=== PATIENT | female | born 1940 | race Caucasian/White ===

== ENCOUNTER 2016-06-04 15:44 | Inpatient (IN) | payer OTHER ==
[~2016-06-04] VITALS: Ht 162.6 cm; Wt 105.0 kg
[2016-06-04] MEDS: ISOSORBIDE MON. (IMDUR) 30 MG XR TAB PO SCH (09:00)
[~2016-06-04 15:44] MED LIST: /DULO30CA; /WARF25TA; /WARF25TA OR; ABIL5TAB; ACET500C PO; ACET65TA OR; ALOP5TAB; ASPI1TAB PO; ASPI81TA83; ATIV1TAB7 PO; BUPR150T PO; CARV3.12 PO; CARV6.25 OR; CLOP75TA2 PO; COLA50CA OR; CORE12.5; CORE6.25; CORE6.25 PO; DONETAB6 PO; DRAM50TA7 PO; DULO20CA; FENT12PA TOP; HUMALOG INSULIN INJ; HUMULOG; HYDR25TA6; INSUH10VL SC; INSULANT; INSULIN LANTUS; INSULIN LANTUS SQ; LASI20TA PO; LISI-538 PO; LISI10TA4; LISI20TA5; LISIPOW PO; MELO15TA4 PO; MILKSUS; MILKSUS OR; MIRA3350 PO; MIRALEX PO; NITR4TASL SL; OXYC-517 PO; OXYC1TAB23 PO; PERC5TAB8; PERC7.5T8; PERC7.5T8 PO; PLAVIX PO; PRIL20CA PO; SENN8.6T14; SERO200T; SERO400T; SPIR25TA2 PO; SPIRONOLACTONE-HCTZ PO; TIZA2CAP3 PO; TRAZ100T OR; TRAZ25TA PO; TRAZ50TA; VICODINES TAB; VITA100037 PO; ZOLP5TAB PO
[2016-06-04] MEDS ORDERED: ISOSORBIDE MONONITRATE 10MG TABLET PO SCH (16:00)
[2016-06-04] MEDS ORDERED: ASPIRIN 81 MG CHEW TABLET As Ordered ONE (16:27)
[2016-06-04 16:57] LABS: MEAN CORPUSCULAR HEMOGLOBIN 23.6 pg (27.0-33.0); MEAN CORPUSCULAR HGB CONC 29.8 g/dl (32.0-36.5); MEAN CORPUSCULAR VOLUME 79.1 fl (80.0-96.0); PLATELET COUNT, AUTOMATED 390 k/mm3 (150-450); WHITE BLOOD COUNT 8.9 K/mm3 (4.0-10.0)
--- NOTE | 2016-06-04 17:00 | REP ---
AP portable sitting chest radiograph 06/04 17 Indication: Chronic cough Comparison: PA and lateral chest 03/25/2016 and PA and lateral chest 07/11/2015, CTA chest 04/30/2014 Cardiac silhouette is mild to moderately enlarged and there is left ventricular prominence again noted. There is cephalization of pulmonary vasculature consistent with pulmonary venous hypertension. Small amount of bibasilar fibro atelectatic changes are noted Impression: Mild to moderate cardiomegaly with left ventricular prominence again noted. Pulmonary venous hypertension Bibasilar fibro atelectatic changes / scarring Signed by Lilia Cole MD 06/04/2016 04:51 P
[2016-06-04 17:13] LABS: CALCIUM LEVEL 8.6 MG/DL (8.8-10.2); CREATININE FOR GFR 1.35 MG/DL (0.55-1.02); GLOMERULAR FILTRATION RATE 40.8 (>39); POTASSIUM SERUM 4.1 MEQ/L (3.5-5.1)
[2016-06-04 17:18] LABS: BASOPHILS 1 % (0-4); EOSINOPHILS 1 % (0-5)
[2016-06-04 17:19] LABS: ANISOCYTOSIS 1+; HYPOCHROMASIA 2+; MICROCYTOSIS 1+
[2016-06-04] MEDS ORDERED: ISOVUE-370 76% 100ML VIAL (Q9967) As Ordered ONE (17:47)
--- NOTE | 2016-06-04 18:26 | REP ---
Clinical: Acute chest pain. Technique: Axial contrast enhanced images from the thoracic inlet to the upper abdomen using 100 ml Isovue 370 intravenous contrast material with coronal and sagittal re-formations. Findings: Satisfactory enhancement of the pulmonary vasculature is achieved and no filling defects are identified to suggest pulmonary embolus. Thoracic aorta is normal caliber without aneurysm or dissection. Cardiomegaly is appreciated along with mild pulmonary vascular congestion and trace atelectasis. No pleural or pericardial effusion. No pneumothorax. No adenopathy. Impression: No evidence for pulmonary embolus. Cardiomegaly with pulmonary venous congestion and trace atelectasis. Signed by Vivek Gaona MD 06/04/2016 06:17 P
[2016-06-04] MEDS ORDERED: GLUCOSE 4 GM CHEW TABLET PO PRN (18:45)
[2016-06-04] MEDS ORDERED: GLUCAGON FOR INJ 1 MG VIAL (J1610) SC PRN (18:45)
[2016-06-04] MEDS ORDERED: DEXTROSE 50% 50 ML SYRINGE IV PRN (18:45)
[2016-06-04] MEDS ORDERED: FUROSEMIDE 40 MG/4 ML VIAL (J1940) As Ordered ONE (18:48)
[2016-06-04] MEDS ORDERED: MORPHINE 2 MG/ML 1ML SYRINGE IV PRN ×2 (19:30→20:45)
[2016-06-04] MEDS ORDERED: METOPROLOL TART 25 MG TABLET As Ordered ONE (19:38)
[2016-06-04] MEDS ORDERED: ISOSORBIDE MON. (IMDUR) 30 MG XR TAB As Ordered ONE (19:38)
[2016-06-04] MEDS ORDERED: MORPHINE 2 MG/ML 1ML SYRINGE As Ordered ONE (19:38)
[2016-06-04] MEDS ORDERED: METO25TA74 PO (19:40)
[2016-06-04] MEDS ORDERED: BUPR300T34 PO (19:42)
[2016-06-04] MEDS ORDERED: BUPR150T3 PO (19:42)
[2016-06-04 19:43] LABS: RETIC HEMOGLOBIN CONTENT CHr 22.3 PG (24-36); RETICULOCYTE ABSOLUTE ADVIA212 80 x10(9)/L (17-77)
[2016-06-04] MEDS ORDERED: OMEP40CA2 PO (19:50)
[2016-06-04] MEDS ORDERED: INSULANT SC (19:50)
[2016-06-04] MEDS ORDERED: AMLO10TA2 PO (19:50)
[2016-06-04] MEDS ORDERED: FURO40TA2 PO (19:50)
[2016-06-04] MEDS ORDERED: ALBU17IN INH (19:50)
[2016-06-04 19:51] LABS: REASON FOR REVIEW COMPREHENSIVE REVIEW
[2016-06-04] MEDS ORDERED: ALBUTEROL 90 MCG/ACT 8GM HFA INHALER INH PRN (20:15)
[2016-06-04] MEDS ORDERED: NITROGLYCERIN 0.4 MG SUBL TABLET SL PRN (20:15)
[2016-06-04] MEDS ORDERED: LEVALBUTEROL 1.25 MG/0.5 ML CONCENTRATE NEB INH PRN (20:30)
[2016-06-04] MEDS: HumaLOG INSULIN (NovoLOG) PER UNIT SC SCH (21:00)
[2016-06-04] MEDS ORDERED: LEVEMIR (INSULIN DETEMIR) 1 UNITS/0.01ML SC SCH (21:00)
--- NOTE | 2016-06-04 21:25 | HPE ---
DATE OF ADMISSION: 06/04/2016 INPATIENT HOSPITALIST: Dr. Marcelo Dunlap CHIEF COMPLAINT: Cough, shortness of breath, chest pressure. HISTORY OF THE PRESENT ILLNESS: The patient is a 76-year-old female with a history of coronary artery disease, status post myocardial infarction (AR), chronic low back pain, depression, diabetes, hypercholesterolemia, 40 pack-year history of smoking, breast cancer, iron deficiency anemia, previous narcotic withdrawal and overdose, presents to the emergency room with a 3-day history of worsening cough and shortness of breath and chest tightness for the past 4 days, described in the substernal area without any radiation, accompanied by worsening shortness of breath and exercise intolerance. The patient has been sleeping on 2-3 pillows. No recent weight gain. She has lost 5 pounds in the past 2 weeks. No lower extremity edema. The patient complains of orthopnea, waking up at night 3- 4 times due to worsening shortness of breath. The patient has had a chronic cough, which is dry, since June of last year in 2015. She has been referred to electronic equipment installer, Dr. Coley, who had done pulmonary function testing last week with followup on 06/15/2016. Results were not available. She has also followed up Adali Barger at Dr. Ojeda's office, who has recommended a stress test which the patient has declined due to financial reasons. She now presents with worsening shortness of breath and chest pain. Denies any fever or chills. No cough production. No sick contacts. She was found to have pulmonary venous hypertension, BNP of 723 and admitted for congestive heart failure, new onset. She was also found to be severely anemic with a hemoglobin of 7.4, but denied any bright red blood per rectum, melena, coffee-ground emesis or hematemesis, black tarry stools at home. Hospitalist service was called for admission for symptomatic anemia, congestive heart failure. She otherwise denies any fever, chills, nausea, vomiting, diaphoresis, upper or lower extremity numbness, tingling sensation. Complains of generalized weakness, insomnia secondary to increasing shortness of breath. Denies any depression or anxiety. All other systems are otherwise negative. The patient is noncompliant with salt intake and has been eating a lot of soup, which is store bought in cans. She admits to not following a salt restriction. PAST MEDICAL HISTORY: Coronary artery disease, AR, stent. Hypertension. Hyperlipidemia. Previous smoker. Chronic low back pain. Depression. Diabetes. Narcotic withdrawal. Breast cancer. Iron deficiency anemia that has not been treated. PAST SURGICAL HISTORY: Hysterectomy. Cholecystectomy. Coronary stents. Carpal tunnel repair bilaterally. Knee replacement bilaterally. Right lumpectomy. ALLERGIES: To STATINS. AMARYL causing shaky. CODEINE upset stomach. STRAWBERRIES causing a rash. TRAZODONE confusion. GABAPENTIN confusion. LYRICA confusion. AUGMENTIN vomiting. BYETTA makes her feel weird. HOME MEDICATIONS: - metatarsal 25 mg daily - lorazepam 1 mg nightly as needed - bupropion 450 mg once daily - Nitroquick 0.4 every 5 minutesPRN chest pain - spironolactone 25 mg daily - Plavix 75 mg daily - Norvasc 10 mg daily - Coreg 3.125 mg twice a day - Lasix 40 mg daily - aspirin 81 mg daily - Prilosec 40 mg daily - Lantus insulin 60 units nightly - Novolin insulin sliding scale SOCIAL HISTORY: Formerly smoked, quit over 10 years ago. No alcohol use or recreational drug use. , lives with spouse. FAMILY HISTORY: Father with colon cancer, mother with cerebrovascular accident. Siblings with cerebrovascular accident and cystic fibrosis in two brothers and a sister. REVIEW OF SYSTEMS: Per history of the present illness. Twelve point system otherwise negative. PHYSICAL EXAMINATION: Vital Signs: Blood pressure 168/80, pulse 93, respiratory rate 18, temperature 98.1, 99% on 2 liters nasal cannula. 105.69 kg. 5 feet 6 inches tall. General: The patient is in mild distress, unable to speak in full sentences. Mild use of respiratory accessory muscles. Positive jugular venous distention. Pupils are round and reactive to light. Dry mucous membranes. No pharyngeal erythema, tonsillar exudate. No cervical lymphadenopathy, thyromegaly. Lungs: Diminished breath sounds, bilateral rales and rhonchi. Heart: S1, S2, sinus rhythm. No murmurs, rubs or gallops. Abdomen: Soft, nontender, nondistended. Positive bowel sounds. Obese abdomen. Extremities: No pitting edema. No cyanosis, clubbing. EKG: Sinus rhythm, ventricular rate of 81, occasional PVCs, VT interval 195, QRS duration 106. Nonspecific T-wave abnormality. LABORATORY DATA: White count 8.9, hemoglobin 7.4, hematocrit 24, platelet count 390. Sodium 143, potassium 4.1, chloride 108, bicarbonate 27, BUN 18, creatinine 1.35, glucose 107, A1c 7.1, BNP 723. CT chest: No pulmonary embolism (PE). Pulmonary venous congestion and trace atelectasis. ASSESSMENT AND PLAN: This is a 76-year-old female with a history of breast cancer, chronic iron deficiency anemia, not treated, chronic cough since June 2015, pulmonary function test done by Dr. Coley but no results available, coronary artery disease, myocardial infarction, coronary stents, on chronic aspirin and Plavix, hypertension, hypercholesterolemia, previous history of smoking, chronic low back pain, diabetes, hypertension, presents to the emergency room with worsening shortness of breath for the past 4 days and complains of chest pressure and tightness. EKG is unremarkable for acute ischemia. Troponin is negative. Chest x-ray shows pulmonary venous hypertension. BNP is elevated at 723. The patient is admitted for congestive heart failure, new onset, secondary to symptomatic anemia with hemoglobin of 7.4. She will be admitted as an inpatient for two midnights, assigned to hospitalist service, Dr. Marcelo Dunlap. IMPRESSION: Congestive heart failure, most likely secondary to severe symptomatic anemia. The patient's cardiac marker is negative. EKG is unremarkable for acute ST-T wave changes. She will be admitted to the progressive care unit (PCU) under telemetry. Strict intake and output, daily weights and fluid restriction. Lasix every 6 hours and treat underlying precipitating factor, which is her anemia. At this time, she also complains of chest pressure and tightness. Troponins will be cycled every 6 hours and nitroglycerin will be made available. She will be started on control blood pressure. The patient will be continued on her home medications, Coreg, aspirin and Plavix and spironolactone. If ongoing chest pain and elevated blood pressure, will start on nitro paste for better blood pressure control. At this time, the patient will be given Imdur and hydralazine as creatinine is abnormal at 3.15 with acute kidney injury. Symptomatic anemia. Hemoglobin of 7.4. Check iron studies, hemoccult stool, transfuse 3 units of blood, congestive heart failure with Lasix routinely and check peripheral smear and reticulocyte count, start on iron , bowel regimen and vitamin C. Hypertension, uncontrolled, due to shortness of breath, congestive heart failure and the patient will be given hydralazine and nitrates, due to acute kidney injury, she will be continued on her beta blockade, spironolactone and Lasix. Hypercholesterolemia. Check fasting lipid profile in the morning. The patient has had adverse effects from statins in the past. Chronic cough. Nebulizer treatments for now and Prilosec. Obtain results of PFTs from Dr. Coley's office. Nebulizer treatments routinely and as needed. History of breast cancer, chronic. Type 2 diabetes. Consistent carbohydrate diet, insulin sliding scale. Continue on Levemir insulin, titrate accordingly for better glycemic control. Chronic back pain. Outpatient followup with Dr. Weeks at the pain clinic. Prior history of smoking, quit in 1987. The patient will be assigned to Dr. Marcelo Dunlap at 10:00 p.m. on 06/04/2016. He will assume care of this patient at 7:00 a.m. on 06/05/2016. GRICEL
--- NOTE | 2016-06-04 21:30 | EDDOCDS ---
Physician Documentation [facility] Name: Aubree Deleon Age: 76 yrs Sex: Female : 1940 Arrival Date: 06/04/2016 Time: 15:44 Bed 12 Private MD: Disposition: 06/04 18:44 Critical Care: Critical care not applicable. pc Disposition: 06/04/16 18:47 Hospitalization ordered by Reyna Jolly for Inpatient Admission. Preliminary diagnosis are Dyspnea, Acute systolic (congestive) heart failure, Type 2 diabetes mellitus. - Bed requested for M ICU. - Status is Inpatient Admission. jmb - Condition is Stable. - Problem is new. - Symptoms are unchanged. HPI: 16:24 This 76 yrs old Female presents to ER via Ambulance with complaints of Chest pc Pain. 16:24 The history is obtained from the patient. She has had a cough for 11 months, has felt pc worse over the past 3 days and became SOB just MINING MANAGER while at rest. She had chest pain, centrally, while coughing. EMS was called and they gave NTG x 6 without relief. However, her only concern during my interview is to get a CT of her chest done today, instead of having to do it as an out-patient tomorrow as previously scheduled by Dr. Coley. She has seen Cardiology and Pulmonology in the past week for the ongoing cough and SOB. She has had PFTs done and has a scheduled CT as above. Her Livestock Farm Manager offered a stress test that she has declined. Historical: - Allergies: Bgpvnpp-Uwe-Lqz Reductase Inhibitors; Amaryl (shaking); Codeine Sulfate (Upset stomach); Strawberries (Rash); Trazodone (confusion); GABAPENTIN (confusion); Lyrica (confusion); Augmentin (Vomit); Byetta (makes her feel weird); - Home Meds: 1. metoprolol succinate 25 mg Tb24 1 tab once daily (Last dose: 06/04/2016 08:00) 2. lorazepam 1 mg Oral tab qhs prn (Last dose: 06/03/2016 20:00) 3. bupropion HCl 450 mg Oral Tb24 once daily (Last dose: 06/04/2016 08:00) 4. NitroQuick 0.4 mg SL subl 1 tab every 5 minutes (Last dose: 06/04/2016 15:50) 5. spironolactone 25 mg Oral tab once daily (Last dose: 06/04/2016 08:00) 6. Plavix 75 mg Oral tab once daily (Last dose: 06/04/2016 08:00) 7. amlodipine 10 mg Oral tab 1 tab once daily (Last dose: 06/04/2016 08:00) 8. carvedilol 3.125 mg oral tab 2 times per day (Last dose: 06/04/2016 08:00) 9. furosemide 40 mg Oral tab 1 tab once daily (Last dose: 06/04/2016 08:00) 10. aspirin 81 mg Oral tab 1 tab once daily (Last dose: 06/04/2016 08:00) 11. aspirin 81 mg Oral tab 1 tab once daily (Last dose: 06/04/2016 08:00) 12. omeprazole 40 mg Oral cpDR 1 cap once daily (Last dose: 06/04/2016 08:00) 13. Lantus 100 unit/mL Sub-Q crtg 60 unit nightly (Last dose: 06/03/2016 20:00) 14. Novolog 100 unit/mL Sub-Q soln sliding scale (Last dose: 06/04/2016 12:00) - PMHx: Depression; Diabetes - IDDM: controlled; Hypercholesterolemia; Hypertension; CO; Chronic Low Back Pain; narcotic withdrawl (overdose); Breast CA; Iron Deficiency Anemia - not treated; - PSHx: Hysterectomy; Cholecystectomy; Coronary Stents; Carpal Tunnel Repair- Bilateral; knee replacement bilaterally; Lumpectomy- Right; - The history from nurses notes was reviewed: and I agree with what is documented. - Social history: Smoking status: Patient states was never smoker of tobacco. No barriers to communication noted, Speaks appropriately for age. - : The pt / caregiver states he / she is not on anticoagulants. The pt / caregiver states he / she is on anticoagulants: Plavix. Home medication list is obtained from the patient. - Hospitalizations: : No recent hospitalization is reported. - Exposure Risk Screening:: None identified. - Immunization history:: All immunizations up-to-date. - Family history: Not pertinent. - Social history:: the patient is a non-smoker, the patient does not drink alcohol. ROS: 16:28 MS/Skin/Lymph: chronic back pain. pc 16:28 All systems are negative except as listed. Exam: 16:28 General Appearance: no acute distress, alert. pc 16:28 EENT: normal eye inspection, ears, nose and throat normal, pharynx normal, mucous membranes moist 16:28 Neck: The exam reveals no acute abnormalities. ROM is normal and painless. No nuchal rigidity is noted.. 16:28 Respiratory: no respiratory distress, normal breath sounds, chest non-tender. 16:28 CVS: regular pulse rate, regular rhythm, normal S1 and S2, no murmurs, strong peripheral pulses, normal capillary refill. 16:28 Abdomen: soft, non-tender, no organomegaly, normal bowel sounds. 16:28 Back: normal inspection. 16:28 Skin: skin color is normal, warm, dry. 16:28 Extremities: The extremities have a grossly normal appearance, are non-tender, without acute ROM abnormalities, no pedal edema. 16:28 Neuro: oriented x 3, cranial nerves normal as tested, no motor deficits, no sensory deficits. 16:28 Psych: normal mood. Vital Signs: 16:00 BP 168 / 80; Pulse 93; Resp 18; Temp 98.1(O); Pulse Ox 99% on 2 lpm NC; Weight 105.69 dem1 kg / 233.01 lbs; Height 5 ft. 6 in. (167.64 cm); Pain 4/10; 16:12 BP 143 / 65 (auto/); ml6 16:12 Pulse 82 MON; Resp 16; Pulse Ox 99% on 2 lpm NC; ml6 16:27 BP 156 / 74 (auto/); ml6 16:27 Pulse 82 MON; Resp 16; Pulse Ox 99% on 2 lpm NC; ml6 16:42 BP 170 / 72 (auto/); ml6 16:42 Pulse 80 MON; Resp 18; Pulse Ox 99% on 2 lpm NC; ml6 16:57 BP 167 / 77 (auto/); ml6 16:57 Pulse 80 MON; Resp 18; Pulse Ox 98% on 2 lpm NC; ml6 17:12 BP 163 / 75 (auto/); ml6 17:12 Pulse 80 MON; Resp 18; Pulse Ox 99% on 2 lpm NC; Pain 0/10; ml6 17:27 BP 163 / 74 (auto/); ml6 17:27 Pulse 80 MON; Resp 16; Pulse Ox 99% on 2 lpm NC; Pain 0/10; ml6 17:42 BP 166 / 77 (auto/); ml6 17:42 Pulse 82 MON; Resp 18; Pulse Ox 99% on 2 lpm NC; ml6 17:57 BP 174 / 68 (auto/); ml6 17:57 Pulse 92 MON; Resp 16; Pulse Ox 98% on 2 lpm NC; ml6 18:12 BP 170 / 74 (auto/); ml6 18:12 Pulse 86 MON; Resp 18; Pulse Ox 98% on 2 lpm NC; Pain 0/10; ml6 18:27 BP 181 / 78 (auto/); ml6 18:27 Pulse 86 MON; Resp 16; Temp 97.8(O); Pulse Ox 99% on 2 lpm NC; Pain 0/10; ml6 18:42 Pulse 86 MON; Pulse Ox 98% ; mlc 18:42 BP 169 / 72 (auto/); mlc 18:57 Pulse 92 MON; Pulse Ox 99% ; mlc 18:57 BP 182 / 84 (auto/); mlc 19:12 Pulse 92 MON; Pulse Ox 96% ; mlc 19:12 BP 187 / 87 (auto/); mlc 19:27 Pulse 92 MON; Pulse Ox 97% ; mlc 19:27 BP 198 / 81 (auto/); mlc 19:46 BP 195 / 84 (auto/); mlc 19:46 Pulse 90 MON; Pulse Ox 97% ; mlc 19:57 BP 164 / 80 (auto/); mlc 19:57 Pulse 92 MON; Pulse Ox 96% ; mlc 20:12 Pulse 84 MON; Pulse Ox 97% ; mlc 20:12 BP 169 / 74 (auto/); mlc 20:27 Pulse 74 MON; Pulse Ox 97% ; mlc 20:27 BP 150 / 67 (auto/); mlc 20:38 BP 129 / 68 (auto/); mlc 20:38 Pulse 68 MON; Pulse Ox 97% ; mlc 20:42 Pulse 72 MON; Pulse Ox 97% ; mlc 20:42 BP 136 / 64 (auto/); mlc 20:52 Pulse 64 MON; Pulse Ox 97% ; mlc 20:52 BP 124 / 60 (auto/); mlc 20:57 BP 137 / 62 (auto/); mlc 20:57 Pulse 66 MON; Pulse Ox 96% ; mlc 21:09 BP 129 / 61 (auto/); mlc 21:09 Pulse 64 MON; Pulse Ox 96% ; mlc 21:12 BP 138 / 65 (auto/); mlc 21:12 Pulse 64 MON; Pulse Ox 96% ; mlc 16:00 Body Mass Index 37.61 (105.69 kg, 167.64 cm) dem1 MDM: 15:59 ECG WITH READING ER PHYS+CARDIAG ordered. EDMS 16:20 Maintenance Mechanic 2Nd Shift/Pulse Ox/q 30 min VS ordered. pc 16:20 IV Saline Lock ordered. pc 16:20 Rhythm Strip to chart ordered. pc 16:21 Basic Metabolic Profile Ordered. EDMS 16:21 CBC with Diff Ordered. EDMS 16:21 Cardiac Injury Profile Ordered. EDMS 16:21 Troponin Ordered. EDMS 16:21 BNP Ordered. EDMS 16:22 Chest, 1 View Ordered. EDMS 16:23 Aspirin Chewable Tablet 324 mg PO once ordered. pc 16:25 A1C Ordered. EDMS 16:28 Differential Diagnosis: reported dyspnea with normal examination; central chest pain pc with cough, history of CAD and refusing stress test. Plan: labs, EKG, CXR, meds. 16:43 Financial registration complete. lg 17:00 DIFFERENTIAL NO CHARGE Ordered. EDMS 17:38 [facility] Payment Agreement was scanned into [employer] and attached to record. gjb 17:38 Basic Metabolic Profile Reviewed. pc 17:38 CBC with Diff Reviewed. pc 17:38 BNP Reviewed. pc 17:38 A1C Reviewed. pc 17:38 Cardiac Injury Profile Reviewed. pc 17:38 Troponin Reviewed. pc 17:38 PLATELET ESTIMATE Reviewed. pc 17:38 Chest, 1 View Reviewed. pc 17:44 CT Chest Angio R/O PE Ordered. EDMS 18:43 Data reviewed: old medical records, vital signs, nurses notes, EKG(s), lab test pc results, all radiology studies and available results. Test interpretation: EKG. 18:44 Test interpretation: LAB - all labs as ordered have been reviewed, interpreted and pc considered in the overall management of the clinical presentation; X-RAY - interpreted by Radiologist and personally reviewed, 1 view chest cardiomegaly, PVH, bibasilar atelectasis interpreted by Radiologist and personally reviewed, Chest CT; No PE, mild CHF. The patient has been re-examined and re-evaluated. There is no appreciated change of the patient's symptoms at this time. Physician consultation: Dr. Reyna Jolly was contacted at 18:46, regarding admission, and will see patient in ED, shortly. Disposition: The historical points, examination findings, and any diagnostic results supporting the provided diagnosis, were discussed with the patient or legal guardian. The need for further work-up and/or treatment in the hospital was explained. 18:45 PHYSICAL THERAPY EVAL & TREAT ordered. EDMS 18:46 Admission / Observation Status ordered. EDMS 18:46 ECHOCARD,DOPPLER/COLOR FLOW ordered. EDMS 18:47 THYROID STIMULATING HORMONE Ordered. EDMS 18:47 IRON (FE) Ordered. EDMS 18:47 TOTAL IRON BINDING CAPACIT Ordered. EDMS 18:47 FERRITIN Ordered. EDMS 18:47 RETICULOCYTE COUNT Ordered. EDMS 18:47 PATHOLOGIST REVIEW COMPREHENSI Ordered. EDMS 18:47 Furosemide 80 mg IVP once ordered. pc 18:49 BED REQUEST+ADM ordered. EDMS 18:50 PACKED CELLS Ordered. EDMS 18:50 TYPE & SCREEN Ordered. EDMS 18:50 ELECTROCARDIOGRAM ADULT ordered. EDMS 19:31 CARDIAC MARKER PANEL Ordered. EDMS 19:31 CARDIAC MARKER PANEL Ordered. EDMS 19:31 CARDIAC MARKER PANEL Ordered. EDMS 19:33 COMPLETE BLOOD COUNT Ordered. EDMS 19:33 BASIC METABOLIC PROFILE Ordered. EDMS 19:33 CARDIAC RISK PROFILE Ordered. EDMS 19:33 THYROID STIMULATING HORMONE Ordered. EDMS 19:34 MAGNESIUM LEVEL Ordered. EDMS 19:34 MAGNESIUM LEVEL Ordered. EDMS 19:34 BASIC METABOLIC PROFILE Ordered. EDMS 19:35 morphine 2 mg IVP once ordered. mlc 19:35 Spironolactone 25 mg PO once ordered. mlc 19:35 Metoprolol (Tartrate) 25 mg PO once ordered. mlc 19:35 Isosorbide Mononitrate 30 mg PO once ordered. mlc 20:37 ELECTROCARDIOGRAM ADULT ordered. EDMS 20:39 ELECTROCARDIOGRAM ADULT ordered. EDMS 20:45 CONSISTENT CARBOHYDRATES ordered. EDMS EC:43 Rate is 81 beats/min. Rhythm is regular, Normal Sinus Rhythm with Occasional PVCs. QRS pc [place] is Normal. [place] interval is normal. QRS interval is normal. QT interval is normal. No Q waves. T waves are Normal. No ST changes noted. Clinical impression: Normal Sinus Rhythm and PVCs. Administered Medications: 16:36 Not Given (patient states given 4 baby asprin by emss): Aspirin Chewable Tablet 324 mg ml6 PO once 18:53 Drug: Furosemide 80 mg [furosemide 10 mg/mL injection solution (8 mL)] Route: IVP; ml6 Site: left antecubital; 19:51 Drug: morphine 2 mg [morphine 2 mg/mL intravenous cartridge (1 mL)] Route: IVP; Site: mlc left antecubital; 19:51 Drug: Metoprolol 25 mg [metoprolol tartrate 25 mg tablet (1 tabs)] Route: PO; mlc 20:16 Drug: Spironolactone 25 mg [spironolactone 25 mg tablet (1 tabs)] Route: PO; mlc 20:16 Drug: Isosorbide Mononitrate 30 mg Route: PO; [facility] Signatures: Dispatcher [employer] EDMS Juan Ramon Resendiz MD MD pc Newman, Jill New, RN RN jan Ganter, LoriLee, Selwyn Worley lg, RN RN Bolivar Briceno RN RN jmb Booth, Mandy, RN RN mlc Beck, Gabriela gjb The chart was reviewed and I authenticate all verbal orders and agree with the evaluation and treatment provided.Corrections: (The following items were deleted from the chart) 16:28 16:16 PMHx: back Pain Chronic; ml6 pc 17:14 16:16 Allergies: Amaryl; ml6 ml6 17:14 16:16 Allergies: Codeine Sulfate; ml6 ml6 20:45 18:46 CONSISTENT CARBOHYDRATES ordered. EDMS EDMS Attachments: 17:38 [facility] Payment Agreement [facility]
--- NOTE | 2016-06-04 21:30 | EDDOCDS ---
Nurse's Notes [facility] Name: Aubree Deleon Age: 76 yrs Sex: Female : 1940 Arrival Date: 06/04/2016 Time: 15:44 Bed 12 Private MD: Diagnosis: Dyspnea;Acute systolic (congestive) heart failure;Type 2 diabetes mellitus Presentation: 06/04 16:00 Presenting complaint: EMS states: states a cough and chest pressure since June of ml6 2015, patient states increased coughing past 3 days and increased chest pain today. Patient given 6 NTG SL by EMS with relief of chest pain. Aspirin was not taken prior to arrival. Adult Sepsis Screening: The patient does not have new or worsening altered mentation. Patient's respiratory rate is less than 22. Systolic blood pressure is greater than 100. Patient has a qSOFA score of 0- Negative Sepsis Screen. Suicide/Homicide risk assessment- the patient denies having any suicidal and/or homicidal ideations and does not present with any other emotional, behavioral or mental health complaints. Status: Patient is not a branch service specialist or dependent. Transition of care: patient was not received from another setting of care. 16:00 Acuity: JOSÉ Level 2 ml6 16:00 Method Of Arrival: Ambulance ml6 Triage Assessment: 16:00 General: Appears in no apparent distress, comfortable, Behavior is appropriate for age, ml6 cooperative. Pain: Denies pain. The patient is triaged at the bedside. See Assessment in Nurses Notes section of ED record. Neurological: No deficits noted. Level of Consciousness is awake, alert, Oriented to person, place, time, Construction Carpenters Helper are equal bilaterally. Cardiovascular: Capillary refill < 3 seconds is brisk in bilateral fingers toes Heart tones S1 S2 present Edema is absent. Pulses are all present. Rhythm is regular Chest pain is denied is described as mild, quality is pressure, radiates Does not radiate. episodes are continuous began june. Respiratory: No deficits noted. Airway is patent Respiratory effort is even, unlabored, Respiratory pattern is regular, symmetrical, Breath sounds are clear bilaterally. Respiratory: Reports shortness of breath on exertion cough that is non-productive, dry, hacking, the patient has moderate shortness of breath. GI: No deficits noted. Abdomen is obese, Bowel sounds present X 4 quads. Historical: - Allergies: Ybeqexz-Lor-Zbw Reductase Inhibitors; Amaryl (shaking); Codeine Sulfate (Upset stomach); Strawberries (Rash); Trazodone (confusion); GABAPENTIN (confusion); Lyrica (confusion); Augmentin (Vomit); Byetta (makes her feel weird); - Home Meds: 1. metoprolol succinate 25 mg Tb24 1 tab once daily (Last dose: 06/04/2016 08:00) 2. lorazepam 1 mg Oral tab qhs prn (Last dose: 06/03/2016 20:00) 3. bupropion HCl 450 mg Oral Tb24 once daily (Last dose: 06/04/2016 08:00) 4. NitroQuick 0.4 mg SL subl 1 tab every 5 minutes (Last dose: 06/04/2016 15:50) 5. spironolactone 25 mg Oral tab once daily (Last dose: 06/04/2016 08:00) 6. Plavix 75 mg Oral tab once daily (Last dose: 06/04/2016 08:00) 7. amlodipine 10 mg Oral tab 1 tab once daily (Last dose: 06/04/2016 08:00) 8. carvedilol 3.125 mg oral tab 2 times per day (Last dose: 06/04/2016 08:00) 9. furosemide 40 mg Oral tab 1 tab once daily (Last dose: 06/04/2016 08:00) 10. aspirin 81 mg Oral tab 1 tab once daily (Last dose: 06/04/2016 08:00) 11. aspirin 81 mg Oral tab 1 tab once daily (Last dose: 06/04/2016 08:00) 12. omeprazole 40 mg Oral cpDR 1 cap once daily (Last dose: 06/04/2016 08:00) 13. Lantus 100 unit/mL Sub-Q crtg 60 unit nightly (Last dose: 06/03/2016 20:00) 14. Novolog 100 unit/mL Sub-Q soln sliding scale (Last dose: 06/04/2016 12:00) - PMHx: Depression; Diabetes - IDDM: controlled; Hypercholesterolemia; Hypertension; [place]; Chronic Low Back Pain; narcotic withdrawl (overdose); Breast CA; Iron Deficiency Anemia - not treated; - PSHx: Hysterectomy; Cholecystectomy; Coronary Stents; Carpal Tunnel Repair- Bilateral; knee replacement bilaterally; Lumpectomy- Right; - The history from nurses notes was reviewed: and I agree with what is documented. - Social history: Smoking status: Patient states was never smoker of tobacco. No barriers to communication noted, Speaks appropriately for age. - : The pt / caregiver states he / she is not on anticoagulants. The pt / caregiver states he / she is on anticoagulants: Plavix. Home medication list is obtained from the patient. - Hospitalizations: : No recent hospitalization is reported. - Exposure Risk Screening:: None identified. - Immunization history:: All immunizations up-to-date. - Family history: Not pertinent. - Social history:: the patient is a non-smoker, the patient does not drink alcohol. Screenin:52 Screening information is obtained from the patient. Fall risk: No risks identified. ml6 Assistance ADL's: requires no assistance with activities of daily living. Abuse/DV Screen: The patient / caregiver reports he/she is: not in a situation that causes fear, pain or injury. Nutritional screening: No deficits noted. Advance Directives: Currently, there is no health care proxy. home support is adequate. Assessment: 16:00 General: see triage assessment. Cardiovascular: Capillary refill < 3 seconds is brisk ml6 in bilateral fingers toes Heart tones S1 S2 present. 16:53 Reassessment: Patient appears in no apparent distress at this time. Patient denies pain ml6 at this time. Patient states feeling better. Patient states symptoms have improved. Cardiovascular: Capillary refill < 3 seconds is brisk in bilateral fingers toes Heart tones S1 S2 present Edema is absent. Pulses are all present. Rhythm is regular Chest pain is denied. 18:01 General: Appears in no apparent distress, comfortable. Respiratory: Airway is patent is ml6 compromised Respiratory effort is even, Respiratory pattern is regular, symmetrical, Breath sounds are clear bilaterally. Reports cough that is non-productive, dry, the patient has mild shortness of breath. GI: No deficits noted. 19:51 General: Appears in no apparent distress, comfortable, Behavior is cooperative. mlc General:. Pain: Location: chest Pain currently is 4 out of 10 on a pain scale. Quality of pain is described as pressure. Neurological: Level of Consciousness is awake, alert, Oriented to person, place, time. Cardiovascular: Heart tones S1 S2 present. Respiratory: Airway is patent Respiratory effort is even, unlabored, Respiratory pattern is regular. Respiratory: Reports cough that is non-productive, persistent. Derm: Skin is pale. 20:18 Reassessment: Patient appears in no apparent distress at this time. no changes since mlc prior. pt sitting at bedside. 21:22 General: Appears in no apparent distress, comfortable, Behavior is cooperative, Blood mlc transfusing per order. Pain: Pain currently is 3 out of 10 on a pain scale. Neurological: Level of Consciousness is awake, alert, obeys commands, Oriented to person, place, time. Respiratory: Breath sounds are clear bilaterally. Derm: Skin is pale. Vital Signs: 16:00 BP 168 / 80; Pulse 93; Resp 18; Temp 98.1(O); Pulse Ox 99% on 2 lpm NC; Weight 105.69 dem1 kg; Height 5 ft. 6 in. (167.64 cm); Pain 4/10; 16:12 BP 143 / 65 (auto/); ml6 16:12 Pulse 82 MON; Resp 16; Pulse Ox 99% on 2 lpm NC; ml6 16:27 BP 156 / 74 (auto/); ml6 16:27 Pulse 82 MON; Resp 16; Pulse Ox 99% on 2 lpm NC; ml6 16:42 BP 170 / 72 (auto/); ml6 16:42 Pulse 80 MON; Resp 18; Pulse Ox 99% on 2 lpm NC; ml6 16:57 BP 167 / 77 (auto/); ml6 16:57 Pulse 80 MON; Resp 18; Pulse Ox 98% on 2 lpm NC; ml6 17:12 BP 163 / 75 (auto/); ml6 17:12 Pulse 80 MON; Resp 18; Pulse Ox 99% on 2 lpm NC; Pain 0/10; ml6 17:27 BP 163 / 74 (auto/); ml6 17:27 Pulse 80 MON; Resp 16; Pulse Ox 99% on 2 lpm NC; Pain 0/10; ml6 17:42 BP 166 / 77 (auto/); ml6 17:42 Pulse 82 MON; Resp 18; Pulse Ox 99% on 2 lpm NC; ml6 17:57 BP 174 / 68 (auto/); ml6 17:57 Pulse 92 MON; Resp 16; Pulse Ox 98% on 2 lpm NC; ml6 18:12 BP 170 / 74 (auto/); ml6 18:12 Pulse 86 MON; Resp 18; Pulse Ox 98% on 2 lpm NC; Pain 0/10; ml6 18:27 BP 181 / 78 (auto/); ml6 18:27 Pulse 86 MON; Resp 16; Temp 97.8(O); Pulse Ox 99% on 2 lpm NC; Pain 0/10; ml6 18:42 Pulse 86 MON; Pulse Ox 98% ; mlc 18:42 BP 169 / 72 (auto/); mlc 18:57 Pulse 92 MON; Pulse Ox 99% ; mlc 18:57 BP 182 / 84 (auto/); mlc 19:12 Pulse 92 MON; Pulse Ox 96% ; mlc 19:12 BP 187 / 87 (auto/); mlc 19:27 Pulse 92 MON; Pulse Ox 97% ; mlc 19:27 BP 198 / 81 (auto/); mlc 19:46 BP 195 / 84 (auto/); mlc 19:46 Pulse 90 MON; Pulse Ox 97% ; mlc 19:57 BP 164 / 80 (auto/); mlc 19:57 Pulse 92 MON; Pulse Ox 96% ; mlc 20:12 Pulse 84 MON; Pulse Ox 97% ; mlc 20:12 BP 169 / 74 (auto/); mlc 20:27 Pulse 74 MON; Pulse Ox 97% ; mlc 20:27 BP 150 / 67 (auto/); mlc 20:38 BP 129 / 68 (auto/); mlc 20:38 Pulse 68 MON; Pulse Ox 97% ; mlc 20:42 Pulse 72 MON; Pulse Ox 97% ; mlc 20:42 BP 136 / 64 (auto/); mlc 20:52 Pulse 64 MON; Pulse Ox 97% ; mlc 20:52 BP 124 / 60 (auto/); mlc 20:57 BP 137 / 62 (auto/); mlc 20:57 Pulse 66 MON; Pulse Ox 96% ; mlc 21:09 BP 129 / 61 (auto/); mlc 21:09 Pulse 64 MON; Pulse Ox 96% ; mlc 21:12 BP 138 / 65 (auto/); mlc 21:12 Pulse 64 MON; Pulse Ox 96% ; mlc 16:00 Body Mass Index 37.61 (105.69 kg, 167.64 cm) [facility] Vitals: 16:00 Log In Time N/A - ambulance arrival. [facility] ED Course: 15:45 Patient visited by Janice Rowe, Prototype Deicer Assembler. deg 15:45 Patient moved to Waiting deg 15:46 Patient moved to 12 deg 15:52 Juan Ramon Resendiz MD is Attending Physician. pc 16:00 Patient visited by Nba Mendiola. dem1 16:05 Triage Initiated ml6 16:09 Accompanied by Family Member, Patient has correct armband on for positive ct3 identification. Placed in gown. Bed in low position. Side rails up X2. monitoring tech on. Pulse ox on. NIBP on. 16:09 EKG done. (by ED staff). Reviewed by Juan Ramon Resendiz MD. ct3 16:11 Patient visited by Cindy Young PCA. ct3 16:19 Patient visited by Juan Ramon Resendiz MD. pc 16:52 Patient visited by Selwyn Jimenez, RN. ml6 16:52 Maintain field IV. Dressing intact. Good blood return noted. Site clean & dry. Gauge & ml6 site: 18g left AC. No procedures done that require assistance. 17:17 Patient visited by Selwyn Jimenez, LIBRA. ml6 17:33 Chest, 1 View Returned. EDMS 17:38 [facility] Payment Agreement was scanned into [employer] and attached to record. gjb 17:38 DIFFERENTIAL NO CHARGE Sent. pc 17:45 Patient name changed from Aubree\S\\S\Kormondy\S\ to Aubree\S\ \S\Kormondy. EDMS 18:07 Patient visited by Cindy Young PCA. ct3 18:40 Patient visited by Selwyn Jimenez, LIBRA. ml6 18:47 Reyna Jolly is Hospitalizing Provider. pc 19:00 Christine Ho,LIBRA is Primary Nurse. mlc 19:03 Patient visited by Pedro Sutton PCA. kb5 19:12 CT Chest Angio R/O PE Returned. EDMS 19:25 Patient visited by Angela Wagner PCA. cln 19:46 The patient / caregiver is instructed regarding the plan of care and ED course. mlc 20:08 Patient visited by Christine Ho,LIBRA. mlc 20:19 Patient visited by Christine Ho,LIBRA. mlc 20:55 Blood products: PRBCs X 1 unit given. See transfusion record. mlc Administered Medications: 16:36 Not Given (patient states given 4 baby asprin by emss): Aspirin Chewable Tablet 324 mg ml6 PO once 18:53 Drug: Furosemide 80 mg [furosemide 10 mg/mL injection solution (8 mL)] Route: IVP; ml6 Site: left antecubital; 19:51 Drug: morphine 2 mg [morphine 2 mg/mL intravenous cartridge (1 mL)] Route: IVP; Site: mlc left antecubital; 19:51 Drug: Metoprolol 25 mg [metoprolol tartrate 25 mg tablet (1 tabs)] Route: PO; mlc 20:16 Drug: Spironolactone 25 mg [spironolactone 25 mg tablet (1 tabs)] Route: PO; mlc 20:16 Drug: Isosorbide Mononitrate 30 mg Route: PO; mlc Intake: 20:18 PO: 300.00ml (Milk); Total: 300.00ml. mlc Output: 19:25 Urine: 450.00ml (Voided); Total: 450.00ml. cln 20:18 Urine: 500.00ml (Voided); Total: 950.00ml. mlc 20:44 Urine: 450.00ml (Voided); Total: 1400.00ml. mlc Order Results: Lab Order: Basic Metabolic Profile; SPEC'M 06/04/16 16:32 Test: GLUCOSE, FASTING; Value: 107; Range: 83-110; Units: MG/DL; Status: F Test: BLOOD UREA NITROGEN; Value: 18; Range: 7-18; Units: MG/DL; Status: F Test: CREATININE FOR GFR; Value: 1.35; Range: 0.55-1.02; Abnormal: Above high normal; Units: MG/DL; Status: F Test: GLOMERULAR FILTRATION RATE; Value: 40.8; Range: >39; Status: F Test: SODIUM LEVEL; Value: 143; Range: 136-145; Units: MEQ/L; Status: F Test: POTASSIUM SERUM; Value: 4.1; Range: 3.5-5.1; Units: MEQ/L; Status: F Test: CHLORIDE LEVEL; Value: 108; Range: 98-107; Abnormal: Above high normal; Units: MEQ/L; Status: F Test: CARBON DIOXIDE LEVEL; Value: 27; Range: 21-32; Units: MEQ/L; Status: F Test: ANION GAP; Value: 8; Range: 8-16; Units: MEQ/L; Status: F Test: CALCIUM LEVEL; Value: 8.6; Range: 8.8-10.2; Abnormal: Below low normal; Units: MG/DL; Status: F Test Note: ; Units are mL/min/1.73 m2 Chronic Kidney Disease Staging per NKF: Stage I & II GFR >=60 Normal to Mildly Decreased Stage III GFR 30-59 Moderately Decreased Stage IV GFR 15-29 Severely Decreased Stage V GFR <15 Very Little GFR Left ESRD GFR <15 on AGRICULTURAL EQUIPMENT SALESPERSON Lab Order: CBC with Diff; SPEC'M 06/04/16 16:32 Test: WHITE BLOOD COUNT; Value: 8.9; Range: 4.0-10.0; Units: K/mm3; Status: F Test: RED BLOOD COUNT; Value: 3.15; Range: 4.00-5.40; Abnormal: Below low normal; Units: M/mm3; Status: F Test: HEMOGLOBIN; Value: 7.4; Range: 12.0-16.0; Abnormal: Below low normal; Units: g/dl; Status: F Test: HEMATOCRIT; Value: 24.9; Range: 36.0-47.0; Abnormal: Below low normal; Units: %; Status: F Test: MEAN CORPUSCULAR VOLUME; Value: 79.1; Range: 80.0-96.0; Abnormal: Below low normal; Units: fl; Status: F Test: MEAN CORPUSCULAR HEMOGLOBIN; Value: 23.6; Range: 27.0-33.0; Abnormal: Below low normal; Units: pg; Status: F Test: MEAN CORPUSCULAR HGB CONC; Value: 29.8; Range: 32.0-36.5; Abnormal: Below low normal; Units: g/dl; Status: F Test: RED CELL DISTRIBUTION WIDTH; Value: 15.0; Range: 11.5-14.5; Abnormal: Above high normal; Units: %; Status: F Test: PLATELET COUNT, AUTOMATED; Value: 390; Range: 150-450; Units: k/mm3; Status: F Test: NEUTROPHILS; Value: 78; Range: 35-75; Abnormal: Above high normal; Units: %; Status: F Test: LYMPHOCYTES; Value: 19; Range: 16-52; Units: %; Status: F Test: MONOCYTES; Value: 1; Range: 0-8; Units: %; Status: F Test: EOSINOPHILS; Value: 1; Range: 0-5; Units: %; Status: F Test: BASOPHILS; Value: 1; Range: 0-4; Units: %; Status: F Test: HYPOCHROMASIA; Value: 2+; Status: F Test: ANISOCYTOSIS; Value: 1+; Status: F Test: MICROCYTOSIS; Value: 1+; Status: F Lab Order: Cardiac Injury Profile; [facility] 06/04/16 16:32 Test: CPK CREATINE PHOSPHOKINASE; Value: 80; Range: 26-192; Units: U/L; Status: F Test: CK-MB VALUE MASS; Value: 2.3; Range: 0.0-3.6; Units: NG/ML; Status: F Test: MB/CK RELATIVE INDEX; Value: 2.87; Range: < OR =4; Status: F Test Note: ; DIAGNOSIS CRITERIA MMB ng/ml Relative Index (RI) NON-AMI < or = 5 N/A [place] ZONE > 5 < or = 4 AMI > 5 > 4 Lab Order: Troponin; [facility] 06/04/16 16:32 Test: TROPONIN I; Value: 0.04; Range: < 0.10; Units: NG/ML; Status: F Test Note: ; Troponin I Reference Interval for [employer]: [employer] LOCI: 99th Percentile= 0.00-0.045 ng/ml Risk Stratification: <= 0.10 ng/ml Decreased Risk for Adverse Clinical Events. 0.10-1.50 ng/ml Increased Risk for Adverse Clinical Events. Evaluation of additional criterion and/or repeat testing in 2-6 hours is suggested to rule out myocardial damage. >= 1.50 ng/ml Indicative of Myocardial Injury. Lab Order: BNP; [facility] 16:32 Test: BRAIN NATRIURETIC PEPTIDE; Value: 723; Range: <100; Abnormal: Above high normal; Units: PG/ML; Status: F Lab Order: A1C; [facility] 06/04/16 16:32 Test: HEMOGLOBIN A1c; Value: 7.1; Range: 4.5-6.2; Abnormal: Above high normal; Units: %; Status: F Test: ESTIMATED AVERAGE GLUCOSE; Value: 157; Range: 60-110; Abnormal: Above high normal; Units: MG/DL; Status: F Lab Order: PLATELET ESTIMATE; [facility] 06/04/16 16:32 Test: PLATELET ESTIMATE; Value: NORMAL; Range: NORMAL; Status: F Lab Order: RETICULOCYTE COUNT; [facility] 06/04/16 19:01 Test: RETICULOCYTE % [id number]; Value: 2.30; Range: 0.5-1.5; Abnormal: Above high normal; Units: %; Status: F Test: RETICULOCYTE ABSOLUTE [id number]; Value: 80; Range: 17-77; Abnormal: Above high normal; Units: x10(9)/L; Status: F Test: RETIC HEMOGLOBIN CONTENT CHr; Value: 22.3; Range: 24-36; Abnormal: Below low normal; Units: PG; Status: F Lab Order: PATHOLOGIST REVIEW COMPREHENSI; [facility] 06/04/16 19:01 Test: SLIDE REVIEW; Value: Report; Status: F Test: SOURCE; Value: PERIPHERAL SMEAR; Status: F Test: REASON FOR REVIEW; Value: COMPREHENSIVE REVIEW; Status: F Test Note: ; Slide and/or specimen referred to Pathologist for review. Results of the review are located in the EMR Pathology module under Peripheral Smear when completed. Lab Order: TYPE & SCREEN; [facility] 06/04/16 19:01 Test: BLOOD TYPE; Value: A POS; Status: F Test: AB SCREEN (INDIRECT CORBY)GEL; Value: NEGATIVE; Status: F Test: IMMEDIATE SPIN CROSSMATCH; Value: [id number] A POSITIVE Compatible? Y; Status: F Test: IMMEDIATE SPIN CROSSMATCH; Value: [id number] A POSITIVE Compatible? Y; Status: F Test: IMMEDIATE SPIN CROSSMATCH; Value: [id number] A POSITIVE Compatible? Y; Status: F Radiology Order: Chest, 1 View Test: Chest, 1 View REASON FOR EXAMINATION: Shortness of Breath; AP portable sitting chest radiograph 06/04 16; ; Indication: Chronic cough; ; Comparison: PA and lateral chest 03/25/2016 and PA and lateral chest 07/11/2015,; CTA chest 04/30/2014; ; Cardiac silhouette is mild to moderately enlarged and there is left ventricular; prominence again noted. There is cephalization of pulmonary vasculature; consistent with pulmonary venous hypertension. Small amount of bibasilar fibro; atelectatic changes are noted; ; Impression:; ; Mild to moderate cardiomegaly with left ventricular prominence again noted.; ; Pulmonary venous hypertension; ; Bibasilar fibro atelectatic changes / scarring; ; ; ; ; Signed by; Lilia Cole MD 06/04/2016 04:51 P; Radiology Order: CT Chest Angio R/O PE Test: CT Chest Angio R/O PE REASON FOR EXAMINATION: Chest Pain; Clinical: Acute chest pain.; ; Technique: Axial contrast enhanced images from the thoracic inlet to the upper; abdomen using 100 ml Isovue 370 intravenous contrast material with coronal and; sagittal re-formations.; ; Findings: Satisfactory enhancement of the pulmonary vasculature is achieved and; no filling defects are identified to suggest pulmonary embolus. Thoracic aorta; is normal caliber without aneurysm or dissection. Cardiomegaly is appreciated; along with mild pulmonary vascular congestion and trace atelectasis. No pleural; or pericardial effusion. No pneumothorax. No adenopathy.; ; Impression:; No evidence for pulmonary embolus.; Cardiomegaly with pulmonary venous congestion and trace atelectasis.; ; ; Signed by; Vivek Gaona MD 06/04/2016 06:17 P; Outcome: 18:47 Decision to Hospitalize by Provider. pc 21:21 Discharge Assessment: Patient awake, alert and oriented x 3. No cognitive and/or mlc functional deficits noted. Patient verbalized understanding of disposition instructions. patient administered narcotics - no. Discharge Assessment: patient administered narcotics - yes. Patient was admitted to the hospital or transferred to another facility. The following High Risk Discharge criteria are identified: None. Admitted to ICU accompanied by nurse, accompanied by tech, via stretcher, with oxygen, on monitor, with chart. Condition: good Condition: stable. CT Study completed. Admission hand-off: Report called to Caroline. SMYTH. Property :Personal belongings accompany Pt. 21:29 Patient left the ED. jmb Signatures: Dispatcher [employer] EDMS Juan Ramon Resendiz MD MD pc Murray, Denise, Prototype Deicer Assembler Unit deg Pedro Sutton, TWINE WINDER TWINE WINDER kb5 Selwyn Jimenez RN RN ml6 Cindy Young, TWINE WINDER TWINE WINDER ct3 Nba Mendiola dem1 Bolivar Man RN RN Christine Dodge RN RN mlc Beck, Gabriela gjb Nichols, Crystal, TWINE WINDER TWINE WINDER cln Corrections: (The following items were deleted from the chart) 16:28 16:16 PMHx: back Pain Chronic; ml6 pc 17:14 16:16 Allergies: Amaryl; ml6 ml6 17:14 16:16 Allergies: Codeine Sulfate; ml6 ml6 MTDD
[2016-06-04 21:37] LABS: PERCENT SATURATION 3.4 % (13.2-37.4)
[2016-06-04 21:45] VITALS: BP 149/65
[2016-06-04] MEDS: DOCUSATE SODIUM 100 MG CAP PO SCH (22:05)
[2016-06-04] MEDS: LORazepam 1 MG TAB PO SCH (22:05)
[2016-06-04] MEDS: FERROUS SULFATE 325MG TAB PO SCH (22:06)
[2016-06-04] MEDS: HEPARIN SOD (PORCINE) 5000 UNITS/ML VIAL SC SCH (22:07)
[2016-06-04] MEDS: BENZONATATE 100 MG CAP PO PRN (22:52)
[2016-06-04 23:05] VITALS: BP 138/65
[2016-06-05] VITALS (7 sets, daily range): BP systolic 123–162; BP diastolic 56–72
[2016-06-05] MEDS ORDERED: LEVALBUTEROL 1.25 MG/0.5 ML CONCENTRATE NEB INH SCH
[2016-06-05] MEDS: FUROSEMIDE 40 MG/4 ML VIAL (J1940) IV SCH ×3 (00:17→11:40)
[2016-06-05] MEDS: hydrALAZINE INJ 20 MG/ML VIAL IV SCH ×3 (00:17→11:40)
[2016-06-05 00:39] LABS: CALCIUM LEVEL 8.8 MG/DL (8.8-10.2); CREATININE FOR GFR 1.56 MG/DL (0.55-1.02); GLOMERULAR FILTRATION RATE 34.5 (>39); POTASSIUM SERUM 4.1 MEQ/L (3.5-5.1)
[2016-06-05] MEDS: CEPACOL LOZENGE PO PRN ×2 (01:33→05:28)
[2016-06-05] MEDS: LEVALBUTEROL 1.25 MG/0.5 ML CONCENTRATE NEB INH PRN (01:39)
[2016-06-05 05:20] LABS: MEAN CORPUSCULAR HEMOGLOBIN 23.8 pg (27.0-33.0); MEAN CORPUSCULAR VOLUME 76.7 fl (80.0-96.0); RED CELL DISTRIBUTION WIDTH 17.1 % (11.5-14.5); WHITE BLOOD COUNT 10.4 K/mm3 (4.0-10.0)
[2016-06-05] MEDS: HEPARIN SOD (PORCINE) 5000 UNITS/ML VIAL SC SCH ×3 (05:22→20:59)
[2016-06-05] MEDS: ACETAMINOPHEN TAB 650MG DOSE (2X325MG) PO PRN ×3 (05:24→22:07)
[2016-06-05 05:33] LABS: CALCIUM LEVEL 8.8 MG/DL (8.8-10.2); CREATININE FOR GFR 1.48 MG/DL (0.55-1.02); GLOMERULAR FILTRATION RATE 36.7 (>39); POTASSIUM SERUM 3.7 MEQ/L (3.5-5.1)
[2016-06-05 05:47] LABS: MAGNESIUM LEVEL 1.9 MG/DL (1.8-2.4)
[2016-06-05] MEDS: HumaLOG INSULIN (NovoLOG) PER UNIT SC SCH ×4 (07:30→20:57)
[2016-06-05] MEDS: LEVALBUTEROL 1.25 MG/0.5 ML CONCENTRATE NEB INH SCH ×3 (08:08→19:23)
--- NOTE | 2016-06-05 08:28 | ECGEPIP ---
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
[2016-06-05] MEDS: FERROUS SULFATE 325MG TAB PO SCH ×2 (08:34→20:57)
[2016-06-05] MEDS: ASCORBIC ACID 500 MG TAB PO SCH ×2 (08:34→17:11)
[2016-06-05] MEDS: ISOSORBIDE MON. (IMDUR) 30 MG XR TAB PO SCH (08:34)
[2016-06-05] MEDS: SPIRONOLACTONE 25 MG TAB PO SCH (08:35)
[2016-06-05] MEDS: amLODIPine 10 MG TAB PO SCH (08:35)
[2016-06-05] MEDS: buPROPion **XL** TABLET 150MG (WELLBUTRIN XL) PO SCH (08:35)
[2016-06-05] MEDS: DOCUSATE SODIUM 100 MG CAP PO SCH ×2 (08:36→20:56)
[2016-06-05] MEDS: CLOPIDOGREL 75 MG TAB PO SCH (08:36)
[2016-06-05] MEDS ORDERED: OMEPRAZOLE 20 MG CAP PO SCH (09:00)
[2016-06-05] MEDS ORDERED: ASPIRIN 81 MG ENTERIC TAB PO SCH (09:00)
[2016-06-05] MEDS ORDERED: CARVedilol 3.125 MG TAB PO SCH (09:00)
--- NOTE | 2016-06-05 10:00 | ECGEPIP ---
Stationary ECG Study 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
--- NOTE | 2016-06-05 11:59 | IPNPDOC ---
Assessment/Plan Date Seen The patient was seen on 06/05/16. Problems Problems: (1) Acute CHF (congestive heart failure) Status: Acute Response to Treatment: Improving Problem Text: CT showed CM with pulm venous congestion and atelectasis Responding to small dose of IV Lasix - clinically does not appear to have severe decompensation Continue IV Lasix for now and consult cardiology for opinion since her heart failure on exam does not clearly explain her severe dyspnea. (2) Chronic cough Status: Acute Problem Text: Recently saw pulmonary who are arranging formal PFTs. Recommended CT which was done. Also recommended considering d/c of ELLA, but her med list here does not show that she is on an ELLA inhibitor. Will need to consult cardiology to clarify what she is actually taking at home because our med list at office does not match med list at pulmonary which does not match med list from cardiology which does not match med list here. I will augment her PPI since she saw GI in October and has Diaphragmatic hernia with previous h/o esoph dilation. (3) Iron deficiency anemia Status: Chronic Response to Treatment: Worse Problem Text: Hgb acutely worse than baseline, but may be dilutional from decompensated CHF - HGB improved slight since admission with diuresis and 3 units PRBC given Last EGD 09/2015 (Dr. 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 Langston) - Diverticulosis and polyps. Continue FESO4 (4) Takotsubo cardiomyopathy Status: Chronic Response to Treatment: Stable (5) CAD in [place] artery Status: Chronic Response to Treatment: Stable (6) Diabetes type 2, controlled Status: Chronic Response to Treatment: Stable Problem Text: Decrease Levemir slightly due to FBS 95 this am (7) Former smoker Status: Resolved Response to Treatment: Stable Plan / VTE VTE Prophylaxis Ordered?: Yes (SQ heparin) Subjective Review of Systems CC/HPI The patient is a 76-year-old female admitted with a reason for visit of Congestive Heart Failure. Events since last encounter Less SOB. Still with dry cough Constitutional: Denies: Chills, Fever Pulmonary: Reports: Cough, Dyspnea Cardiovascular: Denies: Chest Pain, Palpitations Gastrointestinal: Denies: Abdominal Pain, Constipation, Diarrhea, Nausea, Vomiting Objective Physical Examination General Exam: Positive: Alert, No Acute Distress Chest Exam: Positive: Diminished (decreased BS with few crackles at extreme bases. No wheezes or rhonchi) Heart Exam: Positive: Rate Normal, Regular Rhythm Abdomen Exam: Positive: Normal bowel sounds, Soft, Negative: Tenderness Extremity Exam: Negative: Edema Vital Signs/I&O Vital Signs Date Time Temp Pulse Resp B/P Pulse Ox O2 Delivery O2 Flow Rate FiO2 06/05/16 08:00 Room Air 06/05/16 08:00 96.6 79 22 126/58 93 06/04/16 21:45 2.0 I&O- Last 24 Hours up to 6 AM 06/05/16 05:59 Intake Total 360 ml Output Total 1525 ml Balance -1165 ml Laboratory Data Labs 24H Laboratory Tests 2 06/04/16 16:32: Anion Gap 8, Anisocytosis 1+, B-Type Natriuretic Peptide 723H, White Blood Count 8.9, Red Blood Count 3.15L, Hemoglobin 7.4L, Hematocrit 24.9L, Mean Corpuscular Volume 79.1L, Mean Corpuscular Hemoglobin 23.6L, Mean Corpuscular Hemoglobin Concent 29.8L, Red Cell Distribution Width 15.0H, Platelet Count 390 , Neutrophils (%) (Auto) , Lymphocytes (%) (Auto) , Monocytes (%) (Auto) , Eosinophils (%) (Auto) , Basophils (%) (Auto) , Neutrophils # (Auto) , Lymphocytes # (Auto) , Monocytes # (Auto) , Eosinophils # (Auto) , Basophils # ( Auto) , Basophils (Manual) 1, Blood Urea Nitrogen 18, Creatinine 1.35H, Sodium Level 143, Potassium Level 4.1, Chloride Level 108H, Carbon Dioxide Level 27, Calcium Level 8.6L, Total Creatine Kinase 80, Creatine Kinase MB 2.3, Creatine Kinase MB Relative Index 2.87, Eosinophils (Manual) 1, Estimated Mean Plasma Glucose 157H, Glomerular Filtration Rate 40.8, Hemoglobin A1c 7.1H, Hypochromasia 2+, Large Unclassified Cells # , Large Unclassified Cells % , Lymphocytes (Manual) 19, Microcytosis 1+, Monocytes (Manual) 1, Neutrophils 78H , Platelet Estimate NORMAL, Troponin I 0.04 06/04/16 19:01: Absolute Reticulocyte Count 80H, Differential Pathologist's Review COMPREHENSIVE REVIEW, Differential Slide Review Report, Ferritin 9, Iron Level 16L, Percent Reticulocyte Count 2.30H, Peripheral Blood Smear Path Consult PERIPHERAL SMEAR, Reticulocyte Hgb Content (CHr) 22.3L, Thyroid Stimulating Hormone (TSH) 1.940, Total Iron Binding Capacity 475H, Transferrin % Saturation 3.4L 06/04/16 21:56: Bedside Glucose (Misc Panel) 228H 06/05/16 00:03: Anion Gap 7L, Blood Urea Nitrogen 20H, Creatinine 1.56H, Sodium Level 140, Potassium Level 4.1, Chloride Level 102, Carbon Dioxide Level 31, Calcium Level 8.8, Total Creatine Kinase 93, Creatine Kinase MB 2.7, Creatine Kinase MB Relative Index 2.90, Glomerular Filtration Rate 34.5L, Troponin I 0.06#, Magnesium Level 2.0 06/05/16 04:42: Anion Gap 8, Blood Urea Nitrogen 20H, Creatinine 1.48H, Sodium Level 140, Potassium Level 3.7, Chloride Level 103, Carbon Dioxide Level 29, Calcium Level 8.8, Creatine Kinase MB 2.4, Creatine Kinase MB Relative Index 2.22, Glomerular Filtration Rate 36.7L, Total Creatine Kinase 108, Troponin I 0.05 06/05/16 04:43: Triglycerides Level 168H, Cholesterol Level 184, HDL Cholesterol 49, LDL Cholesterol 101.4H, Cholesterol/HDL Ratio 3.755, Magnesium Level 1.9, Non-HDL Cholesterol (LDL + VLDL) 135, Thyroid Stimulating Hormone (TSH) 3.400 06/05/16 07:39: Bedside Glucose (Misc Panel) 95 06/05/16 11:10: CBC/BMP Laboratory Tests 06/04/16 16:32 Calcium Level 8.6 L, Total Creatine Kinase 80, Red Blood Count 3.15 L, Mean Corpuscular Volume 79.1 L, Mean Corpuscular Hemoglobin 23.6 L, Mean Corpuscular Hemoglobin Concent 29.8 L, Red Cell Distribution Width 15.0 H, Neutrophils (%) ( Auto) , Lymphocytes (%) (Auto) , Monocytes (%) (Auto) , Eosinophils (%) (Auto) , Basophils (%) (Auto) , Neutrophils # (Auto) , Lymphocytes # (Auto) , Monocytes # (Auto) , Eosinophils # (Auto) , Basophils # (Auto) 06/05/16 00:03 Calcium Level 8.8, Total Creatine Kinase 93 06/05/16 04:42 Calcium Level 8.8 06/05/16 04:43 Red Blood Count 3.54 L, Mean Corpuscular Volume 76.7 L, Mean Corpuscular Hemoglobin 23.8 L, Mean Corpuscular Hemoglobin Concent 31.0 L, Red Cell Distribution Width 17.1 H FSBS Laboratory Tests Test 06/04/16 21:56 06/05/16 07:39 Range/Units Bedside Glucose (Misc Panel) 228 95 83-110 MG/DL Microbiology Microbiology 06/04/16 MRSA Screen, Received Pending DEANGELO BENSON PA-C Jun 05, 2016 11:59
--- NOTE | 2016-06-05 16:37 | CR.PDOC ---
[facility] Cardiology Consultation Date of Consultation 06/05/16 Cadiology Consultation REFERRING PHYSICIAN: Juan Jose Bay M.D. 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 Twin Martinez Takotsubo cardio myopathy secondary to stress. No progression of coronary artery disease. LV: Apical segment ballooning. LVEF 25%. Left main, LAD, LCx angiographically normal. RCA: Dominant. Patent stents (proximal & mid). Echocardiogram Doppler 07/30/2014 LVEF 55%. Mild concentric LVH (IVS 1.3 cm, posterior wall 1.2 cm). Normal LV wall motion and LV systolic function. Grade 1 LV diastolic dysfunction. Mild left atrial dilatation. Suggestive of mild pulmonary artery hypertension. Normal aortic valve. Structurally and functioning normal mitral valve with trace MR. Cardiac Symptom Status Patient reports chronic stable exertional dyspnea with low levels of ordinary activities of daily living beginning June 2015. Beginning 4 days prior to admission she developed rapidly progressive dyspnea to the point of dyspnea at rest as well as orthopnea and PND. She reports chronic fatigue both at rest and with activity. No leg or ankle swelling. She reports a nonproductive cough. Patient reports constant 24/7 moderate severity retrosternal chest pressure (no pain) without radiation beginning 4 days prior to admission. Both her dyspnea and chest pressure are much better following blood transfusion yesterday. No palpitations, presyncope/syncope, embolic events, or claudication. PAST MEDICAL: Cardiac past history as noted above. Systemic hypertension (1981) Hypercholesterolemia Remote prior smoking history Type 2 diabetes (diagnosis 2001) Obesity Acute kidney injury 11/30/2013 secondary to dehydration GERD Depression arthritis neuropathy seasonal allergic rhinitis Breast cancer (left breast, left breast lumpectomy 04/23/2014, status post radiation treatment) Migraine headaches Carpal tunnel release 07/2006 Bilateral knee surgeries Cholecystectomy 1997 Oophorectomy and partial hysterectomy 1974 FAMILY HISTORY: Father: Prostate cancer, Mother: Stroke, Brother 1: Cystic fibrosis, Brother 2: Unknown, at a few hours old. Sister 1: Stroke, Sister 2: Stroke, . Sister 3: Cystic fibrosis, . Sister 4: Arthritis, depression. SOCIAL HISTORY: . Retired [employer] (1998). Independent with all activities of daily living. Prior smoking history for packs per day 40 years, quit 1988. No alcohol. Limited by muscle pain and back pain and sciatica. REVIEW OF SYSTEMS: Fatigue, sleep disturbance. Watery and itchy eyes. Wears bifocal glasses. Dry mouth. Arthralgias, arthritis, leg cramps, myalgia. Dry skin. Status post left breast lumpectomy. Numbness and tingling in legs and feet. Depression. Mental stress. No anxiety or panic attacks. Anemia. Seasonal allergic rhinitis. All other 10 point review of systems questions negative. PHYSICAL EXAMINATION: VITAL SIGNS: Please see below. GENERAL APPEARANCE: - Obese. Not in any respiratory or psychologic distress. No gross head, facial, or skeletal deformities. EYES: No conjunctival pallor, scleral icterus or xanthelasma. ENT/Mouth: - Edentulous - Upper dentures. NECK: Jugular Venous Pulsations: 5 cm Trachea midline. No palpable thyroid. EXTREMITIES: No clubbing, nailbed cyanosis, or splinter hemorrhages. SKIN: No skin lesions. No skin pallor or icterus. NEUROLOGIC/PSYCHOLOGIC: Oriented to person, place, and time. Mood and affect normal. Speech normal. MUSCULOSKELETAL: Curvature of the spine normal. Gross motor strength and tone normal. No muscle atrophy, fasciculations, or tremors. - Gait not appropriate to test at this time. THORAX: Breathing appears unlabored with normal expansion. No dullness to percussion. Normal breath sounds. No crackles, wheezes, or prolonged expiration. HEART: No anterior chest scars or devices. No palpable apex beat. No left parasternal lifts, heaves, or thrills. S1 normal. S2 normal. No S3 or S4. No systolic clicks, opening snap, pericardial knock, or pericardial friction rubs No murmurs. ARTERIAL PULSES: Carotids normal in volume and contour and without bruits. No palpable abdominal aorta. Femoral pulses 2+/2 Pedal pulses 2+/2 LOWER EXTREMITY EDEMA: - No edema. ABDOMEN: Abdomen obese, soft nontender with normal bowel sounds. No abdominal bruits. No hepatomegaly, splenomegaly, or abdominal masses. - Liver span could not be determined due to abdominal obesity. - Stool for occult blood deferred. ALLERGIES: Please see below. HOME MEDICATIONS: Please see below. CURRENT MEDICATIONS: Please see below. Electrocardiogram: ECG 06/04/2016 at 4:06 PM: Sinus rhythm, 81 BPM, occasional PVCs, nonspecific T-wave abnormalities. LABORATORY DATA: Please see below. IMAGING: I have independently visualized the patient's AP portable sitting chest x-ray 06/04/2016. Presence of cardiomegaly with LV prominence. Primary vascular regurgitation present. Small amount of bibasilar fibril ectatic changes. Enlarged pulmonary arteries. ASSESSMENT/PLAN: 1. Precordial chest pain: I believe this patient's precordial chest pain is secondary to myocardial ischemia secondary to severe anemia. Precordial chest pain has nearly resolved following blood transfusion. Recommend transfusion of packed RBCs to keep hemoglobin above 10.0. 2. Diastolic heart failure (acute on chronic): Chronic NYHA functional class III. Currently compensated on examination. Recent exacerbation of chronic diastolic heart failure secondary to severe anemia. Currently NYHA functional class III. She has been improving considerably following blood transfusion. Recommend packed RBCs to keep hemoglobin above 10.0. Agree with carvedilol. Titrate carvedilol to target heart rate of 70 BPM. Discontinue metoprolol succinate. Discontinue amlodipine. Suggest addition of ACEI or ARB if blood pressure and renal function will tolerate. Discontinue hydralazine. Continue isosorbide mononitrate. Change IV furosemide to furosemide by mouth. Continue spironolactone. 3. CAD ([place] vessel) with secondary unstable angina (secondary to severe anemia). Status post proximal/mid RCA stent 06/2007. Her last coronary angiography showed patent RCA stents. Secondary unstable angina due to severe anemia. Recommend packed RBCs to keep hemoglobin above 10.0. Continue clopidogrel (patient finds this helps prevent migraines), carvedilol, isosorbide mononitrate, nitroglycerin sublingual when necessary. Recommend discontinuation of metoprolol succinate. Suggest upper titration of carvedilol to target heart rate of 70 BPM. Suggest addition of ACEI or ARB if blood pressure will tolerate. Recommend discontinuation of aspirin due to severe anemia. Recommend discontinuation of amlodipine. 4. Status post coronary stents (proximal/mid RCA 06/2007). As per CAD category above. 5. Primary systemic hypertension: Blood pressure presently controlled. 6. Hypertensive heart disease with CHF Her last echo Doppler showed mild concentric LVH, mild left atrial dilatation, and grade 1 LV diastolic dysfunction. As per diastolic heart failure and systemic hypertension categories above. 7. Frequent PVCs. Asymptomatic. Chronic. Stable. Thank you kindly for asking me to participate in the care of your patient. Vital Signs/I&O Vital Signs Date Time Temp Pulse Resp B/P Pulse Ox O2 Delivery O2 Flow Rate FiO2 06/05/16 12:00 97.0 74 22 123/59 95 Room Air 06/04/16 21:45 2.0 I&O- Last 24 Hours up to 6 AM 06/05/16 05:59 Intake Total 360 ml Output Total 1525 ml Balance -1165 ml Height (in): 64 Weight (kg): 96.3 BMI (kg): 36.4 Laboratory Data Labs 24H Laboratory Tests 2 06/04/16 16:32: Anion Gap 8, Anisocytosis 1+, B-Type Natriuretic Peptide 723H, White Blood Count 8.9, Red Blood Count 3.15L, Hemoglobin 7.4L, Hematocrit 24.9L, Mean Corpuscular Volume 79.1L, Mean Corpuscular Hemoglobin 23.6L, Mean Corpuscular Hemoglobin Concent 29.8L, Red Cell Distribution Width 15.0H, Platelet Count 390 , Neutrophils (%) (Auto) , Lymphocytes (%) (Auto) , Monocytes (%) (Auto) , Eosinophils (%) (Auto) , Basophils (%) (Auto) , Neutrophils # (Auto) , Lymphocytes # (Auto) , Monocytes # (Auto) , Eosinophils # (Auto) , Basophils # ( Auto) , Basophils (Manual) 1, Blood Urea Nitrogen 18, Creatinine 1.35H, Sodium Level 143, Potassium Level 4.1, Chloride Level 108H, Carbon Dioxide Level 27, Calcium Level 8.6L, Total Creatine Kinase 80, Creatine Kinase MB 2.3, Creatine Kinase MB Relative Index 2.87, Eosinophils (Manual) 1, Estimated Mean Plasma Glucose 157H, Glomerular Filtration Rate 40.8, Hemoglobin A1c 7.1H, Hypochromasia 2+, Large Unclassified Cells # , Large Unclassified Cells % , Lymphocytes (Manual) 19, Microcytosis 1+, Monocytes (Manual) 1, Neutrophils 78H , Platelet Estimate NORMAL, Troponin I 0.04 06/04/16 19:01: Absolute Reticulocyte Count 80H, Differential Pathologist's Review COMPREHENSIVE REVIEW, Differential Slide Review Report, Ferritin 9, Iron Level 16L, Percent Reticulocyte Count 2.30H, Peripheral Blood Smear Path Consult PERIPHERAL SMEAR, Reticulocyte Hgb Content (CHr) 22.3L, Thyroid Stimulating Hormone (TSH) 1.940, Total Iron Binding Capacity 475H, Transferrin % Saturation 3.4L 06/04/16 21:56: Bedside Glucose (Misc Panel) 228H 06/05/16 00:03: Anion Gap 7L, Blood Urea Nitrogen 20H, Creatinine 1.56H, Sodium Level 140, Potassium Level 4.1, Chloride Level 102, Carbon Dioxide Level 31, Calcium Level 8.8, Total Creatine Kinase 93, Creatine Kinase MB 2.7, Creatine Kinase MB Relative Index 2.90, Glomerular Filtration Rate 34.5L, Troponin I 0.06#, Magnesium Level 2.0 06/05/16 04:42: Anion Gap 8, Blood Urea Nitrogen 20H, Creatinine 1.48H, Sodium Level 140, Potassium Level 3.7, Chloride Level 103, Carbon Dioxide Level 29, Calcium Level 8.8, Creatine Kinase MB 2.4, Creatine Kinase MB Relative Index 2.22, Glomerular Filtration Rate 36.7L, Total Creatine Kinase 108, Troponin I 0.05 06/05/16 04:43: Triglycerides Level 168H, Cholesterol Level 184, HDL Cholesterol 49, LDL Cholesterol 101.4H, Cholesterol/HDL Ratio 3.755, Magnesium Level 1.9, Non-HDL Cholesterol (LDL + VLDL) 135, Thyroid Stimulating Hormone (TSH) 3.400 06/05/16 07:39: Bedside Glucose (Misc Panel) 95 06/05/16 11:10: Creatine Kinase MB 2.0, Creatine Kinase MB Relative Index 1.48, Total Creatine Kinase 135, Troponin I 0.04 06/05/16 11:33: Bedside Glucose (Misc Panel) 111H CBC/BMP Laboratory Tests 06/04/16 16:32 Calcium Level 8.6 L, Total Creatine Kinase 80, Red Blood Count 3.15 L, Mean Corpuscular Volume 79.1 L, Mean Corpuscular Hemoglobin 23.6 L, Mean Corpuscular Hemoglobin Concent 29.8 L, Red Cell Distribution Width 15.0 H, Neutrophils (%) ( Auto) , Lymphocytes (%) (Auto) , Monocytes (%) (Auto) , Eosinophils (%) (Auto) , Basophils (%) (Auto) , Neutrophils # (Auto) , Lymphocytes # (Auto) , Monocytes # (Auto) , Eosinophils # (Auto) , Basophils # (Auto) 06/05/16 00:03 Calcium Level 8.8, Total Creatine Kinase 93 06/05/16 04:42 Calcium Level 8.8 06/05/16 04:43 Red Blood Count 3.54 L, Mean Corpuscular Volume 76.7 L, Mean Corpuscular Hemoglobin 23.8 L, Mean Corpuscular Hemoglobin Concent 31.0 L, Red Cell Distribution Width 17.1 H FSBS Laboratory Tests Test 06/04/16 21:56 06/05/16 07:39 06/05/16 11:33 Range/Units Bedside Glucose (Misc Panel) 228 95 111 83-110 MG/DL Microbiology Microbiology 06/04/16 MRSA Screen, Received Pending Home Medications Scheduled Amlodipine Besylate (Amlodipine Besylate) 10 Mg Tab 10 MG PO DAILY (Reported) Aspirin (Aspirin 81) 81 Mg Tab 81 MG PO DAILY (Reported) Bupropion HCl (Bupropion HCl Xl) 300 Mg Tab 300 MG PO DAILY (Reported) 450MG TOTAL DAILY Bupropion Hcl (Bupropion HCl Xl) 150 Mg Tab 150 MG PO DAILY (Reported) 450MG TOTAL DAILY Carvedilol (Carvedilol) 3.125 Mg Tab 3.125 MG PO DAILY (Reported) Clopidogrel Bisulfate (Clopidogrel) 75 Mg Tab 75 MG PO DAILY (Reported) Furosemide (Furosemide) 40 Mg Tab 40 MG PO DAILY (Reported) Insulin Aspart (Novolog) 100 U/Ml Inj 0 SC AC (Reported) PER SLIDING SCALE, 10 - 15 UNITS Insulin Glargine (Lantus) 1 Units/0.01 Ml Susp 60 UNITS SC QHS (Reported) Lorazepam (Ativan) 1 Mg Tab 1 MG PO QHS (Reported) Metoprolol Succinate (Metoprolol Succinate ER) 25 Mg Tab 25 MG PO Q2D (Reported ) TAKES EVERY OTHER DAY BECAUSE IT MAKES HER FEEL WEIRD Omeprazole (Omeprazole) 40 Mg Cap 40 MG PO DAILY (Reported) Spironolactone (Spironolactone) 25 Mg Tab 25 MG PO DAILY (Reported) Scheduled PRN Albuterol Sulfate (Ventolin Hfa) 200 Puff/8 Gm Aers 2 PUFF INH Q4H PRN PRN SHORTNESS OF BREATH (Reported) Nitroglycerin (Nitrostat) 0.4 Mg Subl 0.4 MG SL Q5MP PRN PRN CHEST PAIN ( Reported) Current Medications Current Medications Acetaminophen (Tylenol) 650 mg Q6HP PRN PO PAIN / FEVER Last administered on 11:40; Start 06/05/16 at 05:00; Stop 07/05/16 at 04:59 Albuterol Sulfate (Proventil, Ventolin Hfa) 2 puff Q4H PRN INH SHORTNESS OF BREATH; Start 06/04/16 at 20:15; Stop 07/04/16 at 20:14 Amlodipine Besylate (Norvasc) 10 mg DAILY PO Last administered on 06/05/16 08: 35; Start 06/05/16 at 09:00; Stop 07/05/16 at 08:59 Ascorbic Acid (Vitamin C) 500 mg BIDWM PO Last administered on 06/05/16 08:34 ; Start 06/05/16 at 08:00; Stop 07/05/16 at 07:59 Aspirin (Aspirin Chewable) 324 mg STK-MED ONCE As Ordered ; Start 06/04/16 at 16 :27; Stop 06/04/16 at 16:28; Status DC Aspirin (Ecotrin) 81 mg DAILY PO Last administered on 06/05/16 08:35; Start at 09:00; Stop 07/05/16 at 08:59 Benzonatate (Tessalon Perles) 100 mg TIDP PRN PO COUGH Last administered on 22:52; Start 06/04/16 at 22:30; Stop 07/04/16 at 22:29 Bupropion HCl (Wellbutrin Xl) 300 mg DAILY PO Last administered on 06/05/16 08 :35; Start 06/05/16 at 09:00; Stop 07/05/16 at 08:59 Carvedilol (COReg) 3.125 mg DAILY PO Last administered on 06/05/16 08:35; Start 06/05/16 at 09:00; Stop 07/05/16 at 08:59 Cetylpyridinium Chloride (Cepacol) 1 bryan Q3HP PRN PO SORE THROAT Last administered on 06/05/16 05:28; Start 06/05/16 at 01:30; Stop 07/05/16 at 01:29 Clopidogrel Bisulfate (PLAVix) 75 mg DAILY PO Last administered on 06/05/16 08 :36; Start 06/05/16 at 09:00; Stop 07/05/16 at 08:59 Dextrose (Dextrose 50%) 25 ml ASDIRECTED PRN IV SEE LABEL COMMENTS; Start 06/04 at 18:45; Stop 07/04/16 at 18:44 Docusate Sodium (Colace) 100 mg BID PO Last administered on 06/05/16 08:36; Start 06/04/16 at 21:00; Stop 07/04/16 at 20:59 Ferrous Sulfate (Ferrous Sulfate) 325 mg BID PO Last administered on 06/05/16 08:34; Start 06/04/16 at 21:00; Stop 07/04/16 at 20:59 Furosemide (Lasix) 20 mg Q6H IV Last administered on 06/05/16 05:24; Start at 00:00; Stop 06/05/16 at 12:05; Status DC Furosemide (Lasix) 40 mg Q6H IV ; Start 06/05/16 at 18:00; Stop 07/05/16 at 17: 59 Furosemide (Lasix) 80 mg STK-MED ONCE As Ordered ; Start 06/04/16 at 18:48; Stop 06/04/16 at 18:49; Status DC Glucagon (Glucagon) 1 mg ASDIRECTED PRN SC SEE LABEL COMMENTS; Start 06/04/16 at 18:45; Stop 07/04/16 at 18:44 Glucose (Glucose) 16 GM ASDIRECTED PRN PO SEE LABEL COMMENTS; Start 06/04/16 at 18:45; Stop 07/04/16 at 18:44 Heparin Sodium (Porcine) (Heparin) 5,000 units Q8H SC Last administered on 06/05 14:30; Start 06/04/16 at 22:00; Stop 06/09/16 at 21:59 Home Med (Med Rec Complete!) ASDIRECTED XX ; Start 06/04/16 at 20:00; Stop 05/09 at 20:11; Status DC Hydralazine HCl (Apresoline) 10 mg Q6H IV Last administered on 06/05/16 05:23 ; Start 06/05/16 at 00:00; Stop 07/05/16 at 00:00 Insulin Detemir (Levemir Insulin) 50 units QHS SC ; Start 06/05/16 at 21:00; Stop 07/05/16 at 20:59 Insulin Detemir (Levemir Insulin) 60 units QHS SC Last administered on 22:07; Start 06/04/16 at 21:00; Stop 06/05/16 at 12:05; Status DC Insulin Human Lispro (HumaLOG INSULIN) SEE PROTOCOL TABLE AC SC Last administered on 06/05/16 11:40; Start 06/05/16 at 07:30; Stop 07/05/16 at 07:29 Insulin Human Lispro (HumaLOG INSULIN) SEE PROTOCOL TABLE QHS SC ; Start at 21:00; Stop 07/04/16 at 20:59 Iopamidol (Isovue-370 76%) 100 ml STK-MED ONCE As Ordered ; Start 06/04/16 at 17 :47; Stop 06/04/16 at 17:48; Status DC Isosorbide Mononitrate (Imdur) 30 mg DAILY PO Last administered on 06/05/16 08 :34; Start 06/04/16 at 09:00; Stop 07/04/16 at 08:59 Isosorbide Mononitrate (Imdur) 30 mg STK-MED ONCE As Ordered ; Start 06/04/16 at 19:38; Stop 06/04/16 at 19:39; Status DC Isosorbide Mononitrate (Ismo, Monoket) 30 mg BID@09,16 PO ; Start 06/04/16 at 16 :00; Stop 06/04/16 at 20:04; Status DC Levalbuterol HCl (Xopenex Neb) 1.25 mg Q1HP PRN INH SHORTNESS OF BREATH; Start 06/04/16 at 20:30; Stop 06/04/16 at 22:35; Status DC Levalbuterol HCl (Xopenex Neb) 1.25 mg Q2HP PRN INH SHORTNESS OF BREATH Last administered on 06/05/16 01:39; Start 06/04/16 at 23:30; Stop 07/04/16 at 23:29 Levalbuterol HCl (Xopenex Neb) 1.25 mg RQ4H INH ; Start 06/05/16 at 00:00; Stop 06/05/16 at 00:00; Status DC Levalbuterol HCl (Xopenex Neb) 1.25 mg RQ6H INH Last administered on 06/05/16 13:42; Start 06/05/16 at 08:00; Stop 07/05/16 at 07:59 Lorazepam (Ativan) 1 mg QHS PO Last administered on 06/04/16 22:05; Start 05/09 at 21:00; Stop 06/11/16 at 20:59 Metoprolol Succinate (TopROL XL) 25 mg Q2D PO ; Start 06/06/16 at 09:00; Stop at 08:59 Metoprolol Tartrate (Lopressor) 25 mg STK-MED ONCE As Ordered ; Start 06/04/16 at 19:38; Stop 06/04/16 at 19:39; Status DC Morphine Sulfate (Morphine Sulfate Inj) 2 mg Q4HP PRN IV PAIN; Start 06/04/16 at 19:30; Stop 06/04/16 at 22:35; Status DC Morphine Sulfate (Morphine Sulfate Inj) 2 mg Q4HP PRN IV PAIN; Start 06/04/16 at 20:45; Stop 06/04/16 at 21:39; Status DC Morphine Sulfate (Morphine Sulfate Inj) 2 mg STK-MED ONCE As Ordered ; Start 05/09 at 19:38; Stop 06/04/16 at 19:39; Status DC Nitroglycerin (Nitrostat (1/ 150)) 0.4 mg Q5MP PRN SL CHEST PAIN; Start at 20:15; Stop 07/04/16 at 20:14 Omeprazole (PriLOSEC) 40 mg BID PO ; Start 06/05/16 at 21:00; Stop 07/05/16 at 20:59 Omeprazole (PriLOSEC) 40 mg DAILY PO Last administered on 06/05/16 08:36; Start 06/05/16 at 09:00; Stop 06/05/16 at 12:05; Status DC Spironolactone (Aldactone) 25 mg DAILY PO Last administered on 06/05/16t 08:35 ; Start 06/05/16 at 09:00; Stop 07/05/16 at 08:59 Allergies Allergies: Coded Allergies: [place] (Verified Allergy, Intermediate, SORES IN MOUTH, 08/23/12) Glimepiride (Unverified Allergy, Mild, SHAKINESS, 08/23/12) Exenatide (Unverified Allergy, Unknown, "FEELS WEIRD", 06/04/16) Gabapentin (Unverified Allergy, Unknown, CONFUSION, 06/04/16) No Known Drug Allergy (Verified Allergy, Unknown, 08/23/12) Phenol (Unverified Allergy, Unknown, "FEELS WEIRD", 06/04/16) Trazodone (Unverified Allergy, Unknown, CONFUSION, 06/04/16) CI Pigment Blue 63 (Verified Adverse Reaction, Mild, DIDN'T SLEEP, 02/23/14 ) Duloxetine (Verified Adverse Reaction, Mild, DIDN'T SLEEP, 02/23/14) Pregabalin (Verified Adverse Reaction, Mild, GI UPSET, 02/23/14) Amoxicillin (Unverified Adverse Reaction, Unknown, VOMIT, 06/04/16) Clavulanic Acid (Unverified Adverse Reaction, Unknown, VOMIT, 06/04/16) Codeine (Unverified Adverse Reaction, Unknown, UPSET STOMACH, 06/04/16) aBlbir Harding Jun 05, 2016 16:37
[2016-06-05] MEDS: FUROSEMIDE 40 MG TAB PO SCH (17:11)
[2016-06-05] MEDS ORDERED: FUROSEMIDE 40 MG/4 ML VIAL (J1940) IV SCH (18:00)
--- NOTE | 2016-06-05 20:29 | ECGEPIP ---
Stationary ECG Study [facility] Test Date: 2016-06-05 Pat Name: WEN SCHWAB Department: Room: [place] [address] Gender: F [employer]: HAO : 1940 Requested By: MIC Miranda Order Number: [id number] Reading MD: Balbir Siegel Measurements Intervals [place] Rate: 79 P: 67 FL: 197 QRS: -3 QRSD: 117 T: 72 QT: 415 QTc: 478 Interpretive Statements SINUS RHYTHM WITH OCCASIONAL VENTRICULAR PREMATURE COMPLEXES QTc prolongation LEFT VENTRICULAR HYPERTROPHY AND ST-T CHANGE Electronically Signed On 06-05-2016 20:29:19 EST by Balbir Siegel
[2016-06-05] MEDS: CARVedilol 6.25 MG TAB PO SCH (20:57)
[2016-06-05] MEDS: OMEPRAZOLE 20 MG CAP PO SCH (20:57)
[2016-06-05] MEDS: LORazepam 1 MG TAB PO SCH (20:57)
[2016-06-05] MEDS ORDERED: LEVEMIR (INSULIN DETEMIR) 1 UNITS/0.01ML SC SCH (21:00)
[2016-06-06] VITALS: BP 138/63
[2016-06-06] MEDS: BENZONATATE 100 MG CAP PO PRN (00:44)
[2016-06-06] MEDS: LEVALBUTEROL 1.25 MG/0.5 ML CONCENTRATE NEB INH SCH ×4 (02:00→19:57)
[2016-06-06 04:00] VITALS: BP 144/60
[2016-06-06 04:36] LABS: MEAN CORPUSCULAR HEMOGLOBIN 24.7 pg (27.0-33.0); MEAN CORPUSCULAR HGB CONC 31.6 g/dl (32.0-36.5); MEAN CORPUSCULAR VOLUME 78.2 fl (80.0-96.0); RED CELL DISTRIBUTION WIDTH 15.9 % (11.5-14.5); WHITE BLOOD COUNT 7.5 K/mm3 (4.0-10.0)
[2016-06-06] MEDS: LEVALBUTEROL 1.25 MG/0.5 ML CONCENTRATE NEB INH PRN (04:39)
[2016-06-06 04:58] LABS: CALCIUM LEVEL 8.9 MG/DL (8.8-10.2); CREATININE FOR GFR 1.54 MG/DL (0.55-1.02); GLOMERULAR FILTRATION RATE 35.1 (>39); POTASSIUM SERUM 3.6 MEQ/L (3.5-5.1)
[2016-06-06] MEDS: HEPARIN SOD (PORCINE) 5000 UNITS/ML VIAL SC SCH ×3 (05:55→21:33)
[2016-06-06] MEDS: ACETAMINOPHEN TAB 650MG DOSE (2X325MG) PO PRN (05:55)
[2016-06-06] MEDS: HumaLOG INSULIN (NovoLOG) PER UNIT SC SCH ×4 (07:30→21:00)
[2016-06-06 08:00] VITALS: BP 126/60
[2016-06-06] MEDS: DOCUSATE SODIUM 100 MG CAP PO SCH ×2 (08:37→21:00)
[2016-06-06] MEDS: amLODIPine 10 MG TAB PO SCH (08:37)
[2016-06-06] MEDS: SPIRONOLACTONE 25 MG TAB PO SCH (08:37)
[2016-06-06] MEDS: OMEPRAZOLE 20 MG CAP PO SCH ×2 (08:37→21:34)
[2016-06-06] MEDS: buPROPion **XL** TABLET 150MG (WELLBUTRIN XL) PO SCH (08:38)
[2016-06-06] MEDS: ASCORBIC ACID 500 MG TAB PO SCH ×2 (08:38→17:50)
[2016-06-06] MEDS: CARVedilol 6.25 MG TAB PO SCH ×2 (08:38→18:00)
[2016-06-06] MEDS: FUROSEMIDE 40 MG TAB PO SCH ×2 (08:38→17:50)
[2016-06-06] MEDS: ISOSORBIDE MON. (IMDUR) 30 MG XR TAB PO SCH (08:38)
[2016-06-06] MEDS: CLOPIDOGREL 75 MG TAB PO SCH (08:42)
[2016-06-06] MEDS: FERROUS SULFATE 325MG TAB PO SCH ×2 (08:42→21:34)
[2016-06-06] MEDS ORDERED: METOPROLOL SUCC *XL* 25MG TAB (TopROL *XL*) PO SCH (09:00)
--- NOTE | 2016-06-06 10:19 | IPN ---
DATE: 06/06/2016 Aubree was seen in the intensive care unit (ICU), she had just woken up, she felt a little unsure of herself. Denied any shortness of breath, denied any chest pain. Seen by Dr. Harding yesterday, appreciate his involvement. PHYSICAL EXAMINATION: Blood pressure 126/60, pulse 70, respiratory rate 18, 97% oxygen saturation on room air. General Appearance: Alert, conversant. No jugular venous distention (JVD). Lungs: Decreased breath sounds but clear. Heart: Regular rhythm with a 2/6 systolic murmur apex. Abdomen: Soft, nontender. No masses. Extremities: Trace peripheral edema. IMPRESSION: 1. Diastolic heart failure, acute on chronic. Medications have been adjusted by Dr. Harding, patient has improved from admission. Still not ready for discharge. Will be watching her for a few days on her new medical regimen. Might be ready for discharge Wednesday or Wednesday. 2. Coronary artery disease. Chronic chest pain, felt to be nonanginal. 3. Hypertension. Blood pressure under adequate control. 4. Chronic cough. Etiology is unknown. She has been taken off angiotensin-converting enzyme (ELLA) inhibitor. She has been on a proton pump inhibitor (PPI). She has had a history of esophageal dilatation. 5. Iron deficiency anemia. Follow CBCs. Three units of blood transfused. On iron. 6. Type 2 diabetes. Reduce the dose of her Levemir insulin from 50 to 40 units daily in the face of blood sugars in the low 100s. 7. Chronic kidney disease, stage III. GFR is in the mid 30s. Renally adjust medication doses, avoid nonsteroidal anti-inflammatory drugs (NSAIDs).
[2016-06-06 12:00] VITALS: BP 130/59
[2016-06-06 16:00] VITALS: BP 148/64
[2016-06-06] MEDS ORDERED: POTASSIUM CHLORIDE 10 MEQ SR TABLET PO ONE (19:15)
[2016-06-06] MEDS ORDERED: FUROSEMIDE 40 MG/4 ML VIAL (J1940) IV ONE (19:15)
[2016-06-06 20:00] VITALS: BP 172/68
[2016-06-06] MEDS: LEVEMIR (INSULIN DETEMIR) 1 UNITS/0.01ML SC SCH (21:33)
[2016-06-06] MEDS: LORazepam 1 MG TAB PO SCH (21:34)
[2016-06-06] MEDS: ISOSORBIDE MONONITRATE 10MG TABLET PO SCH (21:55)
--- NOTE | 2016-06-06 22:30 | EDDOCDS ---
Physician Documentation [facility] Name: Aubree Deleon Age: 76 yrs Sex: Female : 1940 Arrival Date: 06/04/2016 Time: 15:44 Bed 12 Private MD: Disposition: 06/04 18:44 Critical Care: Critical care not applicable. pc Disposition: 06/04/16 18:47 Hospitalization ordered by Reyna Jolly for Inpatient Admission. Preliminary diagnosis are Dyspnea, Acute systolic (congestive) heart failure, Type 2 diabetes mellitus. - Bed requested for M ICU. - Status is Inpatient Admission. jmb - Condition is Stable. - Problem is new. - Symptoms are unchanged. HPI: 16:24 This 76 yrs old Female presents to ER via Ambulance with complaints of Chest pc Pain. 16:24 The history is obtained from the patient. 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 She had chest pain, centrally, while coughing. EMS was called and they gave NTG x 6 without relief. However, her only concern during my interview is to get a CT of her chest done today, instead of having to do it as an out-patient tomorrow as previously scheduled by Dr. Coley. She has seen Cardiology and Pulmonology in the past week for the ongoing cough and SOB. She has had PFTs done and has a scheduled CT as above. Her Examining Officer offered a stress test that she has declined. Historical: - Allergies: Slabwsd-Iru-Daq Reductase Inhibitors; Amaryl (shaking); Codeine Sulfate (Upset stomach); Strawberries (Rash); Trazodone (confusion); GABAPENTIN (confusion); Lyrica (confusion); Augmentin (Vomit); Byetta (makes her feel weird); - Home Meds: 1. metoprolol succinate 25 mg Tb24 1 tab once daily (Last dose: 06/04/2016 08:00) 2. lorazepam 1 mg Oral tab qhs prn (Last dose: 06/03/2016 20:00) 3. bupropion HCl 450 mg Oral Tb24 once daily (Last dose: 06/04/2016 08:00) 4. NitroQuick 0.4 mg SL subl 1 tab every 5 minutes (Last dose: 06/04/2016 15:50) 5. spironolactone 25 mg Oral tab once daily (Last dose: 06/04/2016 08:00) 6. Plavix 75 mg Oral tab once daily (Last dose: 06/04/2016 08:00) 7. amlodipine 10 mg Oral tab 1 tab once daily (Last dose: 06/04/2016 08:00) 8. carvedilol 3.125 mg oral tab 2 times per day (Last dose: 06/04/2016 08:00) 9. furosemide 40 mg Oral tab 1 tab once daily (Last dose: 06/04/2016 08:00) 10. aspirin 81 mg Oral tab 1 tab once daily (Last dose: 06/04/2016 08:00) 11. aspirin 81 mg Oral tab 1 tab once daily (Last dose: 06/04/2016 08:00) 12. omeprazole 40 mg Oral cpDR 1 cap once daily (Last dose: 06/04/2016 08:00) 13. Lantus 100 unit/mL Sub-Q crtg 60 unit nightly (Last dose: 06/03/2016 20:00) 14. Novolog 100 unit/mL Sub-Q soln sliding scale (Last dose: 06/04/2016 12:00) - PMHx: Depression; Diabetes - IDDM: controlled; Hypercholesterolemia; Hypertension; HI; Chronic Low Back Pain; narcotic withdrawl (overdose); Breast CA; Iron Deficiency Anemia - not treated; - PSHx: Hysterectomy; Cholecystectomy; Coronary Stents; Carpal Tunnel Repair- Bilateral; knee replacement bilaterally; Lumpectomy- Right; - The history from nurses notes was reviewed: and I agree with what is documented. - Social history: Smoking status: Patient states was never smoker of tobacco. No barriers to communication noted, Speaks appropriately for age. - : The pt / caregiver states he / she is not on anticoagulants. The pt / caregiver states he / she is on anticoagulants: Plavix. Home medication list is obtained from the patient. - Hospitalizations: : No recent hospitalization is reported. - Exposure Risk Screening:: None identified. - Immunization history:: All immunizations up-to-date. - Family history: Not pertinent. - Social history:: the patient is a non-smoker, the patient does not drink alcohol. ROS: 16:28 MS/Skin/Lymph: chronic back pain. pc 16:28 All systems are negative except as listed. Exam: 16:28 General Appearance: no acute distress, alert. pc 16:28 EENT: normal eye inspection, ears, nose and throat normal, pharynx normal, mucous membranes moist 16:28 Neck: The exam reveals no acute abnormalities. ROM is normal and painless. No nuchal rigidity is noted.. 16:28 Respiratory: no respiratory distress, normal breath sounds, chest non-tender. 16:28 CVS: regular pulse rate, regular rhythm, normal S1 and S2, no murmurs, strong peripheral pulses, normal capillary refill. 16:28 Abdomen: soft, non-tender, no organomegaly, normal bowel sounds. 16:28 Back: normal inspection. 16:28 Skin: skin color is normal, warm, dry. 16:28 Extremities: The extremities have a grossly normal appearance, are non-tender, without acute ROM abnormalities, no pedal edema. 16:28 Neuro: oriented x 3, cranial nerves normal as tested, no motor deficits, no sensory deficits. 16:28 Psych: normal mood. Vital Signs: 16:00 BP 168 / 80; Pulse 93; Resp 18; Temp 98.1(O); Pulse Ox 99% on 2 lpm NC; Weight 105.69 dem1 kg / 233.01 lbs; Height 5 ft. 6 in. (167.64 cm); Pain 4/10; 16:12 BP 143 / 65 (auto/); ml6 16:12 Pulse 82 MON; Resp 16; Pulse Ox 99% on 2 lpm NC; ml6 16:27 BP 156 / 74 (auto/); ml6 16:27 Pulse 82 MON; Resp 16; Pulse Ox 99% on 2 lpm NC; ml6 16:42 BP 170 / 72 (auto/); ml6 16:42 Pulse 80 MON; Resp 18; Pulse Ox 99% on 2 lpm NC; ml6 16:57 BP 167 / 77 (auto/); ml6 16:57 Pulse 80 MON; Resp 18; Pulse Ox 98% on 2 lpm NC; ml6 17:12 BP 163 / 75 (auto/); ml6 17:12 Pulse 80 MON; Resp 18; Pulse Ox 99% on 2 lpm NC; Pain 0/10; ml6 17:27 BP 163 / 74 (auto/); ml6 17:27 Pulse 80 MON; Resp 16; Pulse Ox 99% on 2 lpm NC; Pain 0/10; ml6 17:42 BP 166 / 77 (auto/); ml6 17:42 Pulse 82 MON; Resp 18; Pulse Ox 99% on 2 lpm NC; ml6 17:57 BP 174 / 68 (auto/); ml6 17:57 Pulse 92 MON; Resp 16; Pulse Ox 98% on 2 lpm NC; ml6 18:12 BP 170 / 74 (auto/); ml6 18:12 Pulse 86 MON; Resp 18; Pulse Ox 98% on 2 lpm NC; Pain 0/10; ml6 18:27 BP 181 / 78 (auto/); ml6 18:27 Pulse 86 MON; Resp 16; Temp 97.8(O); Pulse Ox 99% on 2 lpm NC; Pain 0/10; ml6 18:42 Pulse 86 MON; Pulse Ox 98% ; mlc 18:42 BP 169 / 72 (auto/); mlc 18:57 Pulse 92 MON; Pulse Ox 99% ; mlc 18:57 BP 182 / 84 (auto/); mlc 19:12 Pulse 92 MON; Pulse Ox 96% ; mlc 19:12 BP 187 / 87 (auto/); mlc 19:27 Pulse 92 MON; Pulse Ox 97% ; mlc 19:27 BP 198 / 81 (auto/); mlc 19:46 BP 195 / 84 (auto/); mlc 19:46 Pulse 90 MON; Pulse Ox 97% ; mlc 19:57 BP 164 / 80 (auto/); mlc 19:57 Pulse 92 MON; Pulse Ox 96% ; mlc 20:12 Pulse 84 MON; Pulse Ox 97% ; mlc 20:12 BP 169 / 74 (auto/); mlc 20:27 Pulse 74 MON; Pulse Ox 97% ; mlc 20:27 BP 150 / 67 (auto/); mlc 20:38 BP 129 / 68 (auto/); mlc 20:38 Pulse 68 MON; Pulse Ox 97% ; mlc 20:42 Pulse 72 MON; Pulse Ox 97% ; mlc 20:42 BP 136 / 64 (auto/); mlc 20:52 Pulse 64 MON; Pulse Ox 97% ; mlc 20:52 BP 124 / 60 (auto/); mlc 20:57 BP 137 / 62 (auto/); mlc 20:57 Pulse 66 MON; Pulse Ox 96% ; mlc 21:09 BP 129 / 61 (auto/); mlc 21:09 Pulse 64 MON; Pulse Ox 96% ; mlc 21:12 BP 138 / 65 (auto/); mlc 21:12 Pulse 64 MON; Pulse Ox 96% ; mlc 16:00 Body Mass Index 37.61 (105.69 kg, 167.64 cm) dem1 MDM: 15:59 ECG WITH READING ER PHYS+CARDIAG ordered. EDMS 16:20 Annual Giving Director/Pulse Ox/q 30 min VS ordered. pc 16:20 IV Saline Lock ordered. pc 16:20 Rhythm Strip to chart ordered. pc 16:21 Basic Metabolic Profile Ordered. EDMS 16:21 CBC with Diff Ordered. EDMS 16:21 Cardiac Injury Profile Ordered. EDMS 16:21 Troponin Ordered. EDMS 16:21 BNP Ordered. EDMS 16:22 Chest, 1 View Ordered. EDMS 16:23 Aspirin Chewable Tablet 324 mg PO once ordered. pc 16:25 A1C Ordered. EDMS 16:28 Differential Diagnosis: reported dyspnea with normal examination; central chest pain pc with cough, history of CAD and refusing stress test. Plan: labs, EKG, CXR, meds. 16:43 Financial registration complete. lg 17:00 DIFFERENTIAL NO CHARGE Ordered. EDMS 17:38 [facility] Payment Agreement was scanned into [employer] and attached to record. gjb 17:38 Basic Metabolic Profile Reviewed. pc 17:38 CBC with Diff Reviewed. pc 17:38 BNP Reviewed. pc 17:38 A1C Reviewed. pc 17:38 Cardiac Injury Profile Reviewed. pc 17:38 Troponin Reviewed. pc 17:38 PLATELET ESTIMATE Reviewed. pc 17:38 Chest, 1 View Reviewed. pc 17:44 CT Chest Angio R/O PE Ordered. EDMS 18:43 Data reviewed: old medical records, vital signs, nurses notes, EKG(s), lab test pc results, all radiology studies and available results. Test interpretation: EKG. 18:44 Test interpretation: LAB - all labs as ordered have been reviewed, interpreted and pc considered in the overall management of the clinical presentation; X-RAY - interpreted by Radiologist and personally reviewed, 1 view chest cardiomegaly, PVH, bibasilar atelectasis interpreted by Radiologist and personally reviewed, Chest CT; No PE, mild CHF. The patient has been re-examined and re-evaluated. There is no appreciated change of the patient's symptoms at this time. Physician consultation: Dr. Reyna Jolly was contacted at 18:46, regarding admission, and will see patient in ED, shortly. Disposition: The historical points, examination findings, and any diagnostic results supporting the provided diagnosis, were discussed with the patient or legal guardian. The need for further work-up and/or treatment in the hospital was explained. 18:45 PHYSICAL THERAPY EVAL & TREAT ordered. EDMS 18:46 Admission / Observation Status ordered. EDMS 18:46 ECHOCARD,DOPPLER/COLOR FLOW ordered. EDMS 18:47 THYROID STIMULATING HORMONE Ordered. EDMS 18:47 IRON (FE) Ordered. EDMS 18:47 TOTAL IRON BINDING CAPACIT Ordered. EDMS 18:47 FERRITIN Ordered. EDMS 18:47 RETICULOCYTE COUNT Ordered. EDMS 18:47 PATHOLOGIST REVIEW COMPREHENSI Ordered. EDMS 18:47 Furosemide 80 mg IVP once ordered. pc 18:49 BED REQUEST+ADM ordered. EDMS 18:50 PACKED CELLS Ordered. EDMS 18:50 TYPE & SCREEN Ordered. EDMS 18:50 ELECTROCARDIOGRAM ADULT ordered. EDMS 19:31 CARDIAC MARKER PANEL Ordered. EDMS 19:31 CARDIAC MARKER PANEL Ordered. EDMS 19:31 CARDIAC MARKER PANEL Ordered. EDMS 19:33 COMPLETE BLOOD COUNT Ordered. EDMS 19:33 BASIC METABOLIC PROFILE Ordered. EDMS 19:33 CARDIAC RISK PROFILE Ordered. EDMS 19:33 THYROID STIMULATING HORMONE Ordered. EDMS 19:34 MAGNESIUM LEVEL Ordered. EDMS 19:34 MAGNESIUM LEVEL Ordered. EDMS 19:34 BASIC METABOLIC PROFILE Ordered. EDMS 19:35 morphine 2 mg IVP once ordered. mlc 19:35 Spironolactone 25 mg PO once ordered. mlc 19:35 Metoprolol (Tartrate) 25 mg PO once ordered. mlc 19:35 Isosorbide Mononitrate 30 mg PO once ordered. mlc 20:37 ELECTROCARDIOGRAM ADULT ordered. EDMS 20:39 ELECTROCARDIOGRAM ADULT ordered. EDMS 20:45 CONSISTENT CARBOHYDRATES ordered. EDMS EC:43 Rate is 81 beats/min. Rhythm is regular, Normal Sinus Rhythm with Occasional PVCs. QRS pc Hector is Normal. SC interval is normal. QRS interval is normal. QT interval is normal. No Q waves. T waves are Normal. No ST changes noted. Clinical impression: Normal Sinus Rhythm and PVCs. Administered Medications: 16:36 Not Given (patient states given 4 baby asprin by emss): Aspirin Chewable Tablet 324 mg ml6 PO once 18:53 Drug: Furosemide 80 mg [furosemide 10 mg/mL injection solution (8 mL)] Route: IVP; ml6 Site: left antecubital; 19:51 Drug: morphine 2 mg [morphine 2 mg/mL intravenous cartridge (1 mL)] Route: IVP; Site: mlc left antecubital; 19:51 Drug: Metoprolol 25 mg [metoprolol tartrate 25 mg tablet (1 tabs)] Route: PO; mlc 20:16 Drug: Spironolactone 25 mg [spironolactone 25 mg tablet (1 tabs)] Route: PO; mlc 20:16 Drug: Isosorbide Mononitrate 30 mg Route: PO; [facility] Signatures: Dispatcher [employer] EDMS JuanR amon Resendiz MD MD pc Newman, Jill New, RN RN jan Ganter, LoriLee, Selwyn Worley lg, RN RN Bolivar Briceno RN RN jmb Booth, Mandy, RN RN mlc Beck, Gabriela gjb The chart was reviewed and I authenticate all verbal orders and agree with the evaluation and treatment provided.Corrections: (The following items were deleted from the chart) 16:28 16:16 PMHx: back Pain Chronic; ml6 pc 17:14 16:16 Allergies: Amaryl; ml6 ml6 17:14 16:16 Allergies: Codeine Sulfate; ml6 ml6 20:45 18:46 CONSISTENT CARBOHYDRATES ordered. EDMS EDMS Attachments: 17:38 [facility] Payment Agreement jimmie Chart [facility]
--- NOTE | 2016-06-06 22:30 | EDDOCDS ---
Physician Documentation [facility] Name: Aubree Deleon Age: 76 yrs Sex: Female : 1940 Arrival Date: 06/04/2016 Time: 15:44 Bed 12 Private MD: Disposition: 06/04 18:44 Critical Care: Critical care not applicable. pc Disposition: 06/04/16 18:47 Hospitalization ordered by Reyna Jolly for Inpatient Admission. Preliminary diagnosis are Dyspnea, Acute systolic (congestive) heart failure, Type 2 diabetes mellitus. - Bed requested for M ICU. - Status is Inpatient Admission. jmb - Condition is Stable. - Problem is new. - Symptoms are unchanged. HPI: 16:24 This 76 yrs old Female presents to ER via Ambulance with complaints of Chest pc Pain. 16:24 The history is obtained from the patient. 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 She had chest pain, centrally, while coughing. EMS was called and they gave NTG x 6 without relief. However, her only concern during my interview is to get a CT of her chest done today, instead of having to do it as an out-patient tomorrow as previously scheduled by Dr. Coley. She has seen Cardiology and Pulmonology in the past week for the ongoing cough and SOB. She has had PFTs done and has a scheduled CT as above. Her Visual Merchandising Assistant offered a stress test that she has declined. Historical: - Allergies: Mvmcgvd-Vmv-Eqd Reductase Inhibitors; Amaryl (shaking); Codeine Sulfate (Upset stomach); Strawberries (Rash); Trazodone (confusion); GABAPENTIN (confusion); Lyrica (confusion); Augmentin (Vomit); Byetta (makes her feel weird); - Home Meds: 1. metoprolol succinate 25 mg Tb24 1 tab once daily (Last dose: 06/04/2016 08:00) 2. lorazepam 1 mg Oral tab qhs prn (Last dose: 06/03/2016 20:00) 3. bupropion HCl 450 mg Oral Tb24 once daily (Last dose: 06/04/2016 08:00) 4. NitroQuick 0.4 mg SL subl 1 tab every 5 minutes (Last dose: 06/04/2016 15:50) 5. spironolactone 25 mg Oral tab once daily (Last dose: 06/04/2016 08:00) 6. Plavix 75 mg Oral tab once daily (Last dose: 06/04/2016 08:00) 7. amlodipine 10 mg Oral tab 1 tab once daily (Last dose: 06/04/2016 08:00) 8. carvedilol 3.125 mg oral tab 2 times per day (Last dose: 06/04/2016 08:00) 9. furosemide 40 mg Oral tab 1 tab once daily (Last dose: 06/04/2016 08:00) 10. aspirin 81 mg Oral tab 1 tab once daily (Last dose: 06/04/2016 08:00) 11. aspirin 81 mg Oral tab 1 tab once daily (Last dose: 06/04/2016 08:00) 12. omeprazole 40 mg Oral cpDR 1 cap once daily (Last dose: 06/04/2016 08:00) 13. Lantus 100 unit/mL Sub-Q crtg 60 unit nightly (Last dose: 06/03/2016 20:00) 14. Novolog 100 unit/mL Sub-Q soln sliding scale (Last dose: 06/04/2016 12:00) - PMHx: Depression; Diabetes - IDDM: controlled; Hypercholesterolemia; Hypertension; LA; Chronic Low Back Pain; narcotic withdrawl (overdose); Breast CA; Iron Deficiency Anemia - not treated; - PSHx: Hysterectomy; Cholecystectomy; Coronary Stents; Carpal Tunnel Repair- Bilateral; knee replacement bilaterally; Lumpectomy- Right; - The history from nurses notes was reviewed: and I agree with what is documented. - Social history: Smoking status: Patient states was never smoker of tobacco. No barriers to communication noted, Speaks appropriately for age. - : The pt / caregiver states he / she is not on anticoagulants. The pt / caregiver states he / she is on anticoagulants: Plavix. Home medication list is obtained from the patient. - Hospitalizations: : No recent hospitalization is reported. - Exposure Risk Screening:: None identified. - Immunization history:: All immunizations up-to-date. - Family history: Not pertinent. - Social history:: the patient is a non-smoker, the patient does not drink alcohol. ROS: 16:28 MS/Skin/Lymph: chronic back pain. pc 16:28 All systems are negative except as listed. Exam: 16:28 General Appearance: no acute distress, alert. pc 16:28 EENT: normal eye inspection, ears, nose and throat normal, pharynx normal, mucous membranes moist 16:28 Neck: The exam reveals no acute abnormalities. ROM is normal and painless. No nuchal rigidity is noted.. 16:28 Respiratory: no respiratory distress, normal breath sounds, chest non-tender. 16:28 CVS: regular pulse rate, regular rhythm, normal S1 and S2, no murmurs, strong peripheral pulses, normal capillary refill. 16:28 Abdomen: soft, non-tender, no organomegaly, normal bowel sounds. 16:28 Back: normal inspection. 16:28 Skin: skin color is normal, warm, dry. 16:28 Extremities: The extremities have a grossly normal appearance, are non-tender, without acute ROM abnormalities, no pedal edema. 16:28 Neuro: oriented x 3, cranial nerves normal as tested, no motor deficits, no sensory deficits. 16:28 Psych: normal mood. Vital Signs: 16:00 BP 168 / 80; Pulse 93; Resp 18; Temp 98.1(O); Pulse Ox 99% on 2 lpm NC; Weight 105.69 dem1 kg / 233.01 lbs; Height 5 ft. 6 in. (167.64 cm); Pain 4/10; 16:12 BP 143 / 65 (auto/); ml6 16:12 Pulse 82 MON; Resp 16; Pulse Ox 99% on 2 lpm NC; ml6 16:27 BP 156 / 74 (auto/); ml6 16:27 Pulse 82 MON; Resp 16; Pulse Ox 99% on 2 lpm NC; ml6 16:42 BP 170 / 72 (auto/); ml6 16:42 Pulse 80 MON; Resp 18; Pulse Ox 99% on 2 lpm NC; ml6 16:57 BP 167 / 77 (auto/); ml6 16:57 Pulse 80 MON; Resp 18; Pulse Ox 98% on 2 lpm NC; ml6 17:12 BP 163 / 75 (auto/); ml6 17:12 Pulse 80 MON; Resp 18; Pulse Ox 99% on 2 lpm NC; Pain 0/10; ml6 17:27 BP 163 / 74 (auto/); ml6 17:27 Pulse 80 MON; Resp 16; Pulse Ox 99% on 2 lpm NC; Pain 0/10; ml6 17:42 BP 166 / 77 (auto/); ml6 17:42 Pulse 82 MON; Resp 18; Pulse Ox 99% on 2 lpm NC; ml6 17:57 BP 174 / 68 (auto/); ml6 17:57 Pulse 92 MON; Resp 16; Pulse Ox 98% on 2 lpm NC; ml6 18:12 BP 170 / 74 (auto/); ml6 18:12 Pulse 86 MON; Resp 18; Pulse Ox 98% on 2 lpm NC; Pain 0/10; ml6 18:27 BP 181 / 78 (auto/); ml6 18:27 Pulse 86 MON; Resp 16; Temp 97.8(O); Pulse Ox 99% on 2 lpm NC; Pain 0/10; ml6 18:42 Pulse 86 MON; Pulse Ox 98% ; mlc 18:42 BP 169 / 72 (auto/); mlc 18:57 Pulse 92 MON; Pulse Ox 99% ; mlc 18:57 BP 182 / 84 (auto/); mlc 19:12 Pulse 92 MON; Pulse Ox 96% ; mlc 19:12 BP 187 / 87 (auto/); mlc 19:27 Pulse 92 MON; Pulse Ox 97% ; mlc 19:27 BP 198 / 81 (auto/); mlc 19:46 BP 195 / 84 (auto/); mlc 19:46 Pulse 90 MON; Pulse Ox 97% ; mlc 19:57 BP 164 / 80 (auto/); mlc 19:57 Pulse 92 MON; Pulse Ox 96% ; mlc 20:12 Pulse 84 MON; Pulse Ox 97% ; mlc 20:12 BP 169 / 74 (auto/); mlc 20:27 Pulse 74 MON; Pulse Ox 97% ; mlc 20:27 BP 150 / 67 (auto/); mlc 20:38 BP 129 / 68 (auto/); mlc 20:38 Pulse 68 MON; Pulse Ox 97% ; mlc 20:42 Pulse 72 MON; Pulse Ox 97% ; mlc 20:42 BP 136 / 64 (auto/); mlc 20:52 Pulse 64 MON; Pulse Ox 97% ; mlc 20:52 BP 124 / 60 (auto/); mlc 20:57 BP 137 / 62 (auto/); mlc 20:57 Pulse 66 MON; Pulse Ox 96% ; mlc 21:09 BP 129 / 61 (auto/); mlc 21:09 Pulse 64 MON; Pulse Ox 96% ; mlc 21:12 BP 138 / 65 (auto/); mlc 21:12 Pulse 64 MON; Pulse Ox 96% ; mlc 16:00 Body Mass Index 37.61 (105.69 kg, 167.64 cm) dem1 MDM: 15:59 ECG WITH READING ER PHYS+CARDIAG ordered. EDMS 16:20 Bow Stapler/Pulse Ox/q 30 min VS ordered. pc 16:20 IV Saline Lock ordered. pc 16:20 Rhythm Strip to chart ordered. pc 16:21 Basic Metabolic Profile Ordered. EDMS 16:21 CBC with Diff Ordered. EDMS 16:21 Cardiac Injury Profile Ordered. EDMS 16:21 Troponin Ordered. EDMS 16:21 BNP Ordered. EDMS 16:22 Chest, 1 View Ordered. EDMS 16:23 Aspirin Chewable Tablet 324 mg PO once ordered. pc 16:25 A1C Ordered. EDMS 16:28 Differential Diagnosis: reported dyspnea with normal examination; central chest pain pc with cough, history of CAD and refusing stress test. Plan: labs, EKG, CXR, meds. 16:43 Financial registration complete. lg 17:00 DIFFERENTIAL NO CHARGE Ordered. EDMS 17:38 [facility] Payment Agreement was scanned into [facility] and attached to record. gjb 17:38 Basic Metabolic Profile Reviewed. pc 17:38 CBC with Diff Reviewed. pc 17:38 BNP Reviewed. pc 17:38 A1C Reviewed. pc 17:38 Cardiac Injury Profile Reviewed. pc 17:38 Troponin Reviewed. pc 17:38 PLATELET ESTIMATE Reviewed. pc 17:38 Chest, 1 View Reviewed. pc 17:44 CT Chest Angio R/O PE Ordered. EDMS 18:43 Data reviewed: old medical records, vital signs, nurses notes, EKG(s), lab test pc results, all radiology studies and available results. Test interpretation: EKG. 18:44 Test interpretation: LAB - all labs as ordered have been reviewed, interpreted and pc considered in the overall management of the clinical presentation; X-RAY - interpreted by Radiologist and personally reviewed, 1 view chest cardiomegaly, PVH, bibasilar atelectasis interpreted by Radiologist and personally reviewed, Chest CT; No PE, mild CHF. The patient has been re-examined and re-evaluated. There is no appreciated change of the patient's symptoms at this time. Physician consultation: Dr. Reyna Jolly was contacted at 18:46, regarding admission, and will see patient in ED, shortly. Disposition: The historical points, examination findings, and any diagnostic results supporting the provided diagnosis, were discussed with the patient or legal guardian. The need for further work-up and/or treatment in the hospital was explained. 18:45 PHYSICAL THERAPY EVAL & TREAT ordered. EDMS 18:46 Admission / Observation Status ordered. EDMS 18:46 ECHOCARD,DOPPLER/COLOR FLOW ordered. EDMS 18:47 THYROID STIMULATING HORMONE Ordered. EDMS 18:47 IRON (FE) Ordered. EDMS 18:47 TOTAL IRON BINDING CAPACIT Ordered. EDMS 18:47 FERRITIN Ordered. EDMS 18:47 RETICULOCYTE COUNT Ordered. EDMS 18:47 PATHOLOGIST REVIEW COMPREHENSI Ordered. EDMS 18:47 Furosemide 80 mg IVP once ordered. pc 18:49 BED REQUEST+ADM ordered. EDMS 18:50 PACKED CELLS Ordered. EDMS 18:50 TYPE & SCREEN Ordered. EDMS 18:50 ELECTROCARDIOGRAM ADULT ordered. EDMS 19:31 CARDIAC MARKER PANEL Ordered. EDMS 19:31 CARDIAC MARKER PANEL Ordered. EDMS 19:31 CARDIAC MARKER PANEL Ordered. EDMS 19:33 COMPLETE BLOOD COUNT Ordered. EDMS 19:33 BASIC METABOLIC PROFILE Ordered. EDMS 19:33 CARDIAC RISK PROFILE Ordered. EDMS 19:33 THYROID STIMULATING HORMONE Ordered. EDMS 19:34 MAGNESIUM LEVEL Ordered. EDMS 19:34 MAGNESIUM LEVEL Ordered. EDMS 19:34 BASIC METABOLIC PROFILE Ordered. EDMS 19:35 morphine 2 mg IVP once ordered. mlc 19:35 Spironolactone 25 mg PO once ordered. mlc 19:35 Metoprolol (Tartrate) 25 mg PO once ordered. mlc 19:35 Isosorbide Mononitrate 30 mg PO once ordered. mlc 20:37 ELECTROCARDIOGRAM ADULT ordered. EDMS 20:39 ELECTROCARDIOGRAM ADULT ordered. EDMS 20:45 CONSISTENT CARBOHYDRATES ordered. EDMS EC:43 Rate is 81 beats/min. Rhythm is regular, Normal Sinus Rhythm with Occasional PVCs. QRS pc [place] is Normal. NM interval is normal. QRS interval is normal. QT interval is normal. No Q waves. T waves are Normal. No ST changes noted. Clinical impression: Normal Sinus Rhythm and PVCs. Administered Medications: 16:36 Not Given (patient states given 4 baby asprin by emss): Aspirin Chewable Tablet 324 mg ml6 PO once 18:53 Drug: Furosemide 80 mg [furosemide 10 mg/mL injection solution (8 mL)] Route: IVP; ml6 Site: left antecubital; 19:51 Drug: morphine 2 mg [morphine 2 mg/mL intravenous cartridge (1 mL)] Route: IVP; Site: mlc left antecubital; 19:51 Drug: Metoprolol 25 mg [metoprolol tartrate 25 mg tablet (1 tabs)] Route: PO; mlc 20:16 Drug: Spironolactone 25 mg [spironolactone 25 mg tablet (1 tabs)] Route: PO; mlc 20:16 Drug: Isosorbide Mononitrate 30 mg Route: PO; [facility] [place] Signatures: Dispatcher [employer] EDMS Juan Ramon Resendiz MD MD pc Newman, Jill New, RN RN jan Ganter, LoriLee, Selwyn Worley lg, RN RN Bolivar Briceno RN RN jmb Booth, Mandy, RN RN mlc Beck, Gabriela gjb The chart was reviewed and I authenticate all verbal orders and agree with the evaluation and treatment provided.Corrections: (The following items were deleted from the chart) 16:28 16:16 PMHx: back Pain Chronic; ml6 pc 17:14 16:16 Allergies: Amaryl; ml6 ml6 17:14 16:16 Allergies: Codeine Sulfate; ml6 ml6 20:45 18:46 CONSISTENT CARBOHYDRATES ordered. EDMS EDMS Attachments: 17:38 [facility] Payment Agreement jimmie Chart [facility]
--- NOTE | 2016-06-06 22:30 | EDDOCDS ---
Nurse's Notes [facility] Name: Aubree Deleon Age: 76 yrs Sex: Female : 1940 Arrival Date: 06/04/2016 Time: 15:44 Bed 12 Private MD: Diagnosis: Dyspnea;Acute systolic (congestive) heart failure;Type 2 diabetes mellitus Presentation: 06/04 16:00 Presenting complaint: EMS states: states a cough and chest pressure since June of ml6 2015, patient states increased coughing past 3 days and increased chest pain today. Patient given 6 NTG SL by EMS with relief of chest pain. Aspirin was not taken prior to arrival. Adult Sepsis Screening: The patient does not have new or worsening altered mentation. Patient's respiratory rate is less than 22. Systolic blood pressure is greater than 100. Patient has a qSOFA score of 0- Negative Sepsis Screen. Suicide/Homicide risk assessment- the patient denies having any suicidal and/or homicidal ideations and does not present with any other emotional, behavioral or mental health complaints. Status: Patient is not a medicine and health service manager or dependent. Transition of care: patient was not received from another setting of care. 16:00 Acuity: JOSÉ Level 2 ml6 16:00 Method Of Arrival: Ambulance ml6 Triage Assessment: 16:00 General: Appears in no apparent distress, comfortable, Behavior is appropriate for age, ml6 cooperative. Pain: Denies pain. The patient is triaged at the bedside. See Assessment in Nurses Notes section of ED record. Neurological: No deficits noted. Level of Consciousness is awake, alert, Oriented to person, place, time, Roundhouse Supervisor are equal bilaterally. Cardiovascular: Capillary refill < 3 seconds is brisk in bilateral fingers toes Heart tones S1 S2 present Edema is absent. Pulses are all present. Rhythm is regular Chest pain is denied is described as mild, quality is pressure, radiates Does not radiate. episodes are continuous began june. Respiratory: No deficits noted. Airway is patent Respiratory effort is even, unlabored, Respiratory pattern is regular, symmetrical, Breath sounds are clear bilaterally. Respiratory: Reports shortness of breath on exertion cough that is non-productive, dry, hacking, the patient has moderate shortness of breath. GI: No deficits noted. Abdomen is obese, Bowel sounds present X 4 quads. Historical: - Allergies: Rdvkfkh-Dfe-Tcr Reductase Inhibitors; Amaryl (shaking); Codeine Sulfate (Upset stomach); Strawberries (Rash); Trazodone (confusion); GABAPENTIN (confusion); Lyrica (confusion); Augmentin (Vomit); Byetta (makes her feel weird); - Home Meds: 1. metoprolol succinate 25 mg Tb24 1 tab once daily (Last dose: 06/04/2016 08:00) 2. lorazepam 1 mg Oral tab qhs prn (Last dose: 06/03/2016 20:00) 3. bupropion HCl 450 mg Oral Tb24 once daily (Last dose: 06/04/2016 08:00) 4. NitroQuick 0.4 mg SL subl 1 tab every 5 minutes (Last dose: 06/04/2016 15:50) 5. spironolactone 25 mg Oral tab once daily (Last dose: 06/04/2016 08:00) 6. Plavix 75 mg Oral tab once daily (Last dose: 06/04/2016 08:00) 7. amlodipine 10 mg Oral tab 1 tab once daily (Last dose: 06/04/2016 08:00) 8. carvedilol 3.125 mg oral tab 2 times per day (Last dose: 06/04/2016 08:00) 9. furosemide 40 mg Oral tab 1 tab once daily (Last dose: 06/04/2016 08:00) 10. aspirin 81 mg Oral tab 1 tab once daily (Last dose: 06/04/2016 08:00) 11. aspirin 81 mg Oral tab 1 tab once daily (Last dose: 06/04/2016 08:00) 12. omeprazole 40 mg Oral cpDR 1 cap once daily (Last dose: 06/04/2016 08:00) 13. Lantus 100 unit/mL Sub-Q crtg 60 unit nightly (Last dose: 06/03/2016 20:00) 14. Novolog 100 unit/mL Sub-Q soln sliding scale (Last dose: 06/04/2016 12:00) - PMHx: Depression; Diabetes - IDDM: controlled; Hypercholesterolemia; Hypertension; [place]; Chronic Low Back Pain; narcotic withdrawl (overdose); Breast CA; Iron Deficiency Anemia - not treated; - PSHx: Hysterectomy; Cholecystectomy; Coronary Stents; Carpal Tunnel Repair- Bilateral; knee replacement bilaterally; Lumpectomy- Right; - The history from nurses notes was reviewed: and I agree with what is documented. - Social history: Smoking status: Patient states was never smoker of tobacco. No barriers to communication noted, Speaks appropriately for age. - : The pt / caregiver states he / she is not on anticoagulants. The pt / caregiver states he / she is on anticoagulants: Plavix. Home medication list is obtained from the patient. - Hospitalizations: : No recent hospitalization is reported. - Exposure Risk Screening:: None identified. - Immunization history:: All immunizations up-to-date. - Family history: Not pertinent. - Social history:: the patient is a non-smoker, the patient does not drink alcohol. Screenin:52 Screening information is obtained from the patient. Fall risk: No risks identified. ml6 Assistance ADL's: requires no assistance with activities of daily living. Abuse/DV Screen: The patient / caregiver reports he/she is: not in a situation that causes fear, pain or injury. Nutritional screening: No deficits noted. Advance Directives: Currently, there is no health care proxy. home support is adequate. Assessment: 16:00 General: see triage assessment. Cardiovascular: Capillary refill < 3 seconds is brisk ml6 in bilateral fingers toes Heart tones S1 S2 present. 16:53 Reassessment: Patient appears in no apparent distress at this time. Patient denies pain ml6 at this time. Patient states feeling better. Patient states symptoms have improved. Cardiovascular: Capillary refill < 3 seconds is brisk in bilateral fingers toes Heart tones S1 S2 present Edema is absent. Pulses are all present. Rhythm is regular Chest pain is denied. 18:01 General: Appears in no apparent distress, comfortable. Respiratory: Airway is patent is ml6 compromised Respiratory effort is even, Respiratory pattern is regular, symmetrical, Breath sounds are clear bilaterally. Reports cough that is non-productive, dry, the patient has mild shortness of breath. GI: No deficits noted. 19:51 General: Appears in no apparent distress, comfortable, Behavior is cooperative. mlc General:. Pain: Location: chest Pain currently is 4 out of 10 on a pain scale. Quality of pain is described as pressure. Neurological: Level of Consciousness is awake, alert, Oriented to person, place, time. Cardiovascular: Heart tones S1 S2 present. Respiratory: Airway is patent Respiratory effort is even, unlabored, Respiratory pattern is regular. Respiratory: Reports cough that is non-productive, persistent. Derm: Skin is pale. 20:18 Reassessment: Patient appears in no apparent distress at this time. no changes since mlc prior. pt sitting at bedside. 21:22 General: Appears in no apparent distress, comfortable, Behavior is cooperative, Blood mlc transfusing per order. Pain: Pain currently is 3 out of 10 on a pain scale. Neurological: Level of Consciousness is awake, alert, obeys commands, Oriented to person, place, time. Respiratory: Breath sounds are clear bilaterally. Derm: Skin is pale. Vital Signs: 16:00 BP 168 / 80; Pulse 93; Resp 18; Temp 98.1(O); Pulse Ox 99% on 2 lpm NC; Weight 105.69 dem1 kg; Height 5 ft. 6 in. (167.64 cm); Pain 4/10; 16:12 BP 143 / 65 (auto/); ml6 16:12 Pulse 82 MON; Resp 16; Pulse Ox 99% on 2 lpm NC; ml6 16:27 BP 156 / 74 (auto/); ml6 16:27 Pulse 82 MON; Resp 16; Pulse Ox 99% on 2 lpm NC; ml6 16:42 BP 170 / 72 (auto/); ml6 16:42 Pulse 80 MON; Resp 18; Pulse Ox 99% on 2 lpm NC; ml6 16:57 BP 167 / 77 (auto/); ml6 16:57 Pulse 80 MON; Resp 18; Pulse Ox 98% on 2 lpm NC; ml6 17:12 BP 163 / 75 (auto/); ml6 17:12 Pulse 80 MON; Resp 18; Pulse Ox 99% on 2 lpm NC; Pain 0/10; ml6 17:27 BP 163 / 74 (auto/); ml6 17:27 Pulse 80 MON; Resp 16; Pulse Ox 99% on 2 lpm NC; Pain 0/10; ml6 17:42 BP 166 / 77 (auto/); ml6 17:42 Pulse 82 MON; Resp 18; Pulse Ox 99% on 2 lpm NC; ml6 17:57 BP 174 / 68 (auto/); ml6 17:57 Pulse 92 MON; Resp 16; Pulse Ox 98% on 2 lpm NC; ml6 18:12 BP 170 / 74 (auto/); ml6 18:12 Pulse 86 MON; Resp 18; Pulse Ox 98% on 2 lpm NC; Pain 0/10; ml6 18:27 BP 181 / 78 (auto/); ml6 18:27 Pulse 86 MON; Resp 16; Temp 97.8(O); Pulse Ox 99% on 2 lpm NC; Pain 0/10; ml6 18:42 Pulse 86 MON; Pulse Ox 98% ; mlc 18:42 BP 169 / 72 (auto/); mlc 18:57 Pulse 92 MON; Pulse Ox 99% ; mlc 18:57 BP 182 / 84 (auto/); mlc 19:12 Pulse 92 MON; Pulse Ox 96% ; mlc 19:12 BP 187 / 87 (auto/); mlc 19:27 Pulse 92 MON; Pulse Ox 97% ; mlc 19:27 BP 198 / 81 (auto/); mlc 19:46 BP 195 / 84 (auto/); mlc 19:46 Pulse 90 MON; Pulse Ox 97% ; mlc 19:57 BP 164 / 80 (auto/); mlc 19:57 Pulse 92 MON; Pulse Ox 96% ; mlc 20:12 Pulse 84 MON; Pulse Ox 97% ; mlc 20:12 BP 169 / 74 (auto/); mlc 20:27 Pulse 74 MON; Pulse Ox 97% ; mlc 20:27 BP 150 / 67 (auto/); mlc 20:38 BP 129 / 68 (auto/); mlc 20:38 Pulse 68 MON; Pulse Ox 97% ; mlc 20:42 Pulse 72 MON; Pulse Ox 97% ; mlc 20:42 BP 136 / 64 (auto/); mlc 20:52 Pulse 64 MON; Pulse Ox 97% ; mlc 20:52 BP 124 / 60 (auto/); mlc 20:57 BP 137 / 62 (auto/); mlc 20:57 Pulse 66 MON; Pulse Ox 96% ; mlc 21:09 BP 129 / 61 (auto/); mlc 21:09 Pulse 64 MON; Pulse Ox 96% ; mlc 21:12 BP 138 / 65 (auto/); mlc 21:12 Pulse 64 MON; Pulse Ox 96% ; mlc 16:00 Body Mass Index 37.61 (105.69 kg, 167.64 cm) [facility] Vitals: 16:00 Log In Time N/A - ambulance arrival. [facility] ED Course: 15:45 Patient visited by Janice Rowe, Drilling Manager. deg 15:45 Patient moved to Waiting deg 15:46 Patient moved to 12 deg 15:52 Juan Ramon Resendiz MD is Attending Physician. pc 16:00 Patient visited by Nba Mendiola. dem1 16:05 Triage Initiated ml6 16:09 Accompanied by Family Member, Patient has correct armband on for positive ct3 identification. Placed in gown. Bed in low position. Side rails up X2. surveillance system monitor on. Pulse ox on. NIBP on. 16:09 EKG done. (by ED staff). Reviewed by Juan Ramon Resendiz MD. ct3 16:11 Patient visited by Cindy Young PCA. ct3 16:19 Patient visited by Juan Ramon Resendiz MD. pc 16:52 Patient visited by Selwyn Jimenez, RN. ml6 16:52 Maintain field IV. Dressing intact. Good blood return noted. Site clean & dry. Gauge & ml6 site: 18g left AC. No procedures done that require assistance. 17:17 Patient visited by Selwyn Jimenez, LIBRA. ml6 17:33 Chest, 1 View Returned. EDMS 17:38 [facility] Payment Agreement was scanned into [employer] and attached to record. gjb 17:38 DIFFERENTIAL NO CHARGE Sent. pc 17:45 Patient name changed from Aubree\S\\S\Kormondy\S\ to Aubree\S\ \S\Kormondy. EDMS 18:07 Patient visited by Cindy Young PCA. ct3 18:40 Patient visited by Selwyn Jimenez, LIBRA. ml6 18:47 Reyna Jolly is Hospitalizing Provider. pc 19:00 Christine Ho,LIBRA is Primary Nurse. mlc 19:03 Patient visited by Pedro Sutton PCA. kb5 19:12 CT Chest Angio R/O PE Returned. EDMS 19:25 Patient visited by Angela Wagner PCA. cln 19:46 The patient / caregiver is instructed regarding the plan of care and ED course. mlc 20:08 Patient visited by Christine Ho,LIBRA. mlc 20:19 Patient visited by Christine Ho,LIBRA. mlc 20:55 Blood products: PRBCs X 1 unit given. See transfusion record. mlc Administered Medications: 16:36 Not Given (patient states given 4 baby asprin by emss): Aspirin Chewable Tablet 324 mg ml6 PO once 18:53 Drug: Furosemide 80 mg [furosemide 10 mg/mL injection solution (8 mL)] Route: IVP; ml6 Site: left antecubital; 19:51 Drug: morphine 2 mg [morphine 2 mg/mL intravenous cartridge (1 mL)] Route: IVP; Site: mlc left antecubital; 19:51 Drug: Metoprolol 25 mg [metoprolol tartrate 25 mg tablet (1 tabs)] Route: PO; mlc 20:16 Drug: Spironolactone 25 mg [spironolactone 25 mg tablet (1 tabs)] Route: PO; mlc 20:16 Drug: Isosorbide Mononitrate 30 mg Route: PO; mlc Intake: 20:18 PO: 300.00ml (Milk); Total: 300.00ml. mlc Output: 19:25 Urine: 450.00ml (Voided); Total: 450.00ml. cln 20:18 Urine: 500.00ml (Voided); Total: 950.00ml. mlc 20:44 Urine: 450.00ml (Voided); Total: 1400.00ml. mlc Order Results: Lab Order: Basic Metabolic Profile; SPEC'M 06/04/16 16:32 Test: GLUCOSE, FASTING; Value: 107; Range: 83-110; Units: MG/DL; Status: F Test: BLOOD UREA NITROGEN; Value: 18; Range: 7-18; Units: MG/DL; Status: F Test: CREATININE FOR GFR; Value: 1.35; Range: 0.55-1.02; Abnormal: Above high normal; Units: MG/DL; Status: F Test: GLOMERULAR FILTRATION RATE; Value: 40.8; Range: >39; Status: F Test: SODIUM LEVEL; Value: 143; Range: 136-145; Units: MEQ/L; Status: F Test: POTASSIUM SERUM; Value: 4.1; Range: 3.5-5.1; Units: MEQ/L; Status: F Test: CHLORIDE LEVEL; Value: 108; Range: 98-107; Abnormal: Above high normal; Units: MEQ/L; Status: F Test: CARBON DIOXIDE LEVEL; Value: 27; Range: 21-32; Units: MEQ/L; Status: F Test: ANION GAP; Value: 8; Range: 8-16; Units: MEQ/L; Status: F Test: CALCIUM LEVEL; Value: 8.6; Range: 8.8-10.2; Abnormal: Below low normal; Units: MG/DL; Status: F Test Note: ; Units are mL/min/1.73 m2 Chronic Kidney Disease Staging per NKF: Stage I & II GFR >=60 Normal to Mildly Decreased Stage III GFR 30-59 Moderately Decreased Stage IV GFR 15-29 Severely Decreased Stage V GFR <15 Very Little GFR Left ESRD GFR <15 on PRESIDENT [employer]LEBRITY ACQUISTION Lab Order: CBC with Diff; SPEC'M 06/04/16 16:32 Test: WHITE BLOOD COUNT; Value: 8.9; Range: 4.0-10.0; Units: K/mm3; Status: F Test: RED BLOOD COUNT; Value: 3.15; Range: 4.00-5.40; Abnormal: Below low normal; Units: M/mm3; Status: F Test: HEMOGLOBIN; Value: 7.4; Range: 12.0-16.0; Abnormal: Below low normal; Units: g/dl; Status: F Test: HEMATOCRIT; Value: 24.9; Range: 36.0-47.0; Abnormal: Below low normal; Units: %; Status: F Test: MEAN CORPUSCULAR VOLUME; Value: 79.1; Range: 80.0-96.0; Abnormal: Below low normal; Units: fl; Status: F Test: MEAN CORPUSCULAR HEMOGLOBIN; Value: 23.6; Range: 27.0-33.0; Abnormal: Below low normal; Units: pg; Status: F Test: MEAN CORPUSCULAR HGB CONC; Value: 29.8; Range: 32.0-36.5; Abnormal: Below low normal; Units: g/dl; Status: F Test: RED CELL DISTRIBUTION WIDTH; Value: 15.0; Range: 11.5-14.5; Abnormal: Above high normal; Units: %; Status: F Test: PLATELET COUNT, AUTOMATED; Value: 390; Range: 150-450; Units: k/mm3; Status: F Test: NEUTROPHILS; Value: 78; Range: 35-75; Abnormal: Above high normal; Units: %; Status: F Test: LYMPHOCYTES; Value: 19; Range: 16-52; Units: %; Status: F Test: MONOCYTES; Value: 1; Range: 0-8; Units: %; Status: F Test: EOSINOPHILS; Value: 1; Range: 0-5; Units: %; Status: F Test: BASOPHILS; Value: 1; Range: 0-4; Units: %; Status: F Test: HYPOCHROMASIA; Value: 2+; Status: F Test: ANISOCYTOSIS; Value: 1+; Status: F Test: MICROCYTOSIS; Value: 1+; Status: F Lab Order: Cardiac Injury Profile; [facility] 06/04/16 16:32 Test: CPK CREATINE PHOSPHOKINASE; Value: 80; Range: 26-192; Units: U/L; Status: F Test: CK-MB VALUE MASS; Value: 2.3; Range: 0.0-3.6; Units: NG/ML; Status: F Test: MB/CK RELATIVE INDEX; Value: 2.87; Range: < OR =4; Status: F Test Note: ; DIAGNOSIS CRITERIA MMB ng/ml Relative Index (RI) NON-AMI < or = 5 N/A CALDERON ZONE > 5 < or = 4 AMI > 5 > 4 Lab Order: Troponin; [facility] 06/04/16 16:32 Test: TROPONIN I; Value: 0.04; Range: < 0.10; Units: NG/ML; Status: F Test Note: ; Troponin I Reference Interval for Twice LOCI: 99th Percentile= 0.00-0.045 ng/ml Risk Stratification: <= 0.10 ng/ml Decreased Risk for Adverse Clinical Events. 0.10-1.50 ng/ml Increased Risk for Adverse Clinical Events. Evaluation of additional criterion and/or repeat testing in 2-6 hours is suggested to rule out myocardial damage. >= 1.50 ng/ml Indicative of Myocardial Injury. Lab Order: BNP; [facility] 16:32 Test: BRAIN NATRIURETIC PEPTIDE; Value: 723; Range: <100; Abnormal: Above high normal; Units: PG/ML; Status: F Lab Order: A1C; [facility] 06/04/16 16:32 Test: HEMOGLOBIN A1c; Value: 7.1; Range: 4.5-6.2; Abnormal: Above high normal; Units: %; Status: F Test: ESTIMATED AVERAGE GLUCOSE; Value: 157; Range: 60-110; Abnormal: Above high normal; Units: MG/DL; Status: F Lab Order: PLATELET ESTIMATE; [facility] 06/04/16 16:32 Test: PLATELET ESTIMATE; Value: NORMAL; Range: NORMAL; Status: F Lab Order: RETICULOCYTE COUNT; [facility] 06/04/16 19:01 Test: RETICULOCYTE % [id number]; Value: 2.30; Range: 0.5-1.5; Abnormal: Above high normal; Units: %; Status: F Test: RETICULOCYTE ABSOLUTE [id number]; Value: 80; Range: 17-77; Abnormal: Above high normal; Units: x10(9)/L; Status: F Test: RETIC HEMOGLOBIN CONTENT CHr; Value: 22.3; Range: 24-36; Abnormal: Below low normal; Units: PG; Status: F Lab Order: PATHOLOGIST REVIEW COMPREHENSI; [facility] 06/04/16 19:01 Test: SLIDE REVIEW; Value: Report; Status: F Test: SOURCE; Value: PERIPHERAL SMEAR; Status: F Test: REASON FOR REVIEW; Value: COMPREHENSIVE REVIEW; Status: F Test Note: ; Slide and/or specimen referred to Pathologist for review. Results of the review are located in the EMR Pathology module under Peripheral Smear when completed. Lab Order: TYPE & SCREEN; [facility] 06/04/16 19:01 Test: BLOOD TYPE; Value: A POS; Status: F Test: AB SCREEN (INDIRECT CORBY)GEL; Value: NEGATIVE; Status: F Test: IMMEDIATE SPIN CROSSMATCH; Value: [id number] A POSITIVE Compatible? Y; Status: F Test: IMMEDIATE SPIN CROSSMATCH; Value: [id number] A POSITIVE Compatible? Y; Status: F Test: IMMEDIATE SPIN CROSSMATCH; Value: [id number] A POSITIVE Compatible? Y; Status: F Radiology Order: Chest, 1 View Test: Chest, 1 View REASON FOR EXAMINATION: Shortness of Breath; AP portable sitting chest radiograph 06/04 16; ; Indication: Chronic cough; ; Comparison: PA and lateral chest 03/25/2016 and PA and lateral chest 07/11/2015,; CTA chest 04/30/2014; ; Cardiac silhouette is mild to moderately enlarged and there is left ventricular; prominence again noted. There is cephalization of pulmonary vasculature; consistent with pulmonary venous hypertension. Small amount of bibasilar fibro; atelectatic changes are noted; ; Impression:; ; Mild to moderate cardiomegaly with left ventricular prominence again noted.; ; Pulmonary venous hypertension; ; Bibasilar fibro atelectatic changes / scarring; ; ; ; ; Signed by; Lilia Cole MD 06/04/2016 04:51 P; Radiology Order: CT Chest Angio R/O PE Test: CT Chest Angio R/O PE REASON FOR EXAMINATION: Chest Pain; Clinical: Acute chest pain.; ; Technique: Axial contrast enhanced images from the thoracic inlet to the upper; abdomen using 100 ml Isovue 370 intravenous contrast material with coronal and; sagittal re-formations.; ; Findings: Satisfactory enhancement of the pulmonary vasculature is achieved and; no filling defects are identified to suggest pulmonary embolus. Thoracic aorta; is normal caliber without aneurysm or dissection. Cardiomegaly is appreciated; along with mild pulmonary vascular congestion and trace atelectasis. No pleural; or pericardial effusion. No pneumothorax. No adenopathy.; ; Impression:; No evidence for pulmonary embolus.; Cardiomegaly with pulmonary venous congestion and trace atelectasis.; ; ; Signed by; Vivek Gaona MD 06/04/2016 06:17 P; Outcome: 18:47 Decision to Hospitalize by Provider. pc 21:21 Discharge Assessment: Patient awake, alert and oriented x 3. No cognitive and/or mlc functional deficits noted. Patient verbalized understanding of disposition instructions. patient administered narcotics - no. Discharge Assessment: patient administered narcotics - yes. Patient was admitted to the hospital or transferred to another facility. The following High Risk Discharge criteria are identified: None. Admitted to ICU accompanied by nurse, accompanied by tech, via stretcher, with oxygen, on monitor, with chart. Condition: good Condition: stable. CT Study completed. Admission hand-off: Report called to Caroline. SMYTH. Property :Personal belongings accompany Pt. 21:29 Patient left the ED. jmb Signatures: Dispatcher [employer] EDMS Juan Ramon Resendiz MD MD pc Murray, Denise, Drilling Manager Unit deg Pedro Sutton, WHEAT GROWER WHEAT GROWER kb5 Selwyn Jimenez RN RN ml6 Cindy Young, WHEAT GROWER WHEAT GROWER ct3 Nba Mendiola dem1 Bolivar Man RN RN Christine Dodge RN RN mlc Beck, Gabriela gjb Nichols, Crystal, WHEAT GROWER WHEAT GROWER cln Corrections: (The following items were deleted from the chart) 16:28 16:16 PMHx: back Pain Chronic; ml6 pc 17:14 16:16 Allergies: Amaryl; ml6 ml6 17:14 16:16 Allergies: Codeine Sulfate; ml6 ml6 Chart Complete MTDD
[2016-06-07] VITALS (8 sets, daily range): BP systolic 128–161; BP diastolic 64–74; PULSE 84
[2016-06-07] MEDS: CARVedilol 6.25 MG TAB PO SCH ×4 (01:00→17:33)
--- NOTE | 2016-06-07 01:11 | IPN ---
DATE OF SERVICE: 06/06/2016 Cardiology Progress Note SUBJECTIVE: The patient feels considerably improved from admission, has been free of shortness of breath up in the room. No further episodes of chest pain following a blood transfusion. Appears to be anxious to go home. OBJECTIVE: Obese, somewhat pale elderly lady sitting in the bedside chair comfortably. Heart rate 80 beats per minute (BPM) and regular with occasional irregularity, blood pressure 155/70 sitting with legs dependent, respiratory rate 16, oxygen saturation 96% on room air. She is afebrile. Weight today is marginally less than on admission with negative fluid balance recorded yesterday of 900 mL. Slight pallor, but no central cyanosis. Normal oral moisture. Trachea midline. Neck veins were just visible at the level of the clavicle with her sitting. Normal carotid upstroke. Increased anteroposterior chest diameter with inspiratory crepitations most of the way up posteriorly. Has some sacral and bilateral lower extremity pitting edema. Soft, obese abdomen. 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 LABORATORY DATA: Blood work this morning showed a hemoglobin of 8.7, only slightly elevated up from her admission of 7.4. White blood cell and platelet counts were normal. Chemistries today shows electrolyte balance with BUN up to 25, creatinine stable at 1.5. Glucose was normal at 91. Admission iron studies show a marked abnormality and her peripheral smear is reported as showing findings consistent with iron deficiency anemia. The patient admits to having had recurrent heavy nose bleeding the past few months, but has not mentioned this to her providers. Her last nosebleed was apparently a week ago. IMPRESSION/PLAN: 1. Iron deficiency anemia: Believed to be due to excessive chronic blood loss through epistaxis. Currently receiving iron replacement therapy. In light of her documented heart disease and ongoing anemia, our plan is to transfuse an additional two units of packed red blood cells tonight. 2. Heart failure (diastolic/acute on chronic): Believed to be provoked by her marked anemia. With the increments in transfusions I plan on giving her a dose of parenteral Lasix in addition to her present oral therapy. With her soft potassium, I will also administer at least two doses of potassium chloride (KCl) tonight and she will continue on her spironolactone. 3. Hypertensive heart disease (benign with heart failure): Echocardiographic study performed earlier today has confirmed mild concentric left ventricular hypertrophy with preserved global resting systolic function, but prominently dilated left atrium with Doppler evidence of LV diastolic dysfunction and elevated mean left atrial pressure. Her current blood pressure remains suboptimally controlled on her current dose of carvedilol, spironolactone and oral Lasix. We believe her BUN and creatinine elevations are related to her marked anemia and will improve with correction of this problem. We will transfuse initial two units today and will receive additional intravenous (IV) Lasix in light of her echocardiographically documented elevated mean left atrial pressure at this time. We will continue to monitor her chemistry closely. Her dosage of carvedilol will also be increased. 4. PVCs: Related to her underlying structural heart disease and clearly aggravated by her decompensated state and marked anemia. I have ordered additional potassium chloride as mentioned above and will check her potassium and magnesium level in the morning. I suspect increased carvedilol will likely reduce the frequency of her arrhythmia. 5. Coronary artery disease ([place] vessel)/post RCA stenting: Has remained free of symptomatic myocardial ischemia on her current low-level activity. As mentioned above, I plan to increase her dosage of carvedilol in hopes of further improving blood pressure control. At this point, she is not on an angiotensin-converting enzyme (ELLA) inhibitor because of renal insufficiency. Presently not on aspirin, antiplatelet therapy in light of her bleeding problems. I do plan to increase her isosorbide mononitrate dosage to further help well control her blood pressure and pulmonary venous pressure. I will continue to follow her with you and appreciate the opportunity to participate in her care.
[2016-06-07] MEDS: ACETAMINOPHEN TAB 650MG DOSE (2X325MG) PO PRN ×2 (02:46→16:06)
[2016-06-07] MEDS: LEVALBUTEROL 1.25 MG/0.5 ML CONCENTRATE NEB INH SCH ×4 (03:22→20:59)
[2016-06-07] MEDS: HEPARIN SOD (PORCINE) 5000 UNITS/ML VIAL SC SCH ×3 (06:23→20:33)
[2016-06-07 07:30] LABS: MEAN CORPUSCULAR HEMOGLOBIN 25.9 pg (27.0-33.0); MEAN CORPUSCULAR HGB CONC 32.4 g/dl (32.0-36.5); MEAN CORPUSCULAR VOLUME 80.1 fl (80.0-96.0); RED CELL DISTRIBUTION WIDTH 16.5 % (11.5-14.5); WHITE BLOOD COUNT 9.5 K/mm3 (4.0-10.0)
[2016-06-07 08:02] LABS: CALCIUM LEVEL 8.5 MG/DL (8.8-10.2); CREATININE FOR GFR 1.59 MG/DL (0.55-1.02); GLOMERULAR FILTRATION RATE 33.8 (>39)
[2016-06-07] MEDS: HumaLOG INSULIN (NovoLOG) PER UNIT SC SCH ×4 (08:43→20:33)
[2016-06-07] MEDS: SPIRONOLACTONE 25 MG TAB PO SCH (08:44)
[2016-06-07] MEDS: buPROPion **XL** TABLET 150MG (WELLBUTRIN XL) PO SCH (08:44)
[2016-06-07] MEDS: FERROUS SULFATE 325MG TAB PO SCH ×2 (08:44→20:33)
[2016-06-07] MEDS: ASCORBIC ACID 500 MG TAB PO SCH ×2 (08:44→17:33)
[2016-06-07] MEDS: ISOSORBIDE MONONITRATE 10MG TABLET PO SCH ×2 (08:44→16:06)
[2016-06-07] MEDS: OMEPRAZOLE 20 MG CAP PO SCH ×2 (08:44→20:33)
[2016-06-07] MEDS: CLOPIDOGREL 75 MG TAB PO SCH (08:44)
[2016-06-07] MEDS: DOCUSATE SODIUM 100 MG CAP PO SCH ×2 (08:45→20:33)
[2016-06-07] MEDS: FUROSEMIDE 40 MG TAB PO SCH ×2 (08:50→16:06)
--- NOTE | 2016-06-07 09:25 | ECHO ---
DATE OF PROCEDURE: 06/06/2016 AGE: 76 GENDER: Female. HEIGHT: 64 inches. WEIGHT: 211 pounds BODY SURFACE AREA: 2.0 sq m INPATIENT: Intensive care unit (ICU), room 3202. REFERRING PHYSICIAN: Dr. Jolly INDICATION: Heart failure. MEASUREMENTS: 2D MEASUREMENTS: RV: 3.7 cm LV: 5.4 cm Septum: 1.3 cm Posterior wall: 1.3 cm Aortic root: 3.5 cm LA: 4.9 cm LVEF: 60% DOPPLER MEASUREMENTS: AV: 1.3 m/s LVOT: 1.2 m/s MV-E: 94 A: 130 E/A ratio: 0.8 Early mitral deceleration time: 257 ms E prime: 4.4 A prime: 8 E/E prime ratio: 22 PV: 1.0 m/s Pulmonary artery acceleration time: 116 ms PASP: 27 mmHg IVC: 2.2 cm COMMENTS: Normal sinus rhythm without intraventricular conduction disturbance. Occasional frequent isolated PVCs. Moderately dilated left atrium, but normal left ventricular size. Right heart chamber sizes were normal. Left ventricle (LV) wall thickness was mildly increased symmetrically. On real-time imaging from the parasternal and apical projections, wall motion was symmetrical and normal. Slightly thickened mitral annulus, but normal leaflet thickness and excursion with no posterior systolic buckling. Three equal size aortic cusps with normal cusp thickness and cusp separation. Normal aortic root size. No apparent intracardiac mass or pericardial effusion. Color flow Doppler study taken from the parasternal and apical projections showed very mild mitral, trace tricuspid, and trace pulmonic, but no aortic insufficiency. Guided continuous wave Doppler of her aortic valve showed a normal peak systolic velocity against LV outflow tract obstruction. Pulsed and continuous wave Doppler of her LV inflow tract taken from the apical four-chamber projection showed normal diastolic filling velocities against mitral stenosis. There was more prominent late diastolic/atrial dependent filling pattern. Diastolic dysfunction was further confirmed by a prolonged early mitral deceleration time and tissue Doppler of her mitral annulus. Her current estimated mean left atrial pressure at this time was 22 mmHg. Pulsed and continuous wave Doppler of her pulmonary trunk showed a normal peak systolic velocity against right ventricular (RV) outflow tract obstruction. Her current pulmonary artery acceleration time was normal against an elevated pulmonary vascular resistance. We attempted to further estimate her right ventricular systolic pressure using guided continuous wave Doppler of her tricuspid valve but could not obtain a clear spectral envelope. Her inferior vena cava was mildly dilated but collapsed normally with respiration against an elevated central venous pressure at this time. CONCLUSIONS: Mild concentric left ventricle hypertrophy with normal global systolic function. Moderately dilated left atrium with Doppler evidence of an impairment of LV diastolic function and elevated mean left atrial pressure at this time, and Doppler sign of pulmonary arterial pressure. Mildly dilated inferior vena cava (IVC) but normal respiratory collapse against an elevated central venous pressure at this time.
--- NOTE | 2016-06-07 12:50 | IPN ---
DATE: 06/07/2016 The patient is seen in the progressive care unit (PCU). She feels well. She got more blood yesterday. She is less short of breath. Family says that she looks much improved as well. She was seen by Dr. Ojeda and appreciate his input. She did have an echocardiogram which showed normal systolic function, left atrial dilatation, left ventricular diastolic dysfunction. She has a history of coronary artery disease, has right coronary artery (RCA) stenting. She is not on aspirin due to the recurrent epistaxis that lead to her iron deficiency anemia. She is on Plavix. PHYSICAL EXAMINATION: Blood pressure 154/67, pulse of 72, respiratory rate 18, 95% oxygen saturation. GENERAL APPEARANCE: Resting comfortably in no distress, visiting with family members. NECK: No jugular venous distention (JVD). LUNGS: Improved breath sounds, clear. HEART: Regular rate and rhythm, 1-2 over 6 systolic ejection murmur at the apex. ABDOMEN: Soft, nontender. No masses. EXTREMITIES: No peripheral edema. LABORATORY DATA: Hemoglobin is up to 10 after two more units of blood which gives her a total of four units total transfusion this hospitalization. Electrolytes are unremarkable. Creatinine is 1.6 which is stable. Blood sugars are improved. They are now in the 100-200 range with no more hyperglycemia. IMPRESSION: 1. Congestive heart failure, improved. She is on an oral dose of furosemide 40 mg twice a day as well as spironolactone 25 mg daily. Echocardiogram as summarized above. 2. Iron deficiency anemia, secondary to recurrent epistaxis, status post a total of four units of transfusion. Antiplatelet drugs adjusted with aspirin discontinued. 3. Coronary artery disease. She is on Plavix, no aspirin. Continue beta earl therapy. Continue statin therapy. 4. Hypertensive heart disease. Blood pressure is under good control on her current regimen with systolic pressure between 130 and 150. I would watch her hemoglobin for another day or so and also see whether she needs an augmented dose of oral furosemide. Tentative discharge date is 05/30/2016. This has been discussed with the patient and family.
[2016-06-07 14:22] LABS: MAGNESIUM LEVEL 2.1 MG/DL (1.8-2.4)
[2016-06-07] MEDS: LORazepam 1 MG TAB PO SCH (20:33)
[2016-06-07] MEDS: LEVEMIR (INSULIN DETEMIR) 1 UNITS/0.01ML SC SCH (20:34)
[2016-06-08] MEDS: LEVALBUTEROL 1.25 MG/0.5 ML CONCENTRATE NEB INH SCH ×4 (01:22→19:44)
[2016-06-08 04:11] VITALS: BP 135/63
[2016-06-08 05:09] LABS: CALCIUM LEVEL 8.9 MG/DL (8.8-10.2); CREATININE FOR GFR 1.59 MG/DL (0.55-1.02); GLOMERULAR FILTRATION RATE 33.8 (>39); POTASSIUM SERUM 3.3 MEQ/L (3.5-5.1)
[2016-06-08 05:12] LABS: MEAN CORPUSCULAR HEMOGLOBIN 25.4 pg (27.0-33.0); MEAN CORPUSCULAR HGB CONC 31.7 g/dl (32.0-36.5); RED CELL DISTRIBUTION WIDTH 17.3 % (11.5-14.5); WHITE BLOOD COUNT 8.7 K/mm3 (4.0-10.0)
[2016-06-08] MEDS: HEPARIN SOD (PORCINE) 5000 UNITS/ML VIAL SC SCH ×3 (05:17→21:56)
[2016-06-08] MEDS: CARVedilol 6.25 MG TAB PO SCH ×4 (05:18→17:46)
[2016-06-08] MEDS: HumaLOG INSULIN (NovoLOG) PER UNIT SC SCH ×4 (07:30→21:50)
[2016-06-08 08:00] VITALS: BP 176/77
[2016-06-08] MEDS ORDERED: POTASSIUM CHLORIDE 10 MEQ SR TABLET PO ONE (08:00)
[2016-06-08] MEDS: ISOSORBIDE MONONITRATE 10MG TABLET PO SCH ×2 (09:00→14:22)
[2016-06-08] MEDS: OMEPRAZOLE 20 MG CAP PO SCH ×2 (09:11→21:56)
[2016-06-08] MEDS: CLOPIDOGREL 75 MG TAB PO SCH (09:12)
[2016-06-08] MEDS: SPIRONOLACTONE 25 MG TAB PO SCH (09:12)
[2016-06-08] MEDS: ASCORBIC ACID 500 MG TAB PO SCH ×2 (09:12→17:45)
[2016-06-08] MEDS: buPROPion **XL** TABLET 150MG (WELLBUTRIN XL) PO SCH (09:12)
[2016-06-08] MEDS: FERROUS SULFATE 325MG TAB PO SCH ×2 (09:12→21:56)
[2016-06-08] MEDS: DOCUSATE SODIUM 100 MG CAP PO SCH ×2 (09:12→21:00)
[2016-06-08] MEDS: FUROSEMIDE 40 MG TAB PO SCH ×2 (09:12→17:45)
--- NOTE | 2016-06-08 10:46 | IPNPDOC ---
Assessment/Plan Date Seen The patient was seen on 06/08/16. Problems Problems: (1) Acute CHF (congestive heart failure) Status: Acute Response to Treatment: Improving Problem Text: CT showed CM with pulm venous congestion and atelectasis Responding to small dose of IV Lasix - clinically does not appear to have severe decompensation Continue IV Lasix for now and consult cardiology for opinion since her heart failure on exam does not clearly explain her severe dyspnea. 06/08/2016: well compensated. Improving. anticipate DC in am if hgb remains stable. (2) Chronic cough Status: Acute Problem Text: Recently saw pulmonary who are arranging formal PFTs. Recommended CT which was done. Also recommended considering d/c of ELLA, but her med list here does not show that she is on an ELLA inhibitor. Will need to consult cardiology to clarify what she is actually taking at home because our med list at office does not match med list at pulmonary which does not match med list from cardiology which does not match med list here. I will augment her PPI since she saw GI in October and has Diaphragmatic hernia with previous h/o esoph dilation. (3) Iron deficiency anemia Status: Chronic Response to Treatment: Worse Problem Text: Hgb acutely worse than baseline, but may be dilutional from decompensated CHF - HGB improved slight since admission with diuresis and 3 units PRBC given Last EGD 09/2015 (Dr. 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 Langston) - Diverticulosis and polyps. Continue FESO4 06/08/16: stable hgb at 10 today. monitor. if remains stable, DC home in am. (4) [place] cardiomyopathy Status: Chronic Response to Treatment: Stable (5) CAD in [place] artery Status: Chronic Response to Treatment: Stable (6) Diabetes type 2, controlled Status: Chronic Response to Treatment: Stable Problem Text: Decrease Levemir slightly due to FBS 95 this am (7) Former smoker Status: Resolved Response to Treatment: Stable Plan / VTE VTE Prophylaxis Ordered?: Yes (SQ heparin) Subjective Review of Systems CC/HPI The patient is a 76-year-old female admitted with a reason for visit of Congestive Heart Failure. Events since last encounter Denies c/o. Constitutional: Denies: Chills, Fever ENT: Denies: Dysphagia, Ear Pain, Epistaxis, Head Aches Skin: Denies: Lesions, Rash Pulmonary: Denies: Cough, Dyspnea Cardiovascular: Denies: Chest Pain, Orthopnea, Palpitations Gastrointestinal: Denies: Abdominal Pain, Constipation, Diarrhea, Nausea, Vomiting Genitourinary: Denies: Dysuria, Frequency Neurological: Denies: Weakness Psych: Reports: Mood Normal Objective Physical Examination General Exam: Positive: Alert, No Acute Distress Neck Exam: Negative: JVD Chest Exam: Positive: Clear to auscultation, Normal air movement Heart Exam: Positive: Rate Normal, Regular Rhythm Abdomen Exam: Positive: Normal bowel sounds, Soft, Negative: Tenderness Extremity Exam: Negative: Edema Psych Exam: Positive: Mental status NL, Oriented x 3 Vital Signs/I&O Vital Signs Date Time Temp Pulse Resp B/P Pulse Ox O2 Delivery O2 Flow Rate FiO2 06/08/16 08:00 97.5 62 18 176/77 95 Room Air 06/04/16 21:45 2.0 I&O- Last 24 Hours up to 6 AM 06/08/16 06:00 Intake Total 1380 ml Output Total 1975 ml Balance -595 ml Laboratory Data Labs 24H Laboratory Tests 2 06/07/16 11:56: Bedside Glucose (Misc Panel) 130H 06/08/16 04:35: Anion Gap 8, Blood Urea Nitrogen 27H, Creatinine 1.59H, Sodium Level 142, Potassium Level 3.3L, Chloride Level 104, Carbon Dioxide Level 30, Calcium Level 8.9, Glomerular Filtration Rate 33.8L CBC/BMP Laboratory Tests 06/08/16 04:35 Calcium Level 8.9, Red Blood Count 3.98 L, Mean Corpuscular Volume 80.0, Mean Corpuscular Hemoglobin 25.4 L, Mean Corpuscular Hemoglobin Concent 31.7 L, Red Cell Distribution Width 17.3 H FSBS Laboratory Tests Test 06/07/16 11:56 Range/Units Bedside Glucose (Misc Panel) 130 83-110 MG/DL Microbiology Microbiology 06/04/16 MRSA Screen - Final, Complete Marcie Renner COMMERCIAL FIELD INSPECTOR Jun 08, 2016 10:46
[2016-06-08] MEDS: POTASSIUM CHLORIDE 10 MEQ SR TABLET PO SCH ×3 (13:08→21:56)
[2016-06-08] MEDS: ACETAMINOPHEN TAB 650MG DOSE (2X325MG) PO PRN (14:22)
[2016-06-08 14:45] VITALS: BP 170/77
--- NOTE | 2016-06-08 15:05 | IPN ---
CARDIOLOGY PROGRESS NOTE DATE: 06/07/2016 SUBJECTIVE: Has had a good night. Tolerated receiving two further units of packed red blood cells without problem. On her low level activity in the room has been free of further chest discomfort, shortness of breath or dizziness. Unfortunately, she has a history of migraine illness and the increased dose of isosorbide mononitrate may be aggravating this problems. I have suggested she take Tylenol with her isosorbide therapy and see if this remedies the problem. OBJECTIVE: Obese, somewhat less pale elderly lady sitting comfortably in the bedside chair. Heart rate 68 beats per minute and regular with occasional frequent irregularity. Blood pressure 140/66, sitting with legs dependent, respiratory rate 16 with oxygen saturation 94% on room air. Afebrile. Weight today is recorded as 5 kg up from yesterday. No central cyanosis. Normal oral moisture. Trachea midline. Neck veins were just at the level of the clavicle with her sitting, unchanged from yesterday. Continues to have bilateral lower lobe inspiratory crepitations and some sacral and bilateral lower extremity pitting edema. Her abdomen is soft. SERIALS LIBRARIAN: Continues to show sinus rhythm with occasional to frequent isolated PVCs. No more complex or symptomatic arrhythmia. LABORATORY DATA: Hemoglobin this morning is up to 10. Normal white blood cell count and platelet count. Her electrolytes are normal. BUN and creatinine essentially stable from yesterday at 27 and 1.59. Fasting glucose 109. IMPRESSION/PLAN: 1. Heart failure (diastolic/acute on chronic): Free of apparent symptoms or dyspnea on her low level of activity in the room, but still has signs of congestion believed to be triggered by her marked anemia. Following additional 2 units of packed red blood cells yesterday, her hemoglobin would be considered acceptable from our standpoint at this time. Remains on combination carvedilol, isosorbide mononitrate, Lasix 40 mg twice a day, and spironolactone 25 mg daily. I have requested that she start ambulating on the floor today. I have not increased her diuretic therapy in light of her present renal function, but we will continue to monitor her fluid status and renal function closely. I anticipate she will be able to be discharged either tomorrow or the next day and we will follow her as an outpatient. 2. Hypertensive heart disease (benign with heart failure): Current blood pressure has improved with increased carvedilol and isosorbide mononitrate with her diuretics. I have not elected to make any further change at this time. At the time of her discharge, carvedilol will be switched to twice a day rather than four times a day dosing. 3. PVCs: Continues to have occasional to frequent unifocal PVCs but no symptomatic or more complex arrhythmia. Magnesium level pending, but other electrolytes are normal at this time. Continues on carvedilol and spironolactone, both of which have been shown to prevent more complex tachyarrhythmias. 4. Coronary artery disease ([place] vessel)/post RCA stenting: We anticipate her previous chest discomfort associated with her marked anemia will not recur with her hemoglobin of 10 g/dL and her adjusted medical therapy. We would appreciate monitoring her ambulation over the next 24-48 hours to confirm this. Remains on carvedilol, isosorbide mononitrate, and Plavix.
[2016-06-08] MEDS: amLODIPine 5 MG TAB PO SCH (17:44)
--- NOTE | 2016-06-08 17:47 | IPN ---
DATE: 06/08/2016 CARDIOLOGY PROGRESS NOTE SUBJECTIVE: The patient has been up and down the [place] halls without chest pain, shortness of breath or dizziness. No longer suffering headaches, receiving Tylenol with her isosorbide mononitrate dosing. Appears to tolerate other medications without problems. OBJECTIVE: Obese, pleasant, elderly lady sitting comfortably in the chair by her bedside. No current pallor or icterus. Heart rate 72 beats per minute and regular with occasional irregularity. Blood pressure 156/75 sitting with legs dependent, respiratory rate 18 per minute, oxygen saturation 95% on room air. Afebrile. Her weight I believe is essentially stable despite slight negative fluid balances. Normal oral moisture. No central cyanosis. Trachea midline. Neck veins below her clavicle sitting. Has improved air entry over both lung luna with no more than subtle bibasilar inspiratory crepitations. No sacral and less lower leg pitting edema. Her abdomen remains obese and soft. CHANNEL BUSINESS MANAGER: Currently on 4 pavilion but earlier today prior to her transfer her rhythm was sinus with occasional to frequent isolated unifocal PVCs. Again no complex or symptomatic arrhythmia. LABORATORY DATA: Blood work today shows a stable hemoglobin, normal white blood cell count and platelet count. Impressively her potassium has dropped to question of 3.3 despite the same Lasix therapy. Other electrolytes were normal. BUN 27, creatinine 1.59, unchanged from yesterday. Fasting glucose 70. IMPRESSION/PLAN: 1. Hypokalemia: Somewhat difficult to reconcile as she has been on the same dose of Lasix with spirolactone and her weight is essentially stable with only slight negative fluid balance. I have ordered KCl 20 mEq four times a day for the time being and anticipate she will require KCl 20 mg twice a day upon discharge. I have not changed her spironolactone dosage. 2. Heart failure (diastolic/acute on chronic): Currently free of effort dyspnea or orthopnea. Systemic edema is less. Her hemoglobin has remained stable. I have requested a followup PA and left lateral chest x-ray in the x-ray department for tomorrow morning. 3. Hypertensive heart disease (benign with heart failure): Despite her negative fluid balance and apparent slight weight reduction and improved systemic edema, her blood pressure today is actually higher! At this point I have elected to increase her carvedilol dosage and switch this to twice a day and I have also ordered at least low-dose amlodipine. I am cautiously optimistic that the combination of carvedilol 18.75 mg twice a day, amlodipine 5 mg daily, isosorbide mononitrate 30 mg twice a day, Lasix 40 mg twice a day and spironolactone 25 mg daily will prove adequate for blood pressure control. As mentioned, BUN and creatinine were stable. 4. PVCs: Prior to her transfer to the floor off telemetry, stringer machine tender had shown no significant change from previous days, only isolated focal PVCs that were occasional to frequent. Magnesium level yesterday was normal at 2.1, potassium dropped as mentioned above. Steps have been taken to rectify her hypokalemia as described. Followup chemistry scheduled for tomorrow morning. 5. Coronary artery disease ([place] vessel)/post RCA stenting: With her rectified anemia, has been free of symptomatic myocardial ischemia. A followup EKG has been requested for the morning for several reasons including the increased dose of carvedilol and previous borderline first-degree AV block. She will remain on carvedilol twice a day, isosorbide mononitrate twice a day, low-dose amlodipine and Plavix. I am cautiously optimistic she will be able to be discharged tomorrow and we will be able to continue to follow her as an outpatient. We will give her a tentative office followup appointment in 1 week. Thank you for allowing me to participate in the care of your patient. Best regards.
[2016-06-08] MEDS: LEVEMIR (INSULIN DETEMIR) 1 UNITS/0.01ML SC SCH (21:55)
[2016-06-08] MEDS: LORazepam 1 MG TAB PO SCH (21:56)
[2016-06-08 22:00] VITALS: BP 178/80
[2016-06-09 02:00] VITALS: BP 140/72
[2016-06-09] MEDS: LEVALBUTEROL 1.25 MG/0.5 ML CONCENTRATE NEB INH SCH ×3 (02:00→13:27)
[2016-06-09 06:00] VITALS: BP 131/61
[2016-06-09 06:08] VITALS: BP 162/68
[2016-06-09] MEDS: CARVedilol 6.25 MG TAB PO SCH (06:08)
[2016-06-09] MEDS: HEPARIN SOD (PORCINE) 5000 UNITS/ML VIAL SC SCH (06:08)
[2016-06-09 06:48] LABS: MEAN CORPUSCULAR HEMOGLOBIN 26.1 pg (27.0-33.0); MEAN CORPUSCULAR HGB CONC 31.9 g/dl (32.0-36.5); MEAN CORPUSCULAR VOLUME 81.9 fl (80.0-96.0); RED CELL DISTRIBUTION WIDTH 17.7 % (11.5-14.5); WHITE BLOOD COUNT 9.1 K/mm3 (4.0-10.0)
[2016-06-09 06:49] LABS: CALCIUM LEVEL 9.9 MG/DL (8.8-10.2); CREATININE FOR GFR 1.56 MG/DL (0.55-1.02); GLOMERULAR FILTRATION RATE 34.5 (>39); POTASSIUM SERUM 4.2 MEQ/L (3.5-5.1)
[2016-06-09] MEDS: ISOSORBIDE MONONITRATE 10MG TABLET PO SCH (08:05)
[2016-06-09] MEDS: ASCORBIC ACID 500 MG TAB PO SCH (08:05)
[2016-06-09] MEDS: CLOPIDOGREL 75 MG TAB PO SCH (08:06)
[2016-06-09] MEDS: buPROPion **XL** TABLET 150MG (WELLBUTRIN XL) PO SCH (08:06)
[2016-06-09] MEDS: POTASSIUM CHLORIDE 10 MEQ SR TABLET PO SCH ×2 (08:06→12:26)
[2016-06-09] MEDS: FUROSEMIDE 40 MG TAB PO SCH (08:06)
[2016-06-09] MEDS: ACETAMINOPHEN TAB 650MG DOSE (2X325MG) PO PRN (08:06)
[2016-06-09] MEDS: HumaLOG INSULIN (NovoLOG) PER UNIT SC SCH ×2 (08:07→12:00)
[2016-06-09] MEDS: SPIRONOLACTONE 25 MG TAB PO SCH (08:07)
[2016-06-09] MEDS: amLODIPine 5 MG TAB PO SCH (08:07)
[2016-06-09] MEDS: OMEPRAZOLE 20 MG CAP PO SCH (08:07)
[2016-06-09] MEDS: FERROUS SULFATE 325MG TAB PO SCH (08:07)
[2016-06-09] MEDS: DOCUSATE SODIUM 100 MG CAP PO SCH (08:07)
[2016-06-09] MEDS ORDERED: AMLO5TAB2 PO (10:48)
[2016-06-09] MEDS ORDERED: FURO40TA2 PO (10:48)
[2016-06-09] MEDS ORDERED: ISOS10TAB PO (10:48)
[2016-06-09] MEDS ORDERED: CARV6.25 PO (10:48)
[2016-06-09] MEDS ORDERED: POTA10CA PO (10:48)
--- NOTE | 2016-06-09 11:16 | DSES ---
DATE OF ADMISSION: 06/04/2016 DATE OF DISCHARGE: ATTENDING PHYSICIAN: Dr. Audi Dodson PRIMARY CARE PROVIDERS: Dr. Alejandro Hughes and Tanya Smith, nurse practitioner HISTORY OF PRESENT ILLNESS: A 76-year-old female, past medical history of coronary artery disease (CAD), status post myocardial infarction (DE), chronic low back pain, depression, diabetes, hyperlipidemia, [id number] history of smoking, breast cancer, iron-deficiency anemia, presents to the emergency room with 3-day history of worsening cough, shortness of breath, and chest tightness. Workup demonstrated congestive heart failure, most likely secondary to severe symptomatic anemia. Cardiac markers were negative. Electrocardiogram (EKG) was unremarkable for acute ST-T wave changes. The patient was subsequently admitted to progressive care unit (PCU) under telemetry. Strict intake and output (I and O), daily weights, fluid restriction, and aggressive diuresis with Lasix intravenous (IV) was initiated. Admitting hemoglobin was 7.4. Iron studies demonstrated low iron of 16. The patient received 3 total units of packed red cells. Was diuresed appropriately pre- and posttransfusion. Cardiology was consulted. Medications were adjusted accordingly. Imaging completed includes: CT angiogram, which showed no evidence for pulmonary embolus, positive cardiomegaly with pulmonary venous congestion and trace atelectasis. Chest x-ray completed 06/04/2016 with moderate cardiomegaly with left ventricular prominence again noted, pulmonary venous hypertension. Chest x-ray completed this morning. Results are pending. Echocardiogram completed 06/06/[address] Ojeda. Moderately dilated left atrium but normal left ventricular size. Right heart chamber sizes were normal. Left ventricle (LV) wall thickness was mildly increased symmetrically. Ejection fraction (EF) calculated at 60%. See report for further information. CONSULTS: Cardiology, Dr. Ojeda. On physical examination today, blood pressures are ranging anywhere from 130 to 170 over 80. Heart rate has been stable in the 60-70 range. Oxygen saturation 92% on room air. Temperature 96.5. HEENT: Neck is supple without jugular venous distention (JVD) or lymphadenopathy. No carotid bruits appreciated. Cardiovascular: Heart rate and rhythm are regular. Pulmonary: Lungs are clear to auscultation bilaterally. Abdomen is soft and nontender. Bilateral lower extremities are with trace edema. Neurologic: The patient is alert and oriented times three. No appreciated tremor. Psychiatric: Affect is flat. However, conversation is appropriate and congruent. The patient does maintain eye contact well. ASSESSMENT: 1. Congestive heart failure, acute exacerbation secondary to anemia. 2. Significant iron-deficiency anemia, questionable related to some recurrent epistaxis the patient had noted. 3. History of chronic obstructive pulmonary disease (COPD). 4. History of coronary artery disease (CAD) with myocardial infarction (DE). 5. Hypertension. 6. Hyperlipidemia. 7. Chronic pain. 8. Depression. 9. Diabetes. 10. Breast cancer. PLAN: The patient will be discharged home. She will followup with her primary care provider this week with a basic metabolic profile (BMP) at that appointment. She will followup with cardiology next week. She will see Dr. Ojeda or Dr. Harding. Diet is [id number] with 800 mL fluid restriction. Activity is as tolerated. Prescriptions are as follows: Amlodipine 5 mg by mouth daily, carvedilol 18.75 mg by mouth twice a day, furosemide 40 mg one by mouth twice a day, isosorbide mononitrate 30 mg by mouth twice a day, potassium chloride 20 mEq by mouth daily, albuterol sulfate two puffs every 4 hours as needed for shortness of breath, aspirin 81 mg one daily, bupropion 150 mg tablet daily in conjunction with 300 mg tablet by mouth daily to equal 450 mg total daily, Plavix 75 mg one daily, NovoLog sliding scale subcutaneous before food, Lantus 60 units subcutaneous nightly, Ativan 1 mg by mouth nightly, nitroglycerin sublingual 0.4 mg every 5 minutes as needed chest pain, omeprazole 40 mg capsule by mouth daily, spironolactone 25 mg by mouth daily. The patient is discharged in stable and satisfactory condition with no further questions at the time of discharge.
--- NOTE | 2016-06-09 12:36 | REP ---
CHEST X-RAY: Two views. HISTORY: Follow up CHF. FINDINGS: Heart is enlarged unchanged compared with the 06/04/2016 prior study. There is some linear discoid atelectasis visible in both bases. Lung luna are otherwise clear. Pleural angles are sharp. Pulmonary vasculature is not increased. There are degenerative changes in the thoracic spine and aorta. IMPRESSION: Cardiomegaly. Linear bibasilar plate-like atelectasis. No evidence of pleural effusion or pulmonary edema seen. Some pulmonary vascular cephalization is noted unchanged. Signed by Thanh Joaquin MD 06/09/2016 02:34 P
--- NOTE | 2016-06-09 22:07 | ECGEPIP ---
Stationary ECG Study [facility] Test Date: 2016-06-09 Pat Name: WEN SCHWAB Department: Room: [place] [address] Gender: F Car Supervisor: HAO : 1940 Requested By: Saul Ojeda Order Number: [id number] Reading MD: Johnathon Millan Measurements Intervals [place] Rate: 63 P: 80 IA: 217 QRS: -7 QRSD: 116 T: 76 QT: 428 QTc: 441 Interpretive Statements Normal sinus rhythm with first degree AV block Left ventricular hypertrophy with repolarization abnormality No significant change when compared to prior tracing of 06/05/2016--except ectopy has resolved Electronically Signed On 06-09-2016 22:06:35 EST by Johnathon Millan
== END 2016-06-09 13:55 | disposition home or self-care (01) | DRG 811 ==
LOC: M ED 15:44 → M ED INP 18:37 → M ICU 21:33 → M PCU 06-06 15:11 → M MSPAV 06-08 14:35
PROVIDERS: ADMIT General Practice; ATTEND Family Medicine
PROC: 30233N1 Transfusion of Nonautologous Red Blood Cells into Peripheral Vein, Percutaneous Approach (ICD-10-PCS; principal; 2016-06-04)
DX: D50.9 Iron deficiency anemia, unspecified (principal); I50.33 Acute on chronic diastolic (congestive) heart failure; N17.9 Acute kidney failure, unspecified; I51.81 Takotsubo syndrome; I13.0 Hypertensive heart and chronic kidney disease with heart failure and stage 1 through stage 4 chronic kidney disease, or unspecified chronic kidney disease; I25.10 Atherosclerotic heart disease of native coronary artery without angina pectoris; I25.2 Old myocardial infarction; E78.5 Hyperlipidemia, unspecified; F32.9 Major depressive disorder, single episode, unspecified; E11.9 Type 2 diabetes mellitus without complications; Z87.891 Personal history of nicotine dependence; Z91.19 Patient's noncompliance with other medical treatment and regimen; M54.5 Low back pain; Z96.653 Presence of artificial knee joint, bilateral; Z88.5 Allergy status to narcotic agent; Z88.8 Allergy status to other drugs, medicaments and biological substances; Z79.899 Other long term (current) drug therapy; Z91.018 Allergy to other foods; Z79.82 Long term (current) use of aspirin; Z79.4 Long term (current) use of insulin; Z85.3 Personal history of malignant neoplasm of breast; N18.3 Chronic kidney disease, stage 3 (moderate); R04.0 Epistaxis

== ENCOUNTER → 2016-06-15 | Outpatient (REF) | payer OTHER ==
[~2016-06-15] MED LIST changes: +ALBU17IN INH; +AMLO10TA2 PO; +AMLO5TAB2 PO; +BUPR150T3 PO; +BUPR300T34 PO; +CARV6.25 PO; +FURO40TA2 PO; +INSULANT SC; +ISOS10TAB PO; +METO25TA74 PO; +OMEP40CA2 PO; +POTA10CA PO
[2016-06-15 11:36] LABS: MEAN CORPUSCULAR HEMOGLOBIN 26.3 pg (27.0-33.0); MEAN CORPUSCULAR HGB CONC 31.5 g/dl (32.0-36.5); MEAN CORPUSCULAR VOLUME 83.4 fl (80.0-96.0); RED CELL DISTRIBUTION WIDTH 17.9 % (11.5-14.5); WHITE BLOOD COUNT 6.4 K/mm3 (4.0-10.0)
[2016-06-15 11:53] LABS: CALCIUM LEVEL 9.1 MG/DL (8.8-10.2); CREATININE FOR GFR 1.89 MG/DL (0.55-1.02); GLOMERULAR FILTRATION RATE 27.7 (>39); POTASSIUM SERUM 4.4 MEQ/L (3.5-5.1)
== END ==
LOC: M SFHCCLAY 08:46
PROVIDERS: ATTEND Family Medicine
DX: I50.33 Acute on chronic diastolic (congestive) heart failure (principal); D50.0 Iron deficiency anemia secondary to blood loss (chronic); Z95.5 Presence of coronary angioplasty implant and graft

== ENCOUNTER → 2016-06-30 | Outpatient (REF) | payer OTHER ==
[2016-06-30 11:16] LABS: BASO % 0.6 % (0.0-1.0); EOS # 0.2 K/mm3 (0.0-0.50); EOS % 3.4 % (0.0-3.0); LARGE UNSTAINED CELL # 0.3 K/mm3 (0.0-0.4); LARGE UNSTAINED CELL % 4.2 % (0.0-4.0); LYMPH # 1.2 K/mm3 (1.5-4.5); LYMPH % 20.5 % (24.0-44.0); MEAN CORPUSCULAR HEMOGLOBIN 26.1 pg (27.0-33.0); MEAN CORPUSCULAR HGB CONC 30.8 g/dl (32.0-36.5); MEAN CORPUSCULAR VOLUME 84.9 fl (80.0-96.0); MONO # 0.3 K/mm3 (0.0-0.8); MONO % 4.9 % (0.0-5.0); NEUTROPHILS # 3.8 K/mm3 (1.8-7.7); NEUTROPHILS % 66.3 % (36.0-66.0); PLATELET COUNT, AUTOMATED 319 k/mm3 (150-450); RED CELL DISTRIBUTION WIDTH 18.7 % (11.5-14.5); WHITE BLOOD COUNT 5.8 K/mm3 (4.0-10.0)
[2016-06-30 11:35] LABS: ALBUMIN 3.4 GM/DL (3.2-5.2); ALBUMIN/GLOBULIN RATIO 0.87 (1.00-1.93); BILIRUBIN,TOTAL 0.4 MG/DL (0.2-1.0); CALCIUM LEVEL 9.3 MG/DL (8.8-10.2); CREATININE FOR GFR 1.47 MG/DL (0.55-1.02); POTASSIUM SERUM 4.1 MEQ/L (3.5-5.1); TOTAL PROTEIN 7.3 GM/DL (6.4-8.2)
[2016-06-30 12:15] LABS: ERYTHROCYTE SEDIMENTATION RATE 63 mm/hr (0-30)
== END ==
LOC: M SFHCCLAY 06:55
PROVIDERS: ATTEND Nurse Practitioner
DX: I10 Essential (primary) hypertension (principal); F32.9 Major depressive disorder, single episode, unspecified; E11.8 Type 2 diabetes mellitus with unspecified complications; I50.32 Chronic diastolic (congestive) heart failure; E83.41 Hypermagnesemia

== ENCOUNTER → 2016-06-30 | Outpatient (REF) | payer OTHER ==
[2016-06-30 11:41] LABS: ALBUMIN 3.4 GM/DL (3.2-5.2); CALCIUM LEVEL 9.3 MG/DL (8.8-10.2); CREATININE FOR GFR 1.46 MG/DL (0.55-1.02); GLOMERULAR FILTRATION RATE 37.3 (>39); MAGNESIUM LEVEL 2.3 MG/DL (1.8-2.4); PHOSPHORUS LEVEL 3.2 MG/DL (2.5-4.9); POTASSIUM SERUM 4.2 MEQ/L (3.5-5.1)
== END ==
LOC: M LABDRAWC 11:27
PROVIDERS: ATTEND Physician Assistant
DX: I50.32 Chronic diastolic (congestive) heart failure (principal); E83.41 Hypermagnesemia

== ENCOUNTER → 2016-07-28 | Outpatient (REF) | payer OTHER ==
[2016-07-28 11:46] LABS: MEAN CORPUSCULAR HEMOGLOBIN 27.5 pg (27.0-33.0); MEAN CORPUSCULAR HGB CONC 31.4 g/dl (32.0-36.5); MEAN CORPUSCULAR VOLUME 87.7 fl (80.0-96.0); RED CELL DISTRIBUTION WIDTH 19.4 % (11.5-14.5); WHITE BLOOD COUNT 7.7 K/mm3 (4.0-10.0)
== END ==
LOC: M SFHCCLAY 07:09
PROVIDERS: ATTEND Family Medicine
DX: M19.90 Unspecified osteoarthritis, unspecified site (principal)

== ENCOUNTER → 2016-07-29 | Outpatient (CLI) | payer OTHER ==
--- NOTE | 2016-07-31 07:18 | RADONC ---
RADIATION ONCOLOGY FOLLOWUP NOTE DATE: 07/29/2016 CHART NUMBER: [id number]. DIAGNOSIS: Left breast cancer. STAGE: 0, [id number]. ECOG PERFORMANCE STATUS: 0 FOLLOWUP NOTE: Ms. 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 The patient presents today reporting that generally she is doing quite well at this point. She reports that she was hospitalized 2 months ago for congestive heart failure and anemia requiring three transfusions. Since discharge from the hospital she has been doing quite well and has no new complaints at this time. REVIEW OF SYSTEMS: The patient's review of systems is noncontributory. She denies nausea, vomiting, fevers, chills, night sweats, diplopia, headaches, anxiety or depression, anorexia, weight loss, visual disturbances, chest pain, urinary or bowel difficulties, bone pain, or neurological problems. PHYSICAL EXAMINATION: The patient is a well-developed, well-nourished white female in no acute distress. HEENT exam is normocephalic, atraumatic. Extraocular movements are intact. There is no palpable cervical, supraclavicular, infraclavicular, axillary, or inguinal lymphadenopathy present. Lungs are clear to auscultation and percussion. Heart has a regular rate and rhythm. Abdomen is benign with no hepatosplenomegaly, masses, or tenderness. Breast examination reveals no masses or discharge bilaterally. Skeletal examination reveals no tenderness to pressure or percussion of the bony skeleton. Extremities reveal no clubbing, cyanosis, or edema. Neurologic exam is grossly intact, as is the remainder of the physical examination. ASSESSMENT: The patient is clinically MIRIAN at this time and will be seen by us again in 6 months for further followup. She will also continue be followed by her other physicians as well. cc: *Marylin Smith NP
== END ==
LOC: M ONCR 13:16
PROVIDERS: ATTEND Radiology Radiation Oncology
DX: C50.412 Malignant neoplasm of upper-outer quadrant of left female breast (principal)

== ENCOUNTER → 2016-08-12 | Outpatient (REF) | payer OTHER | LOC: M SFHCCLAY 06:51 | PROVIDERS: ATTEND Family Medicine | DX: M19.90 Unspecified osteoarthritis, unspecified site (principal) ==

== ENCOUNTER → 2016-08-21 | Outpatient (REF) | payer OTHER | LOC: M SFHCCLAY 11:32 | PROVIDERS: ATTEND Family Medicine | DX: R35.0 Frequency of micturition (principal) | CPT/HCPCS: 81002; 87086; G0463 ==

== ENCOUNTER → 2016-09-09 | Outpatient (REF) | payer OTHER | LOC: M SFHCCLAY 06:46 | PROVIDERS: ATTEND Family Medicine | DX: M35.3 Polymyalgia rheumatica (principal) ==

== ENCOUNTER → 2016-09-23 | Outpatient (REF) | payer OTHER ==
[~2016-09-23] MED LIST changes: +AVEL1TAB PO; +FERR325T3 PO; +HYDR200T3 PO; +ISOS30TA4 PO; +LEVA500T PO; +POTA1TAB14 PO; +PRED20TA PO; +PRED25TA PO; +VITA-130 PO
[2016-09-23 18:56] LABS: ALBUMIN 3.1 GM/DL (3.2-5.2); CALCIUM LEVEL 9.4 MG/DL (8.8-10.2); CREATININE FOR GFR 1.28 MG/DL (0.55-1.02); GLOMERULAR FILTRATION RATE 43.4 (>39); MAGNESIUM LEVEL 1.9 MG/DL (1.8-2.4); PHOSPHORUS LEVEL 2.5 MG/DL (2.5-4.9); POTASSIUM SERUM 3.5 MEQ/L (3.5-5.1)
== END ==
LOC: M LABDRAWC 17:09
PROVIDERS: ATTEND Physician Assistant
DX: I50.32 Chronic diastolic (congestive) heart failure (principal); E83.41 Hypermagnesemia
CPT/HCPCS: 80069; 83735; G0463

== ENCOUNTER → 2016-10-09 | Outpatient (CLI) | payer OTHER ==
[~2016-10-09] MED LIST changes: -LEVA500T PO
--- NOTE | 2016-10-09 14:11 | REP ---
Clinical: Acute cough. Technique: PA and lateral. Comparison: 06/09/2016. Findings: Mediastinum and cardiac silhouette are stable with mild cardiomegaly again suggested. Lung luna demonstrate diffuse chronic interstitial change is and diffusely coarsened markings which may reflect underlying fibrosis and scarring. Superimposed atelectasis in the right mid/lower lung zone identified. No effusion. No pneumothorax. Skeletal structures intact. Impression: Plate-like atelectasis in the right lower lung zone.
== END ==
LOC: M CLY 13:21
PROVIDERS: ATTEND Physician Assistant
DX: I50.32 Chronic diastolic (congestive) heart failure (principal)

== ENCOUNTER 2016-10-10 17:34 | Inpatient (IN) | payer OTHER ==
[~2016-10-10] VITALS: Ht 167.6 cm; Wt 104.8 kg
[~2016-10-10 17:34] MED LIST changes: -AVEL1TAB PO; -FERR325T3 PO; -HYDR200T3 PO; -ISOS30TA4 PO; -POTA1TAB14 PO; -PRED20TA PO; -PRED25TA PO; -VITA-130 PO
[2016-10-10] MEDS ORDERED: PRED25TA PO (17:56)
[2016-10-10] MEDS ORDERED: HYDR200T3 PO (17:56)
[2016-10-10 18:59] LABS: BASO % 0.4 % (0.0-1.0); EOS # 0.1 K/mm3 (0.0-0.50); EOS % 0.6 % (0.0-3.0); LARGE UNSTAINED CELL # 0.4 K/mm3 (0.0-0.4); LARGE UNSTAINED CELL % 2.8 % (0.0-4.0); LYMPH # 0.6 K/mm3 (1.5-4.5); MEAN CORPUSCULAR HEMOGLOBIN 30.3 pg (27.0-33.0); MEAN CORPUSCULAR HGB CONC 32.7 g/dl (32.0-36.5); MEAN CORPUSCULAR VOLUME 92.6 fl (80.0-96.0); MONO # 0.6 K/mm3 (0.0-0.8); MONO % 4.1 % (0.0-5.0); NEUTROPHILS # 11.9 K/mm3 (1.8-7.7); NEUTROPHILS % 88.1 % (36.0-66.0); PLATELET COUNT, AUTOMATED 311 k/mm3 (150-450); RED CELL DISTRIBUTION WIDTH 14.8 % (11.5-14.5); WHITE BLOOD COUNT 13.5 K/mm3 (4.0-10.0)
--- NOTE | 2016-10-10 19:06 | REP ---
Clinical: Cough and dyspnea. Technique: PA and lateral. Comparison: 10/09/2016. Findings: Mediastinum and cardiac silhouette are stable. Lung luna demonstrate diffuse chronic interstitial changes. Superimposed basilar atelectasis and linear plate-like atelectasis in the right lower lung zone cannot be excluded. No effusion. No pneumothorax. Skeletal structures demonstrate osteopenia and degenerative change. Impression: Diffuse chronic changes. Superimposed lower lobe atelectasis (right greater than left) cannot be excluded. Signed by Vivek Gaona MD 10/10/2016 06:57 P
[2016-10-10 19:21] LABS: CALCIUM LEVEL 8.6 MG/DL (8.8-10.2); CREATININE FOR GFR 1.82 MG/DL (0.55-1.02); GLOMERULAR FILTRATION RATE 28.9 (>39); POTASSIUM SERUM 3.5 MEQ/L (3.5-5.1)
[2016-10-10] MEDS ORDERED: ISOS30TA4 PO (19:57)
[2016-10-10] MEDS ORDERED: FERR325T3 PO (19:57)
[2016-10-10] MEDS ORDERED: FURO40TA2 PO (19:57)
[2016-10-10] MEDS ORDERED: CARV6.25 PO (19:57)
[2016-10-10] MEDS ORDERED: POTA1TAB14 PO (19:57)
[2016-10-10] MEDS ORDERED: VITA-130 PO (19:57)
[2016-10-10] MEDS ORDERED: AMLO5TAB2 PO (19:58)
--- NOTE | 2016-10-10 20:40 | REPUSA ---
CLINICAL HISTORY: SOB. TECHNIQUE: Multiple axial CT images were obtained through chest without IV contrast material. MPR cor onal and sagittal sequences were obtained. COMMENTS: Biapical centrilobular emphysema is seen. Right middle lobe consolidation is seen with air bronchograms compatible with pneumonia. Trace bilateral pleural effusion versus pleural thickening is seen. Bibasilar scarring is noted.1 There is no evidence of pleural or parenchymal mass. There are no pleural effusions. There is no evid ence of hilar or mediastinal lymphadenopathy. The heart and great vessels are within normal limits. The visualized portions of the liver are of uniform attenuation without mass or defect. There is no i ntra or extrahepatic biliary ductal dilatation. The spleen is unremarkable. The visualized pancreas i s of normal contour and attenuation characteristics. There is no evidence of adrenal mass. 3 mm nono bstructing right renal calculus seen. Status post cholecystectomy. The bony structures are free of lytic or blastic lesions. Multilevel degenerative changes are seen in volving the thoracic spine. Scattered calcifications are seen involving the aorta and visualized parker r branches compatible with atherosclerosis. IMPRESSION: Biapical centrilobular emphysema is seen. Right middle lobe consolidation is seen with air bronchograms compatible with pneumonia. Trace bilateral pleural effusion versus pleural thickening is seen. 3 mm nonobstructing right renal calculus seen. Thank you for your kind referral of this patient.
[2016-10-10] MEDS ORDERED: FUROSEMIDE 40 MG TAB PO SCH (21:00)
[2016-10-10] MEDS ORDERED: NITROGLYCERIN 0.4 MG SUBL TABLET SL PRN (21:15)
[2016-10-10] MEDS ORDERED: LEVALBUTEROL 1.25 MG/0.5 ML CONCENTRATE NEB INH PRN (21:15)
[2016-10-10] MEDS ORDERED: MOXIFLOXACIN HCL 400 MG in APPROPRIATE DILUENT 1 EA IV ONE (21:15)
[2016-10-10] MEDS ORDERED: LevoFLOXacin IV 750 MG in APPROPRIATE DILUENT 1 EA IV ONE (21:15)
[2016-10-10] MEDS ORDERED: IPRATROPIUM 0.02% SOLN 0.5MG/2.5 ML NEB INH PRN (21:15)
[2016-10-10] MEDS ORDERED: ALBUTEROL 90 MCG/ACT 8GM HFA INHALER INH PRN (21:15)
[2016-10-10] MEDS ORDERED: GLUCOSE 4 GM CHEW TABLET PO PRN (21:30)
[2016-10-10] MEDS ORDERED: GLUCAGON FOR INJ 1 MG VIAL (J1610) SC PRN (21:30)
[2016-10-10] MEDS ORDERED: DEXTROSE 50% 50 ML SYRINGE IV PRN (21:30)
[2016-10-10 23:44] VITALS: BP 178/70
--- NOTE | 2016-10-11 00:03 | HPE ---
DATE OF ADMISSION: 10/10/2016 PRIMARY CARE PROVIDER: Alejandro Hughes MD. CHIEF COMPLAINT: Shortness of breath. HISTORY OF PRESENTING ILLNESS: This is a 76-year-old female with history of congestive heart failure (CHF), diastolic dysfunction, coronary artery disease (CAD), myocardial infarction ([place]), drug-eluting stent, left ventricular hypertrophy (LVH), takotsubo cardiomyopathy April 2014 which resolved, hypertension, hypertensive heart disease, frequent PVCs, hypercholesterolemia, remote prior history of smoking, type 2 diabetes, obesity, chronic kidney disease stage III, depression, left breast cancer with lumpectomy 2013 status post radiation, migraine headaches, presents to the emergency room with 5-6 day history of worsening shortness of breath initially noted while she was sitting down, which has worsened for the past 2 days. Patient thought that this was her CHF acting up. She did gain about 5 pounds the past month, but lost 3-4 pounds in the past week due to decreased appetite and has not eaten for 5 days. Last evening, she went to bed, started feeling very cold, woke up sweating, complained of a dry cough. No sick contacts, no travel. She also complains of frontal headache. No sinus congestion. And a sore neck when she coughs. No medications were taken at home. No chest pressure aside from when she coughs. No lower extremity edema. Patient denies any diarrhea, nausea, vomiting, but did have some dry heaves yesterday. In the emergency room (ER), she was found to have white count of 13.5, afebrile, saturating 81% on room air, found to be hypoxic. CT of the chest showed a right middle lobe consolidation compatible with pneumonia with biapical central lobular emphysema, trace bilateral effusions versus pleural thickening. Hospitalist service was called for admission for right middle lobe pneumonia, community acquired. PAST MEDICAL HISTORY: 1. CAD [place] vessel, coronary drug-eluting stent proximal mid right coronary artery (RCA) June 2007. 2. Takotsubo cardiomyopathy April 2014, resolved. 3. Systemic hypertension diagnosed in 1991. 4. Hypertensive heart disease. 5. Diastolic heart failure diagnosed in May 2007. 6. Frequent PVCs. 7. Hypercholesterolemia. 8. Remote prior history of smoking. 9. Type 2 diabetes. 10. Obesity. 11. Chronic kidney disease stage III. 12. Reflux. 13. Depression. 14. Seasonal allergies. 15. Neuropathy. 16. Left breast cancer. 17. Left breast lumpectomy 04/23/2014, status post radiation. 18. Migraine headaches. 19. Biapical central lobular emphysema. PAST SURGICAL HISTORY: 1. Carpal tunnel release July 2006. 2. Bilateral knee surgeries. 3. Cholecystectomy 1997. 4. Oophorectomy, partial hysterectomy 1974. 5. Left breast lumpectomy 04/23/2014. 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 Prior history of smoking, four packs per day for 40 years, quit in 1988. No alcohol. FAMILY HISTORY: Father prostate cancer (CA). Mother CVAs. Both father and mother are . One brother had cystic fibrosis, . Another brother after . Sister with stroke, . Another sister with stroke , . Cystic fibrosis in a third sister, . Fourth sister arthritis and depression. REVIEW OF SYSTEMS: Per history of present illness (HPI), 12-point system otherwise negative. PHYSICAL EXAMINATION: VITAL SIGNS: Temperature 99.4, pulse 76, respiratory rate 24, blood pressure 187/79, 93% on 3 liters nasal cannula, 81% on room air. GENERAL: Patient is awake, alert, oriented times three, answering questions appropriately. No use of respiratory accessory muscles. Able to speak in full sentences. HEENT: No jugular venous distention, thyromegaly. Moist mucous membranes. Pupils are round and reactive to light and accommodation. Extraocular muscles are intact. Edentulous with upper dentures. LUNGS: Patient has crackles in the bilateral bases and right middle lobe. Diminished breath sounds with inspiratory wheezing. HEART: S1, S2, sinus rhythm. No murmurs, rubs or gallops. ABDOMEN: Soft, nontender, nondistended. Positive bowel sounds. EXTREMITIES: No pitting edema. LABORATORY DATA: White count 13.5, hemoglobin 12, hematocrit 38, platelet count 311, neutrophil shift 88.1, lymphocytes 4. Sodium 132, potassium 3.5, chloride 89, bicarbonate 32, BUN 21, creatinine 1.82, glucose 305, calcium 8.6. Total CK 120, MB fraction 1, troponin 0.05, BNP of 531. Chest CT: Right middle lobe consolidation compatible with pneumonia, biapical central lobular emphysema, trace bilateral effusions versus pleural thickening, 3 mm nonobstructing right renal calculus. ASSESSMENT AND PLAN: This is a 76-year-old female with history of coronary artery disease (CAD), drug-eluting stent proximal mid right coronary artery (RCA), takotsubo cardiomyopathy, systemic hypertension, diastolic heart failure, hypertensive heart disease, frequent PVCs, hypercholesterolemia, prior history of smoking with biapical central lobular emphysema, obesity, chronic kidney disease stage III, reflux, depression, arthritis, neuropathy, seasonal allergies and rhinitis, left breast cancer ([place]), with lumpectomy 2014 status post radiation, migraine headaches, presents to the emergency room with 5-6 day history of worsening shortness of breath, worse in the past 2 days with subjective fevers and chills, weight loss of 3-4 pounds due to decreased appetite and decrease in oral intake, no sick contacts, accompanied with headaches frontal in nature and neck soreness when she coughs. She was found to have a right middle lobe pneumonia. Hospitalist service was called for admission. Patient will be signed out to Dr. Reza Zarate at 7 a.m. on 10/11/2016, [facility] for the following issues. She is admitted as an inpatient for: 1. Community-acquired pneumonia, right middle lobe. Patient has no risk factors for methicillin-resistant Staphylococcus aureus (MRSA) or pseudomonas; therefore , we would give ceftriaxone, azithromycin; however, patient has an allergy to amoxicillin. Therefore, will give Avelox for now. Obtain a sputum culture, blood cultures, urine legionella, urine streptococcal antigen. Nebulizer treatments, supplemental oxygen. 2. Acute hypoxic respiratory failure secondary to right middle lobe pneumonia. Check a sputum culture, supplemental oxygen to keep saturations above 90%. Check respiratory panel. Treat for community-acquired pneumonia with Avelox. Await culture results. 3. History of CAD and stent. Cycle cardiac markers. Obtain 12-lead EKG. Patient appears to be compensated from her heart failure. Monitor for ischemic symptoms. 4. History of congestive heart failure, diastolic dysfunction, history of takotsubo cardiomyopathy, which resolved 2013. She currently follows with Dr. Harding and Dr. Ojeda' office. Currently appears to be compensated. Continue with home dose of Lasix, spironolactone. Monitor patient's creatinine, adjust accordingly. Strict intake and output (I and O), daily weights and fluid restriction. 5. Type 2 diabetes. Check A1c. Continue on Lantus insulin sliding scale and consistent carbohydrate diet. 6. Hypercholesterolemia. Check fasting lipid profile in the morning. Continue statin. 7. History of left breast cancer status post lumpectomy 2014 status post radiation treatment. No acute issues. 8. History of migraine headaches. Continue to monitor for now. Avoid triptans and avoid nonsteroidal antiinflammatory drugs (NSAIDs) due to chronic kidney disease stage III. 9. Prior history of smoking with central lobular biapical emphysema. Nebulizer treatments routinely and as needed. Keep saturations with supplemental oxygen above 90%. 10. Chronic kidney disease stage III. Avoid nephrotoxins, renally dose all medications and repeat basic metabolic panel, monitor I and O, daily weights and fluid status. Deep venous thrombosis (DVT) prophylaxis: Compression stockings. MTDD
[2016-10-11] MEDS: ISOSORBIDE MON. (IMDUR) 30 MG XR TAB PO SCH ×3 (00:55→20:51)
[2016-10-11] MEDS: LORazepam 1 MG TAB PO SCH ×2 (00:55→20:51)
[2016-10-11] MEDS: CARVedilol 6.25 MG TAB PO SCH ×3 (00:56→20:51)
[2016-10-11] MEDS: HumaLOG INSULIN (NovoLOG) PER UNIT SC SCH ×5 (00:56→20:52)
[2016-10-11] MEDS: LEVEMIR (INSULIN DETEMIR) 1 UNITS/0.01ML SC SCH ×2 (00:57→20:52)
[2016-10-11] MEDS: IPRATROPIUM 0.02% SOLN 0.5MG/2.5 ML NEB INH SCH ×7 (04:00→23:43)
[2016-10-11 05:43] LABS: BASO % 0.3 % (0.0-1.0); EOS # 0.1 K/mm3 (0.0-0.50); LARGE UNSTAINED CELL # 0.6 K/mm3 (0.0-0.4); LARGE UNSTAINED CELL % 4.6 % (0.0-4.0); LYMPH # 1.2 K/mm3 (1.5-4.5); LYMPH % 4.5 % (24.0-44.0); MEAN CORPUSCULAR HEMOGLOBIN 29.9 pg (27.0-33.0); MEAN CORPUSCULAR HGB CONC 33.1 g/dl (32.0-36.5); MEAN CORPUSCULAR VOLUME 90.3 fl (80.0-96.0); MONO # 0.7 K/mm3 (0.0-0.8); MONO % 5.3 % (0.0-5.0); NEUTROPHILS # 10.7 K/mm3 (1.8-7.7); NEUTROPHILS % 84.3 % (36.0-66.0); PLATELET COUNT, AUTOMATED 283 k/mm3 (150-450); RED CELL DISTRIBUTION WIDTH 14.9 % (11.5-14.5); WHITE BLOOD COUNT 12.7 K/mm3 (4.0-10.0)
[2016-10-11 05:59] LABS: CREATININE FOR GFR 1.59 MG/DL (0.55-1.02); GLOMERULAR FILTRATION RATE 33.8 (>39); POTASSIUM SERUM 3.3 MEQ/L (3.5-5.1)
[2016-10-11 06:00] VITALS: BP 165/74
[2016-10-11] MEDS: LEVALBUTEROL 1.25 MG/0.5 ML CONCENTRATE NEB INH SCH ×6 (07:29→23:42)
[2016-10-11] MEDS ORDERED: MOXIFLOXACIN 400 MG TAB PO SCH (09:00)
[2016-10-11] MEDS ORDERED: FUROSEMIDE 40 MG TAB PO SCH (09:00)
[2016-10-11] MEDS ORDERED: predniSONE 2.5 MG TAB PO SCH (09:00)
[2016-10-11] MEDS ORDERED: buPROPion **XL** TABLET 150MG (WELLBUTRIN XL) PO SCH (09:00)
[2016-10-11] MEDS: CLOPIDOGREL 75 MG TAB PO SCH (09:01)
[2016-10-11] MEDS: ASCORBIC ACID 500 MG TAB PO SCH (09:01)
[2016-10-11] MEDS: buPROPion **XL** TABLET 150MG (WELLBUTRIN XL) PO SCH (09:01)
[2016-10-11] MEDS: HYDROXYCHLOROQUINE 200 MG TAB PO SCH (09:01)
[2016-10-11] MEDS: POTASSIUM CHLORIDE 10 MEQ SR TABLET PO SCH (09:02)
[2016-10-11] MEDS: SPIRONOLACTONE 25 MG TAB PO SCH (09:02)
[2016-10-11] MEDS: OMEPRAZOLE 20 MG CAP PO SCH (09:03)
[2016-10-11] MEDS: FERROUS SULFATE 325MG TAB PO SCH (09:03)
[2016-10-11] MEDS: amLODIPine 5 MG TAB PO SCH (09:04)
[2016-10-11] MEDS: ONDANSETRON 4MG/2ML VIAL (J2405) IV PRN (12:21)
[2016-10-11 14:00] VITALS: BP 159/82
--- NOTE | 2016-10-11 14:14 | IPNPDOC ---
Subjective Date Seen The patient was seen on 10/11/16. Subjective Chief Complaint/HPI The patient is a 76-year-old female admitted with a reason for visit of Pneumonia. General: Denies: Chills Eyes: Denies: Pain Pulmonary: Reports: Dyspnea (improved from 10/10) Cardiovascular: Denies: Chest Pain Gastrointestinal: Denies: Nausea Genitourinary: Denies: Dysuria Objective Physical Examination General Exam: Positive: No Acute Distress Neck Exam: Positive: JVD (5 cm) Chest Exam: Positive: Rales (R basilar), Diminished Heart Exam: Positive: Rate Normal, Normal S1, Normal S2, Negative: Murmurs Abdomen Exam: Positive: Normal bowel sounds Extremity Exam: Positive: Edema (B 1 mm PT) Assessment /Plan Problems (1) COPD (chronic obstructive pulmonary disease) Status: Acute Problem Text: not on home O2 (baseline SaO2 95% on RA) and baseline only uses Ventolin prn 10/11 poor air movement; therefore, + DM 125 q8H, Xop/Atrovent q4H, titrate 02 to keep >90% (2) Pneumonia Status: Acute Problem Text: D2 moxifloxacin 10/10/16 CT chest small RML infiltrate (3) CAD in [place] artery Status: Chronic Response to Treatment: Stable Problem Text: No active ischemia 10/10 serial CIP/T-I - (4) Diastolic CHF Status: Acute Problem Text: HD fur 40 BID/jarde 25 QD 10/11 mild decompensation-changed to fur 40 IV BID, K 3.3- +20 po x 1 10/10 BNP 531 (5) CKD (chronic kidney disease) stage 3, GFR 30-59 ml/min Problem Text: at baseline cr 1.6 (6) Diabetes type 2, controlled Status: Chronic Response to Treatment: Stable Problem Text: Continues HD Lantus 50 qhs c SSNI BS mid-high 100s s hypos Plan/VTE VTE Prophylaxis Ordered?: Yes VS, I&O, 24H, Fishbone Vital Signs/I&O Vital Signs Date Time Temp Pulse Resp B/P (MAP) Pulse Ox O2 Delivery O2 Flow Rate FiO2 10/11/16 09:04 75 149/68 10/11/16 07:55 Room Air 10/11/16 06:00 100.0 20 91 2.0 I&O- Last 24 Hours up to 6 AM 10/11/16 06:00 Intake Total 710 ml Output Total 400 ml Balance 310 ml Laboratory Data 24H LABS Laboratory Tests 2 10/10/16 18:50: White Blood Count 13.5H, Red Blood Count 4.15, Hemoglobin 12.6, Hematocrit 38.4 , Mean Corpuscular Volume 92.6, Mean Corpuscular Hemoglobin 30.3, Mean Corpuscular Hemoglobin Concent 32.7, Red Cell Distribution Width 14.8H, Platelet Count 311, Neutrophils (%) (Auto) 88.1H, Lymphocytes (%) (Auto) 4.0L, Monocytes (%) (Auto) 4.1, Eosinophils (%) (Auto) 0.6, Basophils (%) (Auto) 0.4, Neutrophils # (Auto) 11.9H, Lymphocytes # (Auto) 0.6L, Monocytes # (Auto) 0.6, Eosinophils # (Auto) 0.1, Basophils # (Auto) 0.0, Large Unclassified Cells % 2.8 , Large Unclassified Cells # 0.4, Anion Gap 11, Glomerular Filtration Rate 28.9L , Blood Urea Nitrogen 21H, Creatinine 1.82H, Sodium Level 132L, Potassium Level 3.5, Chloride Level 89L, Carbon Dioxide Level 32, Calcium Level 8.6L, Total Creatine Kinase 120, Creatine Kinase MB 1.0, Creatine Kinase MB Relative Index 0.83, Troponin I 0.05, B-Type Natriuretic Peptide 531H 10/10/16 23:56: Total Creatine Kinase 146, Creatine Kinase MB 1.1, Creatine Kinase MB Relative Index 0.75, Troponin I 0.05 10/11/16 00:49: Bedside Glucose (Misc Panel) 199H 10/11/16 05:21: White Blood Count 12.7H, Red Blood Count 3.82L, Hemoglobin 11.4L, Hematocrit 34.5L, Mean Corpuscular Volume 90.3, Mean Corpuscular Hemoglobin 29.9, Mean Corpuscular Hemoglobin Concent 33.1, Red Cell Distribution Width 14.9H, Platelet Count 283, Neutrophils (%) (Auto) 84.3H, Lymphocytes (%) (Auto) 4.5L, Monocytes (%) (Auto) 5.3H, Eosinophils (%) (Auto) 1.0, Basophils (%) (Auto) 0.3 , Neutrophils # (Auto) 10.7H, Lymphocytes # (Auto) 1.2L, Monocytes # (Auto) 0.7 , Eosinophils # (Auto) 0.1, Basophils # (Auto) 0.0, Large Unclassified Cells % 4.6H, Large Unclassified Cells # 0.6H, Anion Gap 10, Glomerular Filtration Rate 33.8L, Blood Urea Nitrogen 22H, Creatinine 1.59H, Sodium Level 133L, Potassium Level 3.3L, Chloride Level 91L, Carbon Dioxide Level 32, Calcium Level 9.0, Total Creatine Kinase 162, Creatine Kinase MB 1.0, Creatine Kinase MB Relative Index 0.61, Troponin I 0.06 10/11/16 11:31: Bedside Glucose (Misc Panel) 204H CBC/BMP Laboratory Tests 10/10/16 18:50 Red Blood Count 4.15, Mean Corpuscular Volume 92.6, Mean Corpuscular Hemoglobin 30.3, Mean Corpuscular Hemoglobin Concent 32.7, Red Cell Distribution Width 14.8 H, Neutrophils (%) (Auto) 88.1 H, Lymphocytes (%) (Auto) 4.0 L, Monocytes ( %) (Auto) 4.1, Eosinophils (%) (Auto) 0.6, Basophils (%) (Auto) 0.4, Neutrophils # (Auto) 11.9 H, Lymphocytes # (Auto) 0.6 L, Monocytes # (Auto) 0.6 , Eosinophils # (Auto) 0.1, Basophils # (Auto) 0.0, Calcium Level 8.6 L, Total Creatine Kinase 120 10/11/16 05:21 Red Blood Count 3.82 L, Mean Corpuscular Volume 90.3, Mean Corpuscular Hemoglobin 29.9, Mean Corpuscular Hemoglobin Concent 33.1, Red Cell Distribution Width 14.9 H, Neutrophils (%) (Auto) 84.3 H, Lymphocytes (%) (Auto ) 4.5 L, Monocytes (%) (Auto) 5.3 H, Eosinophils (%) (Auto) 1.0, Basophils (%) ( Auto) 0.3, Neutrophils # (Auto) 10.7 H, Lymphocytes # (Auto) 1.2 L, Monocytes # (Auto) 0.7, Eosinophils # (Auto) 0.1, Basophils # (Auto) 0.0, Calcium Level 9.0 , Total Creatine Kinase 162 Microbiology Microbiology 10/10/16 Blood Culture, Received Pending 10/10/16 Blood Culture, Received Pending Reza Zarate M.D. October 11, 2016 14:14
[2016-10-11] MEDS: methylPREDNISolone INJ 125 MG/2 ML VIAL (J2930) IV SCH ×2 (15:34→22:00)
[2016-10-11] MEDS: FUROSEMIDE 40 MG/4 ML VIAL (J1940) IV SCH (17:26)
--- NOTE | 2016-10-11 19:57 | ECGEPIP ---
Stationary ECG Study [facility] - ED Test Date: 2016-10-10 Pat Name: WEN SCHWAB Department: Room: [place] [address] Gender: F Telecommunications Analyst: JEIMY : 1940 Requested By: LUIS Gordon Order Number: [id number] Reading MD: Cindy Meredith Measurements Intervals [place] Rate: 81 P: 151 NE: 197 QRS: -26 QRSD: 123 T: 0 QT: 383 QTc: 446 Interpretive Statements ECTOPIC ATRIAL RHYTHM POSSIBLE LEFT VENTRICULAR HYPERTROPHY INCREASED RATE 06/09/16 Electronically Signed On 10-11-2016 19:57:39 EDT by Cindy Meredith
[2016-10-11 20:24] VITALS: BP 154/74
[2016-10-11] MEDS: guaiFENesin DM LIQ 10ML UD PO PRN (20:50)
[2016-10-11] MEDS: ENOXAPARIN 30 MG/0.3 ML SYR (J1650) SC SCH (20:52)
[2016-10-11 22:00] VITALS: BP 154/74
[2016-10-12] MEDS: IPRATROPIUM 0.02% SOLN 0.5MG/2.5 ML NEB INH SCH ×6 (03:32→23:48)
[2016-10-12] MEDS: LEVALBUTEROL 1.25 MG/0.5 ML CONCENTRATE NEB INH SCH ×6 (03:33→23:48)
[2016-10-12 05:33] LABS: BASO % 0.2 % (0.0-1.0); EOS % 0.2 % (0.0-3.0); LARGE UNSTAINED CELL # 0.1 K/mm3 (0.0-0.4); LARGE UNSTAINED CELL % 1.7 % (0.0-4.0); LYMPH # 0.7 K/mm3 (1.5-4.5); LYMPH % 8.6 % (24.0-44.0); MEAN CORPUSCULAR HEMOGLOBIN 30.4 pg (27.0-33.0); MEAN CORPUSCULAR HGB CONC 32.8 g/dl (32.0-36.5); MEAN CORPUSCULAR VOLUME 92.4 fl (80.0-96.0); MONO # 0.2 K/mm3 (0.0-0.8); MONO % 2.3 % (0.0-5.0); NEUTROPHILS # 7.1 K/mm3 (1.8-7.7); PLATELET COUNT, AUTOMATED 315 k/mm3 (150-450); RED CELL DISTRIBUTION WIDTH 14.5 % (11.5-14.5); WHITE BLOOD COUNT 8.2 K/mm3 (4.0-10.0)
[2016-10-12 05:52] LABS: ALBUMIN 2.4 GM/DL (3.2-5.2); ALBUMIN/GLOBULIN RATIO 0.47 (1.00-1.93); BILIRUBIN,TOTAL 0.3 MG/DL (0.2-1.0); CALCIUM LEVEL 9.6 MG/DL (8.8-10.2); CREATININE FOR GFR 1.85 MG/DL (0.55-1.02); GLOMERULAR FILTRATION RATE 28.4 (>39); MAGNESIUM LEVEL 2.2 MG/DL (1.8-2.4); POTASSIUM SERUM 3.6 MEQ/L (3.5-5.1); TOTAL PROTEIN 7.5 GM/DL (6.4-8.2)
[2016-10-12 06:00] VITALS: BP 167/74
[2016-10-12] MEDS: methylPREDNISolone INJ 125 MG/2 ML VIAL (J2930) IV SCH ×3 (06:21→21:58)
[2016-10-12] MEDS: HYDROXYCHLOROQUINE 200 MG TAB PO SCH (07:47)
[2016-10-12] MEDS: buPROPion **XL** TABLET 150MG (WELLBUTRIN XL) PO SCH (07:47)
[2016-10-12] MEDS: HumaLOG INSULIN (NovoLOG) PER UNIT SC SCH ×4 (07:47→21:59)
[2016-10-12] MEDS: OMEPRAZOLE 20 MG CAP PO SCH (07:48)
[2016-10-12] MEDS: POTASSIUM CHLORIDE 10 MEQ SR TABLET PO SCH (07:48)
[2016-10-12] MEDS: ASCORBIC ACID 500 MG TAB PO SCH (07:48)
[2016-10-12] MEDS: SPIRONOLACTONE 25 MG TAB PO SCH (07:49)
[2016-10-12] MEDS: FERROUS SULFATE 325MG TAB PO SCH (07:49)
[2016-10-12] MEDS: CARVedilol 6.25 MG TAB PO SCH ×2 (07:49→20:18)
[2016-10-12] MEDS: ISOSORBIDE MON. (IMDUR) 30 MG XR TAB PO SCH ×2 (07:49→20:19)
[2016-10-12] MEDS: CLOPIDOGREL 75 MG TAB PO SCH (07:49)
[2016-10-12] MEDS: amLODIPine 5 MG TAB PO SCH (07:50)
[2016-10-12] MEDS: MOXIFLOXACIN HCL 400 MG in APPROPRIATE DILUENT 1 EA IV SCH (07:55)
[2016-10-12] MEDS: FUROSEMIDE 40 MG/4 ML VIAL (J1940) IV SCH ×2 (07:55→17:22)
[2016-10-12] MEDS: DOCUSATE SODIUM 100 MG CAP PO SCH ×2 (10:41→20:18)
[2016-10-12] MEDS: SENNA 8.6 MG TAB (SENOKOT) PO PRN ×2 (10:41→20:19)
--- NOTE | 2016-10-12 12:02 | IPNPDOC ---
Subjective Date Seen The patient was seen on 10/12/16. Subjective Chief Complaint/HPI The patient is a 76-year-old female admitted with a reason for visit of Pneumonia. Events since last encounter Pt this morning reports some improvement in her breathing. +cough minimal to no sputum production. General: Denies: Fatigue Constitutional: Denies: Chills, Fever Pulmonary: Reports: Dyspnea, Cough Cardiovascular: Denies: Chest Pain, Palpitations Gastrointestinal: Denies: Nausea, Vomiting, Diarrhea Neurological: Denies: Weakness Psych: Reports: Mood Normal Objective Physical Examination General Exam: Positive: No Acute Distress Neck Exam: Positive: JVD (5 cm) Chest Exam: Positive: Rales (R basilar), Diminished Heart Exam: Positive: Rate Normal, Normal S1, Normal S2, Negative: Murmurs Abdomen Exam: Positive: Normal bowel sounds Extremity Exam: Positive: Edema (B 1 mm PT) Assessment /Plan Problems (1) COPD (chronic obstructive pulmonary disease) Status: Acute Problem Text: 10/12 - improved resp, change solumedrol from 125 mg q8h to 60 mg q8h, cont with nebs, remains on 3 L O2 10/11 poor air movement; therefore, + DM 125 q8H, Xop/Atrovent q4H, titrate 02 to keep >90% not on home O2 (baseline SaO2 95% on RA) and baseline only uses Ventolin prn (2) Pneumonia Status: Acute Problem Text: D3 moxifloxacin 10/10/16 CT chest small RML infiltrate (3) CAD in [place] artery Status: Chronic Response to Treatment: Stable Problem Text: No active ischemia 10/10 serial CIP/T-I - (4) Diastolic CHF Status: Acute Problem Text: HD fur 40 BID/jared 25 QD 10/11 mild decompensation-changed to fur 40 IV BID, K 3.3- +20 po x 1 10/10 BNP 531 (5) CKD (chronic kidney disease) stage 3, GFR 30-59 ml/min Problem Text: at baseline cr 1.6 (6) Diabetes type 2, controlled Status: Chronic Response to Treatment: Stable Problem Text: Continues HD Lantus 50 qhs c SSNI BS mid-high 100s s hypos Plan/VTE VTE Prophylaxis Ordered?: Yes Plan Attending note: I saw and evaluated the patient, and agree with the plan of care as discussed and documented by Luda Shields. White count is down-trending. Wean pred. Cont abx. Aidan Dodson MD VS, I&O, [facility] Vital Signs/I&O Vital Signs Date Time Temp Pulse Resp B/P (MAP) Pulse Ox O2 Delivery O2 Flow Rate FiO2 10/12/16 07:50 71 146/66 10/12/16 07:26 Nasal Cannula 3.0 10/12/16 06:00 97.0 19 93 I&O- Last 24 Hours up to 6 AM 10/12/16 05:59 Intake Total 740 ml Output Total 1050 ml Balance -310 ml Laboratory Data 24H LABS Laboratory Tests 2 10/11/16 16:24: Bedside Glucose (Misc Panel) 151H 10/11/16 17:09: 10/11/16 20:24: Bedside Glucose (Misc Panel) 259H 10/12/16 05:22: White Blood Count 8.2, Red Blood Count 3.85L, Hemoglobin 11.7L, Hematocrit 35.6L , Mean Corpuscular Volume 92.4, Mean Corpuscular Hemoglobin 30.4, Mean Corpuscular Hemoglobin Concent 32.8, Red Cell Distribution Width 14.5, Platelet Count 315, Neutrophils (%) (Auto) 87.0H, Lymphocytes (%) (Auto) 8.6L, Monocytes (%) (Auto) 2.3, Eosinophils (%) (Auto) 0.2, Basophils (%) (Auto) 0.2, Neutrophils # (Auto) 7.1, Lymphocytes # (Auto) 0.7L, Monocytes # (Auto) 0.2, Eosinophils # (Auto) 0.0, Basophils # (Auto) 0.0, Large Unclassified Cells % 1.7 , Large Unclassified Cells # 0.1, Anion Gap 9, Glomerular Filtration Rate 28.4L , Blood Urea Nitrogen 34#H, Creatinine 1.85H, Sodium Level 134L, Potassium Level 3.6, Chloride Level 93L, Carbon Dioxide Level 32, Calcium Level 9.6, Aspartate Amino Transf (AST/SGOT) 13L, Alanine Aminotransferase (ALT/SGPT) 21, Alkaline Phosphatase 94, Total Bilirubin 0.3, Total Protein 7.5, Albumin 2.4L, Magnesium Level 2.2, Albumin/Globulin Ratio 0.47L 10/12/16 11:33: Bedside Glucose (Misc Panel) 284H CBC/BMP Laboratory Tests 10/12/16 05:22 Red Blood Count 3.85 L, Mean Corpuscular Volume 92.4, Mean Corpuscular Hemoglobin 30.4, Mean Corpuscular Hemoglobin Concent 32.8, Red Cell Distribution Width 14.5, Neutrophils (%) (Auto) 87.0 H, Lymphocytes (%) (Auto) 8.6 L, Monocytes (%) (Auto) 2.3, Eosinophils (%) (Auto) 0.2, Basophils (%) (Auto ) 0.2, Neutrophils # (Auto) 7.1, Lymphocytes # (Auto) 0.7 L, Monocytes # (Auto) 0.2, Eosinophils # (Auto) 0.0, Basophils # (Auto) 0.0, Calcium Level 9.6, Aspartate Amino Transf (AST/SGOT) 13 L, Alanine Aminotransferase (ALT/SGPT) 21, Alkaline Phosphatase 94, Total Bilirubin 0.3, Total Protein 7.5, Albumin 2.4 L Microbiology Microbiology 10/10/16 Blood Culture - Preliminary, Resulted No growth after 24 hours . All specim... 10/10/16 Blood Culture - Preliminary, Resulted No growth after 24 hours . All specim... LUDA SHIELDS PA-C October 12, 2016 12:02 AIDAN DODSON MD October 12, 2016 16:37
[2016-10-12] MEDS: guaiFENesin DM LIQ 10ML UD PO PRN ×2 (12:33→20:18)
[2016-10-12 14:00] VITALS: BP 172/77
[2016-10-12] MEDS: LORazepam 1 MG TAB PO SCH (20:19)
[2016-10-12] MEDS: LEVEMIR (INSULIN DETEMIR) 1 UNITS/0.01ML SC SCH (20:20)
[2016-10-12] MEDS: ENOXAPARIN 30 MG/0.3 ML SYR (J1650) SC SCH (20:20)
[2016-10-12 22:00] VITALS: BP 156/96
[2016-10-13] MEDS: LEVALBUTEROL 1.25 MG/0.5 ML CONCENTRATE NEB INH SCH ×6 (04:00→23:50)
[2016-10-13] MEDS: IPRATROPIUM 0.02% SOLN 0.5MG/2.5 ML NEB INH SCH ×6 (04:00→23:50)
[2016-10-13 06:00] VITALS: BP 150/70
[2016-10-13] MEDS: methylPREDNISolone INJ 125 MG/2 ML VIAL (J2930) IV SCH (06:02)
[2016-10-13] MEDS: MOXIFLOXACIN HCL 400 MG in APPROPRIATE DILUENT 1 EA IV SCH (08:15)
[2016-10-13] MEDS: HumaLOG INSULIN (NovoLOG) PER UNIT SC SCH ×4 (08:16→20:24)
[2016-10-13] MEDS: CLOPIDOGREL 75 MG TAB PO SCH (08:18)
[2016-10-13] MEDS: ASCORBIC ACID 500 MG TAB PO SCH (08:18)
[2016-10-13] MEDS: DOCUSATE SODIUM 100 MG CAP PO SCH ×2 (08:19→20:22)
[2016-10-13] MEDS: OMEPRAZOLE 20 MG CAP PO SCH (08:19)
[2016-10-13] MEDS: buPROPion **XL** TABLET 150MG (WELLBUTRIN XL) PO SCH (08:19)
[2016-10-13] MEDS: HYDROXYCHLOROQUINE 200 MG TAB PO SCH (08:19)
[2016-10-13] MEDS: FERROUS SULFATE 325MG TAB PO SCH (08:19)
[2016-10-13] MEDS: SENNA 8.6 MG TAB (SENOKOT) PO PRN ×2 (08:24→20:22)
[2016-10-13] MEDS: amLODIPine 5 MG TAB PO SCH (08:24)
[2016-10-13] MEDS: POTASSIUM CHLORIDE 10 MEQ SR TABLET PO SCH (08:24)
[2016-10-13] MEDS: CARVedilol 6.25 MG TAB PO SCH ×2 (08:24→20:24)
[2016-10-13] MEDS: ISOSORBIDE MON. (IMDUR) 30 MG XR TAB PO SCH ×2 (08:24→20:23)
[2016-10-13] MEDS: SPIRONOLACTONE 25 MG TAB PO SCH (08:24)
[2016-10-13] MEDS: guaiFENesin DM LIQ 10ML UD PO PRN ×2 (08:39→20:23)
--- NOTE | 2016-10-13 10:23 | IPNPDOC ---
Subjective Date Seen The patient was seen on 10/13/16. Subjective Chief Complaint/HPI The patient is a 76-year-old female admitted with a reason for visit of Pneumonia. Events since last encounter Still with cough - feels like she is having trouble raising sputum. Has not ambulated much yet, Got up to bathroom for first time today Constitutional: Denies: Chills, Fever Pulmonary: Reports: Dyspnea (improving), Cough Cardiovascular: Denies: Chest Pain, Palpitations, Orthopnea Gastrointestinal: Denies: Nausea, Vomiting, Abdominal Pain, Diarrhea, Constipation Genitourinary: Denies: Dysuria, Frequency Objective Physical Examination General Exam: Positive: Alert, No Acute Distress (breathing appears comfortable ) Chest Exam: Positive: Diminished, Other (crackles left base > right) Heart Exam: Positive: Rate Normal, Normal S1, Normal S2, Negative: Murmurs Abdomen Exam: Positive: Normal bowel sounds Extremity Exam: Positive: Edema (trace edmea BL) Assessment /Plan Problems (1) Pneumonia Status: Acute Problem Text: 10/13 - D3 moxifloxacin - switch to po start Acapella Wean O2 - not usually on this at home Change to po prednisone 10/10/16 CT chest small RML infiltrate (2) COPD (chronic obstructive pulmonary disease) Status: Acute Problem Text: 10/13 - improved resp, Change to po prednisone, cont with nebs (3) CAD in [place] artery Status: Chronic Response to Treatment: Stable Problem Text: No active ischemia 10/10 serial CIP/T-I - (4) Diastolic CHF Status: Acute Problem Text: 10/13 - appears compensated on exam. Currently on Lasix 40 mgIV BID. Renal function was worsening yesterday. No labs today. Hold Lasix fornow until labs return and we wee what the renal function looks like. Of note; usual HD Lasix 40 BID/jared 25 QD (5) CKD (chronic kidney disease) stage 3, GFR 30-59 ml/min Problem Text: 10/13 - Creatinine up with diuresis yesterday to 1.85. Check lasb today. baseline cr 1.6 (6) Diabetes type 2, controlled Status: Chronic Response to Treatment: Stable Problem Text: Continues HD Lantus 50 qhs c SSNI BS mid-high 100s s hypos Plan/VTE VTE Prophylaxis Ordered?: Yes Disposition Get PT. Probable d/c home 10/14 VS, I&O, 24H, Fishbone Vital Signs/I&O Vital Signs Date Time Temp Pulse Resp B/P (MAP) Pulse Ox O2 Delivery O2 Flow Rate FiO2 10/13/16 08:24 148/56 10/13/16 08:24 73 10/13/16 06:00 97.4 19 96 Nasal Cannula 2.0 I&O- Last 24 Hours up to 6 AM 10/13/16 06:00 Intake Total 1570 ml Output Total 1950 ml Balance -380 ml Laboratory Data 24H LABS Laboratory Tests 2 10/12/16 11:33: Bedside Glucose (Misc Panel) 284H 10/12/16 16:33: Bedside Glucose (Misc Panel) 348H 10/12/16 20:39: Bedside Glucose (Misc Panel) 393H 10/13/16 06:35: Bedside Glucose (Misc Panel) 266H Microbiology Microbiology 10/10/16 Blood Culture - Preliminary, Resulted No Growth after 48 hours. All Specime... 10/10/16 Blood Culture - Preliminary, Resulted No Growth after 48 hours. All Specime... DEANGELO BENSON PA-C October 13, 2016 10:23
[2016-10-13 12:13] LABS: ALBUMIN 2.5 GM/DL (3.2-5.2); ALBUMIN/GLOBULIN RATIO 0.6 (1.00-1.93); BILIRUBIN,TOTAL 0.3 MG/DL (0.2-1.0); CALCIUM LEVEL 10.1 MG/DL (8.8-10.2); CREATININE FOR GFR 1.86 MG/DL (0.55-1.02); GLOMERULAR FILTRATION RATE 28.2 (>39); TOTAL PROTEIN 6.7 GM/DL (6.4-8.2)
[2016-10-13 14:00] VITALS: BP 132/68
[2016-10-13] MEDS: FUROSEMIDE 40 MG/4 ML VIAL (J1940) IV SCH (15:49)
[2016-10-13 20:21] VITALS: BP 160/60
[2016-10-13] MEDS: LORazepam 1 MG TAB PO SCH (20:22)
[2016-10-13] MEDS: ENOXAPARIN 30 MG/0.3 ML SYR (J1650) SC SCH (20:23)
[2016-10-13] MEDS: LEVEMIR (INSULIN DETEMIR) 1 UNITS/0.01ML SC SCH (20:24)
[2016-10-14] MEDS: LEVALBUTEROL 1.25 MG/0.5 ML CONCENTRATE NEB INH SCH ×6 (03:38→23:24)
[2016-10-14] MEDS: IPRATROPIUM 0.02% SOLN 0.5MG/2.5 ML NEB INH SCH ×6 (03:39→23:24)
[2016-10-14 06:00] VITALS: BP 125/64
[2016-10-14 06:17] LABS: MEAN CORPUSCULAR HEMOGLOBIN 29.6 pg (27.0-33.0); MEAN CORPUSCULAR HGB CONC 32.6 g/dl (32.0-36.5); MEAN CORPUSCULAR VOLUME 90.7 fl (80.0-96.0); RED CELL DISTRIBUTION WIDTH 14.5 % (11.5-14.5); WHITE BLOOD COUNT 12.3 K/mm3 (4.0-10.0)
[2016-10-14 06:29] LABS: CALCIUM LEVEL 9.3 MG/DL (8.8-10.2); CREATININE FOR GFR 1.54 MG/DL (0.55-1.02); GLOMERULAR FILTRATION RATE 35.1 (>39); POTASSIUM SERUM 3.4 MEQ/L (3.5-5.1)
[2016-10-14] MEDS: HumaLOG INSULIN (NovoLOG) PER UNIT SC SCH ×4 (07:30→21:28)
[2016-10-14] MEDS: SPIRONOLACTONE 25 MG TAB PO SCH (08:15)
[2016-10-14] MEDS: POTASSIUM CHLORIDE 10 MEQ SR TABLET PO SCH (08:15)
[2016-10-14] MEDS: DOCUSATE SODIUM 100 MG CAP PO SCH ×2 (08:15→21:26)
[2016-10-14] MEDS: CARVedilol 6.25 MG TAB PO SCH ×2 (08:16→21:27)
[2016-10-14] MEDS: OMEPRAZOLE 20 MG CAP PO SCH (08:16)
[2016-10-14] MEDS: CLOPIDOGREL 75 MG TAB PO SCH (08:16)
[2016-10-14] MEDS: FERROUS SULFATE 325MG TAB PO SCH (08:17)
[2016-10-14] MEDS: predniSONE 20 MG TAB PO SCH (08:17)
[2016-10-14] MEDS: ISOSORBIDE MON. (IMDUR) 30 MG XR TAB PO SCH ×2 (08:17→21:26)
[2016-10-14] MEDS: ASCORBIC ACID 500 MG TAB PO SCH (08:17)
[2016-10-14] MEDS: amLODIPine 5 MG TAB PO SCH (08:18)
[2016-10-14] MEDS: HYDROXYCHLOROQUINE 200 MG TAB PO SCH (08:22)
[2016-10-14] MEDS: buPROPion **XL** TABLET 150MG (WELLBUTRIN XL) PO SCH (08:22)
[2016-10-14] MEDS: guaiFENesin DM LIQ 10ML UD PO PRN ×2 (08:22→21:27)
[2016-10-14] MEDS ORDERED: MOXIFLOXACIN 400 MG TAB PO ONE (09:00)
[2016-10-14] MEDS: ONDANSETRON 4MG/2ML VIAL (J2405) IV PRN (09:50)
--- NOTE | 2016-10-14 10:23 | IPNPDOC ---
Subjective Date Seen The patient was seen on 10/14/16. Subjective Chief Complaint/HPI The patient is a 76-year-old female admitted with a reason for visit of Pneumonia. Events since last encounter More SOB overnight. Raising sputum now. Feels nauseated and tired Constitutional: Denies: Chills, Fever Pulmonary: Reports: Dyspnea, Cough Cardiovascular: Denies: Chest Pain, Palpitations Gastrointestinal: Reports: Nausea, Denies: Vomiting, Abdominal Pain, Diarrhea, Constipation Objective Physical Examination General Exam: Positive: Alert, Mild Distress (Sitting up in chair. Looks tired with mild dyspnea) Chest Exam: Positive: Clear to auscultation, Diminished, Negative: Rales, Rhonchi, Wheezing Heart Exam: Positive: Rate Normal, Regular Rhythm, Negative: Murmurs Abdomen Exam: Positive: Normal bowel sounds Extremity Exam: Negative: Edema Assessment /Plan Problems (1) Pneumonia Status: Acute Problem Text: 10/14 - More dyspnea today although lungs sound better. Unable to wean oxygen. Requiring 3 liters NC to maintain sats at 90% continue po Avelox, nebs and Acapella. 10/10/16 CT chest small RML infiltrate (2) COPD (chronic obstructive pulmonary disease) Status: Acute Problem Text: 10/14 - no wheezes on exam. Continue oral prednisone (3) CAD in [place] artery Status: Chronic Response to Treatment: Stable Problem Text: No active ischemia 10/10 serial CIP/T-I - (4) Diastolic CHF Status: Acute Problem Text: 10/14 - appears compensated on exam with Lasix on hold (5) CKD (chronic kidney disease) stage 3, GFR 30-59 ml/min Problem Text: 10/14 - Creatinine has returned to baseline with Lasix on hold (6) Diabetes type 2, controlled Status: Chronic Response to Treatment: Stable Problem Text: Continues HD Lantus 50 qhs c SSNI BS high - running 200s and 300s on prednisone. Expect improvement when prednisone completed Plan/VTE VTE Prophylaxis Ordered?: Yes VS, I&O, 24H, Fishbone Vital Signs/I&O Vital Signs Date Time Temp Pulse Resp B/P (MAP) Pulse Ox O2 Delivery O2 Flow Rate FiO2 10/14/16 08:18 61 140/60 10/14/16 06:00 97.2 20 90 Nasal Cannula 3.0 I&O- Last 24 Hours up to 6 AM 10/14/16 06:00 Intake Total 760 ml Output Total 1450 ml Balance -690 ml Laboratory Data 24H LABS Laboratory Tests 2 10/13/16 10:56: Anion Gap 11, Glomerular Filtration Rate 28.2L, Blood Urea Nitrogen 41H, Creatinine 1.86H, Sodium Level 137, Potassium Level 4.0, Chloride Level 95L, Carbon Dioxide Level 31, Calcium Level 10.1, Aspartate Amino Transf (AST/SGOT) 15, Alanine Aminotransferase (ALT/SGPT) 23, Alkaline Phosphatase 84, Total Bilirubin 0.3, Total Protein 6.7, Albumin 2.5L, Albumin/Globulin Ratio 0.60L 10/13/16 11:41: Bedside Glucose (Misc Panel) 237H 10/13/16 16:23: Bedside Glucose (Misc Panel) 278H 10/13/16 20:12: Bedside Glucose (Misc Panel) 322H 10/14/16 05:48: Anion Gap 6L, Glomerular Filtration Rate 35.1L, Blood Urea Nitrogen 40H, Creatinine 1.54H, Sodium Level 140, Potassium Level 3.4L, Chloride Level 99, Carbon Dioxide Level 35H, Calcium Level 9.3 CBC/BMP Laboratory Tests 10/13/16 10:56 Calcium Level 10.1, Aspartate Amino Transf (AST/SGOT) 15, Alanine Aminotransferase (ALT/SGPT) 23, Alkaline Phosphatase 84, Total Bilirubin 0.3, Total Protein 6.7, Albumin 2.5 L 10/14/16 05:48 Calcium Level 9.3, Red Blood Count 3.70 L, Mean Corpuscular Volume 90.7, Mean Corpuscular Hemoglobin 29.6, Mean Corpuscular Hemoglobin Concent 32.6, Red Cell Distribution Width 14.5 Microbiology Microbiology 10/10/16 Blood Culture - Preliminary, Resulted No Growth after 72 hours. All specime... 10/10/16 Blood Culture - Preliminary, Resulted No Growth after 72 hours. All specime... DEANGELO BENSON PA-C October 14, 2016 10:23
[2016-10-14 14:00] VITALS: BP 158/72
[2016-10-14] MEDS: LEVEMIR (INSULIN DETEMIR) 1 UNITS/0.01ML SC SCH (21:00)
[2016-10-14] MEDS: ENOXAPARIN 30 MG/0.3 ML SYR (J1650) SC SCH (21:25)
[2016-10-14] MEDS: LORazepam 1 MG TAB PO SCH (21:26)
[2016-10-14] MEDS: SENNA 8.6 MG TAB (SENOKOT) PO PRN (21:30)
[2016-10-14 22:00] VITALS: BP 166/72
[2016-10-15 00:07] LABS: ORGANISM ID Not indicated. (.); SPECIMEN SOURCE Urine (.)
[2016-10-15] MEDS: IPRATROPIUM 0.02% SOLN 0.5MG/2.5 ML NEB INH SCH ×2 (02:34→07:18)
[2016-10-15] MEDS: LEVALBUTEROL 1.25 MG/0.5 ML CONCENTRATE NEB INH SCH ×2 (02:34→07:18)
[2016-10-15 06:00] VITALS: BP 154/70
[2016-10-15] MEDS ORDERED: MOXIFLOXACIN 400 MG TAB PO SCH (06:00)
[2016-10-15] MEDS: HumaLOG INSULIN (NovoLOG) PER UNIT SC SCH (07:30)
[2016-10-15] MEDS: CLOPIDOGREL 75 MG TAB PO SCH (08:38)
[2016-10-15] MEDS: POTASSIUM CHLORIDE 10 MEQ SR TABLET PO SCH (08:39)
[2016-10-15] MEDS: SPIRONOLACTONE 25 MG TAB PO SCH (08:39)
[2016-10-15] MEDS: DOCUSATE SODIUM 100 MG CAP PO SCH (08:39)
[2016-10-15] MEDS: ASCORBIC ACID 500 MG TAB PO SCH (08:39)
[2016-10-15] MEDS: buPROPion **XL** TABLET 150MG (WELLBUTRIN XL) PO SCH (08:39)
[2016-10-15] MEDS: OMEPRAZOLE 20 MG CAP PO SCH (08:39)
[2016-10-15] MEDS: HYDROXYCHLOROQUINE 200 MG TAB PO SCH (08:39)
[2016-10-15] MEDS: FERROUS SULFATE 325MG TAB PO SCH (08:39)
[2016-10-15] MEDS: predniSONE 20 MG TAB PO SCH (08:39)
[2016-10-15] MEDS: ISOSORBIDE MON. (IMDUR) 30 MG XR TAB PO SCH (08:44)
[2016-10-15] MEDS: amLODIPine 5 MG TAB PO SCH (08:44)
[2016-10-15 08:45] VITALS: BP 158/64
[2016-10-15] MEDS: CARVedilol 6.25 MG TAB PO SCH (08:45)
[2016-10-15] MEDS ORDERED: PRED20TA PO (09:48)
[2016-10-15] MEDS ORDERED: AVEL1TAB PO (09:48)
[2016-10-15] MEDS ORDERED: LEVA500T PO (10:23)
--- NOTE | 2016-10-15 11:16 | DSES ---
DATE OF ADMISSION: 10/10/2016 DATE OF DISCHARGE: BRIEF HISTORY AND PHYSICAL: The patient is a 76-year-old patient of Dr. Hughes with a history of chronic diastolic congestive heart failure who presents with shortness of breath, had gained 5 pounds in the last month but had lost 3 to 4 pounds due to decreased appetite over the last week. Was having some chills. Came to emergency room and found to have oxygen saturations of 81% with a CT of the chest showing right middle lobe consolidation compatible with pneumonia and central lobular emphysema. PAST MEDICAL HISTORY: Significant for coronary artery disease, Takotsubo cardiomyopathy in April 2014 that resolved, systemic hypertension, hypertensive heart disease, diastolic congestive heart failure, frequent premature ventricular contractions (PVCs), hypercholesterolemia, remote history of smoking, diabetes mellitus type 2, obesity, chronic kidney disease, reflux, depression, seasonal allergies, left breast cancer status post lumpectomy and radiation, migraine headaches and biapical central lobular emphysema. LABORATORY DATA: Pertinent labs on admission: White count 13, hemoglobin 12, platelets 311,000. Sodium 132, potassium 3.5, BUN 21, creatinine 1.82. CK 120, MB 1, troponin 0.05, BNP 531. CT of the chest showed right middle lobe consolidation compatible with pneumonia, biapical central lobular emphysema, trace bilateral effusions versus pleural thickening, 3 mm nonobstructing right renal calculus. HOSPITAL COURSE: The patient is admitted for a right middle lobe community-acquired pneumonia with risk factors for marcescens pseudomonas, therefore initially treated with Avelox due to her allergy to amoxicillin. Sputum cultures were ordered but she was unable to produce sputum. Legionella and urine strep antigens were negative. She was placed on supplemental oxygen for acute hypoxic respiratory failure and oxygen saturations were maintained in the low 90s on 3 liters nasal cannula. She was also given IV Solu-Medrol. Her respiratory status gradually improved, reported less dyspnea, able to ambulate without significant shortness of breath, but will go home with home health aide to assist with activities of daily living and she is ambulating with a walker. She had trouble maintaining her oxygen levels on room air and therefore will be discharged home with oxygen 3 liters nasal cannula. Oxygen saturations were 82% on room air on the date of discharge, but 93% with 3 liters nasal cannula. Suspect she will remain on oxygen for a period of time until her pneumonia fully resolves and she may benefit from a followup chest x-ray or CT to follow this right middle lobe consolidation to resolution. Diastolic congestive heart failure. She was given IV Lasix initially but her renal function declined, and her sodium dropped, and she looked dry. The Lasix was held, but will be restarted at the time of discharge as her renal function has returned to baseline. She remains on spironolactone and is compensated at the time of discharge. Emphysema. She has been weaned to oral prednisone and will complete a 5-day course of oral prednisone. Continue with nebulized bronchodilators and oxygen therapy as above. Diabetes mellitus type 2. She remained on her usual home dose of Levemir. Blood sugars are variable, were high related to her steroids. She will go home on her usual dose of Levemir Coronary artery disease and hypertensive heart disease. Blood pressure remained fairly stable throughout the hospitalization on her usual medications. Chronic kidney disease. Again, she developed some acute kidney injury with over diuresis and now her renal function has returned to baseline with a creatinine 1.54 at discharge. DISPOSITION: The patient is stable for discharge home. Followup with Dr. Hughes early next week. Diet is 2 gram sodium consistent carbohydrate. Activity is as tolerated with a walker. Oxygen 3 liters nasal cannula. Home health aide has been ordered. MEDICATIONS: - Avelox 400 mg daily for 10 days - prednisone 40 mg daily for 5 days - albuterol every 4 hours as needed for shortness of breath - amlodipine 5 mg daily - vitamin C 500 mg daily - bupropion 150 mg daily plus 300 mg daily - carvedilol 18.75 mg twice a day - clopidogrel 75 mg daily - iron sulfate 325 mg daily - furosemide 40 mg twice a day - hydroxychloroquine 200 mg daily - sliding-scale insulin before meals - Lantus 50 units at bedtime - isosorbide mononitrate 30 mg twice a day - lorazepam 1 mg at bedtime - nitroglycerin sublingual 0.4 mg every 5 minutes as needed for chest pain - omeprazole 40 mg daily - potassium 20 mEq daily - spirolactone 25 mg daily DISCHARGE DIAGNOSES 1. Acute hypoxemic respiratory failure. 2. Right middle lobe consolidation secondary to community-acquired pneumonia. 3. Diastolic congestive heart failure. 4. Acute on chronic kidney disease. 5. Diabetes mellitus type 2. 6. Emphysema.
== END 2016-10-15 12:28 | disposition home health service (06) | DRG 190 ==
LOC: M ED 19:01 → M ED INP 21:12 → M MSPAV 23:44
PROVIDERS: ADMIT General Practice; ATTEND Family Medicine
DX: J43.9 Emphysema, unspecified (principal); J18.9 Pneumonia, unspecified organism; J96.01 Acute respiratory failure with hypoxia; I50.32 Chronic diastolic (congestive) heart failure; I13.2 Hypertensive heart and chronic kidney disease with heart failure and with stage 5 chronic kidney disease, or end stage renal disease; I25.10 Atherosclerotic heart disease of native coronary artery without angina pectoris; E78.00 Pure hypercholesterolemia, unspecified; E11.9 Type 2 diabetes mellitus without complications; Z87.891 Personal history of nicotine dependence; E66.9 Obesity, unspecified; N18.9 Chronic kidney disease, unspecified; K21.9 Gastro-esophageal reflux disease without esophagitis; F32.9 Major depressive disorder, single episode, unspecified; J30.9 Allergic rhinitis, unspecified; G43.909 Migraine, unspecified, not intractable, without status migrainosus; Z85.3 Personal history of malignant neoplasm of breast; N20.0 Calculus of kidney

== ENCOUNTER → 2016-10-20 | Outpatient (CLI) | payer OTHER ==
[~2016-10-20] MED LIST changes: +AVEL1TAB PO; +FERR325T3 PO; +HYDR200T3 PO; +ISOS30TA4 PO; +LEVA500T PO; +POTA1TAB14 PO; +PRED20TA PO; +PRED25TA PO; +VITA-130 PO
--- NOTE | 2016-10-20 22:36 | REP ---
Clinical: Constipation. Technique: Two supine views of the abdomen and pelvis. Findings: Moderate to significant fecal stasis is appreciated and consistent with a history of constipation. No bowel obstruction or perforation. Evidence for prior cholecystectomy. No organomegaly. Skeletal structures demonstrate advanced degenerative changes and chronic dextroconvex scoliosis. Impression: Moderate to significant fecal stasis suggested. No acute obstruction or perforation. Degenerative changes the musculoskeletal structures. Signed by Vivek Gaona MD 10/20/2016 10:28 P
== END ==
LOC: M CLY 15:01
PROVIDERS: ATTEND Family Medicine
DX: K59.00 Constipation, unspecified (principal)
CPT/HCPCS: 74000; G0463

== ENCOUNTER → 2016-10-23 | Outpatient (REF) | payer OTHER | LOC: M SFHCCLAY 10:57 | PROVIDERS: ATTEND Nurse Practitioner Family | DX: N76.0 Acute vaginitis (principal) ==

== ENCOUNTER → 2016-11-03 | Outpatient (CLI) | payer OTHER ==
[~2016-11-03] MED LIST changes: -AVEL1TAB PO; +AVEL1TAB3 PO; +LEVA1TAB2 PO; -LEVA500T PO; +METO1TAB32 PO; -METO25TA74 PO; -VITA-130 PO; -VITA100037 PO; +VITA100067 PO; +VITA500T PO
--- NOTE | 2016-11-04 01:29 | REP ---
Clinical: Right middle lobe pneumonia. Technique: PA and lateral. Comparison: 10/10/2016. Findings: Mediastinum and cardiac silhouette are within normal limits and stable. The lung luna demonstrate diffuse chronic interstitial changes including scattered linear fibroatelectatic changes primarily involving the right mid lung zone. Previously noted right middle lobe infiltrate appears to have resolved. No obvious acute pneumonia. No effusion. No pneumothorax. Skeletal structures demonstrate osteopenia and degenerative changes. Impression: Diffuse chronic interstitial and scattered fibroatelectatic changes. Previously noted right middle lobe infiltrate appears to have resolved. Signed by Vivek Gaona MD 11/04/2016 01:21 A
== END ==
LOC: M CLY 11:47
PROVIDERS: ATTEND Family Medicine
DX: J18.1 Lobar pneumonia, unspecified organism (principal); J98.4 Other disorders of lung
CPT/HCPCS: 71020; G0463

== ENCOUNTER → 2016-11-19 | Outpatient (REF) | payer OTHER ==
[2016-11-19 12:17] LABS: ALBUMIN 3.1 GM/DL (3.2-5.2); CREATININE FOR GFR 1.75 MG/DL (0.55-1.02); GLOMERULAR FILTRATION RATE 30.2 (>39); PHOSPHORUS LEVEL 3.2 MG/DL (2.5-4.9); POTASSIUM SERUM 3.8 MEQ/L (3.5-5.1)
== END ==
LOC: M LABDRAWC 11:38
PROVIDERS: ATTEND Physician Assistant
DX: Z01.818 Encounter for other preprocedural examination (principal); H26.9 Unspecified cataract; I50.32 Chronic diastolic (congestive) heart failure; E78.5 Hyperlipidemia, unspecified; M51.16 Intervertebral disc disorders with radiculopathy, lumbar region; E11.8 Type 2 diabetes mellitus with unspecified complications
CPT/HCPCS: 36415; 80069; G0463

== ENCOUNTER → 2016-11-25 | Day surgery (SDC) | payer OTHER ==
[~2016-11-25] VITALS: Ht 165.1 cm; Wt 103.4 kg
[~2016-11-25] MED LIST changes: +ACETAMINOPHEN 325 MG TAB PO PRN; +ACETYLCHOLINE OPHTH SOLN 1% 2ML (MIOCHOL-E) As Ordered ONE; +AcetaZOLAMIDE 500 MG ER CAP PO ONE; +BALANCED SALT IRRIGATION SOLUTION 500ML BAG (FOR OR EYE MACHINE) As Ordered ONE; +CARVedilol 6.25 MG TAB As Ordered ONE; +CARVedilol 6.25 MG TAB PO ONE; +CEFUROXIME 1MG/0.1ML INTRACAMERAL INJ As Ordered ONE; +CYCLOPENTOLATE 2% OPHTH SOLN 2ML BTL OD ONE; +HEALON DUET (HEALON 10MG/ML 0.55ML & HEALON ENDOCOAT 30MG/ML 0.85ML) As Ordered ONE; +KETOROLAC 0.5% OPHTH SOLN OD ONE; +LIDOCAINE 1% SDV 5 ML VIAL As Ordered ONE; +LIDOCAINE 1% SDV 5 ML VIAL SC ONE; +LIDOCAINE 4% INJ 5 ML AMP OU ONE; +LR 1,000 ML IV SCH; +MIDAZOLAM INJ 2 MG/2 ML VIAL (J2250) As Ordered ONE; +OFLOXACIN 0.3 % (OCUFLOX) OPTH SOL 5ML OD ONE; +PHENYLEPHRINE 2.5% OPHTH SOL 2ML As Ordered ONE; +PHENYLEPHRINE 2.5% OPHTH SOL 2ML OD ONE; +POVIDONE-IODINE 5% OPHTH PREP SOL 30ML As Ordered ONE; +PROPARACAINE 0.5% OPHTH SOL 15ML OD PRN; +TRIMETHOBENZAMIDE 300 MG CAP PO PRN; +TROPICAMIDE 1% OPHTH SOLN 2ML OD ONE; +fentaNYL 100 MCG/2 ML INJECTION (J3010) As Ordered ONE
[2016-11-25 08:35] VITALS: BP 144/80
--- NOTE | 2016-11-25 13:10 | RO ---
DATE OF PROCEDURE: 11/25/2016 PREPROCEDURE DIAGNOSIS: Age related nuclear cataract right eye. POSTPROCEDURE DIAGNOSIS: Age related nuclear cataract right eye. PROCEDURE: Phacoemulsification and posterior chamber intraocular lens implantation, right eye. The lens used was [id number], 19.5 diopter. SURGEON: Katie Rivas MD APPEALS AND GENERALIST CLERK: ANESTHESIA: Topical with sedation. DESCRIPTION OF PROCEDURE: The patient was prepped and draped in the usual fashion. A lid speculum was placed between the lids. The eye was fixated. A stab incision was made to the anterior chamber, and 1% non-preserved lidocaine was instilled. Then, viscoelastic was instilled. The eye was re-fixated. A 2.75 mm sapphire keratome was used to make a clear corneal temporal limbal incision. Capsulorrhexis was begun with a 30-gauge bent needle and then carried out in a circular fashion with capsulorrhexis forceps. The lens was hydrodissected, and then the phacoemulsification unit was used to make a groove in the nucleus in two meridians. The nucleus was then cracked into four quadrants. Each quadrant was removed with the phacoemulsification unit. Any remaining cortex was removed with the irrigation and aspiration (I and A) unit. Capsular bag was refilled with viscoelastic. A posterior chamber intraocular lens was placed in the capsular bag without difficulty. Any remaining viscoelastic was removed with the I and A unit. The wound was hydrated, and Miochol and cefuroxime were instilled into the anterior chamber. The patient tolerated the procedure well and went to the recovery room in stable condition.
== END | disposition home or self-care (01) ==
LOC: M SDC 05:51
PROVIDERS: ATTEND Ophthalmology
DX: H25.11 Age-related nuclear cataract, right eye (principal); I10 Essential (primary) hypertension; E78.00 Pure hypercholesterolemia, unspecified; E10.9 Type 1 diabetes mellitus without complications; K21.9 Gastro-esophageal reflux disease without esophagitis; D64.9 Anemia, unspecified; R29.898 Other symptoms and signs involving the musculoskeletal system; M12.9 Arthropathy, unspecified; M54.9 Dorsalgia, unspecified; M51.16 Intervertebral disc disorders with radiculopathy, lumbar region; F32.9 Major depressive disorder, single episode, unspecified; R51 Headache; E78.5 Hyperlipidemia, unspecified; E11.8 Type 2 diabetes mellitus with unspecified complications; N39.3 Stress incontinence (female) (male); Z87.891 Personal history of nicotine dependence; Z96.653 Presence of artificial knee joint, bilateral; Z88.1 Allergy status to other antibiotic agents; Z88.5 Allergy status to narcotic agent; Z91.09 Other allergy status, other than to drugs and biological substances; Z91.018 Allergy to other foods; Z79.899 Other long term (current) drug therapy; Z79.01 Long term (current) use of anticoagulants; Z79.4 Long term (current) use of insulin; Z90.710 Acquired absence of both cervix and uterus; Z92.3 Personal history of irradiation; Z85.3 Personal history of malignant neoplasm of breast; Z95.5 Presence of coronary angioplasty implant and graft; Z87.09 Personal history of other diseases of the respiratory system
CPT/HCPCS: 66984; J2250; J3010; V2632

== ENCOUNTER → 2016-12-02 | Day surgery (SDC) | payer OTHER ==
[~2016-12-02] VITALS: Ht 168.9 cm; Wt 102.5 kg
[~2016-12-02] MED LIST changes: -CARVedilol 6.25 MG TAB As Ordered ONE; -CARVedilol 6.25 MG TAB PO ONE; +CYCLOPENTOLATE 2% OPHTH SOLN 2ML BTL As Ordered ONE; -CYCLOPENTOLATE 2% OPHTH SOLN 2ML BTL OD ONE; +CYCLOPENTOLATE 2% OPHTH SOLN 2ML BTL OS ONE; +D5W/0.2% SODIUM CHLORIDE 250 ML IV ONE; -KETOROLAC 0.5% OPHTH SOLN OD ONE; +KETOROLAC 0.5% OPHTH SOLN OS ONE; -LIDOCAINE 1% SDV 5 ML VIAL SC ONE; +LR 1,000 ML IV ONE; -LR 1,000 ML IV SCH; +OFLOXACIN 0.3 % (OCUFLOX) OPTH SOL 5ML As Ordered ONE; -OFLOXACIN 0.3 % (OCUFLOX) OPTH SOL 5ML OD ONE; +OFLOXACIN 0.3 % (OCUFLOX) OPTH SOL 5ML OS ONE; -PHENYLEPHRINE 2.5% OPHTH SOL 2ML OD ONE; +PHENYLEPHRINE 2.5% OPHTH SOL 2ML OS ONE; -PROPARACAINE 0.5% OPHTH SOL 15ML OD PRN; +PROPARACAINE 0.5% OPHTH SOL 15ML OS PRN; +TROPICAMIDE 1% OPHTH SOLN 2ML As Ordered ONE; -TROPICAMIDE 1% OPHTH SOLN 2ML OD ONE; +TROPICAMIDE 1% OPHTH SOLN 2ML OS ONE
[2016-12-02 10:50] VITALS: BP 191/80
--- NOTE | 2016-12-03 11:16 | RO ---
DATE OF PROCEDURE: 12/02/2016 PREPROCEDURE DIAGNOSIS: Age related nuclear cataract, left eye. POSTPROCEDURE DIAGNOSIS: Age related nuclear cataract, left eye. PROCEDURE: Phacoemulsification and posterior chamber intraocular lens implantation, left eye. The lens used was [id number], 19.0 diopters. SURGEON: Katie Rivas MD COOK BOAT: ANESTHESIA: Topical with sedation. DESCRIPTION OF PROCEDURE: The patient was prepped and draped in the usual fashion. A lid speculum was placed between the lids. The eye was fixated. A stab incision was made to the anterior chamber, and 1% non-preserved lidocaine was instilled. Then, viscoelastic was instilled. The eye was re-fixated. A 2.75 mm sapphire keratome was used to make a clear corneal temporal limbal incision. Capsulorrhexis was begun with a 30-gauge bent needle and then carried out in a circular fashion with capsulorrhexis forceps. The lens was hydrodissected, and then the phacoemulsification unit was used to make a groove in the nucleus in two meridians. The nucleus was then cracked into four quadrants. Each quadrant was removed with the phacoemulsification unit. Any remaining cortex was removed with the irrigation and aspiration (I and A) unit. Capsular bag was refilled with viscoelastic. A posterior chamber intraocular lens was placed in the capsular bag without difficulty. Any remaining viscoelastic was removed with the I and A unit. The wound was hydrated, and Miochol and cefuroxime were instilled into the anterior chamber. The patient tolerated the procedure well and went to the recovery room in stable condition.
== END | disposition home or self-care (01) ==
LOC: M SDC 07:49
PROVIDERS: ATTEND Ophthalmology
DX: H25.12 Age-related nuclear cataract, left eye (principal); I25.10 Atherosclerotic heart disease of native coronary artery without angina pectoris; Z98.61 Coronary angioplasty status; E10.9 Type 1 diabetes mellitus without complications; Z79.4 Long term (current) use of insulin; I10 Essential (primary) hypertension; F32.9 Major depressive disorder, single episode, unspecified; K21.9 Gastro-esophageal reflux disease without esophagitis; D64.9 Anemia, unspecified; E78.5 Hyperlipidemia, unspecified; Z85.3 Personal history of malignant neoplasm of breast; Z92.3 Personal history of irradiation; Z88.0 Allergy status to penicillin; Z88.8 Allergy status to other drugs, medicaments and biological substances; Z79.82 Long term (current) use of aspirin; Z79.899 Other long term (current) drug therapy
CPT/HCPCS: 66984; J2250; J3010; V2632

== ENCOUNTER → 2016-12-24 | Outpatient (REF) | payer OTHER ==
[~2016-12-24] MED LIST changes: -ACETAMINOPHEN 325 MG TAB PO PRN; -ACETYLCHOLINE OPHTH SOLN 1% 2ML (MIOCHOL-E) As Ordered ONE; -AcetaZOLAMIDE 500 MG ER CAP PO ONE; -BALANCED SALT IRRIGATION SOLUTION 500ML BAG (FOR OR EYE MACHINE) As Ordered ONE; -CEFUROXIME 1MG/0.1ML INTRACAMERAL INJ As Ordered ONE; -CYCLOPENTOLATE 2% OPHTH SOLN 2ML BTL As Ordered ONE; -CYCLOPENTOLATE 2% OPHTH SOLN 2ML BTL OS ONE; -D5W/0.2% SODIUM CHLORIDE 250 ML IV ONE; -HEALON DUET (HEALON 10MG/ML 0.55ML & HEALON ENDOCOAT 30MG/ML 0.85ML) As Ordered ONE; -KETOROLAC 0.5% OPHTH SOLN OS ONE; -LIDOCAINE 1% SDV 5 ML VIAL As Ordered ONE; -LIDOCAINE 4% INJ 5 ML AMP OU ONE; -LR 1,000 ML IV ONE; -MIDAZOLAM INJ 2 MG/2 ML VIAL (J2250) As Ordered ONE; -OFLOXACIN 0.3 % (OCUFLOX) OPTH SOL 5ML As Ordered ONE; -OFLOXACIN 0.3 % (OCUFLOX) OPTH SOL 5ML OS ONE; -PHENYLEPHRINE 2.5% OPHTH SOL 2ML As Ordered ONE; -PHENYLEPHRINE 2.5% OPHTH SOL 2ML OS ONE; -POVIDONE-IODINE 5% OPHTH PREP SOL 30ML As Ordered ONE; -PROPARACAINE 0.5% OPHTH SOL 15ML OS PRN; -TRIMETHOBENZAMIDE 300 MG CAP PO PRN; -TROPICAMIDE 1% OPHTH SOLN 2ML As Ordered ONE; -TROPICAMIDE 1% OPHTH SOLN 2ML OS ONE; -fentaNYL 100 MCG/2 ML INJECTION (J3010) As Ordered ONE
[2016-12-24 12:00] LABS: ALBUMIN 3.2 GM/DL (3.2-5.2); CALCIUM LEVEL 9.2 MG/DL (8.8-10.2); CREATININE FOR GFR 1.42 MG/DL (0.55-1.02); GLOMERULAR FILTRATION RATE 38.5 (>39); MAGNESIUM LEVEL 2.2 MG/DL (1.8-2.4); PHOSPHORUS LEVEL 3.8 MG/DL (2.5-4.9); POTASSIUM SERUM 3.3 MEQ/L (3.5-5.1)
== END ==
LOC: M LABDRAWC 11:01
PROVIDERS: ATTEND Physician Assistant
DX: I50.32 Chronic diastolic (congestive) heart failure (principal); E83.41 Hypermagnesemia

== ENCOUNTER → 2017-02-08 | Outpatient (REF) | payer OTHER ==
[2017-02-08 11:33] LABS: ALBUMIN 3.3 GM/DL (3.2-5.2); CALCIUM LEVEL 8.9 MG/DL (8.8-10.2); CREATININE FOR GFR 1.59 MG/DL (0.55-1.02); GLOMERULAR FILTRATION RATE 33.8 (>39); PHOSPHORUS LEVEL 3.5 MG/DL (2.5-4.9); POTASSIUM SERUM 3.6 MEQ/L (3.5-5.1)
== END ==
LOC: M SFHCCLAY 06:57
PROVIDERS: ATTEND Family Medicine
DX: R60.9 Edema, unspecified (principal)

== ENCOUNTER → 2017-02-25 | Outpatient (CLI) | payer OTHER ==
--- NOTE | 2017-02-25 13:06 | REP ---
Bilateral screening digital mammogram: The patient indicates that she had a clinical breast exam in February of 2017. The patient has a history of left breast carcinoma in 2013. Comparison is 02/24/2016. There is very dense heterogeneous breast parenchyma, not significantly changed. There are bilateral benign calcifications. There is a spiculated appearing lesion anteriorly in the left breast on the MLO view only as a change from the comparison study. There is a spiculated appearing lesion anteriorly in the right breast on both MLO and CC views. There are benign calcifications bilaterally. Impression: BI-RADS category 0, incomplete. Additional imaging evaluation is needed. The patient should return for spot compression views of each breast. The decision for additional views, ultrasound or MRI will be based on findings on these initial follow-up views. This mammogram was interpreted with the aid of an FDA-approved computer-aided detection system. A. Negative x-ray reports should not delay biopsy if a dominant or clinically suspicious mass is present. B. Four to eight percent of cancers are not identified by x-ray. C. Adenosis and dense breasts may obscure an underlying neoplasm. The patient letter being requested is M0. Unreviewed MTDD
--- NOTE | 2017-02-25 13:11 | REP ---
Duplex extremity venous ultrasound: Right lower extremity. History: Right leg swelling. Question DVT or Juarez's cyst. Findings: The deep veins are anechoic and fully compressible from the groin to the popliteal fossa in the right lower extremity. Color flow imaging is homogeneous. Spectral Doppler interrogation demonstrates intact respiratory variation in flow and normal manual augmentation of flow. There is no evidence of deep vein thrombosis. Imaging of the popliteal fossa shows some knee joint fluid but no evidence of Juarez's cyst. Impression: Negative right lower extremity duplex venous ultrasound. No evidence of deep vein thrombosis. No evidence of Juarez's cyst. Signed by Thanh Joaquin MD 02/25/2017 05:20 P
== END ==
LOC: M RAD 10:40
PROVIDERS: ATTEND Family Medicine
DX: R92.8 Other abnormal and inconclusive findings on diagnostic imaging of breast (principal); M79.89 Other specified soft tissue disorders; Z85.3 Personal history of malignant neoplasm of breast
CPT/HCPCS: 93971; G0202

== ENCOUNTER → 2017-03-02 | Outpatient (CLI) | payer OTHER ==
--- NOTE | 2017-03-03 06:49 | RADONC ---
RADIATION ONCOLOGY DATE: 03/02/2017 CHART NUMBER: [id number] DIAGNOSIS: Left breast cancer. STAGE: 0, [id number]. ECOG PERFORMANCE STATUS: 0 FOLLOWUP NOTE: Ms. 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 The patient presents today reporting that she is doing quite well with no complaints at this time related to her radiation therapy or disease. She has no breast or bone pain. REVIEW OF SYSTEMS: The patient's review of systems is noncontributory. The patient's review of systems is noncontributory. She denies nausea, vomiting, fevers, chills, night sweats, diplopia, headaches, anxiety or depression, anorexia, weight loss, visual disturbances, chest pain, urinary or bowel difficulties, bone pain, or neurological problems. PHYSICAL EXAMINATION The patient is a well-developed, well-nourished white female in no acute distress. HEENT exam is normocephalic, atraumatic. Extraocular movements are intact. There is no palpable cervical, supraclavicular, infraclavicular, axillary, or inguinal lymphadenopathy present. Lungs are clear to auscultation and percussion. Heart has a regular rate and rhythm. Abdomen is benign with no hepatosplenomegaly, masses, or tenderness. Breast examination reveals no masses or discharge bilaterally. Skeletal examination reveals no tenderness to pressure or percussion of the bony skeleton. Extremities reveal no clubbing, cyanosis, or edema. Neurologic exam is grossly intact, as is the remainder of the physical examination. ASSESSMENT: The patient is clinically MIRIAN at this time and will be seen by us again in 6 months for further followup. She will also continue to be followed by her other physicians as well. Dr. Hughes has ordered a mammogram which is incomplete. We await the repeat and final results of her mammographic readings. cc: Alejandro Hughes MD
== END ==
LOC: M ONCR 08:36
PROVIDERS: ATTEND Radiology Radiation Oncology
DX: D05.11 Intraductal carcinoma in situ of right breast (principal)

== ENCOUNTER → 2017-03-08 | Outpatient (CLI) | payer OTHER ==
--- NOTE | 2017-03-08 11:39 | REP ---
BILATERAL DIAGNOSTIC MAMMOGRAM: Bilateral diagnostic mammogram performed with multiple spot compression views obtained. Comparison made with recent mammogram of 02/25/2017 as well as multiple other prior exams. There is a history of left breast cancer 3 years ago. Breast parenchymal is moderately dense bilaterally in a heterogeneous pattern. However, on today's spot compression views, there is no change in the parenchymal pattern compared to the other prior exams. There is no new mass or architectural distortion bilaterally. Course benign type calcifications are present. IMPRESSION: No persistent nodule or architectural distortion on today's spot compression views. Findings are ACR 2 benign. Recommend followup mammogram in 1 year. BI-RADS/ACR category 2 mammogram. Benign finding(s). Routine annual screening mammography (for women over age 40). This mammogram was interpreted with the aid of an FDA-approved computer-aided detection system. A. Negative x-ray reports should not delay biopsy if a dominant or clinically suspicious mass is present. B. Four to eight percent of cancers are not identified by x-ray. C. Adenosis and dense breasts may obscure an underlying neoplasm. The patient letter being requested is M1. Signed by Abdoul Galindo MD 03/09/2017 07:51 P
== END ==
LOC: M RAD 10:34
PROVIDERS: ATTEND Family Medicine
DX: Z12.31 Encounter for screening mammogram for malignant neoplasm of breast (principal); Z85.3 Personal history of malignant neoplasm of breast

== ENCOUNTER → 2017-03-30 | Outpatient (CLI) | payer OTHER ==
--- NOTE | 2017-03-30 14:36 | REP ---
Left rib series and PA chest: Left ribs four views: There is no rib fracture or other rib abnormality. PA chest: Comparison is 11/03/2016. There is no pneumothorax, hemothorax or pulmonary contusion. There is discoid atelectasis inferiorly in the right lung. There is scoliosis convex left in the lumbar spine and lower thoracic spine. The cardiac size is mildly enlarged, unchanged. The anca, mediastinum, bony thorax are otherwise unremarkable. Impression: Discoid atelectasis inferiorly in the right lung. Mild cardiomegaly. Surgical clips are incidentally noted in the abdominal right upper quadrant. Signed by Abdoul Turner MD 03/30/2017 02:27 P
== END ==
LOC: M CLY 12:50
PROVIDERS: ATTEND Family Medicine
DX: M94.0 Chondrocostal junction syndrome [Tietze] (principal); J98.11 Atelectasis; I51.7 Cardiomegaly; M41.26 Other idiopathic scoliosis, lumbar region; M41.27 Other idiopathic scoliosis, lumbosacral region
CPT/HCPCS: 71101; G0463

== ENCOUNTER → 2017-04-26 | Outpatient (CLI) | payer OTHER ==
--- NOTE | 2017-04-27 04:42 | REP ---
Clinical: Follow-up atelectasis . Comparison: 03/30/2017 . Technique: PA and lateral. Findings: The mediastinum and cardiac silhouette are normal. Trace residual linear fibroatelectatic changes at the right base are considerably improved and findings may represent resultant chronic changes. The lung luna are clear and without acute consolidation, effusion, or pneumothorax. The skeletal structures are intact and normal. Impression: 1. Near complete resolution of the previously noted linear atelectasis at the right lung base. Residual findings may reflect chronic change.
== END ==
LOC: M CLY 11:11
PROVIDERS: ATTEND Family Medicine
DX: R93.8 Abnormal findings on diagnostic imaging of other specified body structures (principal)

== ENCOUNTER → 2017-07-07 | Outpatient (REF) | payer OTHER | LOC: M SFHCCLAY 14:32 | DX: E11.8 Type 2 diabetes mellitus with unspecified complications (principal) ==

== ENCOUNTER → 2017-10-08 | Outpatient (REF) | payer OTHER ==
[2017-10-08 17:00] LABS: ESTIMATED AVERAGE GLUCOSE 174 MG/DL (60-110); HEMOGLOBIN A1c 7.7 %
[2017-10-08 17:08] LABS: ALBUMIN 3.4 GM/DL (3.2-5.2); ALBUMIN/GLOBULIN RATIO 0.85 (1.00-1.93); ALKALINE PHOSPHATASE 159 U/L (45-117); ALT/SGPT 18 U/L (12-78); ANION GAP 5 MEQ/L (8-16); AST/SGOT 13 U/L (7-37); BILIRUBIN,TOTAL 0.3 MG/DL (0.2-1.0); BLOOD UREA NITROGEN 24 MG/DL (7-18); CALCIUM LEVEL 9.1 MG/DL (8.8-10.2); CARBON DIOXIDE LEVEL 34 MEQ/L (21-32); CHLORIDE LEVEL 104 MEQ/L (98-107); CHOLESTEROL LEVEL 226 MG/DL (<200); CHOLESTEROL RISK RATIO 5.512 (<5); CREATININE FOR GFR 1.36 MG/DL (0.55-1.30); GLOMERULAR FILTRATION RATE 40.4 (>39); GLUCOSE, FASTING 134 MG/DL (70-100); HDL CHOLESTEROL 41 MG/DL (>40); LDL CHOLESTEROL 133.6 MG/DL (<100); NON-HDL-C 185 MG/DL; POTASSIUM SERUM 3.5 MEQ/L (3.5-5.1); SODIUM LEVEL 143 MEQ/L (136-145); TOTAL PROTEIN 7.4 GM/DL (6.4-8.2); TRIGLYCERIDES LEVEL 257 MG/DL (<150)
[2017-10-08 17:26] LABS: CREATININE, URINE 93.7 MG/DL; MALB URINE SIEMENS 22.5 MG/L
== END ==
LOC: M SFHCCLAY 07:09
DX: E11.8 Type 2 diabetes mellitus with unspecified complications (principal)
CPT/HCPCS: 80053

== ENCOUNTER → 2017-12-24 | Outpatient (CLI) | payer OTHER | LOC: M PAIN 09:15 | DX: M96.1 Postlaminectomy syndrome, not elsewhere classified (principal); M47.816 Spondylosis without myelopathy or radiculopathy, lumbar region; E11.9 Type 2 diabetes mellitus without complications; F32.9 Major depressive disorder, single episode, unspecified; I10 Essential (primary) hypertension; E78.5 Hyperlipidemia, unspecified; K21.9 Gastro-esophageal reflux disease without esophagitis; Z79.01 Long term (current) use of anticoagulants; Z79.4 Long term (current) use of insulin; Z79.899 Other long term (current) drug therapy; Z88.4 Allergy status to anesthetic agent; Z88.1 Allergy status to other antibiotic agents; Z88.8 Allergy status to other drugs, medicaments and biological substances; Z88.5 Allergy status to narcotic agent; Z91.02 Food additives allergy status; Z91.018 Allergy to other foods; Z96.653 Presence of artificial knee joint, bilateral; Z87.891 Personal history of nicotine dependence; Z85.3 Personal history of malignant neoplasm of breast; Z86.79 Personal history of other diseases of the circulatory system | CPT/HCPCS: G0463 ==

== ENCOUNTER → 2018-01-19 | Outpatient (CLI) | payer OTHER | LOC: M PAIN 14:30 | DX: Z53.8 Procedure and treatment not carried out for other reasons (principal) ==

== ENCOUNTER → 2018-01-20 | Outpatient (REF) | payer OTHER ==
[2018-01-20 16:25] LABS: HEMATOCRIT 36.5 % (36.0-47.0); HEMOGLOBIN 11.6 g/dl (12.0-15.5); MEAN CORPUSCULAR HGB CONC 31.8 g/dl (32.0-36.5); PLATELET COUNT, AUTOMATED 385 10^3/uL (150-450); RED BLOOD COUNT 4.15 10^6/uL (4.00-5.40); RED CELL DISTRIBUTION WIDTH 14.9 % (11.5-14.5); WHITE BLOOD COUNT 7.5 10^3/uL (4.0-10.0)
[2018-01-20 17:17] LABS: ESTIMATED AVERAGE GLUCOSE 174 MG/DL (60-110); HEMOGLOBIN A1c 7.7 %
[2018-01-20 18:46] LABS: ERYTHROCYTE SEDIMENTATION RATE 66 mm/hr (0-30)
== END ==
LOC: M SFHCCLAY 11:38
DX: M19.90 Unspecified osteoarthritis, unspecified site (principal); E11.8 Type 2 diabetes mellitus with unspecified complications; I25.10 Atherosclerotic heart disease of native coronary artery without angina pectoris
CPT/HCPCS: 83036

== ENCOUNTER → 2018-01-25 | Outpatient (CLI) | payer OTHER ==
[~2018-01-25] MED LIST changes: -/DULO30CA; -/WARF25TA; -/WARF25TA OR; -ABIL5TAB; -ACET500C PO; -ACET65TA OR; -ALBU17IN INH; -ALOP5TAB; -AMLO10TA2 PO; -AMLO5TAB2 PO; -ASPI1TAB PO; -ASPI81TA83; -ATIV1TAB7 PO; -AVEL1TAB3 PO; +BUPIVACAINE HCL 0.25% 10 ML VIAL As Ordered; +BUPIVACAINE HCL 0.25% 30 ML VIAL As Ordered; -BUPR150T PO; -BUPR150T3 PO; -BUPR300T34 PO; -CARV3.12 PO; -CARV6.25 OR; -CARV6.25 PO; -CLOP75TA2 PO; -COLA50CA OR; -CORE12.5; -CORE6.25; -CORE6.25 PO; -DONETAB6 PO; -DRAM50TA7 PO; -DULO20CA; -FENT12PA TOP; -FERR325T3 PO; -FURO40TA2 PO; -HUMALOG INSULIN INJ; -HUMULOG; -HYDR200T3 PO; -HYDR25TA6; -INSUH10VL SC; -INSULANT; -INSULANT SC; -INSULIN LANTUS; -INSULIN LANTUS SQ; -ISOS10TAB PO; -ISOS30TA4 PO; -LASI20TA PO; -LEVA1TAB2 PO; -LISI-538 PO; -LISI10TA4; -LISI20TA5; -LISIPOW PO; -MELO15TA4 PO; -METO1TAB32 PO; -MILKSUS; -MILKSUS OR; -MIRA3350 PO; -MIRALEX PO; -NITR4TASL SL; -OMEP40CA2 PO; -OXYC-517 PO; -OXYC1TAB23 PO; -PERC5TAB8; -PERC7.5T8; -PERC7.5T8 PO; -PLAVIX PO; -POTA10CA PO; -POTA1TAB14 PO; -PRED20TA PO; -PRED25TA PO; -PRIL20CA PO; -SENN8.6T14; -SERO200T; -SERO400T; -SPIR25TA2 PO; -SPIRONOLACTONE-HCTZ PO; -TIZA2CAP3 PO; -TRAZ100T OR; -TRAZ25TA PO; -TRAZ50TA; +TRIAMCINOLONE ACETONIDE SUSP 40 MG/ML VIAL (J3301) As Ordered; -VICODINES TAB; -VITA100067 PO; -VITA500T PO; -ZOLP5TAB PO
== END ==
LOC: M PAIN 13:15
DX: M79.1 Myalgia (principal); M54.5 Low back pain; E11.9 Type 2 diabetes mellitus without complications; F32.9 Major depressive disorder, single episode, unspecified; I10 Essential (primary) hypertension; E78.5 Hyperlipidemia, unspecified; I25.10 Atherosclerotic heart disease of native coronary artery without angina pectoris; Z79.4 Long term (current) use of insulin; Z79.899 Other long term (current) drug therapy; Z88.1 Allergy status to other antibiotic agents; Z88.5 Allergy status to narcotic agent; Z88.8 Allergy status to other drugs, medicaments and biological substances; Z91.09 Other allergy status, other than to drugs and biological substances; Z91.018 Allergy to other foods; Z96.653 Presence of artificial knee joint, bilateral; Z85.3 Personal history of malignant neoplasm of breast; Z86.79 Personal history of other diseases of the circulatory system; Z87.891 Personal history of nicotine dependence
CPT/HCPCS: J3301

== ENCOUNTER → 2018-02-16 | Outpatient (CLI) | payer OTHER | LOC: M PAIN 13:45 | DX: M46.1 Sacroiliitis, not elsewhere classified (principal); G89.29 Other chronic pain; E11.9 Type 2 diabetes mellitus without complications; F32.9 Major depressive disorder, single episode, unspecified; I10 Essential (primary) hypertension; E78.5 Hyperlipidemia, unspecified; Z79.4 Long term (current) use of insulin; Z79.899 Other long term (current) drug therapy; Z88.1 Allergy status to other antibiotic agents; Z88.5 Allergy status to narcotic agent; Z88.8 Allergy status to other drugs, medicaments and biological substances; Z91.02 Food additives allergy status; Z91.018 Allergy to other foods; Z85.3 Personal history of malignant neoplasm of breast; Z92.3 Personal history of irradiation; Z86.79 Personal history of other diseases of the circulatory system | CPT/HCPCS: G0463 ==

== ENCOUNTER → 2018-03-09 | Outpatient (CLI) | payer OTHER | LOC: M RAD 10:07 | DX: Z12.31 Encounter for screening mammogram for malignant neoplasm of breast (principal); Z92.89 Personal history of other medical treatment; Z85.3 Personal history of malignant neoplasm of breast | CPT/HCPCS: 77067 ==

== ENCOUNTER → 2018-03-30 | Outpatient (CLI) | payer OTHER ==
[~2018-03-30] MED LIST changes: -BUPIVACAINE HCL 0.25% 10 ML VIAL As Ordered; +ISOVUE-M 300 61% 15ML VIAL (Q9967) As Ordered; +LIDOCAINE 1% SDV INJ 30 ML VIAL As Ordered; +oxyCODONE 5MG TAB As Ordered
== END ==
LOC: M PAIN 08:30
DX: M46.1 Sacroiliitis, not elsewhere classified (principal); E11.9 Type 2 diabetes mellitus without complications; F32.9 Major depressive disorder, single episode, unspecified; I11.0 Hypertensive heart disease with heart failure; D64.9 Anemia, unspecified; E78.5 Hyperlipidemia, unspecified; I25.10 Atherosclerotic heart disease of native coronary artery without angina pectoris; M54.32 Sciatica, left side; I50.9 Heart failure, unspecified; Z85.3 Personal history of malignant neoplasm of breast; Z95.5 Presence of coronary angioplasty implant and graft; Z96.653 Presence of artificial knee joint, bilateral; Z87.891 Personal history of nicotine dependence; Z88.5 Allergy status to narcotic agent; Z88.8 Allergy status to other drugs, medicaments and biological substances; Z91.018 Allergy to other foods; Z88.0 Allergy status to penicillin; Z79.4 Long term (current) use of insulin; Z79.02 Long term (current) use of antithrombotics/antiplatelets; Z79.899 Other long term (current) drug therapy
CPT/HCPCS: J3301

== ENCOUNTER → 2018-04-12 | Outpatient (CLI) | payer OTHER | LOC: M PAIN 10:30 | DX: M46.1 Sacroiliitis, not elsewhere classified (principal); E11.9 Type 2 diabetes mellitus without complications; F32.9 Major depressive disorder, single episode, unspecified; I10 Essential (primary) hypertension; E78.5 Hyperlipidemia, unspecified; Z79.01 Long term (current) use of anticoagulants; Z79.4 Long term (current) use of insulin; Z79.899 Other long term (current) drug therapy; Z88.1 Allergy status to other antibiotic agents; Z88.5 Allergy status to narcotic agent; Z88.8 Allergy status to other drugs, medicaments and biological substances; Z91.018 Allergy to other foods; Z91.02 Food additives allergy status; Z85.3 Personal history of malignant neoplasm of breast; Z92.3 Personal history of irradiation; Z86.79 Personal history of other diseases of the circulatory system; Z87.891 Personal history of nicotine dependence; Z96.651 Presence of right artificial knee joint | CPT/HCPCS: G0463 ==

== ENCOUNTER → 2018-05-30 | Outpatient (CLI) | payer MEDICARE, OTHER ==
[~2018-05-30] MED LIST changes: +/DULO30CA; +/WARF25TA; +/WARF25TA OR; +ABIL5TAB; +ACET500C PO; +ACET65TA OR; +ALBU17IN INH; +ALOP5TAB; +AMLO10TA5 PO; +AMLO5TAB6 PO; +ASPI1TAB PO; +ASPI81TA83; +ATIV1TAB7 PO; +AVEL1TAB3 PO; -BUPIVACAINE HCL 0.25% 30 ML VIAL As Ordered; +BUPR150T PO; +BUPR150T3 PO; +BUPR300T34 PO; +CARV3.12 PO; +CARV6.25 OR; +CARV6.25 PO; +CLOP75TA2 PO; +COLA50CA OR; +CORE12.5; +CORE6.25; +CORE6.25 PO; +DONETAB6 PO; +DRAM50TA7 PO; +DULO20CA; +FENT12PA TOP; +FERR325T3 PO; +FURO40TA2 PO; +HUMALOG INSULIN INJ; +HUMULOG; +HYDR200T3 PO; +HYDR25TA6; +INSUH10VL SC; +INSULANT; +INSULANT SC; +INSULIN LANTUS; +INSULIN LANTUS SQ; +ISOS10TAB PO; +ISOS30TA4 PO; -ISOVUE-M 300 61% 15ML VIAL (Q9967) As Ordered; +KLOR10TA76 PO; +LASI20TA PO; +LEVA1TAB2 PO; -LIDOCAINE 1% SDV INJ 30 ML VIAL As Ordered; +LISI-538 PO; +LISI10TA4; +LISI20TA5; +LISIPOW PO; +MELO15TA28 PO; +METO1TAB32 PO; +MILKSUS; +MILKSUS OR; +MIRA3350 PO; +MIRALEX PO; +NITR4TASL SL; +OMEP40CA2 PO; +OXYC-517 PO; +OXYC1TAB23 PO; +PERC5TAB8; +PERC7.5T8; +PERC7.5T8 PO; +PLAVIX PO; +POTA1TAB14 PO; +PRED20TA PO; +PRED25TA PO; +PRIL20CA PO; +SENN8.6T14; +SERO200T; +SERO400T; +SPIR-10 PO; +SPIRONOLACTONE-HCTZ PO; +TIZA2CAP PO; +TRAZ100T OR; +TRAZ25TA PO; +TRAZ50TA; -TRIAMCINOLONE ACETONIDE SUSP 40 MG/ML VIAL (J3301) As Ordered; +VICODINES TAB; +VITA100067 PO; +VITA500T PO; +ZOLP5TAB PO; -oxyCODONE 5MG TAB As Ordered
--- NOTE | 2018-06-20 00:35 | ECWPNPC ---
PATIENT NAME: WEN SCHWAB : 1940 GENDER: FEMALE VISIT DATE: 05/30/2018 DISCHARGE DATE: 05/30/18 1423 VISIT LOCKED DATE TIME: PHYSICIAN: KONSTANTIN HORVATH PHYSICIAN PAGER NO: [phone] RESOURCE: KONSTANTIN HORVATH REASON FOR APPOINTMENT 1. BACK HISTORY OF PRESENT ILLNESS HISTORY OF PRESENT ILLNESS: HERE FOR F/U OF CHRONIC LOW BACK AND BILATERAL POSTERIOR LEG PAIN.RATING PAIN LEVEL 9/10 VAS.DESCRIBES PAIN CONSTANT ACHING AND BURNING.DISCUSSED MEDICATION AND TREATMENT OPTIONS. PAIN THE PATIENT DESCRIBES THE PAIN... FALL RISK SCREENING: SCREENING :NO FALLS IN THE PAST YEAR CURRENT MEDICATIONS TAKING NITROGLYCERIN 0.4 MG TABLET SUBLINGUAL SUBLINGUAL TAKING TYLENOL 1 TABLET 1 TABLET NEEDED ORALLY EVERY 4 HRS TAKING NOVOLOG FLEXPEN 100 UNIT/ML SOLUTION 10-15 UNITS WITH MEALS SUBCUTANEOUS WITH EACH MEAL TAKING LANTUS SOLOSTAR 100 UNIT/ML SOLUTION 40 UNITS SUBCUTANEOUS ONCE A DAY TAKING LANCET DEVICES - MISCELLANEOUS DIRECTED DX)E11.9 THREE TIMES DAILY TAKING TRUE CARE TEST STRIP PACK - STRIP DIRECTED IN VITRO TID ( DX)E11.9 TAKING UNIFINE PENTIPS 31G X 5 MM MISCELLANEOUS 1 SUBCUTANEOUSLY TID E11.9 TAKING VENTOLIN HFA 108 (90 BASE) MCG/ACT AEROSOL SOLUTION 2 PUFFS NEEDED INHALATION QID PRN FOR COUGH OR RESCUE TAKING TRIAMCINOLONE ACETONIDE 0.5 % CREAM 1 APPLICATION TO AFFECTED AREA EXTERNALLY TWICE A DAY TO ELBOWS, PRN ITCHING AND SCALE TAKING CLARITIN 10 MG TABLET 1 TABLET ORALLY ONCE A DAY TAKING MIRALAX PACKET 1 PACKET MIXED WITH 8 OUNCES OF FLUID ORALLY DAILYPRN TAKING WELLBUTRIN XL 300 MG TABLET EXTENDED RELEASE 24 HOUR 1 TABLET IN THE MORNING ORALLY ONCE A DAY TAKING WELLBUTRIN XL 150 MG TABLET EXTENDED RELEASE 24 HOUR 1 TABLET IN THE MORNING ORALLY (TOTAL DAILY DOES =450 MG) ONCE A DAY TAKING AMLODIPINE BESYLATE 5 MG TABLET 1 TABLET ORALLY ONCE A DAY TAKING TORSEMIDE 100 MG TABLET 1/2 TABLET ORALLY BID TAKING METAMUCIL FIBER 51.7 % PACKET 1 PACKET IN 8OZ WATER ORALLY DAILY TAKING CARVEDILOL 6.25 MG TABLET 3 TABS ORALLY BID TAKING OMEPRAZOLE 40MG 40MG TABLET 1 TAB(S) ORALLY DAILY TAKING SPIRONOLACTONE 25 MG TABLET 1 TABLET ORALLY DAILY TAKING NYSTATIN [id number] UNIT/GM POWDER 1 APPLICATION TO AFFECTED AREA EXTERNALLY TWICE A DAY TAKING PLAVIX 75 MG TABLET 1 TABLET ORALLY DAILY TAKING REQUIP 0.25 MG TABLET 1-2 TABLET 1 TO 3 HOURS BEFORE BEDTIME ORALLY ONCE A DAY TAKING LORAZEPAM 1 MG TABLET 1 TABLET AT BEDTIME NEEDED ORALLY ONCE A DAY- MDD=1 NOT-TAKING VITAMIN C 500 MG CAPSULE 1 TABLET ORALLY DAILY MEDICATION LIST REVIEWED AND RECONCILED WITH THE PATIENT PAST MEDICAL HISTORY LAST COLONONSCPY 2000 LAST MAMMOGRAM-2013 PAP N/A SECONDARY TO AGE OVER 69, NOT HIGH RISK DM DEPRESSION NARCOTIC WITHDRAWAL (OVERDOSE) HYPERTENSION ANEMIA HYPERLIPIDEMIA CAD MYALGIA DUE TO ZOCOR BREAST CANCER, LEFT DUCTAL CARCINOMA IN SITU., S/P RADIATION THERAPY. 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, EF 35%, ALLERGIES AMARYL: SHAKINESS: ALLERGY STRAWBERRY: MOUTH BLISTERS: ALLERGY ZOCOR 20: MYALGIAS &ARTHRALGIAS: ALLERGY CRESTOR : MYALGIA & ARTHRALGIA: ALLERGY CODEINE: BURNING UPSET STOMAC: SIDE EFFECTS FENTANYL: UPSET STOMACH: SIDE EFFECTS GABAPENTIN: BALANCE ISSUES, HALUCINATION: SIDE EFFECTS TRAZADONE: CONFUSION: SIDE EFFECTS LYRICA: DYSPNEA: ALLERGY BYETTA 10 MCG PEN: WEIRD FEELING: SIDE EFFECTS GLIMEPIRIDE: UNKNOWN AMOXICILLIN: GI UPSET: SIDE EFFECTS CI PIGMENT BLUE 63: UNKNOWN DULOXETINE HCL: GI UPSET: SIDE EFFECTS EXENATIDE: UNKNOWN SURGICAL HISTORY KNEE REPLACEMENT (RIGHT) 2010 HYSTERECTOMY GALL BLADDER ARTHOSCOPY PRIOR TO RT KNEE REPLACEMENT DHARA CARPAL TUNNEL KNEE REPLACEMENT (LEFT) LEFT LUMPECTOMY 04/23/[address] RENAE 11/28/15 [facility] DRUG ELUTING STENT 2007 FAMILY HISTORY FATHER: , CANCER, COLON, DIAGNOSED WITH CANCER MOTHER: , CVA, CARDIAC DISEASE, DIAGNOSED WITH HEART DISEASE, STROKE SIBLINGS: , HEART PROBLEMS--CVA, DIAGNOSED WITH STROKE, OTHER 3 SISTER(S) . 2 SON(S) , 1 DAUGHTER(S) - HEALTHY. FATHER-PROSTATE [id number], ARTHRITISSISTER-STROKE. SOCIAL HISTORY GENERAL: TOBACCO USE ARE YOU A:FORMER SMOKER HOW LONG HAS IT BEEN SINCE YOU LAST SMOKED?> 10 YEARS JEWISH [id number] MUSLIM LANGUAGE LANGUAGES SPOKEN:MOHAWK LEARNING BARRIERS / SPECIAL NEEDS BARRIERS TO LEARNING?NO HEARING IMPAIRED?NO VISION IMPAIRED?YES COGNITIVELY IMPAIRED?NO :CORRECTIVE LENSES READINESS TO LEARN?YES LEARNING PREFERENCES?NO LEARNING CAPABILITIES PRESENT?YES EMOTIONAL BARRIERS?NO SPECIAL DEVICES?YES :[facility] PFS, CLERGY, PUBLIC HEALTH REFERRALS PFS REFERRAL NEEDED?NO CLERGY REFERRAL NEEDED?NO PUBLIC HEALTH REFERRAL NEEDED?NO WAS THE PROVIDER NOTIFIED OF ANY PERTINENT INFO?NO HAS THE PATIENT BEEN EDUCATED REGARDING HIS/HER PLAN OF CARE?YES HAS THE PATIENT BEEN EDUCATED REGARDING PAIN, THE RISK FOR PAIN, THE IMPORTANCE OF EFFECTIVE PAIN MANAGEMENT, AND THE PAIN ASSESSMENT PROCESS?YES ADVANCE DIRECTIVE ADVANCE DIRECTIVE DISCUSSED WITH PATIENT:YES HCP IS MICHELE [phone] 12/24/17 REVIEWED WITH PT. AD01/25/18 REVIEWED WITH PT LAS03/30/18 0901 REVIEWED WITH PT LAS. HOSPITALIZATION/MAJOR DIAGNOSTIC PROCEDURE CHF/ ANEMIA 06/04/2016 SURGERY PNEUMONIA ([facility]) SEPTEMBER 2016 REVIEW OF SYSTEMS REVIEWED BY: PROVIDER: KONSTANTIN GE . CONSTITUTIONAL: ANY CHANGE IN YOUR MEDICAL CONDITION? NO . CHILLS NO . FEVER NO . INFECTION: DO YOU HAVE NEW INFECTIONS? NO . DO YOU HAVE HISTORY OF MRSA? NO . MUSCULOSKELETAL: ANY NEW PATTERNS OF PAIN OR NUMBNESS? YES, PAIN HAS INCREASED OVER THE PAST COUPLE DAYS . GASTROENTEROLOGY: ANY NEW CHANGE IN BOWEL CONTROL? NO . GENITOURINARY: ANY NEW CHANGE IN BLADDER CONTROL? NO . IS THERE A CHANCE YOU COULD BE ? NO . HEMATOLOGY/LYMPH: DO YOU TAKE ANY BLOOD THINNERS? (FOR EXAMPLE- COUMADIN, PLAVIX, AGGRENOX, PLATEL, PRADAXA, OR XARELTO) YES, PLAVIX . WHEN WAS YOUR LAST DOSE? DATE: TIME: . NEUROLOGY: HAVE YOU FALLEN IN THE PAST 6 MONTHS? NO . ANY NEW EXTREMITY NUMBNESS OR WEAKNESS? YES, RIGHT KNEE NUMBNESS X 2 WEEKS . CARDIOLOGY: DO YOU HAVE A PACEMAKER OR DEFIBRILLATOR? NO . RESPIRATORY: HAVE YOU BEEN SICK IN THE PAST WEEK? NO . FEVER NO . FLU LIKE SYMPTOMS? NO . COUGH NO . INTEGUMENTARY: DO YOU HAVE ANY RASHES OR OPEN SORES? NO . ALLERGIC/IMMUNO: ARE YOU ALLERGIC TO SHELLFISH OR IV DYE? NO . ANY NEW ALLERGIES? NO . PSYCHIATRIC: DO YOU HAVE THOUGHTS OF HURTING YOURSELF OR SOMEONE ELSE? NO . ARE YOU ABUSED, NEGLECTED, OR IN AN UNSAFE ENVIRONMENT? NO . ENDOCRINOLOGY: ARE YOU DIABETIC? YES . OTHER: DO YOU NEED ANY PRESCRIPTIONS? NO . IF YES, PLEASE LIST: ____ . ANY NEW PROBLEMS WITH YOUR MEDICATIONS? NO . WHEN DID YOU LAST EAT? ____ . WHEN DID YOU LAST DRINK? ____ . WHAT DID YOU LAST DRINK? ____ . NAME OF PERSON DRIVING YOU HOME? ____ . DO YOU HAVE ANY OTHER QUESTIONS OR CONCERNS NO . VITAL SIGNS WT 220 LBS, HT 64.5 IN, BMI 37.18 INDEX, BP 159/71 MM HG, HR 80 /MIN, RR 16 /MIN, TEMP 96.9 F, OXYGEN SAT % 96, REVIEWED BY: EM. EXAMINATION GENERAL EXAMINATION: GENERAL APPEARANCE:ALERT,NO DISTRESS . PSYCHAFFECT NORMAL . LUNGS:LUNG SOUNDS ARE CLEAR . HEART:HEART RATE REGULAR . MUSCULOSKELETAL:MST3/5 BILAT. LOWER EXTREMITIES . LUMBAR SACRAL SPINEBILAT L4/5-L5/S1 FACET TENDERNESS. DIAGNOSTIC TESTS REVIEWEDCT L/S [id number] . ASSESSMENTS SPONDYLOSIS OF LUMBAR REGION WITHOUT MYELOPATHY OR RADICULOPATHY - M47.816 (PRIMARY) TREATMENT SPONDYLOSIS OF LUMBAR REGION WITHOUT MYELOPATHY OR RADICULOPATHY CONTINUE REQUIP TABLET, 0.25 MG, 1-2 TABLET 1 TO 3 HOURS BEFORE BEDTIME, ORALLY, ONCE A DAY NOTES: L4/5-L5/S1 BILAT LUMBAR THERAPEUTIC BLOCKSTOP PLAVIX 7 DAYS PRE PROCEDURE SCHEDULE DAY 8. PROCEDURE CODES FA211 ESTABILISHED [facility] CHARGE DISPOSITION & COMMUNICATION FOLLOW UP POST (REASON: L4/5-L5/S1 BILAT LUMBAR THERAPEUTIC BLOCK) ELECTRONICALLY SIGNED BY LUMA CASTANEDA ON 06/19/2018 AT 09:31 AM EST DISCLAIMER : THIS IS A VISIT SUMMARY EXTRACTED FROM THE [facility] CHART. IT IS NOT A COPY OF THE [facility] PROGRESS NOTE. GRICEL
== END ==
LOC: M PAIN 14:00
PROVIDERS: ATTEND Nurse Practitioner Family
DX: M47.816 Spondylosis without myelopathy or radiculopathy, lumbar region (principal); G89.29 Other chronic pain; E11.9 Type 2 diabetes mellitus without complications; F32.9 Major depressive disorder, single episode, unspecified; I10 Essential (primary) hypertension; E78.5 Hyperlipidemia, unspecified; E66.01 Morbid (severe) obesity due to excess calories; Z68.37 Body mass index [BMI] 37.0-37.9, adult; Z79.01 Long term (current) use of anticoagulants; Z79.4 Long term (current) use of insulin; Z79.899 Other long term (current) drug therapy; Z88.1 Allergy status to other antibiotic agents; Z88.5 Allergy status to narcotic agent; Z88.8 Allergy status to other drugs, medicaments and biological substances; Z91.018 Allergy to other foods; Z86.79 Personal history of other diseases of the circulatory system; Z85.3 Personal history of malignant neoplasm of breast; Z92.3 Personal history of irradiation; Z87.891 Personal history of nicotine dependence; Z96.651 Presence of right artificial knee joint

== ENCOUNTER → 2018-06-20 | Outpatient (CLI) | payer MEDICARE ==
[~2018-06-20] MED LIST changes: +BUPIVACAINE HCL 0.25% 30 ML VIAL As Ordered ONE; +ISOVUE-M 300 61% 15ML VIAL (Q9967) As Ordered ONE; +LIDOCAINE 1% SDV INJ 30 ML VIAL As Ordered ONE; +TRIAMCINOLONE ACETONIDE SUSP 40 MG/ML VIAL (J3301) As Ordered ONE; +oxyCODONE 5MG TAB As Ordered ONE
--- NOTE | 2018-06-20 16:41 | REP ---
Partial lumbar spine series: Four views . History: Injection procedure for pain. 27 seconds of fluoroscopy time is reported. Findings: A sequence of four fluoroscopically obtained last image hold procedural spot radiographs of the lumbar spine document needle position and contrast injection associated with injection procedure. Electronically Signed by Thanh Joaquin MD 06/20/2018 04:32 P
--- NOTE | 2018-07-03 23:56 | ECWPNPC ---
PATIENT NAME: WEN SCHWAB : 1940 GENDER: FEMALE VISIT DATE: 06/20/2018 DISCHARGE DATE: 06/20/181652 VISIT LOCKED DATE TIME: PHYSICIAN: TOAN BURK MD PHYSICIAN PAGER NO: [phone] RESOURCE: TOAN BURK MD REASON FOR APPOINTMENT 1. L4/5-L5/S1 BILAT LUMBAR THERAPEUTIC BLOCK. HISTORY OF PRESENT ILLNESS HISTORY OF PRESENT ILLNESS: PAIN THE PATIENT DESCRIBES THE PAIN... FALL RISK SCREENING: SCREENING :NO FALLS IN THE PAST YEAR CURRENT MEDICATIONS TAKING NITROGLYCERIN 0.4 MG TABLET SUBLINGUAL SUBLINGUAL , NOTES: NONE RECENT TAKING TYLENOL 1 TABLET 1 TABLET NEEDED ORALLY EVERY 4 HRS, NOTES: 06/20/18 0700 TAKING NOVOLOG FLEXPEN 100 UNIT/ML SOLUTION 10-15 UNITS WITH MEALS SUBCUTANEOUS WITH EACH MEAL, NOTES: 06/19/18 1730 TAKING LANTUS SOLOSTAR 100 UNIT/ML SOLUTION 40 UNITS SUBCUTANEOUS ONCE A DAY, NOTES: 06/19/18 2100 TAKING LANCET DEVICES - MISCELLANEOUS DIRECTED DX)E11.9 THREE TIMES DAILY TAKING TRUE CARE TEST STRIP PACK - STRIP DIRECTED IN VITRO TID ( DX)E11.9 TAKING UNIFINE PENTIPS 31G X 5 MM MISCELLANEOUS 1 SUBCUTANEOUSLY TID E11.9 TAKING VENTOLIN HFA 108 (90 BASE) MCG/ACT AEROSOL SOLUTION 2 PUFFS NEEDED INHALATION QID PRN FOR COUGH OR RESCUE, NOTES: NONE RECENT TAKING TRIAMCINOLONE ACETONIDE 0.5 % CREAM 1 APPLICATION TO AFFECTED AREA EXTERNALLY TWICE A DAY TO ELBOWS, PRN ITCHING AND SCALE, NOTES: 06/19/18 PM TAKING CLARITIN 10 MG TABLET 1 TABLET ORALLY ONCE A DAY, NOTES: NONE RECENT TAKING MIRALAX PACKET 1 PACKET MIXED WITH 8 OUNCES OF FLUID ORALLY DAILYPRN, NOTES: NONE RECENT TAKING WELLBUTRIN XL 300 MG TABLET EXTENDED RELEASE 24 HOUR 1 TABLET IN THE MORNING ORALLY ONCE A DAY, NOTES: 06/20/18 0700 TAKING WELLBUTRIN XL 150 MG TABLET EXTENDED RELEASE 24 HOUR 1 TABLET IN THE MORNING ORALLY (TOTAL DAILY DOES =450 MG) ONCE A DAY, NOTES: 06/20/18 0700 TAKING AMLODIPINE BESYLATE 5 MG TABLET 1 TABLET ORALLY ONCE A DAY, NOTES: 06/20/18 0700 TAKING TORSEMIDE 100 MG TABLET 1/2 TABLET ORALLY BID, NOTES: 06/19/18 PM TAKING METAMUCIL FIBER 51.7 % PACKET 1 PACKET IN 8OZ WATER ORALLY DAILY, NOTES: NONE RECENT TAKING CARVEDILOL 6.25 MG TABLET 3 TABS ORALLY BID, NOTES: 06/20/18 07 TAKING OMEPRAZOLE 40MG 40MG TABLET 1 TAB(S) ORALLY DAILY, NOTES: 06/20/18 07 TAKING SPIRONOLACTONE 25 MG TABLET 1 TABLET ORALLY DAILY, NOTES: 06/20/18 07 TAKING NYSTATIN [id number] UNIT/GM POWDER 1 APPLICATION TO AFFECTED AREA EXTERNALLY TWICE A DAY, NOTES: 06/20/18 07 TAKING PLAVIX 75 MG TABLET 1 TABLET ORALLY DAILY, NOTES: 06/12/18 TAKING REQUIP 0.25 MG TABLET 1-2 TABLET 1 TO 3 HOURS BEFORE BEDTIME ORALLY ONCE A DAY, NOTES: 06/19/18 PM TAKING LORAZEPAM 1 MG TABLET 1 TABLET AT BEDTIME NEEDED ORALLY ONCE A DAY- MDD=1, NOTES: -REF.# [id number] 06/19/18 2100 NOT-TAKING VITAMIN C 500 MG CAPSULE 1 TABLET ORALLY DAILY MEDICATION LIST REVIEWED AND RECONCILED WITH THE PATIENT PAST MEDICAL HISTORY LAST COLONONSCPY 2000 LAST MAMMOGRAM-2013 LAST PAP N/A SECONDARY TO AGE OVER 69, NOT HIGH RISK DM DEPRESSION NARCOTIC WITHDRAWAL (OVERDOSE) HYPERTENSION ANEMIA HYPERLIPIDEMIA CAD MYALGIA DUE TO ZOCOR BREAST CANCER, LEFT DUCTAL CARCINOMA IN SITU., S/P RADIATION THERAPY. 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, EF 35%, ALLERGIES AMARYL: SHAKINESS: ALLERGY STRAWBERRY: MOUTH BLISTERS: ALLERGY ZOCOR 20: MYALGIAS &ARTHRALGIAS: ALLERGY CRESTOR : MYALGIA & ARTHRALGIA: ALLERGY CODEINE: BURNING UPSET STOMAC: SIDE EFFECTS FENTANYL: UPSET STOMACH: SIDE EFFECTS GABAPENTIN: BALANCE ISSUES, HALUCINATION: SIDE EFFECTS TRAZADONE: CONFUSION: SIDE EFFECTS LYRICA: DYSPNEA: ALLERGY BYETTA 10 MCG PEN: WEIRD FEELING: SIDE EFFECTS GLIMEPIRIDE: UNKNOWN AMOXICILLIN: GI UPSET: SIDE EFFECTS CI PIGMENT BLUE 63: UNKNOWN DULOXETINE HCL: GI UPSET: SIDE EFFECTS EXENATIDE: UNKNOWN SURGICAL HISTORY KNEE REPLACEMENT (RIGHT) 2010 HYSTERECTOMY GALL BLADDER ARTHOSCOPY PRIOR TO RT KNEE REPLACEMENT DHARA CARPAL TUNNEL KNEE REPLACEMENT (LEFT) LEFT LUMPECTOMY 04/23/[address] RENAE 11/28/15 RCA DRUG ELUTING STENT 2007 FAMILY HISTORY FATHER: , CANCER, COLON, DIAGNOSED WITH CANCER MOTHER: , CVA, CARDIAC DISEASE, DIAGNOSED WITH HEART DISEASE, STROKE SIBLINGS: , HEART PROBLEMS--CVA, DIAGNOSED WITH STROKE, OTHER 3 SISTER(S) . 2 SON(S) , 1 DAUGHTER(S) - HEALTHY. FATHER-PROSTATE [id number], ARTHRITISSISTER-STROKE. SOCIAL HISTORY GENERAL: TOBACCO USE ARE YOU A:FORMER SMOKER HOW LONG HAS IT BEEN SINCE YOU LAST SMOKED?> 10 YEARS DENOMINATIONAL [id number] SPIRITISM LANGUAGE LANGUAGES SPOKEN:BENGALI LEARNING BARRIERS / SPECIAL NEEDS BARRIERS TO LEARNING?NO HEARING IMPAIRED?NO VISION IMPAIRED?YES COGNITIVELY IMPAIRED?NO :CORRECTIVE LENSES READINESS TO LEARN?YES LEARNING PREFERENCES?NO LEARNING CAPABILITIES PRESENT?YES EMOTIONAL BARRIERS?NO SPECIAL DEVICES?YES :[facility] PFS, CLERGY, PUBLIC HEALTH REFERRALS PFS REFERRAL NEEDED?NO CLERGY REFERRAL NEEDED?NO PUBLIC HEALTH REFERRAL NEEDED?NO WAS THE PROVIDER NOTIFIED OF ANY PERTINENT INFO?NO HAS THE PATIENT BEEN EDUCATED REGARDING HIS/HER PLAN OF CARE?YES HAS THE PATIENT BEEN EDUCATED REGARDING PAIN, THE RISK FOR PAIN, THE IMPORTANCE OF EFFECTIVE PAIN MANAGEMENT, AND THE PAIN ASSESSMENT PROCESS?YES ADVANCE DIRECTIVE ADVANCE DIRECTIVE DISCUSSED WITH PATIENT:YES HCP IS MICHELE [phone] 12/24/17 REVIEWED WITH PT. AD01/25/18 REVIEWED WITH PT LAS03/30/18 0901 REVIEWED WITH PT LAS06/20/18 1444 REVIEWED WITH PATIENT BV. HOSPITALIZATION/MAJOR DIAGNOSTIC PROCEDURE CHF/ ANEMIA 06/04/2016 SURGERY PNEUMONIA ([facility]) SEPTEMBER 2016 REVIEW OF SYSTEMS REVIEWED BY: PROVIDER: . CONSTITUTIONAL: ANY CHANGE IN YOUR MEDICAL CONDITION? NO . CHILLS NO . FEVER NO . INFECTION: DO YOU HAVE NEW INFECTIONS? NO . DO YOU HAVE HISTORY OF MRSA? NO . MUSCULOSKELETAL: ANY NEW PATTERNS OF PAIN OR NUMBNESS? NO . GASTROENTEROLOGY: ANY NEW CHANGE IN BOWEL CONTROL? NO . GENITOURINARY: ANY NEW CHANGE IN BLADDER CONTROL? NO . IS THERE A CHANCE YOU COULD BE ? NO . HEMATOLOGY/LYMPH: DO YOU TAKE ANY BLOOD THINNERS? (FOR EXAMPLE- COUMADIN, PLAVIX, AGGRENOX, PLATEL, PRADAXA, OR XARELTO) PLAVIX LAST TAKEN 06/12/18 0900 . WHEN WAS YOUR LAST DOSE? DATE: TIME: . NEUROLOGY: HAVE YOU FALLEN IN THE PAST 12 MONTHS? PT HAD A SLIP ON ICE LAST WEEK AND FELL ONTO HER RIGHT SIDE. COMPLAINS OF BRUISING TO RIGHT SIDE BUT DECLINES ANY OTHER INJURIES AND DID NOT GO TO ED. . ANY NEW EXTREMITY NUMBNESS OR WEAKNESS? NO . CARDIOLOGY: DO YOU HAVE A PACEMAKER OR DEFIBRILLATOR? NO . RESPIRATORY: HAVE YOU BEEN SICK IN THE PAST WEEK? NO . FEVER NO . FLU LIKE SYMPTOMS? NO . COUGH NO . INTEGUMENTARY: DO YOU HAVE ANY RASHES OR OPEN SORES? NO . ALLERGIC/IMMUNO: ARE YOU ALLERGIC TO IV DYE? NO . ANY NEW ALLERGIES? NO . PSYCHIATRIC: DO YOU HAVE THOUGHTS OF HURTING YOURSELF OR SOMEONE ELSE? NO . ARE YOU ABUSED, NEGLECTED, OR IN AN UNSAFE ENVIRONMENT? NO . ENDOCRINOLOGY: ARE YOU DIABETIC? YES, FSBS 127 AT 530 . OTHER: DO YOU NEED ANY PRESCRIPTIONS? NO . IF YES, PLEASE LIST: ____ . ANY NEW PROBLEMS WITH YOUR MEDICATIONS? NO . WHEN DID YOU LAST EAT? 06/20/18 AT 0730 . WHEN DID YOU LAST DRINK? 06/20/18 1045 . WHAT DID YOU LAST DRINK? CLEAR SODA . 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 DO YOU HAVE ANY OTHER QUESTIONS OR CONCERNS NO . VITAL SIGNS WT 220 LBS, HT 64.5 IN, BMI 37.18 INDEX, BP 190/80 MM HG, HR 77 /MIN, RR 16 /MIN, TEMP 96.1 F, OXYGEN SAT % 97%, NA INITIALS AW 1434, REVIEWED BY: BVLET NURSE KNOW ABOUT PT BP. ASSESSMENTS SPONDYLOSIS OF LUMBAR REGION WITHOUT MYELOPATHY OR RADICULOPATHY - M47.816 (PRIMARY) SPONDYLOSIS OF LUMBOSACRAL REGION WITHOUT MYELOPATHY OR RADICULOPATHY - M47.817 TREATMENT SPONDYLOSIS OF LUMBAR REGION WITHOUT MYELOPATHY OR RADICULOPATHY [facility] FACET BLOCK (PAIN)[id number] PROCEDURES PN LUMBAR FACET BLOCK THERAPEUTIC PRE PROCEDURE DIAGNOSIS LUMBAR SPONDYLOSIS, LUMBOSACRAL SPONDYLOSIS POST PROCEDURE DIAGNOSIS LUMBAR SPONDYLOSIS, LUMBOSACRAL SPONDYLOSIS PROCEDURE BILATERAL L4-L5 AND BILATERAL L5-S1 LUMBAR FACET THERAPEUTIC BLOCK SURGEON DR. TOAN BURK BACK HAND NONE ANESTHESIA LOCAL PRE PROCEDURE NOTE THE PATIENT HAS A HISTORY OF CHRONIC LOW BACK PAIN. I EVALUATE THE PATIENT AND REVIEWED THE CHART. I WENT OVER THE RISKS, ALTERNATIVES, AND BENEFITS ASSOCIATED WITH THIS PROCEDURE. THE PATIENT WOULD LIKE TO PROCEED AND GIVE CONSENT TO PERFORMED THE PROCEDURE. THE PATIENT DENIES UNEXPLAINABLE WEIGHT LOSS, FEVER, CHILLS, OR NEW CHANGES IN URINARY OR BOWEL CONTROL DESCRIPTION OF PROCEDURE THE PATIENT WAS BROUGHT TO THE PROCEDURE ROOM AND PLACED IN THE PRONE POSITION. THE LUMBOSACRAL AREA WAS CLEANED WITH CHLORAPREP SOLUTION AND DRAPED ASEPTICALLY. THE PROCEDURE WAS DONE UNDER STERILE CONDITIONS. I CHECKED LATERALITY AND THE LEVEL WHERE THE PROCEDURE WAS GOING TO BE PERFORMED WITH THE PATIENT AND THE SUPPORTING STAFF AT THE MOMENT OF THE TIME OUT IN THE PROCEDURE ROOM. UNDER FLUOROSCOPIC GUIDANCE, THE TARGET POINT WAS SELECTED AT THE RIGHT AND LEFT L4-L5 AND RIGHT AND LEFT L5-S1 FACET JOINT. TARGET POINT WAS SELECTED AFTER LATERAL ROTATION AND TILT OF THE MAGNIFIER OF THE C-ARM. LIDOCAINE 0.5% WAS USED TO NUMB THE SKIN AND THE SUBCUTANEOUS TISSUE BELOW IT. SPINAL NEEDLES, 22-GAUGE, WERE ADVANCED UNDER FLUOROSCOPIC GUIDANCE AND FOLLOWING PATIENT FEEDBACK UNTIL THE TARGETS WERE TOUCHED. THE POSITION OF THE NEEDLES WAS VERIFIED WITH AP AND LATERAL VIEWS. AFTER PROPER POSITION OF THE NEEDLES WAS ACHIEVED, ISOVUE-M DYE 30% 0.1 ML WAS INJECTED SHOWING ADEQUATE SPREAD OF THE DYE. THEN A SOLUTION OF 1.9 ML OF BUPIVACAINE 0.125% OF KENALOG 10 MG WAS INJECTED AT EACH SITE. THERE WAS NO EVIDENCE OF BLOOD, PARESTHESIA OR CEREBROSPINAL FLUID DURING THE PROCEDURE. THE PATIENT WAS SENT TO THE RECOVERY ROOM. THE PATIENT WAS MOVING THE EXTREMITIES AND DOING WELL. THERE WAS NO COMPLICATION DURING THE PROCEDURE. FLUOROSCOPY TIME WAS 27 SECONDS POST PROCEDURE NOTE THE PATIENT WILL BE SEEN IN A FOLLOW UP IN THE NEXT FEW WEEKS. INSTRUCTIONS WERE GIVEN, QUESTIONS WERE ANSWERED, AND THE PATIENT EXPRESSED UNDERSTANDING AND AGREES WITH THE PLAN. I, ARNALDO HARO, DOCUMENTED THE ABOVE INFORMATION ACTING A SCRIBE FOR DR. BURK. I HAVE REVIEWED THE ABOVE DOCUMENT, WRITTEN BY ARNALDO HARO SCRIBJosiane AND I VERIFY THAT IT IS ACCURATE. PROCEDURE CODES 6045F RADXPS IN END [id number] PXD [id number] INJ PARAVERT F JNT L/S 1 LEV, MODIFIERS: 50 [id number] INJ PARAVERT F JNT L/S 2 LEV, MODIFIERS: 50 DISPOSITION & COMMUNICATION FOLLOW UP 3 WEEKS ELECTRONICALLY SIGNED BY TOAN BURK MD, MD ON 07/03/2018 AT 02:55 PM EST DISCLAIMER : THIS IS A VISIT SUMMARY EXTRACTED FROM THE [employer] CHART. IT IS NOT A COPY OF THE [employer] PROGRESS NOTE. GRICEL
== END ==
LOC: M PAIN 14:15
PROVIDERS: ATTEND Anesthesiology
DX: G89.29 Other chronic pain (principal); M47.816 Spondylosis without myelopathy or radiculopathy, lumbar region; M47.817 Spondylosis without myelopathy or radiculopathy, lumbosacral region; E11.9 Type 2 diabetes mellitus without complications; F32.9 Major depressive disorder, single episode, unspecified; I10 Essential (primary) hypertension; E78.5 Hyperlipidemia, unspecified; I25.10 Atherosclerotic heart disease of native coronary artery without angina pectoris; E66.9 Obesity, unspecified; Z68.37 Body mass index [BMI] 37.0-37.9, adult; Z79.4 Long term (current) use of insulin; Z79.01 Long term (current) use of anticoagulants; Z79.899 Other long term (current) drug therapy; Z88.1 Allergy status to other antibiotic agents; Z88.5 Allergy status to narcotic agent; Z88.8 Allergy status to other drugs, medicaments and biological substances; Z91.02 Food additives allergy status; Z91.018 Allergy to other foods; Z92.3 Personal history of irradiation; Z85.3 Personal history of malignant neoplasm of breast; Z86.79 Personal history of other diseases of the circulatory system; Z96.653 Presence of artificial knee joint, bilateral; Z87.891 Personal history of nicotine dependence
CPT/HCPCS: 64493; 64494; J3301; Q9967

== ENCOUNTER → 2018-09-30 | Outpatient (REF) | payer MEDICARE ==
[~2018-09-30] MED LIST changes: -/DULO30CA; -/WARF25TA; -/WARF25TA OR; -ASPI1TAB PO; +ASPI81TA26 PO; -BUPIVACAINE HCL 0.25% 30 ML VIAL As Ordered ONE; +COUM1TAB18; +COUM1TAB18 OR; +CYMB1CAP4; +CYMB1CAP5; -DULO20CA; +FENT12DI12 TOP; -FENT12PA TOP; -ISOVUE-M 300 61% 15ML VIAL (Q9967) As Ordered ONE; -LIDOCAINE 1% SDV INJ 30 ML VIAL As Ordered ONE; +TRAZ1TAB36 PO; -TRAZ25TA PO; -TRIAMCINOLONE ACETONIDE SUSP 40 MG/ML VIAL (J3301) As Ordered ONE; -oxyCODONE 5MG TAB As Ordered ONE
[2018-09-30 11:24] LABS: HEMATOCRIT 36.9 % (36.0-47.0); HEMOGLOBIN 11.1 g/dl (12.0-15.5); MEAN CORPUSCULAR HEMOGLOBIN 26.3 pg (27.0-33.0); MEAN CORPUSCULAR HGB CONC 30.1 g/dl (32.0-36.5); MEAN CORPUSCULAR VOLUME 87.4 fl (80.0-96.0); PLATELET COUNT, AUTOMATED 470 10^3/uL (150-450); RED BLOOD COUNT 4.22 10^6/uL (4.00-5.40); WHITE BLOOD COUNT 7.5 10^3/uL (4.0-10.0)
[2018-09-30 11:45] LABS: HEMOGLOBIN A1c 8.1 %
[2018-09-30 11:46] LABS: CALCIUM LEVEL 9.4 MG/DL (8.8-10.2); CREATININE FOR GFR 1.22 MG/DL (0.55-1.30); GLOMERULAR FILTRATION RATE 45.6 (>39); POTASSIUM SERUM 3.9 MEQ/L (3.5-5.1)
[2018-09-30 11:47] LABS: ALBUMIN 3.1 GM/DL (3.2-5.2); BILIRUBIN,TOTAL 0.4 MG/DL (0.2-1.0); CHOLESTEROL RISK RATIO 4.723 (<5); THYROID STIMULATING HORMONE 2.6 uIU/ML (0.358-3.740); TOTAL PROTEIN 7.4 GM/DL (6.4-8.2)
== END ==
LOC: M SFHCCLAY 06:58
PROVIDERS: ATTEND Family Medicine
DX: K14.8 Other diseases of tongue (principal); I25.10 Atherosclerotic heart disease of native coronary artery without angina pectoris; I10 Essential (primary) hypertension; E11.8 Type 2 diabetes mellitus with unspecified complications

== ENCOUNTER → 2018-11-14 | Outpatient (REF) | payer MEDICARE | LOC: M LAB REF 13:36 | PROVIDERS: ATTEND Otolaryngology | DX: Z13.79 Encounter for other screening for genetic and chromosomal anomalies (principal) ==

== ENCOUNTER → 2018-11-15 | Outpatient (CLI) | payer MEDICARE ==
--- NOTE | 2018-11-17 01:05 | ECWPNPC ---
PATIENT NAME: WEN SCHWAB : 1940 GENDER: FEMALE VISIT DATE: 11/15/2018 DISCHARGE DATE: 11/15/18 1517 VISIT LOCKED DATE TIME: PHYSICIAN: AISHWARYA CARRERA PHYSICIAN PAGER NO: [phone] RESOURCE: AISHWARYA CARRERA REASON FOR APPOINTMENT 1. POST PROC HISTORY OF PRESENT ILLNESS HISTORY OF PRESENT ILLNESS: 78 YEAR OLD FEMALE IN WITH A HX OF LOW BACK PAIN WITH RADICULOPATHY. SHE RECEIVED A FACET BLOCK AT L4-L5, L5-S1 IN MAY AND REPORTS RELIEF OF SYMPTOMS X 1 MONTH. SHE RATES HER PAIN TODAY AT A 9/10. SHE IS INTERESTED IN FURTHER PROCEDURES TO HELP ALLEVIATE HER PAIN. PAIN THE PATIENT DESCRIBES THE PAIN... FALL RISK SCREENING: SCREENING :NO FALLS REPORTED IN THE LAST YEAR CURRENT MEDICATIONS TAKING NITROGLYCERIN 0.4 MG TABLET SUBLINGUAL DIRECTED SUBLINGUAL TAKING TYLENOL 325 MG TABLET 1 TABLET NEEDED ORALLY EVERY 4 HRS TAKING NOVOLOG FLEXPEN 100 UNIT/ML SOLUTION PEN-INJECTOR DIRECTED SUBCUTANEOUS TAKING LANTUS SOLOSTAR 100 UNIT/ML SOLUTION PEN-INJECTOR DIRECTED SUBCUTANEOUS TAKING VENTOLIN HFA 108 (90 BASE) MCG/ACT AEROSOL SOLUTION 2 PUFFS NEEDED INHALATION EVERY 6 HRS TAKING TRIAMCINOLONE ACETONIDE (PF) TAKING CLARITIN 10 MG TABLET 1 TABLET ORALLY ONCE A DAY TAKING MIRALAX - POWDER DIRECTED ORALLY TAKING WELLBUTRIN XL 300 MG TABLET EXTENDED RELEASE 24 HOUR 1 TABLET IN THE MORNING ORALLY ONCE A DAY TAKING WELLBUTRIN XL 150 MG TABLET EXTENDED RELEASE 24 HOUR 1 TABLET IN THE MORNING ORALLY ONCE A DAY TAKING AMLODIPINE BESYLATE 5 MG TABLET 1 TABLET ORALLY ONCE A DAY TAKING TORSEMIDE 100 MG TABLET 1 TABLET ORALLY ONCE A DAY TAKING CARVEDILOL 6.25 MG TABLET 3 TABS ORALLY BID TAKING OMEPRAZOLE 40 MG CAPSULE DELAYED RELEASE 1 CAPSULE ORALLY ONCE A DAY TAKING SPIRONOLACTONE 25 MG TABLET 1 TABLET ORALLY TAKING NYSTATIN 933124 UNIT/ML SUSPENSION 5 ML ORALLY SWISH AND SWALLOW 4 TIMES A DAY TAKING PLAVIX 75 MG TABLET 1 TABLET ORALLY ONCE A DAY TAKING REQUIP 0.25 MG 1-2 TABLETS 1-3 HOURS BEFORE BED TAKING LORAZEPAM 1 MG TABLET 1 TABLET AT BEDTIME NEEDED ORALLY ONCE A DAY MEDICATION LIST REVIEWED AND RECONCILED WITH THE PATIENT PAST MEDICAL HISTORY LAST COLONONSCPY 2000 LAST MAMMOGRAM-2013 LAST PAP N/A SECONDARY TO AGE OVER 69, NOT HIGH RISK DM DEPRESSION NARCOTIC WITHDRAWAL (OVERDOSE) HYPERTENSION ANEMIA HYPERLIPIDEMIA CAD MYALGIA DUE TO ZOCOR BREAST CANCER, LEFT DUCTAL CARCINOMA IN SITU., S/P RADIATION THERAPY. 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, EF 35%, ALLERGIES AMARYL: SHAKINESS - ALLERGY STRAWBERRY: MOUTH BLISTERS - ALLERGY ZOCOR 20: MYALGIAS &ARTHRALGIAS - ALLERGY CRESTOR : MYALGIA & ARTHRALGIA - ALLERGY CODEINE: BURNING UPSET STOMAC - SIDE EFFECTS FENTANYL: UPSET STOMACH - SIDE EFFECTS GABAPENTIN: BALANCE ISSUES, HALUCINATION - SIDE EFFECTS TRAZADONE: CONFUSION - SIDE EFFECTS LYRICA: DYSPNEA - ALLERGY BYETTA 10 MCG PEN: WEIRD FEELING - SIDE EFFECTS GLIMEPIRIDE: UNKNOWN AMOXICILLIN: GI UPSET - SIDE EFFECTS CI PIGMENT BLUE 63: UNKNOWN DULOXETINE HCL: GI UPSET - SIDE EFFECTS EXENATIDE: UNKNOWN SURGICAL HISTORY KNEE REPLACEMENT (RIGHT) 2010 HYSTERECTOMY GALL BLADDER ARTHOSCOPY PRIOR TO RT KNEE REPLACEMENT DHARA CARPAL TUNNEL KNEE REPLACEMENT (LEFT) LEFT LUMPECTOMY 04/23/[address] RENAE 11/28/15 [facility] DRUG ELUTING STENT 2007 FAMILY HISTORY FATHER: , CANCER, COLON, DIAGNOSED WITH CANCER MOTHER: , CVA, CARDIAC DISEASE, STROKE, HEART DISEASE SIBLINGS: , HEART PROBLEMS--CVA, STROKE, OTHER 3 SISTER(S) . 2 SON(S) , 1 DAUGHTER(S) - HEALTHY. FATHER-PROSTATE CA\[id number], ARTHRITIS\NSISTER-STROKE. SOCIAL HISTORY GENERAL: TOBACCO USE ARE YOU A:FORMER SMOKER HOW LONG HAS IT BEEN SINCE YOU LAST SMOKED?> 10 YEARS LUNG CANCER SCREENING SMOKING STATUS:FORMER SMOKER IS THE PATIENT BETWEEN THE AGE OF 57 AND 79?YES HAVE YOU QUIT SMOKING WITHIN THE PAST 15 YEARS?YES HAS THE PATIENT EVER BEEN DIAGNOSED WITH LUNG CANCER?NO PAIN CLINIC PFS, CLERGY, PUBLIC HEALTH REFERRALS PFS REFERRAL NEEDED?NO CLERGY REFERRAL NEEDED?NO PUBLIC HEALTH REFERRAL NEEDED?NO WAS THE PROVIDER NOTIFIED OF ANY PERTINENT INFO?NO HAS THE PATIENT BEEN EDUCATED REGARDING HIS/HER PLAN OF CARE?YES HAS THE PATIENT BEEN EDUCATED REGARDING PAIN, THE RISK FOR PAIN, THE IMPORTANCE OF EFFECTIVE PAIN MANAGEMENT, AND THE PAIN ASSESSMENT PROCESS?YES LATEX QUESTIONNAIRE LATEX ALLERGY : HAVE YOU EVER DEVELOPED ANY TYPE OF REACTION AFTER HANDLING LATEX PRODUCTS SUCH RUBBER GLOVES, CONDOMS, DIAPHRAGMS, BALLOONS, SOCKS, OR UNDERWEAR?NO LATEX ALLERGY : HAVE YOU EVER DEVELOPED ANY TYPE OF REACTION DURING OR AFTER DENTAL APPOINTMENT, VAGINAL/RECTAL EXAMINATION, SURGICAL PROCEDURE, OR ANY OTHER EXPOSURE?NO DATE ASKED : 08/19/2018 LATEX RISK : HAVE YOU EVER HAD ANY DIFFICULTY BREATHING OR HIVES AFTER EATING OR HANDLING ANY FRUITS, OR VEGETABLES; SUCH KIWI, BANANAS, STONE FRUITS, OR CHESTNUTSNO LATEX RISK : DO YOU HAVE A PREVIOUS PERSONAL HISTORY OF MORE THAN NINE SURGERIES, SPINA BIFIDA, OR REPEATED CATHERTIZATIONS? NO LATEX RISK : ARE YOU FREQUENTLY EXPOSED TO LATEX PRODUCTS IN YOUR OCCUPATION?NO ADVANCE DIRECTIVE ADVANCE DIRECTIVE DISCUSSED WITH PATIENT:YES HCP IS MICHELE [phone] SAMARITAN [id number] BUDDHIST LANGUAGE LANGUAGES SPOKEN:CZECH BMI CARE GOAL FOLLOW-UP ABOVE NORMAL BMI FOLLOW-UPDIETARY MANAGEMENT EDUCATION, GUIDANCE, AND COUNSELING SEXUAL HX HAD SEX IN THE LAST 12 MONTHS (VAGINAL, ORAL, OR ANAL)?NO HAVE YOU EVER HAD AN STD?NO LEARNING BARRIERS / SPECIAL NEEDS BARRIERS TO LEARNING?NO HEARING IMPAIRED?NO VISION IMPAIRED?YES COGNITIVELY IMPAIRED?NO :CORRECTIVE LENSES READINESS TO LEARN?YES LEARNING PREFERENCES?NO LEARNING CAPABILITIES PRESENT?YES EMOTIONAL BARRIERS?NO SPECIAL DEVICES?YES :CANE 12/24/17 REVIEWED WITH PT. AD01/25/18 REVIEWED WITH PT LAS03/30/18 0901 REVIEWED WITH PT LAS06/20/18 1444 REVIEWED WITH PATIENT BVREVIEWED WITH PT 11/15/18 1437 BV. HOSPITALIZATION/MAJOR DIAGNOSTIC PROCEDURE CHF/ ANEMIA 06/04/2016 SURGERY PNEUMONIA ([facility]) SEPTEMBER 2016 REVIEW OF SYSTEMS REVIEWED BY: PROVIDER: LAURA GE-Elder . CONSTITUTIONAL: ANY CHANGE IN YOUR MEDICAL CONDITION? NO . CHILLS NO . FEVER NO . INFECTION: DO YOU HAVE NEW INFECTIONS? NO . DO YOU HAVE HISTORY OF MRSA? NO . MUSCULOSKELETAL: ANY NEW PATTERNS OF PAIN OR NUMBNESS? NO . GASTROENTEROLOGY: ANY NEW CHANGE IN BOWEL CONTROL? NO . GENITOURINARY: ANY NEW CHANGE IN BLADDER CONTROL? NO . IS THERE A CHANCE YOU COULD BE ? NO . HEMATOLOGY/LYMPH: DO YOU TAKE ANY BLOOD THINNERS? (FOR EXAMPLE- COUMADIN, PLAVIX, AGGRENOX, PLATEL, PRADAXA, OR XARELTO) NO . WHEN WAS YOUR LAST DOSE? DATE: TIME: . NEUROLOGY: HAVE YOU FALLEN IN THE PAST 12 MONTHS? NO . ANY NEW EXTREMITY NUMBNESS OR WEAKNESS? NO . CARDIOLOGY: DO YOU HAVE A PACEMAKER OR DEFIBRILLATOR? NO . RESPIRATORY: HAVE YOU BEEN SICK IN THE PAST WEEK? NO . FEVER NO . FLU LIKE SYMPTOMS? NO . COUGH NO . INTEGUMENTARY: DO YOU HAVE ANY RASHES OR OPEN SORES? NO . ALLERGIC/IMMUNO: ARE YOU ALLERGIC TO IV DYE? NO . ANY NEW ALLERGIES? NO . PSYCHIATRIC: DO YOU HAVE THOUGHTS OF HURTING YOURSELF OR SOMEONE ELSE? NO . ARE YOU ABUSED, NEGLECTED, OR IN AN UNSAFE ENVIRONMENT? NO . ENDOCRINOLOGY: ARE YOU DIABETIC? NO . OTHER: DO YOU NEED ANY PRESCRIPTIONS? NO . IF YES, PLEASE LIST: ____ . ANY NEW PROBLEMS WITH YOUR MEDICATIONS? NO . WHEN DID YOU LAST EAT? ____ . WHEN DID YOU LAST DRINK? ____ . WHAT DID YOU LAST DRINK? ____ . NAME OF PERSON DRIVING YOU HOME? ____ . DO YOU HAVE ANY OTHER QUESTIONS OR CONCERNS NO . VITAL SIGNS WT 211.4 LBS, HT 64.5 IN, BMI 35.72 INDEX, BP 165/68 MM HG, HR 68 /MIN, RR 18 /MIN, TEMP 97.4 F, OXYGEN SAT % 93%, NA INITIALS AW 1409, REVIEWED BY: BV. EXAMINATION GENERAL EXAMINATION: GENERAL APPEARANCE:NO ACUTE DISTRESS, WELL NOURISHED AND HYDRATED. LUNGS:CLEAR TO AUSCULTATION BILATERALLY, NO WHEEZES, RHONCHI, RALES. HEART:NO MURMURS, REGULAR RATE AND RHYTHM. BACK:FACET TENDERNESS NOTED OVER L4-L5, L5-S1. SKIN IN SURROUNDING AREA SHOWS NO EVIDENCE OF ERYTHEMA, INCREASED WARMTH, AND/OR SKIN ERUPTIONS. POSITIVE MODIFIED STRAIGHT LEG RAISE TEST BILATERALLY. ASSESSMENTS INTERVERTEBRAL DISC DISORDER WITH RADICULOPATHY OF LUMBAR REGION - M51.16 (PRIMARY) TREATMENT INTERVERTEBRAL DISC DISORDER WITH RADICULOPATHY OF LUMBAR REGION NOTES: FIRST DIAGNOSTIC FOR BILATERAL FACETS AT L4-L5 L5-S1 . CLINICAL NOTES: 78 YEAR OLD FEMALE IN WITH A HX OF LOW BACK PAIN WITH RADICULOPATHY. SHE RECEIVED A FACET BLOCK AT L4-L5, L5-S1 IN MAY AND REPORTS RELIEF OF SYMPTOMS X 1 MONTH. GIVEN PRESENTING SYMPTOMS AND RESULTS OF PHYSICAL EXAMINATION RECOMMENDED BILATERAL L4-L5, L5-S1 DIAGNOSTICS FOR POTENTIAL RFA. WILL FOLLOW UP POST PROCEDURE. PATIENT HAS EXPRESSED UNDERSTANDING OF AND WAS IN AGREEMENT WITH TX PLAN. OTHERS NOTES: OPTIONS: RADIOFREQUENCY ABLATION MATERIAL WAS PRINTED. CLINICAL NOTES: DIAGNOSTICS PRIOR TO RFA L4-L5 L5-S1. PREVENTIVE MEDICINE PAIN CLINIC TEACHING: PROCEDURE TEACHING PT GIVEN WRITTEN AND VERBAL EDUCATION ON RADIOFREQUENCY. PT ALSO GIVEN WRITTEN AND VERBAL PRE-PROCEDURE INSTRUCTIONS. PT VERBALIZES UNDERSTANDING OF ALL EDUCATION AND INSTRUCTIONS. KAITY CONRAD 11/15/2018 3:07:26 PM > . DISPOSITION & COMMUNICATION FOLLOW UP POST PROCEDURE (REASON: FIRST DIAGNOSTIC FOR BILATERAL FACFIRST DIAGNOSTIC FOR BILATERAL FACETS AT L4-L5 L5-S1 ) ELECTRONICALLY SIGNED BY LUMA BURGOS ON 11/16/2018 AT 10:00 AM EDT DISCLAIMER : THIS IS A VISIT SUMMARY EXTRACTED FROM THE [employer] CHART. IT IS NOT A COPY OF THE [employer] PROGRESS NOTE. GRICEL
== END ==
LOC: M PAIN 14:00
PROVIDERS: ATTEND Family Medicine
DX: M51.16 Intervertebral disc disorders with radiculopathy, lumbar region (principal); E11.9 Type 2 diabetes mellitus without complications; F32.9 Major depressive disorder, single episode, unspecified; I11.0 Hypertensive heart disease with heart failure; I50.9 Heart failure, unspecified; R68.2 Dry mouth, unspecified; D64.9 Anemia, unspecified; E78.5 Hyperlipidemia, unspecified; I25.10 Atherosclerotic heart disease of native coronary artery without angina pectoris; Z85.3 Personal history of malignant neoplasm of breast; Z92.3 Personal history of irradiation; Z95.5 Presence of coronary angioplasty implant and graft; Z96.653 Presence of artificial knee joint, bilateral; Z87.891 Personal history of nicotine dependence; Z79.4 Long term (current) use of insulin; Z79.02 Long term (current) use of antithrombotics/antiplatelets; Z79.899 Other long term (current) drug therapy; Z88.0 Allergy status to penicillin; Z88.5 Allergy status to narcotic agent; Z88.8 Allergy status to other drugs, medicaments and biological substances; Z91.018 Allergy to other foods

== ENCOUNTER → 2018-12-09 | Outpatient (REF) | payer MEDICARE ==
[2018-12-09 11:38] LABS: HEMOGLOBIN A1c 7.3 %
[2018-12-09 11:44] LABS: ALBUMIN 3.2 GM/DL (3.2-5.2); BILIRUBIN,TOTAL 0.4 MG/DL (0.2-1.0); CALCIUM LEVEL 9.1 MG/DL (8.8-10.2); CREATININE FOR GFR 1.21 MG/DL (0.55-1.30); GLOMERULAR FILTRATION RATE 46.1 (>39); POTASSIUM SERUM 3.9 MEQ/L (3.5-5.1); THYROID STIMULATING HORMONE 2.23 uIU/ML (0.358-3.740); TOTAL PROTEIN 7.2 GM/DL (6.4-8.2)
[2018-12-09 11:50] LABS: CREATININE, URINE 74.6 MG/DL; MAU/CREAT RATIO 172.9 MCG/MG (0.0-30.0)
== END ==
LOC: M SFHCCLAY 07:02
PROVIDERS: ATTEND Family Medicine
DX: I25.10 Atherosclerotic heart disease of native coronary artery without angina pectoris (principal); I10 Essential (primary) hypertension; E11.8 Type 2 diabetes mellitus with unspecified complications

== ENCOUNTER → 2019-01-11 | Outpatient (CLI) | payer MEDICARE ==
[~2019-01-11] MED LIST changes: +BUPIVACAINE HCL 0.25% 30 ML VIAL As Ordered ONE; +ISOVUE-M 200 41% 20ML VIAL (Q9966) As Ordered ONE; +LIDOCAINE 1% SDV INJ 30 ML VIAL As Ordered ONE
--- NOTE | 2019-01-11 15:32 | REP ---
C-ARM VIEWS LUMBAR SPINE: Clinical history: Pain. Three C-Arm views of lower lumbar spine performed during facet block injection by Dr. Khalil. Bolckow are seen along the lower lumbar facets and a small amount of contrast is injected. 56 seconds fluoroscopy time utilized. Electronically Signed by Abdoul Galindo MD 01/13/2019 10:46 A
--- NOTE | 2019-01-17 01:13 | ECWPNPC ---
PATIENT NAME: WEN SCHWAB : 1940 GENDER: FEMALE VISIT DATE: 01/11/2019 DISCHARGE DATE: 01/11/19 134 VISIT LOCKED DATE TIME: PHYSICIAN: TOAN BURK MD PHYSICIAN PAGER NO: [phone] RESOURCE: TOAN BURK MD REASON FOR APPOINTMENT 1. BILAT LUMBAR DIAGNOSTIC FB HISTORY OF PRESENT ILLNESS HISTORY OF PRESENT ILLNESS: PAIN THE PATIENT DESCRIBES THE PAIN... FALL RISK SCREENING: SCREENING :NO FALLS REPORTED IN THE LAST YEAR CURRENT MEDICATIONS TAKING NITROGLYCERIN 0.4 MG TABLET SUBLINGUAL DIRECTED SUBLINGUAL TAKING TYLENOL 325 MG TABLET 1 TABLET NEEDED ORALLY EVERY 4 HRS TAKING VENTOLIN HFA 108 (90 BASE) MCG/ACT AEROSOL SOLUTION 2 PUFFS NEEDED INHALATION EVERY 6 HRS TAKING TRIAMCINOLONE ACETONIDE (PF) CREAM TO ELBOWS NEEDED TAKING CLARITIN 10 MG TABLET 1 TABLET ORALLY ONCE A DAY TAKING MIRALAX - POWDER DIRECTED ORALLY TAKING AMLODIPINE BESYLATE 5 MG TABLET 1 TABLET ORALLY ONCE A DAY TAKING TORSEMIDE 100 MG TABLET 1/2 TABLET ORALLY TWICE A DAY TAKING OMEPRAZOLE 40 MG CAPSULE DELAYED RELEASE 1 CAPSULE ORALLY ONCE A DAY TAKING SPIRONOLACTONE 25 MG TABLET 1 TABLET ORALLY ONCE A DAY TAKING NYSTATIN [id number] UNIT/ML SUSPENSION 5 ML ORALLY SWISH AND SWALLOW 4 TIMES A DAY TAKING PLAVIX 75 MG TABLET 1 TABLET ORALLY ONCE A DAY, NOTES: 01-01-19 0900 TAKING NOVOLOG FLEXPEN 100 UNIT/ML SOLUTION PEN-INJECTOR DIRECTED SUBCUTANEOUS , NOTES: 01-10-19729 TAKING LANTUS SOLOSTAR 100 UNIT/ML SOLUTION PEN-INJECTOR 32 UNITS SUBCUTANEOUS DAILY, NOTES: 01-10-191999 TAKING LORAZEPAM 1 MG TABLET 1 TABLET AT BEDTIME NEEDED ORALLY ONCE A DAY, NOTES: 01-10-192099 TAKING REQUIP 0.25 MG 1-2 TABLETS 1-3 HOURS BEFORE BED AT BEDTIME TAKING CARVEDILOL 6.25 MG TABLET 2 TABS ORALLY TWICE A DAY TAKING WELLBUTRIN XL 300 MG TABLET EXTENDED RELEASE 24 HOUR 1 TABLET IN THE MORNING ORALLY ONCE A DAY TAKING WELLBUTRIN XL 150 MG TABLET EXTENDED RELEASE 24 HOUR 1 TABLET IN THE MORNING ORALLY ONCE A DAY TAKING SERTRALINE HCL 50 MG TABLET 1 TABLET ORALLY ONCE A DAY TAKING NYSTATIN 766141 UNIT/GM POWDER 1 APPLICATION TO AFFECTED AREA EXTERNALLY TWICE A DAY MEDICATION LIST REVIEWED AND RECONCILED WITH THE PATIENT PAST MEDICAL HISTORY LAST COLONONSCPY 2000 LAST MAMMOGRAM-2013 LAST PAP N/A SECONDARY TO AGE OVER 69, NOT HIGH RISK DM DEPRESSION NARCOTIC WITHDRAWAL (OVERDOSE) HYPERTENSION ANEMIA HYPERLIPIDEMIA CAD MYALGIA DUE TO ZOCOR BREAST CANCER, LEFT DUCTAL CARCINOMA IN SITU., S/P RADIATION THERAPY. 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, EF 35%, ALLERGIES AMARYL: SHAKINESS - ALLERGY STRAWBERRY: MOUTH BLISTERS - ALLERGY ZOCOR 20: MYALGIAS &ARTHRALGIAS - ALLERGY CRESTOR : MYALGIA & ARTHRALGIA - ALLERGY CODEINE: BURNING UPSET STOMAC - SIDE EFFECTS FENTANYL: UPSET STOMACH - SIDE EFFECTS GABAPENTIN: BALANCE ISSUES, HALUCINATION - SIDE EFFECTS TRAZADONE: CONFUSION - SIDE EFFECTS LYRICA: DYSPNEA - ALLERGY BYETTA 10 MCG PEN: WEIRD FEELING - SIDE EFFECTS GLIMEPIRIDE: UNKNOWN AMOXICILLIN: GI UPSET - SIDE EFFECTS CI PIGMENT BLUE 63: UNKNOWN DULOXETINE HCL: GI UPSET - SIDE EFFECTS EXENATIDE: UNKNOWN SURGICAL HISTORY KNEE REPLACEMENT (RIGHT) 2010 HYSTERECTOMY GALL BLADDER ARTHOSCOPY PRIOR TO RT KNEE REPLACEMENT DHARA CARPAL TUNNEL KNEE REPLACEMENT (LEFT) LEFT LUMPECTOMY 04/23/[address] RENAE 11/28/15 RCA DRUG ELUTING STENT 2007 TONGUE BX (NEGATIVE) 11/2018 FAMILY HISTORY FATHER: , CANCER, COLON, DIAGNOSED WITH CANCER MOTHER: , CVA, CARDIAC DISEASE, HEART DISEASE, STROKE SIBLINGS: , HEART PROBLEMS--CVA, STROKE, OTHER 3 SISTER(S) . 2 SON(S) , 1 DAUGHTER(S) - HEALTHY. FATHER-PROSTATE [id number]-[id number], ARTHRITIS\NSISTER-STROKE. SOCIAL HISTORY GENERAL: TOBACCO USE ARE YOU A:FORMER SMOKER HOW LONG HAS IT BEEN SINCE YOU LAST SMOKED?> 10 YEARS LANGUAGE LANGUAGES SPOKEN:GERMAN BMI CARE GOAL FOLLOW-UP ABOVE NORMAL BMI FOLLOW-UPDIETARY MANAGEMENT EDUCATION, GUIDANCE, AND COUNSELING RECREATIONAL DRUG USE DRUG USE?NO DENIES12/06/2018 LEARNING BARRIERS / SPECIAL NEEDS CHANGE FROM LAST VISIT?NO 12/06/2018 BARRIERS TO LEARNING?NO HEARING IMPAIRED?NO VISION IMPAIRED?YES COGNITIVELY IMPAIRED?NO :CORRECTIVE LENSES READINESS TO LEARN?YES LEARNING PREFERENCES?NO LEARNING CAPABILITIES PRESENT?YES EMOTIONAL BARRIERS?NO SPECIAL DEVICES?YES :CANE 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 NEEDED?NO LUNG CANCER SCREENING SMOKING STATUS:FORMER SMOKER IS THE PATIENT BETWEEN THE AGE OF 57 AND 79?YES HAVE YOU QUIT SMOKING WITHIN THE PAST 15 YEARS?YES HAS THE PATIENT EVER BEEN DIAGNOSED WITH LUNG CANCER?NO PAIN CLINIC PFS, CLERGY, PUBLIC HEALTH REFERRALS PFS REFERRAL NEEDED?NO CLERGY REFERRAL NEEDED?NO PUBLIC HEALTH REFERRAL NEEDED?NO WAS THE PROVIDER NOTIFIED OF ANY PERTINENT INFO?NO HAS THE PATIENT BEEN EDUCATED REGARDING HIS/HER PLAN OF CARE?YES HAS THE PATIENT BEEN EDUCATED REGARDING PAIN, THE RISK FOR PAIN, THE IMPORTANCE OF EFFECTIVE PAIN MANAGEMENT, AND THE PAIN ASSESSMENT PROCESS?YES LATEX QUESTIONNAIRE LATEX ALLERGY : HAVE YOU EVER DEVELOPED ANY TYPE OF REACTION AFTER HANDLING LATEX PRODUCTS SUCH RUBBER GLOVES, CONDOMS, DIAPHRAGMS, BALLOONS, SOCKS, OR UNDERWEAR?NO LATEX ALLERGY : HAVE YOU EVER DEVELOPED ANY TYPE OF REACTION DURING OR AFTER DENTAL APPOINTMENT, VAGINAL/RECTAL EXAMINATION, SURGICAL PROCEDURE, OR ANY OTHER EXPOSURE?NO DATE ASKED : 08/19/2018 LATEX RISK : HAVE YOU EVER HAD ANY DIFFICULTY BREATHING OR HIVES AFTER EATING OR HANDLING ANY FRUITS, OR VEGETABLES; SUCH KIWI, BANANAS, STONE FRUITS, OR CHESTNUTSNO LATEX RISK : DO YOU HAVE A PREVIOUS PERSONAL HISTORY OF MORE THAN NINE SURGERIES, SPINA BIFIDA, OR REPEATED CATHERIZATIONS? NO LATEX RISK : ARE YOU FREQUENTLY EXPOSED TO LATEX PRODUCTS IN YOUR OCCUPATION?NO CAFFEINE CAFFEINE USE?YES HOW OFTEN AND HOW MUCH? 1-2 DAILY ADVANCE DIRECTIVE ADVANCE DIRECTIVE DISCUSSED WITH PATIENT:YES HCP IS MICHELE [phone] SAMARITAN [id number] DRUZE ALCOHOL SCREENING DID YOU HAVE A DRINK CONTAINING ALCOHOL IN THE PAST YEAR?NO POINTS0 INTERPRETATIONNEGATIVE SEXUAL HX HAD SEX IN THE LAST 12 MONTHS (VAGINAL, ORAL, OR ANAL)?NO HAVE YOU EVER HAD AN STD?NO 12/24/17 REVIEWED WITH PT. AD01/25/18 REVIEWED WITH PT LAS03/30/18 0901 REVIEWED WITH PT LAS06/20/18 1444 REVIEWED WITH PATIENT BVREVIEWED WITH PT 11/15/18 1437 BV. HOSPITALIZATION/MAJOR DIAGNOSTIC PROCEDURE CHF/ ANEMIA 06/04/2016 [facility] 2016 REVIEW OF SYSTEMS REVIEWED BY: PROVIDER: . CONSTITUTIONAL: ANY CHANGE IN YOUR MEDICAL CONDITION? NO . CHILLS NO . FEVER NO . INFECTION: DO YOU HAVE NEW INFECTIONS? NO . DO YOU HAVE HISTORY OF MRSA? NO . MUSCULOSKELETAL: ANY NEW PATTERNS OF PAIN OR NUMBNESS? NO . GASTROENTEROLOGY: ANY NEW CHANGE IN BOWEL CONTROL? NO . GENITOURINARY: ANY NEW CHANGE IN BLADDER CONTROL? YES, REPORTS INCONTINENCE FOR PAST FEW MONTHS IF WAITS TOO LONG . IS THERE A CHANCE YOU COULD BE ? NO . HEMATOLOGY/LYMPH: DO YOU TAKE ANY BLOOD THINNERS? (FOR EXAMPLE- COUMADIN, PLAVIX, AGGRENOX, PLATEL, PRADAXA, OR XARELTO) NO . WHEN WAS YOUR LAST DOSE? DATE: TIME: . NEUROLOGY: HAVE YOU FALLEN IN THE PAST 12 MONTHS? YES . ANY NEW EXTREMITY NUMBNESS OR WEAKNESS? NO . CARDIOLOGY: DO YOU HAVE A PACEMAKER OR DEFIBRILLATOR? NO . RESPIRATORY: HAVE YOU BEEN SICK IN THE PAST WEEK? NO . FEVER NO . FLU LIKE SYMPTOMS? NO . COUGH NO . INTEGUMENTARY: DO YOU HAVE ANY RASHES OR OPEN SORES? NO . ALLERGIC/IMMUNO: ARE YOU ALLERGIC TO IV DYE? NO . ANY NEW ALLERGIES? NO . PSYCHIATRIC: DO YOU HAVE THOUGHTS OF HURTING YOURSELF OR SOMEONE ELSE? NO . ARE YOU ABUSED, NEGLECTED, OR IN AN UNSAFE ENVIRONMENT? NO . ENDOCRINOLOGY: ARE YOU DIABETIC? YES, FSBS 174 AT 0400 . OTHER: DO YOU NEED ANY PRESCRIPTIONS? NO . IF YES, PLEASE LIST: ____ . ANY NEW PROBLEMS WITH YOUR MEDICATIONS? NO . WHEN DID YOU LAST EAT? 01-10-19 2100 . WHEN DID YOU LAST DRINK? 01-11-19 0830 . WHAT DID YOU LAST DRINK? SODA . NAME OF PERSON DRIVING YOU HOME? NEIL ENGLISH . DO YOU HAVE ANY OTHER QUESTIONS OR CONCERNS NO . VITAL SIGNS WT 199 LBS, HT 64.5 IN, BMI 33.63 INDEX, BP 160/70 MANUAL, HR 77 /MIN, RR 18 /MIN, TEMP 96.9 F, OXYGEN SAT % 94%, NA INITIALS AW 1126, REVIEWED BY: LS. ASSESSMENTS SPONDYLOSIS OF LUMBAR REGION WITHOUT MYELOPATHY OR RADICULOPATHY - M47.816 (PRIMARY) SPONDYLOSIS OF LUMBOSACRAL REGION WITHOUT MYELOPATHY OR RADICULOPATHY - M47.817 PROCEDURES PN LUMBAR FACET BLOCK DIAGNOSTIC PRE PROCEDURE DIAGNOSIS LUMBAR SPONDYLOSIS, LUMBOSACRAL SPONDYLOSIS POST PROCEDURE DIAGNOSIS LUMBAR SPONDYLOSIS, LUMBOSACRAL SPONDYLOSIS PROCEDURE BILATERAL L4-L5, L5-S1 FACET BLOCK DIAGNOSTIC NUMBER [address] TOAN BURK CRYPTOGRAPHIC CLERK NONE ANESTHESIA LOCAL PRE PROCEDURE NOTE THE PATIENT WITH HISTORY OF CHRONIC LOW BACK PAIN. I EVALUATED THE PATIENT AND REVIEWED THE CHART. I WENT OVER THE RISKS, ALTERNATIVES, AND BENEFITS ASSOCIATED WITH THIS PROCEDURE. THE PATIENT WOULD LIKE TO PROCEED AND GAVE CONSENT TO PERFORM THE PROCEDURE. AGREED WITH THE PATIENT WE ARE DOING THIS PROCEDURE TO DETERMINE IF THE PATIENT IS A CANDIDATE FOR A RADIOFREQUENCY ABLATION OF THE FACETS JOINTS. THE PATIENT DENIES UNEXPLAINABLE WEIGHT LOSS, FEVER, CHILLS, OR NEW CHANGES IN URINARY OR BOWEL CONTROL DESCRIPTION OF PROCEDURE THE PATIENT WAS BROUGHT TO THE PROCEDURE ROOM AND PLACED IN THE PRONE POSITION. THE LUMBOSACRAL AREA WAS CLEANED WITH CHLORAPREP SOLUTION AND DRAPED ASEPTICALLY. THE PROCEDURE WAS DONE UNDER STERILE CONDITIONS. I CHECKED LATERALITY AND THE LEVEL WHERE THE PROCEDURE WAS GOING TO BE PERFORMED WITH THE PATIENT AND THE SUPPORTING STAFF AT THE MOMENT OF THE TIME OUT IN THE PROCEDURE ROOM. UNDER FLUOROSCOPIC GUIDANCE, TARGETS WERE SELECTED AT THE INTERSECTION OF THE RIGHT AND LEFT TRANSVERSE PROCESS OF L4, L5 AND ALA OF S1 WITH ITS RESPECTIVE SUPERIOR ARTICULAR PROCESS. LIDOCAINE WAS USED TO NUMB THE SKIN AND THE SUBCUTANEOUS TISSUE BELOW IT. SPINAL NEEDLE, 22-GAUGE WAS ADVANCED UNDER FLUOROSCOPIC GUIDANCE AND FOLLOWING PATIENT FEEDBACK UNTIL THE TARGETS WERE REACHED. POSITION OF THE NEEDLES WAS VERIFIED WITH AP AND LATERAL VIEWS. AFTER PROPER POSITION OF THE NEEDLES WAS ACHIEVED, ISOVUE M-200 CONTRAST WAS INJECTED AT EACH SITE SHOWING ADEQUATE SPREAD OF THE DYE. THEN A SOLUTION OF 0.4 ML OF BUPIVACAINE 0.25% WAS INJECTED AT EACH SITE. THERE WAS NO EVIDENCE OF BLOOD, PARESTHESIA OR CEREBROSPINAL FLUID DURING THE PROCEDURE. THE PATIENT WAS SENT TO THE RECOVERY ROOM. THE PATIENT WAS MOVING THE EXTREMITIES AND DOING WELL. THERE WAS NO COMPLICATION DURING THE PROCEDURE. FLUOROSCOPY TIME WAS 56 SECONDS POST PROCEDURE NOTE THE PATIENT WILL DOCUMENT HIS PAIN LEVEL AND RESPONSE TO THIS PROCEDURE EVERY 30 MINUTES. THE PATIENT WILL BE SEEN IN A FOLLOW UP IN THE NEXT FEW WEEKS. FURTHER DETERMINATION FOR HIS CASE WILL BE DONE AT THE NEXT VISIT. INSTRUCTIONS WERE GIVEN, QUESTIONS WERE ANSWERED, AND THE PATIENT EXPRESSED UNDERSTANDING AND AGREED WITH THE PLAN. I, OBIE EDMONDSON, DOCUMENTED THE ABOVE INFORMATION ACTING A SCRIBE FOR DR. BURK. I HAVE REVIEWED THE ABOVE DOCUMENT, WRITTEN BY OBIE ABEBE AND I VERIFY THAT IT IS ACCURATE. DIAGNOSTIC IMAGING [facility] FACET BLOCK (PAIN)[id number] PROCEDURE CODES 89919 INJ PARAVERT F JNT L/S 1 LEV, MODIFIERS: 50 [id number] INJ PARAVERT F JNT L/S 2 LEV, MODIFIERS: 50 [id number] RADXPS IN END [id number] PXD DISPOSITION & COMMUNICATION FOLLOW UP 3 WEEKS ELECTRONICALLY SIGNED BY TOAN BURK MD, MD ON 01/16/2019 AT 12:01 PM EDT DISCLAIMER : THIS IS A VISIT SUMMARY EXTRACTED FROM THE [employer] CHART. IT IS NOT A COPY OF THE [employer] PROGRESS NOTE. MTDD
== END ==
LOC: M PAIN 11:15
PROVIDERS: ATTEND Anesthesiology
DX: G89.29 Other chronic pain (principal); M47.816 Spondylosis without myelopathy or radiculopathy, lumbar region; M47.817 Spondylosis without myelopathy or radiculopathy, lumbosacral region; M54.5 Low back pain; E11.8 Type 2 diabetes mellitus with unspecified complications; I10 Essential (primary) hypertension; Z79.4 Long term (current) use of insulin; Z79.899 Other long term (current) drug therapy; Z87.891 Personal history of nicotine dependence; Z88.0 Allergy status to penicillin; Z88.5 Allergy status to narcotic agent; Z88.8 Allergy status to other drugs, medicaments and biological substances
CPT/HCPCS: 64493; 64494; Q9966

== ENCOUNTER → 2019-01-31 | Outpatient (CLI) | payer MEDICARE ==
[~2019-01-31] MED LIST changes: -BUPIVACAINE HCL 0.25% 30 ML VIAL As Ordered ONE; -ISOVUE-M 200 41% 20ML VIAL (Q9966) As Ordered ONE; -LIDOCAINE 1% SDV INJ 30 ML VIAL As Ordered ONE
--- NOTE | 2019-02-02 00:24 | ECWPNPC ---
PATIENT NAME: WEN SCHWAB : 1940 GENDER: FEMALE VISIT DATE: 01/31/2019 DISCHARGE DATE: 01/31/19 0000 VISIT LOCKED DATE TIME: PHYSICIAN: AISHWARYA CARRERA PHYSICIAN PAGER NO: [phone] RESOURCE: AISHWARYA CARRERA REASON FOR APPOINTMENT 1. POST PROC HISTORY OF PRESENT ILLNESS HISTORY OF PRESENT ILLNESS: PAIN THE PATIENT DESCRIBES THE PAIN... 78-YEAR-OLD FEMALE IN FOR POST DIAGNOSTIC FACET BLOCK FOLLOW-UP. SHE RATES HER PAIN PRIOR TO THE PROCEDURE AT A 9 OR 10 AND POSTPROCEDURE AT A 1 OUT OF 10 SHE FURTHER STATES IT WORKED WELL FOR ABOUT 2 WEEKS. SHE RATES HER PAIN CURRENTLY AT A 9 OUT OF 10 AND DESCRIBES IT ACHING, BURNING, SHARP, STABBING, SHOOTING, AND TENDER. FALL RISK SCREENING: SCREENING :NO FALLS REPORTED IN THE LAST YEAR CURRENT MEDICATIONS TAKING NITROGLYCERIN 0.4 MG TABLET SUBLINGUAL DIRECTED SUBLINGUAL TAKING TYLENOL 325 MG TABLET 1 TABLET NEEDED ORALLY EVERY 4 HRS TAKING VENTOLIN HFA 108 (90 BASE) MCG/ACT AEROSOL SOLUTION 2 PUFFS NEEDED INHALATION EVERY 6 HRS TAKING TRIAMCINOLONE ACETONIDE (PF) CREAM TO ELBOWS NEEDED TAKING CLARITIN 10 MG TABLET 1 TABLET ORALLY ONCE A DAY TAKING MIRALAX - POWDER DIRECTED ORALLY TAKING TORSEMIDE 100 MG TABLET 1/2 TABLET ORALLY TWICE A DAY TAKING OMEPRAZOLE 40 MG CAPSULE DELAYED RELEASE 1 CAPSULE ORALLY ONCE A DAY TAKING SPIRONOLACTONE 25 MG TABLET 1 TABLET ORALLY ONCE A DAY TAKING NYSTATIN [id number] UNIT/ML SUSPENSION 5 ML ORALLY SWISH AND SWALLOW 4 TIMES A DAY TAKING PLAVIX 75 MG TABLET 1 TABLET ORALLY ONCE A DAY, NOTES: 01-01-19899 TAKING NOVOLOG FLEXPEN 100 UNIT/ML SOLUTION PEN-INJECTOR DIRECTED SUBCUTANEOUS , NOTES: 01-10-19729 TAKING LANTUS SOLOSTAR 100 UNIT/ML SOLUTION PEN-INJECTOR 32 UNITS SUBCUTANEOUS DAILY, NOTES: 01-10-191999 TAKING CARVEDILOL 6.25 MG TABLET 2 TABS ORALLY TWICE A DAY TAKING WELLBUTRIN XL 300 MG TABLET EXTENDED RELEASE 24 HOUR 1 TABLET IN THE MORNING ORALLY ONCE A DAY TAKING WELLBUTRIN XL 150 MG TABLET EXTENDED RELEASE 24 HOUR 1 TABLET IN THE MORNING ORALLY ONCE A DAY TAKING SERTRALINE HCL 50 MG TABLET 1 TABLET ORALLY ONCE A DAY TAKING NYSTATIN [id number] UNIT/GM POWDER 1 APPLICATION TO AFFECTED AREA EXTERNALLY TWICE A DAY TAKING LORAZEPAM 1 MG TABLET 1 TABLET AT BEDTIME NEEDED ORALLY ONCE A DAY, NOTES: 01-10-192099 TAKING AMLODIPINE BESYLATE 5 MG TABLET 1 TABLET ORALLY ONCE A DAY TAKING REQUIP 0.25 MG 1-2 TABLETS 1-3 HOURS BEFORE BED AT BEDTIME TAKING AMLODIPINE BESYLATE 10 MG TABLET 1 TABLET ORALLY ONCE A DAY MEDICATION LIST REVIEWED AND RECONCILED WITH THE PATIENT PAST MEDICAL HISTORY LAST COLONONSCPY 2000 LAST MAMMOGRAM-2013 PAP N/A SECONDARY TO AGE OVER 69, NOT HIGH RISK DM DEPRESSION NARCOTIC WITHDRAWAL (OVERDOSE) HYPERTENSION ANEMIA HYPERLIPIDEMIA CAD MYALGIA DUE TO ZOCOR BREAST CANCER, LEFT DUCTAL CARCINOMA IN SITU., S/P RADIATION THERAPY. 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, EF 35%, ALLERGIES AMARYL: SHAKINESS - ALLERGY STRAWBERRY: MOUTH BLISTERS - ALLERGY ZOCOR 20: MYALGIAS &ARTHRALGIAS - ALLERGY CRESTOR : MYALGIA & ARTHRALGIA - ALLERGY CODEINE: BURNING UPSET STOMAC - SIDE EFFECTS FENTANYL: UPSET STOMACH - SIDE EFFECTS GABAPENTIN: BALANCE ISSUES, HALUCINATION - SIDE EFFECTS TRAZADONE: CONFUSION - SIDE EFFECTS LYRICA: DYSPNEA - ALLERGY BYETTA 10 MCG PEN: WEIRD FEELING - SIDE EFFECTS GLIMEPIRIDE: UNKNOWN AMOXICILLIN: GI UPSET - SIDE EFFECTS CI PIGMENT BLUE 63: UNKNOWN DULOXETINE HCL: GI UPSET - SIDE EFFECTS EXENATIDE: UNKNOWN SURGICAL HISTORY KNEE REPLACEMENT (RIGHT) 2010 HYSTERECTOMY GALL BLADDER ARTHOSCOPY PRIOR TO RT KNEE REPLACEMENT DHARA CARPAL TUNNEL KNEE REPLACEMENT (LEFT) LEFT LUMPECTOMY 04/23/[address] RENAE 11/28/15 RCA DRUG ELUTING STENT 2007 TONGUE BX (NEGATIVE) 11/2018 FAMILY HISTORY FATHER: , CANCER, COLON, DIAGNOSED WITH OTHER MALIGNANT NEOPLASM OF UNSPECIFIED SITE MOTHER: , CVA, CARDIAC DISEASE, UNSPECIFIED HEART DISEASE, UNSPECIFIED CEREBRAL ARTERY OCCLUSION WITH CEREBRAL INFARCTION SIBLINGS: , HEART PROBLEMS--CVA, UNSPECIFIED CEREBRAL ARTERY OCCLUSION WITH CEREBRAL INFARCTION, OTHER SPECIFIED CONDITIONS INFLUENCING HEALTH STATUS 3 SISTER(S) . 2 SON(S) , 1 DAUGHTER(S) - HEALTHY. FATHER-PROSTATE [id number], ARTHRITIS\NSISTER-STROKE. SOCIAL HISTORY GENERAL: TOBACCO USE ARE YOU A:FORMER SMOKER HOW LONG HAS IT BEEN SINCE YOU LAST SMOKED?> 10 YEARS LANGUAGE LANGUAGES SPOKEN:[place] BMI CARE GOAL FOLLOW-UP ABOVE NORMAL BMI FOLLOW-UPDIETARY MANAGEMENT EDUCATION, GUIDANCE, AND COUNSELING RECREATIONAL DRUG USE DRUG USE?NO DENIES12/06/2018 LEARNING BARRIERS / SPECIAL NEEDS CHANGE FROM LAST VISIT?NO 12/06/2018 BARRIERS TO LEARNING?NO HEARING IMPAIRED?NO VISION IMPAIRED?YES COGNITIVELY IMPAIRED?NO :CORRECTIVE LENSES READINESS TO LEARN?YES LEARNING PREFERENCES?NO LEARNING CAPABILITIES PRESENT?YES EMOTIONAL BARRIERS?NO SPECIAL DEVICES?YES :CANE SENIOR ACCOUNTANT CPA NEEDED?NO LUNG CANCER SCREENING SMOKING STATUS:FORMER SMOKER IS THE PATIENT BETWEEN THE AGE OF 57 AND 79?YES HAVE YOU QUIT SMOKING WITHIN THE PAST 15 YEARS?YES HAS THE PATIENT EVER BEEN DIAGNOSED WITH LUNG CANCER?NO PAIN CLINIC PFS, CLERGY, PUBLIC HEALTH REFERRALS PFS REFERRAL NEEDED?NO CLERGY REFERRAL NEEDED?NO PUBLIC HEALTH REFERRAL NEEDED?NO WAS THE PROVIDER NOTIFIED OF ANY PERTINENT INFO?YES HAS THE PATIENT BEEN EDUCATED REGARDING HIS/HER PLAN OF CARE?YES HAS THE PATIENT BEEN EDUCATED REGARDING PAIN, THE RISK FOR PAIN, THE IMPORTANCE OF EFFECTIVE PAIN MANAGEMENT, AND THE PAIN ASSESSMENT PROCESS?YES LATEX QUESTIONNAIRE LATEX ALLERGY : HAVE YOU EVER DEVELOPED ANY TYPE OF REACTION AFTER HANDLING LATEX PRODUCTS SUCH RUBBER GLOVES, CONDOMS, DIAPHRAGMS, BALLOONS, SOCKS, OR UNDERWEAR?NO LATEX ALLERGY : HAVE YOU EVER DEVELOPED ANY TYPE OF REACTION DURING OR AFTER DENTAL APPOINTMENT, VAGINAL/RECTAL EXAMINATION, SURGICAL PROCEDURE, OR ANY OTHER EXPOSURE?NO LATEX RISK : HAVE YOU EVER HAD ANY DIFFICULTY BREATHING OR HIVES AFTER EATING OR HANDLING ANY FRUITS, OR VEGETABLES; SUCH KIWI, BANANAS, STONE FRUITS, OR CHESTNUTSNO LATEX RISK : DO YOU HAVE A PREVIOUS PERSONAL HISTORY OF MORE THAN NINE SURGERIES, SPINA BIFIDA, OR REPEATED CATHERIZATIONS? NO LATEX RISK : ARE YOU FREQUENTLY EXPOSED TO LATEX PRODUCTS IN YOUR OCCUPATION?NO DATE ASKED : 01/31/2019 CAFFEINE CAFFEINE USE?YES HOW OFTEN AND HOW MUCH? 1-2 DAILY ADVANCE DIRECTIVE ADVANCE DIRECTIVE DISCUSSED WITH PATIENT:YES HCP IS MICHELE [phone] HOLINESS [id number] RESTORATION ALCOHOL SCREENING DID YOU HAVE A DRINK CONTAINING ALCOHOL IN THE PAST YEAR?NO POINTS0 INTERPRETATIONNEGATIVE SEXUAL HX HAD SEX IN THE LAST 12 MONTHS (VAGINAL, ORAL, OR ANAL)?NO HAVE YOU EVER HAD AN STD?NO 12/24/17 REVIEWED WITH PT. AD01/25/18 REVIEWED WITH PT LAS03/30/18 0901 REVIEWED WITH PT LAS06/20/18 1444 REVIEWED WITH PATIENT BVREVIEWED WITH PT 11/15/18 1437 BV. HOSPITALIZATION/MAJOR DIAGNOSTIC PROCEDURE CHF/ ANEMIA 06/04/2016 SURGERY PNEUMONIA ([facility]) SEPTEMBER 2016 REVIEW OF SYSTEMS REVIEWED BY: PROVIDER: LAURA GE-Elder . CONSTITUTIONAL: ANY CHANGE IN YOUR MEDICAL CONDITION? NO . CHILLS NO . FEVER NO . INFECTION: DO YOU HAVE NEW INFECTIONS? NO . DO YOU HAVE HISTORY OF MRSA? NO . MUSCULOSKELETAL: ANY NEW PATTERNS OF PAIN OR NUMBNESS? YES, PT STATES THAT PAIN HAS RETURNED . GASTROENTEROLOGY: ANY NEW CHANGE IN BOWEL CONTROL? NO . GENITOURINARY: ANY NEW CHANGE IN BLADDER CONTROL? NO . IS THERE A CHANCE YOU COULD BE ? NO . HEMATOLOGY/LYMPH: DO YOU TAKE ANY BLOOD THINNERS? (FOR EXAMPLE- COUMADIN, PLAVIX, AGGRENOX, PLATEL, PRADAXA, OR XARELTO) YES, PLAVIX . WHEN WAS YOUR LAST DOSE? DATE: TIME: . NEUROLOGY: HAVE YOU FALLEN IN THE PAST 12 MONTHS? YES, PT STATES THAT SHE FELL WHILE AT HOME, PT STATES THAT SHE WAS GOING DOWN STAIRS USING CANE AND FELL BACKWARD, NO INJURY, NO REPORT TO ED . ANY NEW EXTREMITY NUMBNESS OR WEAKNESS? NO . CARDIOLOGY: DO YOU HAVE A PACEMAKER OR DEFIBRILLATOR? NO . RESPIRATORY: HAVE YOU BEEN SICK IN THE PAST WEEK? NO . FEVER NO . FLU LIKE SYMPTOMS? NO . COUGH NO . INTEGUMENTARY: DO YOU HAVE ANY RASHES OR OPEN SORES? NO . ALLERGIC/IMMUNO: ARE YOU ALLERGIC TO IV DYE? NO . ANY NEW ALLERGIES? NO . PSYCHIATRIC: DO YOU HAVE THOUGHTS OF HURTING YOURSELF OR SOMEONE ELSE? NO . ARE YOU ABUSED, NEGLECTED, OR IN AN UNSAFE ENVIRONMENT? NO . ENDOCRINOLOGY: ARE YOU DIABETIC? YES . OTHER: DO YOU NEED ANY PRESCRIPTIONS? NO . IF YES, PLEASE LIST: ____ . ANY NEW PROBLEMS WITH YOUR MEDICATIONS? NO . WHEN DID YOU LAST EAT? ____ . WHEN DID YOU LAST DRINK? ____ . WHAT DID YOU LAST DRINK? ____ . NAME OF PERSON DRIVING YOU HOME? ____ . DO YOU HAVE ANY OTHER QUESTIONS OR CONCERNS PT PLANS TO HAVE FLU SHOT AT THE END OF JAN 2019 . VITAL SIGNS WT 199 LBS, HT 64.5 IN, BMI 33.63 INDEX, BP 140/80MANUAL, HR 79 /MIN, RR 18 /MIN, TEMP 96.9 F, OXYGEN SAT % 96%, SAFE IN ENV? (Y/N) Y, NA INITIALS NM 09:33, REVIEWED BY: KEYLA. EXAMINATION GENERAL EXAMINATION: GENERALNO ACUTE DISTRESS, WELL NOURISHED AND HYDRATED. LUNGS:CLEAR TO AUSCULTATION BILATERALLY, NO WHEEZES, RHONCHI, RALES. HEART:NO MURMURS, REGULAR RATE AND RHYTHM. BACK: TENDERNESS NOTED OVER L4-L5, L5-S1. SKIN IN SURROUNDING AREA SHOWS NO EVIDENCE OF ERYTHEMA, INCREASED WARMTH, AND/OR SKIN ERUPTIONS. INCREASED PAIN WITH FACET LOADING. ASSESSMENTS SPONDYLOSIS OF LUMBAR REGION WITHOUT MYELOPATHY OR RADICULOPATHY - M47.816 (PRIMARY) TREATMENT SPONDYLOSIS OF LUMBAR REGION WITHOUT MYELOPATHY OR RADICULOPATHY NOTES: BILATERAL L4-L5 L5-S1 FACET BLOCK DIAGNOSTIC #2. CLINICAL NOTES: 78-YEAR-OLD FEMALE IN FOR POST DIAGNOSTIC FACET BLOCK FOLLOW-UP. GIVEN PRESENTING SYMPTOMS AND RESULTS OF PHYSICAL EXAMINATION RECOMMENDED DIAGNOSTIC FACET BLOCK #2 WITH POST PROCEDURAL FOLLOW-UP. PATIENT HAS EXPRESSED UNDERSTANDING OF AND WAS IN AGREEMENT WITH TREATMENT PLAN. GIVEN TIME TO ASK QUESTIONS AND EXPRESS CONCERNS. PROCEDURE CODES FA211 ESTABILISHED PATIENT [facility] FACILITY CHARGE DISPOSITION & COMMUNICATION FOLLOW UP POSTPROCEDURE (REASON: BILATERAL L4-L5 L5-S1 FACET BLOCK DIAGNOSTIC #2) ELECTRONICALLY SIGNED BY LUMA BURGOS ON 02/01/2019 AT 09:21 AM EDT ADDENDUM: 02/01/2019 03:26 PM AISHWARYA CARRERA > RIGHT L4-L5 L5-S1 FACET BLOCK DIAGNOSTIC #2 DISCLAIMER : THIS IS A VISIT SUMMARY EXTRACTED FROM THE [employer] CHART. IT IS NOT A COPY OF THE [employer] PROGRESS NOTE. GRICEL
== END ==
LOC: M PAIN 09:30
PROVIDERS: ATTEND Family Medicine
DX: M47.816 Spondylosis without myelopathy or radiculopathy, lumbar region (principal); E11.9 Type 2 diabetes mellitus without complications; Z86.59 Personal history of other mental and behavioral disorders; I10 Essential (primary) hypertension; J45.909 Unspecified asthma, uncomplicated; E78.5 Hyperlipidemia, unspecified; Z96.653 Presence of artificial knee joint, bilateral; Z87.891 Personal history of nicotine dependence; Z88.1 Allergy status to other antibiotic agents; Z88.5 Allergy status to narcotic agent; Z88.8 Allergy status to other drugs, medicaments and biological substances; Z91.018 Allergy to other foods; Z91.09 Other allergy status, other than to drugs and biological substances; Z79.01 Long term (current) use of anticoagulants; Z79.4 Long term (current) use of insulin; Z79.899 Other long term (current) drug therapy

== ENCOUNTER → 2019-02-22 | Outpatient (CLI) | payer MEDICARE ==
--- NOTE | 2019-02-23 23:40 | ECWPNPC ---
PATIENT NAME: WEN SCHWAB : 1940 GENDER: FEMALE VISIT DATE: 02/22/2019 DISCHARGE DATE: 02/22/19 1423 VISIT LOCKED DATE TIME: PHYSICIAN: AISHWARYA CARRERA PHYSICIAN PAGER NO: [phone] RESOURCE: AISHWARYA CARRERA REASON FOR APPOINTMENT 1. DISCUSS DENIAL OF FACET BLOCK HISTORY OF PRESENT ILLNESS HISTORY OF PRESENT ILLNESS: PAIN THE PATIENT DESCRIBES THE PAIN... 78-YEAR-OLD FEMALE CHRONIC PAIN PATIENT INTO DISCUSS RECENT DENIAL FOR PROCEDURE. SHE RATES HER PAIN CURRENTLY AT A 9 OUT OF 10 AND DESCRIBES IT ACHING, SHARP, BURNING, SORE, SHOOTING, AND TENDER. FALL RISK SCREENING: SCREENING :NO FALLS REPORTED IN THE LAST YEAR CURRENT MEDICATIONS TAKING NITROGLYCERIN 0.4 MG TABLET SUBLINGUAL DIRECTED SUBLINGUAL TAKING TYLENOL 325 MG TABLET 1 TABLET NEEDED ORALLY EVERY 4 HRS TAKING VENTOLIN HFA 108 (90 BASE) MCG/ACT AEROSOL SOLUTION 2 PUFFS NEEDED INHALATION EVERY 6 HRS TAKING TRIAMCINOLONE ACETONIDE (PF) CREAM TO ELBOWS NEEDED TAKING CLARITIN 10 MG TABLET 1 TABLET ORALLY ONCE A DAY TAKING MIRALAX - POWDER DIRECTED ORALLY NEEDED TAKING TORSEMIDE 100 MG TABLET 1/2 TABLET ORALLY TWICE A DAY TAKING SPIRONOLACTONE 25 MG TABLET 1 TABLET ORALLY ONCE A DAY TAKING PLAVIX 75 MG TABLET 1 TABLET ORALLY ONCE A DAY TAKING NOVOLOG FLEXPEN 100 UNIT/ML SOLUTION PEN-INJECTOR DIRECTED SUBCUTANEOUS TAKING LANTUS SOLOSTAR 100 UNIT/ML SOLUTION PEN-INJECTOR 32 UNITS SUBCUTANEOUS DAILY TAKING WELLBUTRIN XL 300 MG TABLET EXTENDED RELEASE 24 HOUR 1 TABLET IN THE MORNING ORALLY ONCE A DAY TAKING WELLBUTRIN XL 150 MG TABLET EXTENDED RELEASE 24 HOUR 1 TABLET IN THE MORNING ORALLY ONCE A DAY TAKING SERTRALINE HCL 50 MG TABLET 1 TABLET ORALLY ONCE A DAY TAKING NYSTATIN [id number] UNIT/GM POWDER 1 APPLICATION TO AFFECTED AREA EXTERNALLY TWICE A DAY TAKING AMLODIPINE BESYLATE 5 MG TABLET 1 TABLET ORALLY ONCE A DAY TAKING REQUIP 0.25 MG 1-2 TABLETS 1-3 HOURS BEFORE BED AT BEDTIME TAKING AMLODIPINE BESYLATE 10 MG TABLET 1 TABLET ORALLY ONCE A DAY TAKING CARVEDILOL 25 MG TABLET 1 TABLET ORALLY TWICE A DAY TAKING LORAZEPAM 1 MG TABLET 1 TABLET AT BEDTIME NEEDED ORALLY ONCE A DAY TAKING OMEPRAZOLE 40 MG CAPSULE DELAYED RELEASE 1 CAPSULE ORALLY ONCE A DAY NOT-TAKING NYSTATIN [id number] UNIT/ML SUSPENSION 5 ML ORALLY SWISH AND SWALLOW 4 TIMES A DAY MEDICATION LIST REVIEWED AND RECONCILED WITH THE PATIENT PAST MEDICAL HISTORY LAST COLONONSCPY 2000 LAST MAMMOGRAM-2013 LAST PAP N/A SECONDARY TO AGE OVER 69, NOT HIGH RISK DM DEPRESSION NARCOTIC WITHDRAWAL (OVERDOSE) HYPERTENSION ANEMIA HYPERLIPIDEMIA CAD MYALGIA DUE TO ZOCOR BREAST CANCER, LEFT DUCTAL CARCINOMA IN SITU., S/P RADIATION THERAPY. 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, EF 35%, OSTEOARTHRITIS GERD CHRONIC COUGH INSOMNIA LOW BACK PAIN ALLERGIES AMARYL: SHAKINESS - ALLERGY STRAWBERRY: MOUTH BLISTERS - ALLERGY ZOCOR 20: MYALGIAS &ARTHRALGIAS - ALLERGY CRESTOR : MYALGIA & ARTHRALGIA - ALLERGY CODEINE: BURNING UPSET STOMAC - SIDE EFFECTS FENTANYL: UPSET STOMACH - SIDE EFFECTS GABAPENTIN: BALANCE ISSUES, HALUCINATION - SIDE EFFECTS TRAZADONE: CONFUSION - SIDE EFFECTS LYRICA: DYSPNEA - ALLERGY BYETTA 10 MCG PEN: WEIRD FEELING - SIDE EFFECTS GLIMEPIRIDE: UNKNOWN AMOXICILLIN: GI UPSET - SIDE EFFECTS CI PIGMENT BLUE 63: UNKNOWN DULOXETINE HCL: GI UPSET - SIDE EFFECTS EXENATIDE: UNKNOWN SURGICAL HISTORY KNEE REPLACEMENT (RIGHT) 2010 HYSTERECTOMY GALL BLADDER ARTHOSCOPY PRIOR TO RT KNEE REPLACEMENT DHARA CARPAL TUNNEL KNEE REPLACEMENT (LEFT) LEFT LUMPECTOMY 04/23/[address] RENAE 11/28/15 RCA DRUG ELUTING STENT 2007 TONGUE BX (NEGATIVE) 11/2018 FAMILY HISTORY FATHER: , CANCER, COLON, DIAGNOSED WITH OTHER MALIGNANT NEOPLASM OF UNSPECIFIED SITE MOTHER: , CVA, CARDIAC DISEASE, UNSPECIFIED HEART DISEASE, UNSPECIFIED CEREBRAL ARTERY OCCLUSION WITH CEREBRAL INFARCTION SIBLINGS: , HEART PROBLEMS--CVA, UNSPECIFIED CEREBRAL ARTERY OCCLUSION WITH CEREBRAL INFARCTION, OTHER SPECIFIED CONDITIONS INFLUENCING HEALTH STATUS 3 SISTER(S) . 2 SON(S) , 1 DAUGHTER(S) - HEALTHY. FATHER-PROSTATE [id number], ARTHRITIS\NSISTER-STROKE. SOCIAL HISTORY GENERAL: TOBACCO USE ARE YOU A:FORMER SMOKER HOW LONG HAS IT BEEN SINCE YOU LAST SMOKED?> 10 YEARS LANGUAGE LANGUAGES SPOKEN:BERMUDIAN DOMESTIC VIOLENCE DO YOU FEEL SAFE IN YOUR ENVIRONMENT?YES BMI CARE GOAL FOLLOW-UP ABOVE NORMAL BMI FOLLOW-UPDIETARY MANAGEMENT EDUCATION, GUIDANCE, AND COUNSELING RECREATIONAL DRUG USE DRUG USE?NO DENIES12/06/2018 LEARNING BARRIERS / SPECIAL NEEDS CHANGE FROM LAST VISIT?NO BARRIERS TO LEARNING?NO HEARING IMPAIRED?NO VISION IMPAIRED?YES :CORRECTIVE LENSES COGNITIVELY IMPAIRED?NO READINESS TO LEARN?YES LEARNING PREFERENCES?NO LEARNING CAPABILITIES PRESENT?YES EMOTIONAL BARRIERS?NO SPECIAL DEVICES?YES :CANE RADIO MECHANIC APPRENTICE NEEDED?NO LUNG CANCER SCREENING SMOKING STATUS:FORMER SMOKER IS THE PATIENT BETWEEN THE AGE OF 57 AND 79?YES HAVE YOU QUIT SMOKING WITHIN THE PAST 15 YEARS?YES HAS THE PATIENT EVER BEEN DIAGNOSED WITH LUNG CANCER?NO PAIN CLINIC PFS, CLERGY, PUBLIC HEALTH REFERRALS PFS REFERRAL NEEDED?NO CLERGY REFERRAL NEEDED?NO PUBLIC HEALTH REFERRAL NEEDED?NO WAS THE PROVIDER NOTIFIED OF ANY PERTINENT INFO? N/A HAS THE PATIENT BEEN EDUCATED REGARDING HIS/HER PLAN OF CARE?YES HAS THE PATIENT BEEN EDUCATED REGARDING PAIN, THE RISK FOR PAIN, THE IMPORTANCE OF EFFECTIVE PAIN MANAGEMENT, AND THE PAIN ASSESSMENT PROCESS?YES LATEX QUESTIONNAIRE LATEX ALLERGY : HAVE YOU EVER DEVELOPED ANY TYPE OF REACTION AFTER HANDLING LATEX PRODUCTS SUCH RUBBER GLOVES, CONDOMS, DIAPHRAGMS, BALLOONS, SOCKS, OR UNDERWEAR?NO LATEX ALLERGY : HAVE YOU EVER DEVELOPED ANY TYPE OF REACTION DURING OR AFTER DENTAL APPOINTMENT, VAGINAL/RECTAL EXAMINATION, SURGICAL PROCEDURE, OR ANY OTHER EXPOSURE?NO LATEX RISK : HAVE YOU EVER HAD ANY DIFFICULTY BREATHING OR HIVES AFTER EATING OR HANDLING ANY FRUITS, OR VEGETABLES; SUCH KIWI, BANANAS, STONE FRUITS, OR CHESTNUTSNO LATEX RISK : DO YOU HAVE A PREVIOUS PERSONAL HISTORY OF MORE THAN NINE SURGERIES, SPINA BIFIDA, OR REPEATED CATHERIZATIONS? YES - PLEASE INDICATE : > 9 SURGERIES LATEX RISK : ARE YOU FREQUENTLY EXPOSED TO LATEX PRODUCTS IN YOUR OCCUPATION?NO DATE ASKED : 02/22/2019 CAFFEINE CAFFEINE USE?YES HOW OFTEN AND HOW MUCH? 1-2 DAILY ADVANCE DIRECTIVE ADVANCE DIRECTIVE DISCUSSED WITH PATIENT:YES HCP IS MICHELE [phone] [employer] [id number] HINDU ALCOHOL SCREENING DID YOU HAVE A DRINK CONTAINING ALCOHOL IN THE PAST YEAR?NO POINTS0 INTERPRETATIONNEGATIVE SEXUAL HX HAD SEX IN THE LAST 12 MONTHS (VAGINAL, ORAL, OR ANAL)?NO HAVE YOU EVER HAD AN STD?NO 12/24/17 REVIEWED WITH PT. AD01/25/18 REVIEWED WITH PT HERNESTO03/30/18 0901 REVIEWED WITH PT LAS06/20/18 1444 REVIEWED WITH PATIENT BVREVIEWED WITH PT 11/15/18 1437 BV02/22/19 1333 REVIEWED WITH PT. AD. HOSPITALIZATION/MAJOR DIAGNOSTIC PROCEDURE CHF/ ANEMIA 06/04/2016 SURGERY PNEUMONIA ([facility]) SEPTEMBER 2016 REVIEW OF SYSTEMS REVIEWED BY: PROVIDER: LAURA SOLO . CONSTITUTIONAL: ANY CHANGE IN YOUR MEDICAL CONDITION? NO . CHILLS NO . FEVER NO . INFECTION: DO YOU HAVE NEW INFECTIONS? NO . DO YOU HAVE HISTORY OF MRSA? NO . MUSCULOSKELETAL: ANY NEW PATTERNS OF PAIN OR NUMBNESS? YES,PAIN HAS STEADILY INCREASED OVER THE PAST MONTH OR SO . GASTROENTEROLOGY: ANY NEW CHANGE IN BOWEL CONTROL? NO . GENITOURINARY: ANY NEW CHANGE IN BLADDER CONTROL? NO . IS THERE A CHANCE YOU COULD BE ? NO . HEMATOLOGY/LYMPH: DO YOU TAKE ANY BLOOD THINNERS? (FOR EXAMPLE- COUMADIN, PLAVIX, AGGRENOX, PLATEL, PRADAXA, OR XARELTO) YES, PLAVIX . WHEN WAS YOUR LAST DOSE? DATE: TIME:02/22/19 0900 . NEUROLOGY: HAVE YOU FALLEN IN THE PAST 12 MONTHS? NO . ANY NEW EXTREMITY NUMBNESS OR WEAKNESS? NO . CARDIOLOGY: DO YOU HAVE A PACEMAKER OR DEFIBRILLATOR? NO . RESPIRATORY: HAVE YOU BEEN SICK IN THE PAST WEEK? NO . FEVER NO . FLU LIKE SYMPTOMS? NO . COUGH NO . INTEGUMENTARY: DO YOU HAVE ANY RASHES OR OPEN SORES? NO . ALLERGIC/IMMUNO: ARE YOU ALLERGIC TO IV DYE? NO . ANY NEW ALLERGIES? NO . PSYCHIATRIC: DO YOU HAVE THOUGHTS OF HURTING YOURSELF OR SOMEONE ELSE? NO . ARE YOU ABUSED, NEGLECTED, OR IN AN UNSAFE ENVIRONMENT? NO . ENDOCRINOLOGY: ARE YOU DIABETIC? YES, FSBS 84 THIS A.M. AT HOME . OTHER: DO YOU NEED ANY PRESCRIPTIONS? YES . IF YES, PLEASE LIST: ROPINIROLE . ANY NEW PROBLEMS WITH YOUR MEDICATIONS? NO . WHEN DID YOU LAST EAT? ____ . WHEN DID YOU LAST DRINK? ____ . WHAT DID YOU LAST DRINK? ____ . NAME OF PERSON DRIVING YOU HOME? ____ . DO YOU HAVE ANY OTHER QUESTIONS OR CONCERNS NO PLANS ON GETTING FLU SHOT TODAY . VITAL SIGNS WT 207 LBS, HT 64.5 IN, BMI 34.98 INDEX, BP 163/80 MM HG, HR 55 /MIN, RR 18 /MIN, TEMP 97.4 F, OXYGEN SAT % 95, SAFE IN ENV? (Y/N) Y, REVIEWED BY: CHADWICK 1323. EXAMINATION GENERAL EXAMINATION: GENERALNO ACUTE DISTRESS, WELL NOURISHED AND HYDRATED. PSYCHAPPROPRIATE MOOD AND AFFECT . LUNGS:CLEAR TO AUSCULTATION BILATERALLY, NO WHEEZES, RHONCHI, RALES. HEART:NO MURMURS, REGULAR RATE AND RHYTHM. ASSESSMENTS INTERVERTEBRAL DISC DISORDER WITH RADICULOPATHY OF LUMBAR REGION - M51.16 (PRIMARY) TREATMENT INTERVERTEBRAL DISC DISORDER WITH RADICULOPATHY OF LUMBAR REGION START TIZANIDINE HCL TABLET, 4 MG, 1 TABLET NEEDED, ORALLY, THREE TIMES A DAY NEEDED FOR MUSCLE SPASM, 30 DAYS, 90 REFILL REQUIP, 0.25 MG, 1-2 TABLETS, 1-3 HOURS BEFORE BED, AT BEDTIME, 30 DAYS, 60 CLINICAL NOTES: 78-YEAR-OLD FEMALE IN FOR CHRONIC PAIN FOLLOW-UP. GIVEN PRESENTING SYMPTOMS AND RESULTS PHYSICAL EXAMINATION RECOMMENDED STARTING TIZANIDINE 4 MG 3 TIMES A DAY NEEDED FOR MUSCLE SPASM. FURTHER RECOMMENDED FOLLOW-UP IN 1 MONTH TO DETERMINE EFFICACY OF TREATMENT. POTENTIAL SEDATION FROM MUSCLE RELAXER WAS DISCUSSED WITH PATIENT. PATIENT HAS EXPRESSED UNDERSTANDING OF AND WAS IN AGREEMENT WITH TREATMENT PLAN. GIVEN TIME TO ASK QUESTIONS AND EXPRESS CONCERNS. PREVENTIVE MEDICINE PAIN CLINIC TEACHING: MEDICATIONS PRINTED INFORMATION ON TIZANIDINE GIVEN TO AND REVIEWED WITH PT. AND SHE VERBALIZED UNDERSTANDING. PROCEDURE CODES FA211 ESTABILISHED PATIENT [facility] CHARGE DISPOSITION & COMMUNICATION FOLLOW UP 4 WEEKS (REASON: MEDICATION ) ELECTRONICALLY SIGNED BY LUMA BURGOS ON 02/23/2019 AT 10:31 AM EDT DISCLAIMER : THIS IS A VISIT SUMMARY EXTRACTED FROM THE [employer] CHART. IT IS NOT A COPY OF THE [employer] PROGRESS NOTE. MTDD
== END ==
LOC: M PAIN 13:15
PROVIDERS: ATTEND Family Medicine
DX: M51.16 Intervertebral disc disorders with radiculopathy, lumbar region (principal); G89.29 Other chronic pain; E11.9 Type 2 diabetes mellitus without complications; Z86.59 Personal history of other mental and behavioral disorders; I10 Essential (primary) hypertension; E78.5 Hyperlipidemia, unspecified; K21.9 Gastro-esophageal reflux disease without esophagitis; G47.00 Insomnia, unspecified; Z96.653 Presence of artificial knee joint, bilateral; Z87.891 Personal history of nicotine dependence; Z88.1 Allergy status to other antibiotic agents; Z88.5 Allergy status to narcotic agent; Z88.8 Allergy status to other drugs, medicaments and biological substances; Z91.02 Food additives allergy status; Z79.01 Long term (current) use of anticoagulants; Z79.4 Long term (current) use of insulin; Z79.899 Other long term (current) drug therapy

== ENCOUNTER → 2019-03-22 | Outpatient (CLI) | payer MEDICARE ==
[~2019-03-22] MED LIST changes: -OMEP40CA2 PO; +OMEP40CA97 PO
--- NOTE | 2019-03-24 01:21 | ECWPNPC ---
PATIENT NAME: WEN SCHWAB : 1940 GENDER: FEMALE VISIT DATE: 03/22/2019 DISCHARGE DATE: 03/22/19 1345 VISIT LOCKED DATE TIME: PHYSICIAN: AISHWARYA CARRERA PHYSICIAN PAGER NO: [phone] RESOURCE: AISHWARYA CARRERA REASON FOR APPOINTMENT 1. MEDICATION HISTORY OF PRESENT ILLNESS HISTORY OF PRESENT ILLNESS: PAIN THE PATIENT DESCRIBES THE PAIN... 39-YEAR-OLD FEMALE IN FOR CHRONIC PAIN FOLLOW-UP. SHE RATES HER PAIN CURRENTLY AT A 9+ OUT OF 10 AND DESCRIBES IT ACHING, BURNING, SORE, TENDER, SHARP, AND SHOOTING. SHE WAS STARTED ON TIZANIDINE AT LAST CLINIC VISIT UNFORTUNATELY PATIENT STATES SHE HAD TO STOP THIS MEDICATION IT WAS MAKING HER DIZZY. FALL RISK SCREENING: SCREENING :NO FALLS REPORTED IN THE LAST YEAR CURRENT MEDICATIONS TAKING NITROGLYCERIN 0.4 MG TABLET SUBLINGUAL DIRECTED SUBLINGUAL TAKING TYLENOL 325 MG TABLET 1 TABLET NEEDED ORALLY EVERY 4 HRS TAKING VENTOLIN HFA 108 (90 BASE) MCG/ACT AEROSOL SOLUTION 2 PUFFS NEEDED INHALATION EVERY 6 HRS TAKING TRIAMCINOLONE ACETONIDE (PF) CREAM TO ELBOWS NEEDED TAKING CLARITIN 10 MG TABLET 1 TABLET ORALLY ONCE A DAY TAKING MIRALAX - POWDER DIRECTED ORALLY NEEDED TAKING TORSEMIDE 100 MG TABLET 1/2 TABLET ORALLY TWICE A DAY TAKING SPIRONOLACTONE 25 MG TABLET 1 TABLET ORALLY ONCE A DAY TAKING PLAVIX 75 MG TABLET 1 TABLET ORALLY ONCE A DAY TAKING NOVOLOG FLEXPEN 100 UNIT/ML SOLUTION PEN-INJECTOR DIRECTED SUBCUTANEOUS TAKING LANTUS SOLOSTAR 100 UNIT/ML SOLUTION PEN-INJECTOR 32 UNITS SUBCUTANEOUS DAILY TAKING WELLBUTRIN XL 300 MG TABLET EXTENDED RELEASE 24 HOUR 1 TABLET IN THE MORNING ORALLY ONCE A DAY TAKING WELLBUTRIN XL 150 MG TABLET EXTENDED RELEASE 24 HOUR 1 TABLET IN THE MORNING ORALLY ONCE A DAY TAKING SERTRALINE HCL 50 MG TABLET 1 TABLET ORALLY ONCE A DAY TAKING NYSTATIN 037993 UNIT/GM POWDER 1 APPLICATION TO AFFECTED AREA EXTERNALLY TWICE A DAY TAKING AMLODIPINE BESYLATE 5 MG TABLET 1 TABLET ORALLY ONCE A DAY TAKING AMLODIPINE BESYLATE 10 MG TABLET 1 TABLET ORALLY ONCE A DAY TAKING CARVEDILOL 25 MG TABLET 1 TABLET ORALLY TWICE A DAY TAKING OMEPRAZOLE 40 MG CAPSULE DELAYED RELEASE 1 CAPSULE ORALLY ONCE A DAY TAKING REQUIP 0.25 MG 1-2 TABLETS 1-3 HOURS BEFORE BED AT BEDTIME TAKING LORAZEPAM 1 MG TABLET 1 TABLET AT BEDTIME NEEDED ORALLY ONCE A DAY NOT-TAKING TIZANIDINE HCL 4 MG TABLET 1 TABLET NEEDED ORALLY THREE TIMES A DAY NEEDED FOR MUSCLE SPASM, NOTES: STOPPED TAKING NOT-TAKING NYSTATIN [id number] UNIT/ML SUSPENSION 5 ML ORALLY SWISH AND SWALLOW 4 TIMES A DAY MEDICATION LIST REVIEWED AND RECONCILED WITH THE PATIENT PAST MEDICAL HISTORY LAST COLONONSCPY 2000 LAST MAMMOGRAM-2013 PAP N/A SECONDARY TO AGE OVER 69, NOT HIGH RISK DM DEPRESSION NARCOTIC WITHDRAWAL (OVERDOSE) HYPERTENSION ANEMIA HYPERLIPIDEMIA CAD MYALGIA DUE TO ZOCOR BREAST CANCER, LEFT DUCTAL CARCINOMA IN SITU., S/P RADIATION THERAPY. 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, EF 35%, OSTEOARTHRITIS GERD CHRONIC COUGH INSOMNIA LOW BACK PAIN ALLERGIES AMARYL: SHAKINESS - ALLERGY STRAWBERRY: MOUTH BLISTERS - ALLERGY ZOCOR 20: MYALGIAS &ARTHRALGIAS - ALLERGY CRESTOR : MYALGIA & ARTHRALGIA - ALLERGY CODEINE: BURNING UPSET STOMAC - SIDE EFFECTS FENTANYL: UPSET STOMACH - SIDE EFFECTS GABAPENTIN: BALANCE ISSUES, HALUCINATION - SIDE EFFECTS TRAZADONE: CONFUSION - SIDE EFFECTS LYRICA: DYSPNEA - ALLERGY BYETTA 10 MCG PEN: WEIRD FEELING - SIDE EFFECTS GLIMEPIRIDE: UNKNOWN AMOXICILLIN: GI UPSET - SIDE EFFECTS CI PIGMENT BLUE 63: UNKNOWN DULOXETINE HCL: GI UPSET - SIDE EFFECTS EXENATIDE: UNKNOWN CELEBREX: NAUSEA/VOMITING - SIDE EFFECTS SURGICAL HISTORY KNEE REPLACEMENT (RIGHT) 2010 HYSTERECTOMY GALL BLADDER ARTHOSCOPY PRIOR TO RT KNEE REPLACEMENT DHARA CARPAL TUNNEL KNEE REPLACEMENT (LEFT) LEFT LUMPECTOMY 04/23/[address] RENAE 11/28/15 RCA DRUG ELUTING STENT 2007 TONGUE BX (NEGATIVE) 11/2018 FAMILY HISTORY FATHER: , CANCER, COLON, DIAGNOSED WITH OTHER MALIGNANT NEOPLASM OF UNSPECIFIED SITE MOTHER: , CVA, CARDIAC DISEASE, UNSPECIFIED HEART DISEASE, UNSPECIFIED CEREBRAL ARTERY OCCLUSION WITH CEREBRAL INFARCTION SIBLINGS: , HEART PROBLEMS--CVA, UNSPECIFIED CEREBRAL ARTERY OCCLUSION WITH CEREBRAL INFARCTION, OTHER SPECIFIED CONDITIONS INFLUENCING HEALTH STATUS 3 SISTER(S) . 2 SON(S) , 1 DAUGHTER(S) - HEALTHY. FATHER-PROSTATE [id number], ARTHRITIS\NSISTER-STROKE. SOCIAL HISTORY GENERAL: TOBACCO USE ARE YOU A:FORMER SMOKER HOW LONG HAS IT BEEN SINCE YOU LAST SMOKED?> 10 YEARS LANGUAGE LANGUAGES SPOKEN:TURKISH DOMESTIC VIOLENCE DO YOU FEEL SAFE IN YOUR ENVIRONMENT?YES NEW PATIENT PAIN DIARY PATIENT DESCRIBES PAIN :BURNING, HAVE IT ALL THE TIME, SHARP, STABBING, TENDER, SORE, SHOOTING FROM 0-10, WHAT LEVEL IS YOUR PAIN TODAY?9 BMI CARE GOAL FOLLOW-UP ABOVE NORMAL BMI FOLLOW-UPDIETARY MANAGEMENT EDUCATION, GUIDANCE, AND COUNSELING RECREATIONAL DRUG USE DRUG USE?NO DENIES12/06/2018 LEARNING BARRIERS / SPECIAL NEEDS CHANGE FROM LAST VISIT?NO BARRIERS TO LEARNING?NO HEARING IMPAIRED?NO VISION IMPAIRED?YES COGNITIVELY IMPAIRED?NO :CORRECTIVE LENSES READINESS TO LEARN?YES LEARNING PREFERENCES?NO LEARNING CAPABILITIES PRESENT?YES EMOTIONAL BARRIERS?NO SPECIAL DEVICES?YES :CANE MICA PATCHER NEEDED?NO LUNG CANCER SCREENING SMOKING STATUS:FORMER SMOKER IS THE PATIENT BETWEEN THE AGE OF 57 AND 79?YES HAVE YOU QUIT SMOKING WITHIN THE PAST 15 YEARS?YES HAS THE PATIENT EVER BEEN DIAGNOSED WITH LUNG CANCER?NO PAIN CLINIC PFS, CLERGY, PUBLIC HEALTH REFERRALS PFS REFERRAL NEEDED?NO CLERGY REFERRAL NEEDED?NO PUBLIC HEALTH REFERRAL NEEDED?NO WAS THE PROVIDER NOTIFIED OF ANY PERTINENT INFO? N/A HAS THE PATIENT BEEN EDUCATED REGARDING HIS/HER PLAN OF CARE?YES HAS THE PATIENT BEEN EDUCATED REGARDING PAIN, THE RISK FOR PAIN, THE IMPORTANCE OF EFFECTIVE PAIN MANAGEMENT, AND THE PAIN ASSESSMENT PROCESS?YES LATEX QUESTIONNAIRE LATEX ALLERGY : HAVE YOU EVER DEVELOPED ANY TYPE OF REACTION AFTER HANDLING LATEX PRODUCTS SUCH RUBBER GLOVES, CONDOMS, DIAPHRAGMS, BALLOONS, SOCKS, OR UNDERWEAR?NO LATEX ALLERGY : HAVE YOU EVER DEVELOPED ANY TYPE OF REACTION DURING OR AFTER DENTAL APPOINTMENT, VAGINAL/RECTAL EXAMINATION, SURGICAL PROCEDURE, OR ANY OTHER EXPOSURE?NO LATEX RISK : HAVE YOU EVER HAD ANY DIFFICULTY BREATHING OR HIVES AFTER EATING OR HANDLING ANY FRUITS, OR VEGETABLES; SUCH KIWI, BANANAS, STONE FRUITS, OR CHESTNUTSNO LATEX RISK : DO YOU HAVE A PREVIOUS PERSONAL HISTORY OF MORE THAN NINE SURGERIES, SPINA BIFIDA, OR REPEATED CATHERIZATIONS? YES - PLEASE INDICATE : > 9 SURGERIES LATEX RISK : ARE YOU FREQUENTLY EXPOSED TO LATEX PRODUCTS IN YOUR OCCUPATION?NO DATE ASKED : 02/22/2019 CAFFEINE CAFFEINE USE?YES HOW OFTEN AND HOW MUCH? 1-2 DAILY ADVANCE DIRECTIVE ADVANCE DIRECTIVE DISCUSSED WITH PATIENT:YES HCP IS MICHELE [phone] [id number] DENOMINATIONAL ALCOHOL SCREENING DID YOU HAVE A DRINK CONTAINING ALCOHOL IN THE PAST YEAR?NO POINTS0 INTERPRETATIONNEGATIVE SEXUAL HX HAD SEX IN THE LAST 12 MONTHS (VAGINAL, ORAL, OR ANAL)?NO HAVE YOU EVER HAD AN STD?NO 12/24/17 REVIEWED WITH PT. AD01/25/18 REVIEWED WITH PT LAS03/30/18 0901 REVIEWED WITH PT LAS06/20/18 1444 REVIEWED WITH PATIENT BVREVIEWED WITH PT 11/15/18 1437 BV02/22/19 1333 REVIEWED WITH PT. ADREVIEWED WITH PATIENT 03/22/19 1319 JS. HOSPITALIZATION/MAJOR DIAGNOSTIC PROCEDURE CHF/ ANEMIA 06/04/2016 SURGERY PNEUMONIA ([facility]) SEPTEMBER 2016 REVIEW OF SYSTEMS REVIEWED BY: PROVIDER: LAURA SOLO . CONSTITUTIONAL: ANY CHANGE IN YOUR MEDICAL CONDITION? NO . CHILLS NO . FEVER NO . INFECTION: DO YOU HAVE NEW INFECTIONS? NO . DO YOU HAVE HISTORY OF MRSA? NO . MUSCULOSKELETAL: ANY NEW PATTERNS OF PAIN OR NUMBNESS? NO . GASTROENTEROLOGY: ANY NEW CHANGE IN BOWEL CONTROL? NO . GENITOURINARY: ANY NEW CHANGE IN BLADDER CONTROL? YES, URINARY URGENCY . IS THERE A CHANCE YOU COULD BE ? NO . HEMATOLOGY/LYMPH: DO YOU TAKE ANY BLOOD THINNERS? (FOR EXAMPLE- COUMADIN, PLAVIX, AGGRENOX, PLATEL, PRADAXA, OR XARELTO) YES, PLAVIX . WHEN WAS YOUR LAST DOSE? DATE: 03/22/19TIME: 0800 . NEUROLOGY: HAVE YOU FALLEN IN THE PAST 12 MONTHS? YES, STATES FALL INTO A LAUDRY BASKET AFTER LOSING HER BALANCE WHEN TAKING THE TIZANIDINE. STATES NO ED VISIT, NO IMAGING . ANY NEW EXTREMITY NUMBNESS OR WEAKNESS? NO . CARDIOLOGY: DO YOU HAVE A PACEMAKER OR DEFIBRILLATOR? NO . RESPIRATORY: HAVE YOU BEEN SICK IN THE PAST WEEK? NO . FEVER NO . FLU LIKE SYMPTOMS? NO . COUGH NO . INTEGUMENTARY: DO YOU HAVE ANY RASHES OR OPEN SORES? NO . ALLERGIC/IMMUNO: ARE YOU ALLERGIC TO IV DYE? NO . ANY NEW ALLERGIES? NO . PSYCHIATRIC: DO YOU HAVE THOUGHTS OF HURTING YOURSELF OR SOMEONE ELSE? NO . ARE YOU ABUSED, NEGLECTED, OR IN AN UNSAFE ENVIRONMENT? NO . ENDOCRINOLOGY: ARE YOU DIABETIC? YES . OTHER: DO YOU NEED ANY PRESCRIPTIONS? YES . IF YES, PLEASE LIST: ____REQUIP . ANY NEW PROBLEMS WITH YOUR MEDICATIONS? YES, THE TIZANDINE MADE HER MORE UNBALANCED THAN SHE ALREADY WAS. SHE STOPPED TAKING THE TIZANIDINE . WHEN DID YOU LAST EAT? ____ . WHEN DID YOU LAST DRINK? ____ . WHAT DID YOU LAST DRINK? ____ . NAME OF PERSON DRIVING YOU HOME? ____ . DO YOU HAVE ANY OTHER QUESTIONS OR CONCERNS FLU VACCINE APPROX 03/04/19 . VITAL SIGNS WT 206.6 LBS, HT 64.5 IN, BMI 34.91 INDEX, BP 160/72 MANUAL, HR 56 /MIN, RR 18 /MIN, TEMP 97.6 F, OXYGEN SAT % 97%, SAFE IN ENV? (Y/N) YES, REVIEWED BY: TOM. EXAMINATION GENERAL EXAMINATION: GENERALNO ACUTE DISTRESS, WELL NOURISHED AND HYDRATED. PSYCHAPPROPRIATE MOOD AND AFFECT . LUNGS:CLEAR TO AUSCULTATION BILATERALLY, NO WHEEZES, RHONCHI, RALES. HEART:NO MURMURS, REGULAR RATE AND RHYTHM. ASSESSMENTS SPONDYLOSIS OF LUMBOSACRAL REGION WITHOUT MYELOPATHY OR RADICULOPATHY - M47.817 (PRIMARY) TREATMENT SPONDYLOSIS OF LUMBOSACRAL REGION WITHOUT MYELOPATHY OR RADICULOPATHY STOP TIZANIDINE HCL TABLET, 4 MG, 1 TABLET NEEDED, ORALLY, THREE TIMES A DAY NEEDED FOR MUSCLE SPASM, NOTES: STOPPED TAKING START BACLOFEN TABLET, 5 MG, DIRECTED, ORALLY, TWICE DAILY NEEDED, 30 DAYS, 60 REFILL REQUIP, 0.25 MG, 1-2 TABLETS, 1-3 HOURS BEFORE BED, AT BEDTIME, 30 DAYS, 60 CLINICAL NOTES: 79-YEAR-OLD FEMALE IN FOR CHRONIC PAIN FOLLOW-UP. GIVEN PRESENTING SYMPTOMS AND RESULTS OF PHYSICAL EXAMINATION RECOMMENDED STARTING BACLOFEN WITH FOLLOW-UP IN ONE MONTH TO DETERMINE EFFICACY OF TREATMENT. PATIENT HAS EXPRESSED UNDERSTANDING OF AND WAS IN AGREEMENT WITH TREATMENT PLAN. GIVEN TIME TO ASK QUESTIONS AND EXPRESS CONCERNS. PROCEDURE CODES FA211 ESTABILISHED PATIENT [facility] CHARGE DISPOSITION & COMMUNICATION FOLLOW UP 4 WEEKS (REASON: MEDICATION CHANGE) ELECTRONICALLY SIGNED BY LUMA BURGOS ON 03/23/2019 AT 08:57 AM EDT DISCLAIMER : THIS IS A VISIT SUMMARY EXTRACTED FROM THE [employer] CHART. IT IS NOT A COPY OF THE [employer] PROGRESS NOTE. GRICEL
== END ==
LOC: M PAIN 13:15
PROVIDERS: ATTEND Family Medicine
DX: M47.817 Spondylosis without myelopathy or radiculopathy, lumbosacral region (principal); E11.9 Type 2 diabetes mellitus without complications; F32.9 Major depressive disorder, single episode, unspecified; I11.0 Hypertensive heart disease with heart failure; D64.9 Anemia, unspecified; E78.5 Hyperlipidemia, unspecified; I25.10 Atherosclerotic heart disease of native coronary artery without angina pectoris; Z85.3 Personal history of malignant neoplasm of breast; I50.9 Heart failure, unspecified; Z95.5 Presence of coronary angioplasty implant and graft; K21.9 Gastro-esophageal reflux disease without esophagitis; G47.00 Insomnia, unspecified; I51.81 Takotsubo syndrome; Z87.891 Personal history of nicotine dependence; Z96.653 Presence of artificial knee joint, bilateral; Z92.3 Personal history of irradiation; Z79.4 Long term (current) use of insulin; Z79.899 Other long term (current) drug therapy; Z79.02 Long term (current) use of antithrombotics/antiplatelets; Z88.0 Allergy status to penicillin; Z88.8 Allergy status to other drugs, medicaments and biological substances; Z88.5 Allergy status to narcotic agent; Z91.048 Other nonmedicinal substance allergy status; Z91.018 Allergy to other foods

== ENCOUNTER → 2019-05-05 | Outpatient (CLI) | payer MEDICARE ==
--- NOTE | 2019-05-09 00:47 | ECWPNPC ---
PATIENT NAME: WEN SCHWAB : 1940 GENDER: FEMALE VISIT DATE: 05/05/2019 DISCHARGE DATE: 05/05/19 1459 VISIT LOCKED DATE TIME: PHYSICIAN: AISHWARYA CARRERA PHYSICIAN PAGER NO: [phone] RESOURCE: AISHWARYA CARRERA REASON FOR APPOINTMENT 1. MEDICATION/BACK HISTORY OF PRESENT ILLNESS HISTORY OF PRESENT ILLNESS: PAIN THE PATIENT DESCRIBES THE PAIN... 79-YEAR-OLD FEMALE IN FOR CHRONIC PAIN FOLLOW-UP. PATIENT RATES HER PAIN CURRENTLY AT A 10 OUT OF 10 AND DESCRIBES IT ACHING, SHARP, BURNING, STABBING, SORE, SHOOTING, AND TENDER. SHE ADMITS TO TAKING THE BACLOFEN ONLY AT NIGHT IT MAKES HER SLEEPY. FALL RISK SCREENING: SCREENING :NO FALLS REPORTED IN THE LAST YEAR CURRENT MEDICATIONS TAKING NITROGLYCERIN 0.4 MG TABLET SUBLINGUAL DIRECTED SUBLINGUAL TAKING TYLENOL 325 MG TABLET 1 TABLET NEEDED ORALLY EVERY 4 HRS TAKING VENTOLIN HFA 108 (90 BASE) MCG/ACT AEROSOL SOLUTION 2 PUFFS NEEDED INHALATION EVERY 6 HRS TAKING TRIAMCINOLONE ACETONIDE (PF) CREAM TO ELBOWS NEEDED TAKING CLARITIN 10 MG TABLET 1 TABLET ORALLY ONCE A DAY TAKING MIRALAX - POWDER DIRECTED ORALLY NEEDED TAKING TORSEMIDE 100 MG TABLET 1/2 TABLET ORALLY TWICE A DAY TAKING NOVOLOG FLEXPEN 100 UNIT/ML SOLUTION PEN-INJECTOR DIRECTED SUBCUTANEOUS TAKING LANTUS SOLOSTAR 100 UNIT/ML SOLUTION PEN-INJECTOR 32 UNITS SUBCUTANEOUS DAILY TAKING WELLBUTRIN XL 300 MG TABLET EXTENDED RELEASE 24 HOUR 1 TABLET IN THE MORNING ORALLY ONCE A DAY TAKING WELLBUTRIN XL 150 MG TABLET EXTENDED RELEASE 24 HOUR 1 TABLET IN THE MORNING ORALLY ONCE A DAY TAKING SERTRALINE HCL 50 MG TABLET 1 TABLET ORALLY ONCE A DAY TAKING NYSTATIN [id number] UNIT/GM POWDER 1 APPLICATION TO AFFECTED AREA EXTERNALLY TWICE A DAY TAKING AMLODIPINE BESYLATE 5 MG TABLET 1 TABLET ORALLY ONCE A DAY TAKING AMLODIPINE BESYLATE 10 MG TABLET 1 TABLET ORALLY ONCE A DAY TAKING CARVEDILOL 25 MG TABLET 1 TABLET ORALLY TWICE A DAY TAKING OMEPRAZOLE 40 MG CAPSULE DELAYED RELEASE 1 CAPSULE ORALLY ONCE A DAY TAKING LORAZEPAM 1 MG TABLET 1 TABLET AT BEDTIME NEEDED ORALLY ONCE A DAY, NOTES: [id number] TAKING SPIRONOLACTONE 25 MG TABLET 1 TABLET ORALLY ONCE A DAY TAKING BACLOFEN 5 MG TABLET DIRECTED ORALLY TWICE DAILY NEEDED TAKING REQUIP 0.25 MG 1-2 TABLETS 1-3 HOURS BEFORE BED AT BEDTIME TAKING PLAVIX 75 MG TABLET 1 TABLET ORALLY ONCE A DAY DISCONTINUED NYSTATIN 686952 UNIT/ML SUSPENSION 5 ML ORALLY SWISH AND SWALLOW 4 TIMES A DAY MEDICATION LIST REVIEWED AND RECONCILED WITH THE PATIENT PAST MEDICAL HISTORY LAST COLONONSCPY 2000 LAST MAMMOGRAM-2013 PAP N/A SECONDARY TO AGE OVER 69, NOT HIGH RISK DM DEPRESSION NARCOTIC WITHDRAWAL (OVERDOSE) HYPERTENSION ANEMIA HYPERLIPIDEMIA CAD MYALGIA DUE TO ZOCOR BREAST CANCER, LEFT DUCTAL CARCINOMA IN SITU., S/P RADIATION THERAPY. 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, EF 35%, OSTEOARTHRITIS GERD CHRONIC COUGH INSOMNIA LOW BACK PAIN ALLERGIES AMARYL: SHAKINESS - ALLERGY STRAWBERRY: MOUTH BLISTERS - ALLERGY ZOCOR 20: MYALGIAS &ARTHRALGIAS - ALLERGY CRESTOR : MYALGIA & ARTHRALGIA - ALLERGY CODEINE: BURNING UPSET STOMAC - SIDE EFFECTS FENTANYL: UPSET STOMACH - SIDE EFFECTS GABAPENTIN: BALANCE ISSUES, HALUCINATION - SIDE EFFECTS TRAZADONE: CONFUSION - SIDE EFFECTS LYRICA: DYSPNEA - ALLERGY BYETTA 10 MCG PEN: WEIRD FEELING - SIDE EFFECTS GLIMEPIRIDE: UNKNOWN AMOXICILLIN: GI UPSET - SIDE EFFECTS CI PIGMENT BLUE 63: UNKNOWN DULOXETINE HCL: GI UPSET - SIDE EFFECTS EXENATIDE: UNKNOWN CELEBREX: NAUSEA/VOMITING - SIDE EFFECTS SURGICAL HISTORY KNEE REPLACEMENT (RIGHT) 2010 HYSTERECTOMY GALL BLADDER ARTHOSCOPY PRIOR TO RT KNEE REPLACEMENT DHARA CARPAL TUNNEL KNEE REPLACEMENT (LEFT) LEFT LUMPECTOMY 04/23/[address] RENAE 11/28/15 RCA DRUG ELUTING STENT 2007 TONGUE BX (NEGATIVE) 11/2018 FAMILY HISTORY FATHER: , CANCER, COLON, DIAGNOSED WITH OTHER MALIGNANT NEOPLASM OF UNSPECIFIED SITE MOTHER: , CVA, CARDIAC DISEASE, UNSPECIFIED HEART DISEASE, UNSPECIFIED CEREBRAL ARTERY OCCLUSION WITH CEREBRAL INFARCTION SIBLINGS: , HEART PROBLEMS--CVA, UNSPECIFIED CEREBRAL ARTERY OCCLUSION WITH CEREBRAL INFARCTION, OTHER SPECIFIED CONDITIONS INFLUENCING HEALTH STATUS 3 SISTER(S) . 2 SON(S) , 1 DAUGHTER(S) - HEALTHY. FATHER-PROSTATE [id number], ARTHRITIS\NSISTER-STROKE. SOCIAL HISTORY GENERAL: TOBACCO USE ARE YOU A:FORMER SMOKER HOW LONG HAS IT BEEN SINCE YOU LAST SMOKED?> 10 YEARS LANGUAGE LANGUAGES SPOKEN:SLOVENIAN DOMESTIC VIOLENCE DO YOU FEEL SAFE IN YOUR ENVIRONMENT?YES NEW PATIENT PAIN DIARY PATIENT DESCRIBES PAIN :BURNING, HAVE IT ALL THE TIME, SHARP, STABBING, TENDER, SORE, SHOOTING FROM 0-10, WHAT LEVEL IS YOUR PAIN TODAY?9 BMI CARE GOAL FOLLOW-UP ABOVE NORMAL BMI FOLLOW-UPDIETARY MANAGEMENT EDUCATION, GUIDANCE, AND COUNSELING RECREATIONAL DRUG USE DRUG USE?NO DENIES12/06/2018 LEARNING BARRIERS / SPECIAL NEEDS CHANGE FROM LAST VISIT?NO BARRIERS TO LEARNING?NO HEARING IMPAIRED?NO VISION IMPAIRED?YES COGNITIVELY IMPAIRED?NO :CORRECTIVE LENSES READINESS TO LEARN?YES LEARNING PREFERENCES?NO LEARNING CAPABILITIES PRESENT?YES EMOTIONAL BARRIERS?NO SPECIAL DEVICES?YES :CANE PAD ASSEMBLER NEEDED?NO LUNG CANCER SCREENING SMOKING STATUS:FORMER SMOKER IS THE PATIENT BETWEEN THE AGE OF 57 AND 79?YES HAVE YOU QUIT SMOKING WITHIN THE PAST 15 YEARS?YES HAS THE PATIENT EVER BEEN DIAGNOSED WITH LUNG CANCER?NO PAIN CLINIC PFS, CLERGY, PUBLIC HEALTH REFERRALS PFS REFERRAL NEEDED?NO CLERGY REFERRAL NEEDED?NO PUBLIC HEALTH REFERRAL NEEDED?NO WAS THE PROVIDER NOTIFIED OF ANY PERTINENT INFO? N/A HAS THE PATIENT BEEN EDUCATED REGARDING HIS/HER PLAN OF CARE?YES HAS THE PATIENT BEEN EDUCATED REGARDING PAIN, THE RISK FOR PAIN, THE IMPORTANCE OF EFFECTIVE PAIN MANAGEMENT, AND THE PAIN ASSESSMENT PROCESS?YES LATEX QUESTIONNAIRE LATEX ALLERGY : HAVE YOU EVER DEVELOPED ANY TYPE OF REACTION AFTER HANDLING LATEX PRODUCTS SUCH RUBBER GLOVES, CONDOMS, DIAPHRAGMS, BALLOONS, SOCKS, OR UNDERWEAR?NO LATEX ALLERGY : HAVE YOU EVER DEVELOPED ANY TYPE OF REACTION DURING OR AFTER DENTAL APPOINTMENT, VAGINAL/RECTAL EXAMINATION, SURGICAL PROCEDURE, OR ANY OTHER EXPOSURE?NO DATE ASKED : 02/22/2019 LATEX RISK : HAVE YOU EVER HAD ANY DIFFICULTY BREATHING OR HIVES AFTER EATING OR HANDLING ANY FRUITS, OR VEGETABLES; SUCH KIWI, BANANAS, STONE FRUITS, OR CHESTNUTSNO LATEX RISK : DO YOU HAVE A PREVIOUS PERSONAL HISTORY OF MORE THAN NINE SURGERIES, SPINA BIFIDA, OR REPEATED CATHERIZATIONS? YES - PLEASE INDICATE : > 9 SURGERIES LATEX RISK : ARE YOU FREQUENTLY EXPOSED TO LATEX PRODUCTS IN YOUR OCCUPATION?NO CAFFEINE CAFFEINE USE?YES HOW OFTEN AND HOW MUCH? 1-2 DAILY ADVANCE DIRECTIVE ADVANCE DIRECTIVE DISCUSSED WITH PATIENT:YES HCP IS MICHELE [phone] [facility] [id number] YARSANI ALCOHOL SCREENING DID YOU HAVE A DRINK CONTAINING ALCOHOL IN THE PAST YEAR?NO POINTS0 INTERPRETATIONNEGATIVE SEXUAL HX HAD SEX IN THE LAST 12 MONTHS (VAGINAL, ORAL, OR ANAL)?NO HAVE YOU EVER HAD AN STD?NO 12/24/17 REVIEWED WITH PT. AD01/25/18 REVIEWED WITH PT LAS03/30/18 0901 REVIEWED WITH PT LAS06/20/18 1444 REVIEWED WITH PATIENT BVREVIEWED WITH PT 11/15/18 1437 BV02/22/19 1333 REVIEWED WITH PT. ADREVIEWED WITH PATIENT 03/22/19 1319 JS. HOSPITALIZATION/MAJOR DIAGNOSTIC PROCEDURE CHF/ ANEMIA 06/04/2016 SURGERY PNEUMONIA ([facility]) SEPTEMBER 2016 REVIEW OF SYSTEMS REVIEWED BY: PROVIDER: LAURA SOLO . CONSTITUTIONAL: ANY CHANGE IN YOUR MEDICAL CONDITION? NO . CHILLS NO . FEVER NO . INFECTION: DO YOU HAVE NEW INFECTIONS? NO . DO YOU HAVE HISTORY OF MRSA? NO . MUSCULOSKELETAL: ANY NEW PATTERNS OF PAIN OR NUMBNESS? YES, CONSTANT PAIN . GASTROENTEROLOGY: ANY NEW CHANGE IN BOWEL CONTROL? NO . GENITOURINARY: ANY NEW CHANGE IN BLADDER CONTROL? YES, STRESS INCONTINENCE AND URGENCY . IS THERE A CHANCE YOU COULD BE ? NO . HEMATOLOGY/LYMPH: DO YOU TAKE ANY BLOOD THINNERS? (FOR EXAMPLE- COUMADIN, PLAVIX, AGGRENOX, PLATEL, PRADAXA, OR XARELTO) YES, PLAVIX . WHEN WAS YOUR LAST DOSE? DATE: TIME: . NEUROLOGY: HAVE YOU FALLEN IN THE PAST 12 MONTHS? YES, PRIOR TO LAST VISIT . ANY NEW EXTREMITY NUMBNESS OR WEAKNESS? NO . CARDIOLOGY: DO YOU HAVE A PACEMAKER OR DEFIBRILLATOR? NO . RESPIRATORY: HAVE YOU BEEN SICK IN THE PAST WEEK? YES, COUGH . FEVER NO . FLU LIKE SYMPTOMS? NO . COUGH NON-PRODUCTIVE, POST NASAL GTT . INTEGUMENTARY: DO YOU HAVE ANY RASHES OR OPEN SORES? NO . ALLERGIC/IMMUNO: ARE YOU ALLERGIC TO IV DYE? NO . ANY NEW ALLERGIES? NO . PSYCHIATRIC: DO YOU HAVE THOUGHTS OF HURTING YOURSELF OR SOMEONE ELSE? NO . ARE YOU ABUSED, NEGLECTED, OR IN AN UNSAFE ENVIRONMENT? NO . ENDOCRINOLOGY: ARE YOU DIABETIC? YES . OTHER: DO YOU NEED ANY PRESCRIPTIONS? NO . IF YES, PLEASE LIST: ____ . ANY NEW PROBLEMS WITH YOUR MEDICATIONS? NO . WHEN DID YOU LAST EAT? ____ . WHEN DID YOU LAST DRINK? ____ . WHAT DID YOU LAST DRINK? ____ . NAME OF PERSON DRIVING YOU HOME? ____ . DO YOU HAVE ANY OTHER QUESTIONS OR CONCERNS PT C/O FEELING LIKE SUGAR IS DROPPING, FS DONE AT BEDSIDE, SCANNER SUPERVISOR AWARE, EM . VITAL SIGNS WT 205.6 LBS, HT 64.5 IN, BMI 34.74 INDEX, BP 183/73 MM HG, HR 58 /MIN, RR 18 /MIN, TEMP 97.5 F, OXYGEN SAT % 94%, BLOOD GLUCOSE LEVEL 65, NA INITIALS AW 1424, REVIEWED BY: EMFS AT BEDSIDE TODAY. EM. EXAMINATION GENERAL EXAMINATION: GENERALNO ACUTE DISTRESS, WELL NOURISHED AND HYDRATED. PSYCHAPPROPRIATE MOOD AND AFFECT . LUNGS:CLEAR TO AUSCULTATION BILATERALLY, NO WHEEZES, RHONCHI, RALES. HEART:NO MURMURS, REGULAR RATE AND RHYTHM. ASSESSMENTS INTERVERTEBRAL DISC DISORDER WITH RADICULOPATHY OF LUMBAR REGION - M51.16 (PRIMARY) TREATMENT INTERVERTEBRAL DISC DISORDER WITH RADICULOPATHY OF LUMBAR REGION START BELBUCA FILM, 75 MCG, 1 FILM TO THE GUM, BUCALLY, ONCE A DAY, 30 DAYS, 30 CLINICAL NOTES: 79-YEAR-OLD FEMALE IN FOR CHRONIC PAIN FOLLOW-UP. GIVEN PRESENTING SYMPTOMS AND RESULTS OF PHYSICAL EXAMINATION RECOMMENDED STARTING BELBUCA WITH FOLLOW-UP IN ONE MONTH TO DETERMINE EFFICACY TREATMENT. PATIENT EXPRESSED UNDERSTANDING OF AND WAS IN AGREEMENT WITH TREATMENT PLAN. GIVEN TIME TO ASK QUESTIONS AND EXPRESS CONCERNS., ISTOP REGISTRY REVIEWED AND DEMONSTRATES COMPLLIANCE. (REF # [id number] BRINGS IN MEDICATIONS WHICH IS APPROPRIATE FOR WHAT WAS DISPENSED. RECENT URINE TOXICOLOGY REVIEWED. NO UNAUTHORIZED MEDICATIONS. NO ILLICIT SUBSTANCES AND PRESCRIBED MEDICATIONS WERE PRESENT. OTHERS NOTES: BUPRENORPHINE BUCCAL (CHRONIC PAIN) MATERIAL WAS PRINTED. PROCEDURE CODES [id number] ESTABILISHED PATIENT [facility] CHARGE DISPOSITION & COMMUNICATION FOLLOW UP 4 WEEKS (REASON: BACK PAIN, AND MEDICATION) ELECTRONICALLY SIGNED BY LUMA BURGOS ON 05/08/2019 AT 09:19 AM EST DISCLAIMER : THIS IS A VISIT SUMMARY EXTRACTED FROM THE [employer] CHART. IT IS NOT A COPY OF THE [employer] PROGRESS NOTE. GRICEL
== END ==
LOC: M PAIN 14:30
PROVIDERS: ATTEND Family Medicine
DX: M51.16 Intervertebral disc disorders with radiculopathy, lumbar region (principal); G89.29 Other chronic pain; E11.9 Type 2 diabetes mellitus without complications; Z86.59 Personal history of other mental and behavioral disorders; I10 Essential (primary) hypertension; E78.5 Hyperlipidemia, unspecified; K21.9 Gastro-esophageal reflux disease without esophagitis; G47.00 Insomnia, unspecified; Z96.653 Presence of artificial knee joint, bilateral; Z87.891 Personal history of nicotine dependence; Z88.1 Allergy status to other antibiotic agents; Z88.5 Allergy status to narcotic agent; Z88.8 Allergy status to other drugs, medicaments and biological substances; Z91.018 Allergy to other foods; Z79.01 Long term (current) use of anticoagulants; Z79.4 Long term (current) use of insulin; Z79.899 Other long term (current) drug therapy

== ENCOUNTER → 2019-05-10 | Outpatient (REF) | payer MEDICARE ==
[2019-05-11 11:36] LABS: CALCIUM LEVEL 8.2 MG/DL (8.8-10.2); CREATININE FOR GFR 1.37 MG/DL (0.55-1.30); GLOMERULAR FILTRATION RATE 39.8 (>39); POTASSIUM SERUM 3.9 MEQ/L (3.5-5.1)
[2019-05-11 11:59] LABS: HEMOGLOBIN A1c 6.4 %
== END ==
LOC: M SFHCCLAY 14:39
PROVIDERS: ATTEND Family Medicine
DX: R39.15 Urgency of urination (principal); I25.10 Atherosclerotic heart disease of native coronary artery without angina pectoris; E11.8 Type 2 diabetes mellitus with unspecified complications
CPT/HCPCS: 71046; 80048; 81002; 83036; 87086; G0463

== ENCOUNTER → 2019-05-10 | Outpatient (CLI) | payer MEDICARE ==
--- NOTE | 2019-05-10 16:50 | REP ---
HISTORY: Cough and congestion. COMPARISON: Multiple, the latest 06/16/2016. There is evidence of fibrotic change, status quo. There is a discoid opacity in the left mid lung field on the frontal view. This likely represents discoid atelectasis. Chronic fibrotic changes seen in the lung bases, status quo. There is cardiomegaly, status quo. No acute patchy parenchymal opacities or pleural effusions have developed. There is no change in the osseous structures. IMPRESSION: Chronic changes and other findings as described above. Electronically Signed by Dev Dinh DO 05/10/2019 05:05 P
== END ==
LOC: M CLY 14:49
PROVIDERS: ATTEND Family Medicine
DX: R91.8 Other nonspecific abnormal finding of lung field (principal); I25.10 Atherosclerotic heart disease of native coronary artery without angina pectoris

== ENCOUNTER → 2019-06-02 | Outpatient (CLI) | payer MEDICARE ==
[~2019-06-02] MED LIST changes: -BUPR300T34 PO; +BUPR300T92 PO
--- NOTE | 2019-06-06 04:24 | ECWPNPC ---
PATIENT NAME: WEN SCHWAB : 1940 GENDER: FEMALE VISIT DATE: 06/02/2019 DISCHARGE DATE: 06/02/19 1347 VISIT LOCKED DATE TIME: PHYSICIAN: AISHWARYA CARRERA PHYSICIAN PAGER NO: [phone] RESOURCE: AISHWARYA CARRERA REASON FOR APPOINTMENT 1. BACK/MEDICATION HISTORY OF PRESENT ILLNESS HISTORY OF PRESENT ILLNESS: PAIN THE PATIENT DESCRIBES THE PAIN... 79-YEAR-OLD FEMALE IN FOR CHRONIC PAIN FOLLOW-UP. PATIENT WAS STARTED ON BELBUCA AT LAST CLINIC VISIT AND ADMITS TODAY THAT SHE IS UNSURE IF IT IS HELPFUL AT THIS CURRENT DOSAGE. SHE RATES HER PAIN CURRENTLY AT A 9 OUT OF 10 AND DESCRIBES IT ACHING, SHARP, BURNING, STABBING, SORE, SHOOTING, AND TENDER. FALL RISK SCREENING: SCREENING :NO FALLS REPORTED IN THE LAST YEAR CURRENT MEDICATIONS TAKING NITROGLYCERIN 0.4 MG TABLET SUBLINGUAL DIRECTED SUBLINGUAL TAKING TYLENOL 325 MG TABLET 1 TABLET NEEDED ORALLY EVERY 4 HRS TAKING VENTOLIN HFA 108 (90 BASE) MCG/ACT AEROSOL SOLUTION 2 PUFFS NEEDED INHALATION EVERY 6 HRS TAKING TRIAMCINOLONE ACETONIDE (PF) CREAM TO ELBOWS NEEDED TAKING CLARITIN 10 MG TABLET 1 TABLET ORALLY ONCE A DAY TAKING MIRALAX - POWDER DIRECTED ORALLY NEEDED TAKING TORSEMIDE 100 MG TABLET 1/2 TABLET ORALLY TWICE A DAY TAKING NOVOLOG FLEXPEN 100 UNIT/ML SOLUTION PEN-INJECTOR DIRECTED SUBCUTANEOUS TAKING LANTUS SOLOSTAR 100 UNIT/ML SOLUTION PEN-INJECTOR 32 UNITS SUBCUTANEOUS DAILY TAKING WELLBUTRIN XL 300 MG TABLET EXTENDED RELEASE 24 HOUR 1 TABLET IN THE MORNING ORALLY ONCE A DAY TAKING WELLBUTRIN XL 150 MG TABLET EXTENDED RELEASE 24 HOUR 1 TABLET IN THE MORNING ORALLY ONCE A DAY TAKING SERTRALINE HCL 50 MG TABLET 1 TABLET ORALLY ONCE A DAY TAKING NYSTATIN 680457 UNIT/GM POWDER 1 APPLICATION TO AFFECTED AREA EXTERNALLY TWICE A DAY TAKING CARVEDILOL 25 MG TABLET 1 TABLET ORALLY TWICE A DAY TAKING OMEPRAZOLE 40 MG CAPSULE DELAYED RELEASE 1 CAPSULE ORALLY ONCE A DAY TAKING SPIRONOLACTONE 25 MG TABLET 1 TABLET ORALLY ONCE A DAY TAKING BACLOFEN 5 MG TABLET DIRECTED ORALLY TWICE DAILY NEEDED TAKING PLAVIX 75 MG TABLET 1 TABLET ORALLY ONCE A DAY TAKING REQUIP 0.25 MG 1-2 TABLETS 1-3 HOURS BEFORE BED AT BEDTIME TAKING LORAZEPAM 1 MG TABLET 1 TABLET AT BEDTIME NEEDED ORALLY ONCE A DAY, NOTES: [id number] TAKING AMLODIPINE BESYLATE 10 MG TABLET 1 TABLET ORALLY ONCE A DAY TAKING ROPINIROLE HCL 0.25 MG TABLET 1 TABLET 1 TO 3 HOURS BEFORE BEDTIME ORALLY ONCE A DAY TAKING BELBUCA 75 MCG FILM 1 FILM TO THE GUM BUCALLY ONCE A DAY NOT-TAKING DOXYCYCLINE HYCLATE 100 MG TABLET 1 TABLET ORALLY EVERY 12 HRS NOT-TAKING AMLODIPINE BESYLATE 5 MG TABLET 1 TABLET ORALLY ONCE A DAY MEDICATION LIST REVIEWED AND RECONCILED WITH THE PATIENT PAST MEDICAL HISTORY LAST COLONONSCPY 2000 LAST MAMMOGRAM-2013 PAP N/A SECONDARY TO AGE OVER 69, NOT HIGH RISK DM DEPRESSION NARCOTIC WITHDRAWAL (OVERDOSE) HYPERTENSION ANEMIA HYPERLIPIDEMIA CAD MYALGIA DUE TO ZOCOR BREAST CANCER, LEFT DUCTAL CARCINOMA IN SITU., S/P RADIATION THERAPY. 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, EF 35%, OSTEOARTHRITIS GERD CHRONIC COUGH INSOMNIA LOW BACK PAIN ALLERGIES AMARYL: SHAKINESS - ALLERGY STRAWBERRY: MOUTH BLISTERS - ALLERGY ZOCOR 20: MYALGIAS &ARTHRALGIAS - ALLERGY CRESTOR : MYALGIA & ARTHRALGIA - ALLERGY CODEINE: BURNING UPSET STOMAC - SIDE EFFECTS FENTANYL: UPSET STOMACH - SIDE EFFECTS GABAPENTIN: BALANCE ISSUES, HALUCINATION - SIDE EFFECTS TRAZADONE: CONFUSION - SIDE EFFECTS LYRICA: DYSPNEA - ALLERGY BYETTA 10 MCG PEN: WEIRD FEELING - SIDE EFFECTS GLIMEPIRIDE: UNKNOWN AMOXICILLIN: GI UPSET - SIDE EFFECTS CI PIGMENT BLUE 63: UNKNOWN DULOXETINE HCL: GI UPSET - SIDE EFFECTS EXENATIDE: UNKNOWN CELEBREX: NAUSEA/VOMITING - SIDE EFFECTS SURGICAL HISTORY KNEE REPLACEMENT (RIGHT) 2010 HYSTERECTOMY GALL BLADDER ARTHOSCOPY PRIOR TO RT KNEE REPLACEMENT DHARA CARPAL TUNNEL KNEE REPLACEMENT (LEFT) LEFT LUMPECTOMY 04/23/[address] RENAE 11/28/15 RCA DRUG ELUTING STENT 2007 TONGUE BX (NEGATIVE) 11/2018 FAMILY HISTORY FATHER: , CANCER, COLON, DIAGNOSED WITH OTHER MALIGNANT NEOPLASM OF UNSPECIFIED SITE MOTHER: , CVA, CARDIAC DISEASE, UNSPECIFIED HEART DISEASE, UNSPECIFIED CEREBRAL ARTERY OCCLUSION WITH CEREBRAL INFARCTION SIBLINGS: , HEART PROBLEMS--CVA, UNSPECIFIED CEREBRAL ARTERY OCCLUSION WITH CEREBRAL INFARCTION, OTHER SPECIFIED CONDITIONS INFLUENCING HEALTH STATUS 3 SISTER(S) . 2 SON(S) , 1 DAUGHTER(S) - HEALTHY. FATHER-PROSTATE CA\XZLOMDI-NOEAHTCD-UWHANY, ARTHRITIS\NSISTER-STROKE. SOCIAL HISTORY GENERAL: TOBACCO USE ARE YOU A:FORMER SMOKER HOW LONG HAS IT BEEN SINCE YOU LAST SMOKED?> 10 YEARS LANGUAGE LANGUAGES SPOKEN:SOLOMON ISLANDER DOMESTIC VIOLENCE DO YOU FEEL SAFE IN YOUR ENVIRONMENT?YES NEW PATIENT PAIN DIARY PATIENT DESCRIBES PAIN :BURNING, HAVE IT ALL THE TIME, SHARP, STABBING, TENDER, SORE, SHOOTING FROM 0-10, WHAT LEVEL IS YOUR PAIN TODAY?9 BMI CARE GOAL FOLLOW-UP ABOVE NORMAL BMI FOLLOW-UPDIETARY MANAGEMENT EDUCATION, GUIDANCE, AND COUNSELING RECREATIONAL DRUG USE DRUG USE?NO DENIES12/06/2018 LEARNING BARRIERS / SPECIAL NEEDS CHANGE FROM LAST VISIT?NO BARRIERS TO LEARNING?NO HEARING IMPAIRED?NO VISION IMPAIRED?YES COGNITIVELY IMPAIRED?NO :CORRECTIVE LENSES READINESS TO LEARN?YES LEARNING PREFERENCES?NO LEARNING CAPABILITIES PRESENT?YES EMOTIONAL BARRIERS?NO SPECIAL DEVICES?YES :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 N/A HAS THE PATIENT BEEN EDUCATED REGARDING HIS/HER PLAN OF CARE?YES HAS THE PATIENT BEEN EDUCATED REGARDING PAIN, THE RISK FOR PAIN, THE IMPORTANCE OF EFFECTIVE PAIN MANAGEMENT, AND THE PAIN ASSESSMENT PROCESS?YES LATEX QUESTIONNAIRE LATEX ALLERGY : HAVE YOU EVER DEVELOPED ANY TYPE OF REACTION AFTER HANDLING LATEX PRODUCTS SUCH RUBBER GLOVES, CONDOMS, DIAPHRAGMS, BALLOONS, SOCKS, OR UNDERWEAR?NO LATEX ALLERGY : HAVE YOU EVER DEVELOPED ANY TYPE OF REACTION DURING OR AFTER DENTAL APPOINTMENT, VAGINAL/RECTAL EXAMINATION, SURGICAL PROCEDURE, OR ANY OTHER EXPOSURE?NO DATE ASKED : 02/22/2019 LATEX RISK : HAVE YOU EVER HAD ANY DIFFICULTY BREATHING OR HIVES AFTER EATING OR HANDLING ANY FRUITS, OR VEGETABLES; SUCH KIWI, BANANAS, STONE FRUITS, OR CHESTNUTSNO LATEX RISK : DO YOU HAVE A PREVIOUS PERSONAL HISTORY OF MORE THAN NINE SURGERIES, SPINA BIFIDA, OR REPEATED CATHERIZATIONS? YES - PLEASE INDICATE : > 9 SURGERIES LATEX RISK : ARE YOU FREQUENTLY EXPOSED TO LATEX PRODUCTS IN YOUR OCCUPATION?NO CAFFEINE CAFFEINE USE?YES HOW OFTEN AND HOW MUCH? 1-2 DAILY ADVANCE DIRECTIVE ADVANCE DIRECTIVE DISCUSSED WITH PATIENT:YES HCP IS MICHELE [phone] SABIANIST [id number] BUDDHIST ALCOHOL SCREENING DID YOU HAVE A DRINK CONTAINING ALCOHOL IN THE PAST YEAR?NO POINTS0 INTERPRETATIONNEGATIVE SEXUAL HX HAD SEX IN THE LAST 12 MONTHS (VAGINAL, ORAL, OR ANAL)?NO HAVE YOU EVER HAD AN STD?NO 12/24/17 REVIEWED WITH PT. AD01/25/18 REVIEWED WITH PT LAS03/30/18 0901 REVIEWED WITH PT LAS06/20/18 1444 REVIEWED WITH PATIENT BVREVIEWED WITH PT 11/15/18 1437 BV02/22/19 1333 REVIEWED WITH PT. ADREVIEWED WITH PATIENT 03/22/19 1319 JS. HOSPITALIZATION/MAJOR DIAGNOSTIC PROCEDURE CHF/ ANEMIA 06/04/2016 SURGERY PNEUMONIA ([facility]) SEPTEMBER 2016 REVIEW OF SYSTEMS REVIEWED BY: PROVIDER: LAURA CARRERA STOREKEEPER HELPER-C . CONSTITUTIONAL: ANY CHANGE IN YOUR MEDICAL CONDITION? NO . CHILLS NO . FEVER NO . INFECTION: DO YOU HAVE NEW INFECTIONS? YES, SINUSITIS TX'D W ABX . DO YOU HAVE HISTORY OF MRSA? NO . MUSCULOSKELETAL: ANY NEW PATTERNS OF PAIN OR NUMBNESS? NO . GASTROENTEROLOGY: ANY NEW CHANGE IN BOWEL CONTROL? NO . GENITOURINARY: ANY NEW CHANGE IN BLADDER CONTROL? YES, STRESS INCONTINENCE AND URGENCY . IS THERE A CHANCE YOU COULD BE ? NO . HEMATOLOGY/LYMPH: DO YOU TAKE ANY BLOOD THINNERS? (FOR EXAMPLE- COUMADIN, PLAVIX, AGGRENOX, PLATEL, PRADAXA, OR XARELTO) YES, PLAVIX . WHEN WAS YOUR LAST DOSE? DATE: TIME: . NEUROLOGY: HAVE YOU FALLEN IN THE PAST 12 MONTHS? NO . ANY NEW EXTREMITY NUMBNESS OR WEAKNESS? NO . CARDIOLOGY: DO YOU HAVE A PACEMAKER OR DEFIBRILLATOR? NO . RESPIRATORY: HAVE YOU BEEN SICK IN THE PAST WEEK? YES, SINUSITIS TX'D W ABX . FEVER NO . FLU LIKE SYMPTOMS? NO . COUGH NO . INTEGUMENTARY: DO YOU HAVE ANY RASHES OR OPEN SORES? NO . ALLERGIC/IMMUNO: ARE YOU ALLERGIC TO IV DYE? NO . ANY NEW ALLERGIES? NO . PSYCHIATRIC: DO YOU HAVE THOUGHTS OF HURTING YOURSELF OR SOMEONE ELSE? NO . ARE YOU ABUSED, NEGLECTED, OR IN AN UNSAFE ENVIRONMENT? NO . ENDOCRINOLOGY: ARE YOU DIABETIC? YES . OTHER: DO YOU NEED ANY PRESCRIPTIONS? NO . IF YES, PLEASE LIST: ____ . ANY NEW PROBLEMS WITH YOUR MEDICATIONS? NO . WHEN DID YOU LAST EAT? ____ . WHEN DID YOU LAST DRINK? ____ . WHAT DID YOU LAST DRINK? ____ . NAME OF PERSON DRIVING YOU HOME? ____ . DO YOU HAVE ANY OTHER QUESTIONS OR CONCERNS NO . VITAL SIGNS WT 201.4 LBS, HT 64.5 IN, BMI 34.03 INDEX, BP 181/79 MM HG, HR 62 /MIN, RR 18 /MIN, TEMP 97.3 F, OXYGEN SAT % 95%, NA INITIALS SC 13:08, REVIEWED BY: MARCELA. EXAMINATION GENERAL EXAMINATION: GENERALNO ACUTE DISTRESS, WELL NOURISHED AND HYDRATED. PSYCHAPPROPRIATE MOOD AND AFFECT . LUNGS:CLEAR TO AUSCULTATION BILATERALLY, NO WHEEZES, RHONCHI, RALES. HEART:NO MURMURS, REGULAR RATE AND RHYTHM. ASSESSMENTS SPONDYLOSIS OF LUMBOSACRAL REGION WITHOUT MYELOPATHY OR RADICULOPATHY - M47.817 (PRIMARY) TREATMENT SPONDYLOSIS OF LUMBOSACRAL REGION WITHOUT MYELOPATHY OR RADICULOPATHY INCREASE BELBUCA FILM, 75 MCG, 1 FILM TO THE GUM, BUCALLY, EVERY 12 HRS, 30 DAYS, 60 CLINICAL NOTES: 79-YEAR-OLD FEMALE IN FOR CHRONIC PAIN FOLLOW-UP. GIVEN PRESENTING SYMPTOMS AND RESULTS OF PHYSICAL EXAMINATION RECOMMENDED INCREASING BELBUCA 75 MG TO TWICE A DAY WITH FOLLOW-UP IN 2 MONTHS TO DETERMINE EFFICACY OF TREATMENT. PATIENT HAS EXPRESSED UNDERSTANDING OF AND WAS IN AGREEMENT WITH TREATMENT PLAN. GIVEN TIME TO ASK QUESTIONS AND EXPRESS CONCERNS., ISTOP REGISTRY REVIEWED AND DEMONSTRATES COMPLLIANCE. (REF # [id number] ) BRINGS IN MEDICATIONS WHICH IS APPROPRIATE FOR WHAT WAS DISPENSED. RECENT URINE TOXICOLOGY REVIEWED. NO UNAUTHORIZED MEDICATIONS. NO ILLICIT SUBSTANCES AND PRESCRIBED MEDICATIONS WERE PRESENT. PROCEDURE CODES FA211 ESTABILISHED PATIENT [facility] CHARGE DISPOSITION & COMMUNICATION FOLLOW UP 2 MONTHS (REASON: BACK PAIN) ELECTRONICALLY SIGNED BY LUMA BURGOS ON 06/05/2019 AT 01:15 PM EST DISCLAIMER : THIS IS A VISIT SUMMARY EXTRACTED FROM THE [employer] CHART. IT IS NOT A COPY OF THE [employer] PROGRESS NOTE. MTDD
== END ==
LOC: M PAIN 13:00
PROVIDERS: ATTEND Family Medicine
DX: M47.817 Spondylosis without myelopathy or radiculopathy, lumbosacral region (principal)

== ENCOUNTER → 2019-09-19 | Outpatient (REF) | payer MEDICARE ==
[~2019-09-19] MED LIST changes: +VITA-243 PO; -VITA500T PO
[2019-09-19 18:21] LABS: HEMOGLOBIN A1c 7.4 %
[2019-09-19 19:14] LABS: ALBUMIN 3.2 GM/DL (3.2-5.2); BILIRUBIN,TOTAL 0.3 MG/DL (0.2-1.0); CALCIUM LEVEL 8.9 MG/DL (8.8-10.2); CHOLESTEROL RISK RATIO 4.62 (<5); CREATININE FOR GFR 1.26 MG/DL (0.55-1.30); GLOMERULAR FILTRATION RATE 43.8 (>39); POTASSIUM SERUM 2.9 MEQ/L (3.5-5.1); TOTAL PROTEIN 7.1 GM/DL (6.4-8.2)
== END ==
LOC: M SFHCCLAY 10:42
PROVIDERS: ATTEND Family Medicine
DX: I25.10 Atherosclerotic heart disease of native coronary artery without angina pectoris (principal); E11.8 Type 2 diabetes mellitus with unspecified complications
CPT/HCPCS: 80053; 80061; 83036; G0463

== ENCOUNTER 2020-04-01 07:38 | Inpatient (IN) | payer MEDICARE ==
[~2020-04-01] VITALS: Ht 165.1 cm; Wt 86.2 kg
[~2020-04-01 07:38] MED LIST changes: -AMLO10TA5 PO; +AMLO1TAB24 PO; +AMLO1TAB25 PO; -AMLO5TAB6 PO
[2020-04-01] MEDS ORDERED: BOOSTRIX/ADACEL VACCINE (DIPHTH/PERTUSS/ACELL/TETANUS) 0.5ML SYR IM ONE (08:15)
--- NOTE | 2020-04-01 08:21 | REP ---
INDICATION: FALL ON THINNERS. COMPARISON: Comparison study May 20, 2015.. TECHNIQUE: Helical scanning is acquired. 5 mm axial images were reformatted. Coronal MPR images were generated. FINDINGS: Bone window settings demonstrate an intact bony calvarium. There is no evidence of skull fracture or incidental bony calvarial lesion. The visualized paranasal sinuses appear clear. No intraorbital abnormality is seen. On soft tissue window setting images; the lateral, third, and fourth ventricles are normal in size and position. Galindo-white differentiation pattern is normal above and below the tentorium. There are is no evidence of intracranial hemorrhage. No mass, edema, infarction, or midline shift is seen. No extra-axial fluid collection is appreciated. There is generalized volume loss. Vascular calcification is observed in the distal vertebral and distal internal carotid arteries. Mild small vessel changes are noted. Study is unchanged from May 20, 2015. IMPRESSION: Mild generalized volume loss and vascular calcification. Mild small vessel atherosclerotic changes. No acute intracranial abnormality.. <Electronically signed by Austin Joaquin > 04/01/20 3228
--- NOTE | 2020-04-01 08:24 | REP ---
INDICATION: FALL ON THINNERS. COMPARISON: None. TECHNIQUE: Helical scanning is acquired and overlapping 2 mm high resolution axial images were generated and reviewed at bone and soft tissue window settings. Coronal and sagittal multiplanar re-formations images are generated. FINDINGS: There is no evidence of cervical spine element fracture. No skull base fracture is seen. Cervical vertebral body heights are preserved. Alignment is normal. Facet joints are normally aligned bilaterally at each cervical level on multiplanar re-formations images. There is no evidence of intraspinal or paraspinal hematoma. No extra vertebral abnormality is seen. There is degenerative disc narrowing and anterior posterior osteophyte formation at C5-6 and C6-7. There is straightening. Mild facet osteoarthritic hypertrophy is seen in the midcervical spine. There is sub cortical cyst formation on either side of the left C4-5 and C5-6 facet joints. IMPRESSION: Degenerative disc disease at C5-6 and C6-7. 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 No traumatic abnormality. Straightening.. <Electronically signed by Austin Joaquin > 04/01/20 2531
[2020-04-01] MEDS ORDERED: ACETAMINOPHEN 500 MG TAB PO ONE (08:45)
[2020-04-01] MEDS: LEVEMIR (INSULIN DETEMIR) 1 UNITS/0.01ML SC SCH ×2 (09:00→21:07)
--- NOTE | 2020-04-01 09:12 | REP ---
INDICATION: trauma. COMPARISON: Chest 05/10/2019, CT chest [id number] TECHNIQUE: Three views FINDINGS: There is a levorotatory curve in the lower thoracic upper lumbar spine with marginal osteophytes throughout mid and lower thoracic and upper lumbar spine. Posterior rib articulations are intact no compression deformities in the spine. Relative sparing of the upper thoracic region. Cervicothoracic junction aligns normally on the swimmer's view. IMPRESSION: Diffuse degenerative disc changes mid to lower thoracic spine with a levorotatory curve lower thoracic/ upper lumbar spine. Marginal osteophytes and disc space narrowing at all of these levels. No compression deformity or destructive lesion. <Electronically signed by Rohit Boyd > 04/01/20 0972
--- NOTE | 2020-04-01 09:46 | REP ---
INDICATION: hypoxia. COMPARISON: Chest 05/10/2019, 04/26/2017 TECHNIQUE: AP portable seated chest FINDINGS: Lungs less well inflated. There is diffuse interstitial fibrosis. Cardiomegaly, left atrial and ventricular enlargement with vascular redistribution and some interstitial edema. Bibasilar infiltrates or atelectasis are noted, left greater than right. There is a a suspected effusions, left greater than right. A tortuous ectatic calcified aorta again seen. Bones demineralized with degenerative changes in the spine. IMPRESSION: 1. Cardiomegaly with vascular redistribution and interstitial edema superimposed on fibrosis. 2. Bibasilar infiltrates left greater than right and suspected effusions also left greater than right. 3. Tortuous calcified aorta and some degenerative changes in the spine. <Electronically signed by Rohit Boyd > 04/01/20 0990
[2020-04-01 10:06] LABS: BASO # 0.1 10^3/uL (0.0-0.2); BASO % 0.8 % (0.0-1.0); EOS # 0.2 10^3/uL (0.0-0.5); EOS % 2.3 % (0.0-3.0); HEMATOCRIT 29.7 % (36.0-47.0); HEMOGLOBIN 8.3 g/dl (12.0-15.5); LYMPH # 0.9 10^3/uL (1.5-5.0); LYMPH % 11.1 % (24.0-44.0); MEAN CORPUSCULAR HEMOGLOBIN 23.2 pg (27.0-33.0); MEAN CORPUSCULAR HGB CONC 27.9 g/dl (32.0-36.5); MEAN CORPUSCULAR VOLUME 83.2 fl (80.0-96.0); MONO # 0.5 10^3/uL (0.0-0.8); MONO % 5.7 % (0.0-5.0); NEUTROPHILS # 6.3 10^3/uL (1.5-8.5); NEUTROPHILS % 79.8 % (36.0-66.0); PLATELET COUNT, AUTOMATED 274 10^3/uL (150-450); RED BLOOD COUNT 3.57 10^6/uL (4.00-5.40); WHITE BLOOD COUNT 7.8 10^3/uL (4.0-10.0)
[2020-04-01] MEDS ORDERED: SPIRONOLACTONE 25 MG TAB PO STA (10:06)
[2020-04-01] MEDS ORDERED: ISOSORBIDE MON. (IMDUR) 30 MG XR TAB PO ONE (10:15)
[2020-04-01] MEDS ORDERED: CARVedilol 6.25 MG TAB PO ONE (10:15)
[2020-04-01] MEDS ORDERED: FUROSEMIDE 40MG/4ML VIAL (J1940) IV ONE (10:15)
[2020-04-01] MEDS ORDERED: ISOSORBIDE MONONITRATE 10MG TABLET PO ONE (10:15)
[2020-04-01] MEDS ORDERED: IPRATROPIUM 0.5MG/ALBUTEROL 2.5MG INH SOL UD 3ML (DUONEB) NEB ONE (10:30)
[2020-04-01 10:38] LABS: BILIRUBIN,DIRECT 0.1 MG/DL (0.0-0.2); BILIRUBIN,TOTAL 0.3 MG/DL (0.2-1.0); THYROID STIMULATING HORMONE 4.03 uIU/ML (0.358-3.740); TOTAL PROTEIN 6.6 GM/DL (6.4-8.2)
[2020-04-01] MEDS ORDERED: NITROGLYCERIN 0.4 MG SUBL TABLET SL PRN ×2 (10:45→12:30)
[2020-04-01] MEDS ORDERED: SERT50TA29 PO (11:30)
[2020-04-01] MEDS ORDERED: CARV25TA PO (11:30)
[2020-04-01] MEDS ORDERED: TORS100T PO (11:42)
[2020-04-01] MEDS ORDERED: AMLO1TAB25 PO (11:42)
[2020-04-01] MEDS: HumaLOG INSULIN (NovoLOG) PER UNIT SC SCH ×3 (12:00→21:00)
[2020-04-01] MEDS ORDERED: GLUCOSE 4GM CHEW TABLET PO PRN (12:30)
[2020-04-01] MEDS ORDERED: DEXTROSE 50% 50 ML SYRINGE IV PRN (12:30)
[2020-04-01] MEDS ORDERED: LABETALOL 100MG/20ML VIAL IV PRN (12:30)
[2020-04-01] MEDS ORDERED: GLUCAGON INJ 1MG VIAL SC PRN (12:30)
[2020-04-01 13:06] LABS: CALCIUM LEVEL 9.4 MG/DL (8.8-10.2); CK-MB VALUE MASS 7.8 NG/ML (<3.6); CREATININE FOR GFR 1.15 MG/DL (0.55-1.30); FREE T4 0.88 NG/DL (0.76-1.46); GLOMERULAR FILTRATION RATE 48.6 (>39); MAGNESIUM LEVEL 2.2 MG/DL (1.8-2.4); MB/CK RELATIVE INDEX 5.78 (< OR =4); PERCENT SATURATION 6.2 % (13.2-45.0); TROPONIN I 0.04 NG/ML (< 0.10)
[2020-04-01 13:09] LABS: CORTISOL AM 22.1 UG/DL (4.3-22.4); TOTAL T3 111.9 NG/DL (60.0-181.0)
--- NOTE | 2020-04-01 15:47 | HPEPDOC ---
General Date of Admission Apr 01, 2020 at 12:18 Date of Service: Apr 01, 2020 Chief Complaint The patient is a 80-year-old female admitted with a reason for visit shortness of breath / fall History of Present Illness Presenting compliant: History of present illness: 80-year-old female patient presented to the emergency department after having a fall at home. She reports to have lost her balance and fell and hit her head to the wooden footboard of the bed and had a laceration wound behind her head in occipital region . She denies having any dizziness, loss of consciousness, naus ea, incontinence of bowel or bladder, seizure like activity with the fall. He reports to have headache after the fall, and neck pain 9/10 in intensity, dull in character, no radiation and no aggravating or relieving factors. He reports to have shortness of breath since months more so with emotional/sad and not with exertion. Patient states she has nonproductive cough since 6-8 months due to postnasal drip. In the emergency department her laceration of the scalp of one and a half inch was stapled, and she was found to have elevated blood pressure up to 201/101 mm Hg and was in hypertensive urgency. Hospitalist service was called for admission. Past medical history: - Hypertension - Diabetes mellitus - Hyperlipidemia - Coronary artery disease s/p RCA stent (2007) - Osteoarthritis/rheumatoid arthritis - GERD - Depression - Takotsubo cardiomyopathy in 2013 - Chronic back pain/ spondylosis of the lumbar region. 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 Surgical history: - Bilateral knee replacement - Hysterectomy - Cystectomy - Bilateral carpal tunnel repair - Right coronary artery drug eluting stent 2007 Social history: She is a former smoker who has quit smoking more than 10 years ago, denies drinking alcohol, denies any recreational drug use, illicit drug use Family History: Father: from pancreatic cancer. Mother: , from stroke, cardiac disease. Siblings: , heart problems, CVA, stroke. REVIEW OF SYSTEMS: Constitutional: Denies having fever, chills, night sweats, weight loss. Eyes: Denies any blurry vision or double vision. Cardiovascular: Denies any chest pain. Respiratory: Reports to have shortness of breath and cough Gastrointestinal (GI): Denies any nausea or vomiting. Genitourinary: Denies dysuria, hematuria. Musculoskeletal: Reports to have back pain Skin: Denies any rashes or ulcers. Hematology/Oncology: Denies any easy bleeding or bruising. Endocrine: Denies cold intolerance, heat intolerance, polydipsia, polyphagia, polyuria All other review of systems is negative. PHYSICAL EXAMINATION: Vital Signs: Temperature: 97.9 Pulse: 58 RR: 20 BP: 210/101 mm Hg during the examination. Oxygen saturation %: 98% on 2 L during examination General: Patient is awake, alert, oriented times three, laying in bed , no apparent distress. She has a left occipital laceration with 3 reid and mild tenderness in that region. Eyes: Conjunctiva clear, pupils equal round and reactive to light. ENT: He reports to have hearing difficulty on the right side. No nasal deviation, oropharynx clear, no uvula seen and she reports she had surgery. Neck: supple, no masses, trachea midline, no thyroid nodules, masses, tenderness or enlargement. Cardiovascular: S1, S2, normal rhythm, systolic murmur grade 2, or gallop. Respiratory: Chest is clear to auscultation bilaterally in the upper lobes, mild crackles heard in the bilateral lower lobes , No rhonchi, wheezes or rubs. Abdomen: Soft, bowel sounds positive, no bruits. Nontender on palpation. Extremities: No clubbing or cyanosis. Trace edema appreciated bilaterally, no tenderness. Central nervous system (PRODUCTION [employer]): Awake, alert and fully oriented. Cranial nerves III-XII grossly intact. Motor: Strength normal, patient moves all extremities. Skin: No rashes, lesions, ulcerations. Imaging: Head CT without contrast: 04/01/2020, reported as mild generalized volume loss and vascular calcification. Mild small vessel atherosclerotic changes. No acute intracranial abnormality Cervical spinal CT without contrast: 04/01/2020, reported as degenerative disc disease at C5 - C6 and C6 - C7. Osteoarthritic facet disease in the mild cervical spine, most pronounced at C4-C5 and C5-C6. No traumatic abnormalities. Straightening. Thoracic spine: 04/01/2020, diffuse degenerative disc changes mild to low thoracic spine with a levorotatory curve lower thoracic/upper lumbar spine. Marginal osteophytes and disc space narrowing at all of these levels. No compression deformity or destructive lesion. Chest x-ray: 04/01/2020, cardiomegaly with vascular redistribution and interstitial edema superimposed on fibrosis. Bibasilar infiltrates left greater than right and suspected effusion also left greater than right. Tortuous calcified aorta and some degenerative changes in the spine. Assessment: Mrs. Deleon is a 80-year-old female patient with past medical history of HTN, IDDM2, HDL, CAD s/p stenting and RCA, breast cancer s/p radiation, depression, takotsubo cardiomyopathy presented to the emergency department following a fall and having a laceration wound behind the head. In the ED she had reid for her laceration (laceration 1-1/2 inches), and was hypoxic and hypertensive with blood pressure of 201/101mm Hg. Plan: Mechanical fall 2/2 polypharmacy: - Head laceration with reid performed in the ER - Patient is on multiple medications at home. - Will hold off off of bupropion, sertraline for now. - History of diabetes, may be diabetic neuropathy. - will start PT and OT Syncope: - Very unlikely as patient had no prodromal symptoms. - Troponin x1 negative; will continue to trend them. - Will get an echo to rule out any heart conditions as her proBNP is elevated. - Patient has elevated TSH levels, but normal free T4 levels. - c/w Telemetry monitoring Hypertensive urgency: - Most likely 2/2 to pain. - Patient is on multiple blood pressure medications at home and reports her home blood pressure was always in 170s. We will work her up for resistant hypertension; reports she didn't take her AM medications - Will get renal ultrasound and Doppler to rule out renal artery stenosis. - Will start her on labetalol 10 mg when necessary with holding parameters(>185mm Hg) - Will continue her amlodipine 10mg, spinal lactone 25 mg, Coreg 25 mg. - Patient was taking torsemide 50 mg at home so will start her on furosemide 60 mg IV twice a day. - Will start her on tramadol when necessary for pain. Hypoxemia respiratory failure - possibly 2/2 CHF - In the emergency department she was in 80s on room air at one point. And imaging showing infiltrations/effusions in the lung. - Will check ECHO - Strict ins/outs, daily weights, head of bed elevation / fluid restriction -Patient is now saturating at 96% on room air. - Will start her on Lasix 60mg. Normocytic anemia - Hg baseline of 11-12 - Patient has an hemoglobin of 8.3 - Will get iron studies / B12 / Folate to rule out cause of her anemia. - Will transfuse as needed Diabetes mellitus type 2: - Will start her on sliding insulin scale. - She was on 22 units of insulin at home. - Will start her on 10 units of Levemir and sliding scale. - Monitor her sugar levels. GERD: - Continue omeprazole 40 mg by mouth. Coronary artery disease s/p stenting: - Will continue Plavix 75 mg. DVT prophylaxis: - Lovenox 40 mg. Home Medications Scheduled Amlodipine Besylate (Amlodipine Besylate) 10 Mg Tablet, 10 MG PO DAILY, (Reported) LAST FILLED 09/24/19 X 90 DAYS - PATIENT STATES TAKING AND ON LAST DR VISIT IN AUGUST Bupropion HCl (Bupropion Xl) 300 Mg Tab, 300 MG PO DAILY, (Reported) 450MG TOTAL DAILY Bupropion Hcl (Bupropion Xl) 150 Mg Tab, 150 MG PO DAILY, (Reported) 450MG TOTAL DAILY Carvedilol (Carvedilol) 25 Mg Tablet, 25 MG PO BID, (Reported) Clopidogrel Bisulfate (Clopidogrel) 75 Mg Tab, 75 MG PO DAILY, (Reported) Insulin Glargine (Lantus) 1 Units/0.01 Ml Susp, 22 UNITS SC QHS, (Reported) Insulin Human Lispro (Novolog) 100 U/Ml Inj, 1 DOSE SC AC, (Reported) PER SLIDING SCALE Lorazepam (Ativan) 1 Mg Tab, 1 MG PO QHS, (Reported) Omeprazole (Omeprazole) 40 Mg Cap, 40 MG PO DAILY, (Reported) Sertraline HCl (Sertraline HCl) 50 Mg Tablet, 50 MG PO DAILY, (Reported) Spironolactone (Spironolactone) 25 Mg Tab, 25 MG PO DAILY, (Reported) LAST FILLED 03/2019 X 90 DAYS- PATIENT STATES TAKING AND ON MD VISIT IN AUGUST 2019 Torsemide (Torsemide) 100 Mg Tablet, 50 MG PO BID, (Reported) LAST FILLED JULY 2019 X 90 DAYS - PATIENT STATES TAKING AND ON LAST DR VISIT FROM AUGUST Scheduled PRN Nitroglycerin (Nitrostat) 0.4 Mg Subl, 0.4 MG SL NITRO PRN for CHEST PAIN, (Reported) Allergies Coded Allergies: glimepiride (Verified Allergy, Intermediate, 04/01/20) strawberry (Verified Allergy, Mild, SORES IN MOUTH, 04/01/20) blue dye (Verified Allergy, Unknown, 04/01/20) pregabalin (Verified Allergy, Unknown, 04/01/20) amoxicillin (Verified Adverse Reaction, Intermediate, VOMITING, 04/01/20) clavulanic acid (Verified Adverse Reaction, Intermediate, VOMITING, 04/01/20) codeine (Verified Adverse Reaction, Intermediate, NAUSEA, 04/01/20) duloxetine (Verified Adverse Reaction, Intermediate, INSOMNIA, 04/01/20) gabapentin (Verified Adverse Reaction, Intermediate, CONFUSION, 04/01/20) trazodone (Verified Adverse Reaction, Intermediate, CONFUSION, 04/01/20) Bdvibim-Ctp-Oop Reductase Inhibitor (Verified Adverse Reaction, Mild, LEG CRAMPS, 04/01/20) phenol (Verified Adverse Reaction, Mild, "FEELS WEIRD", 04/01/20) exenatide (Verified Adverse Reaction, Unknown, ITCHINESS, 04/01/20) A-FIB/CHADSVASC A-FIB History Current/History of A-Fib/PAF?: No Current PO Anticoag Therapy: No Vital Signs Vital Signs Date Time Temp Pulse Resp B/P (MAP) Pulse Ox O2 Delivery O2 Flow Rate FiO2 04/01/20 13:53 97.9 58 20 148/71 (96) 99 04/01/20 08:06 Nasal Cannula 2.0 Laboratory Data Labs 24H Laboratory Tests 2 04/01/20 09:48: Immature Granulocyte % (Auto) 0.3, Neutrophils (%) (Auto) 79.8H, Lymphocytes (%) (Auto) 11.1L, Monocytes (%) (Auto) 5.7H, Eosinophils (%) (Auto) 2.3, Basophils (%) (Auto) 0.8, Neutrophils # (Auto) 6.3, Lymphocytes # (Auto) 0.9L, Monocytes # (Auto) 0.5, Eosinophils # (Auto) 0.2, Basophils # (Auto) 0.1, Nucleated Red Blood Cells % (auto) 0.0, Anion Gap 5L, Glomerular Filtration Rate 48.6, Calcium Level 9.4, Magnesium Level 2.2, Iron Level 25L, Total Iron Binding Capacity 404, Transferrin % Saturation 6.2L, Ferritin 11, Total Bilirubin 0.3, Direct Bilirubin 0.1, Aspartate Amino Transf (AST/SGOT) 18, Alanine Aminotransferase (ALT/SGPT) 14, Alkaline Phosphatase 85, Total Creatine Kinase 135, Creatine Kinase MB 7.8H, Creatine Kinase MB Relative Index 5.78H, Troponin I 0.04, N U-[id number]-I-Type Natriuretic Peptide 6186H, Total Protein 6.6, Albumin 3.0L, Albumin/Globulin Ratio 0.8L, Vitamin B12 Level 361, Folate 9.0, Thyroid Stimulating Hormone (TSH) 4.030H, Free Thyroxine 0.88, Total Triiodothyronine 111.9, Cortisol AM Sample 22.1 04/01/20 09:55: POC Glucose (Misc Panel) 120H, POC Sodium (Misc Panel) 144, POC Potassium (Misc Panel) 3.9, POC Chloride (Misc Panel) 106, POC Total CO2 (Misc Panel) 30.0H, POC Blood Urea Nitrogen (Misc Panel 18, POC Ionized Calcium (Misc Panel) 5.1, POC Creatinine (Misc Panel) 1.1, POC Hematocrit (Misc Panel) 28.0L 04/01/20 09:58: POC Troponin I (Misc) 0.03 04/01/20 10:29: POC Total CO2 (Misc Panel) 29.0H, POC pH (Misc Panel) 7.352, POC Base Excess (Misc Panel) 2.0, POC Saturated Percent O2 (Misc) 92L, POC pO2 (Misc Panel) 69.0L, POC pCO2 (Misc Panel) 49.0H, POC HCO3 (Misc Panel) 27.2H CBC/BMP Laboratory Tests 04/01/20 09:48 Microbiology Microbiology 04/01/20 Respiratory [place] ([place] [place] - Final, Complete Plan / VTE VTE Prophylaxis Ordered?: Yes GME ATTESTATION GME ATTESTATION My faculty preceptor for this patient encounter was physically present during the encounter and was fully available. All aspects of the patient interview, examination, medical decision making process, and medical care plan development were reviewed and approved by the faculty preceptor. The faculty preceptor is aware and concurs with the plan as stated in the body of this note and will attest to such by his/her cosignature. ATTENDING NOTE I, Luly Pepper, have independently examined this patient and performed my own physical exam, as well as reviewed the documentation and edited where necessary. I have discussed in detail with the resident / student the findings and plan of treatment as documented by the resident / student and edited their note. I agree with their findings and treatment plan and have edited their documentation. I will continue to follow the patient during this hospital stay. Juan J Pritchard MD Apr 01, 2020 15:07 LULY PEPPER MD Apr 01, 2020 15:58
[2020-04-01 16:30] VITALS: BP 202/92
[2020-04-01] MEDS ORDERED: SLF 3 ML SYR IV PRN (16:45)
[2020-04-01] MEDS: OMEPRAZOLE 20 MG CAP PO SCH (16:52)
[2020-04-01] MEDS: FUROSEMIDE 100MG/10ML VIAL (J1940) IV SCH (16:52)
[2020-04-01] MEDS: CLOPIDOGREL 75 MG TAB PO SCH (16:53)
[2020-04-01] MEDS: amLODIPine 10 MG TAB PO SCH (16:54)
[2020-04-01] MEDS: traMADol 50 MG TAB PO PRN (16:55)
[2020-04-01 16:57] LABS: CK-MB VALUE MASS 15.2 NG/ML (<3.6); MB/CK RELATIVE INDEX 5.37 (< OR =4); TROPONIN I 0.06 NG/ML (< 0.10)
[2020-04-01 17:39] VITALS: BP 196/84
[2020-04-01 18:15] VITALS: BP 168/78
[2020-04-01 20:00] VITALS: BP 176/68
[2020-04-01] MEDS: CARVedilol 12.5 MG TAB PO SCH (21:06)
[2020-04-01] MEDS: ACETAMINOPHEN TAB 650MG DOSE (2X325MG) PO PRN (21:06)
[2020-04-01] MEDS: LORazepam 1 MG TAB PO SCH (21:06)
[2020-04-01] MEDS: SLF 3 ML SYR IV SCH (21:09)
[2020-04-01 22:41] LABS: CK-MB VALUE MASS 10.3 NG/ML (<3.6); MB/CK RELATIVE INDEX 4.17 (< OR =4); TROPONIN I 0.04 NG/ML (< 0.10)
[2020-04-02] VITALS: BP 148/60
--- NOTE | 2020-04-02 00:45 | ECGEPIP ---
[facility] - ED Test Date: 2020-04-01 Pat Name: WEN SCHWAB Department: Room: - Gender: Female Bell Spinner: : [id number] Requested By: Cindy Meredith Order Number: [id number] Reading MD: Juan Ramon Resendiz Measurements Intervals [place] Rate: 74 P: 77 ID: [id number] QRS: 18 QRSD: 125 T: 43 QT: 399 QTc: 444 Interpretive Statements SINUS RHYTHM WITH FIRST DEGREE AV BLOCK LEFT VENTRICULAR HYPERTROPHY AND ST-T CHANGE SIMILAR TO 06/09/16 Electronically Signed on 04-02-2020 0:44:44 EST by Juan Ramon Resendiz
[2020-04-02 04:00] VITALS: BP 158/64
[2020-04-02] MEDS: ACETAMINOPHEN TAB 650MG DOSE (2X325MG) PO PRN ×2 (04:40→20:30)
[2020-04-02] MEDS: SLF 3 ML SYR IV SCH ×3 (05:53→22:00)
[2020-04-02 06:53] LABS: BASO % 0.6 % (0.0-1.0); EOS # 0.2 10^3/uL (0.0-0.5); EOS % 3.2 % (0.0-3.0); HEMOGLOBIN 8.3 g/dl (12.0-15.5); LYMPH % 15.6 % (24.0-44.0); MEAN CORPUSCULAR HEMOGLOBIN 23.1 pg (27.0-33.0); MEAN CORPUSCULAR HGB CONC 28.6 g/dl (32.0-36.5); MEAN CORPUSCULAR VOLUME 80.8 fl (80.0-96.0); MONO # 0.6 10^3/uL (0.0-0.8); NEUTROPHILS # 4.4 10^3/uL (1.5-8.5); NEUTROPHILS % 71.3 % (36.0-66.0); PLATELET COUNT, AUTOMATED 285 10^3/uL (150-450); RED BLOOD COUNT 3.59 10^6/uL (4.00-5.40); WHITE BLOOD COUNT 6.2 10^3/uL (4.0-10.0)
[2020-04-02 07:19] LABS: CALCIUM LEVEL 9.2 MG/DL (8.8-10.2); CREATININE FOR GFR 1.23 MG/DL (0.55-1.30); MAGNESIUM LEVEL 1.9 MG/DL (1.8-2.4); POTASSIUM SERUM 3.4 MEQ/L (3.5-5.1)
[2020-04-02] MEDS: HumaLOG INSULIN (NovoLOG) PER UNIT SC SCH ×4 (07:30→21:00)
[2020-04-02 08:00] VITALS: BP 160/74
[2020-04-02] MEDS: ENOXAPARIN 40MG/0.4ML SYRINGE (J1650 PER 10MG) SC SCH (10:04)
[2020-04-02] MEDS: FUROSEMIDE 100MG/10ML VIAL (J1940) IV SCH ×2 (10:06→17:38)
[2020-04-02] MEDS: SPIRONOLACTONE 25 MG TAB PO SCH (10:07)
[2020-04-02] MEDS: OMEPRAZOLE 20 MG CAP PO SCH (10:08)
[2020-04-02] MEDS: amLODIPine 10 MG TAB PO SCH (10:08)
[2020-04-02] MEDS: CLOPIDOGREL 75 MG TAB PO SCH (10:08)
[2020-04-02] MEDS: CARVedilol 12.5 MG TAB PO SCH ×2 (10:08→20:30)
[2020-04-02] MEDS: LEVEMIR (INSULIN DETEMIR) 1 UNITS/0.01ML SC SCH ×2 (10:10→20:29)
[2020-04-02] MEDS ORDERED: POTASSIUM CHLORIDE 10 MEQ SR TABLET PO ONE (11:00)
[2020-04-02 12:00] VITALS: BP 153/76
[2020-04-02] MEDS: traMADol 50 MG TAB PO PRN (12:40)
--- NOTE | 2020-04-02 13:27 | REP ---
INDICATION: hypertensive urgency. COMPARISON: Comparison sonography July 12, 2015. Comparison CT images March 17, 2017.. TECHNIQUE: Urinary tract sonography with renal artery flow Doppler study FINDINGS: Scanning at the level of the urinary bladder shows no abnormality. Renal cortical echogenicity pattern is normal bilaterally and contours are smooth. There is a 2.1 x 2.0 x 1.8 cm questionable hypoechoic area at the lower pole of the right kidney. This may be lobation versus a small mass. It does not appear to be a cyst. It was not visible previously. Exam quality in visualization are inhibited by abdominal bowel gas and patient body habitus. The right kidney measures 8.5 x 3.7 x 3.2 cm. The right kidney is somewhat atrophic. Left renal dimensions are 13.6 x 4.2 x 5.0 cm. Doppler flow study: Peak systolic flow velocity in the abdominal aorta at the level of the main renal arteries is normal measured at 158.8 centimeters/second. Exam quality was quite limited and renal artery flow velocity could only be measured in the renal hilar regions bilaterally. These values are 72 centimeters/second on the right and 104 centimeter/second on the left. Renal to aortic flow velocity ratios are therefore normal, 2.2 and 1.5 on the right and left respectively. Resistive indices and acceleration times are measured in the intralobar arteries of the upper mid and lower pole the left kidney in these values are unremarkable. The could not be measured in the upper and midpole of the right but are lower in the lower pole of the right kidney. IMPRESSION: Atrophic right kidney. Possible 2.1 cm mass lower pole right kidney. Recommend CT or MRI scanning, preferably including postcontrast imaging.. There is no renal artery Doppler evidence of renal artery stenosis. Exam was limited however.. <Electronically signed by Austin Joaquin > 04/02/20 [id number]
--- NOTE | 2020-04-02 14:36 | IPNPDOC ---
Text Note Date of Service The patient was seen on 04/02/20. NOTE Subjective: Mrs. Deleon is a 80-year-old female patient with past medical history of HTN, IDDM2, HDL, CAD s/p stenting and RCA, breast cancer s/p radiation, depression, takotsubo cardiomyopathy presented to the emergency department following a fall and having a laceration wound behind the head. In the ED she had reid for her laceration (laceration 1-1/2 inches), and was hypoxic and hypertensive with blood pressure of 201/101mm Hg. Patient seen at bed side denies having acute issues over night, She still reports to have headache and pain in neck from the fall. Denies having nausea, vomiting, chest pain, abdominal pain. Objective: General: Patient is awake, alert, oriented times three, laying in bed , no apparent distress. She has a left occipital laceration with 3 reid and mild tenderness in that region. Cardiovascular: S1, S2, normal rhythm, systolic murmur grade 2, or gallop. Respiratory: Chest is clear to auscultation bilaterally in the upper lobes, No rhonchi, wheezes or rubs. Abdomen: Soft, bowel sounds positive, no bruits. Nontender on palpation. Extremities: No clubbing or cyanosis. No edema ,no tenderness. Central nervous system (ENG[employer]): Awake, alert and fully oriented. Skin: No rashes, lesions, ulcerations. Imaging: Head CT without contrast: 04/01/2020, reported as mild generalized volume loss and vascular calcification. Mild small vessel atherosclerotic changes. No acute intracranial abnormality Cervical spinal CT without contrast: 04/01/2020, reported as degenerative disc disease at C5 - C6 and C6 - C7. Osteoarthritic facet disease in the mild cervical spine, most pronounced at C4-C5 and C5-C6. No traumatic abnormalities. Straightening. Thoracic spine: 04/01/2020, diffuse degenerative disc changes mild to low thoracic spine with a levorotatory curve lower thoracic/upper lumbar spine. Marginal osteophytes and disc space narrowing at all of these levels. No compression deformity or destructive lesion. Chest x-ray: 04/01/2020, cardiomegaly with vascular redistribution and interstitial edema superimposed on fibrosis. Bibasilar infiltrates left greater than right and suspected effusion also left greater than right. Tortuous calcified aorta and some degenerative changes in the spine. Renal ultrasound: 04/02/2020, reported as atrophic right kidney. Possible lead 2.1 cm mass lower pole right kidney. Recommend CT or MRI scanning, preferably including postcontrast imaging. There is no renal artery Doppler evidence of renal artery stenosis. Exam was limited however. Assessment: 80-year-old female patient with past medical history of hypertension, IDDM 2, HDL, CAD S/p stenting in RCA, breast cancer S/p radiation, depression, takotsubo cardiomyopathy presented to the emergency department after a fall and having injured her head. She had 3 reid placed in the ED for her laceration. In the ED she was hypertensive with a blood pressure max of 2 48 /1 10 mmHg. Plan: Mechanical fall secondary to polypharmacy: Head laceration with reid placed in the ED - Will continue to hold off bupropion, citalopram for now. History of diabetes may be diabetic neuropathy, patient is on Levemir and insulin sliding scale. - Will get PT and OT involved Hypertensive urgency: -She is on multiple blood pressure medication at home and reports to her blood pressure was always in 170s. She had an renal ultrasound done showing atrophic kidney and adrenal mass as well. As recommended by radiology will get an MRI with and without contrast for further evaluation. - Will continue labetalol 100 mg when necessary with holding parameters of more than 185mm Hg. - Will continue amlodipine 10 mg, spironolactone 25 mg, Coreg 25 mg. - Will continue furosemide 60 mg IV twice a day for today and will monitor her creatinine tomorrow and will try to decrease the dose if her creatinine is worse. - She reports to have pain in her head and neck from the fall will continue tramadol and Tylenol for now. - Patient had low potassium today 3.4 was given oral potassium. - Patient did get a urine analysis to rule out any protein loss in the urine. Negative for protein, blood. Syncope: -Unlikely as patient has no prodromal symptoms. - Troponins x3 negative. - Echo is ordered still waiting for it to be done and read. - Patient was on telemetry overnight and had no events overnight so will move her to [facility]. Hypoxia 2/ 2 CHF: -Patient was hypoxic in the emergency room. Her imaging showed infiltration, effusion in the lung. - After the patient was saturating at 96 and room air. -Echo was ordered. - Continue Lasix 60 mg for now - Strict I's and O's, daily weight checks, head of the bed and elevation, fluid restriction. Normocytic anemia: - And baseline hemoglobin was 11-12 -Her hemoglobin was 8.3 stable since the admission. - MCV is 80.8, Iron 25, TIBC 404, transferrin saturation 6.2, ferritin 11. - Her vitamin B12 and folate levels are normal. - Patient's UA was showing leukocyte esterases, WBC, no blood. But patient wasn't complaining of any symptoms so will hold off on starting any antibiotics for now. - Will get an FOBT done to rule out any GI bleeding. Diabetes mellitus type 2: - Continue sliding scale insulin - And is on 22 units of insulin at home, she is getting 10 units of Levemir and sliding scale now. -Continue monitor sugar levels GERD: - Continue omeprazole 40 mg by mouth Coronary artery disease s/p stenting: - Will continue Plavix 75 mg DVT prophylaxis - Lovenox 40 mg. Attending Note: Patient seen and examined independently. Agree with resident's note. VS,Stefany, I+O VS, Stefany, I+O Laboratory Tests 04/02/20 06:38 Vital Signs Date Time Temp Pulse Resp B/P (MAP) Pulse Ox O2 Delivery O2 Flow Rate FiO2 04/02/20 13:10 18 Nasal Cannula 2.0 04/02/20 12:00 97.5 56 153/76 (101) 97 I&O- Last 24 Hours up to 6 AM 04/02/20 06:00 Intake Total 100 ml Output Total 600 ml Balance -500 ml Juan J Pritchard MD Apr 02, 2020 14:36 MICHELE PARRA MD Apr 02, 2020 17:34
[2020-04-02] MEDS ORDERED: PROHANCE 279.3MG/ML 15ML VIAL As Ordered ONE (16:38)
[2020-04-02 17:30] VITALS: BP 154/82
--- NOTE | 2020-04-02 19:45 | REPVR ---
PROCEDURE INFORMATION: Exam: MR Abdomen Without and With Contrast Exam date and time: 04/02/2020 5:27 PM Age: 80 years old Clinical indication: Abnormal findings; Abnormal radiologic finding of the abdomen; Radiologic exam and body structure: Ct/us; Additional info: Atrophic RT kidney and mass in lower pole of RT kidney TECHNIQUE: Imaging protocol: MR of the abdomen without and with intravenous contrast. Contrast material: PROHANCE; Contrast volume: 8 ml; Contrast route: INTRAVENOUS (IV); COMPARISON: RENAL US 04/02/2020 9:18 AM FINDINGS: Liver: Visualized liver unremarkable. Gallbladder and bile ducts: There has been a cholecystectomy. No significant biliary ductal dilatation. Pancreas: Unremarkable. No significant ductal dilation. Spleen: Visualized spleen unremarkable. Adrenals: Unremarkable. No mass. Kidneys and ureters: Small bilateral simple renal cysts measure up to 5 mm in the left kidney. Mild right renal atrophy. 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 No abnormal enhancement. Left kidney unremarkable. Stomach and bowel: Visualized stomach and intestines are unremarkable. Intraperitoneal space: No free fluid. Arteries: No abdominal aortic aneurysm. Bones/joints: The spine demonstrates moderate degenerative changes. Soft tissues: Unremarkable. Other findings: Dextroscoliosis. IMPRESSION: 1. There has been a cholecystectomy. 2. Small bilateral simple renal cysts measure up to 5 mm in the left kidney. 3. Mild right renal atrophy. 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 COMMENTS: Consistent with the [employer]'s Incidental Findings Committee white paper (J Am Sean Radiol 2018): Any incidental renal lesion less than 1 cm or classified as too small to characterize, or any incidental cystic renal lesion characterized as simple-appearing, is likely benign. No follow-up imaging is recommended for these lesions per consensus recommendations based on imaging criteria. Electronically signed by: Vignesh He On 04/02/2020 19:45:43 PM
[2020-04-02 20:00] VITALS: BP 170/68
[2020-04-02] MEDS: LORazepam 1 MG TAB PO SCH (20:30)
[2020-04-03 04:00] VITALS: BP 138/65
[2020-04-03] MEDS: SLF 3 ML SYR IV SCH ×3 (06:18→21:08)
[2020-04-03 06:30] LABS: BASO % 0.7 % (0.0-1.0); EOS # 0.4 10^3/uL (0.0-0.5); EOS % 6.4 % (0.0-3.0); HEMATOCRIT 30.3 % (36.0-47.0); HEMOGLOBIN 8.6 g/dl (12.0-15.5); LYMPH # 1.3 10^3/uL (1.5-5.0); MEAN CORPUSCULAR HEMOGLOBIN 22.9 pg (27.0-33.0); MEAN CORPUSCULAR HGB CONC 28.4 g/dl (32.0-36.5); MEAN CORPUSCULAR VOLUME 80.8 fl (80.0-96.0); MONO # 0.6 10^3/uL (0.0-0.8); MONO % 9.6 % (0.0-5.0); NEUTROPHILS # 3.6 10^3/uL (1.5-8.5); PLATELET COUNT, AUTOMATED 288 10^3/uL (150-450); RED BLOOD COUNT 3.75 10^6/uL (4.00-5.40); WHITE BLOOD COUNT 5.9 10^3/uL (4.0-10.0)
[2020-04-03 06:56] LABS: CREATININE FOR GFR 1.17 MG/DL (0.55-1.30); GLOMERULAR FILTRATION RATE 47.6 (>39); MAGNESIUM LEVEL 1.8 MG/DL (1.8-2.4); POTASSIUM SERUM 3.7 MEQ/L (3.5-5.1)
[2020-04-03] MEDS: HumaLOG INSULIN (NovoLOG) PER UNIT SC SCH ×4 (07:30→21:00)
[2020-04-03 08:00] VITALS: BP 151/74
[2020-04-03] MEDS: FUROSEMIDE 100MG/10ML VIAL (J1940) IV SCH (08:41)
[2020-04-03] MEDS: LEVEMIR (INSULIN DETEMIR) 1 UNITS/0.01ML SC SCH ×2 (08:41→21:06)
[2020-04-03] MEDS: SPIRONOLACTONE 25 MG TAB PO SCH (08:43)
[2020-04-03] MEDS: OMEPRAZOLE 20 MG CAP PO SCH (08:49)
[2020-04-03] MEDS: ENOXAPARIN 40MG/0.4ML SYRINGE (J1650 PER 10MG) SC SCH (08:50)
[2020-04-03] MEDS: CLOPIDOGREL 75 MG TAB PO SCH (08:52)
[2020-04-03] MEDS: CARVedilol 12.5 MG TAB PO SCH ×2 (08:54→21:07)
[2020-04-03] MEDS: amLODIPine 10 MG TAB PO SCH (08:55)
--- NOTE | 2020-04-03 09:37 | ECHO ---
DATE OF PROCEDURE: 04/02/2020 Age: 80 Gender: Female Height: 165 cm Weight: 83 kg REFERRING PHYSICIAN: Juan J Pritchard MD INDICATION: Syncope. MEASUREMENTS: 2D Measurements: Interventricular septum 1.17 cm Posterior wall 1.07 cm Left ventricle diastole 5.85 cm Aortic root 3.1 cm Left atrium 5.0 cm Left atrial volume index at least 39 mmHg Doppler Measurements: No aortic regurgitation No aortic stenosis Aortic valve velocity 139 cm/s LVOT velocity 86.7 cm/s LVOT VTI 24.0 cm Very mild mitral regurgitation No mitral stenosis Mitral E velocity 4.2 cm/s Mitral A velocity 48.1 cm/s Mitral deceleration time 211 m/s No tricuspid regurgitation Very mild pulmonic regurgitation Pulmonary artery acceleration time 74 mmHg suggestive of moderate elevation of pulmonary artery systolic pressure. MITRAL ANNULAR TISSUE DOPPLER E prime septal 5.4 cm/s, E prime lateral 9.4 cm/s DESCRIPTION: Rhythm was sinus with first-degree AV block and a wide predominantly monomorphic QRS complex suggestive of left bundle branch block (LBBB). Image quality was adequate. This was a 2D, M-mode, color flow Doppler, and pulsed wave Doppler examination including mitral annular tissue Doppler. No pericardial effusion. CONCLUSIONS: 1. Mildly dilated left ventricle with normal left ventricular (LV) wall thickness. No regional left ventricular (LV) wall motion abnormalities. Normal left ventricle systolic function. Left ventricular ejection fraction (LVEF) of 60% by visual estimate. Grade 2 left ventricular (LV) diastolic dysfunction (pseudonormal LV diastolic filling pattern). 2. Severe left atrial dilatation. 3. Mild aortic valve sclerosis with a 3-cuspid aortic valve. No aortic regurgitation. 4. Moderate mitral annular calcification. Very mild mitral regurgitation. No mitral stenosis. 5. Suggestive of moderate elevation of pulmonary artery systolic pressure. No right ventricular size and systolic function. [facility]
[2020-04-03 12:00] VITALS: BP 148/81
[2020-04-03 16:00] VITALS: BP 159/83
[2020-04-03] MEDS ORDERED: FUROSEMIDE 100MG/10ML VIAL (J1940) IV ONE (17:00)
--- NOTE | 2020-04-03 17:56 | IPNPDOC ---
Text Note Date of Service The patient was seen on 04/03/20. NOTE Mrs. Deleon is a 80-year-old female patient with past medical history of HTN, IDDM2, HDL, CAD s/p stenting and RCA, breast cancer s/p radiation, depression, takotsubo cardiomyopathy presented to the emergency department following a fall and having a laceration wound behind the head. In the ED she had reid for her laceration (laceration 1-1/2 inches), and was hypoxic and hypertensive with blood pressure of 201/101mm Hg. Subjective: Patient seen on bedside, denies having any acute issues overnight, she reports having mild headache better than yesterday. Still reports having neck pain from the fall. She denies having any nausea, vomiting, chest pain, abdominal pain. Objective: General: Patient is awake, alert, oriented times three, sitting in bed, no apparent distress. She has a left occipital laceration with 3 reid and mild tenderness in that region. Cardiovascular: S1, S2, normal rhythm, systolic murmur grade 2, or gallop. Respiratory: Chest is clear to auscultation bilaterally in the upper lobes, mild crackles in the lower lobes. No rhonchi, wheezes or rubs. Abdomen: Soft, bowel sounds positive, no bruits. Nontender on palpation. Extremities: No clubbing or cyanosis. No edema ,no tenderness. Central nervous system (JACKET PREPARER): Awake, alert and fully oriented. Skin: No rashes, lesions, ulcerations. Imaging: Head CT without contrast: 04/01/2020, reported as mild generalized volume loss and vascular calcification. Mild small vessel atherosclerotic changes. No acute intracranial abnormality Cervical spinal CT without contrast: 04/01/2020, reported as degenerative disc disease at C5 - C6 and C6 - C7. Osteoarthritic facet disease in the mild cervical spine, most pronounced at C4-C5 and C5-C6. No traumatic abnormalities. Straightening. Thoracic spine: 04/01/2020, diffuse degenerative disc changes mild to low thoracic spine with a levorotatory curve lower thoracic/upper lumbar spine. Marginal osteophytes and disc space narrowing at all of these levels. No compression deformity or destructive lesion. Chest x-ray: 04/01/2020, cardiomegaly with vascular redistribution and interstitial edema superimposed on fibrosis. Bibasilar infiltrates left greater than right and suspected effusion also left greater than right. Tortuous calcified aorta and some degenerative changes in the spine. Renal ultrasound: 04/02/2020, reported as atrophic right kidney. Possible lead 2.1 cm mass lower pole right kidney. Recommend CT or MRI scanning, preferably including postcontrast imaging. There is no renal artery Doppler evidence of renal artery stenosis. Exam was limited however. Echocardiogram :1. Mildly dilated left ventricle with normal left ventricular (LV) wall thickness. No regional left ventricular (LV) wall motion abnormalities. Normal left ventricle systolic function. Left ventricular ejection fraction (LVEF) of 60% by visual estimate. Grade 2 left ventricular (LV) diastolic dysfunction (pseudonormal LV diastolic filling pattern). 2. Severe left atrial dilatation.3. Mild aortic valve sclerosis with a 3-cuspid aortic valve. No aortic regurgitation.4. Moderate mitral annular calcification. Very mild mitral regurgitation. No mitral stenosis. 5. Suggestive of moderate elevation of pulmonary artery systolic pressure. No right ventricular size and systolic function. Assessment: 80-year-old female patient with past medical history of hypertension, IDDM 2, HDL, CAD S/p stenting in RCA, breast cancer S/p radiation, depression, takotsubo cardiomyopathy presented to the emergency department after a fall and having injured her head. She had 3 reid placed in the ED for her laceration. In the ED she was hypertensive with a blood pressure max of 2 48 /1 10 mmHg. Plan: Mechanical fall secondary to polypharmacy: - Patient had an head injury with a laceration on her back of head and had it stapled in the ED. - Will continue to hold bupropion, citalopram for now. - And his history of diabetes may be diabetic neuropathy, patient is on Levemir and insulin sliding scale in the hospital. - Patient was still having some neck pain we'll give her heating pad to help relieve her pain, she is already on tramadol and Tylenol. Deconditioning: - Patient did PT yesterday and reports she drop to lower 80s in saturation while on stairs, but had no symptoms. And was back in the 90s with 2 L of oxygen. - Patient was not on any oxygen at home. - Will try to wean her off oxygen today, and we will encourage incentive spirometry. Hypertensive urgency: -She is on multiple blood pressure medication at home and reports to her blood pressure was always in 170s. She had an renal ultrasound done showing atrophic kidney and adrenal mass as well. As recommended by radiology will get an MRI with and without contrast for further evaluation. - Will continue labetalol 100 mg when necessary with holding parameters of more than 185mm Hg. - Will continue amlodipine 10 mg, spironolactone 25 mg, Coreg 25 mg. -Patient was getting 60 mg of furosemide twice a day until today morning and her creatinine level looks better than yesterday. Will increase her dose to 80 mg one dose at night as patient was dropping saturation on exertion. We will get a repeat chest x-ray in the a.m. Acute on chronic CHF exacerbation: - After the patient was saturating at 96 and room air. - Echo was back reported as above. - Patient was participating in PT did drop to lower 80s in saturation, and was put on 2 L of oxygen and her saturation went back and 90s. Patient was not symptomatic during this episode. Continue to wean her off her oxygen today. - Will increase her dose of lasix to 80mg, will a repeat CXray in AM - Strict I's and O's, daily weight checks, head of the bed and elevation, fluid restriction. Normocytic anemia: - And baseline hemoglobin was 11-12 -Her hemoglobin was 8.3 stable since the admission. - MCV is 80.8, Iron 25, TIBC 404, transferrin saturation 6.2, ferritin 11. - will start her on oral iron Wednesday, Wednesday and Wednesday. - Her vitamin B12 and folate levels are normal. - Patient's UA was showing leukocyte esterases, WBC, no blood. But patient wasn't complaining of any symptoms so will hold off on starting any antibiotics for now. - FOBT is ordered. Diabetes mellitus type 2: - Continue sliding scale insulin - And is on 22 units of insulin at home, she is getting 10 units of Levemir and sliding scale now. -Continue monitor sugar levels GERD: - Continue omeprazole 40 mg by mouth Coronary artery disease s/p stenting: - Will continue Plavix 75 mg DVT prophylaxis - Lovenox 40 mg. Disposition: If PT clears her tomorrow and she does better overnight with plan for discharge tomorrow. VS,Fishbone, I+O VS, Fishbone, I+O Laboratory Tests 04/03/20 06:03 Vital Signs Date Time Temp Pulse Resp B/P (MAP) Pulse Ox O2 Delivery O2 Flow Rate FiO2 04/03/20 16:00 2.0 04/03/20 16:00 97.3 54 18 159/83 (108) 94 Nasal Cannula I&O- Last 24 Hours up to 6 AM 04/03/20 06:00 Intake Total 960 ml Output Total 2100 ml Balance -1140 ml Juan J Pritchard MD Apr 03, 2020 17:56
[2020-04-03 19:22] VITALS: BP 149/67
[2020-04-03] MEDS: LORazepam 1 MG TAB PO SCH (21:06)
[2020-04-04 04:00] VITALS: BP 159/71
[2020-04-04] MEDS: SLF 3 ML SYR IV SCH ×3 (05:47→20:21)
[2020-04-04 05:58] LABS: BASO # 0.1 10^3/uL (0.0-0.2); BASO % 0.8 % (0.0-1.0); EOS # 0.3 10^3/uL (0.0-0.5); EOS % 5.2 % (0.0-3.0); HEMATOCRIT 31.1 % (36.0-47.0); HEMOGLOBIN 9.1 g/dl (12.0-15.5); LYMPH # 1.6 10^3/uL (1.5-5.0); LYMPH % 24.6 % (24.0-44.0); MEAN CORPUSCULAR HEMOGLOBIN 23.7 pg (27.0-33.0); MEAN CORPUSCULAR HGB CONC 29.3 g/dl (32.0-36.5); MONO # 0.6 10^3/uL (0.0-0.8); MONO % 9.9 % (0.0-5.0); NEUTROPHILS # 3.7 10^3/uL (1.5-8.5); NEUTROPHILS % 59.2 % (36.0-66.0); PLATELET COUNT, AUTOMATED 299 10^3/uL (150-450); RED BLOOD COUNT 3.84 10^6/uL (4.00-5.40); WHITE BLOOD COUNT 6.3 10^3/uL (4.0-10.0)
[2020-04-04 06:20] LABS: CALCIUM LEVEL 9.3 MG/DL (8.8-10.2); CREATININE FOR GFR 1.23 MG/DL (0.55-1.30); MAGNESIUM LEVEL 1.7 MG/DL (1.8-2.4); POTASSIUM SERUM 3.3 MEQ/L (3.5-5.1)
[2020-04-04] MEDS ORDERED: MAG SULF 1GM/100ML (MAG RUN) 1 GM in IV 1 EA IV ONE (06:30)
[2020-04-04] MEDS: POTASSIUM CHLORIDE 10% LIQ 20 MEQ/15 ML UDC PO SCH ×2 (06:57→09:53)
--- NOTE | 2020-04-04 06:57 | REP ---
INDICATION: Looking for fluid overload/comparison to prior. COMPARISON: 04/01/2020 TECHNIQUE: Portable AP view of the chest FINDINGS: Stable cardiomegaly is again suggested. The lung luna demonstrate decreased pulmonary vascular congestion and interstitial edema as compared to prior examination. No obvious focal consolidation. A small right pleural effusion cannot be excluded. No pneumothorax. IMPRESSION: Findings suggest improved aeration and decreased fluid overload as compared to prior examination. Possible small residual right pleural effusion versus chronic pleural reaction. <Electronically signed by Vivek Gaona > 04/04/20 [id number]
[2020-04-04] MEDS: HumaLOG INSULIN (NovoLOG) PER UNIT SC SCH ×4 (07:30→19:49)
[2020-04-04] MEDS ORDERED: SODIUM CHLORIDE NASAL 0.65% SPRAY BTL (OCEAN) PRN (08:45)
[2020-04-04] MEDS: SPIRONOLACTONE 25 MG TAB PO SCH (09:54)
[2020-04-04] MEDS: CLOPIDOGREL 75 MG TAB PO SCH (09:54)
[2020-04-04] MEDS: OMEPRAZOLE 20 MG CAP PO SCH (09:54)
[2020-04-04] MEDS: amLODIPine 10 MG TAB PO SCH (09:55)
[2020-04-04] MEDS: CARVedilol 12.5 MG TAB PO SCH ×2 (09:56→20:19)
[2020-04-04] MEDS: LEVEMIR (INSULIN DETEMIR) 1 UNITS/0.01ML SC SCH ×2 (09:56→20:20)
[2020-04-04] MEDS: ENOXAPARIN 40MG/0.4ML SYRINGE (J1650 PER 10MG) SC SCH (09:57)
[2020-04-04] MEDS: FUROSEMIDE 100MG/10ML VIAL (J1940) IV SCH ×2 (09:57→18:23)
--- NOTE | 2020-04-04 10:45 | IPNPDOC ---
Text Note Date of Service The patient was seen on 04/04/20. NOTE Mrs. Deleon is a 80-year-old female patient with past medical history of HTN, IDDM2, HDL, CAD s/p stenting and RCA, breast cancer s/p radiation, depression, takotsubo cardiomyopathy presented to the emergency department following a fall and having a laceration wound behind the head. In the ED she had reid for her laceration (laceration 1-1/2 inches), and was hypoxic and hypertensive with blood pressure of 201/101mm Hg. Subjective: Patient seen on bedside, she denies having any acute issues overnight, she reports her neck pain is better but still having mild pain, And her headache resolved. She reports to have sneezes yesterday night and says it is most likely because of her allergies, and pulled her muscle in the left hip. Objective: General: Patient is awake, alert, oriented times three, laying in bed, no apparent distress. She has a left occipital laceration with 3 reid and mild tenderness in that region. Cardiovascular: S1, S2, normal rhythm, systolic murmur grade 2, or gallop. Respiratory: Chest is clear to auscultation bilaterally in the upper lobes, mild crackles in the lower lobes. No rhonchi, wheezes or rubs. Abdomen: Soft, bowel sounds positive, no bruits. Nontender on palpation. Extremities: No clubbing or cyanosis. No edema ,no tenderness. Central nervous system (HOT DOG VENDOR): Awake, alert and fully oriented. Skin: No rashes, lesions, ulcerations. Imaging: Head CT without contrast: 04/01/2020, reported as mild generalized volume loss and vascular calcification. Mild small vessel atherosclerotic changes. No acute intracranial abnormality Cervical spinal CT without contrast: 04/01/2020, reported as degenerative disc disease at C5 - C6 and C6 - C7. Osteoarthritic facet disease in the mild cervical spine, most pronounced at C4-C5 and C5-C6. No traumatic abnormalities. Straightening. Thoracic spine: 04/01/2020, diffuse degenerative disc changes mild to low thoracic spine with a levorotatory curve lower thoracic/upper lumbar spine. Marginal osteophytes and disc space narrowing at all of these levels. No compression deformity or destructive lesion. Chest x-ray: 04/01/2020, cardiomegaly with vascular redistribution and interstitial edema superimposed on fibrosis. Bibasilar infiltrates left greater than right and suspected effusion also left greater than right. Tortuous calcified aorta and some degenerative changes in the spine. Renal ultrasound: 04/02/2020, reported as atrophic right kidney. Possible lead 2.1 cm mass lower pole right kidney. Recommend CT or MRI scanning, preferably including postcontrast imaging. There is no renal artery Doppler evidence of renal artery stenosis. Exam was limited however. Echocardiogram :1. Mildly dilated left ventricle with normal left ventricular ( LV) wall thickness. No regional left ventricular (LV) wall motion abnormalities. Normal left ventricle systolic function. Left ventricular ejection fraction (LVEF) of 60% by visual estimate. Grade 2 left ventricular (LV) diastolic dysfunction (pseudonormal LV diastolic filling pattern). 2. Severe left atrial dilatation.3. Mild aortic valve sclerosis with a 3-cuspid aortic valve. No aortic regurgitation.4. Moderate mitral annular calcification. Very mild mitral regurgitation. No mitral stenosis. 5. Suggestive of moderate elevation of pulmonary artery systolic pressure. No right ventricular size and systolic function. Chest x-ray: 04/04/2020, reported as finding suggests improved aeration and decreased fluid overload as compared to prior examination. Possible small residual right pleural effusion versus chronic pleural reaction. Assessment: 80-year-old female patient with past medical history of hypertension, IDDM 2, HDL, CAD S/p stenting in RCA, breast cancer S/p radiation, depression, takotsubo cardiomyopathy presented to the emergency department after a fall and having injured her head. She had 3 reid placed in the ED for her laceration. In the ED she was hypertensive with a blood pressure max of 2 48 /1 10 mmHg. Plan: Mechanical fall: -Patient and has a laceration in her back which was stapled in the ED. - History of diabetes may be diabetic neuropathy, patient is on Levemir and insulin sliding scale. - Patient reports her neck pain has improved since yesterday but still has mild pain, most likely as she is sleeping with her head to the side because of the injury in the back of the head. Deconditioning: - Patient is still on 1 L oxygen at rest, she was brought into 80s when she gets up to use the restroom but not symptomatic. - PT will try to work with her today, and will try to wean her off supplemental oxygen. - Encourage patient to do incentive spirometry. Hypertensive urgency: - Will continue labetalol 100 mg when necessary with holding parameters of more than 180 mm Hg, patient last got labetalol on - Will continue amlodipine 10 mg, spironolactone 25 mg, Coreg 25 mg. - Will continue her on 80 mg of Lasix twice a day. - Her repeat chest x-ray today morning showed improved aeration and decreased fluid overload as compared to the prior examination. Possible small residual right pleural effusion versus chronic pleural reaction. Acute on chronic diastolic CHF exacerbation: - Patient's initial BNP was 6186, repeat BMP done today 2383. Trending down. - Clinically patient is improving. - Patient is having episodes of hypoxia saturation dropped to 80s with activity. Her resting saturations are the 90s on 2 L of oxygen, will try to wean her off supplemental oxygen as patient is not on oxygen at home. If she is not able to tolerate it then might need to discharge patient on oxygen. - Her repeat chest x-ray showed improved aeration and decreased fluid overload. - Continue patient on 80 mg of Lasix twice daily. Her Dose of Lasix was incr eased yesterday evening prior to that she was on 60 mg twice a day. - Monitor her BUN and creatinine. Hypokalemia, hypomagnesemia: - Patient had low potassium of 3.3 today morning and was given 20 mEq of oral potassium twice. Patient's magnesium was low this morning 1.7 and was given 1 mag run. Normocytic anemia: - And baseline hemoglobin was 11-12 -Her hemoglobin was 9.1 this morning. - MCV is 80.8, Iron 25, TIBC 404, transferrin saturation 6.2, ferritin 11. - Will continue oral iron Wednesday, Wednesday and Wednesday. - Her vitamin B12 and folate levels are normal. - Patient's UA was showing leukocyte esterases, WBC, no blood. But patient wasn't complaining of any symptoms so will hold off on starting any antibiotics for now. - FOBT is ordered. Diabetes mellitus type 2: - Continue sliding scale insulin - And is on 22 units of insulin at home, she is getting 10 units of Levemir and sliding scale now. -Continue monitor sugar levels GERD: - Continue omeprazole 40 mg by mouth Coronary artery disease s/p stenting: - Will continue Plavix 75 mg DVT prophylaxis - Lovenox 40 mg. Disposition: Patient is on 1 L of oxygen at rest, prior to coming into the hospital she was not on any oxygen at home. PT will work with her and see if she can tolerate activity without requirement of oxygen. If not she might require oxygen on discharge. We will try to wean her off of oxygen supplementation during rest. With plan for discharge tomorrow. Attending Note: Patient seen and examined independently. Agree with resident's note. VS,Fishbone, I+O VS, Fishbone, I+O Laboratory Tests 04/04/20 05:41 Vital Signs Date Time Temp Pulse Resp B/P (MAP) Pulse Ox O2 Delivery O2 Flow Rate FiO2 04/04/20 09:56 62 159/71 04/04/20 04:00 97.5 18 94 Nasal Cannula 2.0 I&O- Last 24 Hours up to 6 AM 04/04/20 05:59 Intake Total 990 ml Output Total 600 ml Balance 390 ml Juan J Pritchard MD Apr 04, 2020 10:18 MICHELE PARRA MD Apr 07, 2020 06:51
[2020-04-04] MEDS: traMADol 50 MG TAB PO PRN (11:05)
[2020-04-04 12:00] VITALS: BP 160/70
[2020-04-04 16:00] VITALS: BP 150/68
[2020-04-04] MEDS ORDERED: IBUPROFEN 400 MG TAB PO ONE (16:15)
[2020-04-04 20:00] VITALS: BP 142/65
[2020-04-04] MEDS: LORazepam 1 MG TAB PO SCH (20:19)
[2020-04-05 04:00] VITALS: BP 154/72
[2020-04-05] MEDS: SLF 3 ML SYR IV SCH (05:35)
[2020-04-05 06:08] LABS: BASO # 0.1 10^3/uL (0.0-0.2); EOS # 0.3 10^3/uL (0.0-0.5); EOS % 4.4 % (0.0-3.0); HEMOGLOBIN 9.1 g/dl (12.0-15.5); LYMPH # 1.6 10^3/uL (1.5-5.0); LYMPH % 25.9 % (24.0-44.0); MEAN CORPUSCULAR HEMOGLOBIN 23.4 pg (27.0-33.0); MEAN CORPUSCULAR HGB CONC 29.4 g/dl (32.0-36.5); MEAN CORPUSCULAR VOLUME 79.7 fl (80.0-96.0); MONO # 0.7 10^3/uL (0.0-0.8); MONO % 10.9 % (0.0-5.0); NEUTROPHILS # 3.5 10^3/uL (1.5-8.5); NEUTROPHILS % 57.5 % (36.0-66.0); PLATELET COUNT, AUTOMATED 289 10^3/uL (150-450); RED BLOOD COUNT 3.89 10^6/uL (4.00-5.40); WHITE BLOOD COUNT 6.1 10^3/uL (4.0-10.0)
[2020-04-05 06:39] LABS: CALCIUM LEVEL 9.4 MG/DL (8.8-10.2); CREATININE FOR GFR 1.41 MG/DL (0.55-1.30); GLOMERULAR FILTRATION RATE 38.4 (>39); MAGNESIUM LEVEL 1.9 MG/DL (1.8-2.4); POTASSIUM SERUM 3.5 MEQ/L (3.5-5.1)
[2020-04-05] MEDS: HumaLOG INSULIN (NovoLOG) PER UNIT SC SCH ×2 (07:30→12:00)
[2020-04-05 08:00] VITALS: BP 142/66
[2020-04-05] MEDS ORDERED: FERROUS GLUCONATE 324 MG TAB PO SCH (09:00)
[2020-04-05] MEDS: LEVEMIR (INSULIN DETEMIR) 1 UNITS/0.01ML SC SCH (09:43)
[2020-04-05 09:44] VITALS: BP 142/66
[2020-04-05] MEDS: ENOXAPARIN 40MG/0.4ML SYRINGE (J1650 PER 10MG) SC SCH (09:44)
[2020-04-05] MEDS: OMEPRAZOLE 20 MG CAP PO SCH (09:44)
[2020-04-05] MEDS: CARVedilol 12.5 MG TAB PO SCH (09:44)
[2020-04-05] MEDS: amLODIPine 10 MG TAB PO SCH (09:45)
[2020-04-05] MEDS: CLOPIDOGREL 75 MG TAB PO SCH (09:45)
[2020-04-05] MEDS ORDERED: TORS20TA2 PO ×2 (10:33→11:30)
[2020-04-05 12:00] VITALS: BP 144/90
--- NOTE | 2020-04-05 19:17 | DS.PDOC ---
Discharge Summary General Date of Admission Apr 01, 2020 at 12:18 Date of Discharge 2019 Primary Care Physician: Padmini Alicia Attending Physician: MICHELE PARRA MD Discharge Summary PROCEDURES PERFORMED DURING STAY: None. ADMITTING DIAGNOSES: Mechanical fall 2/2 polypharmacy Hypertensive urgency Acute on chronic diastolic CHF exacerbation Hypertension Diabetes mellitus Hyperlipidemia Coronary artery disease Osteoarthritis GERD Chronic back pain DISCHARGE DIAGNOSES: Hypertension Diabetes mellitus Hyperlipidemia Coronary artery disease Osteoarthritis GERD Chronic back pain COMPLICATIONS/CHIEF COMPLAINT: Congestive Heart Failure,Hypertensive Urgency. HISTORY OF PRESENT ILLNESS: 80-year-old female patient presented to the emergency department after having a fall at home. She reports to have lost her balance and fell and hit her head to the wooden footboard of the bed and had a laceration wound behind her head in occipital region . She denies having any dizziness, loss of consciousness, nausea, incontinence of bowel or bladder, se izure like activity with the fall. He reports to have headache after the fall, and neck pain 9/10 in intensity, dull in character, no radiation and no aggravating or relieving factors. He reports to have shortness of breath since months more so with emotional/sad and not with exertion. Patient states she has nonproductive cough since 6-8 months due to postnasal drip. HOSPITAL COURSE: On further evaluation in the ED she was having hypertensive urgency, and a complete workup was done for her syncope and hypertensive urgency including the renal ultrasound, echo further details regarding the imaging are included below. She was having elevated BNP and was in acute on chronic CHF exacerbation and was given Lasix with gradual increasing doses, improved gradually. Hypertensive urgency was controlled with labetalol, amlodipine, spironolactone, Coreg and Lasix. DISCHARGE MEDICATIONS: Please see below. ALLERGIES: Please see below. PHYSICAL EXAMINATION ON DISCHARGE: VITAL SIGNS: Please see below. General: Patient is awake, alert, oriented times three, laying in bed, no apparent distress. She has a left occipital laceration with 3 reid and mild tenderness in that region. Cardiovascular: S1, S2, normal rhythm, systolic murmur grade 2, or gallop. Respiratory: Chest is clear to auscultation bilaterally in the upper lobes, mild crackles in the lower lobes. No rhonchi, wheezes or rubs. Abdomen: Soft, bowel sounds positive, no bruits. Nontender on palpation. Extremities: No clubbing or cyanosis. No edema ,no tenderness. 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 Skin: No rashes, lesions, ulcerations. LABORATORY DATA: Please see below. Imaging: Head CT without contrast: 04/01/2020, reported as mild generalized volume loss and vascular calcification. Mild small vessel atherosclerotic changes. No acute intracranial abnormality Cervical spinal CT without contrast: 04/01/2020, reported as degenerative disc disease at C5 - C6 and C6 - C7. Osteoarthritic facet disease in the mild cervical spine, most pronounced at C4-C5 and C5-C6. No traumatic abnormalities. Straightening. Thoracic spine: 04/01/2020, diffuse degenerative disc changes mild to low thor acic spine with a levorotatory curve lower thoracic/upper lumbar spine. Marginal osteophytes and disc space narrowing at all of these levels. No compression deformity or destructive lesion. Chest x-ray: 04/01/2020, cardiomegaly with vascular redistribution and interstitial edema superimposed on fibrosis. Bibasilar infiltrates left greater than right and suspected effusion also left greater than right. Tortuous calcified aorta and some degenerative changes in the spine. Renal ultrasound: 04/02/2020, reported as atrophic right kidney. Possible lead 2.1 cm mass lower pole right kidney. Recommend CT or MRI scanning, preferably including postcontrast imaging. There is no renal artery Doppler evidence of renal artery stenosis. Exam was limited however. Echocardiogram :1. Mildly dilated left ventricle with normal left ventricular (LV) wall thickness. No regional left ventricular (LV) wall motion abnormalities. Normal left ventricle systolic function. Left ventricular ejection fraction (LVEF) of 60% by visual estimate. Grade 2 left ventricular (LV) diastolic dysfunction (pseudonormal LV diastolic filling pattern). 2. Severe left atrial dilatation.3. Mild aortic valve sclerosis with a 3-cuspid aortic valve. No aortic regurgitation.4. Moderate mitral annular calcification. Very mild mitral regurgitation. No mitral stenosis. 5. Suggestive of moderate elevation of pulmonary artery systolic pressure. No right ventricular size and systolic function. Chest x-ray: 04/04/2020, reported as finding suggests improved aeration and decreased fluid overload as compared to prior examination. Possible small residual right pleural effusion versus chronic pleural reaction. PROGNOSIS: Good ACTIVITY: As tolerated. DIET: 2 g sodium, diabetic diet DISCHARGE PLAN: To discharge home. On follow-up with PCP in 3-5 days DISPOSITION: 01 Home, Self-Care. DISCHARGE INSTRUCTIONS: 1. Follow with PCP in 3-5 days. 2. Patient had 3 reid for scalp laceration. She can wash her hair on 04/08/20 or later and completely pad dry it. She needs to make an appointment with PCP to get those reid removed on or after 04/12/2020. ITEMS TO FOLLOWUP ON ON OUTPATIENT: 1. Follow with your PCP in 3-5 days. 2. Discharged on 60 MG by mouth twice a day of torsemide, she was initially on 50 MG torsemide twice a day 3. Patient is on higher bupropion for 4 50 MG daily, reevaluate and consider decreasing the dosage if possible. DISCHARGE CONDITION: Stable. TIME SPENT ON DISCHARGE: 35 minutes. Attending Note: Patient seen and examined independently. Agree with resident's note. Vital Signs/I&Os Vital Signs Date Time Temp Pulse Resp B/P (MAP) Pulse Ox O2 Delivery O2 Flow Rate FiO2 04/05/20 12:00 96.9 58 16 144/90 (108) 95 Room Air 04/04/20 04:00 2.0 I&O- Last 24 Hours up to 6 AM 04/05/20 06:00 Intake Total 1140 ml Output Total 1225 ml Balance -85 ml Laboratory Data Labs 24H Laboratory Tests 2 04/04/20 19:23: Bedside Glucose (Misc Panel) 202H 04/05/20 05:37: Immature Granulocyte % (Auto) 0.3, Neutrophils (%) (Auto) 57.5, Lymphocytes (%) (Auto) 25.9, Monocytes (%) (Auto) 10.9H, Eosinophils (%) (Auto) 4.4H, Basophils (%) (Auto) 1.0, Neutrophils # (Auto) 3.5, Lymphocytes # (Auto) 1.6, Monocytes # (Auto) 0.7, Eosinophils # (Auto) 0.3, Basophils # (Auto) 0.1, Nucleated Red Blood Cells % (auto) 0.0, Anion Gap 6L, Glomerular Filtration Rate 38.4L, Calcium Level 9.4, Magnesium Level 1.9 04/05/20 08:15: Bedside Glucose (Misc Panel) 85 04/05/20 12:43: Bedside Glucose (Misc Panel) 137H CBC/BMP Laboratory Tests 04/05/20 05:37 FSBS Laboratory Tests Test 04/04/20 19:23 04/05/20 08:15 04/05/20 12:43 Range/Units Bedside Glucose (Misc Panel) 202 85 137 83-110 MG/DL Microbiology Microbiology 04/04/20 Stool Occult Blood (CELESTE) - Final, Complete 04/01/20 Urine Culture - Final, Complete 04/01/20 Respiratory Virus Panel (PCR) (CELESTE) - Final, Complete Discharge Medications Scheduled Amlodipine Besylate (Amlodipine Besylate) 10 Mg Tablet, 10 MG PO DAILY, (Reported) LAST FILLED 09/24/19 X 90 DAYS - PATIENT STATES TAKING AND ON LAST DR VISIT IN AUGUST Bupropion HCl (Bupropion Xl) 300 Mg Tab, 300 MG PO DAILY, (Reported) 450MG TOTAL DAILY Bupropion Hcl (Bupropion Xl) 150 Mg Tab, 150 MG PO DAILY, (Reported) 450MG TOTAL DAILY Carvedilol (Carvedilol) 25 Mg Tablet, 25 MG PO BID, (Reported) Clopidogrel Bisulfate (Clopidogrel) 75 Mg Tab, 75 MG PO DAILY, (Reported) Insulin Glargine (Lantus) 1 Units/0.01 Ml Susp, 22 UNITS SC QHS, (Reported) Insulin Human Lispro (Novolog) 100 U/Ml Inj, 1 DOSE SC AC, (Reported) PER SLIDING SCALE Lorazepam (Ativan) 1 Mg Tab, 1 MG PO QHS, (Reported) Omeprazole (Omeprazole) 40 Mg Cap, 40 MG PO DAILY, (Reported) Sertraline HCl (Sertraline HCl) 50 Mg Tablet, 50 MG PO DAILY, (Reported) Spironolactone (Spironolactone) 25 Mg Tab, 25 MG PO DAILY, (Reported) LAST FILLED 03/2019 X 90 DAYS- PATIENT STATES TAKING AND ON MD VISIT IN AUGUST 2019 Torsemide (Torsemide) 20 Mg Tablet, 60 MG PO BID Scheduled PRN Nitroglycerin (Nitrostat) 0.4 Mg Subl, 0.4 MG SL NITRO PRN for CHEST PAIN, (Reported) Allergies Coded Allergies: glimepiride (Verified Allergy, Intermediate, 04/01/20) strawberry (Verified Allergy, Mild, SORES IN MOUTH, 04/01/20) blue dye (Verified Allergy, Unknown, 04/01/20) pregabalin (Verified Allergy, Unknown, 04/01/20) amoxicillin (Verified Adverse Reaction, Intermediate, VOMITING, 04/01/20) clavulanic acid (Verified Adverse Reaction, Intermediate, VOMITING, 04/01/20) codeine (Verified Adverse Reaction, Intermediate, NAUSEA, 04/01/20) duloxetine (Verified Adverse Reaction, Intermediate, INSOMNIA, 04/01/20) gabapentin (Verified Adverse Reaction, Intermediate, CONFUSION, 04/01/20) trazodone (Verified Adverse Reaction, Intermediate, CONFUSION, 04/01/20) Sigfyxt-Bnb-Yaf Reductase Inhibitor (Verified Adverse Reaction, Mild, LEG CRAMPS, 04/01/20) phenol (Verified Adverse Reaction, Mild, "FEELS WEIRD", 04/01/20) exenatide (Verified Adverse Reaction, Unknown, ITCHINESS, 04/01/20) Juan J Pritchard MD Apr 05, 2020 19:17 MICHELE PARRA MD Apr 07, 2020 07:08
== END 2020-04-05 13:50 | disposition home or self-care (01) | DRG 304 ==
LOC: M ED 07:38 → EDBD 07:38 → M ED INP 12:18 → ENRESERV 15:15 → M PCU 16:26
PROVIDERS: ADMIT Internal Medicine; ATTEND Internal Medicine
DX: I16.0 Hypertensive urgency (principal); I50.33 Acute on chronic diastolic (congestive) heart failure; J96.91 Respiratory failure, unspecified with hypoxia; R55 Syncope and collapse; I11.0 Hypertensive heart disease with heart failure; S01.91XA Laceration without foreign body of unspecified part of head, initial encounter; E11.9 Type 2 diabetes mellitus without complications; K21.9 Gastro-esophageal reflux disease without esophagitis; E78.5 Hyperlipidemia, unspecified; I25.10 Atherosclerotic heart disease of native coronary artery without angina pectoris; M19.90 Unspecified osteoarthritis, unspecified site; M54.5 Low back pain; Z79.4 Long term (current) use of insulin; Z79.899 Other long term (current) drug therapy; Z88.8 Allergy status to other drugs, medicaments and biological substances; Z91.018 Allergy to other foods; Z88.0 Allergy status to penicillin; Z85.3 Personal history of malignant neoplasm of breast; Z92.3 Personal history of irradiation; W18.30XA Fall on same level, unspecified, initial encounter; Y92.009 Unspecified place in unspecified non-institutional (private) residence as the place of occurrence of the external cause; Z95.2 Presence of prosthetic heart valve; Z88.5 Allergy status to narcotic agent; D64.9 Anemia, unspecified; E87.6 Hypokalemia; E83.42 Hypomagnesemia

== ENCOUNTER → 2020-04-24 | Outpatient (REF) | payer MEDICARE ==
[~2020-04-24] MED LIST changes: +CARV25TA PO; +SERT50TA29 PO; +TORS100T PO; +TORS20TA2 PO
[2020-04-24 11:24] LABS: HEMATOCRIT 32.8 % (36.0-47.0); HEMOGLOBIN 9.3 g/dl (12.0-15.5); MEAN CORPUSCULAR HEMOGLOBIN 23.1 pg (27.0-33.0); MEAN CORPUSCULAR HGB CONC 28.4 g/dl (32.0-36.5); MEAN CORPUSCULAR VOLUME 81.6 fl (80.0-96.0); PLATELET COUNT, AUTOMATED 406 10^3/uL (150-450); RED BLOOD COUNT 4.02 10^6/uL (4.00-5.40)
[2020-04-24 11:42] LABS: HEMOGLOBIN A1c 7.5 %
[2020-04-24 12:05] LABS: CALCIUM LEVEL 9.1 MG/DL (8.8-10.2); CREATININE FOR GFR 1.42 MG/DL (0.55-1.30); GLOMERULAR FILTRATION RATE 38.1 (>39); POTASSIUM SERUM 4.2 MEQ/L (3.5-5.1)
== END ==
LOC: M SFHCCLAY 07:25
PROVIDERS: ATTEND Family Medicine
DX: N28.9 Disorder of kidney and ureter, unspecified (principal); I50.9 Heart failure, unspecified; D50.0 Iron deficiency anemia secondary to blood loss (chronic); E11.8 Type 2 diabetes mellitus with unspecified complications
CPT/HCPCS: 80048; 83036; 83880; 85027; G0463

== ENCOUNTER → 2020-05-08 | Outpatient (REF) | payer MEDICARE ==
[2020-05-08 11:44] LABS: HEMATOCRIT 32.6 % (36.0-47.0); HEMOGLOBIN 9.1 g/dl (12.0-15.5); MEAN CORPUSCULAR HEMOGLOBIN 22.5 pg (27.0-33.0); MEAN CORPUSCULAR HGB CONC 27.9 g/dl (32.0-36.5); MEAN CORPUSCULAR VOLUME 80.5 fl (80.0-96.0); PLATELET COUNT, AUTOMATED 399 10^3/uL (150-450); RED BLOOD COUNT 4.05 10^6/uL (4.00-5.40)
[2020-05-08 12:11] LABS: CALCIUM LEVEL 9.3 MG/DL (8.8-10.2); CREATININE FOR GFR 1.45 MG/DL (0.55-1.30); GLOMERULAR FILTRATION RATE 37.2 (>39); PERCENT SATURATION 4.1 % (13.2-45.0)
[2020-05-08 12:22] LABS: FOLATE 9.4 NG/ML (>5.4)
== END ==
LOC: M SFHCCLAY 07:54
PROVIDERS: ATTEND Family Medicine
DX: N28.9 Disorder of kidney and ureter, unspecified (principal); D64.9 Anemia, unspecified; I50.9 Heart failure, unspecified

== ENCOUNTER → 2020-05-30 | Outpatient (REF) | payer MEDICARE ==
[2020-05-30 11:31] LABS: HEMATOCRIT 32.1 % (36.0-47.0); MEAN CORPUSCULAR HEMOGLOBIN 22.7 pg (27.0-33.0); MEAN CORPUSCULAR VOLUME 81.1 fl (80.0-96.0); PLATELET COUNT, AUTOMATED 355 10^3/uL (150-450); RED BLOOD COUNT 3.96 10^6/uL (4.00-5.40); WHITE BLOOD COUNT 6.3 10^3/uL (4.0-10.0)
[2020-05-30 12:08] LABS: CALCIUM LEVEL 9.6 MG/DL (8.8-10.2); CREATININE FOR GFR 1.22 MG/DL (0.55-1.30); GLOMERULAR FILTRATION RATE 45.4 (>39); POTASSIUM SERUM 3.7 MEQ/L (3.5-5.1)
== END ==
LOC: M SFHCCLAY 07:09
PROVIDERS: ATTEND Family Medicine
DX: I50.9 Heart failure, unspecified (principal); E61.1 Iron deficiency

== ENCOUNTER 2020-06-04 09:08 | Outpatient (CLI) | payer MEDICARE ==
[~2020-06-04] VITALS: Ht 163.8 cm; Wt 85.3 kg
[2020-06-04] VITALS (7 sets, daily range): BP systolic 152–170; BP diastolic 68–78
[~2020-06-04 09:08] MED LIST changes: -BUPR150T3 PO; +BUPR150T4 PO; +IRON SUCROSE 25 MG in NS 25 ML IV ONE; +IRON SUCROSE 475 MG in NS 250 ML IV ONE
== END 2020-06-04 14:30 | disposition home or self-care (01) ==
LOC: M INFU 09:08
PROVIDERS: ATTEND Family Medicine
DX: D50.9 Iron deficiency anemia, unspecified (principal); Z88.1 Allergy status to other antibiotic agents; Z88.8 Allergy status to other drugs, medicaments and biological substances; Z88.6 Allergy status to analgesic agent
CPT/HCPCS: 96365; 96366; J1756

== ENCOUNTER → 2020-06-27 | Outpatient (REF) | payer MEDICARE ==
[~2020-06-27] MED LIST changes: -IRON SUCROSE 25 MG in NS 25 ML IV ONE; -IRON SUCROSE 475 MG in NS 250 ML IV ONE; +ISOS1TAB35 PO; -ISOS30TA4 PO; -LISI-538 PO; +LISI20TA33 PO
[2020-06-28 11:27] LABS: HEMATOCRIT 39.6 % (36.0-47.0); HEMOGLOBIN 11.6 g/dl (12.0-15.5); MEAN CORPUSCULAR HEMOGLOBIN 25.5 pg (27.0-33.0); MEAN CORPUSCULAR HGB CONC 29.3 g/dl (32.0-36.5); PLATELET COUNT, AUTOMATED 362 10^3/uL (150-450); RED BLOOD COUNT 4.55 10^6/uL (4.00-5.40); WHITE BLOOD COUNT 6.1 10^3/uL (4.0-10.0)
== END ==
LOC: M SFHCCLAY 14:41
PROVIDERS: ATTEND Family Medicine
DX: D50.9 Iron deficiency anemia, unspecified (principal)
CPT/HCPCS: 83540; 85027; G0463

== ENCOUNTER → 2020-07-22 | Outpatient (REF) | payer MEDICARE ==
[~2020-07-22] MED LIST changes: +BUPR150T12 PO; -BUPR150T4 PO
[2020-07-22 11:32] LABS: HEMATOCRIT 42.2 % (36.0-47.0); HEMOGLOBIN 12.5 g/dl (12.0-15.5); MEAN CORPUSCULAR HGB CONC 29.6 g/dl (32.0-36.5); MEAN CORPUSCULAR VOLUME 87.7 fl (80.0-96.0); PLATELET COUNT, AUTOMATED 334 10^3/uL (150-450); RED BLOOD COUNT 4.81 10^6/uL (4.00-5.40); WHITE BLOOD COUNT 7.2 10^3/uL (4.0-10.0)
[2020-07-22 12:20] LABS: CALCIUM LEVEL 10.2 MG/DL (8.8-10.2); CREATININE FOR GFR 1.39 MG/DL (0.55-1.30); POTASSIUM SERUM 3.5 MEQ/L (3.5-5.1)
== END ==
LOC: M SFHCCLAY 06:59
PROVIDERS: ATTEND Family Medicine
DX: I50.33 Acute on chronic diastolic (congestive) heart failure (principal); D50.9 Iron deficiency anemia, unspecified

== ENCOUNTER → 2020-08-09 | Outpatient (CLI) | payer MEDICARE ==
--- NOTE | 2020-08-09 08:40 | REP ---
INDICATION: RENAL INSUFFIENCY COMPARISON: 04/02/2020 TECHNIQUE: Real time nunez scale ultrasound examination using curved array transducer followed by color Doppler evaluation of the renal vasculature. FINDINGS: Right kidney is again atrophic in appearance and measures 9.1 x 3.4 x 3.2 cm without hydronephrosis. Left kidney measures 13.0 x 4.1 x 5.3 cm without hydronephrosis or obvious abnormality. Bladder is normal and bilateral ureteral jets are identified. Color Doppler evaluation is significantly limited due to overlying bowel gas and the main renal arteries as well as right intrarenal vasculature for poorly and incompletely. Peak aortic velocity: 147.7 centimeters/second RIGHT KIDNEY Renal arterial velocity: Gassed out Renal-aortic ratio: -- Intrarenal resistive indices: 0.75 (lower pole only) Intrarenal acceleration times: 0.030 (lower pole only) LEFT KIDNEY Renal arterial velocity: Gassed out Renal-aortic ratio: -- Intrarenal resistive indices: 0.77-0.79 Intrarenal acceleration times: 0.055-0.058 IMPRESSION: 1. Known atrophic appearance of the right kidney. No hydronephrosis or obvious acute process.. 2. Doppler evaluation is significantly limited and essentially nondiagnostic due to overlying bowel gas. Consider CTA or MRA if necessary. <Electronically signed by Vivek Gaona > 08/09/20 [id number]
== END ==
LOC: M RAD 07:23
PROVIDERS: ATTEND Family Medicine
DX: N28.9 Disorder of kidney and ureter, unspecified (principal)

== ENCOUNTER → 2020-08-30 | Outpatient (REF) | payer MEDICARE ==
[2020-08-30 11:13] LABS: HEMATOCRIT 42.8 % (36.0-47.0); HEMOGLOBIN 12.9 g/dl (12.0-15.5); MEAN CORPUSCULAR HEMOGLOBIN 27.4 pg (27.0-33.0); MEAN CORPUSCULAR HGB CONC 30.1 g/dl (32.0-36.5); MEAN CORPUSCULAR VOLUME 90.9 fl (80.0-96.0); PLATELET COUNT, AUTOMATED 308 10^3/uL (150-450); RED BLOOD COUNT 4.71 10^6/uL (4.00-5.40); WHITE BLOOD COUNT 8.1 10^3/uL (4.0-10.0)
[2020-08-30 12:09] LABS: CALCIUM LEVEL 9.9 MG/DL (8.8-10.2); CREATININE FOR GFR 1.31 MG/DL (0.55-1.30); GLOMERULAR FILTRATION RATE 41.8 (>39); POTASSIUM SERUM 4.2 MEQ/L (3.5-5.1)
== END ==
LOC: M SFHCCLAY 08:24
PROVIDERS: ATTEND Family Medicine
DX: D50.9 Iron deficiency anemia, unspecified (principal)

== ENCOUNTER → 2020-11-05 | Outpatient (REF) | payer MEDICARE ==
[~2020-11-05] MED LIST changes: +OMEP40CA4 PO; -OMEP40CA97 PO; +VALS1TAB67 PO
[2020-11-05 16:00] LABS: HEMATOCRIT 40.3 % (36.0-47.0); HEMOGLOBIN 12.6 g/dl (12.0-15.5); MEAN CORPUSCULAR HEMOGLOBIN 29.7 pg (27.0-33.0); MEAN CORPUSCULAR HGB CONC 31.3 g/dl (32.0-36.5); PLATELET COUNT, AUTOMATED 340 10^3/uL (150-450); RED BLOOD COUNT 4.24 10^6/uL (4.00-5.40); WHITE BLOOD COUNT 7.2 10^3/uL (4.0-10.0)
[2020-11-05 16:37] LABS: CALCIUM LEVEL 10.2 MG/DL (8.8-10.2); CREATININE FOR GFR 1.53 MG/DL (0.55-1.30); GLOMERULAR FILTRATION RATE 34.9 (>39); POTASSIUM SERUM 4.8 MEQ/L (3.5-5.1); THYROID STIMULATING HORMONE 2.41 uIU/ML (0.358-3.740)
[2020-11-05 19:07] LABS: HEMOGLOBIN A1c 6.5 %
== END ==
LOC: M SFHCCLAY 13:35
PROVIDERS: ATTEND Family Medicine
DX: I25.10 Atherosclerotic heart disease of native coronary artery without angina pectoris (principal); I11.0 Hypertensive heart disease with heart failure; I50.32 Chronic diastolic (congestive) heart failure; E11.8 Type 2 diabetes mellitus with unspecified complications
CPT/HCPCS: 80048; 83036; 83880; 84443; 85027; G0463

== ENCOUNTER 2020-11-22 09:43 | Inpatient (IN) | payer MEDICARE ==
[~2020-11-22] VITALS: Ht 165.1 cm; Wt 85.8 kg
[~2020-11-22 09:43] MED LIST changes: -VALS1TAB67 PO
[2020-11-22] MEDS ORDERED: VALS1TAB67 PO (10:08)
--- NOTE | 2020-11-22 10:49 | REP ---
INDICATION: right hemianopsia COMPARISON: 04/01/2020 TECHNIQUE: Axial noncontrast images from the skull base to the thoracic inlet with coronal reformations. This CT examination was performed using the following dose reduction techniques: Automated exposure control, adjustment of mA and/or kv according to the patient's size, and use of iterative reconstruction technique. FINDINGS: Atrophy with periventricular leukomalacia and microvascular ischemic changes are appreciated. There is an 8.5 mm rounded area of decreased density in the right basal ganglia/thalamus (series 201; image 15) which may represent a subacute infarction and should be correlated with symptoms. The ventricles and sulci are symmetric. Galindo-white differentiation is maintained. There is no evidence for acute intracranial hemorrhage, mass/mass effect. No extra-axial fluid collection. Calvarium is intact. Paranasal sinuses and mastoid air cells are clear. IMPRESSION: 1. Small rounded low-density area within the right basal ganglia/thalamus may represent subacute infarction and should be correlated with symptoms. 2. Chronic atrophy and microvascular ischemic changes. 3. No intracranial hemorrhage, extra-axial hemorrhage, or edema/mass effect. <Electronically signed by Vivek Gaona > 11/22/20 [id number]
[2020-11-22 10:58] LABS: BASO # 0.1 10^3/uL (0.0-0.2); BASO % 0.7 % (0.0-1.0); EOS # 0.2 10^3/uL (0.0-0.5); EOS % 2.8 % (0.0-3.0); HEMATOCRIT 38.1 % (36.0-47.0); HEMOGLOBIN 11.8 g/dl (12.0-15.5); LYMPH # 0.8 10^3/uL (1.5-5.0); LYMPH % 12.3 % (24.0-44.0); MEAN CORPUSCULAR HEMOGLOBIN 30.2 pg (27.0-33.0); MEAN CORPUSCULAR VOLUME 97.4 fl (80.0-96.0); MONO # 0.4 10^3/uL (0.0-0.8); MONO % 6.2 % (2.0-8.0); NEUTROPHILS # 5.3 10^3/uL (1.5-8.5); NEUTROPHILS % 77.7 % (36.0-66.0); PLATELET COUNT, AUTOMATED 315 10^3/uL (150-450); RED BLOOD COUNT 3.91 10^6/uL (4.00-5.40); WHITE BLOOD COUNT 6.8 10^3/uL (4.0-10.0)
[2020-11-22] MEDS ORDERED: METOCLOPRAMIDE INJ 10MG/2ML VIAL (J2765 PER 1) IV ONE (11:00)
[2020-11-22 11:18] LABS: C REACTIVE PROTEIN QUANTITATIV 1.51 MG/DL (0.00-0.30); CALCIUM LEVEL 9.9 MG/DL (8.8-10.2); CREATININE FOR GFR 1.12 MG/DL (0.55-1.30); GLOMERULAR FILTRATION RATE 50.1 (>39); POTASSIUM SERUM 4.5 MEQ/L (3.5-5.1)
[2020-11-22 11:33] LABS: ERYTHROCYTE SEDIMENTATION RATE 56 mm/hr (0-30)
--- NOTE | 2020-11-22 14:06 | REPVR ---
PROCEDURE INFORMATION: Exam: MRA Head Without Contrast; Arteriography Exam date and time: 11/22/2020 1:47 PM Age: 80 years old Clinical indication: Cognitive deficit; Altered mental status; Additional info: CVA v mass TECHNIQUE: Imaging protocol: Magnetic resonance angiography head without contrast. Exam focused on the arteries. COMPARISON: CT Head without contrast 11/22/2020 10:34 AM FINDINGS: ANTERIOR CIRCULATION: Right internal carotid artery: Intracranial segment is patent with no significant stenosis. No aneurysm. Right middle cerebral artery: No occlusion or significant stenosis. No aneurysm. Right anterior cerebral artery: No occlusion or significant stenosis. No aneurysm. Left internal carotid artery: Intracranial segment is patent with no significant stenosis. No aneurysm. Left middle cerebral artery: No occlusion or significant stenosis. No aneurysm. Left anterior cerebral artery: No occlusion or significant stenosis. No aneurysm. POSTERIOR CIRCULATION: Right vertebral artery: No occlusion or significant stenosis. No aneurysm. Left vertebral artery: No occlusion or significant stenosis. No aneurysm. Basilar artery: No occlusion or significant stenosis. No aneurysm. Right posterior cerebral artery: No occlusion or significant stenosis. No aneurysm. Left posterior cerebral artery: No occlusion or significant stenosis. No aneurysm. IMPRESSION: No stenosis or occlusion. Electronically signed by: Fior Bean On 11/22/2020 14:06:05 PM
--- NOTE | 2020-11-22 14:09 | REPVR ---
PROCEDURE INFORMATION: Exam: MR Head Without Contrast Exam date and time: 11/22/2020 1:47 PM Age: 80 years old Clinical indication: Altered mental status/memory loss; Confusion or disorientation; Additional info: CVA v mass TECHNIQUE: Imaging protocol: MR of the head without contrast. COMPARISON: CT Head without contrast 11/22/2020 10:34 AM FINDINGS: Brain: Foci of diffusion restriction involve the right thalamus and right medial occipital lobe, compatible with acute infarcts. [id number] diffuse volume loss is within the range of normal for patient age. Foci of increased T2/FLAIR white matter hyperintensity are nonspecific but typically reflect small vessel ischemia in this age group. Cerebral ventricles: Prominence of the ventricular system is commensurate with volume loss. Bones/joints: Unremarkable. Paranasal sinuses: Normal as visualized. No acute sinusitis. Mastoid air cells: Normal as visualized. No mastoid effusion. Orbital cavity: Unremarkable. Soft tissues: Unremarkable. 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 Electronically signed by: Fior Bean On 11/22/2020 14:08:51 PM
[2020-11-22] MEDS ORDERED: fentaNYL 100 MCG/2 ML INJECTION (J3010) IV ONE (14:40)
--- NOTE | 2020-11-22 15:17 | REP ---
INDICATION: admission COMPARISON: 04/04/2020 TECHNIQUE: Portable AP view of the chest FINDINGS: Mediastinum and cardiac silhouette are stable and mild cardiomegaly cannot be excluded. Lung luna demonstrate increased interstitial markings and prominent pulmonary vasculature which raise the possibility of chronic pulmonary venous congestion. No focal consolidation. No effusion. No pneumothorax. Skeletal structures intact. IMPRESSION: Chronic appearing changes as described above including possible chronic pulmonary vascular congestion. <Electronically signed by Vivek Gaona > 11/22/20 [id number]
[2020-11-22 15:44] LABS: RSV AMPLIFICATION NEGATIVE (NEGATIVE)
[2020-11-22] MEDS ORDERED: GLUCAGON INJ 1MG VIAL SC PRN (15:50)
[2020-11-22] MEDS ORDERED: MOM 30ML SUSPENSION UDC PO PRN (15:50)
[2020-11-22] MEDS ORDERED: MAALOX 30 ML SUSP *UDC PO PRN (15:50)
[2020-11-22] MEDS ORDERED: DEXTROSE 50% 50 ML SYRINGE IV PRN (15:50)
[2020-11-22] MEDS ORDERED: GLUCOSE 4GM CHEW TABLET PO PRN (15:50)
[2020-11-22] MEDS ORDERED: TORS100T PO (15:52)
[2020-11-22] MEDS ORDERED: ASPIRIN 81 MG CHEW TABLET PO ONE (17:00)
[2020-11-22] MEDS ORDERED: ATORVASTATIN 20 MG TAB PO ONE (17:10)
[2020-11-22] MEDS: HumaLOG INSULIN (NovoLOG) PER UNIT SC SCH ×2 (17:30→21:00)
--- NOTE | 2020-11-22 17:50 | REP ---
INDICATION: stroke COMPARISON: None. TECHNIQUE: Galindo scale and color Doppler evaluation using linear high frequency transducer Findings: FINDINGS: Two-dimensional galindo scale and color images demonstrate moderate amount of atheromatous plaquing (left greater than right). Color Doppler interrogation demonstrates normal arterial wave patterns and velocities with moderate spectral broadening. Normal flow direction is appreciated in the bilateral vertebral arteries. ICA peak systolic velocity: Right 125 cm/s; Left 245 cm/s ICA diastolic velocity: Right 17.5 cm/s; Left 37.9 cm/s ECA peak systolic velocity: Right 164 cm/s; Left 165 cm/s CCA peak systolic velocity: Right 105 cm/s; Left 120 cm/s ICA/CCA ratio: Right 1.2 cm/s; Left 2.1 cm/s IMPRESSION: Narrowing in the left carotid artery in the upper end of 50-69% range. Narrowing in the right carotid artery in the lower and of 50-69% range. <Electronically signed by Vivek Gaona > 11/22/20 [id number]
--- NOTE | 2020-11-22 17:51 | HPEPDOC ---
General Date of Admission Nov 22, 2020 at 17:05 Date of Service: Nov 22, 2020 Attending Physician: LULY HASSAN MD Chief Complaint The patient is a 80-year-old female admitted with a reason for visit of Hypertensive Urgency, Occipital/Thalamic Stroke. Source: Patient Exam Limitations: No limitations Timing/Duration: Other (Patient admits to having localized right sided headache for 36 hours duration. Patient admits to having vision loss for 24 hours duration. ) Severity: Severe (Patient states headache is a 10/10 on pain scale) Associated Symptoms: Headaches, Other (vision loss) History of Present Illness Presenting compliant: Right sided headache and vision loss History of present illness: Mrs. Deleon is a pleasant 80-year-old female who presented to the emergency department for right sided non radiating headache located above her right eye for 36 hours duration and vision loss of 24 hours duration. She states that she woke up yesterday morning with a severe headache and spent most of the day in bed in hopes of relieving the headache. She did not take any over the counter medications to relieve the pain and she rates her headache as a 10/10 in intensity. She first noticed the vision loss yesterday evening while speaking to her . She states her blood pressure usually averages 150/80 at home. She did not take any of her blood pressure medications today. She denies numbness, tingling, syncopal episodes, chest pain, shortness of breath, palpitations, facial droop, slurring of her speech, or difficulty ambulatory around her house. She states that her mother had a stroke at age 73 and two of her sisters have also had strokes in their 70's. Past medical history: - Hypertension - Diabetes mellitus - Acute on chronic diastolic CHF (2019) - Hyperlipidemia - Coronary artery disease s/p RCA stent (2007) - Osteoarthritis/rheumatoid arthritis - GERD - Depression - Takotsubo cardiomyopathy in 2014 - Chronic back pain/ spondylosis of the lumbar region. 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 Surgical history: - Bilateral knee replacement - Hysterectomy - Cystectomy - Bilateral carpal tunnel repair - Right coronary artery drug eluting stent 2007 Social history: She denies smoking cigarettes or using tobacco products since 1987. She denies drinking alcohol or using illicit drugs. Family History: Father: from pancreatic cancer. Mother: , from stroke, cardiac disease. Siblings: , heart problems, CVA, stroke. REVIEW OF SYSTEMS: Constitutional: Denies having fever, chills, night sweats, weight loss. Eyes: Admits to loss of vision and blurry vision (unable to specify which visual luna), denies complete loss of vision. Head: admits to localized right sided headache over right eye that is non radiating. Cardiovascular: Denies any chest pain or palpitations Respiratory: Denies shortness of breath, wheezing, or cough Gastrointestinal (GI): Admits to nausea. Denies vomiting, constipation, diarrhea, or abdominal pain. Genitourinary: Denies dysuria, hematuria. Musculoskeletal: Denies muscle weakness or difficulty ambulating Extremities: Denies lower extremity edema or loss of sensation in extremities. Hematology/Oncology: Denies any easy bleeding or bruising. All other review of systems is negative. PHYSICAL EXAMINATION: General: Patient is alert and oriented. She appears uncomfortable and has her eyes closed and her right hand holding the area located above her right eye. She is in mild distress due to headache, per patient. Eyes: Conjunctiva clear, pupils equal round and reactive to light. Vision: Left visual field vision loss bilaterally. ENT: He reports to have hearing difficulty on the right side. No nasal deviation, oropharynx clear, no uvula seen and she reports she had surgery. Cardiovascular: S1, S2, normal rhythm, soft systolic murmur appreciated in left 2nd intercostal space. No gallops appreciated. Respiratory: Chest is clear to auscultation bilaterally in upper and lower lobes. No rhonchi, wheezes or rubs. Abdomen: Soft, bowel sounds positive, no bruits. Nontender on palpation. Extremities: No clubbing or cyanosis. Trace edema appreciated bilaterally, no tenderness. Central nervous system (PESTICIDE CONTROL INSPECTOR): Awake, alert and fully oriented. Cranial nerves III-XII grossly intact except cranial nerve 8 which is diminished in left ear. Motor: Strength normal, patient moves all extremities. Negative finger to nose test, negative pronator drift. Skin: No rashes, lesions, ulcerations. Imaging: CT Head without contrast 11/22/20: Impression: Small rounded low-density area within the right basal ganglia/thalamus may represent subacute infarction and should be correlated with symptoms. Chronic atrophy and microvascular ischemic changes. No intracranial hemorrhage, extra- axial hemorrhage, or edema/mass effect. Brain MRI w/out contrast 11/22/20:Impression: Focal acute infarcts involving the right thalamus and right medial occipital lobe. Brain MRA w/out contrast 11/22/20: Impression: No stenosis or occlusion. Chest Xray 11/22/20: Impression: Chronic appearing changes as described above including possible chronic pulmonary vascular congestion. Carotid duplex 11/22/20: Impression: Narrowing in the left carotid artery in the upper end of 50-69% range. Narrowing in the right carotid artery in the lower and of 50-69% range. Assessment: Mrs. Deleon is a 80-year-old female patient with past medical history of HTN, IDDM2, HDL, CAD s/p stenting and RCA, breast cancer s/p radiation, depression, takotsubo cardiomyopathy presented to the emergency department right sided headache and vision loss was found to have focal acute infarcts involving the right thalamus and right medial occipital lobe confirming a diagnosis of acute stroke. Plan: #Acute stroke -Patient presented with right sided headache and vision loss -Brain MRI showed focal acute infarcts involving the right thalamus and right medial occipital lobe. -Carotid u/s: Narrowing in the left carotid artery in the upper end of 50-69% range. Narrowing in the right carotid artery in the lower and of 50-69% range. -Echocardiogram has been ordered. -Patient has loss of vision in left visual field of both eyes on physical exam (left homonymous hemianopia). -Systolic blood pressure parameter 140-180 -Started patient on atorvastatin 80mg, she states she has had mild GI upset in the past while on HMG CoA inhibitors in the past. The benefit outweighs the risk in this situation. Ordered lipid panel. -Dual antiplatelet therapy: Continue clopidogrel 75mg and start ASA 81mg -Scored 1 on NIH Stroke Scale -Consulted neurology, we appreciate their input with this patient -Patient on 2gm Na diet, she has no difficulty swallowing. #Hypertensive urgency: - Patient is on multiple blood pressure medications at home and reports her home blood pressure averages 150/80. She did not take any of her blood pressure medications today. -Patient had workup for renal artery stenosis during hospitalization 1 year ago. -BP parameter between 140-180 systolic -Continue patient on spironolactone, torsemide, and valsartan. -Hold amlodipine to ensure blood pressure is not lowered too quickly. #Headache -Likely secondary to hypertension -Patient was given fentanyl in the ED with no relief of pain -Gave pt one time order of Fioricet. #Diabetes mellitus type 2: Insulin dependent - Will start her on sliding scale insulin - She is on 22 units of insulin at home. - Will continue to monitor glucose levels -Hypoglycemic parameters in place. #Coronary artery disease s/p stenting: - Will continue Plavix 75 mg. -Started patient on ASA 81mg #Diastolic CHF -History of acute on chronic diastolic CHF in 2019 -CXR 11/22/20: Chronic appearing changes as described above including possible chronic pulmonary vascular congestion. #GERD: - Continue omeprazole 40 mg by mouth. #Depression -Continue wellbutrin and sertraline #DVT prophylaxis: -Heparin GME ATTESTATION My faculty preceptor for this patient encounter was physically present during the encounter and was fully available. All aspects of the patient interview, examination, medical decision making process, and medical care plan development were reviewed and approved by the faculty preceptor. The faculty preceptor is aware and concurs with the plan as stated in the body of this note and will attest to such by his/her cosignature. Home Medications Scheduled Amlodipine Besylate (Amlodipine Besylate) 10 Mg Tablet, 10 MG PO DAILY, (Reported) Bupropion HCl (Bupropion Xl) 300 Mg Tab, 300 MG PO DAILY, (Reported) Carvedilol (Carvedilol) 25 Mg Tablet, 37.5 MG PO BID, (Reported) Clopidogrel Bisulfate (Clopidogrel) 75 Mg Tab, 75 MG PO DAILY, (Reported) Insulin Glargine (Lantus) 1 Units/0.01 Ml Susp, 22 UNITS SC QHS, (Reported) Insulin Human Lispro (Novolog) 100 U/Ml Inj, 1 DOSE SC AC, (Reported) PER SLIDING SCALE Lorazepam (Ativan) 1 Mg Tab, 1 MG PO QHS, (Reported) Omeprazole (Omeprazole) 40 Mg Cap, 40 MG PO DAILY, (Reported) Sertraline HCl (Sertraline HCl) 50 Mg Tablet, 150 MG PO DAILY, (Reported) Spironolactone (Spironolactone) 25 Mg Tab, 25 MG PO DAILY, (Reported) Torsemide (Torsemide) 100 Mg Tablet, 100 MG PO DAILY, (Reported) Valsartan (Valsartan) 160 Mg Tablet, 160 MG PO DAILY, (Reported) Scheduled PRN Nitroglycerin (Nitrostat) 0.4 Mg Subl, 0.4 MG SL NITRO PRN for CHEST PAIN, (Reported) Allergies Coded Allergies: glimepiride (Verified Allergy, Intermediate, 04/01/20) strawberry (Verified Allergy, Mild, SORES IN MOUTH, 04/01/20) blue dye (Verified Allergy, Unknown, 04/01/20) pregabalin (Verified Allergy, Unknown, 04/01/20) amoxicillin (Verified Adverse Reaction, Intermediate, VOMITING, 04/01/20) clavulanic acid (Verified Adverse Reaction, Intermediate, VOMITING, 04/01/20) codeine (Verified Adverse Reaction, Intermediate, NAUSEA, 04/01/20) duloxetine (Verified Adverse Reaction, Intermediate, INSOMNIA, 04/01/20) gabapentin (Verified Adverse Reaction, Intermediate, CONFUSION, 04/01/20) trazodone (Verified Adverse Reaction, Intermediate, CONFUSION, 04/01/20) Lyxqgsv-Mlm-Pex Reductase Inhibitor (Verified Adverse Reaction, Mild, LEG CRAMPS, 04/01/20) phenol (Verified Adverse Reaction, Mild, "FEELS WEIRD", 04/01/20) exenatide (Verified Adverse Reaction, Unknown, ITCHINESS, 04/01/20) A-FIB/CHADSVASC A-FIB History Current/History of A-Fib/PAF?: No Current PO Anticoag Therapy: No Vital Signs Vital Signs Date Time Temp Pulse Resp B/P (MAP) Pulse Ox O2 Delivery O2 Flow Rate FiO2 11/22/20 16:03 18 Room Air 11/22/20 16:00 69 91 11/22/20 15:58 177/76 (109) 11/22/20 09:58 97.5 Laboratory Data Labs 24H Laboratory Tests 2 11/22/20 10:30: Immature Granulocyte % (Auto) 0.3, Neutrophils (%) (Auto) 77.7H, Lymphocytes (%) (Auto) 12.3L, Monocytes (%) (Auto) 6.2, Eosinophils (%) (Auto) 2.8, Basophils (%) (Auto) 0.7, Neutrophils # (Auto) 5.3, Lymphocytes # (Auto) 0.8L, Monocytes # (Auto) 0.4, Eosinophils # (Auto) 0.2, Basophils # (Auto) 0.1, Nucleated Red Blood Cells % (auto) 0.0, Erythrocyte Sedimentation Rate 56H, Anion Gap 7L, Glomerular Filtration Rate 50.1, Calcium Level 9.9, C-Reactive Protein, Quantitative 1.51H 11/22/20 14:56: Coronavirus (COVID-19)(PCR) NEGATIVE, Influenza Type A (RT-PCR) NEGATIVE, Influenza Type B (RT-PCR) NEGATIVE, Respiratory Syncytial Virus (PCR) NEGATIVE 11/22/20 17:34: CBC/BMP Laboratory Tests 11/22/20 10:30 Plan / VTE VTE Prophylaxis Ordered?: Yes GME ATTESTATION GME ATTESTATION My faculty preceptor for this patient encounter was physically present during the encounter and was fully available. All aspects of the patient interview, examination, medical decision making process, and medical care plan development were reviewed and approved by the faculty preceptor. The faculty preceptor is aware and concurs with the plan as stated in the body of this note and will attest to such by his/her cosignature. ATTENDING NOTE I, Luly Hassan, have independently examined this patient and performed my own physical exam, as well as reviewed the documentation and edited where necessary. I have discussed in detail with the resident / student the findings and plan of treatment as documented by the resident / student and edited their note. I agree with their findings and treatment plan and have edited their documentation. I will continue to follow the patient during this hospital stay. AJAY RUSSO DO Nov 22, 2020 17:51 LULY HASSAN MD Nov 22, 2020 21:06
[2020-11-22 17:55] LABS: INR 0.96
[2020-11-22 18:12] LABS: CHOLESTEROL RISK RATIO 5.76 (<5); CK-MB VALUE MASS 2.1 NG/ML (<3.6); MB/CK RELATIVE INDEX 5.38 (< OR =4); TROPONIN I 0.03 NG/ML (< 0.10)
[2020-11-22 19:13] VITALS: BP 192/80
[2020-11-22] MEDS ORDERED: FIORICET TAB PO ONE ×2 (19:25→20:05)
[2020-11-22] MEDS ORDERED: hydrALAZINE 20MG/ML 1ML VIAL (J0360 PER 20MG) IV PRN (20:05)
--- NOTE | 2020-11-22 20:15 | ECGEPIP ---
[facility] - ED Test Date: 2020-11-22 Pat Name: WEN SCHWAB Department: Room: - Gender: Female Sap Developer: [email or web address] : [id number] Requested By: Juan Ramon Kramer Order Number: [id number] Reading MD: Juan Ramon Resendiz Measurements Intervals Kite Rate: 63 P: 74 OK: 216 QRS: -27 QRSD: 126 T: 85 QT: 444 QTc: 454 Interpretive Statements Sinus rhythm with 1st degree AV block MODERATE INTRAVENTRICULAR CONDUCTION DELAY LVH WITH STRAIN PATTERN SIMILAR TO 04/01/20 Electronically Signed on 11-22-2020 20:14:37 EDT by Juan Ramon Resendiz
[2020-11-22] MEDS: SPIRONOLACTONE 25 MG TAB PO SCH (20:19)
[2020-11-22] MEDS: HEPARIN SOD (PORCINE) 5000UNITS/ML 1ML VIAL/SYRINGE SC SCH (20:19)
[2020-11-22] MEDS: CLOPIDOGREL 75 MG TAB PO SCH (20:21)
[2020-11-22] MEDS: CARVedilol 12.5 MG TAB PO SCH (20:22)
[2020-11-22] MEDS: DOCUSATE SODIUM 100MG CAPSULE PO SCH (20:27)
[2020-11-22 21:00] VITALS: O2SAT 88
[2020-11-22] MEDS: LEVEMIR (INSULIN DETEMIR) 1 UNITS/0.01ML SC SCH (21:00)
[2020-11-22 21:15] VITALS: BP 170/72
[2020-11-22 22:00] VITALS: O2SAT 92
[2020-11-22 23:00] VITALS: O2SAT 97
[2020-11-23] VITALS (27 sets, daily range): BP systolic 158–230; BP diastolic 68–98; O2SAT 90–98
[2020-11-23 04:59] LABS: BASO # 0.1 10^3/uL (0.0-0.2); BASO % 0.9 % (0.0-1.0); EOS # 0.1 10^3/uL (0.0-0.5); EOS % 2.5 % (0.0-3.0); HEMATOCRIT 38.4 % (36.0-47.0); HEMOGLOBIN 11.6 g/dl (12.0-15.5); LYMPH % 16.8 % (24.0-44.0); MEAN CORPUSCULAR HEMOGLOBIN 30.1 pg (27.0-33.0); MEAN CORPUSCULAR HGB CONC 30.2 g/dl (32.0-36.5); MEAN CORPUSCULAR VOLUME 99.5 fl (80.0-96.0); MONO # 0.5 10^3/uL (0.0-0.8); MONO % 8.2 % (2.0-8.0); NEUTROPHILS # 4.1 10^3/uL (1.5-8.5); NEUTROPHILS % 71.4 % (36.0-66.0); PLATELET COUNT, AUTOMATED 281 10^3/uL (150-450); RED BLOOD COUNT 3.86 10^6/uL (4.00-5.40); WHITE BLOOD COUNT 5.7 10^3/uL (4.0-10.0)
[2020-11-23 05:19] LABS: BLOOD UREA NITROGEN 15 MG/DL (7-18); CALCIUM LEVEL 9.6 MG/DL (8.8-10.2); CARBON DIOXIDE LEVEL 23 MEQ/L (21-32); CHLORIDE LEVEL 114 MEQ/L (98-107); CREATININE FOR GFR 0.94 MG/DL (0.55-1.30); GLOMERULAR FILTRATION RATE > 60.0 (>39); GLUCOSE, FASTING 104 MG/DL (70-100); POTASSIUM SERUM 4.4 MEQ/L (3.5-5.1); SODIUM LEVEL 143 MEQ/L (136-145)
[2020-11-23] MEDS: HumaLOG INSULIN (NovoLOG) PER UNIT SC SCH ×4 (07:30→20:38)
[2020-11-23] MEDS: buPROPion **XL** TABLET 150MG (WELLBUTRIN XL) PO SCH (08:10)
[2020-11-23] MEDS: OMEPRAZOLE 20 MG CAP PO SCH (08:10)
[2020-11-23] MEDS: CARVedilol 12.5 MG TAB PO SCH ×2 (08:11→20:37)
[2020-11-23] MEDS: ASPIRIN 81MG ENTERIC TABLET PO SCH (08:11)
[2020-11-23] MEDS: SERTRALINE HCL 50 MG TAB PO SCH (08:12)
[2020-11-23] MEDS: VALSARTAN 80 MG TAB (DIOVAN) PO SCH (08:12)
[2020-11-23] MEDS: ATORVASTATIN 20 MG TAB PO SCH (08:12)
[2020-11-23] MEDS: DOCUSATE SODIUM 100MG CAPSULE PO SCH (08:13)
[2020-11-23] MEDS: HEPARIN SOD (PORCINE) 5000UNITS/ML 1ML VIAL/SYRINGE SC SCH ×2 (08:14→20:37)
[2020-11-23] MEDS: CLOPIDOGREL 75 MG TAB PO SCH (08:14)
--- NOTE | 2020-11-23 08:24 | REP ---
INDICATION: hypoxia overnight COMPARISON: 11/22/2020 TECHNIQUE: Portable AP view of the chest FINDINGS: The mediastinum and cardiac silhouette are stable and within normal limits for portable technique. The lung luna demonstrate chronic appearing changes although mild pulmonary vascular congestion cannot be excluded. No focal consolidation. No effusion. No pneumothorax. Skeletal structures are intact. IMPRESSION: Stable chronic appearing changes. Cannot exclude mild pulmonary vascular congestion. <Electronically signed by Vivek Gaona > 11/23/20 [id number]
[2020-11-23] MEDS: SPIRONOLACTONE 25 MG TAB PO SCH (08:25)
[2020-11-23] MEDS: TORSEMIDE 100 MG TAB PO SCH (10:51)
[2020-11-23] MEDS ORDERED: FIORICET TAB PO ONE (14:15)
--- NOTE | 2020-11-23 15:28 | IPNPDOC ---
Date Seen The patient was seen on 11/23/20. Progress Note SUBJECTIVE: Mrs. Deleon is a pleasant 80-year-old female who is lying in bed resting when I visited her room this morning. She states that the headache she was experiencing yesterday is not very noticeable any longer and rates it as a 2-3 out of 10. She states that her vision loss has improved somewhat from yesterday but she is still unable to see out of her full visual luna bilaterally. She had two episodes of diarrhea in the last 24 hours and states that she does not have much of an appetite this morning. She has not eaten any of her breakfast. She continues to feel somewhat lightheaded upon standing but is able to use the restroom with assistance from a nurse. Her son might visit her today in the hospital and she is looking forward to that. She denies any chest pain, shortne ss of breath, palpitations, muscle weakness, facial droop, slurred speech, or loss of sensation. The patient's oxygen saturation decreased to 88% overnight and she was placed on 2 L of oxygen via nasal cannula. She now has an oxygen saturation of 96%. PHYSICAL EXAMINATION: General: Patient is alert and oriented. She is resting comfortably in her bed Eyes: Conjunctiva clear, pupils equal round and reactive to light. Vision: continued left visual field vision loss bilaterally with little improvement from yesterday. ENT: He reports to have hearing difficulty on the right side. No nasal devia tion, oropharynx clear, no uvula seen (she reports she had this surgically removed during her childhood) Cardiovascular: S1, S2, normal rhythm, soft systolic murmur appreciated in left 2nd intercostal space. No gallops appreciated. Respiratory: Chest is clear to auscultation bilaterally in upper and lower lobes. No rhonchi, wheezes or rubs. Abdomen: Soft, bowel sounds positive, no bruits. Nontender on palpation. Extremities: No clubbing or cyanosis. 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 Cranial nerves III-XII grossly intact except cranial nerve 8 which is diminished in left ear. Motor: Strength normal, patient moves all extremities. LABORATORY DATA, IMAGING STUDIES, MICROBIOLOGY: Please see below. Imaging: CT Head without contrast 11/22/20: Impression: Small rounded low-density area within the right basal ganglia/thalamus may represent subacute infarction and should be correlated with symptoms. Chronic atrophy and microvascular ischemic changes. No intracranial hemorrhage, extra- axial hemorrhage, or edema/mass effect. Brain MRI w/out contrast 11/22/20:Impression: Focal acute infarcts involving the right thalamus and right medial occipital lobe. Brain MRA w/out contrast 11/22/20: Impression: No stenosis or occlusion. Chest Xray 11/22/20: Impression: Chronic appearing changes as described above including possible chronic pulmonary vascular congestion. Carotid duplex 11/22/20: Impression: Narrowing in the left carotid artery in the upper end of 50-69% range. Narrowing in the right carotid artery in the lower and of 50-69% range. Chest X-ray 11/23/20: Impression: Stable chronic appearing changes. Cannot exclude mild pulmonary vascular congestion. Echocardiogram: Performed 11/22/20 results still pending DVT prophylaxis ordered?: yes, heparin ASSESSMENT AND PLAN: Mrs. 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 PROBLEMS: #Acute stroke -Patient presented with right sided headache and vision loss (left visual luna bilaterally) -Brain MRI showed focal acute infarcts involving the right thalamus and right medial occipital lobe.11/22/20 -Carotid u/s: Narrowing in the left carotid artery in the upper end of 50-69% range. Narrowing in the right carotid artery in the lower and of 50-69% range. We will not perform a Carotid endarterectomy at this time because patient has moderate narrowing of R and L carotid arteries. We will continue to manage her medically with statin therapy, antithrombotic therapy, and risk factor modifications. -Echocardiogram performed, results pending. -Patient has loss of vision in left visual field of both eyes on physical exam (left homonymous hemianopia). -Systolic blood pressure parameter 140-180 for 48 to 72 hours after stroke. -Continue atorvastatin 80mg -Continue dual antiplatelet therapy -Consulted neurology, we appreciate their input with this patient -Patient on 2gm Na diet, she has no difficulty swallowing. -Continue patient on telemetry, should be on telemetry for 72 hours total after stroke to monitor for atrial fibrillation. #Hypertensive urgency: -Blood pressure range in last 24 hours: 158/68- 197/86 -Patient given one dose of hydralazine at 13:35; will continue to monitor -BP parameter between 140-180 systolic for 48 to 72 hours after stroke -Continue patient on spironolactone, torsemide, carvedilol and valsartan. -Will resume amlodipine #Headache -Likely secondary to hypertension -Patient rated as 2-3/10 this morning -Patient developed headache this afternoon and was given second dose of Fioricet. -Will continue to monitor #Urinary urgency -Patient states her urine smells foul and she feels the need to urinate much more often than usual -No hematuria -Suprapubic tenderness noted on examination -Ordered UA with reflex to culture #Diarrhea -24 hours in duration, 5-6 loose brown bowel movements -No blood noted in stool -Nurse has been unable to get a sample -Will stop colace -Will monitor patient clinically over the next 24 hours. #Suspected vascular congestion -Seen on chest x ray -Pro BNP: 3248 -Patient does not appear to be fluid overloaded clinically -Echocardiogram results pending -Will diurese patient if she become clinically fluid overloaded. #Hypoxia -Patient's oxygen saturation decreased to 88% on room air overnight -She was placed on 2L NC O2 and has an oxygen saturation of 96%. -A repeat chest x ray was ordered this morning, results as above. #Diabetes mellitus type 2: Insulin dependent - Will start her on sliding scale insulin - She is on 22 units of insulin at home. - Will continue to monitor glucose levels -Hypoglycemic parameters in place. #Coronary artery disease s/p stenting: - Will continue Plavix 75 mg. -Started patient on ASA 81mg #Diastolic CHF -History of acute on chronic diastolic CHF in 2019 -CXR 11/22/20: Chronic appearing changes as described above including possible chronic pulmonary vascular congestion. #GERD: - Continue omeprazole 40 mg by mouth. #Depression -Continue wellbutrin and sertraline #DVT prophylaxis: -Heparin DISPOSITION: We will continue to manage the patient medically with statin therapy, antithrombotic therapy, and risk factor modification. At this time it is important to make sure that the patient's blood pressure is within 140-180 systolic range and to control her headache pain levels. Patient will continue to stay on telemetry for the next 48 hours. We appreciate neurology's input with this patient. As the patient continues to clinically improve in the next day or 2 we will order PT/OT. Patient will likely be discharged on Wednesday morning. GME ATTESTATION My faculty preceptor for this patient encounter was physically present during the encounter and was fully available. All aspects of the patient interview, examination, medical decision making process, and medical care plan development were reviewed and approved by the faculty preceptor. The faculty preceptor is aware and concurs with the plan as stated in the body of this note and will attest to such by his/her cosignature. VS, I&O, 24H, Fishbone Vital Signs/I&O Vital Signs Date Time Temp Pulse Resp B/P (MAP) Pulse Ox O2 Delivery O2 Flow Rate FiO2 11/23/20 14:35 19 11/23/20 13:14 197/86 11/23/20 11:00 96 Nasal Cannula 2.0 11/23/20 08:11 75 11/23/20 08:00 98.1 I&O- Last 24 Hours up to 6 AM 11/23/20 06:00 Intake Total 120 ml Output Total 400 ml Balance -280 ml Laboratory Data 24H LABS Laboratory Tests 2 11/22/20 14:56: Coronavirus (COVID-19)(PCR) NEGATIVE, Influenza Type A (RT-PCR) NEGATIVE, Influenza Type B (RT-PCR) NEGATIVE, Respiratory Syncytial Virus (PCR) NEGATIVE 11/22/20 17:34: Prothrombin Time 13.0, Prothromb Time International Ratio 0.96, Total Creatine Kinase 39, Creatine Kinase MB 2.1, Creatine Kinase MB Relative Index 5.38H, Troponin I 0.03, MF-Rvo-G-Type Natriuretic Peptide 3248H, Triglycerides Level 125, Total Cholesterol 265H, LDL Cholesterol 194H, Non-HDL Cholesterol (LDL + VLDL) 219, Total HDL Cholesterol 46, Cholesterol/HDL Ratio 5.760H 11/22/20 20:37: Bedside Glucose (Misc Panel) 92 11/23/20 04:43: Immature Granulocyte % (Auto) 0.2, Neutrophils (%) (Auto) 71.4H, Lymphocytes (%) (Auto) 16.8L, Monocytes (%) (Auto) 8.2H, Eosinophils (%) (Auto) 2.5, Basophils (%) (Auto) 0.9, Neutrophils # (Auto) 4.1, Lymphocytes # (Auto) 1.0L, Monocytes # (Auto) 0.5, Eosinophils # (Auto) 0.1, Basophils # (Auto) 0.1, Nucleated Red Blo od Cells % (auto) 0.0, Anion Gap 6L, Glomerular Filtration Rate > 60.0, Calcium Level 9.6 11/23/20 12:25: Bedside Glucose (Misc Panel) 129H CBC/BMP Laboratory Tests 11/23/20 04:43 GME ATTESTATION GME ATTESTATION My faculty preceptor for this patient encounter was physically present during the encounter and was fully available. All aspects of the patient interview, examination, medical decision making process, and medical care plan development were reviewed and approved by the faculty preceptor. The faculty preceptor is aware and concurs with the plan as stated in the body of this note and will attest to such by his/her cosignature. ATTENDING NOTE I, Luly Hassan, have independently examined this patient and performed my own physical exam, as well as reviewed the documentation and edited where necessary. I have discussed in detail with the resident / student the findings and plan of treatment as documented by the resident / student and edited their note. I agree with their findings and treatment plan and have edited their documentation. I will continue to follow the patient during this hospital stay. AJAY RUSSO DO Nov 23, 2020 15:28 LULY HASSAN MD Nov 23, 2020 15:35
[2020-11-23] MEDS ORDERED: amLODIPine 5 MG TAB PO ONE ×2 (15:35→17:00)
[2020-11-23] MEDS ORDERED: hydrALAZINE 20MG/ML 1ML VIAL (J0360 PER 20MG) IV ONE (16:45)
[2020-11-23] MEDS ORDERED: NITROGLYCERIN 0.2 MG/HR PATCH TD SCH (18:00)
[2020-11-23] MEDS: LEVEMIR (INSULIN DETEMIR) 1 UNITS/0.01ML SC SCH (20:37)
[2020-11-24] VITALS (12 sets, daily range): BP systolic 126–147; BP diastolic 58–70; O2SAT 91–94
[2020-11-24 05:19] LABS: BASO % 0.4 % (0.0-1.0); EOS # 0.2 10^3/uL (0.0-0.5); EOS % 2.9 % (0.0-3.0); HEMATOCRIT 39.6 % (36.0-47.0); HEMOGLOBIN 12.3 g/dl (12.0-15.5); LYMPH # 1.1 10^3/uL (1.5-5.0); LYMPH % 16.2 % (24.0-44.0); MEAN CORPUSCULAR HEMOGLOBIN 29.8 pg (27.0-33.0); MEAN CORPUSCULAR HGB CONC 31.1 g/dl (32.0-36.5); MEAN CORPUSCULAR VOLUME 95.9 fl (80.0-96.0); MONO # 0.7 10^3/uL (0.0-0.8); MONO % 10.6 % (2.0-8.0); NEUTROPHILS # 4.9 10^3/uL (1.5-8.5); NEUTROPHILS % 69.6 % (36.0-66.0); PLATELET COUNT, AUTOMATED 310 10^3/uL (150-450); RED BLOOD COUNT 4.13 10^6/uL (4.00-5.40)
[2020-11-24 05:46] LABS: CALCIUM LEVEL 10.1 MG/DL (8.8-10.2); CREATININE FOR GFR 1.29 MG/DL (0.55-1.30); GLOMERULAR FILTRATION RATE 42.6 (>39); POTASSIUM SERUM 4.1 MEQ/L (3.5-5.1)
[2020-11-24] MEDS: **NOTE PATIENT COMMENT** MISC XX SCH (05:53)
[2020-11-24] MEDS: HumaLOG INSULIN (NovoLOG) PER UNIT SC SCH ×4 (07:30→20:32)
[2020-11-24] MEDS ORDERED: FIORICET TAB PO ONE (08:15)
[2020-11-24] MEDS: CLOPIDOGREL 75 MG TAB PO SCH (08:47)
[2020-11-24] MEDS: TORSEMIDE 100 MG TAB PO SCH (08:47)
[2020-11-24] MEDS: OMEPRAZOLE 20 MG CAP PO SCH (08:47)
[2020-11-24] MEDS: HEPARIN SOD (PORCINE) 5000UNITS/ML 1ML VIAL/SYRINGE SC SCH ×2 (08:47→20:50)
[2020-11-24] MEDS: buPROPion **XL** TABLET 150MG (WELLBUTRIN XL) PO SCH (08:48)
[2020-11-24] MEDS: SERTRALINE HCL 50 MG TAB PO SCH (08:48)
[2020-11-24] MEDS: ATORVASTATIN 20 MG TAB PO SCH (08:48)
[2020-11-24] MEDS: VALSARTAN 80 MG TAB (DIOVAN) PO SCH (08:48)
[2020-11-24] MEDS: amLODIPine 5 MG TAB PO SCH (08:49)
[2020-11-24] MEDS: CARVedilol 12.5 MG TAB PO SCH ×2 (08:49→20:32)
[2020-11-24] MEDS: ASPIRIN 81MG ENTERIC TABLET PO SCH (08:50)
[2020-11-24] MEDS: SPIRONOLACTONE 25 MG TAB PO SCH (08:50)
[2020-11-24] MEDS ORDERED: amLODIPine 5 MG TAB PO SCH (09:00)
--- NOTE | 2020-11-24 11:55 | ECGEPIP ---
[facility] Test Date: 2020-11-23 Pat Name: WEN SCHWAB Department: Room: [place] [address] Gender: Female Library Circulation Assistant: KILEY : [id number] Requested By: AJAY Rodriguez Order Number: [id number] Reading MD: Balbir Harding Measurements Intervals [place] Rate: 62 P: 86 TN: 202 QRS: -22 QRSD: 122 T: 81 QT: 446 QTc: 452 Interpretive Statements Normal sinus rhythm Nonspecific intraventricular conduction delay Minimal voltage criteria for LVH ( Page product ) Nonspecific ST-T wave abnormality No significant change compared with 11/22/2020. Electronically Signed on 11-24-2020 11:55:41 EDT by Balbir Harding
--- NOTE | 2020-11-24 14:54 | CR ---
CONSULTATION DATE: 11/23/2020 REFERRING PROVIDER: Luly Hassan MD REASON FOR CONSULTATION: Suspicion for acute stroke. HISTORY OF PRESENT ILLNESS: Aubree Deleon is a 80-year-old right-handed female who presented to [facility] with symptoms of decreased vision, frontal headache, ongoing for approximately 36 hours. The patient states that she woke up with this severe headache behind her eyes and had difficulty seeing anything on the left side of her visual luna. The patient had elevated blood pressure while at home. She did not have symptoms of numbness or weakness. The patient denied any diplopia, dysarthria, dysphagia, vertigo, dizziness. Head CT in the emergency department was suspicious for right thalamic stroke. The patient had an MRI of the brain showing right thalamic acute stroke with right occipital stroke. The patient also had MR angiography completed which was negative. The patient was taking Plavix 25 mg daily at home on regular basis, Aspirin 81 mg was added. The patient had history of intolerance to statins, however, Atorvastatin 80 mg was provided to her. REVIEW OF SYSTEMS: 14-point review of systems was negative except as per HPI. MEDICAL HISTORY: 1. Hypertension. 2. Type 2 diabetes. 3. Tncjm-hy-[id number] diastolic congestive heart failure. 4. Hyperlipidemia. 5. Coronary artery disease, status post RCA stent in 2007. 6. Osteoarthritis. 7. Rheumatoid arthritis. 8. Gastroesophageal reflux disease. 9. Depression. 10. Takotsubo cardiomyopathy in 2014. 11. Chronic back pain. 12. Spondylosis of the lumbar region. 13. Breast cancer. 14. Left ductal carcinoma in situ, status post radiation therapy. SURGICAL HISTORY: 1. Bilateral knee replacement. 2. Hysterectomy. 3. Cystectomy. 4. Bilateral carpal tunnel surgery. 5. Right coronary artery drug-eluting stent placed in 2007. FAMILY HISTORY: Siblings with stroke, mother with stroke and cardiovascular disease, father with pancreatic cancer. SOCIAL HISTORY: The patient denies use of any tobacco, alcohol or illicit drugs but was a former smoker quitting in 1987. PHYSICAL EXAMINATION: VITAL SIGNS: Blood pressure 186/84, pulse rate 61, respiratory rate 21, temperature 97.5 degrees Fahrenheit, oxygenation is 90% on 2 liters nasal cannula. GENERAL: The patient is oriented to person, place and time. Speech, language, comprehension, repetition are intact. HEENT: Pupils appear 2 mm, round, reactive to light. Extraocular movements are intact. Visual luna are lost on the left visual field; the patient has homonymous hemianopsia with left visual field loss. Tongue is midline. Smile is symmetric. No loss of sensation to V1, V2, V3 bilaterally to light touch. Hearing is equal to finger rub. NEURO: There does not appear to be a pronator drift. Strength appears to be intact and 5/5 bilateral deltoid, biceps, triceps, hand sound ranging crewmember, iliopsoas, quadriceps and anterior tibialis. Deep tendon reflexes are 2 in the upper extremities, reduced at the patella and Achilles. Babinski signs are absent. Sensory is intact to light touch in all four extremities. There is no ataxia or dysmetria on [id number]. Romberg testing and gait deferred. 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 The patient has left-sided homonymous hemianopsia as a result. PLAN: 1. Keep systolic blood pressure 140-180 another 24 hours. 2. Agree with dual antiplatelet therapy, Plavix 75 mg plus 81 mg Aspirin daily. 3. Agree with Atorvastatin 80 mg therapy. 4. Recommend PT/OT evaluation and rehab evaluation. 5. Recommend current statin therapy. Watch for any side effects. 6. Complete echocardiogram, report is pending. 7. Carotid ultrasound completed, reviewing narrowing at the left carotid artery upper end 50-69%, narrowing of the right internal carotid artery lower end 50-69%. Outpatient vascular consultation is recommended. The patient can follow up in the outpatient neurology clinic on discharge.
--- NOTE | 2020-11-24 15:59 | IPNPDOC ---
Text Note Date of Service The patient was seen on 11/24/20. NOTE Subjective: Patient is a 80 year old female with a PMHx of CAD s/p stent, Takotsubo cardiomyopathy, HTN, Diastolic CHF, DM2, DLP, Breast CA (s/p Radiation ), OA, Depression, GERD who presented to the ER with right-sided headache and visual problems. Patient had imaging completed emergency room that was consistent with an acute infarct. Patient was admitted to the hospital service for further evaluation and treatment. Neurology was called on consultation. Over last few days patient has had significant hypertension that has finally had some improvement. Patient was seen and examined at the bedside. Patient reports that her headache has finally resolved. She denies any nausea, vomiting, chest pain, short of breath, palpitations, abdominal pain, constipation, or urinary discomfort. Objective: Vitals (See below) General: Lying in bed, appears comfortable, AAOx3 HEENT: NC, AT CVS: +S1S2 Lungs: Fair air entry b/l, no wheezing, rales or rhonchi Abdomen: Soft, ND, NT Extremities: - Edema, - Calf tenderness Imaging: CT Head 11/23: 1. Small rounded low-density area within the right basal ganglia/thalamus may represent subacute infarction and should be correlated with symptoms. 2. Chronic atrophy and microvascular ischemic changes. 3. No intracranial hemorrhage, extra-axial hemorrhage, or edema/mass effect. MRI Brain 11/23: Focal acute infarcts involving the right thalamus and right medial occipital lobe. MRA Brain 7: No stenosis or occlusion. CXR 7/3: Chronic appearing changes as described above including possible chronic pulmonary vascular congestion. Vascular US 7/: Narrowing in the left carotid artery in the upper end of 50-69% range. Narrowing in the right carotid artery in the lower and of 50-69% range. CXR 7/3: Stable chronic appearing changes. Cannot exclude mild pulmonary vascular congestion. Assessment and plan: Acute CVA - Patient has reported improvement of her symptoms - Fasting lipid profile noted - Imaging noted above - ECHO results pending - c/w Plavix and ASA 81 - c/w Atorvastatin 80 - Patient will have outpatient follow up with Vascular surgery for evaluation of carotid stenosis - Neurology on consultation; appreciate their input Hypertensive urgency - Blood pressure remains well-controlled - s/p Permissive HTN period - c/w Amlodipine, Carvedilol, Valsartan, Spironolactone, Furosemide - s/p Nitroglycerin patch s/p Headache - likely 2/2 HTN - Patient's blood pressure is doing better this morning - See above - c/w Fioricet when necessary s/p Urinary frequency s/p Diarrhea - s/p Bowel regimen IDDM2 - c/w ISS and Levemir CAD s/p stent - c/w Plavix / Carvedilol / Valsartan Chronic diastolic CHF - No evidence of decompensation - Physical without evidence of fluid overload - Imaging noted above - c/w spironolactone and torsemide Depression - c/w Wellbutrin and Sertraline GERD - c/w Omeprazole DVT prophylaxis - c/w Heparin Disposition: - Anticipate DC home tomorrow after BP remains well controlled and patient works with PT / OT VS,tSefany, I+O VS, Stefany, I+O Laboratory Tests 11/24/20 04:52 11/24/20 04:53 Vital Signs Date Time Temp Pulse Resp B/P (MAP) Pulse Ox O2 Delivery O2 Flow Rate FiO2 11/24/20 12:00 97.2 53 20 126/58 (80) 96 Room Air 11/23/20 16:00 2.0 I&O- Last 24 Hours up to 6 AM 11/24/20 06:00 Intake Total 120 ml Output Total 950 ml Balance -830 ml OMAR PEPPER MD Nov 24, 2020 15:59
[2020-11-24] MEDS: FIORICET TAB PO PRN (20:51)
[2020-11-24] MEDS: LEVEMIR (INSULIN DETEMIR) 1 UNITS/0.01ML SC SCH (20:51)
[2020-11-25] VITALS (14 sets, daily range): BP systolic 135–172; BP diastolic 61–79; O2SAT 92–95
[2020-11-25 05:07] LABS: BASO % 0.6 % (0.0-1.0); EOS # 0.2 10^3/uL (0.0-0.5); EOS % 3.1 % (0.0-3.0); HEMATOCRIT 39.7 % (36.0-47.0); HEMOGLOBIN 12.7 g/dl (12.0-15.5); LYMPH # 1.2 10^3/uL (1.5-5.0); LYMPH % 16.9 % (24.0-44.0); MEAN CORPUSCULAR HEMOGLOBIN 30.2 pg (27.0-33.0); MEAN CORPUSCULAR VOLUME 94.3 fl (80.0-96.0); MONO # 0.8 10^3/uL (0.0-0.8); MONO % 11.7 % (2.0-8.0); NEUTROPHILS # 4.8 10^3/uL (1.5-8.5); NEUTROPHILS % 67.6 % (36.0-66.0); PLATELET COUNT, AUTOMATED 300 10^3/uL (150-450); RED BLOOD COUNT 4.21 10^6/uL (4.00-5.40); WHITE BLOOD COUNT 7.1 10^3/uL (4.0-10.0)
[2020-11-25] MEDS: FIORICET TAB PO PRN ×3 (05:07→21:17)
[2020-11-25] MEDS: **NOTE PATIENT COMMENT** MISC XX SCH (05:10)
[2020-11-25 05:36] LABS: CALCIUM LEVEL 10.5 MG/DL (8.8-10.2); CREATININE FOR GFR 1.57 MG/DL (0.55-1.30); GLOMERULAR FILTRATION RATE 33.9 (>39); POTASSIUM SERUM 3.8 MEQ/L (3.5-5.1)
[2020-11-25] MEDS: HumaLOG INSULIN (NovoLOG) PER UNIT SC SCH ×4 (07:30→21:00)
[2020-11-25] MEDS: ASPIRIN 81MG ENTERIC TABLET PO SCH (08:25)
[2020-11-25] MEDS: CARVedilol 12.5 MG TAB PO SCH ×2 (08:25→21:00)
[2020-11-25] MEDS: ATORVASTATIN 20 MG TAB PO SCH (08:26)
[2020-11-25] MEDS: buPROPion **XL** TABLET 150MG (WELLBUTRIN XL) PO SCH (08:26)
[2020-11-25] MEDS: SERTRALINE HCL 50 MG TAB PO SCH (08:26)
[2020-11-25] MEDS: amLODIPine 5 MG TAB PO SCH (08:26)
[2020-11-25] MEDS: OMEPRAZOLE 20 MG CAP PO SCH (08:26)
[2020-11-25] MEDS: HEPARIN SOD (PORCINE) 5000UNITS/ML 1ML VIAL/SYRINGE SC SCH ×2 (08:27→21:16)
[2020-11-25] MEDS: CLOPIDOGREL 75 MG TAB PO SCH (08:27)
--- NOTE | 2020-11-25 12:58 | REP ---
INDICATION: vision change s/p stroke COMPARISON: 11/22/2020 TECHNIQUE: Axial noncontrast images from the skull base to the thoracic inlet with coronal reformations. This CT examination was performed using the following dose reduction techniques: Automated exposure control, adjustment of mA and/or kv according to the patient's size, and use of iterative reconstruction technique. FINDINGS: Atrophy with periventricular leukomalacia and microvascular ischemic changes are appreciated. Stable lacunar infarct in the right thalamus and right basal ganglia noted. The ventricles and sulci are symmetric. Galindo-white differentiation is maintained. There is no evidence for acute intracranial hemorrhage, mass/mass effect, pathology or infarction. No extra-axial fluid collection. Calvarium is intact. Paranasal sinuses and mastoid air cells are clear. IMPRESSION: Atrophy and microvascular ischemic changes. Stable lacunar infarcts. No acute intracranial hemorrhage, infarction, or mass/mass effect. <Electronically signed by Vivek Gaona > 11/25/20 [id number]
--- NOTE | 2020-11-25 13:57 | IPNPDOC ---
Date Seen The patient was seen on 11/25/20. Progress Note SUBJECTIVE: Mrs. Deleon was resting in bed when I walked into her room this morning. She states that her headache returned this morning and did not seem to be as relieved by the fioricet as it has been in the last two days. She also states that she becomes dizzy with ambulation and can hear a "swishing" sound in her head. She believes this may be caused by her blood pressure. Mrs. Deleon s tates that she had complete vision loss this morning for half an hour that subsided. She is not able to see about 3/4 as much as she could upon admission to the hospital. She has not had much of an appetite and has only eaten a hamburger and some juice in the last 24 hours which she admits was followed by an episode of diarrhea. She attributes the diarrhea to the atorvastatin that she is taking. She was weaned off of the 2L of oxygen and has an oxygen saturation of 94% on room air. She denies any chest pain, shortness of breath, nausea, vomiting, palpitations, abdominal pain, constipation, or urinary discomfort. OBJECTIVE PHYSICAL EXAMINATION: General: Patient is alert and oriented. She is resting comfortably in her bed Eyes: Conjunctiva clear, pupils equal round and reactive to light. Vision: patient unable to stratify which visual luna she can see. She states she has 3/4 of her vision back from time of admission. ENT: He reports to have hearing difficulty on the right side. No nasal deviation, oropharynx clear, no uvula seen (she reports she had this surgically removed during her childhood) Cardiovascular: S1, S2, normal rhythm, soft systolic murmur appreciated in left 2nd intercostal space. No gallops appreciated. Respiratory: Chest is clear to auscultation bilaterally in upper and lower lobes. No rhonchi, wheezes or rubs. Abdomen: Soft, bowel sounds positive, no bruits. Nontender on palpation. Extremities: No clubbing or cyanosis. Trace edema that is unchanged from yesterday appreciated, no tenderness to palpation Central nervous system (TAG METER OPERATOR): Awake, alert and fully oriented. Cranial nerves III-XII grossly intact except cranial nerve 8 which is diminished in left ear. Motor: Strength normal, patient moves all extremities. LABORATORY DATA, IMAGING STUDIES, MICROBIOLOGY: Please see below. CT Head without contrast 11/22/20: Impression: Small rounded low-density area within the right basal ganglia/thalamus may represent subacute infarction and should be correlated with symptoms. Chronic atrophy and microvascular ischemic changes. No intracranial hemorrhage, extra- axial hemorrhage, or edema/mass effect. Brain MRI w/out contrast 11/22/20:Impression: Focal acute infarcts involving the right thalamus and right medial occipital lobe. Brain MRA w/out contrast 11/22/20: Impression: No stenosis or occlusion. Chest Xray 11/22/20: Impression: Chronic appearing changes as described above including possible chronic pulmonary vascular congestion. Carotid duplex 11/22/20: Impression: Narrowing in the left carotid artery in the upper end of 50-69% range. Narrowing in the right carotid artery in the lower and of 50-69% range. Chest X-ray 11/23/20: Impression: Stable chronic appearing changes. Cannot exclude mild pulmonary vascular congestion. Head CT without contrast 11/25/20: Impression: Atrophy and microvascular ischemic changes. Stable lacunar infarcts. No acute intracranial hemorrhage, infarction, or mass/mass effect. Echocardiogram: results still pending 11/22 DVT prophylaxis ordered?: yes, heparin ASSESSMENT AND PLAN: Mrs. 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 PROBLEMS: #Acute stroke -Patient presented with right sided headache and vision loss (left visual luna bilaterally) -Brain MRI showed focal acute infarcts involving the right thalamus and right medial occipital lobe.11/22/20 -Carotid u/s: Narrowing in the left carotid artery in the upper end of 50-69% range. Narrowing in the right carotid artery in the lower and of 50-69% range. -Echocardiogram performed, results pending. -Patient admits to having complete vision loss this morning, we ordered a stat repeat head CT with results shown above. -Goal systolic blood pressure: below 160 -Continue atorvastatin 80mg and dual antiplatelet therapy (ASA / Plavix) -Consulted neurology, we appreciate their input with this patient - Will have outpatient follow up with Vascular surgery for evaluation of carotid disease #Hypertensive urgency: -Blood pressure range in last 24 hours: 140/63-172/79 -currently holding nephrotoxic blood pressure medications: spironolactone, torsemide, and valsartan. -Goal systolic blood pressure is below 160 #Headache -Likely secondary to hypertension -Patient rated as 7/10 this morning -c/w fioricet PRN -Will continue to monitor #VAHID -creatinine increased to 1.57 from 1.29 -Holding nephrotoxic drugs at this time -Will reevaluate BMP in the AM #Dizziness -Upon ambulation -Head CT results as above -likely due to vertigo -started patient on meclizine. #Urinary urgency -Patient denies urinary urgency, suprapubic tenderness, or strong odor today. -No hematuria #Diarrhea -Patient has had 1 soft bm in last 12 hours -likely secondary to atorvastatin -The benefits outweight the risk at this point for the patient to continue taking atorvastatin. #Suspected vascular congestion -Seen on chest x ray -Pro BNP: 3248 -Patient does not appear to be fluid overloaded clinically -Echocardiogram results pending -Will diurese patient if she become clinically fluid overloaded. #Hypoxia -Patient's oxygen saturation decreased to 88% on room air overnight -She was placed on 2L NC O2 and has an oxygen saturation of 96%. -A repeat chest x ray was ordered this morning, results as above. #Diabetes mellitus type 2: Insulin dependent - Will start her on sliding scale insulin - She is on 22 units of insulin at home. - Will continue to monitor glucose levels -Hypoglycemic parameters in place. #Coronary artery disease s/p stenting: - Will continue Plavix 75 mg. -Started patient on ASA 81mg #Diastolic CHF -History of acute on chronic diastolic CHF in 2019 -CXR 11/22/20: Chronic appearing changes as described above including possible chronic pulmonary vascular congestion. #GERD: - Continue omeprazole 40 mg by mouth. #Depression -Continue wellbutrin and sertraline #DVT prophylaxis: -Heparin DISPOSITION: We will continue to manage the patient medically with statin therapy, antithrombotic therapy, and risk factor modification. At this time we are working to maintain patient's blood pressure below 160 systolic, treat her headache with fioricet, bring her kidney function back to baseline by holding nephrotoxic drugs, and monitor for clinical improvement of vision. We appreciate neurology's input with this patient. The patient is working with PT/OT and should be able to be discharged in the next day or two if she continues to clinically improve. She should receive outpatient rehab upon discharge- per PT/OT. Recommend patient follow up in neurology clinic as an outpatient. VS, I&O, 24H, Fishbone Vital Signs/I&O Vital Signs Date Time Temp Pulse Resp B/P (MAP) Pulse Ox O2 Delivery O2 Flow Rate FiO2 11/25/20 12:54 18 11/25/20 12:00 96.9 61 144/67 (92) 94 Room Air 11/23/20 16:00 2.0 I&O- Last 24 Hours up to 6 AM 11/25/20 06:00 Intake Total 960 ml Output Total 1000 ml Balance -40 ml Laboratory Data 24H LABS Laboratory Tests 2 11/24/20 16:39: Bedside Glucose (Misc Panel) 234H 11/24/20 20:28: Bedside Glucose (Misc Panel) 154H 11/25/20 01:57: Bedside Glucose (Misc Panel) 72L 11/25/20 04:31: Immature Granulocyte % (Auto) 0.1, Neutrophils (%) (Auto) 67.6H, Lymphocytes (%) (Auto) 16.9L, Monocytes (%) (Auto) 11.7H, Eosinophils (%) (Auto) 3.1H, Basophils (%) (Auto) 0.6, Neutrophils # (Auto) 4.8, Lymphocytes # (Auto) 1.2L, Monocytes # (Auto) 0.8, Eosinophils # (Auto) 0.2, Basophils # (Auto) 0.0, Nucleated Red Blood Cells % (auto) 0.0, Anion Gap 8, Glomerular Filtration Rate 33.9L, Calcium Level 10.5H CBC/BMP Laboratory Tests 11/25/20 04:31 Microbiology Microbiology 11/23/20 Urine Culture - Final, Complete GME ATTESTATION GME ATTESTATION My faculty preceptor for this patient encounter was physically present during the encounter and was fully available. All aspects of the patient interview, examination, medical decision making process, and medical care plan development were reviewed and approved by the faculty preceptor. The faculty preceptor is aware and concurs with the plan as stated in the body of this note and will attest to such by his/her cosignature. ATTENDING NOTE I, Luly Hassan, have independently examined this patient and performed my own physical exam, as well as reviewed the documentation and edited where necessary. I have discussed in detail with the resident / student the findings and plan of treatment as documented by the resident / student and edited their note. I agree with their findings and treatment plan and have edited their documentation. I will continue to follow the patient during this hospital stay. AJAY RUSSO DO Nov 25, 2020 13:57 LULY HASSAN MD Nov 25, 2020 16:47
[2020-11-25] MEDS ORDERED: MECLIZINE 25 MG TABLET PO PRN (15:55)
[2020-11-25] MEDS: LEVEMIR (INSULIN DETEMIR) 1 UNITS/0.01ML SC SCH (21:16)
[2020-11-25] MEDS: diphenhydrAMINE 25MG CAP PO PRN (22:46)
[2020-11-26] VITALS (9 sets, daily range): BP systolic 122–160; BP diastolic 61–84
[2020-11-26 05:01] LABS: BASO # 0.1 10^3/uL (0.0-0.2); BASO % 0.8 % (0.0-1.0); EOS # 0.3 10^3/uL (0.0-0.5); EOS % 3.8 % (0.0-3.0); HEMATOCRIT 39.4 % (36.0-47.0); HEMOGLOBIN 12.6 g/dl (12.0-15.5); LYMPH # 1.6 10^3/uL (1.5-5.0); MEAN CORPUSCULAR VOLUME 93.8 fl (80.0-96.0); MONO # 0.8 10^3/uL (0.0-0.8); MONO % 10.4 % (2.0-8.0); NEUTROPHILS # 5.1 10^3/uL (1.5-8.5); NEUTROPHILS % 64.6 % (36.0-66.0); PLATELET COUNT, AUTOMATED 309 10^3/uL (150-450); WHITE BLOOD COUNT 7.9 10^3/uL (4.0-10.0)
[2020-11-26] MEDS: FIORICET TAB PO PRN ×3 (05:13→17:10)
[2020-11-26] MEDS: **NOTE PATIENT COMMENT** MISC XX SCH (05:13)
[2020-11-26 05:14] LABS: CREATININE FOR GFR 1.73 MG/DL (0.55-1.30); GLOMERULAR FILTRATION RATE 30.3 (>39); POTASSIUM SERUM 3.6 MEQ/L (3.5-5.1)
[2020-11-26] MEDS: HumaLOG INSULIN (NovoLOG) PER UNIT SC SCH ×4 (07:30→20:39)
[2020-11-26] MEDS: buPROPion **XL** TABLET 150MG (WELLBUTRIN XL) PO SCH (08:55)
[2020-11-26] MEDS: OMEPRAZOLE 20 MG CAP PO SCH (08:55)
[2020-11-26] MEDS: ATORVASTATIN 20 MG TAB PO SCH (08:55)
[2020-11-26] MEDS: HEPARIN SOD (PORCINE) 5000UNITS/ML 1ML VIAL/SYRINGE SC SCH ×2 (08:55→20:57)
[2020-11-26] MEDS: ASPIRIN 81MG ENTERIC TABLET PO SCH (08:56)
[2020-11-26] MEDS: CARVedilol 12.5 MG TAB PO SCH (08:56)
[2020-11-26] MEDS: amLODIPine 5 MG TAB PO SCH (08:57)
[2020-11-26] MEDS: SERTRALINE HCL 50 MG TAB PO SCH (08:57)
[2020-11-26] MEDS: CLOPIDOGREL 75 MG TAB PO SCH (08:57)
[2020-11-26] MEDS: ACETAMINOPHEN TAB 650MG DOSE (2X325MG) PO PRN (09:07)
--- NOTE | 2020-11-26 10:11 | ECHO ---
ECHOCARDIOGRAM DATE OF PROCEDURE: 11/22/2020 Age: Gender: Height: 65 inches Weight: 190 pounds REFERRING PHYSICIAN: Lou Goldman INDICATION: Acute stroke. 2D MEASUREMENTS: Aortic root 3.3 cm Proximal ascending aorta 3.1 cm Left atrium 4.6 cm Ventricular septum 1.22 cm Posterior wall 1.22 cm Left ventricle diastole 4.8 cm Left ventricle systole 3.2 cm Inferior vena cava 2.0 cm DOPPLER MEASUREMENTS: No aortic stenosis No aortic regurgitation Aortic valve velocity 174 cm/s LVOT velocity 119 cm/s No mitral regurgitation No mitral stenosis Mitral E velocity 65.5 cm/s Mitral A velocity 106 cm/s Mitral deceleration time 394 msec Trace tricuspid regurgitation Trace pulmonic regurgitation Pulmonic artery acceleration time 90 msec, consistent with mild pulmonary hypertension MITRAL ANNULAR TISSUE DOPPLER E prime lateral 7.4 cm/s, E prime septal 6.7 cm/s DESCRIPTION: Sinus rhythm and sinus bradycardia with first-degree AV block was observed. No pericardial effusion. Image quality was adequate. This was a 2D, M mode, color flow Doppler, and pulsed wave Doppler examination and included mitral annular tissue Doppler. CONCLUSIONS: 1. Very mild concentric left ventricular hypertrophy. Normal regional LV wall motion and wall thickening. Normal LV systolic function. LVEF 60% by visual estimate. Grade 1 LV diastolic dysfunction (impaired relaxation and filling pattern). 2. Moderate left atrial dilatation. 3. Suggestive of mild elevation of pulmonary artery systolic pressure. 4. Saline bubble study was negative for detection of right to left intracardiac shunting or right to left intrapulmonary shunting. 5. Otherwise normal-appearing echocardiogram Doppler findings.
--- NOTE | 2020-11-26 18:42 | IPNPDOC ---
Date Seen The patient was seen on 11/26/20. Progress Note SUBJECTIVE: Mrs. Deleon is lying in her hospital bed resting with her right hand over her right eye as she has on the past three mornings. She states that her vision has improved since yesterday but is not completely back to where it was before she was admitted to the hospital. She continues to experience a generalized headache that she rates as a 7/10 despite taking Fioricet two hours prior. She was given two tylenol right before I entered the room and she states she did not yet feel any pain relief from the tylenol. She continues to have decreased appetite and had not yet eaten any of the breakfast that was at her bedside. She admits to feeling continued dizziness when lying down in bed and upon ambulation and denies feeling any relief from the meclizine that was given to her in the last 24 hours. She has an oxygen saturation of 94% on room air. She denies chest pain, nausea, vomiting, shortness of breath, palpitations, or dysuria. OBJECTIVE PHYSICAL EXAMINATION: VITAL SIGNS: Please see below. General: Patient is alert and oriented x 3. She appear tired but is speaking in full sentences. Eyes: EOMI, PERRLA Vision: Patient unable to stratify which visual luna she can see but states her vision is better today. ENT: No uvula visualized (had surgically removed as a child), trachea midline, no lymphadenopathy or thyromegaly Cardiovascular: S1, S2, normal rhythm, soft systolic murmur appreciated in left 2nd intercostal space. No gallops appreciated. Respiratory: Chest is clear to auscultation bilaterally in upper and lower lobes. No rhonchi, wheezes or rubs. Abdomen: Soft, bowel sounds positive, no bruits. Nontender on palpation. Extremities: No edema appreciated in lower extremities bilaterally Central nervous system (PLACEMENT MANAGER): Cranial nerves III-XII grossly intact except cranial nerve 8 which is diminished in left ear. Motor: 5/5 muscle strength and full sensation in all extremities. LABORATORY DATA, IMAGING STUDIES, MICROBIOLOGY: Please see below. CT Head without contrast 11/22/20: Impression: Small rounded low-density area within the right basal ganglia/thalamus may represent subacute infarction and should be correlated with symptoms. Chronic atrophy and microvascular ischemic changes. No intracranial hemorrhage, extra- axial hemorrhage, or edema/mass effect. Brain MRI w/out contrast 11/22/20:Impression: Focal acute infarcts involving the right thalamus and right medial occipital lobe. Brain MRA w/out contrast 11/22/20: Impression: No stenosis or occlusion. Chest Xray 11/22/20: Impression: Chronic appearing changes as described above including possible chronic pulmonary vascular congestion. Carotid duplex 11/22/20: Impression: Narrowing in the left carotid artery in the upper end of 50-69% range. Narrowing in the right carotid artery in the lower and of 50-69% range. Chest X-ray 11/23/20: Impression: Stable chronic appearing changes. Cannot exclude mild pulmonary vascular congestion. Head CT without contrast 11/25/20: Impression: Atrophy and microvascular ischemic changes. Stable lacunar infarcts. No acute intracranial hemorrhage, infarction, or mass/mass effect. Echocardiogram: 11/22/20: Very mild concentric left ventricular hypertrophy. Normal regional LV wall motion and wall thickening. Normal LV systolic function. LVEF 60% by visual estimate. Grade 1 LV diastolic dysfunction (impaired relaxation and filling pattern). Moderate left atrial dilatation. Suggestive of mild elevation of pulmonary artery systolic pressure. Saline bubble study was negative for detection of right to left intracardiac shunting or right to left intrapulmonary shunting. DVT prophylaxis ordered?: Yes continue heparin ASSESSMENT AND PLAN: Mrs. 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 PROBLEMS: #Acute stroke -Patient presented with right sided headache and vision loss (left visual luna bilaterally) -Brain MRI showed focal acute infarcts involving the right thalamus and right medial occipital lobe.11/22/20 -Carotid u/s: Narrowing in the left carotid artery in the upper end of 50-69% range. Narrowing in the right carotid artery in the lower and of 50-69% range. -Echocardiogram performed, results as above -Repeat head CT results as above -Continue atorvastatin 80mg and dual antiplatelet therapy (ASA / Plavix) -Neurology continues to be consulted, we appreciate their input - Will have outpatient follow up with Vascular surgery for evaluation of carotid disease -Patient's vision has improved today but is not back to baseline #Hypertensive urgency: -stable BP today 146/68 -currently holding nephrotoxic blood pressure medications: spironolactone, tor semide, and valsartan. -Goal systolic blood pressure is below 160 #Headache -Likely secondary to hypertension -Patient rated as 7/10 this morning -c/w fioricet and tylenol PRN -Patient stated that fioricet did not decrease her headache this AM #VAHID -creatinine increased from 1.57 to 1.73 -Patient was given nephrotoxic drugs yesterday, This will be the first full day they are held. -Will reevaluate BMP in the AM -Will consider starting the patient on IV fluids if kidney function does not improve #Dizziness -Upon ambulation -Head CT results as above -likely due to vertigo -Gave patient meclizine with little improvement in symptoms -Continuing to consult neurology on this patient. #Urinary urgency -Patient denies urinary urgency, suprapubic tenderness, or strong odor today. -No hematuria #Diarrhea -Patient has had 1 soft bm this morning -likely secondary to atorvastatin -The benefits outweight the risk at this point for the patient to continue taking atorvastatin. #Suspected vascular congestion -Seen on chest x ray -Pro BNP: 3248 11/22 -Patient does not appear to be fluid overloaded clinically -Echocardiogram results pending -Will diurese patient if she become clinically fluid overloaded. #Hypoxia -Patient stable and now breathing on room air -Oxygen saturation 94% #Diabetes mellitus type 2: Insulin dependent - continue on sliding scale insulin - She is on 22 units of insulin at home. - Will continue to monitor glucose levels -Hypoglycemic parameters in place. #Coronary artery disease s/p stenting: - Will continue Plavix 75 mg. -continue patient on ASA 81mg #Diastolic CHF -History of acute on chronic diastolic CHF in 2019 -CXR 11/22/20: Chronic appearing changes as described above including possible chronic pulmonary vascular congestion. #GERD: - Continue omeprazole 40 mg by mouth. #Depression -Continue wellbutrin and sertraline #DVT prophylaxis: -Heparin DISPOSITION: We will continue to monitor this patient's kidney function and hold her nephrotoxic medications. I plan on discussing this patient's case with Neurology to touch base on her continued headache and dizziness. Mrs. Deleon would benefit from receiving rehabilitation once she clinically improves. GME ATTESTATION My faculty preceptor for this patient encounter was physically present during the encounter and was fully available. All aspects of the patient interview, examination, medical decision making process, and medical care plan development were reviewed and approved by the faculty preceptor. The faculty preceptor is aware and concurs with the plan as stated in the body of this note and will attest to such by his/her cosignature. Attending Attestation: I saw and evaluated patient. I agree with the finding and plan of care as documented in the residents note. VS, I&O, 24H, Fishbone Vital Signs/I&O Vital Signs Date Time Temp Pulse Resp B/P (MAP) Pulse Ox O2 Delivery O2 Flow Rate FiO2 11/26/20 17:10 18 Room Air 11/26/20 15:27 97.2 64 122/72 (89) 93 11/23/20 16:00 2.0 I&O- Last 24 Hours up to 6 AM 11/26/20 06:00 Intake Total 1080 ml Output Total 1151 ml Balance -71 ml Laboratory Data 24H LABS Laboratory Tests 2 11/25/20 19:40: Bedside Glucose (Misc Panel) 170H 11/26/20 04:41: Immature Granulocyte % (Auto) 0.4, Neutrophils (%) (Auto) 64.6, Lymphocytes (%) (Auto) 20.0L, Monocytes (%) (Auto) 10.4H, Eosinophils (%) (Auto) 3.8H, Basophils (%) (Auto) 0.8, Neutrophils # (Auto) 5.1, Lymphocytes # (Auto) 1.6, Monocytes # (Auto) 0.8, Eosinophils # (Auto) 0.3, Basophils # (Auto) 0.1, Nucleated Red Blood Cells % (auto) 0.0, Anion Gap 8, Glomerular Filtration Rate 30.3L, Calcium Level 10.0 11/26/20 17:21: Bedside Glucose (Misc Panel) 151H CBC/BMP Laboratory Tests 11/26/20 04:41 Microbiology Microbiology 11/23/20 Urine Culture - Final, Complete AJAY RUSSO DO Nov 26, 2020 18:42 MICHELE PARRA MD Nov 27, 2020 06:48
[2020-11-26] MEDS ORDERED: NS 0.45% 1,000 ML IV SCH (20:30)
[2020-11-26] MEDS ORDERED: NYSTATIN OINTMENT 15 GM TOP PRN (20:50)
[2020-11-26] MEDS: LEVEMIR (INSULIN DETEMIR) 1 UNITS/0.01ML SC SCH (20:57)
[2020-11-26] MEDS: diphenhydrAMINE 25MG CAP PO PRN (20:57)
[2020-11-27] VITALS: BP 170/68
--- NOTE | 2020-11-27 01:13 | REPVR ---
PROCEDURE INFORMATION: Exam: US Retroperitoneal Limited, Kidneys Exam date and time: 11/26/2020 11:39 PM Age: 80 years old Clinical indication: Condition or disease; Kidney or ureter condition; Acute renal insufficiency; Additional info: Dustin TECHNIQUE: Imaging protocol: Real-time ultrasound of the retroperitoneum with image documentation. Examination was focused on the kidneys. COMPARISON: RENAL US 08/09/2020 7:51 AM FINDINGS: Right kidney: Right kidney measures 8.5 x 3.2 x 4.1 cm. Right kidney is atrophic. There is increased echogenicity of the right kidney with cortical thinning. No right-sided hydronephrosis. Left kidney: Left kidney measures 13.6 x 5.3 x 7.1 cm. No left-sided hydronephrosis. Corticomedullary differentiation is preserved. Bladder: No focal abnormality involving the urinary bladder. IMPRESSION: 1. No hydronephrosis. 2. Chronic right renal disease. Electronically signed by: Fantasma Lux On 11/27/2020 01:12:16 AM
[2020-11-27 04:00] VITALS: BP 160/60
[2020-11-27] MEDS: **NOTE PATIENT COMMENT** MISC XX SCH (04:34)
[2020-11-27] MEDS: FIORICET TAB PO PRN ×3 (04:38→16:46)
[2020-11-27 06:01] LABS: BASO # 0.1 10^3/uL (0.0-0.2); BASO % 0.6 % (0.0-1.0); EOS # 0.4 10^3/uL (0.0-0.5); HEMATOCRIT 39.9 % (36.0-47.0); HEMOGLOBIN 12.5 g/dl (12.0-15.5); LYMPH # 1.4 10^3/uL (1.5-5.0); LYMPH % 17.2 % (24.0-44.0); MEAN CORPUSCULAR HGB CONC 31.3 g/dl (32.0-36.5); MEAN CORPUSCULAR VOLUME 95.9 fl (80.0-96.0); MONO # 0.9 10^3/uL (0.0-0.8); MONO % 10.4 % (2.0-8.0); NEUTROPHILS # 5.4 10^3/uL (1.5-8.5); NEUTROPHILS % 66.4 % (36.0-66.0); PLATELET COUNT, AUTOMATED 296 10^3/uL (150-450); RED BLOOD COUNT 4.16 10^6/uL (4.00-5.40); WHITE BLOOD COUNT 8.2 10^3/uL (4.0-10.0)
[2020-11-27 06:22] LABS: CALCIUM LEVEL 9.8 MG/DL (8.8-10.2); CREATININE FOR GFR 1.47 MG/DL (0.55-1.30); GLOMERULAR FILTRATION RATE 36.6 (>39); POTASSIUM SERUM 3.2 MEQ/L (3.5-5.1)
[2020-11-27] MEDS: HumaLOG INSULIN (NovoLOG) PER UNIT SC SCH ×4 (07:30→21:00)
[2020-11-27 08:00] VITALS: BP 142/82
[2020-11-27] MEDS ORDERED: POTASSIUM CHLORIDE 10 MEQ SR TABLET PO ONE (08:00)
[2020-11-27 08:25] LABS: MAGNESIUM LEVEL 1.5 MG/DL (1.8-2.4)
--- NOTE | 2020-11-27 08:32 | ECGEPIP ---
[facility] Test Date: 2020-11-27 Pat Name: WEN SCHWAB Department: Room: [place] [address] Gender: Female Checkout Supervisor: ISAK : 1940 Requested By: JOSE RAMON Gipson Order Number: [id number] Reading MD: Balbir Siegel Measurements Intervals [place] Rate: 49 P: 82 DE: 236 QRS: -29 QRSD: 126 T: 102 QT: 454 QTc: 410 Interpretive Statements Sinus bradycardia with marked sinus arrhythmia with 1st degree AV block 2 second pause noted Left ventricular hypertrophy with QRS widening and repolarization abnormality Nonspecific ST-T wave abnormalities Electronically Signed on 11-27-2020 8:32:34 EDT by Balbir Siegel
--- NOTE | 2020-11-27 08:48 | CR ---
CONSULTATION DATE: 11/26/2020 REQUESTING PHYSICIAN: Romel Edwards M.D. REASON FOR CONSULTATION: Acute kidney injury. HISTORY OF PRESENT ILLNESS: Miss Aubree Deleon is a 80-year-old female with a past medical history of grade 1 diastolic congestive heart failure, hypertension, type 2 diabetes, dyslipidemia, coronary artery disease, history of breast cancer and other comorbid conditions mentioned below. The patient has baseline renal function of CKD stage 3 with baseline creatinine of 1.2. She presented to [facility] with decreased vision, frontal headache and high blood pressure. She was found to have acute ischemic stroke. Her blood pressures were controlled over the course of this admission and she was continued on her home diuretic regimen of torsemide and spironolactone and she was also getting her home valsartan. These three medications were all stopped on November 25 (last doses were on November 24) when it was noted that patient's renal function had worsened with creatinine up to 1.5 yesterday and now 1.7 today and renal evaluation was requested in view of worsening renal function. The patient was seen and examined this morning at the bedside. She complains of sensation of head spinning/vertigo and nausea. She feels very dizzy and off balance whenever she tries to move. PAST MEDICAL HISTORY: 1. CKD stage 3, baseline creatinine around 1.2 with known atrophic right kidney. 2. Hypertension. 3. Type 2 diabetes mellitus. 4. Iron deficiency anemia. 5. Diastolic congestive heart failure. 6. Dyslipidemia. 7. Coronary artery disease, status post stenting. 8. Osteoarthritis. 9. Rheumatoid arthritis. 10. GERD. 11. Depression. 12. Takotsubo cardiomyopathy back in 2014. 13. Chronic back pain. 14. 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 PAST SURGICAL HISTORY: 1. Bilateral knee replacement. 2. Hysterectomy. 3. Cystectomy. 4. Bilateral carpal tunnel repair. 5. Right coronary artery drug-eluting stent, 2007. SOCIAL HISTORY: She is . 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 She denies smoking or using tobacco products since 1987. She denies alcohol or drugs. ALLERGIES: STATINS, AMOXICILLIN, BLUE DYE, CLAVULANIC ACID, CODEINE, DULOXETINE, GABAPENTIN. FOR REMAINDER OF ALLERGIES, PLEASE SEE MEDICAL RECORD. FAMILY HISTORY: She reports her mother had kidney problems and she also reports a family history of cardiac disease. REVIEW OF SYSTEMS: Constitutional: She denies fevers or chills. Eyes: She reports diminished visual acuity. HEENT: She reports dizziness and a spinning sensation like vertigo. Cardiac: She denies chest pain or palpitations. Respiratory: She denies shortness of breath or cough. Gastrointestinal: She reports nausea and poor intake. She denies vomiting or diarrhea. Genitourinary: She denies dysuria or hematuria. Musculoskeletal: She denies any acute myalgia, arthralgia or leg swelling. Hematologic: She reports a history of iron deficiency in the past. She denies any easy bleeding. Neurologic: She reports history of stroke. She denies seizure. Endocrine: She reports a history of diabetes. HOME MEDICATIONS: 1. Amlodipine 10 mg daily. 2. Bupropion 300 mg daily. 3. Carvedilol 37.5 mg p.o. b.i.d. 4. Plavix 75 mg p.o. daily. 5. Insulin Ativan 1 mg p.o. q.h.s. 6. Omeprazole 40 mg p.o. daily. 7. Sertraline 150 mg p.o. daily. 8. Spironolactone 25 mg p.o. daily. 9. Torsemide 100 mg p.o. daily. 10. Valsartan 160 mg p.o. daily. PHYSICAL EXAMINATION: Vital signs: Temperature 97.2, pulse 64, respiratory rate 18, blood pressure 122/72, saturating 93-94% on room air. Intake yesterday was one liter. Urine output yesterday was 1.1 liter. Weight on bed scale today is 84.9 kg which is several kg lower than what she was on admission. General: Patient is seen lying in bed, elderly female, awake, alert, but keeps her eyes closed. Tongue is moist. Neck is supple. Jugular veins are not elevated. She is oriented x3. Heart sounds are regular, S1, S2. There is no leg edema. Peripheral pulses are palpable. Lungs show symmetric air entry, no crackle or rale. Abdomen: Soft and nontender. There are bowel sounds. Extremities are negative for edema. She moves all four extremities on command. Skin is warm and dry, normal temperature and turgor. LABORATORY DATA: Sodium 141, potassium 3.6, bicarbonate 26, BUN 39, creatinine 1.7 as compared to 1.2 two days ago. Calcium 10.0. Hemoglobin 12.6, platelets 309. Urinalysis was negative for blood or protein. She had a renal ultrasound done in July, that showed left kidney 13 cm and right kidney atrophic in appearance and 9 cm. INPATIENT MEDICATIONS: 1. I started the patient on half normal saline at 50 mL an hour for one liter only. 2. She is on Fioricet q.6 hourly p.r.n. 3. Tylenol p.r.n. 4. Amlodipine 10 mg p.o. daily. 5. Aspirin 81 mg p.o. daily. 6. Atorvastatin 80 mg p.o. daily. 7. Bupropion 300 mg p.o. daily. 8. Albuterol q.6hourly. 9. Clopidogrel 75 mg p.o. daily. 10. Diphenhydramine p.r.n. 11. Heparin 5000 units subcu q.12 hourly. 12. Insulin. 13. Meclizine p.r.n. 14. Omeprazole 40 mg daily. 15. Her last doses of torsemide, spironolactone and valsartan were all on November 24. PROBLEMS: 1. Acute kidney injury superimposed on CKD stage 3. The patient's baseline creatinine is around 1.2. Renal function was at baseline when she was admitted. Hence, she was continued on her home regimen of torsemide, spironolactone and valsartan. However, the patient has been having poor intake and her daily weights have downtrended. Her diuretics and ARB have all been on hold. The last dose was November 24. Her renal function has worsened likely in view of diuretic and ARB therapy coupled with poor oral intake and I would continue to hold the diuretics. At this time, I am going to give her just one liter of half normal saline at 50 mL an hour. 2. Chronic diastolic congestive heart failure. Echocardiogram noted with grade 1 diastolic dysfunction. The patient's daily weights have downtrended over the course of this admission. She is on daily net negative fluid balance. Her diuretics have been on hold. I would continue to hold them at present and I am going to give her just one liter of half normal saline at a judicious rate of 50 mL an hour and we will keep a close eye on her volume and respiratory status. 3. Hypertension. Blood pressures are very well controlled. She is not suitable for any ELLA or ARB at present because of worsening renal function. Given that she had an acute ischemic stroke, I think goal blood pressure of around 140s, 150s is better than a blood pressure that is in the 120s or 130s. 4. Chronic right renal atrophy. Possible right renal artery stenosis. I will get a renal doppler to check. MTDD
[2020-11-27] MEDS: ASPIRIN 81MG ENTERIC TABLET PO SCH (09:26)
[2020-11-27] MEDS: ATORVASTATIN 20 MG TAB PO SCH (09:26)
[2020-11-27] MEDS: CLOPIDOGREL 75 MG TAB PO SCH (09:26)
[2020-11-27] MEDS: HEPARIN SOD (PORCINE) 5000UNITS/ML 1ML VIAL/SYRINGE SC SCH ×2 (09:26→21:38)
[2020-11-27] MEDS: SERTRALINE HCL 50 MG TAB PO SCH (09:27)
[2020-11-27] MEDS: buPROPion **XL** TABLET 150MG (WELLBUTRIN XL) PO SCH (09:27)
[2020-11-27] MEDS: OMEPRAZOLE 20 MG CAP PO SCH (09:28)
[2020-11-27] MEDS: amLODIPine 5 MG TAB PO SCH (09:29)
[2020-11-27] MEDS: MECLIZINE 25 MG TABLET PO SCH ×2 (10:21→21:37)
[2020-11-27 11:39] LABS: CALCIUM LEVEL 9.7 MG/DL (8.8-10.2); CREATININE FOR GFR 1.63 MG/DL (0.55-1.30); GLOMERULAR FILTRATION RATE 32.5 (>39); POTASSIUM SERUM 3.8 MEQ/L (3.5-5.1)
[2020-11-27 12:00] VITALS: BP 152/85
[2020-11-27] MEDS ORDERED: MAG SULF 1GM/100ML (MAG RUN) 1 GM in IV 1 EA IV ONE (15:00)
[2020-11-27 16:00] VITALS: BP 150/66
--- NOTE | 2020-11-27 18:46 | IPNPDOC ---
Date Seen The patient was seen on 11/27/20. Progress Note SUBJECTIVE: Mrs. Deleon is sitting up in bed eating breakfast when I walked into the room. She states she has an appetite today and has had three soft stools in the last 24 hours. She currently has a headache that she rates as an 8/10. She had one dose of Fioricet early this morning that decreased her headache from a 10/10 to an 8/10. In addition to the headache, she states that she continues to feel dizzy while laying down and with ambulation. She denies tinnitus and states that she feels like she is spinning. Overall, she is tired and plans on resting for the rest of the day. Her oxygen saturation is 95% on room air. Upon discussing the results of her renal ultrasound, she states that she knew one kidney was smaller than the other but had not had further workup on this matter with her PCP. OBJECTIVE PHYSICAL EXAMINATION: VITAL SIGNS: Please see below. General: Patient is alert and oriented x 3. She is tired but eating breakfast comforably Eyes: EOMI, PERRLA Vision: Patient states her vision has improved today ENT: No uvula visualized (had surgically removed as a child), trachea midline, no lymphadenopathy Cardiovascular: S1, S2, normal rhythm, soft systolic murmur appreciated in left 2nd intercostal space. Respiratory: Chest is clear to auscultation bilaterally in upper and lower lobes. No rhonchi, wheezes or rubs. Abdomen: Soft, bowel sounds positive, nontender to light palpation in all four quadrants Extremities: No edema appreciated in lower extremities bilaterally Central nervous system (VETERINARY VIROLOGIST): Cranial nerves III-XII grossly intact, normal strength and sensation throughout LABORATORY DATA, IMAGING STUDIES, MICROBIOLOGY: Please see below. CT Head without contrast 11/22/20: Impression: Small rounded low-density area within the right basal ganglia/thalamus may represent subacute infarction and should be correlated with symptoms. Chronic atrophy and microvascular ischemic changes. No intracranial hemorrhage, extra- axial hemorrhage, or edema/mass effect. Brain MRI w/out contrast 11/22/20:Impression: Focal acute infarcts involving the right thalamus and right medial occipital lobe. Brain MRA w/out contrast 11/22/20: Impression: No stenosis or occlusion. Chest Xray 11/22/20: Impression: Chronic appearing changes as described above including possible chronic pulmonary vascular congestion. Carotid duplex 11/22/20: Impression: Narrowing in the left carotid artery in the upper end of 50-69% range. Narrowing in the right carotid artery in the lower and of 50-69% range. Chest X-ray 11/23/20: Impression: Stable chronic appearing changes. Cannot exclude mild pulmonary vascular congestion. Head CT without contrast 11/25/20: Impression: Atrophy and microvascular ischemic changes. Stable lacunar infarcts. No acute intracranial hemorrhage, infarction, or mass/mass effect. Renal ultrasound 11/26/20: No hydronephrosis. Chronic right renal disease. Echocardiogram: 11/22/20: Very mild concentric left ventricular hypertrophy. Normal regional LV wall motion and wall thickening. Normal LV systolic function. LVEF 60% by visual estimate. Grade 1 LV diastolic dysfunction (impaired relaxation and filling pattern). Moderate left atrial dilatation. Suggestive of mild elevation of pulmonary artery systolic pressure. Saline bubble study was negative for det ection of right to left intracardiac shunting or right to left intrapulmonary shunting. DVT prophylaxis ordered?: Yes continue heparin ASSESSMENT AND PLAN: Mrs. 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 PROBLEMS: Acute stroke -Patient presented with right sided headache and vision loss (left visual luna bilaterally) -Brain MRI showed focal acute infarcts involving the right thalamus and right medial occipital lobe.11/22/20 -Carotid u/s: Narrowing in the left carotid artery in the upper end of 50-69% range. Narrowing in the right carotid artery in the lower and of 50-69% range. -Echocardiogram performed, results as above -Repeat head CT results as above -Continue atorvastatin 80mg and dual antiplatelet therapy (ASA / Plavix) -Neurology continues to be consulted, we appreciate their input -Patient's vision has improved today but is not back to baseline Hypertensive urgency -Goal BP 140-150 systolic -BP today 150/66 -Continue amlodipine -Holding all other bp medications VAHID superimposed on CKD stage 3 -baseline creatinine 1.2 -patient received 1 liter of 0.45 NS overnight -Dr. Travis has been consulted on this patient, we appreciated her input on this patient. -Continuing to hold spironolactone, torsemide, and valsartan #Headache -May be related to recent stroke -We discussed this with Dr. Hale and will start patient on Depakote ER 500 q d -d/c fioricet -If patient is does not experience relief with depakote we will start amitriptyline 10mg #Dizziness -May be related to recent stroke -continue meclizine q 12 hours #Sinus Bradycardia -EKG 11/27/20 with heart rate of 49 at its lowest -2 second pause noted-not a clinical indication for pacemaker placement -We consulted Cardiology and were advised to hold carvedilol -Patient can follow up with cardiology as an outpatient. #Possible right renal atrophy -Renal ultrasound results as above -Dr. Daiz has been consulted on this patient -Dr. Diaz ordered MRA abdomen without contrast to assess for renal artery stenosis #Hypokalemia -Level today 3.2 -supplemented with potassium 40meq -will continue to monitor #Hypomagnesemia -Level today 1.5 -supplemented with magnesium -Ordered repeat level for tomorrow AM #Urinary urgency -Patient denies urinary urgency, suprapubic tenderness, or strong odor today. -No hematuria #Diarrhea -Patient has had 1 soft bm this morning -likely secondary to atorvastatin -The benefits outweight the risk at this point for the patient to continue taking atorvastatin. #Suspected vascular congestion -Seen on chest x ray -Pro BNP: 3248 11/22 -Patient does not appear to be fluid overloaded clinically -Echocardiogram results pending -Will diurese patient if she become clinically fluid overloaded. #Hypoxia -Patient stable and now breathing on room air -Oxygen saturation 94% #Diabetes mellitus type 2: Insulin dependent - continue on sliding scale insulin - She is on 22 units of insulin at home. - Will continue to monitor glucose levels -Hypoglycemic parameters in place. #Coronary artery disease s/p stenting: - Will continue Plavix 75 mg. -continue patient on ASA 81mg #Diastolic CHF -History of acute on chronic diastolic CHF in 2019 -CXR 11/22/20: Chronic appearing changes as described above including possible chronic pulmonary vascular congestion. #GERD: - Continue omeprazole 40 mg by mouth. #Depression -Continue wellbutrin and sertraline #DVT prophylaxis: -Heparin DISPOSITION: This patient will need to be discharged to rehab. Will continue to monitor for clinical improvement of renal function as well as pain management of headache. We appreciate Cardiology, Nephrology, and Neurology for their input. GME ATTESTATION My faculty preceptor for this patient encounter was physically present during the encounter and was fully available. All aspects of the patient interview, e xamination, medical decision making process, and medical care plan development were reviewed and approved by the faculty preceptor. The faculty preceptor is aware and concurs with the plan as stated in the body of this note and will attest to such by his/her cosignature. Attending Attestation: I saw and evaluated patient. I agree with the findings and plan of care as documented in the residents note. VS, I&O, 24H, Fishbone Vital Signs/I&O Vital Signs Date Time Temp Pulse Resp B/P (MAP) Pulse Ox O2 Delivery O2 Flow Rate FiO2 11/27/20 16:46 20 11/27/20 16:00 96.5 61 150/66 (94) 95 Nasal Cannula 2.0 I&O- Last 24 Hours up to 6 AM 11/27/20 06:00 Intake Total 360 ml Output Total 650 ml Balance -290 ml Laboratory Data 24H LABS Laboratory Tests 2 11/26/20 19:48: Bedside Glucose (Misc Panel) 110 11/27/20 05:13: Immature Granulocyte % (Auto) 0.4, Neutrophils (%) (Auto) 66.4H, Lymphocytes (%) (Auto) 17.2L, Monocytes (%) (Auto) 10.4H, Eosinophils (%) (Auto) 5.0H, Basophils (%) (Auto) 0.6, Neutrophils # (Auto) 5.4, Lymphocytes # (Auto) 1.4L, Monocytes # (Auto) 0.9H, Eosinophils # (Auto) 0.4, Basophils # (Auto) 0.1, Nucleated Red Blood Cells % (auto) 0.0, Anion Gap 9, Glomerular Filtration Rate 36.6L, Calcium Level 9.8, Magnesium Level 1.5L 11/27/20 10:55: Anion Gap 7L, Glomerular Filtration Rate 32.5L, Calcium Level 9.7 CBC/BMP Laboratory Tests 11/27/20 05:13 11/27/20 10:55 Microbiology Microbiology 11/23/20 Urine Culture - Final, Complete AJAY RUSSO DO Nov 27, 2020 18:46 MICHELE PARRA MD Nov 28, 2020 06:23
[2020-11-27 20:00] VITALS: BP 171/72
--- NOTE | 2020-11-27 20:15 | IPN ---
PROGRESS NOTE DATE: 11/27/2020 SUBJECTIVE: Patient was seen and examined this morning at the bedside. She continues to keep her eyes closed during our interactions and tells me that she feels lightheaded and dizzy. PHYSICAL EXAMINATION: VITAL SIGNS: Temperature 97.0, pulse 62, respiratory rate 20, blood pressure 160/60, saturating 95% on room air. INTAKE/OUTPUT: Intake yesterday was 360. Urine output yesterday was 650. Weight in the bed scale today is not recorded. GENERAL: Patient is seen lying flat in bed, elderly female, keeping her eyes closed during our encounter. Appears fatigued, but in no acute distress. HEENT: Tongue is moist. Neck is supple. Jugular veins are not elevated. HEART: Heart sounds are mildly bradycardic. There is no leg edema. LUNGS: Show symmetric air entry. No crackle or rale. ABDOMEN: Soft and nontender. EXTREMITIES: There are healed old scars on both knees. There is no leg edema. NEUROLOGIC: She is oriented and moves all four extremities on command. LABORATORY DATA: White count 8.2, hemoglobin 12.5, platelets 296,000. Sodium 142, potassium 3.2, bicarbonate 24, BUN 37, creatinine 1.4. Magnesium 1.5. IMAGING: Renal ultrasound done yesterday showed significant discrepancy in kidney sizes; right kidney is 8.5 cm and atrophic and left kidney is 13.6 cm with good cortical medullary differentiation. INPATIENT MEDICATIONS: She received just 1 liter of half normal saline and fluids were stopped. She is getting magnesium repletion. I note she was started on Fioricet p.r.n. headache. She was also started on Meclizine yesterday. She got a dose of potassium chloride today. PROBLEMS: 1. Acute kidney injury superimposed on CKD stage 3: Baseline creatinine is around 1.2. Patient has atrophy of the right kidney, in fact her left kidney is 5 cm bigger than her right kidney. She possibly has right renal artery stenosis; see discussion below. I would continue to hold her Valsartan at this time. She received 1 liter of half normal saline and I.V. fluids have been stopped. Renal function looks better than yesterday. 2. Chronic diastolic congestive heart failure: Echocardiogram noted with grade 1 diastolic dysfunction. Her diuretics have been on hold for the past 48 hours (last dosed on November 24). Nursing staff is recording poor oral intake. We will keep an eye on her volume status and resume diuretic when indicated. 3. Right renal atrophy: She has had two non-diagnostic renal Dopplers in the past that could not confirm or deny renal artery stenosis. She might have a right renal artery stenosis given the atrophy of the right kidney and her hypertension. I will get a non-contrast MRA of the renal arteries. 4. Hypertension: Systolic today has been mostly 130's to 150's which is appropriate. She continues on Amlodipine, Clonidine. Her diuretics and Valsartan remain on hold. 5. Hypokalemia: She got potassium supplementation. 6. Hypomagnesemia: She is getting magnesium supplementation.
--- NOTE | 2020-11-27 21:24 | REPVR ---
PROCEDURE INFORMATION: Exam: MRA Abdomen With or Without Contrast Exam date and time: 11/27/2020 3:57 PM Age: 80 years old Clinical indication: Abnormal findings; Other: RT renal atrophy; Additional info: RT renal atrophy. Suspect right omayra. Non-contrast mra. TECHNIQUE: Imaging protocol: Magnetic resonance angiography of the abdomen with or without contrast. COMPARISON: MRI ABD W/O FOL WITH 04/02/2020 4:45 PM FINDINGS: Aorta: Unremarkable. No aneurysm. No dissection. No hemodynamically significant stenosis. Celiac trunk and mesenteric arteries: Unremarkable. No hemodynamically significant stenosis. No occlusion. Renal arteries: Unremarkable. No hemodynamically significant stenosis. No occlusion. Gallbladder and bile ducts: There has been a cholecystectomy. Evaluation of the renal arteries is unremarkable although the origin of the right renal artery is not well demonstrated due to artifact. The right renal artery appears to be reduced in caliber in comparison to the left. There is no evidence of poststenotic dilatation. Bones/joints: The spine demonstrates moderate degenerative changes. Sagittal dimension of the right kidney is 9.4 cm. Sagittal dimension of the left kidney is 8.7 cm. There is diffuse parenchymal thinning on the right most pronounced in the mid and upper pole. Other findings: Dextroscoliosis. Redemonstration of bilateral renal cysts measuring less than 1 cm. No complex features. IMPRESSION: 1. There has been a cholecystectomy. 2. Redemonstration of bilateral renal cysts measuring less than 1 cm. No complex features. 3. Sagittal dimension of the right kidney is 9.4 cm. Sagittal dimension of the left kidney is 8.7 cm. There is diffuse parenchymal thinning on the right most pronounced in the mid and upper pole. 4. Evaluation of the renal arteries is unremarkable although the origin of the right renal artery is not well demonstrated due to artifact. The right renal artery appears to be reduced in caliber in comparison to the left. There is no evidence of poststenotic dilatation. Electronically signed by: Vignesh He On 11/27/2020 21:23:52 PM
[2020-11-27] MEDS: LEVEMIR (INSULIN DETEMIR) 1 UNITS/0.01ML SC SCH (21:39)
[2020-11-27] MEDS: ACETAMINOPHEN TAB 650MG DOSE (2X325MG) PO PRN (21:43)
[2020-11-27] MEDS: diphenhydrAMINE 25MG CAP PO PRN (22:29)
[2020-11-28] VITALS (16 sets, daily range): BP systolic 150–178; BP diastolic 68–80; O2SAT 83–96
[2020-11-28] MEDS: **NOTE PATIENT COMMENT** MISC XX SCH (05:48)
[2020-11-28] MEDS: ACETAMINOPHEN TAB 650MG DOSE (2X325MG) PO PRN ×2 (05:54→13:39)
[2020-11-28 06:19] LABS: BASO # 0.1 10^3/uL (0.0-0.2); BASO % 0.6 % (0.0-1.0); EOS # 0.4 10^3/uL (0.0-0.5); EOS % 4.9 % (0.0-3.0); HEMATOCRIT 39.3 % (36.0-47.0); HEMOGLOBIN 12.3 g/dl (12.0-15.5); LYMPH # 1.2 10^3/uL (1.5-5.0); LYMPH % 15.3 % (24.0-44.0); MEAN CORPUSCULAR HEMOGLOBIN 29.9 pg (27.0-33.0); MEAN CORPUSCULAR HGB CONC 31.3 g/dl (32.0-36.5); MEAN CORPUSCULAR VOLUME 95.4 fl (80.0-96.0); MONO # 0.8 10^3/uL (0.0-0.8); MONO % 9.5 % (2.0-8.0); NEUTROPHILS # 5.5 10^3/uL (1.5-8.5); NEUTROPHILS % 69.2 % (36.0-66.0); PLATELET COUNT, AUTOMATED 292 10^3/uL (150-450); RED BLOOD COUNT 4.12 10^6/uL (4.00-5.40)
[2020-11-28 06:44] LABS: CALCIUM LEVEL 10.1 MG/DL (8.8-10.2); CREATININE FOR GFR 1.16 MG/DL (0.55-1.30); GLOMERULAR FILTRATION RATE 48.1 (>39); MAGNESIUM LEVEL 1.8 MG/DL (1.8-2.4); POTASSIUM SERUM 3.7 MEQ/L (3.5-5.1)
[2020-11-28] MEDS: HumaLOG INSULIN (NovoLOG) PER UNIT SC SCH ×4 (07:10→20:37)
--- NOTE | 2020-11-28 07:57 | REP ---
INDICATION: eval CHF. COMPARISON: Comparison portable chest x-ray November 23, 2020. TECHNIQUE: Portable upright AP chest radiograph. FINDINGS: EKG monitoring electrodes overlie the chest. There are clips in the right upper quadrant. Thoracic aorta is somewhat tortuous. Cardiomegaly is again observed. These findings are unchanged. There is minimal linear platelike atelectasis in the left base. Lung luna are otherwise clear. Pulmonary vasculature is not increased.. IMPRESSION: Cardiomegaly persists. Minimal linear platelike atelectasis left base. Otherwise no active disease.. <Electronically signed by Austin Joaquin > 11/28/20 [id number]
[2020-11-28] MEDS: ATORVASTATIN 20 MG TAB PO SCH (08:33)
[2020-11-28] MEDS: HEPARIN SOD (PORCINE) 5000UNITS/ML 1ML VIAL/SYRINGE SC SCH ×2 (08:33→21:39)
[2020-11-28] MEDS: ASPIRIN 81MG ENTERIC TABLET PO SCH (08:34)
[2020-11-28] MEDS: VALSARTAN 80 MG TAB (DIOVAN) PO SCH (08:34)
[2020-11-28] MEDS: SERTRALINE HCL 50 MG TAB PO SCH (08:34)
[2020-11-28] MEDS: CLOPIDOGREL 75 MG TAB PO SCH (08:34)
[2020-11-28] MEDS: amLODIPine 5 MG TAB PO SCH (08:34)
[2020-11-28] MEDS: buPROPion **XL** TABLET 150MG (WELLBUTRIN XL) PO SCH (08:34)
[2020-11-28] MEDS: MECLIZINE 25 MG TABLET PO SCH ×2 (08:35→21:39)
[2020-11-28] MEDS: SPIRONOLACTONE 25 MG TAB PO SCH (08:35)
[2020-11-28] MEDS: OMEPRAZOLE 20 MG CAP PO SCH (08:35)
[2020-11-28] MEDS: DIVALPROEX 500MG *ER* TAB PO SCH (08:35)
[2020-11-28] MEDS ORDERED: TORSEMIDE (DEMADEX) 50 MG PER 1/2 TAB PO SCH (09:00)
--- NOTE | 2020-11-28 12:58 | IPN ---
PROGRESS NOTE DATE: 11/28/2020 SUBJECTIVE: The patient is seen and examined this morning at the bedside. She complains of nausea. Her blood pressures have crept up, systolic has now been about 150s to 170s. The hold fell off her torsemide, Spironolactone, and valsartan and she got a dose of each of them today. She is still feeling nauseous. Her laboratory studies show renal function has recovered to baseline with creatinine 1.1 today. OBJECTIVE: VITAL SIGNS: Temperature 96.4, pulse 58, respiratory rate 18, blood pressure 178/80, saturating 97% on room air. INTAKE AND OUTPUT: Intake yesterday was 740 mL. Urine output was not fully recorded. Weight on the bed scale today is 85.3 kg. GENERAL: The patient is seen sitting out of bed to the chair. Elderly female in no distress. HEENT: Tongue is moist. NECK: Supple. Jugular veins are not elevated. HEART: Sounds are mildly bradycardic. There is no leg edema. Peripheral pulses are palpable. LUNGS: Show symmetric air entry. No crackles or rales. She is comfortable on room air. ABDOMEN: Soft and nontender. EXTREMITIES: Show healed vertical scars on both knees. There is no leg edema. NEUROLOGIC: She is oriented and moves all four extremities on command. LABORATORY DATA: Sodium 142, potassium 3.7, BUN 25, creatinine 1.1, bicarbonate 27. Magnesium 1.8. BNP 800. Hemoglobin 12.3. IMAGING DATA: Chest x-ray done this morning shows no signs of any effusions. No edema. Noncontrast MRA of the kidneys did not show any renal artery stenosis. INPATIENT MEDICATIONS: She received a dose of valsartan, torsemide, and Spironolactone all today. She also received a dose of Depakote 500 mg daily. Remainder of medicines are unchanged as compared to yesterday. PROBLEMS: 1. Acute kidney injury superimposed on chronic kidney disease (CKD) stage III. Her renal function has recovered to baseline. Creatinine is 1.1 today. She has known atrophy of the right kidney. Her noncontrast MRA of the renal artery did not demonstrate any right renal artery stenosis, however. She did get a dose of valsartan today, but I am stopping future doses because of risk of recurrent acute kidney injury. She is back on diuretics today as well. Her volume status is well-controlled. 2. Chronic diastolic congestive heart failure. Her BNP has down trended. Her lung imaging shows no sign of effusion nor edema. She is having poor oral intake because of nausea. Her diuretics were held for several days. Today, she was resumed on diuretics. She got a dose of both torsemide and Spironolactone, but the torsemide dose was cut down to 50 mg once daily. We will see how her renal function does tomorrow. 3. Right renal atrophy. The patient has had two nondiagnostic renal Dopplers in the past and she had a limited noncontrast MRA of the renal artery that also did not show any renal artery stenosis. 4. Hypertension. Blood pressures have crept up. Systolic has been 150s to 170s. She is on amlodipine and Clonidine. She also got a dose of valsartan and combination diuretic (torsemide and Spironolactone) today. I am going to hold valsartan going forward. 5. Hypomagnesemia. She got magnesium supplementation.
[2020-11-28] MEDS: NITROGLYCERIN 0.2 MG/HR PATCH TD SCH (13:39)
--- NOTE | 2020-11-28 18:25 | IPNPDOC ---
Date Seen The patient was seen on 11/28/20. Progress Note SUBJECTIVE: Mrs. Deleon is lying comfortably in bed awaiting a bowl of cereal for breakfast. She states that she is feeling better this morning and notices much improvement in her dizziness which no longer occurs with ambulation. She denies having a sensation of spinning and only occasionally feels dizzy while laying in bed. Her headache is "tolerable" and she rates it as a 6/10. She was able to eat a large meal for dinner last night that consisted of turkey and mashed potatoes without having any episodes of vomiting or diarrhea. She did become bradycardic overnight according to the nurse and her heart rate dropped to 39 at its lowest despite her being asymptomatic. While I examined her today her heart rate dropped into the upper 40's and a few PVC's were noted on telemetry. She denies chest pain, palpitations, shortness of breath, vomiting, or diarrhea. OBJECTIVE PHYSICAL EXAMINATION: VITAL SIGNS: Please see below. General: Patient is alert and oriented x 3. She appears to be in better spirits today Eyes: EOMI, PERRLA Vision: Patient states she has 90% of her vision back ENT: No uvula visualized (had surgically removed as a child), trachea midline, no lymphadenopathy Cardiovascular: S1, S2, normal rhythm, soft systolic murmur appreciated in left 2nd intercostal space. Respiratory: Crackles heard in lower bases. No wheezes or rhonchi noted. Abdomen: Soft, bowel sounds positive, slight tenderness to palpation suprapubically (patient had to urinate). Extremities: No edema noted in bilateral legs Central nervous system ([employer]): Cranial nerves III-XII grossly intact, normal strength and sensation throughout LABORATORY DATA, IMAGING STUDIES, MICROBIOLOGY: Please see below. MRA abdomen without contrast 11/27/20: There has been a cholecystectomy. Redemonstration of bilateral renal cysts measuring less than 1 cm. No complex features. Sagittal dimension of the right kidney is 9.4 cm. Sagittal dimension of the left kidney is 8.7 cm. There is diffuse parenchymal thinning on the right most pronounced in the mid and upper pole. Evaluation of the renal arteries is unremarkable although the origin of the right renal artery is not well demonstrated due to artifact. The right renal artery appears to be reduced in caliber in comparison to the left. There is no evidence of poststenotic dilatation. Chest x-ray 11/28/20: Cardiomegaly persists. Minimal linear platelike atelectasis left base. Otherwise no active disease. Echocardiogram: 11/22/20: Very mild concentric left ventricular hypertrophy. Normal regional LV wall motion and wall thickening. Normal LV systolic function. LVEF 60% by visual estimate. Grade 1 LV diastolic dysfunction (impaired relaxation and filling pattern). Moderate left atrial dilatation. Suggestive of mild elevation of pulmonary artery systolic pressure. Saline bubble study was negative for detection of right to left intracardiac shunting or right to left intrapulmonary shunting. DVT prophylaxis ordered?: Yes, continue heparin ASSESSMENT AND PLAN: Mrs. 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 PROBLEMS: #Acute stroke -Patient presented with right sided headache and vision loss (left visual luna bilaterally) -Brain MRI showed focal acute infarcts involving the right thalamus and right medial occipital lobe.11/22/20 -Carotid u/s: Narrowing in the left carotid artery in the upper end of 50-69% range. Narrowing in the right carotid artery in the lower and of 50-69% range. -Continue atorvastatin 80mg and dual antiplatelet therapy (ASA / Plavix) -Neurology continues to be consulted, we appreciate their input -Patient's states her vision is restored to 90% of baseline -Likely the cause of patient's dizziness-per neurology #Hypertensive urgency -Goal BP 140-150 systolic -Systolic bp today while I evaluated her was 190+ systolic -Continue amlodipine 10mg -Started patient on nitroglycerin 0.2 patch with BP parameters to hold if sy stolic blood pressure is less than 120. -Holding all other blood pressure medications at this time. #VAHID superimposed on CKD stage 3 -Patient creatinine has returned to baseline -Dr. Travis has been consulted on this patient, we appreciated her input on this patient. -Continuing to hold spironolactone, torsemide, and valsartan. Patient was given one dose of each this AM as the hold had . -Will review BUN and creatinine in the AM. #Headache -continue Depakote ER 500 q d-per Dr. Hale -Patient rates her headache as 6/10 and tolerable -If patient is does not experience relief with depakote we will start amitriptyline 10mg #Dizziness -May be related to recent stroke -continue meclizine q 12 hours -Patient states her dizziness is much improved today #Sinus Bradycardia -Overnight bradycardia with lowest HR of 39bpm -Patient is asymptomatic -2 second pause noted-not a clinical indication for pacemaker placement -We consulted Cardiology and were advised to hold carvedilol -Patient can follow up with cardiology as an outpatient. #Possible right renal atrophy -Renal ultrasound results as above -Dr. Diaz has been consulted on this patient -MRA abdomen results: patient does not have renal artery stenosis #Hypokalemia -Level today 3.7 -stable #Hypomagnesemia -Level today 1.8 -stable #Urinary urgency -Patient denies urinary urgency, suprapubic tenderness, or strong odor today. -No hematuria #Diarrhea -resolved -likely secondary to atorvastatin -The benefits outweight the risk at this point for the patient to continue taking atorvastatin. #Suspected vascular congestion -Seen on chest x ray -Pro BNP: 3248 11/22 -Patient does not appear to be fluid overloaded clinically -Echocardiogram results pending -Will diurese patient if she become clinically fluid overloaded. #Hypoxia -Patient breathing on room air -Oxygen saturation 95% #Diabetes mellitus type 2: Insulin dependent - continue on sliding scale insulin - She is on 22 units of insulin at home. - Will continue to monitor glucose levels -Hypoglycemic parameters in place. #Coronary artery disease s/p stenting: - Will continue Plavix 75 mg. -continue patient on ASA 81mg #Diastolic CHF -History of acute on chronic diastolic CHF in 2019 -CXR 11/22/20: Chronic appearing changes as described above including possible chronic pulmonary vascular congestion. -CXR results from 11/28 as above #GERD: - Continue omeprazole 40 mg by mouth. #Depression -Continue wellbutrin and sertraline #DVT prophylaxis: -Heparin DISPOSITION: Patient has clinically improved today. Will review labs tomorrow AM. Put in a consult for ARU screen. Patient will likely be discharged to ARU in the next day or two following. Will discuss pacemaker placement again with Dr. Harding due to the patient's continued bradycardia despite holding her Coreg. Nephrology, Cardiology, and Neurology are onboard for this patient and we appreciate their input. GME ATTESTATION My faculty preceptor for this patient encounter was physically present during the encounter and was fully available. All aspects of the patient interview, examination, medical decision making process, and medical care plan development were reviewed and approved by the faculty preceptor. The faculty preceptor is aware and concurs with the plan as stated in the body of this note and will attest to such by his/her cosignature. Attending Attestation: I saw and evaluated patient. I agree with the findings and plan of care as documented in the residents note. VS, I&O, 24H, Fishbone Vital Signs/I&O Vital Signs Date Time Temp Pulse Resp B/P (MAP) Pulse Ox O2 Delivery O2 Flow Rate FiO2 11/28/20 17:00 93 Room Air 11/28/20 16:00 97.3 68 18 158/70 11/27/20 16:00 2.0 I&O- Last 24 Hours up to 6 AM 11/28/20 06:00 Intake Total 980 ml Output Total 900 ml Balance 80 ml Laboratory Data 24H LABS Laboratory Tests 2 11/28/20 05:42: Anion Gap 5L, Glomerular Filtration Rate 48.1, Calcium Level 10.1, Magnesium Level 1.8, GF-Bug-I-Type Natriuretic Peptide 807H 11/28/20 05:43: Immature Granulocyte % (Auto) 0.5, Neutrophils (%) (Auto) 69.2H, Lymphocytes (%) (Auto) 15.3L, Monocytes (%) (Auto) 9.5H, Eosinophils (%) (Auto) 4.9H, Basophils (%) (Auto) 0.6, Neutrophils # (Auto) 5.5, Lymphocytes # (Auto) 1.2L, Monocytes # (Auto) 0.8, Eosinophils # (Auto) 0.4, Basophils # (Auto) 0.1, Nucleated Red Blood Cells % (auto) 0.0 11/28/20 08:31: Bedside Glucose (Misc Panel) 145H 11/28/20 11:26: Bedside Glucose (Misc Panel) 157H 11/28/20 16:30: Bedside Glucose (Misc Panel) 114H CBC/BMP Laboratory Tests 11/28/20 05:42 11/28/20 05:43 Microbiology Microbiology 11/23/20 Urine Culture - Final, Complete AJAY RUSSO DO Nov 28, 2020 18:25 MICHELE PARRA MD Nov 30, 2020 06:28
[2020-11-28] MEDS ORDERED: **NOTE PATIENT COMMENT** MISC XX SCH (21:00)
[2020-11-28] MEDS: LEVEMIR (INSULIN DETEMIR) 1 UNITS/0.01ML SC SCH (21:39)
[2020-11-29] VITALS: BP 177/74
[2020-11-29] MEDS: diphenhydrAMINE 25MG CAP PO PRN (00:21)
[2020-11-29] MEDS: ACETAMINOPHEN TAB 650MG DOSE (2X325MG) PO PRN ×3 (01:17→11:50)
[2020-11-29 04:00] VITALS: BP 157/71
[2020-11-29 04:35] LABS: BASO # 0.1 10^3/uL (0.0-0.2); BASO % 0.6 % (0.0-1.0); EOS # 0.4 10^3/uL (0.0-0.5); HEMATOCRIT 37.9 % (36.0-47.0); LYMPH # 1.2 10^3/uL (1.5-5.0); LYMPH % 14.2 % (24.0-44.0); MEAN CORPUSCULAR HEMOGLOBIN 30.1 pg (27.0-33.0); MEAN CORPUSCULAR HGB CONC 31.7 g/dl (32.0-36.5); MONO # 0.8 10^3/uL (0.0-0.8); MONO % 9.7 % (2.0-8.0); NEUTROPHILS # 6.2 10^3/uL (1.5-8.5); NEUTROPHILS % 71.2 % (36.0-66.0); PLATELET COUNT, AUTOMATED 288 10^3/uL (150-450); RED BLOOD COUNT 3.99 10^6/uL (4.00-5.40); WHITE BLOOD COUNT 8.7 10^3/uL (4.0-10.0)
[2020-11-29 05:06] LABS: CREATININE FOR GFR 1.5 MG/DL (0.55-1.30); GLOMERULAR FILTRATION RATE 35.8 (>39); MAGNESIUM LEVEL 1.7 MG/DL (1.8-2.4); POTASSIUM SERUM 3.9 MEQ/L (3.5-5.1)
[2020-11-29] MEDS: HumaLOG INSULIN (NovoLOG) PER UNIT SC SCH ×2 (07:30→11:51)
[2020-11-29 08:00] VITALS: BP 187/86
[2020-11-29] MEDS: HEPARIN SOD (PORCINE) 5000UNITS/ML 1ML VIAL/SYRINGE SC SCH (08:27)
[2020-11-29] MEDS: MECLIZINE 25 MG TABLET PO SCH (08:28)
[2020-11-29] MEDS: DIVALPROEX 500MG *ER* TAB PO SCH (08:28)
[2020-11-29] MEDS: ASPIRIN 81MG ENTERIC TABLET PO SCH (08:28)
[2020-11-29] MEDS: amLODIPine 5 MG TAB PO SCH (08:28)
[2020-11-29] MEDS: OMEPRAZOLE 20 MG CAP PO SCH (08:28)
[2020-11-29] MEDS: buPROPion **XL** TABLET 150MG (WELLBUTRIN XL) PO SCH (08:29)
[2020-11-29] MEDS: SERTRALINE HCL 50 MG TAB PO SCH (08:30)
[2020-11-29] MEDS: ATORVASTATIN 20 MG TAB PO SCH (08:30)
[2020-11-29] MEDS: CLOPIDOGREL 75 MG TAB PO SCH (08:30)
[2020-11-29] MEDS: NITROGLYCERIN 0.2 MG/HR PATCH TD SCH (08:41)
[2020-11-29] MEDS ORDERED: **hydrALAZINE HCL** 25 MG TAB PO SCH (11:00)
[2020-11-29 11:50] VITALS: BP 204/100
[2020-11-29 12:00] VITALS: BP 204/100
[2020-11-29] MEDS ORDERED: DEPA500T2 PO (12:06)
[2020-11-29] MEDS ORDERED: HYDR25TA PO (12:06)
[2020-11-29] MEDS ORDERED: ASPI-551 PO (12:06)
[2020-11-29] MEDS ORDERED: MECL-86 PO (12:06)
--- NOTE | 2020-11-29 19:19 | DS.PDOC ---
Discharge Summary General Date of Admission Nov 22, 2020 at 17:05 Date of Discharge November 29, 2020 Attending Physician: MICHELE PARRA MD Discharge Summary PROCEDURES PERFORMED DURING STAY: None. ADMITTING DIAGNOSES: -Hypertensive urgency -Thalamic stroke -Hypertension - Diabetes mellitus - Acute on chronic diastolic CHF (2019) - Hyperlipidemia - Coronary artery disease s/p RCA stent (2007) - Osteoarthritis/rheumatoid arthritis - GERD - Depression - Takotsubo cardiomyopathy in 2013 - Chronic back pain/ spondylosis of the lumbar region. 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 DISCHARGE DIAGNOSES: - Thalamic stroke -Hypertension - Diabetes mellitus - Acute on chronic diastolic CHF (2019) - Hyperlipidemia - Coronary artery disease s/p RCA stent (2007) - Osteoarthritis/rheumatoid arthritis - GERD - Depression - Takotsubo cardiomyopathy in 2013 - Chronic back pain/ spondylosis of the lumbar region. 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 COMPLICATIONS/CHIEF COMPLAINT: Hypertensive Urgency, Occipital/Thalamic Stroke. HISTORY OF PRESENT ILLNESS: Mrs. Deleon is a 80-year-old female patient with past medical history of HTN, IDDM2, HDL, CAD s/p stenting and RCA, breast cancer s/p radiation, depression, takotsubo cardiomyopathy presented to the emergency department right sided headache and vision loss was found to have focal acute infarcts involving the right thalamus and right medial occipital lobe confirming a diagnosis of acute stroke. HOSPITAL COURSE: During the hospitalization patient had initial elevated blood pressures which were controlled by hydralazine. Neurology was consulted for her stroke. They did recommend following the stroke protocol parameters for blood pressure control and starting her on statin, aspirin, patient was already on Plavix prior to the admission. On presentation she did have loss of vision in the left visual field of both eyes [left homonymous hemianopia], headache in her right forehead. Even though her blood pressure was controlled with the medication she did have loss of vision in the vision field in her bilateral eyes along with headache going on for light couple of days following the stroke episode. She made gradual recovery of her vision. She did also have dizziness [patient was spinning in the room] and was started on meclizine. Given her recurrent headaches and dizziness neurology was consulted again and they recommended starting her on valproate. Nephrology was also consulted regarding her high blood pressure and kidney function being worsening on her multiple blood pressure medications. Extensive imaging and testing were done for her kidneys which showed chronic conditions but no renal artery stenosis. Patient does have resistant hypertension and she is on multiple blood pressure medications at home. Her blood pressure during the hospital stay remained systolic 150-1 80 most of her stay. During the stay she was treated for her other chronic conditions like diabetes with insulin, reflux disease with omeprazole and was continued on her home depression medication. DISCHARGE MEDICATIONS: Please see below. ALLERGIES: Please see below. PHYSICAL EXAMINATION ON DISCHARGE: VITAL SIGNS: Please see below. General: Patient is alert and oriented x 3. She appears to be in better spirits today Eyes: EOMI, PERRLA Vision: Patient states she has 90% of her vision back ENT: No uvula visualized (had surgically removed as a child), trachea midline, no lymphadenopathy Cardiovascular: S1, S2, normal rhythm, soft systolic murmur appreciated in left 2nd intercostal space. Respiratory: Crackles heard in lower bases. No wheezes or rhonchi noted. Abdomen: Soft, bowel sounds positive, slight tenderness to palpation suprapubically (patient had to urinate). Extremities: No edema noted in bilateral legs Central nervous system (ANGLE BENDER): Cranial nerves III-XII grossly intact, normal strength and sensation throughout LABORATORY DATA: Please see below. IMAGING: CT Head without contrast 11/22/20: Impression: Small rounded low-density area within the right basal ganglia/thalamus may represent subacute infarction and should be correlated with symptoms. Chronic atrophy and microvascular ischemic changes. No intracranial hemorrhage, extra- axial hemorrhage, or edema/mass effect. Brain MRI w/out contrast 11/22/20:Impression: Focal acute infarcts involving the right thalamus and right medial occipital lobe. Brain MRA w/out contrast 11/22/20: Impression: No stenosis or occlusion. Chest Xray 11/22/20: Impression: Chronic appearing changes as described above including possible chronic pulmonary vascular congestion. Carotid duplex 11/22/20: Impression: Narrowing in the left carotid artery in the upper end of 50-69% range. Narrowing in the right carotid artery in the lower and of 50-69% range. Chest x-ray 11/28/20: Cardiomegaly persists. Minimal linear platelike atelectasis left base. Otherwise no active disease. Renal ultrasound 11/26/20: No hydronephrosis. Chronic right renal disease. Echocardiogram: 11/22/20: Very mild concentric left ventricular hypertrophy. Normal regional LV wall motion and wall thickening. Normal LV systolic function. LVEF 60% by visual estimate. Grade 1 LV diastolic dysfunction (impaired relaxation and filling pattern). Moderate left atrial dilatation. Suggestive of mild elevation of pulmo nary artery systolic pressure. Saline bubble study was negative for detection of right to left intracardiac shunting or right to left intrapulmonary shunting. PROGNOSIS: Fair ACTIVITY: As tolerated. DIET: 2 g sodium diet DISCHARGE PLAN: To ARU DISPOSITION: 62 D/T Rehab Facility. DISCHARGE INSTRUCTIONS: 1. Follow-up with neurology upon discharge from ARU. 2. Follow-up with PCP upon discharge from ARU 3. Follow-up with nephrology upon discharge from ARU ITEMS TO FOLLOWUP ON ON OUTPATIENT: 1. Follow-up with neurology upon discharge from ARU. 2. Follow-up with PCP upon discharge from ARU 3. Follow-up with nephrology upon discharge from ARU DISCHARGE CONDITION: Stable. TIME SPENT ON DISCHARGE: Greater 30 than minutes. Attending Attestation: I saw and evaluated patient. I agree with the findings and plan of care as documented in the residents note. Vital Signs/I&Os Vital Signs Date Time Temp Pulse Resp B/P (MAP) Pulse Ox O2 Delivery O2 Flow Rate FiO2 11/29/20 12:00 95.9 65 21 204/100 (134) 94 Room Air 11/27/20 16:00 2.0 I&O- Last 24 Hours up to 6 AM 11/29/20 06:00 Intake Total 595 ml Output Total 900 ml Balance -305 ml Laboratory Data Labs 24H Laboratory Tests 2 11/28/20 20:36: Bedside Glucose (Misc Panel) 195H 11/29/20 04:10: Immature Granulocyte % (Auto) 0.3, Neutrophils (%) (Auto) 71.2H, Lymphocytes (%) (Auto) 14.2L, Monocytes (%) (Auto) 9.7H, Eosinophils (%) (Auto) 4.0H, Basophils (%) (Auto) 0.6, Neutrophils # (Auto) 6.2, Lymphocytes # (Auto) 1.2L, Monocytes # (Auto) 0.8, Eosinophils # (Auto) 0.4, Basophils # (Auto) 0.1, Nucleated Red Blood Cells % (auto) 0.0, Anion Gap 5L, Glomerular Filtration Rate 35.8L, Calcium Level 10.0, Magnesium Level 1.7L 11/29/20 11:36: Bedside Glucose (Misc Panel) 126H CBC/BMP Laboratory Tests 11/29/20 04:10 FSBS Laboratory Tests Test 11/28/20 20:36 11/29/20 11:36 Range/Units Bedside Glucose (Misc Panel) 195 126 83-110 MG/DL Microbiology Microbiology 11/23/20 Urine Culture - Final, Complete Discharge Medications Scheduled Amlodipine Besylate (Amlodipine Besylate) 10 Mg Tablet, 10 MG PO DAILY, (Reported) Aspirin (Aspirin EC) 81 Mg Tablet.dr, 81 MG PO DAILY Bupropion HCl (Bupropion Xl) 300 Mg Tab, 300 MG PO DAILY, (Reported) Clopidogrel Bisulfate (Clopidogrel) 75 Mg Tab, 75 MG PO DAILY, (Reported) Divalproex Sodium (Depakote ER) 500 Mg Tab.er.24h, 500 MG PO DAILY Hydralazine HCl (Hydralazine HCl) 25 Mg Tablet, 25 MG PO TID Insulin Glargine (Lantus) 1 Units/0.01 Ml Susp, 22 UNITS SC QHS, (Reported) Insulin Human Lispro (Novolog) 100 U/Ml Inj, 1 DOSE SC AC, (Reported) PER SLIDING SCALE Lorazepam (Ativan) 1 Mg Tab, 1 MG PO QHS, (Reported) Meclizine HCl (Meclizine HCl) 25 Mg Tablet, 25 MG PO BID Omeprazole (Omeprazole) 40 Mg Cap, 40 MG PO DAILY, (Reported) Sertraline HCl (Sertraline HCl) 50 Mg Tablet, 150 MG PO DAILY, (Reported) Scheduled PRN Nitroglycerin (Nitrostat) 0.4 Mg Subl, 0.4 MG SL NITRO PRN for CHEST PAIN, (Reported) Allergies Coded Allergies: glimepiride (Verified Allergy, Intermediate, 04/01/20) strawberry (Verified Allergy, Mild, SORES IN MOUTH, 04/01/20) blue dye (Verified Allergy, Unknown, 04/01/20) pregabalin (Verified Allergy, Unknown, 04/01/20) amoxicillin (Verified Adverse Reaction, Intermediate, VOMITING, 04/01/20) clavulanic acid (Verified Adverse Reaction, Intermediate, VOMITING, 04/01/20) codeine (Verified Adverse Reaction, Intermediate, NAUSEA, 04/01/20) duloxetine (Verified Adverse Reaction, Intermediate, INSOMNIA, 04/01/20) gabapentin (Verified Adverse Reaction, Intermediate, CONFUSION, 04/01/20) trazodone (Verified Adverse Reaction, Intermediate, CONFUSION, 04/01/20) Szpzcno-Roh-Tld Reductase Inhibitor (Verified Adverse Reaction, Mild, LEG CRAMPS, 04/01/20) phenol (Verified Adverse Reaction, Mild, "FEELS WEIRD", 04/01/20) exenatide (Verified Adverse Reaction, Unknown, ITCHINESS, 04/01/20) Juan J Pritchard MD Nov 29, 2020 19:19 MICHELE PARRA MD Nov 30, 2020 06:35
[2020-11-30] MEDS ORDERED: cloNIDine HCL 0.1 MG/24 HR PATCH TOP SCH (09:00)
== END 2020-11-29 13:45 | DRG 65 ==
LOC: M ED 09:43 → EDBD 09:43 → M ED INP 17:05 → ENRESERV 17:20 → M PCU 19:12
PROVIDERS: ADMIT Internal Medicine; ATTEND Internal Medicine
DX: I63.9 Cerebral infarction, unspecified (principal); I50.32 Chronic diastolic (congestive) heart failure; N17.9 Acute kidney failure, unspecified; H53.462 Homonymous bilateral field defects, left side; I16.0 Hypertensive urgency; E11.9 Type 2 diabetes mellitus without complications; Z85.3 Personal history of malignant neoplasm of breast; K21.9 Gastro-esophageal reflux disease without esophagitis; F32.9 Major depressive disorder, single episode, unspecified; M19.90 Unspecified osteoarthritis, unspecified site; I25.10 Atherosclerotic heart disease of native coronary artery without angina pectoris; Z95.2 Presence of prosthetic heart valve; I11.0 Hypertensive heart disease with heart failure; M06.9 Rheumatoid arthritis, unspecified; Z92.3 Personal history of irradiation; E78.5 Hyperlipidemia, unspecified; Z79.82 Long term (current) use of aspirin; Z79.899 Other long term (current) drug therapy; Z91.018 Allergy to other foods; Z88.8 Allergy status to other drugs, medicaments and biological substances; Z88.0 Allergy status to penicillin; Z88.5 Allergy status to narcotic agent; Z96.653 Presence of artificial knee joint, bilateral; Z79.4 Long term (current) use of insulin

== ENCOUNTER 2020-11-29 13:45 | Inpatient (IN) | payer MEDICARE ==
[~2020-11-29] VITALS: Ht 165.1 cm; Wt 85.6 kg
[~2020-11-29 13:45] MED LIST changes: +ASPI-551 PO; +DEPA500T2 PO; +HYDR25TA PO; +MECL-86 PO; +VALS1TAB67 PO
[2020-11-29 14:00] VITALS: BP 189/86
--- NOTE | 2020-11-29 14:46 | IPN ---
PROGRESS NOTE DATE: 11/29/2020 SUBJECTIVE: Ms. Mak is seen and examined this morning at the bedside. She is walking around the room using the walker. She is discharge pending to acute rehabilitation unit. Her blood pressures have been uncontrolled today. I discussed with the hospitalist her risks regarding her antihypertensives. She did have worsening renal function on the labs today after receiving a dose of Valsartan yesterday. She is going to be started today on Hydralazine three times a day. The patient herself denies any new complaints. No shortness of breath. She does still feel nauseous. PHYSICAL EXAMINATION: VITAL SIGNS: Temperature 96.7, pulse 62, respiratory rate 17, blood pressure 187/86, saturating 96% on room air. INTAKE/OUTPUT: Intake yesterday was not fully recorded. Urine output yesterday was 1 liter. Weight in the bed scale today is 85.8 kg. GENERAL: Patient is seen walking around the room with a walker, awake, alert, oriented, and in no distress. Prefers to keep her eyes closed when she is in bed. HEENT: Tongue is moist. Neck is supple. Jugular veins are not elevated. HEART: Sounds are mildly bradycardic. There is no leg edema. LUNGS: Show symmetric air movement bilaterally without crackle or rale. She is comfortable on room air. ABDOMEN: Soft and nontender. EXTREMITIES: Show healed vertical scars on both knees. There is no leg edema. NEUROLOGIC: She is oriented and moves all four extremities on command. LABORATORY STUDIES: White count 8.7, hemoglobin 12.0, platelets 288,000. Sodium 141, potassium 3.9, BUN 33, creatinine 1.5. Magnesium 1.7. INPATIENT MEDICATIONS: Torsemide, Spironolactone and Valsartan are all discontinued. She was started on Hydralazine 25 mg three times a day. The remainder of her medications are unchanged as compared to yesterday. PROBLEMS: 1. VAHID superimposed on CKD stage 3: I would keep the patient off Valsartan at this time given her fluctuating renal function. I think she is at higher risk of worsening kidney function with use of ELLA or ARB. Her diuretics are also on hold as she is having nausea and poor oral intake. Her daily weights are stable. Her volume status is very well compensated. Her lung imaging shows no sign of effusion or edema. She is saturating well on room air. 2. Chronic diastolic congestive heart failure: BNP has down trended, she got a dose of Spironolactone and Torsemide yesterday along with Valsartan. Subsequently renal function has worsened on the labs today. Please hold ELLA, ARB and diuretic at this time. Her fluid status will need to be watched while she is in the acute rehabilitation unit and she may need diuretics on an as needed basis given her poor intake. 3. Right renal atrophy: Patient has had two non-diagnostic renal Dopplers in the past and she had a limited non-contrast MRA of the renal artery that did not show any renal artery stenosis to explain her hypertension. 4. Hypertension: Blood pressures are frankly uncontrolled today. I would keep her off of ELLA or ARB at this time. She is on Amlodipine and I suggested to start Hydralazine 25 mg three times a day. Given her bradycardia, she cannot have any rate controlling agents.
[2020-11-29] MEDS ORDERED: DEXTROSE 50% 50 ML SYRINGE IV PRN (15:35)
[2020-11-29] MEDS ORDERED: GLUCOSE 4GM CHEW TABLET PO PRN (15:35)
[2020-11-29] MEDS ORDERED: GLUCAGON INJ 1MG VIAL SC PRN (15:35)
[2020-11-29] MEDS ORDERED: NITROGLYCERIN 0.4 MG SUBL TABLET SL PRN (15:35)
[2020-11-29] MEDS ORDERED: **hydrALAZINE HCL** 25 MG TAB PO SCH (16:00)
[2020-11-29] MEDS: ACETAMINOPHEN TAB 650MG DOSE (2X325MG) PO PRN ×2 (16:14→21:21)
[2020-11-29] MEDS: HumaLOG INSULIN (NovoLOG) PER UNIT SC SCH ×2 (16:46→21:00)
[2020-11-29] MEDS: MULTIVITAMINS/MINERALS THERAP 1 TAB PO SCH (16:59)
[2020-11-29 17:04] VITALS: BP 189/84
--- NOTE | 2020-11-29 17:09 | HPEPDOC ---
[employer] Note DATE OF ADMISSION: 11.29.2020 DATE OF SERVICE: 11.29.2020 TIME OF ADMISSION: Please refer to physician's admission order. SOURCE OF ADMISSION INFORMATION: Medical Records and Patient ADMITTING DIAGNOSES: Occipital stroke. Acute Right basal ganglia/thalamus stroke Acute CHF. Diastolic CHF Chronic cough. Iron deficiency anemia. Takusubo cardiomyopathy. Acute renal injury. CAD [place] artery. CK D stage III Pneumonia. Diabetes type 2, controlled. COPD Left Homonymous Hemianopsia Hypertensive emergency Headache Depression. Right L5 radiculopathy Left bicipital tendonitis CHIEF COMPLAINT: . HISTORY OF PRESENT ILLNESS: Mrs. Deleon is a pleasant 80-year-old female who presented to the emergency department for right sided non radiating headache located above her right eye for 36 hours duration and vision loss of 24 hours duration. She states that she woke up 11.21.2020 with a severe headache and spent most of the day in bed in hopes of relieving the headache. She did not take any over the counter medications to relieve the pain and she rates her headache as a 10/10 in intensity. She first noticed the vision loss evening of 11.21.2020 while speaking to her . She states her blood pressure usually averages 150/80 at home. She denied numbness, tingling, syncopal episodes, chest pain, shortness of breath, palpitations, facial droop, slurring of her speech, or difficulty ambulating around her house. She states that her mother had a stroke at age 73 and two of her sisters have also had strokes in their 70's. Hospital course noted for acute infarcts involving the right thalamus and right medial occipital lobe on MRI 12-11. Lab studies noted for CR 1.57 and GFR 33.9 on 11.25.2020 improving to 1.16 and 48.1 by 11.28.2020 BNP elevated to 107 on 11/28/2020 and blood pressures remain labile with systolics up to the 200s. Patient was to be transferred to rehabilitation yesterday, had a change of heart and declined. After long discussion with her eldest son, who strongly encouraged her to come to rehabilitation to regain her best function, she assented to transfer today. Nephrology evaluated her this morning and suggested stopping the valsartan renal protection and proceeding with hydralazine, close monitoring of INOs encouraging fluid by mouth, for labile hypertension. Well be working closely with hospitalist service to optimize her complex medical condition as she begins comprehensive rehabilitation. REVIEW OF SYSTEMS: The following is a completed review of systems and has been reviewed. Review of systems otherwise unremarkable. PAIN: Patient self reports recent recurrence of right frontal headache. EYES: Significant peripheral visual loss EARS, NOSE, & THROAT: No throat pain, notes intermittent discharge and speech impediment from accidental uvulectomy during the tonsillectomy as a child. CARDIOVASCULAR: Denies recent chest pain or palpitations. PULMONARY: Denies shortness of breath. GASTROINTESTINAL: has had frequent recurrent diarrhea. GENITOURINARY: . Continent MUSCULOSKELETAL: . Generalized aches and pains, bilateral lower extremity pain, right worse than left, left shoulder girdle pain. NEUROLOGICAL:. Generalized weakness and visual loss. Prior history of migraines HEMATOLOGICAL: . Admits to easy bruising SKIN: . No acute changes PSYCHIATRIC: Unremarkable. All other review of systems found to be negative. PAST MEDICAL HISTORY: Diastolic congestive heart failure. Breast cancer status post XRT Hypertension. Type 2 diabetes. Dyslipidemia. Coronary artery disease. Status post stenting History of breast cancer and other comorbid Rheumatoid arthritis. GERD. Depression. Chronic back pain. History of left intraductal carcinoma in situ, status post radiation therapy. PAST SURGICAL HISTORY: Status post bilateral knee replacement. Status post lumbar surgery and repeated epidurals with equivocal results Status post hysterectomy with cystectomy. Status post bilateral carpal tunnel repair. Right coronary artery drug-eluting stent 2007 Status post tonsillectomy with uvulectomy ALLERGIES: Please see below. STATINS, AMOXICILLIN, BLUE DYE, CLAVULANIC ACID, CODEINE, DULOXETINE, GABAPENTIN Per medical Record glimepiride (Verified Allergy, Intermediate, 04/01/20) strawberry (Verified Allergy, Mild, SORES IN MOUTH, 04/01/20) blue dye (Verified Allergy, Unknown, 04/01/20) pregabalin (Verified Allergy, Unknown, 04/01/20) amoxicillin (Verified Adverse Reaction, Intermediate, VOMITING, 04/01/20) clavulanic acid (Verified Adverse Reaction, Intermediate, VOMITING, 04/01/20) codeine (Verified Adverse Reaction, Intermediate, NAUSEA, 04/01/20) duloxetine (Verified Adverse Reaction, Intermediate, INSOMNIA, 04/01/20) gabapentin (Verified Adverse Reaction, Intermediate, CONFUSION, 04/01/20) trazodone (Verified Adverse Reaction, Intermediate, CONFUSION, 04/01/20) Cehronm-Ovl-Wpz Reductase Inhibitor (Verified Adverse Reaction, Mild, LEG CRAMPS, 04/01/20) phenol (Verified Adverse Reaction, Mild, "FEELS WEIRD", 04/01/20) exenatide (Verified Adverse Reaction, Unknown, ITCHINESS, 04/01/20) MEDICATIONS: Please see below. FAMILY HISTORY: . Father: from pancreatic cancer. Mother: , from stroke, cardiac disease. Siblings: , heart problems, CVA, stroke. SOCIAL HISTORY: . Non- Smoker, no EtOH, lives in a [address] 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 Regular PHYSICAL EXAMINATION: VITAL SIGNS: Please see below. GENERAL: Pleasant and cooperative. Mild distress. Alert and oriented times three. HEENT: Pupils pinpoint.. Extraocular movements decreased bilateral gaze. Clear conjunctiva, no adenopathy or thyromegaly. Absent uvula, moist mucosa. Full cervical range of motion without tenderness or spasm. CARDIOVASCULAR: Regular rate and rhythm. LUNGS: Clear to auscultation bilaterally. No wheezes. No rhonchi. ABDOMEN: Soft, nontender, nondistended. Positive normal active bowel sounds, no organomegaly. NEUROLOGICAL: Cranial nerves II through XII noted for constricted visual luna, tongue deviates slightly to right. Sensation grossly intact. Reflexes 2 + and symmetric bilateral biceps, triceps, brachial radialis, Babinski s positive bilaterally. 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 Pain on abduction and forward flexion left upper extremity, tenderness left bicipital groove. Normal tone, no tremor. SKIN: .intact LABORATORY DATA: Please see below. IMAGING: CT Head without contrast 11/22/20: Impression: Small rounded low-density area wit hin the right basal ganglia/thalamus may represent subacute infarction and should be correlated with symptoms. Chronic atrophy and microvascular ischemic changes. No intracranial hemorrhage, extra-axial hemorrhage, or edema/mass effect. Brain MRI w/out contrast 11/22/20:Impression: Focal acute infarcts involving the right thalamus and right medial occipital lobe. Brain MRA w/out contrast 11/22/20: Impression: No stenosis or occlusion. Chest Xray 11/22/20: Impression: Chronic appearing changes as described above including possible chronic pulmonary vascular congestion. Carotid duplex 11/22/20: Impression: Narrowing in the left carotid artery in the upper end of 50-69% range. Narrowing in the right carotid artery in the lower and of 50-69% range. FUNCTIONAL STATUS: Premorbid: Independent with all activities of daily life as well as mobility. On Admission: -Mod Max assistance for lower body dressing, shower transfers, stairs. -Min Mod assistance for bathing, upper body dressing, bed chair and wheelchair transfers, toilet transfers, ambulation. - Set up assistance for grooming. Modified independence for social interaction, expression, comprehension, bowel and bladder. GOALS: ASSESSMENT:-80-year-old hypertensive diabetic lady with right thalamic and medial occipital lobe infarcts, labile blood pressure and acute kidney injury, resolving presents for comprehensive rehabilitation. PLAN: 1. Rehab- PT/OT advance gait and ADls, strengthen/stretch/maintain ROM all 4 limbs. We'll closely monitor blood pressure and other parameters to optimize possible capacity to participate. 2. Neuro- regular neuro checks, Stroke rehabilitation protocol 3. Ortho- history of low back and radicular pain,minimally responsive to epidural as well as left shoulder girdle pain, probable bicipital tendinitis on the affected side. Well incorporate usual therapy modalities and awareness of risk for exacerbation of symptoms with use of assistive device. Possibly Biofreeze or Flector patch may be helpful 4. Cardiac- close monitoring of cardiovascular status. For chronic diastolic congestive heart failure with BNP trending downward. Renal function worsened with spironolactone and torsemide, close INOs and monitoring of weights will be required. Monitor bradycardia. Appreciate hospitalist input -HTN , labile, not well controlled at time of transfer. We will continue to aggressively monitor and manage with hospitalist and nephrology input. Current suggestion is to refrain from valsartan 10 to reduce risk of worsening kidney function with face or arm, as well as to hold diuretics. -HLD- dietary and statin 5. Resp -incentive spirometry, monitor for infection 6. Endo- SSI, ADA diet, education 7. - reportedly, patient has history of right renal atrophy and to nondiagnostic. Renal Dopplers in the past limited noncontrast MRA of the renal artery that did not reveal etiology of hypertension continue bladder program. 8. GI ppx- PPI additional Metamucil to bulk stool and attempt to deangelo chronic diarrhea POST ADMISSION PHYSICIAN EVALUATION: Medical and functional status: Description of medical status, medical assessment: As above. Rehabilitation diagnosis and current and prior co- morbid medical conditions as above. Risk of complications and plans to mitigate them as above. Description of functional status current status is as above. Prior status as above. Status compared to preadmission: There are no clinically significant differences between the patient's current status and the information described on the preadmission screening document. Treatment plan anticipated: Treatment plan is as described above. Required disciplines including physical therapy, occupational therapy, others as noted above. Intensity of services: 3 hours a day, 6-7 days a week. Special considerations: There are no specific special or safety considerations that would likely preclude immediate implementation of an intensive rehabilitation program or subsequently influence the plan of care. ATTESTATION: Considering all the information above, it is my best judgment that this patient requires intensive rehabilitation therapy as described above and an inpatient hospital environment due to the complexity of nursing, medical, and rehabilitation needs required by the patient. Furthermore, this patient can reasonably be expected to participate in and benefit from an inpatient rehabilitation stay with an interdisciplinary team approach to the delivery of rehabilitation care under the direction and supervision of rehabilitation physician. PROGNOSIS: Excellent. ESTIMATED LENGTH OF STAY:7-10 days. PROJECTED DISCHARGE DESTINATION: Home with family support and any durable medical equipment required to increase functional safety and mobility. TIME SPENT COUNSELING AND COORDINATING INITIAL CARE: Greater than 90 minutes. This document is generated using speech recognition software which may result in grammatical, typographical and individual word errors. Vital Signs Vital Sign - Last 24 Hours 11/29/20 11/29/20 11/29/20 11/29/20 14:00 16:14 16:18 17:04 Temp 97.2 Pulse 84 Resp 19 18 B/P (MAP) 189/86 (120) 179/86 189/84 (119) Pulse Ox 95 O2 Delivery Room Air Room Air Laboratory Data Labs 24H Laboratory Tests 2 11/29/20 16:24: Bedside Glucose (Misc Panel) 94 FSBS Laboratory Tests Test 11/29/20 16:24 Range/Units Bedside Glucose (Misc Panel) 94 83-110 MG/DL Home Medications Scheduled Amlodipine Besylate (Amlodipine Besylate) 10 Mg Tablet, 10 MG PO DAILY, (Reported) Aspirin (Aspirin EC) 81 Mg Tablet.dr, 81 MG PO DAILY Bupropion HCl (Bupropion Xl) 300 Mg Tab, 300 MG PO DAILY, (Reported) Clopidogrel Bisulfate (Clopidogrel) 75 Mg Tab, 75 MG PO DAILY, (Reported) Divalproex Sodium (Depakote ER) 500 Mg Tab.er.24h, 500 MG PO DAILY Hydralazine HCl (Hydralazine HCl) 25 Mg Tablet, 25 MG PO TID Insulin Glargine (Lantus) 1 Units/0.01 Ml Susp, 22 UNITS SC QHS, (Reported) Insulin Human Lispro (Novolog) 100 U/Ml Inj, 1 DOSE SC AC, (Reported) PER SLIDING SCALE Lorazepam (Ativan) 1 Mg Tab, 1 MG PO QHS, (Reported) Meclizine HCl (Meclizine HCl) 25 Mg Tablet, 25 MG PO BID Omeprazole (Omeprazole) 40 Mg Cap, 40 MG PO DAILY, (Reported) Sertraline HCl (Sertraline HCl) 50 Mg Tablet, 150 MG PO DAILY, (Reported) Scheduled PRN Nitroglycerin (Nitrostat) 0.4 Mg Subl, 0.4 MG SL NITRO PRN for CHEST PAIN, (Reported) Allergies Coded Allergies: glimepiride (Verified Allergy, Intermediate, 04/01/20) strawberry (Verified Allergy, Mild, SORES IN MOUTH, 04/01/20) blue dye (Verified Allergy, Unknown, 04/01/20) pregabalin (Verified Allergy, Unknown, 04/01/20) amoxicillin (Verified Adverse Reaction, Intermediate, VOMITING, 04/01/20) clavulanic acid (Verified Adverse Reaction, Intermediate, VOMITING, 04/01/20) codeine (Verified Adverse Reaction, Intermediate, NAUSEA, 04/01/20) duloxetine (Verified Adverse Reaction, Intermediate, INSOMNIA, 04/01/20) gabapentin (Verified Adverse Reaction, Intermediate, CONFUSION, 04/01/20) trazodone (Verified Adverse Reaction, Intermediate, CONFUSION, 04/01/20) Mgmhdup-Qbg-Stp Reductase Inhibitor (Verified Adverse Reaction, Mild, LEG CRAMPS, 04/01/20) phenol (Verified Adverse Reaction, Mild, "FEELS WEIRD", 04/01/20) exenatide (Verified Adverse Reaction, Unknown, ITCHINESS, 11/9/20) A-FIB/CHADSVASC A-FIB History Current/History of A-Fib/PAF?: No Current PO Anticoag Therapy: No Age/Risk Factor Scoring CHADSVASC: CHADSVASC Response (Comments) Value Age Risk Factor Age >/= 75 years old 2 Total 2 OBIE LOJA MD Nov 29, 2020 17:09
[2020-11-29] MEDS ORDERED: **hydrALAZINE HCL** 25 MG TAB PO ONE (18:30)
[2020-11-29 18:35] VITALS: BP 177/78
[2020-11-29 18:36] VITALS: BP 134/63
[2020-11-29 18:37] VITALS: BP 123/68
[2020-11-29 20:00] VITALS: BP 168/78
[2020-11-29] MEDS: MECLIZINE 25 MG TABLET PO SCH (21:22)
[2020-11-29] MEDS: LEVEMIR (INSULIN DETEMIR) 1 UNITS/0.01ML SC SCH (21:22)
[2020-11-29] MEDS: LORazepam 1 MG TAB PO SCH (21:22)
[2020-11-29] MEDS: **hydrALAZINE HCL** 25 MG TAB PO SCH (21:22)
[2020-11-30] VITALS (8 sets, daily range): BP systolic 152–180; BP diastolic 60–89
[2020-11-30] MEDS: HumaLOG INSULIN (NovoLOG) PER UNIT SC SCH ×4 (07:28→21:00)
[2020-11-30] MEDS: FIBER-CON 625 MG TAB PO SCH (07:46)
[2020-11-30] MEDS: buPROPion **XL** TABLET 150MG (WELLBUTRIN XL) PO SCH (07:46)
[2020-11-30] MEDS: MULTIVITAMINS/MINERALS THERAP 1 TAB PO SCH (07:46)
[2020-11-30] MEDS: CLOPIDOGREL 75 MG TAB PO SCH (07:47)
[2020-11-30] MEDS: ASPIRIN 81MG ENTERIC TABLET PO SCH (07:47)
[2020-11-30] MEDS: **hydrALAZINE HCL** 25 MG TAB PO SCH ×4 (07:47→20:56)
[2020-11-30] MEDS: MECLIZINE 25 MG TABLET PO SCH ×2 (07:47→20:55)
[2020-11-30] MEDS: DIVALPROEX 500MG *ER* TAB PO SCH (07:48)
[2020-11-30] MEDS: OMEPRAZOLE 20 MG CAP PO SCH (07:48)
[2020-11-30] MEDS: SERTRALINE HCL 50 MG TAB PO SCH (07:48)
[2020-11-30 08:09] LABS: BASO # 0.1 10^3/uL (0.0-0.2); BASO % 0.6 % (0.0-1.0); EOS # 0.3 10^3/uL (0.0-0.5); EOS % 3.9 % (0.0-3.0); HEMATOCRIT 42.4 % (36.0-47.0); HEMOGLOBIN 13.1 g/dl (12.0-15.5); LYMPH # 1.2 10^3/uL (1.5-5.0); LYMPH % 15.2 % (24.0-44.0); MEAN CORPUSCULAR HEMOGLOBIN 29.8 pg (27.0-33.0); MEAN CORPUSCULAR HGB CONC 30.9 g/dl (32.0-36.5); MEAN CORPUSCULAR VOLUME 96.6 fl (80.0-96.0); MONO # 0.8 10^3/uL (0.0-0.8); MONO % 9.7 % (2.0-8.0); NEUTROPHILS # 5.4 10^3/uL (1.5-8.5); NEUTROPHILS % 70.2 % (36.0-66.0); PLATELET COUNT, AUTOMATED 308 10^3/uL (150-450); RED BLOOD COUNT 4.39 10^6/uL (4.00-5.40); WHITE BLOOD COUNT 7.8 10^3/uL (4.0-10.0)
[2020-11-30 08:35] LABS: ALBUMIN 3.4 GM/DL (3.2-5.2); BILIRUBIN,TOTAL 0.4 MG/DL (0.2-1.0); CALCIUM LEVEL 10.6 MG/DL (8.8-10.2); CREATININE FOR GFR 1.13 MG/DL (0.55-1.30); GLOMERULAR FILTRATION RATE 49.6 (>39); POTASSIUM SERUM 3.8 MEQ/L (3.5-5.1); TOTAL PROTEIN 7.9 GM/DL (6.4-8.2)
--- NOTE | 2020-11-30 12:09 | IPNPDOC ---
Text Note Date of Service The patient was seen on 11/30/20. NOTE SUBJECTIVE: Patient seen and examined at bedside. No acute overnight events reported. Blood pressures still elevated but better controlled. Remains asymptomatic. No new medical complaints. OBJECTIVE PHYSICAL EXAMINATION: VITAL SIGNS: Please see below. 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 Patient discharged to ARU for further PT. #HTN - increase hydralazine - her home diuretics and ARB discontinued due to VAHID - continue amlodipine - avoid BB/CCB given bradycardia and pauses #CVA -Patient presented with right sided headache and vision loss (left visual luna bilaterally) -Brain MRI showed focal acute infarcts involving the right thalamus and right medial occipital lobe.11/22/20 -Carotid u/s: Narrowing in the left carotid artery in the upper end of 50-69% range. Narrowing in the right carotid artery in the lower and of 50-69% range. -Continue atorvastatin 80mg and dual antiplatelet therapy (ASA / Plavix) -Neurology consultation appreciated -Patient's states her vision is restored to 90% of baseline -Likely the cause of patient's dizziness-per neurology #VAHID superimposed on CKD stage 3 - follow as per nephrology - assistance appreciated -Continuing to hold spironolactone, torsemide, and valsartan. #Headache - much improved -continue Depakote ER 500 q d-per neuro #Dizziness -likely related to recent stroke - improves when she wears her glasses -continue meclizine q 12 hours #Sinus Bradycardia/pauses - discussed with cardiology - no further intervention - avoid BB/CCB -Patient can follow up with cardiology as an outpatient. #Possible right renal atrophy -MRA abdomen results: patient does not have renal artery stenosis #electrolyte derangements - replete as needed #Urinary urgency - resolved #Diarrhea -resolved -likely secondary to atorvastatin -The benefits outweight the risk at this point for the patient to continue taking atorvastatin. #Suspected vascular congestion -Seen on chest x ray -Pro BNP: 3248 11/22 -Patient does not appear to be fluid overloaded clinically #Hypoxia -Patient breathing on room air -Oxygen saturation 95% #Diabetes mellitus type 2: Insulin dependent - continue on sliding scale insulin - She is on 22 units of insulin at home. -Hypoglycemic parameters in place. #CAD / PCI - Will continue Plavix 75 mg. -continue patient on ASA 81mg #chronic HFpEF - compensated #GERD: - Continue omeprazole 40 mg by mouth. #Depression -Continue wellbutrin and sertraline #DVT prophylaxis: Disposition: continue to monitor hypertension; patient is DNR/DNI VS,Jjbone, I+O VS, Jjbone, I+O Laboratory Tests 11/30/20 07:42 Vital Signs Date Time Temp Pulse Resp B/P (MAP) Pulse Ox O2 Delivery O2 Flow Rate FiO2 11/30/20 11:11 180/89 (119) 11/30/20 10:30 98.1 83 16 96 Room Air I&O- Last 24 Hours up to 6 AM 11/30/20 06:00 Intake Total 438 ml Balance 438 ml MICHELE PARRA MD Nov 30, 2020 12:09
[2020-11-30] MEDS: ACETAMINOPHEN TAB 650MG DOSE (2X325MG) PO PRN (19:52)
[2020-11-30] MEDS: LORazepam 1 MG TAB PO SCH (20:56)
[2020-11-30] MEDS: LEVEMIR (INSULIN DETEMIR) 1 UNITS/0.01ML SC SCH (20:57)
[2020-12-01] VITALS (11 sets, daily range): BP systolic 132–196; BP diastolic 60–84
[2020-12-01] MEDS: ACETAMINOPHEN TAB 650MG DOSE (2X325MG) PO PRN ×3 (05:52→23:14)
[2020-12-01] MEDS: HumaLOG INSULIN (NovoLOG) PER UNIT SC SCH ×4 (07:30→20:51)
[2020-12-01] MEDS: FIBER-CON 625 MG TAB PO SCH (08:11)
[2020-12-01] MEDS: MULTIVITAMINS/MINERALS THERAP 1 TAB PO SCH (08:11)
[2020-12-01] MEDS: OMEPRAZOLE 20 MG CAP PO SCH (08:12)
[2020-12-01] MEDS: DIVALPROEX 500MG *ER* TAB PO SCH (08:12)
[2020-12-01] MEDS: CLOPIDOGREL 75 MG TAB PO SCH (08:12)
[2020-12-01] MEDS: ASPIRIN 81MG ENTERIC TABLET PO SCH (08:12)
[2020-12-01] MEDS: buPROPion **XL** TABLET 150MG (WELLBUTRIN XL) PO SCH (08:12)
[2020-12-01] MEDS: SERTRALINE HCL 50 MG TAB PO SCH (08:13)
[2020-12-01] MEDS: MECLIZINE 25 MG TABLET PO SCH ×2 (08:14→20:55)
[2020-12-01] MEDS: **hydrALAZINE HCL** 25 MG TAB PO SCH ×4 (08:14→20:55)
[2020-12-01] MEDS: LORazepam 1 MG TAB PO SCH (20:55)
[2020-12-01] MEDS: LEVEMIR (INSULIN DETEMIR) 1 UNITS/0.01ML SC SCH (20:56)
[2020-12-01] MEDS ORDERED: **hydrALAZINE** 50 MG TAB PO ONE (23:15)
[2020-12-01] MEDS ORDERED: ONDANSETRON 4 MG TAB PO ONE (23:25)
[2020-12-01] MEDS ORDERED: diphenhydrAMINE 25MG CAP PO ONE (23:25)
[2020-12-01] MEDS ORDERED: KETOROLAC TROMETHAMINE 10 MG TAB PO ONE (23:25)
[2020-12-02] VITALS (11 sets, daily range): BP systolic 156–176; BP diastolic 48–78
[2020-12-02] MEDS: **hydrALAZINE** 50 MG TAB PO SCH ×4 (03:10→21:13)
[2020-12-02] MEDS: ACETAMINOPHEN TAB 650MG DOSE (2X325MG) PO PRN ×3 (05:13→21:12)
[2020-12-02] MEDS: HumaLOG INSULIN (NovoLOG) PER UNIT SC SCH ×4 (07:30→21:00)
[2020-12-02 07:36] LABS: BASO # 0.1 10^3/uL (0.0-0.2); BASO % 0.7 % (0.0-1.0); EOS # 0.4 10^3/uL (0.0-0.5); EOS % 5.4 % (0.0-3.0); HEMATOCRIT 37.3 % (36.0-47.0); LYMPH # 1.4 10^3/uL (1.5-5.0); LYMPH % 19.8 % (24.0-44.0); MEAN CORPUSCULAR HEMOGLOBIN 30.8 pg (27.0-33.0); MEAN CORPUSCULAR HGB CONC 32.2 g/dl (32.0-36.5); MEAN CORPUSCULAR VOLUME 95.6 fl (80.0-96.0); MONO # 0.7 10^3/uL (0.0-0.8); MONO % 10.3 % (2.0-8.0); NEUTROPHILS # 4.5 10^3/uL (1.5-8.5); NEUTROPHILS % 63.4 % (36.0-66.0); PLATELET COUNT, AUTOMATED 275 10^3/uL (150-450); WHITE BLOOD COUNT 7.2 10^3/uL (4.0-10.0)
[2020-12-02 07:55] LABS: CALCIUM LEVEL 9.7 MG/DL (8.8-10.2); CREATININE FOR GFR 1.19 MG/DL (0.55-1.30); GLOMERULAR FILTRATION RATE 46.7 (>39); POTASSIUM SERUM 4.1 MEQ/L (3.5-5.1)
[2020-12-02] MEDS: DIVALPROEX 500MG *ER* TAB PO SCH (08:47)
[2020-12-02] MEDS: OMEPRAZOLE 20 MG CAP PO SCH (08:47)
[2020-12-02] MEDS: MULTIVITAMINS/MINERALS THERAP 1 TAB PO SCH (08:47)
[2020-12-02] MEDS: MECLIZINE 25 MG TABLET PO SCH ×2 (08:47→21:12)
[2020-12-02] MEDS: SERTRALINE HCL 50 MG TAB PO SCH (08:47)
[2020-12-02] MEDS: CLOPIDOGREL 75 MG TAB PO SCH (08:47)
[2020-12-02] MEDS: FIBER-CON 625 MG TAB PO SCH (08:47)
[2020-12-02] MEDS: buPROPion **XL** TABLET 150MG (WELLBUTRIN XL) PO SCH (08:48)
[2020-12-02] MEDS: ASPIRIN 81MG ENTERIC TABLET PO SCH (08:48)
--- NOTE | 2020-12-02 13:45 | IPNPDOC ---
Text Note Date of Service The patient was seen on 12/02/20. NOTE SUBJECTIVE: Patient seen and examined at bedside. No acute overnight events reported. Notified this morning regarding elevvated blood pressures. Overall, blood pressures still elevated at times, but better controlled. Remains asymptomatic. No new medical complaints. Still notes intermittent headaches, but generally improving. Denies any other medical complaints. OBJECTIVE PHYSICAL EXAMINATION: VITAL SIGNS: Please see below. 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 Patient discharged to ARU for further PT. #HTN - continue hydralazine - dosage increased to 50 q6h - her home diuretics and ARB discontinued due to VAHID - continue amlodipine - avoid BB/CCB given bradycardia and pauses #CVA -Patient presented with right sided headache and vision loss (left visual luna bilaterally) -Brain MRI showed focal acute infarcts involving the right thalamus and right medial occipital lobe.11/22/20 -Carotid u/s: Narrowing in the left carotid artery in the upper end of 50-69% range. Narrowing in the right carotid artery in the lower and of 50-69% range. -Continue atorvastatin 80mg and dual antiplatelet therapy (ASA / Plavix) -Neurology consultation appreciated -Patient's states her vision is restored to 90% of baseline -Likely the cause of patient's dizziness-per neurology #VAHID superimposed on CKD stage 3 - grossly at baseline - follow as per nephrology - assistance appreciated -Continuing to hold spironolactone, torsemide, and valsartan. #Headache - improved - secondary to CVA - discussed with neuro -continue Depakote ER 500 q d-per neuro #Dizziness -likely related to recent stroke -continue meclizine q 12 hours #Sinus Bradycardia/pauses - discussed with cardiology - no further intervention - avoid BB/CCB -Patient can follow up with cardiology as an outpatient. #Possible right renal atrophy -MRA abdomen results: patient does not have renal artery stenosis #electrolyte derangements - replete as needed #Urinary urgency - resolved #Diarrhea -resolved -likely secondary to atorvastatin -The benefits outweight the risk at this point for the patient to continue taking atorvastatin. #Diabetes mellitus type 2: Insulin dependent - continue on sliding scale insulin - She is on 22 units of insulin at home. -Hypoglycemic parameters in place. #CAD / PCI - Will continue Plavix 75 mg. -continue patient on ASA 81mg #chronic HFpEF - compensated #GERD: - Continue omeprazole 40 mg by mouth. #Depression -Continue wellbutrin and sertraline #DVT prophylaxis: Disposition: continue to monitor blood pressure; follow as per ARU VS,Joele, I+O VS, Joele, I+O Laboratory Tests 12/02/20 07:15 Vital Signs Date Time Temp Pulse Resp B/P (MAP) Pulse Ox O2 Delivery O2 Flow Rate FiO2 12/02/20 10:55 174/78 (110) 12/02/20 10:00 97.0 76 17 95 Room Air l I&O- Last 24 Hours up to 6 AM 12/02/20 06:00 Intake Total 1020 ml Balance 1020 ml MICHELE PARRA MD Dec 02, 2020 13:45
[2020-12-02] MEDS: LORazepam 1 MG TAB PO SCH (21:13)
[2020-12-02] MEDS: LEVEMIR (INSULIN DETEMIR) 1 UNITS/0.01ML SC SCH (21:14)
[2020-12-03] MEDS: **hydrALAZINE** 50 MG TAB PO SCH ×4 (02:50→21:23)
[2020-12-03] MEDS: ACETAMINOPHEN TAB 650MG DOSE (2X325MG) PO PRN ×3 (02:52→18:23)
[2020-12-03 03:00] VITALS: BP 178/60
[2020-12-03 05:23] VITALS: BP 168/70
[2020-12-03] MEDS ORDERED: METOPROLOL TART 25 MG TABLET PO SCH (06:00)
[2020-12-03] MEDS: HumaLOG INSULIN (NovoLOG) PER UNIT SC SCH ×4 (07:30→21:24)
[2020-12-03] MEDS: CLOPIDOGREL 75 MG TAB PO SCH (08:21)
[2020-12-03] MEDS: OMEPRAZOLE 20 MG CAP PO SCH (08:21)
[2020-12-03] MEDS: MULTIVITAMINS/MINERALS THERAP 1 TAB PO SCH (08:21)
[2020-12-03] MEDS: buPROPion **XL** TABLET 150MG (WELLBUTRIN XL) PO SCH (08:21)
[2020-12-03] MEDS: FIBER-CON 625 MG TAB PO SCH (08:21)
[2020-12-03 08:23] VITALS: BP 174/72
[2020-12-03] MEDS: MECLIZINE 25 MG TABLET PO SCH ×2 (08:23→21:22)
[2020-12-03] MEDS: SERTRALINE HCL 50 MG TAB PO SCH (08:24)
[2020-12-03] MEDS: DIVALPROEX 500MG *ER* TAB PO SCH (08:26)
[2020-12-03] MEDS: ASPIRIN 81MG ENTERIC TABLET PO SCH (08:26)
--- NOTE | 2020-12-03 10:55 | IPNPDOC ---
PM&R Progress Note DATE OF SERVICE: Dec 03, 2020 [employer] Progress Note Subjective: patient seen in therapy stating she has a headache from time to time, but tylenol helps. She also states she has a mild cough and would like to try breathing treatments. REVIEW OF SYSTEMS: The following is a completed review of systems and has been reviewed. Review of systems otherwise unremarkable. PAIN: Patient self reports recent recurrence of right frontal headache. EYES: Significant peripheral visual loss EARS, NOSE, & THROAT: No throat pain, notes intermittent discharge and speech im pediment from accidental uvulectomy during the tonsillectomy as a child. CARDIOVASCULAR: Denies recent chest pain or palpitations. PULMONARY: Denies shortness of breath. GASTROINTESTINAL: has had frequent recurrent diarrhea. GENITOURINARY: . Continent MUSCULOSKELETAL: . Generalized aches and pains, bilateral lower extremity pain, right worse than left, left shoulder girdle pain. NEUROLOGICAL:. Generalized weakness and visual loss. Prior history of migraines HEMATOLOGICAL: . Admits to easy bruising SKIN: . No acute changes PSYCHIATRIC: Unremarkable. All other review of systems found to be negative. PHYSICAL EXAMINATION: VITAL SIGNS: Please see below. GENERAL: Pleasant and cooperative. Mild distress. Alert and oriented times three. HEENT: Pupils pinpoint.. Extraocular movements decreased bilateral gaze. Clear conjunctiva, no adenopathy or thyromegaly. Absent uvula, moist mucosa. Full cervical range of motion without tenderness or spasm. CARDIOVASCULAR: Regular rate and rhythm. LUNGS: Clear to auscultation bilaterally. No wheezes. No rhonchi. ABDOMEN: Soft, nontender, nondistended. Positive normal active bowel sounds, no organomegaly. NEUROLOGICAL: Cranial nerves II through XII noted for constricted visual luna, tongue deviates slightly to right. Sensation grossly intact. Reflexes 2 + and symmetric bilateral biceps, triceps, brachial radialis, Babinski s positive bilaterally. EXTREMITIES: 5/5 right 4/5 left cobbler apprentice, elbow flexion, elbow extension, knee extension, foot dorsiflexion, plantar flexion. SKIN: .intact LABORATORY DATA: Please see below. IMAGING: CT Head without contrast 11/22/20: Impression: Small rounded low-density area wi thin the right basal ganglia/thalamus may represent subacute infarction and should be correlated with symptoms. Chronic atrophy and microvascular ischemic changes. No intracranial hemorrhage, extra-axial hemorrhage, or edema/mass effect. Brain MRI w/out contrast 11/22/20:Impression: Focal acute infarcts involving the right thalamus and right medial occipital lobe. Brain MRA w/out contrast 11/22/20: Impression: No stenosis or occlusion. Chest Xray 11/22/20: Impression: Chronic appearing changes as described above including possible chronic pulmonary vascular congestion. 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 PLAN: 1. Rehab- PT/OT advance gait and ADls, strengthen/stretch/maintain ROM all 4 limbs. We'll closely monitor blood pressure and other parameters to optimize possible capacity to participate. 2. Neuro- regular neuro checks, Stroke rehabilitation protocol 3. Ortho- history of low back and radicular pain,minimally responsive to epidural as well as left shoulder girdle pain, probable bicipital tendinitis on the affected side. Well incorporate usual therapy modalities and awareness of risk for exacerbation of symptoms with use of assistive device. Possibly Biofreeze or Flector patch may be helpful 4. Cardiac- -HTN patient with elevated BPs, c/u increased dose of hydralazine, will avoid beta-blockers per hx of heart block, c/u amlodipine, and will trial clonidine 1mg BID and add low dose lasix while monitoring kidney function -HLD- dietary and statin 5. Resp -incentive spirometry, monitor for infection -patient reporting mild cough, will add combivent and monitor- no fever or chills 6. Endo- levemir and ISS, patient with mild hypoglycemina, c/u to monitor and adjsut 7. - reportedly, patient has history of right renal atrophy and to nondiagnostic. Renal Dopplers in the past limited noncontrast MRA of the renal artery that did not reveal etiology of hypertension continue bladder program. -patient voiding well 8. GI ppx- PPI additional Metamucil to bulk stool and attempt to deangelo chronic diarrhea 9. Dispo- patient will require ongoing rehab both for functional needs that she continues to have and to continue adjusting her blood pressure medications to reduce risk of stroke, will watch her respiratory status as well given new cough Allergies Coded Allergies: glimepiride (Verified Allergy, Intermediate, 04/01/20) strawberry (Verified Allergy, Mild, SORES IN MOUTH, 04/01/20) blue dye (Verified Allergy, Unknown, 04/01/20) pregabalin (Verified Allergy, Unknown, 04/01/20) amoxicillin (Verified Adverse Reaction, Intermediate, VOMITING, 04/01/20) clavulanic acid (Verified Adverse Reaction, Intermediate, VOMITING, 04/01/20) codeine (Verified Adverse Reaction, Intermediate, NAUSEA, 04/01/20) duloxetine (Verified Adverse Reaction, Intermediate, INSOMNIA, 04/01/20) gabapentin (Verified Adverse Reaction, Intermediate, CONFUSION, 04/01/20) trazodone (Verified Adverse Reaction, Intermediate, CONFUSION, 04/01/20) Wygnwmn-Zua-Rtm Reductase Inhibitor (Verified Adverse Reaction, Mild, LEG CRAMPS, 04/01/20) phenol (Verified Adverse Reaction, Mild, "FEELS WEIRD", 04/01/20) exenatide (Verified Adverse Reaction, Unknown, ITCHINESS, 04/01/20) Vital Signs Vital Signs Date Time Temp Pulse Resp B/P (MAP) Pulse Ox O2 Delivery O2 Flow Rate FiO2 12/03/20 08:25 78 198/90 12/03/20 05:23 97.8 19 93 Room Air Laboratory Data Labs 24H Laboratory Tests 2 12/02/20 11:46: Bedside Glucose (Misc Panel) 95 12/02/20 16:38: Bedside Glucose (Misc Panel) 157H 12/02/20 19:20: Bedside Glucose (Misc Panel) 164H 12/03/20 04:55: Bedside Glucose (Misc Panel) 88 Microbiology Microbiology 11/30/20 Urine Culture - Final, Complete Current Medications Current Medications Current Medications Medications (Trade) Dose Ordered Sig/Marialuisa Route PRN Reason Start Time Stop Time Status Last Admin Dose Admin Acetaminophen (Tylenol Tab) 650 mg Q4HP PRN PO MILD PAIN (PS 1-4) 11/29/20 14:15 12/03/20 08:28 Amlodipine Besylate (Norvasc) 10 mg DAILY PO 11/30/20 09:00 12/03/20 08:25 Aspirin (Ecotrin) 81 mg DAILY PO 11/30/20 09:00 12/03/20 08:26 Bupropion HCl (Wellbutrin Xl) 300 mg DAILY PO 11/30/20 09:00 12/03/20 08:21 Calcium Polycarbophil (Fiber Con) 1 ea DAILY PO 11/30/20 09:00 12/03/20 08:21 Clopidogrel Bisulfate (PLAVix) 75 mg DAILY PO 11/30/20 09:00 12/03/20 08:21 Dextrose (Dextrose 50%) 25 ml ASDIRECTED PRN IV SEE LABEL COMMENTS 11/29/20 15:35 Divalproex Sodium (Depakote Er) 500 mg DAILY PO 11/30/20 09:00 12/03/20 08:26 Glucagon (Glucagon) 1 mg ASDIRECTED PRN SC SEE LABEL COMMENTS 11/29/20 15:35 Glucose (Glucose) 16 GM ASDIRECTED PRN PO SEE LABEL COMMENTS 11/29/20 15:35 Home Med (Med Rec Complete!) ASDIRECTED XX 11/29/20 14:40 11/29/20 14:39 DC Hydralazine HCl (Apresoline) 25 mg QID PO 11/29/20 21:00 12/01/20 23:48 DC 12/01/20 20:55 Hydralazine HCl (Apresoline) 25 mg TID PO 11/29/20 16:00 11/29/20 17:55 DC 11/29/20 16:14 Hydralazine HCl (Apresoline) 50 mg Q6H PO 12/02/20 03:00 12/03/20 08:22 Insulin Detemir (Levemir Insulin) 22 units QHS SC 11/29/20 21:00 12/02/20 21:14 Insulin Human Lispro (HumaLOG INSULIN) See Protocol Table AC SC 11/29/20 17:30 12/02/20 16:45 Insulin Human Lispro (HumaLOG INSULIN) See Protocol Table QHS SC 11/29/20 21:00 Lorazepam (Ativan) 1 mg QHS PO 11/29/20 21:00 12/02/20 21:13 Meclizine HCl (Antivert) 25 mg BID PO 11/29/20 21:00 12/03/20 08:23 Metoprolol Tartrate (Lopressor) 25 mg Q8H PO 12/03/20 06:00 Multivitamins (Theragram-M) 1 tab DAILY PO 11/29/20 09:00 12/03/20 08:21 Nitroglycerin (Nitrostat (1/ 150)) 0.4 mg Q15MP PRN SL CHEST PAIN 11/29/20 15:35 Omeprazole (PriLOSEC) 40 mg DAILY PO 11/30/20 09:00 12/03/20 08:21 Sertraline HCl (Zoloft) 150 mg DAILY PO 11/30/20 09:00 12/03/20 08:24 MONALISA BURTON MD Dec 03, 2020 10:55
[2020-12-03 14:00] VITALS: BP 142/58
[2020-12-03] MEDS: FUROSEMIDE 20 MG TAB PO SCH (15:08)
[2020-12-03] MEDS: COMBIVENT RESPIMAT 100-20MCG INHALER 4GM INH SCH ×2 (15:24→19:29)
[2020-12-03 19:56] VITALS: BP 144/76
[2020-12-03] MEDS: LORazepam 1 MG TAB PO SCH (21:22)
[2020-12-03] MEDS: LEVEMIR (INSULIN DETEMIR) 1 UNITS/0.01ML SC SCH (21:23)
[2020-12-03] MEDS: cloNIDine 0.1MG TABLET PO SCH (21:23)
[2020-12-04] VITALS (7 sets, daily range): BP systolic 138–152; BP diastolic 60–78
[2020-12-04] MEDS: **hydrALAZINE** 50 MG TAB PO SCH ×4 (03:14→20:51)
[2020-12-04] MEDS: COMBIVENT RESPIMAT 100-20MCG INHALER 4GM INH SCH ×3 (06:59→20:00)
[2020-12-04] MEDS: HumaLOG INSULIN (NovoLOG) PER UNIT SC SCH ×4 (07:30→20:54)
[2020-12-04 07:43] LABS: BASO # 0.1 10^3/uL (0.0-0.2); EOS # 0.3 10^3/uL (0.0-0.5); HEMATOCRIT 36.5 % (36.0-47.0); HEMOGLOBIN 11.4 g/dl (12.0-15.5); LYMPH # 1.3 10^3/uL (1.5-5.0); LYMPH % 19.1 % (24.0-44.0); MEAN CORPUSCULAR HEMOGLOBIN 30.4 pg (27.0-33.0); MEAN CORPUSCULAR HGB CONC 31.2 g/dl (32.0-36.5); MEAN CORPUSCULAR VOLUME 97.3 fl (80.0-96.0); MONO # 0.7 10^3/uL (0.0-0.8); MONO % 10.4 % (2.0-8.0); NEUTROPHILS # 4.4 10^3/uL (1.5-8.5); NEUTROPHILS % 64.2 % (36.0-66.0); PLATELET COUNT, AUTOMATED 316 10^3/uL (150-450); RED BLOOD COUNT 3.75 10^6/uL (4.00-5.40); WHITE BLOOD COUNT 6.9 10^3/uL (4.0-10.0)
[2020-12-04] MEDS: ACETAMINOPHEN TAB 650MG DOSE (2X325MG) PO PRN (07:57)
[2020-12-04] MEDS: MULTIVITAMINS/MINERALS THERAP 1 TAB PO SCH (07:58)
[2020-12-04] MEDS: FIBER-CON 625 MG TAB PO SCH (07:58)
[2020-12-04] MEDS: OMEPRAZOLE 20 MG CAP PO SCH (07:59)
[2020-12-04] MEDS: MECLIZINE 25 MG TABLET PO SCH ×2 (07:59→20:51)
[2020-12-04] MEDS: buPROPion **XL** TABLET 150MG (WELLBUTRIN XL) PO SCH (07:59)
[2020-12-04] MEDS: ASPIRIN 81MG ENTERIC TABLET PO SCH (07:59)
[2020-12-04] MEDS: SERTRALINE HCL 50 MG TAB PO SCH (08:00)
[2020-12-04] MEDS: CLOPIDOGREL 75 MG TAB PO SCH (08:00)
[2020-12-04] MEDS: FUROSEMIDE 20 MG TAB PO SCH (08:00)
[2020-12-04] MEDS: cloNIDine 0.1MG TABLET PO SCH ×2 (08:01→20:51)
[2020-12-04] MEDS: DIVALPROEX 500MG *ER* TAB PO SCH (08:02)
[2020-12-04 08:04] LABS: CALCIUM LEVEL 10.1 MG/DL (8.8-10.2); GLOMERULAR FILTRATION RATE 57.1 (>39); POTASSIUM SERUM 4.1 MEQ/L (3.5-5.1)
--- NOTE | 2020-12-04 08:51 | IPNPDOC ---
PM&R Progress Note DATE OF SERVICE: Dec 04, 2020 Specimen Technician Progress Note Subjective: Patient seen in her room stating she is feeling better and would like her tylenol scheduled for her headaches which are also improving. REVIEW OF SYSTEMS: The following is a completed review of systems and has been reviewed. Review of systems otherwise unremarkable. PAIN: Patient self reports recent recurrence of right frontal headache. EYES: Significant peripheral visual loss EARS, NOSE, & THROAT: No throat pain, notes intermittent discharge and speech impediment from accidental uvulectomy during the tonsillectomy as a child. CARDIOVASCULAR: Denies recent chest pain or palpitations. PULMONARY: Denies shortness of breath. GASTROINTESTINAL: has had frequent recurrent diarrhea. GENITOURINARY: . Continent MUSCULOSKELETAL: . Generalized aches and pains, bilateral lower extremity pain, right worse than left, left shoulder girdle pain. NEUROLOGICAL:. Generalized weakness and visual loss. Prior history of migraines HEMATOLOGICAL: . Admits to easy bruising SKIN: . No acute changes PSYCHIATRIC: Unremarkable. All other review of systems found to be negative. PHYSICAL EXAMINATION: VITAL SIGNS: Please see below. GENERAL: Pleasant and cooperative. Mild distress. Alert and oriented times three. HEENT: Pupils pinpoint.. Extraocular movements decreased bilateral gaze. Clear conjunctiva, no adenopathy or thyromegaly. Absent uvula, moist mucosa. Full cervical range of motion without tenderness or spasm. CARDIOVASCULAR: Regular rate and rhythm. LUNGS: Clear to auscultation bilaterally. No wheezes. No rhonchi. ABDOMEN: Soft, nontender, nondistended. Positive normal active bowel sounds, no organomegaly. NEUROLOGICAL: Cranial nerves II through XII noted for constricted visual luna, tongue deviates slightly to right. Sensation grossly intact. Reflexes 2 + and symmetric bilateral biceps, triceps, brachial radialis, Babinski s positive alice aterally. EXTREMITIES: 5/5 right 4/5 left repairer switchgear, elbow flexion, elbow extension, knee extension, foot dorsiflexion, plantar flexion. SKIN: .intact LABORATORY DATA: Please see below. IMAGING: CT Head without contrast 11/22/20: Impression: Small rounded low-density area within the right basal ganglia/thalamus may represent subacute infarction and should be correlated with symptoms. Chronic atrophy and microvascular ischemic changes. No intracranial hemorrhage, extra-axial hemorrhage, or edema/mass effect. Brain MRI w/out contrast 11/22/20:Impression: Focal acute infarcts involving the right thalamus and right medial occipital lobe. Brain MRA w/out contrast 11/22/20: Impression: No stenosis or occlusion. Chest Xray 11/22/20: Impression: Chronic appearing changes as described above including possible chronic pulmonary vascular congestion. 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 PLAN: 1. Rehab- PT/OT advance gait and ADls, strengthen/stretch/maintain ROM all 4 limbs. We'll closely monitor blood pressure and other parameters to optimize possible capacity to participate. 2. Neuro- regular neuro checks, Stroke rehabilitation protocol 3. Ortho- history of low back and radicular pain,minimally responsive to epidural as well as left shoulder girdle pain, probable bicipital tendinitis on the affected side. Well incorporate usual therapy modalities and awareness of risk for exacerbation of symptoms with use of assistive device. Possibly Biofreeze or Flector patch may be helpful 4. Cardiac- -HTN patient with elevated BPs, c/u increased dose of hydralazine, will avoid beta-blockers per hx of heart block, c/u amlodipine, BPs improving with clonidine 1mg BID, c/u low dose lasix while monitoring kidney function -HLD- dietary and statin 5. Resp -incentive spirometry, monitor for infection -c/u combivent, cough improving, c/u to monitor- no fever or chills 6. Endo- levemir and ISS, patient with mild hypoglycemia, c/u to monitor and adjust 7. - reportedly, patient has history of right renal atrophy and to nond iagnostic. Renal Dopplers in the past limited noncontrast MRA of the renal artery that did not reveal etiology of hypertension continue bladder program. -patient voiding well 8. GI ppx- PPI additional Metamucil to bulk stool and attempt to deangelo chronic diarrhea 9. Dispo- patient will require ongoing rehab both for functional needs that she continues to have and to continue adjusting her blood pressure medications to reduce risk of stroke, will watch her respiratory status as well given new cough Allergies Coded Allergies: glimepiride (Verified Allergy, Intermediate, 04/01/20) strawberry (Verified Allergy, Mild, SORES IN MOUTH, 04/01/20) blue dye (Verified Allergy, Unknown, 04/01/20) pregabalin (Verified Allergy, Unknown, 04/01/20) amoxicillin (Verified Adverse Reaction, Intermediate, VOMITING, 04/01/20) clavulanic acid (Verified Adverse Reaction, Intermediate, VOMITING, 04/01/20) codeine (Verified Adverse Reaction, Intermediate, NAUSEA, 04/01/20) duloxetine (Verified Adverse Reaction, Intermediate, INSOMNIA, 04/01/20) gabapentin (Verified Adverse Reaction, Intermediate, CONFUSION, 04/01/20) trazodone (Verified Adverse Reaction, Intermediate, CONFUSION, 04/01/20) Vzrnwmq-Wmc-Ium Reductase Inhibitor (Verified Adverse Reaction, Mild, LEG CRAMPS, 04/01/20) phenol (Verified Adverse Reaction, Mild, "FEELS WEIRD", 04/01/20) exenatide (Verified Adverse Reaction, Unknown, ITCHINESS, 04/01/20) Vital Signs Vital Signs Date Time Temp Pulse Resp B/P (MAP) Pulse Ox O2 Delivery O2 Flow Rate FiO2 12/04/20 08:01 72 152/62 12/04/20 03:11 97.8 16 93 Room Air Laboratory Data CBC/BMP Laboratory Tests 12/04/20 06:37 Labs 24H Laboratory Tests 2 12/03/20 11:43: Bedside Glucose (Misc Panel) 131H 12/03/20 16:28: Bedside Glucose (Misc Panel) 105 12/03/20 19:53: Bedside Glucose (Misc Panel) 255H 12/04/20 06:37: Immature Granulocyte % (Auto) 0.3, Neutrophils (%) (Auto) 64.2, Lymphocytes (%) (Auto) 19.1L, Monocytes (%) (Auto) 10.4H, Eosinophils (%) (Auto) 5.0H, Basophils (%) (Auto) 1.0, Neutrophils # (Auto) 4.4, Lymphocytes # (Auto) 1.3L, Monocytes # (Auto) 0.7, Eosinophils # (Auto) 0.3, Basophils # (Auto) 0.1, Nucleated Red Blood Cells % (auto) 0.0, Anion Gap 5L, Glomerular Filtration Rate 57.1, Calcium Level 10.1 Microbiology Microbiology 11/30/20 Urine Culture - Final, Complete Current Medications Current Medications Current Medications Medications (Trade) Dose Ordered Sig/Marialuisa Route PRN Reason Start Time Stop Time Status Last Admin Dose Admin Acetaminophen (Tylenol Tab) 650 mg Q4HP PRN PO MILD PAIN (PS 1-4) 11/29/20 14:15 12/04/20 07:57 Albuterol/ Ipratropium (Combivent Respimat 100-20mcg) 1 puff RTID INH 12/03/20 14:00 12/04/20 06:59 Amlodipine Besylate (Norvasc) 10 mg DAILY PO 11/30/20 09:00 12/04/20 08:01 Aspirin (Ecotrin) 81 mg DAILY PO 11/30/20 09:00 12/04/20 07:59 Bupropion HCl (Wellbutrin Xl) 300 mg DAILY PO 11/30/20 09:00 12/04/20 07:59 Calcium Polycarbophil (Fiber Con) 1 ea DAILY PO 11/30/20 09:00 12/04/20 07:58 Clonidine HCl (Catapres) 0.1 mg BID PO 12/03/20 21:00 12/04/20 08:01 Clopidogrel Bisulfate (PLAVix) 75 mg DAILY PO 11/30/20 09:00 12/04/20 08:00 Dextrose (Dextrose 50%) 25 ml ASDIRECTED PRN IV SEE LABEL COMMENTS 11/29/20 15:35 Divalproex Sodium (Depakote Er) 500 mg DAILY PO 11/30/20 09:00 12/04/20 08:02 Furosemide (Lasix) 20 mg DAILY PO 12/03/20 09:00 12/04/20 08:00 Glucagon (Glucagon) 1 mg ASDIRECTED PRN SC SEE LABEL COMMENTS 11/29/20 15:35 Glucose (Glucose) 16 GM ASDIRECTED PRN PO SEE LABEL COMMENTS 11/29/20 15:35 Home Med (Med Rec Complete!) ASDIRECTED XX 11/29/20 14:40 11/29/20 14:39 DC Hydralazine HCl (Apresoline) 25 mg QID PO 11/29/20 21:00 12/01/20 23:48 DC 12/01/20 20:55 Hydralazine HCl (Apresoline) 25 mg TID PO 11/29/20 16:00 11/29/20 17:55 DC 11/29/20 16:14 Hydralazine HCl (Apresoline) 50 mg Q6H PO 12/02/20 03:00 12/04/20 08:01 Insulin Detemir (Levemir Insulin) 22 units QHS SC 11/29/20 21:00 12/03/20 21:23 Insulin Human Lispro (HumaLOG INSULIN) See Protocol Table AC SC 11/29/20 17:30 12/03/20 12:09 Insulin Human Lispro (HumaLOG INSULIN) See Protocol Table QHS SC 11/29/20 21:00 12/03/20 21:24 Lorazepam (Ativan) 1 mg QHS PO 11/29/20 21:00 12/03/20 21:22 Meclizine HCl (Antivert) 25 mg BID PO 11/29/20 21:00 12/04/20 07:59 Metoprolol Tartrate (Lopressor) 25 mg Q8H PO 12/03/20 06:00 12/03/20 14:02 DC 12/03/20 11:22 Multivitamins (Theragram-M) 1 tab DAILY PO 11/29/20 09:00 12/04/20 07:58 Nitroglycerin (Nitrostat (1/ 150)) 0.4 mg Q15MP PRN SL CHEST PAIN 11/29/20 15:35 Omeprazole (PriLOSEC) 40 mg DAILY PO 11/30/20 09:00 12/04/20 07:59 Sertraline HCl (Zoloft) 150 mg DAILY PO 11/30/20 09:00 12/04/20 08:00 MONALISA BURTON MD Dec 04, 2020 08:51
[2020-12-04 09:16] LABS: VALPROIC ACID (DEPAKOTE) 23.4 UG/ML (50.0-100.0)
[2020-12-04] MEDS: ACETAMINOPHEN 500 MG TAB PO SCH ×2 (13:35→20:52)
[2020-12-04] MEDS: LORazepam 1 MG TAB PO SCH (20:52)
[2020-12-04] MEDS ORDERED: LEVEMIR (INSULIN DETEMIR) 1 UNITS/0.01ML SC SCH (21:00)
[2020-12-05] MEDS: **hydrALAZINE** 50 MG TAB PO SCH ×4 (03:02→21:03)
[2020-12-05 06:00] VITALS: BP 158/64
[2020-12-05] MEDS: ACETAMINOPHEN 500 MG TAB PO SCH ×3 (06:03→21:04)
[2020-12-05] MEDS: COMBIVENT RESPIMAT 100-20MCG INHALER 4GM INH SCH ×3 (07:03→19:16)
[2020-12-05] MEDS: HumaLOG INSULIN (NovoLOG) PER UNIT SC SCH ×4 (07:30→21:00)
[2020-12-05] MEDS: MULTIVITAMINS/MINERALS THERAP 1 TAB PO SCH (08:51)
[2020-12-05] MEDS: buPROPion **XL** TABLET 150MG (WELLBUTRIN XL) PO SCH (08:51)
[2020-12-05] MEDS: OMEPRAZOLE 20 MG CAP PO SCH (08:51)
[2020-12-05] MEDS: cloNIDine 0.1MG TABLET PO SCH (08:52)
[2020-12-05] MEDS: ASPIRIN 81MG ENTERIC TABLET PO SCH (08:52)
[2020-12-05] MEDS: SERTRALINE HCL 50 MG TAB PO SCH (08:53)
[2020-12-05] MEDS: DIVALPROEX 500MG *ER* TAB PO SCH (08:53)
[2020-12-05] MEDS: MECLIZINE 25 MG TABLET PO SCH ×2 (08:53→21:03)
[2020-12-05] MEDS: FUROSEMIDE 20 MG TAB PO SCH (08:53)
[2020-12-05] MEDS: FIBER-CON 625 MG TAB PO SCH (08:53)
[2020-12-05] MEDS: CLOPIDOGREL 75 MG TAB PO SCH (08:53)
[2020-12-05 10:00] VITALS: BP 150/72
--- NOTE | 2020-12-05 10:41 | IPNPDOC ---
PM&R Progress Note DATE OF SERVICE: Dec 05, 2020 Econometrician Progress Note Subjective: patient states she feels ready to go home on wednesday and denies any new weakness. REVIEW OF SYSTEMS: The following is a completed review of systems and has been reviewed. Review of systems otherwise unremarkable. PAIN: Patient self reports recent recurrence of right frontal headache. EYES: Significant peripheral visual loss EARS, NOSE, & THROAT: No throat pain, notes intermittent discharge and speech impediment from accidental uvulectomy during the tonsillectomy as a child. CARDIOVASCULAR: Denies recent chest pain or palpitations. PULMONARY: Denies shortness of breath. GASTROINTESTINAL: has had frequent recurrent diarrhea. GENITOURINARY: . Continent MUSCULOSKELETAL: . Generalized aches and pains, bilateral lower extremity pain, right worse than left, left shoulder girdle pain. NEUROLOGICAL:. Generalized weakness and visual loss. Prior history of migraines HEMATOLOGICAL: . Admits to easy bruising SKIN: . No acute changes PSYCHIATRIC: Unremarkable. All other review of systems found to be negative. PHYSICAL EXAMINATION: VITAL SIGNS: Please see below. GENERAL: Pleasant and cooperative. Mild distress. Alert and oriented times three. HEENT: Pupils pinpoint.. Extraocular movements decreased bilateral gaze. Clear conjunctiva, no adenopathy or thyromegaly. Absent uvula, moist mucosa. Full cervical range of motion without tenderness or spasm. CARDIOVASCULAR: Regular rate and rhythm. LUNGS: Clear to auscultation bilaterally. No wheezes. No rhonchi. ABDOMEN: Soft, nontender, nondistended. Positive normal active bowel sounds, no organomegaly. NEUROLOGICAL: Cranial nerves II through XII noted for constricted visual luna, tongue deviates slightly to right. Sensation grossly intact. Reflexes 2 + and symmetric bilateral biceps, triceps, brachial radialis, Babinski s positive bilaterally. 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 SKIN: .intact LABORATORY DATA: Please see below. IMAGING: CT Head without contrast 11/22/20: Impression: Small rounded low-density area within the right basal ganglia/thalamus may represent subacute infarction and should be correlated with symptoms. Chronic atrophy and microvascular ischemic changes. No intracranial hemorrhage, extra-axial hemorrhage, or edema/mass effect. Brain MRI w/out contrast 11/22/20:Impression: Focal acute infarcts involving the right thalamus and right medial occipital lobe. Brain MRA w/out contrast 11/22/20: Impression: No stenosis or occlusion. Chest Xray 11/22/20: Impression: Chronic appearing changes as described above including possible chronic pulmonary vascular congestion. 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 PLAN: 1. Rehab- PT/OT advance gait and ADls, strengthen/stretch/maintain ROM all 4 limbs. We'll closely monitor blood pressure and other parameters to optimize possible capacity to participate. 2. Neuro- regular neuro checks, Stroke rehabilitation protocol -on depakote for migraines- levels are low, will need follow-up with neurology shortly after discharge for further management 3. Ortho- history of low back and radicular pain,minimally responsive to epidural as well as left shoulder girdle pain, probable bicipital tendinitis on the affected side-patient not complaining of back/arm pain currently 4. Cardiac- -HTN patient with elevated BPs, c/u increased dose of hydralazine, will avoid beta-blockers per hx of heart block, c/u amlodipine, BPs improving with clonidine, trying higher dose 2 mg BID, c/u low dose lasix while monitoring kidney function -HLD- dietary and statin 5. Resp -incentive spirometry, monitor for infection -c/u combivent, cough improving, c/u to monitor- no fever or chills 6. Endo- levemir and ISS, patient with mild hypoglycemia, c/u to monitor and adjust, will lower evening levemir to 5 units 7. - reportedly, patient has history of right renal atrophy and to nondiagnostic. Renal Dopplers in the past limited noncontrast MRA of the renal artery that did not reveal etiology of hypertension continue bladder program. -patient voiding well 8. GI ppx- PPI additional Metamucil to bulk stool and attempt to deangelo chronic diarrhea 9. Dispo- to home goal 12-07-20 Allergies Coded Allergies: glimepiride (Verified Allergy, Intermediate, 04/01/20) strawberry (Verified Allergy, Mild, SORES IN MOUTH, 04/01/20) blue dye (Verified Allergy, Unknown, 04/01/20) pregabalin (Verified Allergy, Unknown, 04/01/20) amoxicillin (Verified Adverse Reaction, Intermediate, VOMITING, 04/01/20) clavulanic acid (Verified Adverse Reaction, Intermediate, VOMITING, 04/01/20) codeine (Verified Adverse Reaction, Intermediate, NAUSEA, 04/01/20) duloxetine (Verified Adverse Reaction, Intermediate, INSOMNIA, 04/01/20) gabapentin (Verified Adverse Reaction, Intermediate, CONFUSION, 04/01/20) trazodone (Verified Adverse Reaction, Intermediate, CONFUSION, 04/01/20) Mnydnxu-Toa-Rgj Reductase Inhibitor (Verified Adverse Reaction, Mild, LEG CRAMPS, 04/01/20) phenol (Verified Adverse Reaction, Mild, "FEELS WEIRD", 04/01/20) exenatide (Verified Adverse Reaction, Unknown, ITCHINESS, 04/01/20) Vital Signs Vital Signs Date Time Temp Pulse Resp B/P (MAP) Pulse Ox O2 Delivery O2 Flow Rate FiO2 12/05/20 08:52 156/66 12/05/20 06:00 97.9 67 18 95 Room Air Laboratory Data Labs 24H Laboratory Tests 2 12/04/20 11:45: Bedside Glucose (Misc Panel) 179H 12/04/20 16:37: Bedside Glucose (Misc Panel) 94 12/04/20 20:48: Bedside Glucose (Misc Panel) 157H 12/05/20 05:29: Bedside Glucose (Misc Panel) 81L Microbiology Microbiology 11/30/20 Urine Culture - Final, Complete Current Medications Current Medications Current Medications Medications (Trade) Dose Ordered Sig/Marialuisa Route PRN Reason Start Time Stop Time Status Last Admin Dose Admin Acetaminophen (Tylenol Tab) 650 mg Q4HP PRN PO MILD PAIN (PS 1-4) 11/29/20 14:15 12/04/20 12:50 DC 12/04/20 07:57 Acetaminophen (Tylenol Tab) 1,000 mg TID PO 12/04/20 13:30 12/05/20 06:03 Albuterol/ Ipratropium (Combivent Respimat 100-20mcg) 1 puff RTID INH 12/03/20 14:00 12/05/20 07:03 Amlodipine Besylate (Norvasc) 10 mg DAILY PO 11/30/20 09:00 12/05/20 08:52 Aspirin (Ecotrin) 81 mg DAILY PO 11/30/20 09:00 12/05/20 08:52 Bupropion HCl (Wellbutrin Xl) 300 mg DAILY PO 11/30/20 09:00 12/05/20 08:51 Calcium Polycarbophil (Fiber Con) 1 ea DAILY PO 11/30/20 09:00 12/05/20 08:53 Clonidine HCl (Catapres) 0.1 mg BID PO 12/03/20 21:00 12/05/20 10:34 DC 12/05/20 08:52 Clonidine HCl (Catapres) 0.2 mg BID PO 12/05/20 21:00 UNV Clopidogrel Bisulfate (PLAVix) 75 mg DAILY PO 11/30/20 09:00 12/05/20 08:53 Dextrose (Dextrose 50%) 25 ml ASDIRECTED PRN IV SEE LABEL COMMENTS 11/29/20 15:35 Divalproex Sodium (Depakote Er) 500 mg DAILY PO 11/30/20 09:00 12/05/20 08:53 Furosemide (Lasix) 20 mg DAILY PO 12/03/20 09:00 12/05/20 08:53 Glucagon (Glucagon) 1 mg ASDIRECTED PRN SC SEE LABEL COMMENTS 11/29/20 15:35 Glucose (Glucose) 16 GM ASDIRECTED PRN PO SEE LABEL COMMENTS 11/29/20 15:35 Home Med (Med Rec Complete!) ASDIRECTED XX 11/29/20 14:40 11/29/20 14:39 DC Hydralazine HCl (Apresoline) 25 mg QID PO 11/29/20 21:00 12/01/20 23:48 DC 12/01/20 20:55 Hydralazine HCl (Apresoline) 25 mg TID PO 11/29/20 16:00 11/29/20 17:55 DC 11/29/20 16:14 Hydralazine HCl (Apresoline) 50 mg Q6H PO 12/02/20 03:00 12/05/20 08:52 Insulin Detemir (Levemir Insulin) 5 units QHS SC 12/05/20 21:00 Insulin Detemir (Levemir Insulin) 15 units QHS SC 12/04/20 21:00 12/05/20 10:31 DC 12/04/20 20:52 Insulin Detemir (Levemir Insulin) 22 units QHS SC 11/29/20 21:00 12/04/20 08:51 DC 12/03/20 21:23 Insulin Human Lispro (HumaLOG INSULIN) See Protocol Table AC SC 11/29/20 17:30 12/04/20 12:05 Insulin Human Lispro (HumaLOG INSULIN) See Protocol Table QHS SC 11/29/20 21:00 12/03/20 21:24 Lorazepam (Ativan) 1 mg QHS PO 11/29/20 21:00 12/04/20 20:52 Meclizine HCl (Antivert) 25 mg BID PO 11/29/20 21:00 12/05/20 08:53 Metoprolol Tartrate (Lopressor) 25 mg Q8H PO 12/03/20 06:00 12/03/20 14:02 DC 12/03/20 11:22 Multivitamins (Theragram-M) 1 tab DAILY PO 11/29/20 09:00 12/05/20 08:51 Nitroglycerin (Nitrostat (1/ 150)) 0.4 mg Q15MP PRN SL CHEST PAIN 11/29/20 15:35 Omeprazole (PriLOSEC) 40 mg DAILY PO 11/30/20 09:00 12/05/20 08:51 Sertraline HCl (Zoloft) 150 mg DAILY PO 11/30/20 09:00 12/05/20 08:53 MONALISA BURTON MD Dec 05, 2020 10:41
[2020-12-05 14:04] VITALS: BP 148/62
[2020-12-05 18:00] VITALS: BP 164/58
[2020-12-05 20:00] VITALS: BP 158/72
[2020-12-05] MEDS: LORazepam 1 MG TAB PO SCH (21:03)
[2020-12-05] MEDS: cloNIDine 0.2 MG TAB PO SCH (21:03)
[2020-12-05] MEDS: LEVEMIR (INSULIN DETEMIR) 1 UNITS/0.01ML SC SCH (21:04)
[2020-12-05 23:12] VITALS: BP 140/60
[2020-12-06] MEDS: **hydrALAZINE** 50 MG TAB PO SCH ×4 (03:07→20:45)
[2020-12-06] MEDS: ACETAMINOPHEN 500 MG TAB PO SCH ×3 (05:09→20:47)
[2020-12-06 06:00] VITALS: BP 158/62
[2020-12-06 06:43] LABS: BASO # 0.1 10^3/uL (0.0-0.2); BASO % 1.1 % (0.0-1.0); EOS # 0.3 10^3/uL (0.0-0.5); EOS % 5.8 % (0.0-3.0); HEMATOCRIT 33.1 % (36.0-47.0); HEMOGLOBIN 10.5 g/dl (12.0-15.5); LYMPH # 1.3 10^3/uL (1.5-5.0); LYMPH % 23.4 % (24.0-44.0); MEAN CORPUSCULAR HEMOGLOBIN 30.5 pg (27.0-33.0); MEAN CORPUSCULAR HGB CONC 31.7 g/dl (32.0-36.5); MEAN CORPUSCULAR VOLUME 96.2 fl (80.0-96.0); MONO # 0.6 10^3/uL (0.0-0.8); MONO % 10.8 % (2.0-8.0); NEUTROPHILS # 3.1 10^3/uL (1.5-8.5); NEUTROPHILS % 58.7 % (36.0-66.0); PLATELET COUNT, AUTOMATED 307 10^3/uL (150-450); RED BLOOD COUNT 3.44 10^6/uL (4.00-5.40); WHITE BLOOD COUNT 5.4 10^3/uL (4.0-10.0)
[2020-12-06] MEDS: COMBIVENT RESPIMAT 100-20MCG INHALER 4GM INH SCH ×3 (07:07→20:30)
[2020-12-06 07:10] LABS: CALCIUM LEVEL 9.5 MG/DL (8.8-10.2); CREATININE FOR GFR 1.04 MG/DL (0.55-1.30); GLOMERULAR FILTRATION RATE 54.6 (>39); POTASSIUM SERUM 4.1 MEQ/L (3.5-5.1)
[2020-12-06] MEDS: OMEPRAZOLE 20 MG CAP PO SCH (08:33)
[2020-12-06] MEDS: MULTIVITAMINS/MINERALS THERAP 1 TAB PO SCH (08:33)
[2020-12-06] MEDS: buPROPion **XL** TABLET 150MG (WELLBUTRIN XL) PO SCH (08:33)
[2020-12-06] MEDS: cloNIDine 0.2 MG TAB PO SCH ×2 (08:33→20:44)
[2020-12-06] MEDS: CLOPIDOGREL 75 MG TAB PO SCH (08:34)
[2020-12-06] MEDS: SERTRALINE HCL 50 MG TAB PO SCH (08:34)
[2020-12-06] MEDS: ASPIRIN 81MG ENTERIC TABLET PO SCH (08:34)
[2020-12-06] MEDS: FUROSEMIDE 20 MG TAB PO SCH (08:35)
[2020-12-06] MEDS: FIBER-CON 625 MG TAB PO SCH (08:35)
[2020-12-06] MEDS: MECLIZINE 25 MG TABLET PO SCH ×2 (08:35→20:44)
[2020-12-06] MEDS: DIVALPROEX 500MG *ER* TAB PO SCH (08:36)
[2020-12-06] MEDS: HumaLOG INSULIN (NovoLOG) PER UNIT SC SCH ×4 (08:38→20:45)
[2020-12-06] MEDS ORDERED: DEPA500T2 PO (09:29)
[2020-12-06] MEDS ORDERED: OMEP40CA4 PO (09:29)
[2020-12-06] MEDS ORDERED: MECL-86 PO (09:29)
[2020-12-06] MEDS ORDERED: FURO20TA2 PO (09:29)
[2020-12-06] MEDS ORDERED: AMLO1TAB25 PO (09:29)
[2020-12-06] MEDS ORDERED: SERT50TA29 PO (09:29)
[2020-12-06] MEDS ORDERED: NITR4TASL SL (09:29)
[2020-12-06] MEDS ORDERED: ASPI-551 PO (09:29)
[2020-12-06] MEDS ORDERED: BUPR150T12 PO (09:29)
[2020-12-06] MEDS ORDERED: CLON0.2T PO (09:29)
[2020-12-06] MEDS ORDERED: HYDR50TA PO (09:29)
[2020-12-06] MEDS ORDERED: CLOP75TA2 PO (09:29)
[2020-12-06 10:00] VITALS: BP 122/58
--- NOTE | 2020-12-06 11:27 | IPNPDOC ---
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 Review of systems otherwise unremarkable. PAIN: Patient self reports recent recurrence of right frontal headache. EYES: Significant peripheral visual loss EARS, NOSE, & THROAT: No throat pain, notes intermittent discharge and speech impediment from accidental uvulectomy during the tonsillectomy as a child. CARDIOVASCULAR: Denies recent chest pain or palpitations. PULMONARY: Denies shortness of breath. GASTROINTESTINAL: has had frequent recurrent diarrhea. GENITOURINARY: . Continent MUSCULOSKELETAL: . Generalized aches and pains, bilateral lower extremity pain, right worse than left, left shoulder girdle pain. NEUROLOGICAL:. Generalized weakness and visual loss. Prior history of migraines HEMATOLOGICAL: . Admits to easy bruising SKIN: . No acute changes PSYCHIATRIC: Unremarkable. All other review of systems found to be negative. PHYSICAL EXAMINATION: VITAL SIGNS: Please see below. GENERAL: Pleasant and cooperative. Mild distress. Alert and oriented times three. HEENT: Pupils pinpoint.. Extraocular movements decreased bilateral gaze. Clear conjunctiva, no adenopathy or thyromegaly. Absent uvula, moist mucosa. Full cervical range of motion without tenderness or spasm. CARDIOVASCULAR: Regular rate and rhythm. LUNGS: Clear to auscultation bilaterally. No wheezes. No rhonchi. ABDOMEN: Soft, nontender, nondistended. Positive normal active bowel sounds, no organomegaly. NEUROLOGICAL: Cranial nerves II through XII noted for constricted visual luna, tongue deviates slightly to right. Sensation grossly intact. Reflexes 2 + and symmetric bilateral biceps, triceps, brachial radialis, Babinski s positive bilaterally. 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 SKIN: .intact LABORATORY DATA: Please see below. IMAGING: CT Head without contrast 11/22/20: Impression: Small rounded low-density area within the right basal ganglia/thalamus may represent subacute infarction and should be correlated with symptoms. Chronic atrophy and microvascular ischemic changes. No intracranial hemorrhage, extra-axial hemorrhage, or edema/mass effect. Brain MRI w/out contrast 11/22/20:Impression: Focal acute infarcts involving the right thalamus and right medial occipital lobe. Brain MRA w/out contrast 11/22/20: Impression: No stenosis or occlusion. Chest Xray 11/22/20: Impression: Chronic appearing changes as described above including possible chronic pulmonary vascular congestion. 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 PLAN: 1. Rehab- PT/OT advance gait and ADls, strengthen/stretch/maintain ROM all 4 limbs. We'll closely monitor blood pressure and other parameters to optimize possible capacity to participate. 2. Neuro- regular neuro checks, Stroke rehabilitation protocol -on depakote for migraines- levels are low, will need follow-up with neurology shortly after discharge for further management 3. Ortho- history of low back and radicular pain,minimally responsive to epidural as well as left shoulder girdle pain, probable bicipital tendinitis on the affected side-patient not complaining of back/arm pain currently 4. Cardiac- -HTN patient with elevated BPs, c/u increased dose of hydralazine, will avoid beta-blockers per hx of heart block, c/u amlodipine, BPs improving with clonidine, trying higher dose 2 mg BID, c/u low dose lasix while monitoring kidney function -HLD- dietary and statin 5. Resp -incentive spirometry, monitor for infection -c/u combivent, cough improving, c/u to monitor- no fever or chills 6. Endo- levemir and ISS, patient with mild hypoglycemia, c/u to monitor and adjust, will lower evening levemir to 5 units 7. - reportedly, patient has history of right renal atrophy and to nondiagnostic. Renal Dopplers in the past limited noncontrast MRA of the renal artery that did not reveal etiology of hypertension continue bladder program. -patient voiding well 8. GI ppx- PPI additional Metamucil to bulk stool and attempt to deangelo chronic diarrhea 9. Dispo- to home goal 12-07-20 Allergies Coded Allergies: glimepiride (Verified Allergy, Intermediate, 04/01/20) strawberry (Verified Allergy, Mild, SORES IN MOUTH, 04/01/20) blue dye (Verified Allergy, Unknown, 04/01/20) pregabalin (Verified Allergy, Unknown, 04/01/20) amoxicillin (Verified Adverse Reaction, Intermediate, VOMITING, 04/01/20) clavulanic acid (Verified Adverse Reaction, Intermediate, VOMITING, 04/01/20) codeine (Verified Adverse Reaction, Intermediate, NAUSEA, 04/01/20) duloxetine (Verified Adverse Reaction, Intermediate, INSOMNIA, 04/01/20) gabapentin (Verified Adverse Reaction, Intermediate, CONFUSION, 04/01/20) trazodone (Verified Adverse Reaction, Intermediate, CONFUSION, 04/01/20) Mtjvbcc-Qpz-Jai Reductase Inhibitor (Verified Adverse Reaction, Mild, LEG CRAMPS, 04/01/20) phenol (Verified Adverse Reaction, Mild, "FEELS WEIRD", 04/01/20) exenatide (Verified Adverse Reaction, Unknown, ITCHINESS, 04/01/20) Vital Signs Vital Signs Date Time Temp Pulse Resp B/P (MAP) Pulse Ox O2 Delivery O2 Flow Rate FiO2 12/06/20 10:00 97.9 60 18 122/58 (79) 94 Room Air Laboratory Data CBC/BMP Laboratory Tests 12/06/20 06:12 Labs 24H Laboratory Tests 2 12/05/20 11:32: Bedside Glucose (Misc Panel) 129H 12/05/20 19:43: Bedside Glucose (Misc Panel) 148H 12/06/20 05:10: Bedside Glucose (Misc Panel) 126H 12/06/20 06:12: Immature Granulocyte % (Auto) 0.2, Neutrophils (%) (Auto) 58.7, Lymphocytes (%) (Auto) 23.4L, Monocytes (%) (Auto) 10.8H, Eosinophils (%) (Auto) 5.8H, Basophils (%) (Auto) 1.1H, Neutrophils # (Auto) 3.1, Lymphocytes # (Auto) 1.3L, Monocytes # (Auto) 0.6, Eosinophils # (Auto) 0.3, Basophils # (Auto) 0.1, Nucleated Red Blood Cells % (auto) 0.0, Anion Gap 6L, Glomerular Filtration Rate 54.6, Calcium Level 9.5 Microbiology Microbiology 11/30/20 Urine Culture - Final, Complete Current Medications Current Medications Current Medications Medications (Trade) Dose Ordered Sig/Marialuisa Route PRN Reason Start Time Stop Time Status Last Admin Dose Admin Acetaminophen (Tylenol Tab) 650 mg Q4HP PRN PO MILD PAIN (PS 1-4) 11/29/20 14:15 12/04/20 12:50 DC 12/04/20 07:57 Acetaminophen (Tylenol Tab) 1,000 mg DAILY@0600,1400,2200 PO 12/05/20 14:00 12/06/20 05:09 Acetaminophen (Tylenol Tab) 1,000 mg TID PO 12/04/20 13:30 12/05/20 11:58 DC 12/05/20 06:03 Albuterol/ Ipratropium (Combivent Respimat 100-20mcg) 1 puff RTID INH 12/03/20 14:00 12/06/20 07:07 Amlodipine Besylate (Norvasc) 10 mg DAILY PO 11/30/20 09:00 12/06/20 08:35 Aspirin (Ecotrin) 81 mg DAILY PO 11/30/20 09:00 12/06/20 08:34 Bupropion HCl (Wellbutrin Xl) 300 mg DAILY PO 11/30/20 09:00 12/06/20 08:33 Calcium Polycarbophil (Fiber Con) 1 ea DAILY PO 11/30/20 09:00 12/06/20 08:35 Clonidine HCl (Catapres) 0.1 mg BID PO 12/03/20 21:00 12/05/20 10:34 DC 12/05/20 08:52 Clonidine HCl (Catapres) 0.2 mg BID PO 12/05/20 21:00 12/06/20 08:33 Clopidogrel Bisulfate (PLAVix) 75 mg DAILY PO 11/30/20 09:00 12/06/20 08:34 Dextrose (Dextrose 50%) 25 ml ASDIRECTED PRN IV SEE LABEL COMMENTS 11/29/20 15:35 Divalproex Sodium (Depakote Er) 500 mg DAILY PO 11/30/20 09:00 12/06/20 08:36 Furosemide (Lasix) 20 mg DAILY PO 12/03/20 09:00 12/06/20 08:35 Glucagon (Glucagon) 1 mg ASDIRECTED PRN SC SEE LABEL COMMENTS 11/29/20 15:35 Glucose (Glucose) 16 GM ASDIRECTED PRN PO SEE LABEL COMMENTS 11/29/20 15:35 Home Med (Med Rec Complete!) ASDIRECTED XX 11/29/20 14:40 11/29/20 14:39 DC Hydralazine HCl (Apresoline) 25 mg QID PO 11/29/20 21:00 12/01/20 23:48 DC 12/01/20 20:55 Hydralazine HCl (Apresoline) 25 mg TID PO 11/29/20 16:00 11/29/20 17:55 DC 11/29/20 16:14 Hydralazine HCl (Apresoline) 50 mg Q6H PO 12/02/20 03:00 12/06/20 08:34 Insulin Detemir (Levemir Insulin) 5 units QHS NC 12/05/20 21:00 12/05/20 21:04 Insulin Detemir (Levemir Insulin) 15 units QHS NC 12/04/20 21:00 12/05/20 10:31 DC 12/04/20 20:52 Insulin Detemir (Levemir Insulin) 22 units QHS NC 11/29/20 21:00 12/04/20 08:51 DC 12/03/20 21:23 Insulin Human Lispro (HumaLOG INSULIN) See Protocol Table AC NC 11/29/20 17:30 12/06/20 08:38 Insulin Human Lispro (HumaLOG INSULIN) [facility] 11/29/20 21:00 12/03/20 21:24 Lorazepam (Ativan) 1 mg QHS PO 11/29/20 21:00 12/05/20 21:03 Meclizine HCl (Antivert) 25 mg BID PO 11/29/20 21:00 12/06/20 08:35 Metoprolol Tartrate (Lopressor) 25 mg Q8H PO 12/03/20 06:00 12/03/20 14:02 DC 12/03/20 11:22 Multivitamins (Theragram-M) 1 tab DAILY PO 11/29/20 09:00 12/06/20 08:33 Nitroglycerin (Nitrostat (1/ 150)) 0.4 mg Q15MP PRN SL CHEST PAIN 11/29/20 15:35 Omeprazole (PriLOSEC) 40 mg DAILY PO 11/30/20 09:00 12/06/20 08:33 Sertraline HCl (Zoloft) 150 mg DAILY PO 11/30/20 09:00 12/06/20 08:34 MONALISA BURTON MD Dec 06, 2020 11:27
[2020-12-06 14:00] VITALS: BP 142/60
[2020-12-06 20:00] VITALS: BP 132/64
[2020-12-06] MEDS: LEVEMIR (INSULIN DETEMIR) 1 UNITS/0.01ML SC SCH (20:43)
[2020-12-06] MEDS: LORazepam 1 MG TAB PO SCH (20:45)
[2020-12-07] MEDS: **hydrALAZINE** 50 MG TAB PO SCH ×2 (03:09→08:27)
[2020-12-07] MEDS: ACETAMINOPHEN 500 MG TAB PO SCH (05:44)
[2020-12-07 06:00] VITALS: BP 154/58
[2020-12-07] MEDS: COMBIVENT RESPIMAT 100-20MCG INHALER 4GM INH SCH (07:15)
[2020-12-07] MEDS: MULTIVITAMINS/MINERALS THERAP 1 TAB PO SCH (08:22)
[2020-12-07] MEDS: DIVALPROEX 500MG *ER* TAB PO SCH (08:23)
[2020-12-07] MEDS: CLOPIDOGREL 75 MG TAB PO SCH (08:23)
[2020-12-07] MEDS: MECLIZINE 25 MG TABLET PO SCH (08:23)
[2020-12-07] MEDS: ASPIRIN 81MG ENTERIC TABLET PO SCH (08:23)
[2020-12-07] MEDS: SERTRALINE HCL 50 MG TAB PO SCH (08:23)
[2020-12-07] MEDS: OMEPRAZOLE 20 MG CAP PO SCH (08:23)
[2020-12-07] MEDS: buPROPion **XL** TABLET 150MG (WELLBUTRIN XL) PO SCH (08:23)
[2020-12-07] MEDS: FIBER-CON 625 MG TAB PO SCH (08:23)
[2020-12-07] MEDS: HumaLOG INSULIN (NovoLOG) PER UNIT SC SCH ×2 (08:24→12:00)
[2020-12-07 08:27] VITALS: BP 158/60
[2020-12-07] MEDS: FUROSEMIDE 20 MG TAB PO SCH (08:28)
[2020-12-07] MEDS: cloNIDine 0.2 MG TAB PO SCH (08:28)
[2020-12-07 10:00] VITALS: BP 158/58
== END 2020-12-07 13:05 | disposition home health service (06) | DRG 57 ==
LOC: M PM&R 13:45
PROVIDERS: ADMIT Physical Medicine & Rehabilitation; ATTEND Physical Medicine & Rehabilitation
DX: I69.398 Other sequelae of cerebral infarction (principal); I50.32 Chronic diastolic (congestive) heart failure; I13.0 Hypertensive heart and chronic kidney disease with heart failure and stage 1 through stage 4 chronic kidney disease, or unspecified chronic kidney disease; N17.9 Acute kidney failure, unspecified; H53.19 Other subjective visual disturbances; M25.512 Pain in left shoulder; M79.661 Pain in right lower leg; M79.662 Pain in left lower leg; E11.9 Type 2 diabetes mellitus without complications; E78.5 Hyperlipidemia, unspecified; N26.1 Atrophy of kidney (terminal); I25.10 Atherosclerotic heart disease of native coronary artery without angina pectoris; M06.9 Rheumatoid arthritis, unspecified; N18.30 Chronic kidney disease, stage 3 unspecified; K21.9 Gastro-esophageal reflux disease without esophagitis; Z66 Do not resuscitate; F32.9 Major depressive disorder, single episode, unspecified; R42 Dizziness and giddiness; R00.1 Bradycardia, unspecified; R39.15 Urgency of urination; K52.9 Noninfective gastroenteritis and colitis, unspecified; M75.22 Bicipital tendinitis, left shoulder; G43.909 Migraine, unspecified, not intractable, without status migrainosus; M54.9 Dorsalgia, unspecified; Z74.1 Need for assistance with personal care; Z74.09 Other reduced mobility; Z85.3 Personal history of malignant neoplasm of breast; Z96.653 Presence of artificial knee joint, bilateral; Z88.0 Allergy status to penicillin; Z88.5 Allergy status to narcotic agent; Z88.8 Allergy status to other drugs, medicaments and biological substances; Z91.018 Allergy to other foods; Z79.02 Long term (current) use of antithrombotics/antiplatelets; Z79.82 Long term (current) use of aspirin; Z79.4 Long term (current) use of insulin; Z79.899 Other long term (current) drug therapy; Z91.048 Other nonmedicinal substance allergy status

== ENCOUNTER 2021-02-19 12:52 | Emergency (ER) | payer MEDICARE ==
[~2021-02-19] VITALS: Ht 165.1 cm; Wt 90.0 kg
[~2021-02-19 12:52] MED LIST changes: +CLON0.2T PO; +FURO20TA2 PO; +HYDR50TA PO; -KLOR10TA76 PO; +POTA-136 PO
[2021-02-19] MEDS ORDERED: FEXO180T58 PO (13:09)
[2021-02-19] MEDS ORDERED: POTA20TA6 PO (13:09)
[2021-02-19] MEDS ORDERED: CARV3.12 PO (13:09)
[2021-02-19] MEDS ORDERED: HYDR-3911 PO (13:09)
[2021-02-19] MEDS ORDERED: CLON0.3T PO (13:09)
[2021-02-19] MEDS ORDERED: MONT10TA10 PO (13:09)
[2021-02-19] MEDS ORDERED: PRED20TA PO (13:09)
--- NOTE | 2021-02-19 13:31 | REP ---
INDICATION: CHEST PAIN. COMPARISON: 11/28/2020 also portable TECHNIQUE: Portable FINDINGS: The technique utilized in obtaining the radiograph has magnified the cardiac silhouette and accentuated the interstitial markings. Cardiomediastinal silhouette is unchanged. There is cardiomegaly accentuated by technique. The lung luna are unchanged. No acute patchy parenchymal opacities or pleural effusions have developed. There is no change in the osseous structures. IMPRESSION: Stable appearing chronic changes without evidence of acute cardiopulmonary disease. Consider PA and lateral views of the chest. <Electronically signed by Dev Dinh > 02/19/21 [id number]
[2021-02-19 13:33] LABS: BASO % 0.1 % (0.0-1.0); EOS # 0.1 10^3/uL (0.0-0.5); EOS % 0.6 % (0.0-3.0); HEMATOCRIT 37.9 % (36.0-47.0); LYMPH # 0.7 10^3/uL (1.5-5.0); LYMPH % 4.3 % (24.0-44.0); MEAN CORPUSCULAR HEMOGLOBIN 28.2 pg (27.0-33.0); MEAN CORPUSCULAR HGB CONC 31.7 g/dl (32.0-36.5); MONO # 0.7 10^3/uL (0.0-0.8); MONO % 4.2 % (2.0-8.0); NEUTROPHILS # 14.2 10^3/uL (1.5-8.5); PLATELET COUNT, AUTOMATED 488 10^3/uL (150-450); RED BLOOD COUNT 4.26 10^6/uL (4.00-5.40); WHITE BLOOD COUNT 15.8 10^3/uL (4.0-10.0)
[2021-02-19 13:43] LABS: INR 0.93; PROTHROMBIN TIME 12.8 SECONDS (12.7-14.5)
[2021-02-19 14:08] LABS: ALBUMIN 2.4 GM/DL (3.2-5.2); ALT/SGPT 19 U/L (12-78); BILIRUBIN,DIRECT 0.1 MG/DL (0.0-0.2); BILIRUBIN,TOTAL 0.3 MG/DL (0.2-1.0); BLOOD UREA NITROGEN 19 MG/DL (7-18); CALCIUM LEVEL 9.5 MG/DL (8.8-10.2); CARBON DIOXIDE LEVEL 34 MEQ/L (21-32); CHLORIDE LEVEL 98 MEQ/L (98-107); CK-MB VALUE MASS < 1.0 NG/ML (<3.6); CPK CREATINE PHOSPHOKINASE 36 U/L (26-192); CREATININE FOR GFR 1.34 MG/DL (0.55-1.30); FREE T4 1.01 NG/DL (0.76-1.46); GLOMERULAR FILTRATION RATE 40.7 (>39); GLUCOSE, FASTING 135 MG/DL (70-100); LIPASE 688 U/L (73-393); MB/CK RELATIVE INDEX 2.78 (< OR =4); POTASSIUM SERUM 4.5 MEQ/L (3.5-5.1); SODIUM LEVEL 139 MEQ/L (136-145); TOTAL PROTEIN 5.8 GM/DL (6.4-8.2); TROPONIN I 0.02 NG/ML (< 0.10)
[2021-02-19 15:31] VITALS: BP 170/75
--- NOTE | 2021-02-20 07:45 | ECGEPIP ---
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
[2021-02-20] MEDS ORDERED: ASPI81CH33 PO (16:48)
[2021-02-20] MEDS ORDERED: BUPR300T92 PO (16:48)
[2021-02-20] MEDS ORDERED: MECL25CH45 PO (16:48)
[2021-02-20] MEDS ORDERED: SPIR-10 PO (16:48)
[2021-02-20] MEDS ORDERED: OMEP40CA4 PO (16:48)
[2021-02-20] MEDS ORDERED: ZOLO50TA PO (16:48)
[2021-02-20] MEDS ORDERED: VALS1TAB67 PO (16:48)
[2021-02-20] MEDS ORDERED: AMLO1TAB25 PO (16:48)
[2021-02-20] MEDS ORDERED: NASA1SPR NARES (16:48)
[2021-02-20] MEDS ORDERED: NITR4TASL SL (16:48)
[2021-02-20] MEDS ORDERED: FURO20TA2 PO (16:48)
[2021-02-20] MEDS ORDERED: BASA100I SC (16:48)
[2021-02-20] MEDS ORDERED: CLOP75TA2 PO (16:48)
== END 2021-02-19 17:23 | disposition home or self-care (01) ==
LOC: M ED 12:52 → EDBD 12:52 → EDUNIT# 12:52 → M ED 17:23
DX: R00.1 Bradycardia, unspecified (principal); R60.9 Edema, unspecified; E11.9 Type 2 diabetes mellitus without complications; I11.0 Hypertensive heart disease with heart failure; I50.9 Heart failure, unspecified; J44.9 Chronic obstructive pulmonary disease, unspecified; N18.9 Chronic kidney disease, unspecified; E78.5 Hyperlipidemia, unspecified; Z85.3 Personal history of malignant neoplasm of breast; Z95.5 Presence of coronary angioplasty implant and graft; Z79.899 Other long term (current) drug therapy; Z79.82 Long term (current) use of aspirin; Z79.01 Long term (current) use of anticoagulants; Z88.0 Allergy status to penicillin; Z88.5 Allergy status to narcotic agent; Z88.8 Allergy status to other drugs, medicaments and biological substances; Z91.018 Allergy to other foods; Z87.891 Personal history of nicotine dependence

== ENCOUNTER 2021-02-20 11:55 | Inpatient (IN) | payer MEDICARE ==
[~2021-02-20] VITALS: Ht 165.1 cm; Wt 82.2 kg
[~2021-02-20 11:55] MED LIST changes: +CLON0.3T PO; +FEXO180T58 PO; +HYDR-3911 PO; +MONT10TA10 PO; +POTA20TA6 PO
--- NOTE | 2021-02-20 13:45 | REP ---
INDICATION: DYSPNEA/COUGH. COMPARISON: Multiple the latest yesterday a portable exam TECHNIQUE: PA and lateral FINDINGS: Bilateral CP angle blunting has developed since the last exam. There is cardiomegaly status quo. Chronic fibrotic changes are again seen throughout the lung luna status quo. No acute patchy parenchymal opacities have developed. There is no change in the osseous structures. IMPRESSION: Evidence of small bilateral pleural effusions likely superimposed upon chronic fibrotic changes. Basilar pneumonia cannot be completely ruled out. <Electronically signed by Dev Dinh > 02/20/21 [id number]
[2021-02-20 14:34] LABS: BASO % 0.1 % (0.0-1.0); EOS # 0.2 10^3/uL (0.0-0.5); EOS % 1.4 % (0.0-3.0); HEMATOCRIT 37.8 % (36.0-47.0); HEMOGLOBIN 12.1 g/dl (12.0-15.5); LYMPH # 1.1 10^3/uL (1.5-5.0); LYMPH % 7.5 % (24.0-44.0); MEAN CORPUSCULAR HEMOGLOBIN 28.1 pg (27.0-33.0); MEAN CORPUSCULAR VOLUME 87.7 fl (80.0-96.0); MONO # 1.2 10^3/uL (0.0-0.8); MONO % 8.4 % (2.0-8.0); NEUTROPHILS # 11.5 10^3/uL (1.5-8.5); NEUTROPHILS % 82.2 % (36.0-66.0); PLATELET COUNT, AUTOMATED 457 10^3/uL (150-450); RED BLOOD COUNT 4.31 10^6/uL (4.00-5.40)
[2021-02-20 15:09] LABS: ALBUMIN 2.4 GM/DL (3.2-5.2); ALT/SGPT 17 U/L (12-78); BILIRUBIN,DIRECT 0.1 MG/DL (0.0-0.2); BILIRUBIN,TOTAL 0.4 MG/DL (0.2-1.0); BLOOD UREA NITROGEN 16 MG/DL (7-18); CALCIUM LEVEL 9.3 MG/DL (8.8-10.2); CARBON DIOXIDE LEVEL 32 MEQ/L (21-32); CHLORIDE LEVEL 99 MEQ/L (98-107); CK-MB VALUE MASS < 1.0 NG/ML (<3.6); CPK CREATINE PHOSPHOKINASE 20 U/L (26-192); CREATININE FOR GFR 1.26 MG/DL (0.55-1.30); GLOMERULAR FILTRATION RATE 43.7 (>39); GLUCOSE, FASTING 101 MG/DL (70-100); LIPASE 628 U/L (73-393); NT-PRO BNP 4960 PG/ML (<450); POTASSIUM SERUM 2.9 MEQ/L (3.5-5.1); SODIUM LEVEL 137 MEQ/L (136-145); THYROXINE (T4) 8.3 UG/DL (4.5-12.0); TROPONIN I 0.02 NG/ML (< 0.10)
[2021-02-20] MEDS ORDERED: KCL 10MEQ/100ML SWI (KRUN) 10 MEQ in IV 1 EA IV ONE (15:10)
[2021-02-20] MEDS ORDERED: POTASSIUM CHLORIDE 10MEQ SR TABLET PO ONE ×3 (15:10→21:00)
[2021-02-20] MEDS ORDERED: FUROSEMIDE 40MG/4ML VIAL (J1940) IV ONE (15:20)
[2021-02-20 16:16] LABS: RSV AMPLIFICATION NEGATIVE (NEGATIVE)
[2021-02-20] MEDS ORDERED: AMLO1TAB25 PO (16:48)
[2021-02-20] MEDS ORDERED: ZOLO50TA PO (16:48)
[2021-02-20] MEDS ORDERED: NITR4TASL SL (16:48)
[2021-02-20] MEDS ORDERED: ASPI81CH33 PO (16:48)
[2021-02-20] MEDS ORDERED: VALS1TAB67 PO (16:48)
[2021-02-20] MEDS ORDERED: FURO20TA2 PO (16:48)
[2021-02-20] MEDS ORDERED: SPIR-10 PO (16:48)
[2021-02-20] MEDS ORDERED: OMEP40CA4 PO (16:48)
[2021-02-20] MEDS ORDERED: MECL25CH45 PO (16:48)
[2021-02-20] MEDS ORDERED: BASA100I SC (16:48)
[2021-02-20] MEDS ORDERED: CLOP75TA2 PO (16:48)
[2021-02-20] MEDS ORDERED: BUPR300T92 PO (16:48)
[2021-02-20] MEDS ORDERED: NASA1SPR NARES (16:48)
[2021-02-20] MEDS ORDERED: HOME MED LIST COMPLETE! XX SCH (16:50)
--- NOTE | 2021-02-20 16:57 | HPEPDOC ---
[facility] Medical History & Physical Date of Admission Feb 20, 2021 Date of Service: Feb 20, 2021 History and Physical CHIEF COMPLAINT: "Feeling tired" HISTORY OF PRESENT ILLNESS: 80-year-old female with a past medical history of hypertension, diastolic heart failure, CVA, and anxiety/depression was sent to the emergency room department by her primary care physician's office due to complaints of "heart beating fast". Patient is a poor historian and does not recollect entire course of events. She was seen in the emergency room department for similar complaints (what she feels is her heart beating fast) on 02/19 but was deemed stable for a follow-up with her primary care physician today. She reported earlier this morning her blood glucose was approx. 200 this morning and she was asked by her pcp to take 20U of humalog just prior to going to her pcp office. As she was getting out of her car at her pcp office she began to feel as if her heart was beating fast and felt as if she was about to faint. At which time the primary care office called ems and she was brought to the ED. As per the patient her blood glucose in the ambulance was 40 and she received what she described as dextrose. In the emergency room department she was noted to have leukocytosis. She had hypokalemia, elevated BNP, and chest x-ray that showed evidence of bilateral pleural effusions. She received potassium as well as furosemide. At the time of evaluation, she reported during these episodes she did not have any chest pain, shortness of breath, nausea, vomiting, and diaphoresis. She did not lose consciousness. Presently, she only feels tired and denied the above symptoms as well as abdominal pain, problems with urination bowel movements PAST MEDICAL HISTORY: As mentioned above PAST SURGICAL HISTORY: 1. Bilateral knee 2. Cholecystectomy 3. Hysterectomy SOCIAL HISTORY: Lives with her and son. She denied smoking, drinking, use or recreational drug FAMILY HISTORY: Mother as well as sister had CVAs Father had prostate cancer ALLERGIES: Please see below. REVIEW OF SYSTEMS: 10 point review of system was negative except for what is noted in the HPI HOME MEDICATIONS: Please see below. PHYSICAL EXAMINATION: General: Lying in bed, no acute distress Head/Neck/Throat: Trachea midline, mucous membranes moist Eyes: Sclera anicteric, no erythema or discharge appreciated bilaterally Thorax: Normal respiratory effort on room air, lungs clear to auscultation bilaterally, no wheezes/rales/rhonchi Cardiovascular: Normal rate, regular rhythm, normal S1, S2. Bilateral lower extremity edema 2+ Abdomen: Bowel sounds present, soft/nontender/nondistended Genitourinary: No CVA tenderness, no Powers in place Musculoskeletal: Moving all extremities, no edema Skin: Warm, dry Neurologic: AAOx3, speech fluent and goal-directed, no focal deficits, grossly intact LABORATORY DATA: See below. IMAGING: Chest x-ray noted evidence of some small bilateral pleural effusions superimposed on chronic fibrotic changes. Basilar pneumonia could not be ruled out MICROBIOLOGY: Please see below. ASSESSMENT/PLAN: #Near syncope -Multifactorial etiologies including possibly arrhythmia, hypoglycemia, and CHF exacerbation #CHF exacerbation -In diastolic heart failure. Echocardiogram done on on 11/22/2020 noted left ventricular ejection fraction of 60% and grade 1 diastolic dysfunction. -Furosemide 60 mg every 8. Daily weights, intake/output. Fluid restrictions 1500 cc, low-sodium diet. #Uncontrolled hypertension -Patient reports that she does not take did not take her antihypertensives today. Resume amlodipine 10 mg, clonidine 0.3 mg twice daily, hydralazine 50 mg 3 times daily, spironolactone 25 mg daily, valsartan 160 mg daily. She is also been started on furosemide 60 mg every 8 hrs. #Sinus bradycardia -Monitor on telemetry. Hold carvedilol. Her clonidine may also be contributing to this and may require weaning. #Leukocytosis -Suspect that this is reactive as there is no signs of systemic infection at this time. We will hold off antibiotics. #Anxiety/depression -Continue with bupropion and sertraline. #CVA -Continue with clopidogrel and aspirin. She is not on any statin therapy. #DVT prophylaxis -Heparin subcu Vital Signs Vital Signs Date Time Temp Pulse Resp B/P (MAP) Pulse Ox O2 Delivery O2 Flow Rate FiO2 02/20/21 14:15 54 203/91 (128) 95 02/20/21 12:16 96.7 18 Room Air Laboratory Data Labs 24H Laboratory Tests 2 02/20/21 13:16: Immature Granulocyte % (Auto) 0.4, Neutrophils (%) (Auto) 82.2H, Lymphocytes (%) (Auto) 7.5L, Monocytes (%) (Auto) 8.4H, Eosinophils (%) (Auto) 1.4, Basophils (%) (Auto) 0.1, Neutrophils # (Auto) 11.5H, Lymphocytes # (Auto) 1.1L, Monocytes # (Auto) 1.2H, Eosinophils # (Auto) 0.2, Basophils # (Auto) 0.0, Nucleated Red Blood Cells % (auto) 0.0, Anion Gap 6L, Glomerular Filtration Rate 43.7, Calcium Level 9.3, Total Bilirubin 0.4, Direct Bilirubin 0.1, Aspartate Amino Transf (AST/SGOT) 8, Alanine Aminotransferase (ALT/SGPT) 17, Alkaline Phosphatase 67, Total Creatine Kinase 20L, Creatine Kinase MB < 1.0, Creatine Kinase MB Relative Index 5.00H, Troponin I 0.02, FT-Dta-N-Type Natriuretic Peptide 4960H, Total Protein 6.0L, Albumin 2.4L, Albumin/Globulin Ratio 0.7L, Lipase 628H, Thyroid Stimulating Hormone (TSH) 5.070H, Thyroxine (T4) 8.3 02/20/21 15:28: Coronavirus (COVID-19)(PCR) NEGATIVE, Influenza Type A (RT-PCR) NEGATIVE, Influenza Type B (RT-PCR) NEGATIVE, Respiratory Syncytial Virus (PCR) NEGATIVE CBC/BMP Laboratory Tests 02/20/21 13:16 Home Medications Scheduled Amlodipine Besylate (Amlodipine Besylate) 10 Mg Tablet, 10 MG PO DAILY Aspirin (Aspirin) 81 Mg Tab.chew, 81 MG PO DAILY Bupropion HCl (Bupropion Xl) 300 Mg Tab.er.24h, 300 MG PO DAILY Carvedilol (Carvedilol) 3.125 Mg Tablet, 3.125 MG PO BID Clonidine HCl (Clonidine HCl) 0.3 Mg Tablet, 0.3 MG PO BID Clopidogrel Bisulfate (Clopidogrel) 75 Mg Tablet, 75 MG PO DAILY Fexofenadine HCl (Fexofenadine HCl) 180 Mg Tablet, 180 MG PO QHS Furosemide (Furosemide) 20 Mg Tablet, 60 MG PO DAILY Hydralazine HCl (Hydralazine HCl) 50 Mg Tablet, 50 MG PO TID Insulin Glargine,Hum.rec.anlog (Basaglar Kwikpen U-100) 100 Unit/1 Ml Insuln.pen, 22 UNITS SC QHS Montelukast Sodium (Montelukast Sodium) 10 Mg Tablet, 10 MG PO DAILY Omeprazole (Omeprazole) 40 Mg Capsule.dr, 40 MG PO DAILY Potassium Chloride (Potassium Chloride) 20 Meq Tab.er.prt, 20 MEQ PO DAILY Prednisone (Prednisone) 20 Mg Tablet, 20 MG PO DAILY LAST DAY IS 02/22/21 Sertraline Hcl (Zoloft) 50 Mg Tablet, 150 MG PO DAILY Spironolactone (Spironolactone) 25 Mg Tablet, 25 MG PO DAILY Triamcinolone Acetonide (Nasacort) 10.8 Ml [place], 2 SPRAYS NARES QHS Valsartan (Valsartan) 160 Mg Tablet, 160 MG PO DAILY Scheduled PRN Lorazepam (Ativan) 1 Mg Tab, 1 MG PO QHS PRN for ANXIETY Meclizine HCl (Meclizine HCl) 25 Mg Tab.chew, 25 MG PO BID PRN for DIZZINESS Nitroglycerin (Nitrostat) 0.4 Mg Tab.subl, 0.4 MG SL ASDIRECTED PRN for CHEST PAIN Allergies Coded Allergies: glimepiride (Verified Allergy, Intermediate, 04/01/20) strawberry (Verified Allergy, Mild, SORES IN MOUTH, 04/01/20) blue dye (Verified Allergy, Unknown, 04/01/20) pregabalin (Verified Allergy, Unknown, 04/01/20) amoxicillin (Verified Adverse Reaction, Intermediate, VOMITING, 04/01/20) clavulanic acid (Verified Adverse Reaction, Intermediate, VOMITING, 04/01/20) codeine (Verified Adverse Reaction, Intermediate, NAUSEA, 04/01/20) duloxetine (Verified Adverse Reaction, Intermediate, INSOMNIA, 04/01/20) gabapentin (Verified Adverse Reaction, Intermediate, CONFUSION, 04/01/20) trazodone (Verified Adverse Reaction, Intermediate, CONFUSION, 04/01/20) Oemqsda-Wkp-Mvc Reductase Inhibitor (Verified Adverse Reaction, Mild, LEG CRAMPS, 04/01/20) phenol (Verified Adverse Reaction, Mild, "FEELS WEIRD", 04/01/20) exenatide (Verified Adverse Reaction, Unknown, ITCHINESS, 04/01/20) A-FIB/CHADSVASC A-FIB History Current/History of A-Fib/PAF?: No JOAQUINA CARIAS M.D. Feb 20, 2021 16:57
[2021-02-20] MEDS ORDERED: GLUCAGON INJ 1MG VIAL SC PRN (17:05)
[2021-02-20] MEDS ORDERED: GLUCOSE 4GM CHEW TABLET PO PRN (17:05)
[2021-02-20] MEDS ORDERED: DEXTROSE 50% 50 ML SYRINGE IV PRN (17:05)
[2021-02-20] MEDS: HumaLOG INSULIN (NovoLOG) PER UNIT SC SCH ×2 (17:30→21:00)
[2021-02-20] MEDS: VALSARTAN 80 MG TAB (DIOVAN) PO SCH (17:52)
[2021-02-20 18:23] LABS: MAGNESIUM LEVEL 1.9 MG/DL (1.8-2.4)
[2021-02-20 18:30] LABS: CALCIUM LEVEL 9.5 MG/DL (8.8-10.2); CREATININE FOR GFR 1.2 MG/DL (0.55-1.30); GLOMERULAR FILTRATION RATE 46.3 (>39); POTASSIUM SERUM 3.4 MEQ/L (3.5-5.1)
[2021-02-20] MEDS: FEXOFENADINE 60 MG TAB PO SCH (21:00)
--- NOTE | 2021-02-20 21:40 | ECGEPIP ---
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
[2021-02-21] VITALS: BP 144/65
[2021-02-21] MEDS: **hydrALAZINE** 50 MG TAB PO SCH ×4 (00:31→21:54)
[2021-02-21] MEDS: cloNIDine 0.1MG TABLET PO SCH ×2 (00:31→08:38)
[2021-02-21] MEDS: FUROSEMIDE 100MG/10ML VIAL (J1940) IV SCH ×2 (00:32→08:37)
[2021-02-21] MEDS: HEPARIN SOD (PORCINE) 5000UNITS/ML 1ML VIAL/SYRINGE SC SCH ×4 (00:32→21:54)
[2021-02-21 04:00] VITALS: BP 149/65
[2021-02-21 05:37] LABS: HEMATOCRIT 37.2 % (36.0-47.0); HEMOGLOBIN 11.9 g/dl (12.0-15.5); MEAN CORPUSCULAR VOLUME 87.5 fl (80.0-96.0); PLATELET COUNT, AUTOMATED 424 10^3/uL (150-450); RED BLOOD COUNT 4.25 10^6/uL (4.00-5.40); WHITE BLOOD COUNT 10.2 10^3/uL (4.0-10.0)
[2021-02-21 06:12] LABS: CALCIUM LEVEL 9.2 MG/DL (8.8-10.2); CREATININE FOR GFR 1.29 MG/DL (0.55-1.30); GLOMERULAR FILTRATION RATE 42.6 (>39); MAGNESIUM LEVEL 1.9 MG/DL (1.8-2.4); PHOSPHORUS LEVEL 2.7 MG/DL (2.5-4.9); POTASSIUM SERUM 4.1 MEQ/L (3.5-5.1)
[2021-02-21 08:00] VITALS: BP 140/63
[2021-02-21] MEDS: HumaLOG INSULIN (NovoLOG) PER UNIT SC SCH ×4 (08:35→22:01)
[2021-02-21] MEDS: VALSARTAN 80 MG TAB (DIOVAN) PO SCH (08:36)
[2021-02-21] MEDS: predniSONE 20 MG TAB PO SCH (08:38)
[2021-02-21] MEDS: buPROPion **XL** TABLET 150MG (WELLBUTRIN XL) PO SCH (08:38)
[2021-02-21] MEDS: SERTRALINE HCL 50 MG TAB PO SCH (08:38)
[2021-02-21] MEDS: MONTELUKAST 10 MG TAB PO SCH (08:39)
[2021-02-21] MEDS: SPIRONOLACTONE 25 MG TAB PO SCH (08:39)
[2021-02-21] MEDS: CLOPIDOGREL 75 MG TAB PO SCH (08:39)
[2021-02-21] MEDS: OMEPRAZOLE 20 MG CAP PO SCH (08:39)
[2021-02-21] MEDS: ASPIRIN 81 MG CHEW TABLET PO SCH (08:39)
[2021-02-21 12:00] VITALS: BP 132/63
[2021-02-21] MEDS ORDERED: FLUBLOK(EGG FREE)(QUAD)INFLUENZA VACC 0.5ML SYRINGE 18YRS & OLDER IM ONE (12:00)
[2021-02-21 16:00] VITALS: BP 142/59
--- NOTE | 2021-02-21 16:29 | IPNPDOC ---
Subjective Date Seen The patient was seen on 02/21/21. Subjective Chief Complaint/HPI Patient was seen and examined at bedside this morning. She reported feeling better and denied having palpitations since hospitalization. She denied chest pain, abdominal pain, nausea, vomiting, problems with urination and bowel movements. Overnight, patient was noted to have 6 beats of V. tach on telemetry. Other systems General: Lying in bed, no acute distress Head/Neck/Throat: Trachea midline, mucous membranes moist Eyes: Sclera anicteric, no erythema or discharge appreciated bilaterally Thorax: Normal respiratory effort on room air, lungs clear to auscultation bilaterally, no wheezes/rales/rhonchi Cardiovascular: Normal rate, regular rhythm, normal S1, S2. Bilateral lower extremity edema 2+ Abdomen: Bowel sounds present, soft/nontender/nondistended Genitourinary: No CVA tenderness, no Powers in place Musculoskeletal: Moving all extremities, no edema Skin: Warm, dry Neurologic: AAOx3, speech fluent and goal-directed, no focal deficits, grossly intact Assessment /Plan Assessment #Near syncope -Multifactorial etiologies including possibly arrhythmia, hypoglycemia, and CHF exacerbation #CHF exacerbation -In diastolic heart failure. Echocardiogram done on on 11/22/2020 noted left ventricular ejection fraction of 60% and grade 1 diastolic dysfunction. -Furosemide 60 mg every12 hours. Daily weights, intake/output. Fluid restrictions 1500 cc, low-sodium diet. #Hypertension -Better control today. -continue amlodipine 10 mg, hydralazine 50 mg 3 times daily, spironolactone 25 mg daily, valsartan 160 mg daily, and clonidine. She is also been started on furosemide 60 mg every 12hrs. #Sinus bradycardia -We will try to taper off her clonidine to make room for her beta-earl, as this would benefit her with her recently found telemetry events of nonsustained V. tach. #NSVT -6 beats of NSVT on 02/21. Plan as above. #Leukocytosis -Suspect that this is reactive as there is no signs of systemic infection at this time. We will hold off antibiotics. #Anxiety/depression -Continue with bupropion and sertraline. #CVA -Continue with clopidogrel and aspirin. She is not on any statin therapy. #DVT prophylaxis -Heparin subcu Plan/VTE VTE Prophylaxis Ordered?: Yes VS, I&O, 24H, Fishbone Vital Signs/I&O Vital Signs Date Time Temp Pulse Resp B/P (MAP) Pulse Ox O2 Delivery O2 Flow Rate FiO2 02/21/21 12:00 97.1 52 16 132/63 (86) 91 Room Air I&O- Last 24 Hours up to 6 AM 02/21/21 06:00 Intake Total 300 ml Output Total 2675 ml Balance -2375 ml Laboratory Data 24H LABS Laboratory Tests 2 02/20/21 17:51: Anion Gap 7L, Glomerular Filtration Rate 46.3, Calcium Level 9.5, Phosphorus Level 3.0, Magnesium Level 1.9 02/21/21 00:14: Bedside Glucose (Misc Panel) 137H 02/21/21 05:22: Anion Gap 6L, Glomerular Filtration Rate 42.6, Calcium Level 9.2, Phosphorus Level 2.7, Magnesium Level 1.9, Nucleated Red Blood Cells % (auto) 0.0, AK-Xcs-X-Type Natriuretic Peptide 6188H 02/21/21 12:05: Bedside Glucose (Misc Panel) 198H CBC/BMP Laboratory Tests 02/20/21 17:51 02/21/21 05:22 JOAQUINA CARIAS M.D. Feb 21, 2021 16:29
[2021-02-21 20:00] VITALS: BP 129/58
[2021-02-21] MEDS: FEXOFENADINE 60 MG TAB PO SCH (21:54)
[2021-02-22] VITALS: BP 142/65
[2021-02-22 04:00] VITALS: BP 167/69
[2021-02-22] MEDS ORDERED: FUROSEMIDE 100MG/10ML VIAL (J1940) IV SCH (04:00)
[2021-02-22] MEDS: HEPARIN SOD (PORCINE) 5000UNITS/ML 1ML VIAL/SYRINGE SC SCH ×3 (05:33→22:00)
[2021-02-22 06:17] LABS: HEMATOCRIT 35.8 % (36.0-47.0); HEMOGLOBIN 11.4 g/dl (12.0-15.5); MEAN CORPUSCULAR HEMOGLOBIN 27.9 pg (27.0-33.0); MEAN CORPUSCULAR HGB CONC 31.8 g/dl (32.0-36.5); MEAN CORPUSCULAR VOLUME 87.5 fl (80.0-96.0); PLATELET COUNT, AUTOMATED 395 10^3/uL (150-450); RED BLOOD COUNT 4.09 10^6/uL (4.00-5.40); WHITE BLOOD COUNT 11.4 10^3/uL (4.0-10.0)
[2021-02-22 06:43] LABS: CALCIUM LEVEL 9.6 MG/DL (8.8-10.2); CREATININE FOR GFR 1.55 MG/DL (0.55-1.30); GLOMERULAR FILTRATION RATE 34.4 (>39); PHOSPHORUS LEVEL 2.4 MG/DL (2.5-4.9); POTASSIUM SERUM 3.8 MEQ/L (3.5-5.1)
[2021-02-22 07:24] VITALS: BP 156/60
[2021-02-22] MEDS: **hydrALAZINE** 50 MG TAB PO SCH ×3 (08:29→20:48)
[2021-02-22] MEDS: OMEPRAZOLE 20 MG CAP PO SCH (08:29)
[2021-02-22] MEDS: VALSARTAN 80 MG TAB (DIOVAN) PO SCH (08:30)
[2021-02-22] MEDS: buPROPion **XL** TABLET 150MG (WELLBUTRIN XL) PO SCH (08:30)
[2021-02-22] MEDS: cloNIDine 0.1MG TABLET PO SCH (08:30)
[2021-02-22] MEDS: SERTRALINE HCL 50 MG TAB PO SCH (08:30)
[2021-02-22] MEDS: predniSONE 20 MG TAB PO SCH (08:31)
[2021-02-22] MEDS: MONTELUKAST 10 MG TAB PO SCH (08:31)
[2021-02-22] MEDS: ASPIRIN 81 MG CHEW TABLET PO SCH (08:31)
[2021-02-22] MEDS: CARVedilol 3.125 MG TAB PO SCH (08:31)
[2021-02-22] MEDS: CLOPIDOGREL 75 MG TAB PO SCH (08:31)
[2021-02-22] MEDS: HumaLOG INSULIN (NovoLOG) PER UNIT SC SCH ×4 (08:31→20:57)
[2021-02-22] MEDS: SPIRONOLACTONE 25 MG TAB PO SCH (08:32)
--- NOTE | 2021-02-22 11:04 | ECGEPIP ---
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 Electronically Signed on 02-22-2021 11:04:26 EDT by Balbir Harding
--- NOTE | 2021-02-22 11:34 | IPNPDOC ---
Subjective Date Seen The patient was seen on 02/22/21. Subjective Chief Complaint/HPI Patient seen and examined at bedside this morning. She had no new complaints. She denied palpitations, chest pain, abdominal pain, nausea, vomiting, problem with urination and bowel movements. Objective Physical Examination Other physical findings General: Lying in bed, no acute distress Head/Neck/Throat: Trachea midline, mucous membranes moist Eyes: Sclera anicteric, no erythema or discharge appreciated bilaterally Thorax: Normal respiratory effort on room air, lungs clear to auscultation b ilaterally, no wheezes/rales/rhonchi Cardiovascular: Normal rate, regular rhythm, normal S1, S2; no JVD, pedal and radial pulses are palpable Abdomen: Bowel sounds present, soft/nontender/nondistended Genitourinary: No CVA tenderness, no Powers in place Musculoskeletal: Moving all extremities, no edema Skin: Warm, dry Neurologic: AAOx3, speech fluent and goal-directed, no focal deficits, grossly intact Assessment /Plan Assessment #Near syncope -Multifactorial etiologies including possibly arrhythmia, hypoglycemia, and CHF exacerbation #CHF exacerbation -Echocardiogram done on on 11/22/2020 noted left ventricular ejection fraction of 60% and grade 1 diastolic dysfunction. -She is diuresed well, and her renal function has bumped up slightly. Will hold further diuresis.. Daily weights, intake/output. Fluid restrictions 1500 cc, low-sodium diet. #Acute kidney injury -Hold further diuresis and monitor renal function. #Hypertension -Better control today. -continue amlodipine 10 mg, hydralazine 100 mg 3 times daily, and clonidine. Hold spironolactone 25 mg daily and valsartan 160 mg daily due to renal function today #Sinus bradycardia -We will try to taper off her clonidine to make room for her beta-earl, as this would benefit her with her recently found telemetry events of nonsustained V. tach. #NSVT -6 beats of NSVT on 02/21. Plan as above. -Reached out to cardiology on 02/21, awaiting their input. #Leukocytosis -Suspect that this is reactive as there is no signs of systemic infection at this time. We will hold off antibiotics. #Anxiety/depression -Continue with bupropion and sertraline. #CVA -Continue with clopidogrel and aspirin. She is not on any statin therapy. #DVT prophylaxis -Heparin subcu Plan/VTE VTE Prophylaxis Ordered?: Yes VS, I&O, 24H, Fishbone Vital Signs/I&O Vital Signs Date Time Temp Pulse Resp B/P (MAP) Pulse Ox O2 Delivery O2 Flow Rate FiO2 02/22/21 08:31 62 02/22/21 08:29 156/60 02/22/21 07:24 97.6 17 92 Room Air I&O- Last 24 Hours up to 6 AM 02/22/21 06:00 Intake Total 930 ml Output Total 750 ml Balance 180 ml Laboratory Data 24H LABS Laboratory Tests 2 02/21/21 12:05: Bedside Glucose (Misc Panel) 198H 02/21/21 17:43: Bedside Glucose (Misc Panel) 390H 02/21/21 21:53: Bedside Glucose (Misc Panel) 298H 02/22/21 05:15: Nucleated Red Blood Cells % (auto) 0.0, Anion Gap 6L, Glomerular Filtration Rate 34.4L, Calcium Level 9.6, Phosphorus Level 2.4L, Magnesium Level 2.0 CBC/BMP Laboratory Tests 02/22/21 05:15 JOAQUINA CARIAS M.D. Feb 22, 2021 11:34
[2021-02-22 11:54] VITALS: BP 153/69
[2021-02-22] MEDS ORDERED: K-PHOS ORIGINAL (POT.ACID PHOSPHATE) 500MG TAB PO ONE (13:00)
[2021-02-22 16:00] VITALS: BP 132/63
[2021-02-22] MEDS ORDERED: SLF 3 ML SYR IV PRN (18:10)
[2021-02-22 20:00] VITALS: BP 149/62
[2021-02-22] MEDS: FEXOFENADINE 60 MG TAB PO SCH (20:48)
[2021-02-22] MEDS: SLF 3 ML SYR IV SCH (22:00)
[2021-02-23 04:00] VITALS: BP_SYST 187; BP_SYST 188; BP_DIAS 73; BP_DIAS 75
[2021-02-23] MEDS: LORazepam 1 MG TAB PO PRN ×2 (04:38→21:01)
[2021-02-23 04:39] LABS: HEMATOCRIT 34.7 % (36.0-47.0); HEMOGLOBIN 11.1 g/dl (12.0-15.5); MEAN CORPUSCULAR HEMOGLOBIN 28.2 pg (27.0-33.0); MEAN CORPUSCULAR VOLUME 88.3 fl (80.0-96.0); PLATELET COUNT, AUTOMATED 372 10^3/uL (150-450); RED BLOOD COUNT 3.93 10^6/uL (4.00-5.40); WHITE BLOOD COUNT 10.8 10^3/uL (4.0-10.0)
[2021-02-23] MEDS: ACETAMINOPHEN TAB 650MG DOSE (2X325MG) PO PRN (04:47)
[2021-02-23 05:01] LABS: CALCIUM LEVEL 9.4 MG/DL (8.8-10.2); CREATININE FOR GFR 1.6 MG/DL (0.55-1.30); GLOMERULAR FILTRATION RATE 33.2 (>39); MAGNESIUM LEVEL 1.9 MG/DL (1.8-2.4); PHOSPHORUS LEVEL 2.7 MG/DL (2.5-4.9); POTASSIUM SERUM 3.6 MEQ/L (3.5-5.1)
[2021-02-23] MEDS: SLF 3 ML SYR IV SCH ×3 (06:18→21:03)
[2021-02-23] MEDS: HEPARIN SOD (PORCINE) 5000UNITS/ML 1ML VIAL/SYRINGE SC SCH ×3 (06:18→21:02)
[2021-02-23 07:42] VITALS: BP 164/72
[2021-02-23] MEDS: predniSONE 20 MG TAB PO SCH (08:33)
[2021-02-23] MEDS: SERTRALINE HCL 50 MG TAB PO SCH (08:33)
[2021-02-23] MEDS: cloNIDine 0.1MG TABLET PO SCH (08:33)
[2021-02-23] MEDS: CARVedilol 3.125 MG TAB PO SCH (08:34)
[2021-02-23] MEDS: MONTELUKAST 10 MG TAB PO SCH (08:34)
[2021-02-23] MEDS: **hydrALAZINE** 50 MG TAB PO SCH ×3 (08:34→20:56)
[2021-02-23] MEDS: buPROPion **XL** TABLET 150MG (WELLBUTRIN XL) PO SCH (08:34)
[2021-02-23] MEDS: CLOPIDOGREL 75 MG TAB PO SCH (08:34)
[2021-02-23] MEDS: OMEPRAZOLE 20 MG CAP PO SCH (08:34)
[2021-02-23] MEDS: ASPIRIN 81 MG CHEW TABLET PO SCH (08:34)
[2021-02-23] MEDS: HumaLOG INSULIN (NovoLOG) PER UNIT SC SCH ×4 (08:35→20:57)
--- NOTE | 2021-02-23 11:37 | IPNPDOC ---
Subjective Date Seen The patient was seen on 02/23/21. Subjective Chief Complaint/HPI Patient seen and examined at bedside this morning. She denied having further palpitations during hospitalization. She denied chest pain, abdominal pain, nausea, vomiting, problem with urination and bowel movements. Overnight no events were recorded on telemetry. Objective Physical Examination Other physical findings General: Lying in bed, no acute distress Head/Neck/Throat: Trachea midline, mucous membranes moist Eyes: Sclera anicteric, no erythema or discharge appreciated bilaterally Thorax: Normal respiratory effort on room air, lungs clear to auscultation bilaterally, no wheezes/rales/rhonchi Cardiovascular: Normal rate, regular rhythm, normal S1, S2; lower extremity edema has improved, radial as well as pedal pulses are palpable Abdomen: Bowel sounds present, soft/nontender/nondistended Genitourinary: No CVA tenderness, no Powers in place Musculoskeletal: Moving all extremities, no edema Skin: Warm, dry Neurologic: AAOx3, speech fluent and goal-directed, no focal deficits, grossly intact Assessment /Plan Assessment #Near syncope -Multifactorial etiologies including possibly arrhythmia, hypoglycemia, and CHF exacerbation #CHF exacerbation -Echocardiogram done on on 11/22/2020 noted left ventricular ejection fraction of 60% and grade 1 diastolic dysfunction. -She is diuresed well, and her renal function has bumped up slightly. Will hold further diuresis. Daily weights, intake/output. #Acute kidney injury -Hold further diuresis and monitor renal function. #DM -Will add Levemir for better control. Continue with sliding scale, accu-checks, hypoglycemic protocol. #Hypertension -continue amlodipine 10 mg, hydralazine 100 mg 3 times daily, and clonidine. Hold spironolactone 25 mg daily and valsartan 160 mg daily due to renal function today #Sinus bradycardia -We will try to taper off her clonidine (from twice daily to once daily) to make room for her beta-earl, as this would benefit her with her recently found telemetry events of nonsustained V. tach. #NSVT -6 beats of NSVT on 02/21. Plan as above. -Reached out to cardiology on 02/21 #Leukocytosis -Suspect that this is reactive as there is no signs of systemic infection at this time. We will hold off antibiotics. #Anxiety/depression -Continue with bupropion and sertraline. #CVA -Continue with clopidogrel and aspirin. She is not on any statin therapy. #DVT prophylaxis -Heparin subcu Plan/VTE VTE Prophylaxis Ordered?: Yes VS, I&O, 24H, Fishbone Vital Signs/I&O Vital Signs Date Time Temp Pulse Resp B/P (MAP) Pulse Ox O2 Delivery O2 Flow Rate FiO2 02/23/21 08:34 61 164/72 02/23/21 07:42 97.8 16 94 Room Air I&O- Last 24 Hours up to 6 AM 02/23/21 06:00 Intake Total 690 ml Output Total 1000 ml Balance -310 ml Laboratory Data 24H LABS Laboratory Tests 2 02/22/21 12:02: Bedside Glucose (Misc Panel) 162H 02/22/21 12:13: Troponin I 0.02 02/22/21 16:53: Bedside Glucose (Misc Panel) 349H 02/22/21 20:45: Bedside Glucose (Misc Panel) 381H 02/23/21 03:53: Nucleated Red Blood Cells % (auto) 0.0, Anion Gap 5L, Glomerular Filtration Rate 33.2L, Calcium Level 9.4, Phosphorus Level 2.7, Magnesium Level 1.9, HF-Tsx-[id number]-Type Natriuretic Peptide 1400H CBC/BMP Laboratory Tests 02/23/21 03:53 JOAQUINA CARIAS M.D. Feb 23, 2021 11:37
[2021-02-23 12:01] VITALS: BP 124/66
[2021-02-23 16:00] VITALS: BP 155/66
[2021-02-23 20:00] VITALS: BP_SYST 119; BP_SYST 174; BP_DIAS 20; BP_DIAS 72
[2021-02-23] MEDS: FEXOFENADINE 60 MG TAB PO SCH (20:55)
[2021-02-23] MEDS ORDERED: LEVEMIR (INSULIN DETEMIR) 1 UNITS/0.01ML SC SCH (21:00)
--- NOTE | 2021-02-23 23:56 | CR ---
CONSULTATION DATE: 02/23/2021 CONSULTATION REQUESTED BY: Emile Hampton M.D. REASON FOR CONSULTATION: Acute kidney injury superimposed on chronic kidney disease. HISTORY OF PRESENT ILLNESS: Mrs. Deleon is a 80-year-old female with known history of hypertension, diastolic congestive heart failure, prior stroke and anxiety. She was admitted to [facility] on February 20 due to palpitations and feeling tired. She was found to be in congestive heart failure and also was hypoglycemic. She was diuresed and now her kidney function has worsened with creatinine up to 1.6 mg/dL. Her Spironolactone and angiotensin receptor earl was held today. Nephrology consultation was requested and patient is seen this morning. On my arrival, patient is lying in the bed flat without any distress. She denies any further episodes of palpitations and shortness of breath has improved. Her hypoglycemia has also improved. PAST MEDICAL HISTORY: Significant for: 1. History of hypertension. 2. Diabetes. 3. Diastolic congestive heart failure. 4. Prior stroke. 5. History of anxiety and depression. 6. History of chronic kidney disease. PAST SURGICAL HISTORY: Significant for: 1. Bilateral knee surgery. 2. Cholecystectomy. 3. Hysterectomy. FAMILY HISTORY: Unremarkable and negative for any significant kidney problems. PERSONAL AND SOCIAL HISTORY: Patient lives with her and her son. She denies any alcohol, tobacco or drug use. ALLERGIES: She has multiple drug allergies listed in her EMR. MEDICATIONS: Her home medications include Amlodipine 10 mg daily, Aspirin 81 mg daily, Bupropion 300 mg daily, Carvedilol 3.125 mg b.i.d., Clonidine 0.3 mg b.i.d., Plavix 75 mg daily, Fexofenadine 180 mg at bedtime, Furosemide 60 mg daily, Hydralazine 50 mg t.i.d., Basaglar insulin 22 units at bedtime, Omeprazole 40 mg daily, Potassium Chloride 20 mEq daily, Prednisone 20 mg daily, Sertraline 50 mg daily, Spironolactone 25 mg daily, Nasacort Nasal [place] at bedtime, Valsartan 160 mg daily and Montelukast 10 mg daily. She also uses Lorazepam as needed for anxiety and Nitroglycerin as needed for chest pain. REVIEW OF SYSTEMS: Patient denies any fever or chills. At present, she does not have any palpitations or shortness of breath. Ears, nose and throat are unremarkable. Cardiovascular system is negative for dyspnea or chest pain at present. She had palpitations on admission, which have improved. Respiratory system is negative for cough or hemoptysis. GI system is negative for vomiting or diarrhea. system is negative for dysuria or hematuria. She denies any flank pain. Musculoskeletal system is significant for chronic back pain and arthritis. She denies any leg edema at present. Neurological system is significant for prior stroke. She does not have any significant focal deficit. Denies any seizures. Skin is negative for rash or ulcers. Hematological system is negative for any easy bruising or excessive bleeding. 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 PHYSICAL EXAMINATION: VITALS: Temperature 97.9 degrees Fahrenheit, heart rate 56 per minute, respiratory rate 18 per minute, blood pressure 124/66 mmHg and oxygen saturation 91% on room air. HEENT: Head is atraumatic. Ears, nose and throat are unremarkable. There is no oral thrush or ulcers. Neck is supple and JVD is not abnormally elevated. HEART: Heart sounds are regular. LUNGS: Lungs sound clear to auscultation. ABDOMEN: Soft and nontender. Bowel sounds are normal. There is no palpable organomegaly. EXTREMITIES: Without any cyanosis or clubbing. She does not have any peripheral edema. NEUROLOGIC: She is awake, without a focal neurological deficit. LABORATORY DATA: On admission, BUN 15, creatinine 1.2, sodium 139 and potassium 3.4. Today sodium 135, potassium 3.6. BUN up to 20 and creatinine 1.60. Glucose 227, calcium 9.4. BNP level 6,188 on February 21 and we just checked it today and it is down to 1,400. WBC 10.8, hemoglobin 11.1, hematocrit 34.7, platelets 372,000. IMAGING STUDIES: Chest x-ray done on February 20 showed evidence of small bilateral pleural effusions likely superimposed on chronic fibrotic changes. PROBLEMS: 1. Acute kidney injury superimposed on chronic kidney disease: Most likely result of over diuresis. Patient is lying flat in her bed. She does not have any peripheral edema. I agree with holding diuretic and angiotensin receptor earl. Her BNP level has improved from about 6,000 just two days ago down to 1,400, which is significant improvement and suggestive of good diuresis. Renal function is likely to improve. 2. Congestive heart failure: Volume status seems slightly depleted. I agree with holding diuretic today along with angiotensin receptor earl. She can probably resume her diuretic at the time of discharge. DISPOSITION: From a renal standpoint, patient can be discharged once her kidney function improves slightly and then she can resume her home medications. She should follow-up in our clinic as an outpatient for her chronic kidney disease and diuretic management. Thank you for involving me in the care of Mrs. Deleon.
[2021-02-24] VITALS: BP 187/78
[2021-02-24] MEDS ORDERED: RAMELTEON 8 MG TAB (ROZEREM) PO PRN (00:45)
[2021-02-24] MEDS: ACETAMINOPHEN TAB 650MG DOSE (2X325MG) PO PRN (00:47)
[2021-02-24 04:00] VITALS: BP 170/73
[2021-02-24 05:19] LABS: HEMATOCRIT 35.7 % (36.0-47.0); HEMOGLOBIN 11.5 g/dl (12.0-15.5); MEAN CORPUSCULAR HEMOGLOBIN 28.3 pg (27.0-33.0); MEAN CORPUSCULAR HGB CONC 32.2 g/dl (32.0-36.5); MEAN CORPUSCULAR VOLUME 87.9 fl (80.0-96.0); PLATELET COUNT, AUTOMATED 366 10^3/uL (150-450); RED BLOOD COUNT 4.06 10^6/uL (4.00-5.40); WHITE BLOOD COUNT 11.6 10^3/uL (4.0-10.0)
[2021-02-24 05:45] LABS: CALCIUM LEVEL 9.6 MG/DL (8.8-10.2); CREATININE FOR GFR 1.63 MG/DL (0.55-1.30); GLOMERULAR FILTRATION RATE 32.5 (>39); MAGNESIUM LEVEL 2.1 MG/DL (1.8-2.4); PHOSPHORUS LEVEL 2.7 MG/DL (2.5-4.9); POTASSIUM SERUM 3.9 MEQ/L (3.5-5.1)
[2021-02-24] MEDS: HEPARIN SOD (PORCINE) 5000UNITS/ML 1ML VIAL/SYRINGE SC SCH (06:03)
[2021-02-24] MEDS: SLF 3 ML SYR IV SCH (06:08)
[2021-02-24 08:00] VITALS: BP 141/63
[2021-02-24] MEDS: ASPIRIN 81 MG CHEW TABLET PO SCH (08:21)
[2021-02-24] MEDS: CLOPIDOGREL 75 MG TAB PO SCH (08:21)
[2021-02-24 08:22] VITALS: BP 141/63
[2021-02-24] MEDS: **hydrALAZINE** 50 MG TAB PO SCH (08:22)
[2021-02-24] MEDS: OMEPRAZOLE 20 MG CAP PO SCH (08:22)
[2021-02-24] MEDS: SERTRALINE HCL 50 MG TAB PO SCH (08:22)
[2021-02-24] MEDS: buPROPion **XL** TABLET 150MG (WELLBUTRIN XL) PO SCH (08:24)
[2021-02-24] MEDS: MONTELUKAST 10 MG TAB PO SCH (08:24)
[2021-02-24] MEDS: CARVedilol 3.125 MG TAB PO SCH (08:24)
[2021-02-24] MEDS: predniSONE 20 MG TAB PO SCH (08:25)
[2021-02-24] MEDS: HumaLOG INSULIN (NovoLOG) PER UNIT SC SCH ×2 (08:25→12:00)
[2021-02-24] MEDS: cloNIDine 0.1MG TABLET PO SCH (08:28)
--- NOTE | 2021-02-24 09:51 | DS.PDOC ---
Discharge Summary General Date of Admission Feb 20, 2021 at 16:30 Date of Discharge 02/24/21 Discharge Summary DISCHARGE DIAGNOSES: 1. Near syncope 2. CHF exacerbation 3. Acute kidney injury 4. Nonsustained V. tach COMPLICATIONS/CHIEF COMPLAINT: Chf, Near Syncope. HOSPITAL COURSE: Ms. Deleon, presented to the emergency room department at [facility] on 02/24/2021 with complaints of palpitations. She has a past medical history of hypertension, diastolic heart failure, CVA, and anxiety/depression. She was was seen in the emergency room department for similar complaints on 02/19 but was deemed stable for a follow-up with her primary care physician the same day of this current admission. She reported earlier on the day of admission her blood glucose was approx. 200 and was asked by her pcp to take 20U of humalog just prior to going to her pcp office. As she was getting out of her car at her pcp office she began to feel as if her heart was beating fast and felt as if she was about to faint. At which time the primary care office called ems and she was brought to the ED. As per the patient her blood glucose in the ambulance was 40 and she received what she described as dextrose the day of admission. In the emergency room department she was noted to have leukocytosis. She had hypokalemia, elevated BNP, and chest x-ray that showed evidence of bilateral pleural effusions. She was admitted for near syncope, as well as CHF exacerbation. Her near syncope was felt to be multifactorial including a possible underlying arrhythmia, hypoglycemia, and CHF exacerbation. During hospitalization, her blood glucose remained within normal limits. He was asked to check her blood glucose prior to administering any further insulin at home. She was also asked to talk to her primary care physician for further management of her diabetes. She received IV diuretics for her CHF exacerbation which she had a good response to. She sustained acute kidney injury. She was asked to hold diuretics at that time of discharge as she was adequately diuresed. She was asked to follow-up with the nephrology team who is was following during hospitalization within a week. At the time of discharge, her valsartan was discussed with nephrology team who felt that she would be able to tolerate it with her current renal function which had stabilized at a creatinine at approximately 1.6. 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 During hospitalization, it was noted that she had uncontrolled hypertension. Her amlodipine, hydralazine, and clonidine were resumed. However, due to her heart rate being low her carvedilol was initially held. However, while she is being monitored on telemetry she had 6 beats of nonsustained V. tach. In order to make room for her carvedilol, her clonidine was titrated down; and to better control her blood pressure her hydralazine was titrated up during hospitalization. However, at the time of discharge she will be going home with her original hydralazine dosage as her valsartan will be resumed now. She is asked to follow-up with her primary sewing machine operator for management of her hypertension. She is aware of the 6 beats of nonsustained V. tach that she had and will be talking to her sewing machine operator on 02/25/2021 about the course of events that took place during this hospitalization At the time of discharge, patient had resolution of all her symptoms and was back to her baseline level of functioning. She was in agreement of the above plan and was aware of all the follow-ups that were required. DISCHARGE MEDICATIONS: Please see below. ALLERGIES: Please see below. PHYSICAL EXAMINATION ON DISCHARGE: General: Lying in bed, no acute distress Head/Neck/Throat: Trachea midline, mucous membranes moist Eyes: Sclera anicteric, PERRLA Thorax: Normal respiratory effort on room air, lungs clear to auscultation bilaterally, no wheezes/rales/rhonchi Cardiovascular: Normal rate, regular rhythm, normal S1, S2; no S3, S4, rubs/gallops/murmurs Abdomen: Bowel sounds present, soft/nontender/nondistended Genitourinary: No CVA tenderness, no Powers in place Musculoskeletal: Moving all extremities, no edema Skin: Warm, dry Neurologic: AAOx3, speech fluent and goal-directed, no focal deficits, grossly intact LABORATORY DATA: Please see below. IMAGING: CXR FINDINGS: Bilateral CP angle blunting has developed since the last exam. There is cardiomegaly status quo. Chronic fibrotic changes are again seen throughout the lung luna status quo. No acute patchy parenchymal opacities have developed. There is no change in the osseous structures. IMPRESSION: Evidence of small bilateral pleural effusions likely superimposed upon chronic fibrotic changes. Basilar pneumonia cannot be completely ruled out. PROGNOSIS: Good ACTIVITY: As tolerated DISCHARGE INSTRUCTIONS: Follow-ups as mentioned above TIME SPENT ON DISCHARGE: 30 minutes. Vital Signs/I&Os Vital Signs Date Time Temp Pulse Resp B/P (MAP) Pulse Ox O2 Delivery O2 Flow Rate FiO2 02/24/21 08:24 73 02/24/21 08:22 141/63 02/24/21 08:00 96.5 20 95 Room Air I&O- Last 24 Hours up to 6 AM 02/24/21 06:00 Intake Total 840 ml Output Total 525 ml Balance 315 ml Laboratory Data Labs 24H Laboratory Tests 2 02/23/21 12:10: Bedside Glucose (Misc Panel) 247H 02/23/21 16:32: Bedside Glucose (Misc Panel) 365H 02/23/21 20:50: Bedside Glucose (Misc Panel) 324H 02/24/21 04:54: Nucleated Red Blood Cells % (auto) 0.0, Anion Gap 5L, Glomerular Filtration Rate 32.5L, Calcium Level 9.6, Phosphorus Level 2.7, Magnesium Level 2.1 CBC/BMP Laboratory Tests 02/24/21 04:54 FSBS Laboratory Tests Test 02/23/21 12:10 02/23/21 16:32 02/23/21 20:50 Range/Units Bedside Glucose (Misc Panel) 247 365 324 83-110 MG/DL Discharge Medications Scheduled Amlodipine Besylate (Amlodipine Besylate) 10 Mg Tablet, 10 MG PO DAILY, (Report ed) Aspirin (Aspirin) 81 Mg Tab.chew, 81 MG PO DAILY, (Reported) Bupropion HCl (Bupropion Xl) 300 Mg Tab.er.24h, 300 MG PO DAILY, (Reported) Carvedilol (Carvedilol) 3.125 Mg Tablet, 3.125 MG PO DAILY, (Reported) Clonidine HCl (Clonidine HCl) 0.3 Mg Tablet, 0.3 MG PO DAILY, (Reported) Clopidogrel Bisulfate (Clopidogrel) 75 Mg Tablet, 75 MG PO DAILY, (Reported) Fexofenadine HCl (Fexofenadine HCl) 180 Mg Tablet, 180 MG PO QHS, (Reported) Hydralazine HCl (Hydralazine HCl) 50 Mg Tablet, 50 MG PO TID, (Reported) Insulin Glargine,Hum.rec.anlog (Basaglar Kwikpen U-100) 100 Unit/1 Ml Insuln.pen, 22 UNITS SC QHS, (Reported) Montelukast Sodium (Montelukast Sodium) 10 Mg Tablet, 10 MG PO DAILY, (Reported) Omeprazole (Omeprazole) 40 Mg Capsule.dr, 40 MG PO DAILY, (Reported) Sertraline Hcl (Zoloft) 50 Mg Tablet, 150 MG PO DAILY, (Reported) Triamcinolone Acetonide (Nasacort) 10.8 Ml [place], 2 SPRAYS NARES QHS, (Reported) Valsartan (Valsartan) 160 Mg Tablet, 160 MG PO DAILY, (Reported) Scheduled PRN Lorazepam (Ativan) 1 Mg Tab, 1 MG PO QHS PRN for ANXIETY, (Reported) Meclizine HCl (Meclizine HCl) 25 Mg Tab.chew, 25 MG PO BID PRN for DIZZINESS, (Reported) Nitroglycerin (Nitrostat) 0.4 Mg Tab.subl, 0.4 MG SL ASDIRECTED PRN for CHEST PAIN, (Reported) Allergies Coded Allergies: glimepiride (Verified Allergy, Intermediate, 04/01/20) strawberry (Verified Allergy, Mild, SORES IN MOUTH, 04/01/20) blue dye (Verified Allergy, Unknown, 04/01/20) pregabalin (Verified Allergy, Unknown, 04/01/20) amoxicillin (Verified Adverse Reaction, Intermediate, VOMITING, 04/01/20) clavulanic acid (Verified Adverse Reaction, Intermediate, VOMITING, 04/01/20) codeine (Verified Adverse Reaction, Intermediate, NAUSEA, 04/01/20) duloxetine (Verified Adverse Reaction, Intermediate, INSOMNIA, 04/01/20) gabapentin (Verified Adverse Reaction, Intermediate, CONFUSION, 04/01/20) trazodone (Verified Adverse Reaction, Intermediate, CONFUSION, 04/01/20) Ppccxmq-Uje-Gny Reductase Inhibitor (Verified Adverse Reaction, Mild, LEG CRAMPS, 04/01/20) phenol (Verified Adverse Reaction, Mild, "FEELS WEIRD", 04/01/20) exenatide (Verified Adverse Reaction, Unknown, ITCHINESS, 04/01/20) JOAQUINA CARIAS M.D. Feb 24, 2021 09:51
[2021-02-24 12:00] VITALS: BP 168/72
--- NOTE | 2021-02-24 19:39 | IPN ---
PROGRESS NOTE DATE: 02/24/2021 SUBJECTIVE: Mrs. Deleon is seen this morning on her bedside. She is laying in her bed without any acute distress. She denies any dyspnea, chest pain, nausea or vomiting. PHYSICAL EXAMINATION: VITALS: Temperature 96.5 degrees Fahrenheit, heart rate 64 per minute, respiratory rate 18 per minute, blood pressure 141/63 mmHg and oxygen saturation 95% on room air. HEENT: Head is atraumatic. Neck is supple and without JVD or thyroid enlargement. HEART: Heart sounds are regular. LUNGS: Clear to auscultation. ABDOMEN: Soft and nontender and bowel sounds are normal. EXTREMITIES: Without any cyanosis or clubbing. LABORATORY DATA: Today's labs show WBC 11.6, hemoglobin 11.5, hematocrit 35.7, platelets 366,000. Sodium 136, potassium 3.9, BUN 24, creatinine 1.63, glucose 182 and calcium 9.6. PROBLEMS: 1. Acute kidney injury superimposed on chronic kidney disease: No significant change in kidney function over the last 24 hours. She has been off angiotensin receptor earl and Spironolactone. I feel that her kidney function will improve over the next few days. She should be kept off diuretic for now. She can probably resume her angiotensin receptor earl soon. I will recommend that she follow-up in the office as an outpatient. 2. Congestive heart failure: Volume status has improved since admission and her BNP level came down from 6,188 on February 21 to 1,400 on February 23. Currently she is off diuretic due to worsening kidney function. Her volume status is still compensated, however, she will need to start her diuretic back in a few days. 3. Hypertension: Blood pressure seems well controlled on current antihypertensive medications. She is now on Hydralazine 100 mg t.i.d. and Carvedilol 3.125 mg in addition to Clonidine. Valsartan has been stopped for now due to worsening kidney function. She is also on Amlodipine 10 mg daily which will be continued. The patient will follow-up in the clinic and further adjustments in her antihypertensive medications will be made. DISPOSITION: From a renal standpoint, patient can be discharged to home and follow-up in the office within the next two weeks.
== END 2021-02-24 14:25 | disposition home or self-care (01) | DRG 291 ==
LOC: EDBD 11:55 → M ED 11:55 → M ED INP 16:30 → ENRESERV 18:18 → M PCU 23:59
PROVIDERS: ADMIT Internal Medicine; ATTEND Internal Medicine
DX: I13.0 Hypertensive heart and chronic kidney disease with heart failure and stage 1 through stage 4 chronic kidney disease, or unspecified chronic kidney disease (principal); I50.33 Acute on chronic diastolic (congestive) heart failure; N17.9 Acute kidney failure, unspecified; I47.2 Ventricular tachycardia; R00.1 Bradycardia, unspecified; E11.22 Type 2 diabetes mellitus with diabetic chronic kidney disease; Z85.3 Personal history of malignant neoplasm of breast; Z95.5 Presence of coronary angioplasty implant and graft; Z79.899 Other long term (current) drug therapy; Z79.82 Long term (current) use of aspirin; Z79.01 Long term (current) use of anticoagulants; Z88.0 Allergy status to penicillin; Z88.5 Allergy status to narcotic agent; Z88.8 Allergy status to other drugs, medicaments and biological substances; Z91.018 Allergy to other foods; Z87.891 Personal history of nicotine dependence; I25.10 Atherosclerotic heart disease of native coronary artery without angina pectoris; F41.9 Anxiety disorder, unspecified; F32.9 Major depressive disorder, single episode, unspecified; Z96.653 Presence of artificial knee joint, bilateral; Z90.49 Acquired absence of other specified parts of digestive tract; R55 Syncope and collapse; D72.829 Elevated white blood cell count, unspecified; Z86.73 Personal history of transient ischemic attack (TIA), and cerebral infarction without residual deficits; N18.9 Chronic kidney disease, unspecified; E87.6 Hypokalemia

== ENCOUNTER → 2021-02-27 | Outpatient (REF) | payer MEDICARE ==
[~2021-02-27] MED LIST changes: +ASPI81CH33 PO; +BASA100I SC; +MECL25CH45 PO; +NASA1SPR NARES; +ZOLO50TA PO
[2021-02-28 12:22] LABS: HEMOGLOBIN 11.9 g/dl (12.0-15.5); MEAN CORPUSCULAR HEMOGLOBIN 28.4 pg (27.0-33.0); MEAN CORPUSCULAR HGB CONC 31.3 g/dl (32.0-36.5); MEAN CORPUSCULAR VOLUME 90.7 fl (80.0-96.0); PLATELET COUNT, AUTOMATED 283 10^3/uL (150-450); RED BLOOD COUNT 4.19 10^6/uL (4.00-5.40); WHITE BLOOD COUNT 10.8 10^3/uL (4.0-10.0)
[2021-02-28 14:03] LABS: CALCIUM LEVEL 10.1 MG/DL (8.8-10.2); CREATININE FOR GFR 1.12 MG/DL (0.55-1.30); POTASSIUM SERUM 3.5 MEQ/L (3.5-5.1)
== END ==
LOC: M SFHCCLAY 13:49
PROVIDERS: ATTEND Family Medicine
DX: I50.32 Chronic diastolic (congestive) heart failure (principal)

== ENCOUNTER → 2021-04-10 | Outpatient (REF) | payer MEDICARE ==
[2021-04-10 11:21] LABS: BASO # 0.1 10^3/uL (0.0-0.2); BASO % 1.3 % (0.0-1.0); EOS # 0.6 10^3/uL (0.0-0.5); EOS % 8.1 % (0.0-3.0); HEMATOCRIT 35.7 % (36.0-47.0); LYMPH # 1.9 10^3/uL (1.5-5.0); LYMPH % 26.7 % (24.0-44.0); MEAN CORPUSCULAR HGB CONC 30.8 g/dl (32.0-36.5); MEAN CORPUSCULAR VOLUME 87.7 fl (80.0-96.0); MONO # 0.7 10^3/uL (0.0-0.8); MONO % 9.7 % (2.0-8.0); NEUTROPHILS # 3.7 10^3/uL (1.5-8.5); NEUTROPHILS % 54.1 % (36.0-66.0); PLATELET COUNT, AUTOMATED 366 10^3/uL (150-450); RED BLOOD COUNT 4.07 10^6/uL (4.00-5.40); WHITE BLOOD COUNT 6.9 10^3/uL (4.0-10.0)
[2021-04-10 12:04] LABS: CREATININE FOR GFR 1.17 MG/DL (0.55-1.30); GLOMERULAR FILTRATION RATE 47.5 (>39); POTASSIUM SERUM 4.2 MEQ/L (3.5-5.1)
== END ==
LOC: M SFHCCLAY 07:02
PROVIDERS: ATTEND Family Medicine
DX: I50.32 Chronic diastolic (congestive) heart failure (principal)

== ENCOUNTER → 2021-05-01 | Outpatient (REF) | payer MEDICARE ==
[2021-05-02 12:59] LABS: HEMOGLOBIN A1c 8.1 %
== END ==
LOC: M SFHCCLAY 14:51
PROVIDERS: ATTEND Family Medicine
DX: E11.8 Type 2 diabetes mellitus with unspecified complications (principal)
CPT/HCPCS: 83036; G0463

== ENCOUNTER → 2021-05-01 | Outpatient (REF) | payer MEDICARE ==
[~2021-05-01] MED LIST changes: +DONE-1 PO; -DONETAB6 PO; -MONT10TA10 PO; +MONT10TA97 PO; +POTA-151 PO; -POTA20TA6 PO
[2021-05-02 12:11] LABS: CHOLESTEROL RISK RATIO 5.526 (<5)
== END ==
LOC: M LABDRAWC 10:57
PROVIDERS: ATTEND Physician Assistant
DX: I25.10 Atherosclerotic heart disease of native coronary artery without angina pectoris (principal); I65.23 Occlusion and stenosis of bilateral carotid arteries; E78.2 Mixed hyperlipidemia

== ENCOUNTER → 2021-06-26 | Outpatient (CLI) | payer MEDICARE | LOC: M LABSMTC 09:55 | PROVIDERS: ATTEND Surgery Vascular Surgery | DX: Z11.52 Encounter for screening for COVID-19 (principal) ==

== ENCOUNTER 2021-07-29 13:03 | Inpatient (IN) | payer MEDICARE ==
[~2021-07-29] VITALS: Ht 165.1 cm; Wt 83.4 kg
[~2021-07-29 13:03] MED LIST changes: +FEXO-117 PO; -FEXO180T58 PO
[2021-07-29] MEDS ORDERED: ZOLO100T PO (14:12)
[2021-07-29] MEDS ORDERED: HYDR100T PO (14:12)
[2021-07-29] MEDS ORDERED: VALS1TAB68 PO (14:15)
[2021-07-29] MEDS ORDERED: METO1TAB87 PO (14:15)
[2021-07-29] MEDS ORDERED: SPIR50TA4 PO (14:16)
[2021-07-29] MEDS ORDERED: FERR325T3 PO (14:18)
[2021-07-29] MEDS ORDERED: VENTAER INH (14:18)
[2021-07-29] MEDS ORDERED: CALC1CAP31 PO (14:20)
[2021-07-29] MEDS ORDERED: INSUHUMDS SC (14:23)
[2021-07-29] MEDS ORDERED: LANTINJ4 SC (14:23)
[2021-07-29] MEDS ORDERED: FURO40TA2 PO (14:24)
[2021-07-29] MEDS ORDERED: HEPARIN (14:31)
[2021-07-29] MEDS ORDERED: BUPR150T12 PO (14:33)
[2021-07-29] MEDS ORDERED: ONDA4TAB6 PO (14:36)
[2021-07-29] MEDS ORDERED: REME15TA2 PO (14:36)
[2021-07-29] MEDS ORDERED: HEPA100I26 SC (14:40)
[2021-07-29] MEDS ORDERED: HOME MED LIST COMPLETE! XX SCH (15:10)
[2021-07-29 15:47] LABS: BASO # 0.1 10^3/uL (0.0-0.2); BASO % 1.2 % (0.0-1.0); EOS # 0.2 10^3/uL (0.0-0.5); EOS % 1.5 % (0.0-3.0); HEMATOCRIT 27.2 % (36.0-47.0); HEMOGLOBIN 8.3 g/dl (12.0-15.5); LYMPH # 1.7 10^3/uL (1.5-5.0); LYMPH % 16.8 % (24.0-44.0); MEAN CORPUSCULAR HEMOGLOBIN 27.5 pg (27.0-33.0); MEAN CORPUSCULAR HGB CONC 30.5 g/dl (32.0-36.5); MEAN CORPUSCULAR VOLUME 90.1 fl (80.0-96.0); MONO % 9.8 % (2.0-8.0); NEUTROPHILS # 6.9 10^3/uL (1.5-8.5); NEUTROPHILS % 68.9 % (36.0-66.0); PLATELET COUNT, AUTOMATED 572 10^3/uL (150-450); RED BLOOD COUNT 3.02 10^6/uL (4.00-5.40)
[2021-07-29 15:57] LABS: INR 1.08; PROTHROMBIN TIME 14.4 SECONDS (12.7-14.5)
[2021-07-29 15:58] LABS: PARTIAL THROMBOPLASTIN TIME 28.7 SECONDS (25.9-37.0)
[2021-07-29 16:22] LABS: MB/CK RELATIVE INDEX 2.7 (< OR =4)
[2021-07-29 16:36] LABS: ALBUMIN 2.9 GM/DL (3.2-5.2); ALT/SGPT 27 U/L (12-78); BILIRUBIN,DIRECT < 0.1 MG/DL (0.0-0.2); BILIRUBIN,TOTAL 0.2 MG/DL (0.2-1.0); BLOOD UREA NITROGEN 163 MG/DL (7-18); CARBON DIOXIDE LEVEL 20 MEQ/L (21-32); CHLORIDE LEVEL 109 MEQ/L (98-107); CREATININE FOR GFR 8.12 MG/DL (0.55-1.30); GLOMERULAR FILTRATION RATE 5.1 (>39); GLUCOSE, FASTING 200 MG/DL (70-100); LIPASE 385 U/L (73-393); SODIUM LEVEL 135 MEQ/L (136-145); TOTAL PROTEIN 6.9 GM/DL (6.4-8.2)
[2021-07-29 16:37] LABS: POTASSIUM SERUM 6.8 MEQ/L (3.5-5.1)
[2021-07-29] MEDS ORDERED: NS 500 ML IV ONE (16:45)
[2021-07-29 17:44] LABS: RSV AMPLIFICATION NEGATIVE (NEGATIVE)
[2021-07-29] MEDS ORDERED: DEXTROSE 50% 50 ML SYRINGE IV PRN (19:45)
[2021-07-29] MEDS ORDERED: NS 1,000 ML IV ONE (19:45)
[2021-07-29] MEDS ORDERED: GLUCOSE 4GM CHEW TABLET PO PRN (19:45)
[2021-07-29] MEDS ORDERED: GLUCAGON INJ 1MG VIAL SC PRN (19:45)
[2021-07-29] MEDS ORDERED: ONDANSETRON 4MG/2ML VIAL IV PRN (19:45)
[2021-07-29] MEDS ORDERED: SOD POLYSTYRENE SULFONATE SUSP 15 GM/60 ML UD PO ONE (19:50)
[2021-07-29] MEDS ORDERED: FUROSEMIDE 100MG/10ML VIAL (J1940) IV ONE (19:50)
[2021-07-29] MEDS ORDERED: NS 1,000 ML IV SCH (19:50)
[2021-07-29 20:13] LABS: CALCIUM LEVEL 10.1 MG/DL (8.8-10.2); CREATININE FOR GFR 8.08 MG/DL (0.55-1.30); GLOMERULAR FILTRATION RATE 5.1 (>39); POTASSIUM SERUM 6.8 MEQ/L (3.5-5.1)
[2021-07-29] MEDS ORDERED: PATIROMER SORBITEX CALCIUM 8.4 GM POWDER PACKET (VELTASSA) PO ONE (20:25)
[2021-07-29] MEDS: HumaLOG INSULIN (NovoLOG) PER UNIT SC SCH (21:00)
[2021-07-29 21:05] VITALS: BP 152/65
[2021-07-29] MEDS: METOPROLOL TART 25 MG TABLET PO SCH (21:42)
[2021-07-29] MEDS: HEPARIN SOD (PORCINE) 5000UNITS/ML 1ML VIAL/SYRINGE SQ SCH (21:42)
[2021-07-29] MEDS: cefTRIAXone SOD 1 GM in D5W MINI-BAG PLUS 50 ML IV SCH (22:39)
[2021-07-30] VITALS (18 sets, daily range): BP systolic 116–179; BP diastolic 49–83; PULSE 80
[2021-07-30 00:36] LABS: CALCIUM LEVEL 9.5 MG/DL (8.8-10.2); CREATININE FOR GFR 7.58 MG/DL (0.55-1.30); GLOMERULAR FILTRATION RATE 5.5 (>39); POTASSIUM SERUM 5.7 MEQ/L (3.5-5.1)
[2021-07-30 05:40] LABS: BASO # 0.1 10^3/uL (0.0-0.2); BASO % 1.1 % (0.0-1.0); EOS # 0.4 10^3/uL (0.0-0.5); HEMATOCRIT 23.4 % (36.0-47.0); HEMOGLOBIN 7.1 g/dl (12.0-15.5); LYMPH # 1.5 10^3/uL (1.5-5.0); LYMPH % 14.1 % (24.0-44.0); MEAN CORPUSCULAR HEMOGLOBIN 27.5 pg (27.0-33.0); MEAN CORPUSCULAR HGB CONC 30.3 g/dl (32.0-36.5); MEAN CORPUSCULAR VOLUME 90.7 fl (80.0-96.0); MONO # 0.8 10^3/uL (0.0-0.8); NEUTROPHILS # 7.4 10^3/uL (1.5-8.5); NEUTROPHILS % 71.3 % (36.0-66.0); RED BLOOD COUNT 2.58 10^6/uL (4.00-5.40); WHITE BLOOD COUNT 10.4 10^3/uL (4.0-10.0)
[2021-07-30 05:47] LABS: PLATELET COUNT, AUTOMATED 471 10^3/uL (150-450)
[2021-07-30 06:02] LABS: CALCIUM LEVEL 9.7 MG/DL (8.8-10.2); CREATININE FOR GFR 6.88 MG/DL (0.55-1.30); GLOMERULAR FILTRATION RATE 6.1 (>39); POTASSIUM SERUM 5.1 MEQ/L (3.5-5.1)
[2021-07-30] MEDS: HumaLOG INSULIN (NovoLOG) PER UNIT SC SCH ×4 (09:27→20:28)
[2021-07-30] MEDS: NS 0.45% 1,000 ML IV SCH (09:34)
[2021-07-30] MEDS: SERTRALINE 100 MG TAB PO SCH (09:52)
[2021-07-30] MEDS: METOPROLOL TART 25 MG TABLET PO SCH ×2 (09:52→20:29)
[2021-07-30] MEDS: CLOPIDOGREL 75 MG TAB PO SCH (09:53)
[2021-07-30] MEDS: HEPARIN SOD (PORCINE) 5000UNITS/ML 1ML VIAL/SYRINGE SQ SCH ×2 (09:53→20:28)
[2021-07-30] MEDS: amLODIPine 5 MG TAB PO SCH ×2 (09:53→20:29)
[2021-07-30] MEDS: buPROPion **XL** TABLET 150MG (WELLBUTRIN XL) PO SCH (09:54)
[2021-07-30 10:28] LABS: CK-MB VALUE MASS 4.7 NG/ML (<3.6)
[2021-07-30] MEDS ORDERED: GI COCKTAIL 50ML BTL(HYOSCYAMINE/MAALOX/LIDOCAINE VISCOUS)(1:3:1) PO ONE (11:00)
[2021-07-30] MEDS: PANTOPRAZOLE 40MG VIAL (C9113 PER 1) IV SCH (11:50)
[2021-07-30] MEDS: SUCRALFATE SUSP 1GM/10ML UD PO SCH ×3 (11:50→20:29)
[2021-07-30] MEDS: cefTRIAXone SOD 1 GM in D5W MINI-BAG PLUS 50 ML IV SCH (23:18)
[2021-07-31] VITALS (7 sets, daily range): BP systolic 138–176; BP diastolic 57–74
[2021-07-31] MEDS: NS 0.45% 1,000 ML IV SCH ×3 (03:21→14:13)
[2021-07-31 05:44] LABS: BASO # 0.1 10^3/uL (0.0-0.2); BASO % 0.8 % (0.0-1.0); EOS # 0.6 10^3/uL (0.0-0.5); EOS % 6.1 % (0.0-3.0); HEMATOCRIT 27.7 % (36.0-47.0); HEMOGLOBIN 8.8 g/dl (12.0-15.5); LYMPH % 20.5 % (24.0-44.0); MEAN CORPUSCULAR HEMOGLOBIN 27.8 pg (27.0-33.0); MEAN CORPUSCULAR HGB CONC 31.8 g/dl (32.0-36.5); MEAN CORPUSCULAR VOLUME 87.7 fl (80.0-96.0); MONO # 0.6 10^3/uL (0.0-0.8); MONO % 6.6 % (2.0-8.0); NEUTROPHILS # 5.9 10^3/uL (1.5-8.5); NEUTROPHILS % 61.4 % (36.0-66.0); PLATELET COUNT, AUTOMATED 373 10^3/uL (150-450); RED BLOOD COUNT 3.16 10^6/uL (4.00-5.40); WHITE BLOOD COUNT 9.7 10^3/uL (4.0-10.0)
[2021-07-31 06:11] LABS: CALCIUM LEVEL 9.3 MG/DL (8.8-10.2); CREATININE FOR GFR 3.41 MG/DL (0.55-1.30); GLOMERULAR FILTRATION RATE 13.8 (>39); PHOSPHORUS LEVEL 2.9 MG/DL (2.5-4.9); POTASSIUM SERUM 4.8 MEQ/L (3.5-5.1)
[2021-07-31] MEDS: SERTRALINE 100 MG TAB PO SCH (08:02)
[2021-07-31] MEDS: buPROPion **XL** TABLET 150MG (WELLBUTRIN XL) PO SCH (08:02)
[2021-07-31] MEDS: PANTOPRAZOLE 40MG VIAL (C9113 PER 1) IV SCH (08:02)
[2021-07-31] MEDS: METOPROLOL TART 25 MG TABLET PO SCH ×2 (08:02→21:04)
[2021-07-31] MEDS: CLOPIDOGREL 75 MG TAB PO SCH (08:02)
[2021-07-31] MEDS: SUCRALFATE SUSP 1GM/10ML UD PO SCH ×4 (08:03→21:04)
[2021-07-31] MEDS: HEPARIN SOD (PORCINE) 5000UNITS/ML 1ML VIAL/SYRINGE SQ SCH ×2 (08:03→21:03)
[2021-07-31] MEDS: amLODIPine 5 MG TAB PO SCH ×2 (08:03→21:05)
[2021-07-31] MEDS: HumaLOG INSULIN (NovoLOG) PER UNIT SC SCH ×4 (08:05→20:52)
[2021-07-31 08:52] LABS: TOTAL 25(OH) VITAMIN D 18.1 NG/ML (30.0-100.0)
[2021-07-31 08:53] LABS: PTH INTACT 104.9 PG/ML (18.5-88.0)
[2021-07-31] MEDS: ACETAMINOPHEN TAB 650MG DOSE (2X325MG) PO PRN ×2 (14:12→21:05)
[2021-07-31] MEDS: cefTRIAXone SOD 1 GM in D5W MINI-BAG PLUS 50 ML IV SCH (21:03)
[2021-08-01] VITALS: BP 146/57
[2021-08-01 01:09] VITALS: BP 141/60
[2021-08-01 01:30] VITALS: BP 140/44
[2021-08-01] MEDS: NS 0.45% 1,000 ML IV SCH ×3 (01:32→20:18)
[2021-08-01 06:00] VITALS: BP 148/64
[2021-08-01 06:56] LABS: HEMATOCRIT 26.5 % (36.0-47.0); HEMOGLOBIN 8.1 g/dl (12.0-15.5); MEAN CORPUSCULAR HEMOGLOBIN 27.5 pg (27.0-33.0); MEAN CORPUSCULAR HGB CONC 30.6 g/dl (32.0-36.5); MEAN CORPUSCULAR VOLUME 89.8 fl (80.0-96.0); PLATELET COUNT, AUTOMATED 316 10^3/uL (150-450); RED BLOOD COUNT 2.95 10^6/uL (4.00-5.40); WHITE BLOOD COUNT 8.7 10^3/uL (4.0-10.0)
[2021-08-01 07:16] LABS: GLOMERULAR FILTRATION RATE 25.6 (>39); POTASSIUM SERUM 4.4 MEQ/L (3.5-5.1)
[2021-08-01 07:31] LABS: EOSINOPHILS 4 % (0-3); LYMPHOCYTES 16 % (16-44); METAMYELOCYTES 3 % (0-0); MONOCYTES 8 % (0-5); MYELOCYTES 1 % (0-0); NEUTROPHILS 65 % (28-66)
[2021-08-01 07:32] LABS: MICROCYTOSIS 1+; OVALOCYTES 1+
[2021-08-01 07:33] LABS: PLATELET ESTIMATE NORMAL (NORMAL)
[2021-08-01] MEDS: CLOPIDOGREL 75 MG TAB PO SCH (08:05)
[2021-08-01] MEDS: SERTRALINE 100 MG TAB PO SCH (08:05)
[2021-08-01] MEDS: ACETAMINOPHEN TAB 650MG DOSE (2X325MG) PO PRN (08:05)
[2021-08-01] MEDS: amLODIPine 5 MG TAB PO SCH ×2 (08:06→20:18)
[2021-08-01] MEDS: HEPARIN SOD (PORCINE) 5000UNITS/ML 1ML VIAL/SYRINGE SQ SCH ×2 (08:06→20:17)
[2021-08-01] MEDS: SUCRALFATE SUSP 1GM/10ML UD PO SCH ×4 (08:06→20:17)
[2021-08-01] MEDS: PANTOPRAZOLE 40MG VIAL (C9113 PER 1) IV SCH (08:06)
[2021-08-01] MEDS: METOPROLOL TART 25 MG TABLET PO SCH ×2 (08:06→20:18)
[2021-08-01] MEDS: buPROPion **XL** TABLET 150MG (WELLBUTRIN XL) PO SCH (08:06)
[2021-08-01] MEDS: HumaLOG INSULIN (NovoLOG) PER UNIT SC SCH ×4 (08:07→20:18)
[2021-08-01] MEDS ORDERED: DARBEPOETIN 100 MCG/0.5 ML *NON-DIALYSIS* SYRINGE (J0881) IV SCH (09:00)
[2021-08-01] MEDS: CALCITRIOL 0.25 MCG CAP (S0169) PO SCH (12:26)
[2021-08-01 14:00] VITALS: BP 148/52
[2021-08-01] MEDS: CEPHALEXIN 500 MG CAP PO SCH (20:17)
[2021-08-01 21:47] VITALS: BP 155/50
[2021-08-02 02:34] VITALS: BP 182/70
[2021-08-02 05:34] LABS: BASO # 0.1 10^3/uL (0.0-0.2); BASO % 0.7 % (0.0-1.0); EOS # 0.5 10^3/uL (0.0-0.5); EOS % 5.9 % (0.0-3.0); HEMATOCRIT 25.5 % (36.0-47.0); HEMOGLOBIN 8.1 g/dl (12.0-15.5); LYMPH # 1.8 10^3/uL (1.5-5.0); LYMPH % 19.6 % (24.0-44.0); MEAN CORPUSCULAR HEMOGLOBIN 27.9 pg (27.0-33.0); MEAN CORPUSCULAR HGB CONC 31.8 g/dl (32.0-36.5); MEAN CORPUSCULAR VOLUME 87.9 fl (80.0-96.0); MONO # 0.8 10^3/uL (0.0-0.8); MONO % 8.7 % (2.0-8.0); NEUTROPHILS # 5.6 10^3/uL (1.5-8.5); NEUTROPHILS % 61.1 % (36.0-66.0); PLATELET COUNT, AUTOMATED 276 10^3/uL (150-450); WHITE BLOOD COUNT 9.1 10^3/uL (4.0-10.0)
[2021-08-02] MEDS: CEPHALEXIN 500 MG CAP PO SCH ×3 (05:35→20:11)
[2021-08-02 06:00] VITALS: BP 179/68
[2021-08-02 06:01] LABS: CALCIUM LEVEL 8.8 MG/DL (8.8-10.2); CREATININE FOR GFR 1.43 MG/DL (0.55-1.30); GLOMERULAR FILTRATION RATE 37.7 (>39); MAGNESIUM LEVEL 1.4 MG/DL (1.8-2.4); POTASSIUM SERUM 4.1 MEQ/L (3.5-5.1)
[2021-08-02] MEDS: SUCRALFATE SUSP 1GM/10ML UD PO SCH ×4 (08:47→20:11)
[2021-08-02] MEDS: NS 0.45% 1,000 ML IV SCH (08:47)
[2021-08-02] MEDS: CLOPIDOGREL 75 MG TAB PO SCH (08:48)
[2021-08-02] MEDS: CALCITRIOL 0.25 MCG CAP (S0169) PO SCH (08:48)
[2021-08-02] MEDS: buPROPion **XL** TABLET 150MG (WELLBUTRIN XL) PO SCH (08:48)
[2021-08-02] MEDS: HumaLOG INSULIN (NovoLOG) PER UNIT SC SCH ×4 (08:48→20:12)
[2021-08-02] MEDS: PANTOPRAZOLE 40MG VIAL (C9113 PER 1) IV SCH (08:48)
[2021-08-02] MEDS: SERTRALINE 100 MG TAB PO SCH (08:48)
[2021-08-02] MEDS: METOPROLOL TART 25 MG TABLET PO SCH (08:50)
[2021-08-02] MEDS: amLODIPine 5 MG TAB PO SCH ×2 (08:51→20:11)
[2021-08-02] MEDS: HEPARIN SOD (PORCINE) 5000UNITS/ML 1ML VIAL/SYRINGE SQ SCH ×2 (08:51→20:11)
[2021-08-02 14:00] VITALS: BP 160/67
[2021-08-02] MEDS: ACETAMINOPHEN TAB 650MG DOSE (2X325MG) PO PRN (20:08)
[2021-08-02] MEDS: METOPROLOL TART 50 MG TAB PO SCH (20:11)
[2021-08-02 21:46] VITALS: BP 161/66
[2021-08-03] MEDS: CEPHALEXIN 500 MG CAP PO SCH ×3 (05:24→20:06)
[2021-08-03] MEDS: ACETAMINOPHEN TAB 650MG DOSE (2X325MG) PO PRN ×2 (05:24→20:07)
[2021-08-03 06:00] VITALS: BP 172/70
[2021-08-03 07:12] LABS: BASO % 0.4 % (0.0-1.0); EOS # 0.5 10^3/uL (0.0-0.5); HEMATOCRIT 26.9 % (36.0-47.0); HEMOGLOBIN 8.4 g/dl (12.0-15.5); LYMPH # 1.7 10^3/uL (1.5-5.0); LYMPH % 19.2 % (24.0-44.0); MEAN CORPUSCULAR HEMOGLOBIN 27.5 pg (27.0-33.0); MEAN CORPUSCULAR HGB CONC 31.2 g/dl (32.0-36.5); MEAN CORPUSCULAR VOLUME 87.9 fl (80.0-96.0); MONO # 0.7 10^3/uL (0.0-0.8); MONO % 7.8 % (2.0-8.0); NEUTROPHILS # 5.7 10^3/uL (1.5-8.5); NEUTROPHILS % 63.5 % (36.0-66.0); PLATELET COUNT, AUTOMATED 264 10^3/uL (150-450); RED BLOOD COUNT 3.06 10^6/uL (4.00-5.40)
[2021-08-03 07:28] LABS: CREATININE FOR GFR 1.23 MG/DL (0.55-1.30); GLOMERULAR FILTRATION RATE 44.8 (>39); POTASSIUM SERUM 3.7 MEQ/L (3.5-5.1)
[2021-08-03] MEDS: SERTRALINE 100 MG TAB PO SCH (08:55)
[2021-08-03] MEDS: CALCITRIOL 0.25 MCG CAP (S0169) PO SCH (08:55)
[2021-08-03] MEDS: PANTOPRAZOLE 40MG VIAL (C9113 PER 1) IV SCH (08:55)
[2021-08-03] MEDS: CLOPIDOGREL 75 MG TAB PO SCH (08:57)
[2021-08-03] MEDS: SUCRALFATE SUSP 1GM/10ML UD PO SCH ×4 (08:57→20:05)
[2021-08-03] MEDS: HumaLOG INSULIN (NovoLOG) PER UNIT SC SCH ×4 (08:57→19:41)
[2021-08-03] MEDS: buPROPion **XL** TABLET 150MG (WELLBUTRIN XL) PO SCH (08:57)
[2021-08-03] MEDS: amLODIPine 5 MG TAB PO SCH ×2 (08:57→20:06)
[2021-08-03] MEDS: METOPROLOL TART 50 MG TAB PO SCH ×2 (08:57→20:06)
[2021-08-03] MEDS: HEPARIN SOD (PORCINE) 5000UNITS/ML 1ML VIAL/SYRINGE SQ SCH ×2 (08:58→20:06)
[2021-08-03 14:00] VITALS: BP 157/55
[2021-08-03 21:53] VITALS: BP 159/56
[2021-08-04] MEDS: CEPHALEXIN 500 MG CAP PO SCH ×3 (05:20→22:06)
[2021-08-04 06:00] VITALS: BP 164/68
[2021-08-04 06:35] LABS: BASO # 0.1 10^3/uL (0.0-0.2); BASO % 0.8 % (0.0-1.0); EOS # 0.5 10^3/uL (0.0-0.5); EOS % 5.4 % (0.0-3.0); HEMATOCRIT 28.2 % (36.0-47.0); HEMOGLOBIN 8.8 g/dl (12.0-15.5); LYMPH # 1.7 10^3/uL (1.5-5.0); LYMPH % 18.8 % (24.0-44.0); MEAN CORPUSCULAR HEMOGLOBIN 27.9 pg (27.0-33.0); MEAN CORPUSCULAR HGB CONC 31.2 g/dl (32.0-36.5); MEAN CORPUSCULAR VOLUME 89.5 fl (80.0-96.0); MONO # 0.7 10^3/uL (0.0-0.8); MONO % 7.4 % (2.0-8.0); NEUTROPHILS # 5.7 10^3/uL (1.5-8.5); NEUTROPHILS % 65.1 % (36.0-66.0); PLATELET COUNT, AUTOMATED 257 10^3/uL (150-450); RED BLOOD COUNT 3.15 10^6/uL (4.00-5.40); WHITE BLOOD COUNT 8.8 10^3/uL (4.0-10.0)
[2021-08-04 07:01] LABS: CALCIUM LEVEL 9.4 MG/DL (8.8-10.2); CREATININE FOR GFR 1.17 MG/DL (0.55-1.30); GLOMERULAR FILTRATION RATE 47.5 (>39); POTASSIUM SERUM 3.9 MEQ/L (3.5-5.1)
[2021-08-04] MEDS: HumaLOG INSULIN (NovoLOG) PER UNIT SC SCH ×4 (08:30→20:23)
[2021-08-04] MEDS: SERTRALINE 100 MG TAB PO SCH (08:31)
[2021-08-04] MEDS: HEPARIN SOD (PORCINE) 5000UNITS/ML 1ML VIAL/SYRINGE SQ SCH ×2 (08:31→20:21)
[2021-08-04] MEDS: buPROPion **XL** TABLET 150MG (WELLBUTRIN XL) PO SCH (08:31)
[2021-08-04] MEDS: CLOPIDOGREL 75 MG TAB PO SCH (08:31)
[2021-08-04] MEDS: CALCITRIOL 0.25 MCG CAP (S0169) PO SCH (08:32)
[2021-08-04] MEDS: amLODIPine 5 MG TAB PO SCH ×2 (08:33→20:22)
[2021-08-04] MEDS: METOPROLOL TART 50 MG TAB PO SCH ×2 (08:33→20:22)
[2021-08-04] MEDS: SUCRALFATE SUSP 1GM/10ML UD PO SCH ×4 (08:34→20:22)
[2021-08-04] MEDS: PANTOPRAZOLE 40MG VIAL (C9113 PER 1) IV SCH (09:06)
[2021-08-04 14:00] VITALS: BP 90/79
[2021-08-04 22:00] VITALS: BP 171/64
[2021-08-05] MEDS: CEPHALEXIN 500 MG CAP PO SCH ×2 (05:32→12:10)
[2021-08-05 06:00] VITALS: BP 160/65
[2021-08-05 06:53] LABS: BASO # 0.1 10^3/uL (0.0-0.2); BASO % 0.9 % (0.0-1.0); EOS # 0.3 10^3/uL (0.0-0.5); EOS % 3.9 % (0.0-3.0); HEMATOCRIT 29.8 % (36.0-47.0); HEMOGLOBIN 9.1 g/dl (12.0-15.5); LYMPH # 1.5 10^3/uL (1.5-5.0); LYMPH % 17.1 % (24.0-44.0); MEAN CORPUSCULAR HEMOGLOBIN 27.2 pg (27.0-33.0); MEAN CORPUSCULAR HGB CONC 30.5 g/dl (32.0-36.5); MEAN CORPUSCULAR VOLUME 89.2 fl (80.0-96.0); MONO # 0.7 10^3/uL (0.0-0.8); MONO % 7.9 % (2.0-8.0); NEUTROPHILS % 68.6 % (36.0-66.0); PLATELET COUNT, AUTOMATED 282 10^3/uL (150-450); RED BLOOD COUNT 3.34 10^6/uL (4.00-5.40); WHITE BLOOD COUNT 8.7 10^3/uL (4.0-10.0)
[2021-08-05 07:16] LABS: CALCIUM LEVEL 9.3 MG/DL (8.8-10.2); CREATININE FOR GFR 1.25 MG/DL (0.55-1.30); POTASSIUM SERUM 4.2 MEQ/L (3.5-5.1)
[2021-08-05] MEDS: SUCRALFATE SUSP 1GM/10ML UD PO SCH ×2 (07:57→12:09)
[2021-08-05] MEDS: PANTOPRAZOLE 40MG VIAL (C9113 PER 1) IV SCH (07:57)
[2021-08-05 07:58] VITALS: BP 160/65
[2021-08-05] MEDS: buPROPion **XL** TABLET 150MG (WELLBUTRIN XL) PO SCH (07:58)
[2021-08-05] MEDS: HumaLOG INSULIN (NovoLOG) PER UNIT SC SCH ×2 (07:58→12:10)
[2021-08-05] MEDS: SERTRALINE 100 MG TAB PO SCH (07:58)
[2021-08-05] MEDS: METOPROLOL TART 50 MG TAB PO SCH (07:58)
[2021-08-05] MEDS: CLOPIDOGREL 75 MG TAB PO SCH (07:59)
[2021-08-05] MEDS: CALCITRIOL 0.25 MCG CAP (S0169) PO SCH (07:59)
[2021-08-05] MEDS: HEPARIN SOD (PORCINE) 5000UNITS/ML 1ML VIAL/SYRINGE SQ SCH (07:59)
[2021-08-05] MEDS: amLODIPine 5 MG TAB PO SCH (07:59)
[2021-08-05] MEDS ORDERED: SUCR1TA PO (08:38)
[2021-08-05] MEDS ORDERED: PANT40TA29 PO (08:38)
[2021-08-05 14:00] VITALS: BP 150/50
== END 2021-08-05 16:00 | DRG 682 ==
LOC: M ED 13:03 → EDBD 13:03 → M ED INP 18:00 → ENRESERV 18:44 → M PCU 21:05 → M MS5PR 08-01 01:25
PROVIDERS: ADMIT Internal Medicine Nephrology; ATTEND Family Medicine
DX: N17.9 Acute kidney failure, unspecified (principal); G93.41 Metabolic encephalopathy; I69.351 Hemiplegia and hemiparesis following cerebral infarction affecting right dominant side; I50.32 Chronic diastolic (congestive) heart failure; E87.2 Acidosis; I13.0 Hypertensive heart and chronic kidney disease with heart failure and stage 1 through stage 4 chronic kidney disease, or unspecified chronic kidney disease; N39.0 Urinary tract infection, site not specified; I25.10 Atherosclerotic heart disease of native coronary artery without angina pectoris; E87.5 Hyperkalemia; E11.22 Type 2 diabetes mellitus with diabetic chronic kidney disease; N18.30 Chronic kidney disease, stage 3 unspecified; R33.9 Retention of urine, unspecified; K21.9 Gastro-esophageal reflux disease without esophagitis; D64.9 Anemia, unspecified; E21.1 Secondary hyperparathyroidism, not elsewhere classified; Z79.4 Long term (current) use of insulin; Z95.0 Presence of cardiac pacemaker; Z79.01 Long term (current) use of anticoagulants; B96.1 Klebsiella pneumoniae [K. pneumoniae] as the cause of diseases classified elsewhere; Z79.899 Other long term (current) drug therapy; E78.5 Hyperlipidemia, unspecified; Z91.018 Allergy to other foods; Z88.8 Allergy status to other drugs, medicaments and biological substances; Z88.5 Allergy status to narcotic agent; M19.90 Unspecified osteoarthritis, unspecified site; Z96.653 Presence of artificial knee joint, bilateral; Z85.3 Personal history of malignant neoplasm of breast; F41.9 Anxiety disorder, unspecified; F32.A Depression, unspecified

== ENCOUNTER → 2024-08-25 | Outpatient (REF) | payer MEDICARE, MEDICAID ==
[~2024-08-25] MED LIST changes: +BUPR-597 PO; -BUPR300T92 PO; +CALC1CAP31 PO; -FEXO-117 PO; +FEXO-193 PO; +HEPA100I26 SC; +HEPARIN; -HYDR-3911 PO; +HYDR100T PO; -HYDR200T3 PO; +HYDR200T46 PO; -HYDR25TA PO; +HYDR25TA88 PO; -HYDR50TA PO; +HYDR50TA46 PO; +HYDR50TA47 PO; +INSUHUMDS SC; +LANTINJ4 SC; +METO1TAB87 PO; +MIRT-84 PO; +ONDA-282 PO; +PANT40TA29 PO; +POTA-298 PO; -POTA1TAB14 PO; +SPIR50TA4 PO; +SUCR1TA PO; +VALS1TAB68 PO; +VENTAER INH; +ZOLO100T PO
[2024-08-25 18:31] LABS: PERCENT SATURATION 4.7 % (13.2-45.0)
== END ==
LOC: M LAB REF 17:05
PROVIDERS: ATTEND Internal Medicine Nephrology
DX: D50.9 Iron deficiency anemia, unspecified (principal)

== ENCOUNTER 2024-09-09 08:04 | Inpatient (IN) | payer MEDICARE, MEDICAID ==
[~2024-09-09] VITALS: Ht 162.6 cm; Wt 88.0 kg
[2024-09-09] MEDS: IPRATROPIUM 0.5MG/ALBUTEROL 2.5MG INH SOL UD 3ML NEB ONE (08:30)
[2024-09-09] MEDS: ALBUTEROL SULFATE 2.5MG/0.5ML INH CONCENTRATE NEB SOLN INH ONE (08:30)
[2024-09-09 08:33] LABS: VENOUS BASE EXCESS 0.2 (-2.0-2.0); VENOUS HCO3 24.9 MMOL/L (23.0-27.0); VENOUS O2 SATURATION 95.1 % (60.0-80.0); VENOUS PARTIAL PRESSURE CO2 40.8 mmHg (38.0-50.0); VENOUS PARTIAL PRESSURE O2 76.8 mmHg (30.0-50.0); VENOUS PH 7.404 UNITS (7.330-7.430); VENOUS STANDARD HCO3 24.6 MMOL/L; VENOUS TOTAL CO2 26.2 MMOL/L (24.0-28.0)
[2024-09-09 08:39] LABS: BASO # 0.1 10^3/uL (0.0-0.2); BASO % 0.8 % (0.0-1.0); EOS # 0.3 10^3/uL (0.0-0.5); EOS % 3.2 % (0.0-3.0); HEMATOCRIT 31.9 % (36.0-47.0); HEMOGLOBIN 9.5 g/dl (12.0-15.5); LYMPH # 1.3 10^3/uL (1.5-5.0); LYMPH % 12.7 % (24.0-44.0); MEAN CORPUSCULAR HEMOGLOBIN 24.1 pg (27.0-33.0); MEAN CORPUSCULAR HGB CONC 29.8 g/dl (32.0-36.5); MONO # 0.7 10^3/uL (0.0-0.8); MONO % 6.8 % (2.0-8.0); NEUTROPHILS # 7.9 10^3/uL (1.5-8.5); NEUTROPHILS % 76.2 % (36.0-66.0); PLATELET COUNT, AUTOMATED 459 10^3/uL (150-450); RED BLOOD COUNT 3.94 10^6/uL (4.00-5.40); WHITE BLOOD COUNT 10.4 10^3/uL (4.0-10.0)
[2024-09-09] MEDS: methylPREDNISolone 125MG 2ML VIAL IV ONE (08:46)
[2024-09-09] MEDS: FUROSEMIDE 40MG/4ML VIAL IV ONE (08:46)
[2024-09-09] MEDS: CARVedilol 12.5 MG TAB PO ONE (08:46)
[2024-09-09] MEDS: **hydrALAZINE** 50 MG TAB PO ONE (08:47)
[2024-09-09 09:04] LABS: CK-MB VALUE MASS 1.3 NG/ML (<3.6)
[2024-09-09 09:07] LABS: ALBUMIN 2.8 G/DL (3.2-5.2); ALKALINE PHOSPHATASE 120 U/L (35-104); ALT/SGPT 10 U/L (7.0-40); AST/SGOT 12 U/L (<34); BILIRUBIN,DIRECT < 0.1 MG/DL (<0.4); BILIRUBIN,TOTAL 0.3 MG/DL (0.3-1.2); BLOOD UREA NITROGEN 13 MG/DL (9-23); CALCIUM LEVEL 9.2 MG/DL (8.3-10.6); CARBON DIOXIDE LEVEL 27 MMOL/L (20-31); CHLORIDE LEVEL 109 MMOL/L (98-107); CPK CREATINE PHOSPHOKINASE 37 U/L (34-145); CREATININE FOR GFR 1.05 MG/DL (0.55-1.30); GLOMERULAR FILTRATION RATE 53.1 (>32); GLUCOSE, FASTING 92 MG/DL (74-106); MB/CK RELATIVE INDEX 3.51 (< OR =4); POTASSIUM SERUM 3.6 MMOL/L (3.5-5.1); SODIUM LEVEL 146 MMOL/L (136-145); TOTAL PROTEIN 6.7 G/DL (5.7-8.2)
[2024-09-09 09:08] LABS: THYROXINE (T4) 7.4 UG/DL (4.5-10.9)
[2024-09-09 09:09] LABS: THYROID STIMULATING HORMONE 1.288 uIU/ML (0.55-4.78)
[2024-09-09] MEDS ORDERED: ISOVUE-370 76% 100ML VIAL As Ordered ONE (09:38)
[2024-09-09 10:24] LABS: CK-MB VALUE MASS 1.2 NG/ML (<3.6)
[2024-09-09 10:26] LABS: MB/CK RELATIVE INDEX 4.13 (< OR =4)
[2024-09-09 13:11] VITALS: BP 168/70; TEMP 98.7; O2SAT 92
[2024-09-09] MEDS ORDERED: DEXTROSE 50% 50ML SYRINGE IV PRN (13:45)
[2024-09-09] MEDS ORDERED: GLUCOSE 4 GM CHEW PO PRN (13:45)
[2024-09-09] MEDS ORDERED: GLUCAGON INJ 1MG VIAL SC PRN (13:45)
[2024-09-09] MEDS: INSULIN LISPRO (NovoLOG) PER UNIT SC SCH ×2 (14:26→21:00)
[2024-09-09] MEDS ORDERED: CINA30TA4 PO (14:56)
[2024-09-09] MEDS ORDERED: CARV12.5 PO (14:56)
[2024-09-09] MEDS ORDERED: ATOR1TAB21 PO (14:56)
[2024-09-09] MEDS ORDERED: SUCR1TA PO (14:56)
[2024-09-09] MEDS ORDERED: POTA10CA70 PO (14:56)
[2024-09-09] MEDS ORDERED: BASA100I SC (14:56)
[2024-09-09 15:25] LABS: KETONE, URINE AUTO RFX NEGATIVE (NEGATIVE); LEUKOCYTE ESTERASE UR AUTO RFX NEGATIVE (NEGATIVE); NITRITE, URINE AUTO RFX NEGATIVE (NEGATIVE); RBC, URINE AUTO RFX 0 /HPF (0-3); SQUAM EPITHELIAL CELL UR AURFX 0 /HPF (0-6); WBC, URINE AUTO RFX 1 /HPF (0-3)
[2024-09-09 16:43] VITALS: BP 180/78; TEMP 98.5; O2SAT 93
[2024-09-09] MEDS: FUROSEMIDE 40MG/4ML VIAL IV SCH (17:09)
[2024-09-09] MEDS: **hydrALAZINE** 50 MG TAB PO SCH (17:09)
[2024-09-09 17:14] VITALS: BP 188/76
[2024-09-09 18:33] VITALS: BP 160/56
[2024-09-09 19:44] VITALS: BP 162/62; TEMP 97.9; O2SAT 93
[2024-09-09] MEDS: DOCUSATE SODIUM 100MG CAPSULE PO SCH (20:57)
[2024-09-09] MEDS: LORazepam 1 MG TAB PO SCH (20:58)
[2024-09-09] MEDS: CARVedilol 12.5 MG TAB PO SCH (20:58)
[2024-09-09] MEDS: SUCRALFATE 1 GM TAB PO SCH (20:59)
[2024-09-09] MEDS: ATORVASTATIN 20 MG TAB PO SCH (20:59)
[2024-09-09] MEDS: ACETAMINOPHEN 325 MG TAB PO PRN (21:03)
[2024-09-09 23:55] VITALS: BP 158/74; TEMP 98.1; O2SAT 94
[2024-09-10] MEDS: POTASSIUM CHLORIDE 10MEQ SR TABLET PO ONE (03:06)
[2024-09-10 03:12] VITALS: BP 160/68; TEMP 98.3; O2SAT 95
[2024-09-10 03:31] LABS: BASO % 0.1 % (0.0-1.0); HEMATOCRIT 30.2 % (36.0-47.0); HEMOGLOBIN 9.1 g/dl (12.0-15.5); LYMPH # 0.8 10^3/uL (1.5-5.0); MEAN CORPUSCULAR HEMOGLOBIN 23.9 pg (27.0-33.0); MEAN CORPUSCULAR HGB CONC 30.1 g/dl (32.0-36.5); MEAN CORPUSCULAR VOLUME 79.5 fl (80.0-96.0); MONO # 0.3 10^3/uL (0.0-0.8); MONO % 3.7 % (2.0-8.0); NEUTROPHILS % 84.6 % (36.0-66.0); PLATELET COUNT, AUTOMATED 426 10^3/uL (150-450); WHITE BLOOD COUNT 7.1 10^3/uL (4.0-10.0)
[2024-09-10 03:42] LABS: MAGNESIUM LEVEL 2.2 MG/DL (1.8-2.4); PHOSPHORUS LEVEL 4.2 MG/DL (2.4-5.1)
[2024-09-10 03:48] LABS: CALCIUM LEVEL 9.1 MG/DL (8.3-10.6); CREATININE FOR GFR 1.31 MG/DL (0.55-1.30); GLOMERULAR FILTRATION RATE 40.7 (>32); POTASSIUM SERUM 3.8 MMOL/L (3.5-5.1)
[2024-09-10 07:23] VITALS: BP 158/68; TEMP 97.7; O2SAT 95
[2024-09-10] MEDS: PANTOPRAZOLE 40MG TAB (PROTONIX) PO SCH (07:54)
[2024-09-10] MEDS: CINACALCET 30 MG TAB (SENSIPAR) PO SCH (07:54)
[2024-09-10] MEDS: CLOPIDOGREL 75 MG TAB PO SCH (07:54)
[2024-09-10] MEDS: SERTRALINE 100 MG TAB PO SCH (07:56)
[2024-09-10] MEDS: MONTELUKAST 10 MG TAB PO SCH (07:56)
[2024-09-10] MEDS: LanTUS (INSULIN GLARGINE INJ) 1 UNITS/0.01 ML SC SCH (07:56)
[2024-09-10 11:55] VITALS: BP 150/70; TEMP 97.8; O2SAT 92
[2024-09-10] MEDS: ALBUTEROL SULFATE 2.5MG/0.5ML INH CONCENTRATE NEB SOLN NEB SCH (16:00)
[2024-09-10] MEDS: ALBUTEROL SULFATE 2.5MG/0.5ML INH CONCENTRATE NEB SOLN NEB ONE (16:00)
[2024-09-10 16:11] VITALS: BP 168/64; TEMP 97.9; O2SAT 91
[2024-09-10 19:20] VITALS: BP 130/58; TEMP 97.2; O2SAT 92
[2024-09-10 21:00] VITALS: BP 146/76; TEMP 97.7; O2SAT 90
[2024-09-11 03:59] VITALS: BP 153/72; TEMP 97.7; O2SAT 91
[2024-09-11 06:34] LABS: BASO # 0.1 10^3/uL (0.0-0.2); BASO % 0.6 % (0.0-1.0); EOS # 0.3 10^3/uL (0.0-0.5); HEMATOCRIT 29.3 % (36.0-47.0); HEMOGLOBIN 8.8 g/dl (12.0-15.5); LYMPH # 1.9 10^3/uL (1.5-5.0); LYMPH % 22.8 % (24.0-44.0); MEAN CORPUSCULAR HEMOGLOBIN 23.8 pg (27.0-33.0); MEAN CORPUSCULAR VOLUME 79.2 fl (80.0-96.0); MONO # 0.7 10^3/uL (0.0-0.8); MONO % 8.8 % (2.0-8.0); NEUTROPHILS # 5.3 10^3/uL (1.5-8.5); NEUTROPHILS % 64.4 % (36.0-66.0); PLATELET COUNT, AUTOMATED 451 10^3/uL (150-450); WHITE BLOOD COUNT 8.2 10^3/uL (4.0-10.0)
[2024-09-11 07:02] LABS: CALCIUM LEVEL 8.7 MG/DL (8.3-10.6); CREATININE FOR GFR 1.3 MG/DL (0.55-1.30); GLOMERULAR FILTRATION RATE 41.1 (>32); PERCENT SATURATION 4.8 % (13.2-45.0); POTASSIUM SERUM 3.9 MMOL/L (3.5-5.1)
[2024-09-11 07:04] LABS: FERRITIN 8.1 NG/ML (7.3-270.7); FOLATE 6.03 NG/ML (>5.4)
[2024-09-11 08:37] VITALS: BP 158/67; TEMP 97.7; O2SAT 88
[2024-09-11] MEDS: CYANOCOBALAMIN 500 MCG TAB PO SCH (08:41)
[2024-09-11] MEDS: FOLIC ACID 1MG TAB PO SCH (08:43)
[2024-09-11] MEDS: TORSEMIDE 20 MG TAB PO SCH (08:43)
[2024-09-11] MEDS: FERRIC CARBOXYMALTOSE INJ 750 MG, VIAL MATE ADAPTER 1 EACH in NS 100 ML IV ONE (08:45)
[2024-09-11] MEDS: ALBUTEROL 90 MCG/ACT 8GM HFA INHALER INH SCH ×2 (09:00→16:00)
[2024-09-11] MEDS ORDERED: TORSEMIDE 20 MG TAB PO SCH (09:00)
[2024-09-11 12:00] VITALS: BP 155/66; TEMP 98.1; O2SAT 92
[2024-09-11 15:45] VITALS: BP 175/62; TEMP 97.7; O2SAT 90
[2024-09-11 16:39] VITALS: BP 173/75; O2SAT 89
[2024-09-11 20:15] VITALS: BP 174/74; TEMP 97.5; O2SAT 90
[2024-09-11] MEDS: cloNIDine 0.1MG TABLET PO SCH (20:46)
[2024-09-12 04:15] VITALS: BP 166/68; TEMP 97.9; O2SAT 93
[2024-09-12 06:23] LABS: BASO # 0.1 10^3/uL (0.0-0.2); BASO % 0.9 % (0.0-1.0); EOS # 0.3 10^3/uL (0.0-0.5); EOS % 3.7 % (0.0-3.0); HEMOGLOBIN 8.7 g/dl (12.0-15.5); LYMPH # 1.4 10^3/uL (1.5-5.0); LYMPH % 18.7 % (24.0-44.0); MEAN CORPUSCULAR HEMOGLOBIN 23.8 pg (27.0-33.0); MEAN CORPUSCULAR VOLUME 79.2 fl (80.0-96.0); MONO # 0.8 10^3/uL (0.0-0.8); MONO % 10.4 % (2.0-8.0); NEUTROPHILS # 4.9 10^3/uL (1.5-8.5); NEUTROPHILS % 66.2 % (36.0-66.0); PLATELET COUNT, AUTOMATED 419 10^3/uL (150-450); RED BLOOD COUNT 3.66 10^6/uL (4.00-5.40); WHITE BLOOD COUNT 7.4 10^3/uL (4.0-10.0)
[2024-09-12 06:56] LABS: CALCIUM LEVEL 8.4 MG/DL (8.3-10.6); CREATININE FOR GFR 1.23 MG/DL (0.55-1.30); GLOMERULAR FILTRATION RATE 43.9 (>32); POTASSIUM SERUM 3.3 MMOL/L (3.5-5.1)
[2024-09-12 08:26] VITALS: BP 154/66
[2024-09-12] MEDS: CARVedilol 12.5 MG TAB PO SCH (08:26)
[2024-09-12] MEDS: POTASSIUM CHLORIDE 10MEQ SR TABLET PO ONE (08:27)
[2024-09-12 12:00] VITALS: BP 152/65; TEMP 97.7; O2SAT 90
[2024-09-12] MEDS ORDERED: TORS20TA2 PO (14:44)
[2024-09-12] MEDS ORDERED: CARV25TA PO (14:44)
[2024-09-12] MEDS ORDERED: POTA-151 PO (16:47)
== END 2024-09-12 15:58 | disposition home or self-care (01) | DRG 291 ==
LOC: M ED 08:04 → EDBD 08:04 → M ED INP 12:14 → M PCU 13:05 → M MSPAV 09-10 21:07
PROVIDERS: ADMIT Internal Medicine Nephrology; ATTEND Student in an Organized Health Care Education/Training Program
DX: I13.0 Hypertensive heart and chronic kidney disease with heart failure and stage 1 through stage 4 chronic kidney disease, or unspecified chronic kidney disease (principal); I50.33 Acute on chronic diastolic (congestive) heart failure; J96.21 Acute and chronic respiratory failure with hypoxia; I69.351 Hemiplegia and hemiparesis following cerebral infarction affecting right dominant side; F32.A Depression, unspecified; E11.22 Type 2 diabetes mellitus with diabetic chronic kidney disease; I16.0 Hypertensive urgency; N18.30 Chronic kidney disease, stage 3 unspecified; D63.8 Anemia in other chronic diseases classified elsewhere; I69.391 Dysphagia following cerebral infarction; I49.5 Sick sinus syndrome; I25.10 Atherosclerotic heart disease of native coronary artery without angina pectoris; G89.29 Other chronic pain; M48.00 Spinal stenosis, site unspecified; Z95.0 Presence of cardiac pacemaker; K21.9 Gastro-esophageal reflux disease without esophagitis; M19.90 Unspecified osteoarthritis, unspecified site; D50.9 Iron deficiency anemia, unspecified; Z85.3 Personal history of malignant neoplasm of breast; F41.9 Anxiety disorder, unspecified; Z79.899 Other long term (current) drug therapy; Z91.018 Allergy to other foods; Z88.8 Allergy status to other drugs, medicaments and biological substances; Z88.5 Allergy status to narcotic agent; Z88.0 Allergy status to penicillin; Z79.4 Long term (current) use of insulin; Z95.2 Presence of prosthetic heart valve; Z87.891 Personal history of nicotine dependence; R33.9 Retention of urine, unspecified; Z66 Do not resuscitate